=== PATIENT | female | born 1955 | race Caucasian/White ===

== ENCOUNTER → 2017-02-05 | Outpatient (CLI) | payer MEDICARE, OTHER ==
--- NOTE | 2017-02-05 16:27 | XR ---
EXAMINATION TYPE: XR orbit detect foreign body DATE OF EXAM: 02/05/2017 COMPARISON: NONE HISTORY: Pre-MRI foreign body TECHNIQUE: 3 views of the orbits are obtained. FINDINGS: No metallic intraorbital foreign body is seen to prevent MRI study. Punctate densities on o ne projection do not persist on additional views and are likely in the overlying skin. IMPRESSION: As above
--- NOTE | 2017-02-05 17:23 | MR ---
MR brain without contrast HISTORY: R 56.9, other convulsions seizures Multiplanar multisequence imaging through the brain No comparisons Encephalomalacia is present within the distribution of the middle cerebral artery on the left with as sociated gliotic change within the affected and adjacent brain, mild ex vacuo phenomenon present at t he left lateral ventricle due to volume loss. Internal carotid arteries, basilar artery, portions of the middle cerebral arteries show vascular flow voids. There is some cortical atrophy. No hemorrhage or hydrocephalus. No restricted diffusion to suggest subacute ischemia. Cerebellopontine angles, pitu itary, cervical medullary junction are within normal limits. There is some mild volume loss in the co rpus callosum suspected. The orbits show a symmetric appearance. Mild inflammatory change present in the mastoid air cells bilaterally. IMPRESSION: Chronic infarct left middle cerebral artery. Additional findings above.
== END | disposition home or self-care (01) ==
LOC: RADMRIMAIN 15:28
PROVIDERS: ATTEND Nurse Practitioner Acute Care
DX: R56.9 Unspecified convulsions (principal); Z88.0 Allergy status to penicillin; Z88.5 Allergy status to narcotic agent
CPT/HCPCS: 70030; 70551

== ENCOUNTER 2017-07-24 11:04 | Day surgery (SDC) | payer MEDICARE, OTHER ==
[2017-07-24 13:14] VITALS: TEMP 99
[2017-07-24 13:32] LABS: Glucose,Whole Blood 100 mg/dL (75-99)
[2017-07-24] MEDS ORDERED: LACTATED RINGERS 1,000 ML IV ONE (13:33)
[2017-07-24] MEDS ORDERED: LIDOCAINE 1% 20 ML VIAL (10MG/ML) FOR IV START INTRADERMA ONE (13:34)
[2017-07-24] MEDS ORDERED: MIDAZOLAM 2 MG/2 ML VIAL ONE (13:51)
[2017-07-24] MEDS ORDERED: KETAMINE 10 MG/ML 20 ML VIAL ONE (13:51)
[2017-07-24] MEDS ORDERED: PROPOFOL 10 MG/ML 20 ML VIAL IV ONE (13:51)
--- NOTE | 2017-07-24 14:23 | P.PCN ---
Date of Procedure: 07/24/17 Procedure(s) Performed: Brief history: Patient is a pleasant 62-year-old pleasant white female, resident of [facility] as scheduled for an elective upper endoscopy as well as colonoscopy as a part of evaluation of iron deficiency anemia. She is on Coumadin which has been on hold for the last 1 week duration. Procedure performed: Esophagogastroduodenoscopy with biopsy Colonoscopy Preoperative diagnosis: Iron deficiency anemia Anesthesia: MAC Procedure: After informed consent was obtained from the patient was brought into the endoscopy unit and IV sedation was administered by anesthesia under continuous monitoring. Initially upper endoscopy was done. The Olympus GF 160 video endoscope was inserted inserted into the mouth and esophagus intubated without any difficulty and was gradually advanced into the stomach and duodenum and carefully examined. The bulb and second part of the duodenum appeared normal. The scope was then withdrawn into the stomach adequately insufflated with air and upon careful examination the antrum and body, cardia and fundus had diffuse gastritis and biopsies were done from the antrum. The scope was then withdrawn into the esophagus. The GE junction was located at 40 cm to the incisors. It appeared regular with no erythema erosions or ulcerations. Rest of the esophagus appeared normal. Patient tolerated the procedure well. At this time the patient continued to remain sedation. Initial digital rectal examination was normal. Olympus CF 160 video colonoscope was then inserted into the rectum and gradually advanced to the cecum without any difficulty. Careful examination was performed as the scope was gradually being withdrawn. The prep was excellent. The cecum, ascending colon, transverse colon, descending colon, sigmoid colon and rectum appeared normal. Scattered left sided diverticulosis seen. Retroflexion was performed in the rectum and no lesions were noted. Patient tolerated the procedure well. Impression: 1. Upper endoscopy revealed severe diffuse gastritis involving the entire stomach but no evidence of esophagitis or peptic ulcer disease 2. Colonoscopy revealed scattered sigmoidal diverticulosis, no evidence of colorectal neoplasia Recommendations: Findings of this examination were discussed with the patient as well as her family. She was advised to follow with the biopsy results. She was given a prescription for Prilosec 20 mg daily to be taken half hour before breakfast. She can resume Coumadin today.
[2017-07-24 14:41] VITALS: RESP 16
[2017-07-24 14:55] VITALS: BP 147/71; PULSE 97
--- NOTE | 2017-07-31 09:55 | CDI ---
Dr. Min Presley, As per operative notes Indication for EGD and colonoscopy and H&P documented as Iron deficiency anemia; Anaesthesia record GI bleeding was documented. EGD report impression states Gastritis and Colonoscopy impression states Diverticulosis Based on your clinical opinion please clarify whether GI Bleeding is the current condition or patients history and if it is current, please confirm the etiology of GI bleeding. Sincerely, Aubrey Hamm-pulmonologist Radha Myers MBA, [employer]HW[employer], [facility] Political Consultant, [facility] [phone] [facility]
== END 2017-07-24 15:15 ==
LOC: ORWHC2ENDO 11:04
PROVIDERS: ATTEND Internal Medicine Gastroenterology
DX: K29.50 Unspecified chronic gastritis without bleeding (principal); E78.5 Hyperlipidemia, unspecified; K57.30 Diverticulosis of large intestine without perforation or abscess without bleeding; E11.40 Type 2 diabetes mellitus with diabetic neuropathy, unspecified; D50.9 Iron deficiency anemia, unspecified; I10 Essential (primary) hypertension; Z88.0 Allergy status to penicillin; Z88.5 Allergy status to narcotic agent; Z91.041 Radiographic dye allergy status; Z86.73 Personal history of transient ischemic attack (TIA), and cerebral infarction without residual deficits; Z79.82 Long term (current) use of aspirin; Z79.4 Long term (current) use of insulin; Z79.01 Long term (current) use of anticoagulants; Z79.899 Other long term (current) drug therapy
CPT/HCPCS: 88305; 88342; 45378; 43239; J2250; J2704

== ENCOUNTER 2018-08-30 19:18 | Inpatient (IN) | payer MEDICARE, OTHER ==
[2018-08-30] MEDS ORDERED: NALOXONE 0.4 MG/ML 1 ML VIAL IV PRN (23:17)
[2018-08-30] MEDS ORDERED: ACETAMINOPHEN TAB 325 MG TAB PO PRN (23:17)
--- NOTE | 2018-08-30 23:17 | ED ---
URI HPI - General Chief Complaint: Upper Respiratory Infection Stated Complaint: Influenza Time Seen by Provider: 08/30/18 19:28 Source: patient, family, RN/MD, EMS, RN notes reviewed, old records reviewed Mode of arrival: EMS Limitations: altered mental status - History of Present Illness Initial Comments: This was a 63-year-old female with a history of CVA renal insufficiency hyperlipidemia reflux hypertension atherosclerotic heart disease> coma who is a care home resident who is a presented to [facility] today with complaints of weakness for the past 2 days confusion and weakness is struggling with her ADLs. Fever was noted today some generalized tremor. She was taken to the hospital and found to have type A influenza. She also has renal insufficiency. She was transferred here for further evaluation and treatment. No evidence of new CVA or neurological findings were noted. MD Complaint: fever, cough, other - Related Data Home Medications Medication Instructions Recorded Confirmed ALPRAZolam [Xanax] 0.25 mg PO DAILY PRN 07/24/17 08/30/18 Allopurinol [Zyloprim] 200 mg PO DAILY 07/24/17 08/30/18 Aspirin 81 mg PO DAILY 07/24/17 08/30/18 Atorvastatin [Lipitor] 10 mg PO DAILY 07/24/17 08/30/18 Ergocalciferol [Vitamin D2 1 tab PO QMONTH 07/24/17 08/30/18 (DRISDOL)] Lisinopril [Zestril] 10 mg PO DAILY 07/24/17 08/30/18 Pregabalin [Lyrica] 75 mg PO BID@0700,1900 07/24/17 08/30/18 Acetaminophen [Tylenol] 1,000 mg PO Q8HR PRN 08/30/18 08/30/18 Docusate [Colace] 100 mg PO DAILY PRN 08/30/18 08/30/18 Dorzolamide 2% [Trusopt 2%] 1 drop BOTH EYES BID@0500,2000 08/30/18 08/30/18 Epoetin Josh [Epogen] 20,000 unit SQ Q7D 08/30/18 08/30/18 Ferrous Sulfate [Feosol] 325 mg PO DAILY 08/30/18 08/30/18 Fluorometholone 0.1% Ophth Juanita 1 drop RIGHT EYE DAILY 08/30/18 08/30/18 [Fml] Insulin Aspart [NovoLOG] 10 unit SQ DAILY@1700 08/30/18 08/30/18 Insulin Aspart [NovoLOG] 15 unit SQ DAILY@1200 08/30/18 08/30/18 Insulin Glargine [Lantus] 45 unit SQ DAILY@0700 08/30/18 08/30/18 Latanoprost/Pf [Latanoprost 0.005% 1 drop BOTH EYES DAILY@199908/30/18 08/30/18 Eye Drop] Magnesium Hydroxide [Milk of 2,400 mg PO DAILY PRN 08/30/18 08/30/18 Magnesia] Na Phos,M-B/Na Phos,Di-Ba [Fleet 133 ml RECTAL Q72H PRN 08/30/18 08/30/18 Adult] Nitroglycerin Sl Tabs [Nitrostat] 0.4 mg SL DIRECTED 08/30/18 08/30/18 Omeprazole 20 mg PO BID@0600,1600 08/30/18 08/30/18 Ondansetron HCl [Zofran] 4 mg PO Q4H PRN 08/30/18 08/30/18 Pioglitazone [Actos] 30 mg PO DAILY@0700 08/30/18 08/30/18 Sertraline [Zoloft] 25 mg PO DAILY@0700 08/30/18 08/30/18 Sertraline [Zoloft] 50 mg PO DAILY@0700 08/30/18 08/30/18 Timolol 0.5% Ophth Soln [Timoptic 1 drop BOTH EYES BID@0500,1700 08/30/18 0.5% Ophth Soln] Torsemide [Demadex] 40 mg PO DAILY@0700 08/30/18 08/30/18 Warfarin [Coumadin] 3 mg PO HS@199908/30/18 08/30/18 amLODIPine [Norvasc] 5 mg PO DAILY 08/30/18 08/30/18 Allergies Allergy/AdvReac Type Severity Reaction Status Date / Time Iodine and Iodide Containing Allergy Rash/Hives Verified 08/30/18 20:11 Produc Penicillins Allergy Rash/Hives Verified 08/30/18 20:11 codeine AdvReac Itching Verified 08/30/18 20:11 IV DYE Allergy Rash/Hives Uncoded 07/24/17 13:20 Review of Systems ROS Statement: Those systems with pertinent positive or pertinent negative responses have been documented in the HPI. ROS Other: All systems not noted in ROS Statement are negative. Past Medical History Past Medical History: Coronary Artery Disease (CAD), Heart Failure, CVA/TIA, Diabetes Mellitus, Deep Vein Thrombosis (DVT), GERD/Reflux, Hypertension, Pulmonary Embolus (PE), Renal Disease Additional Past Medical History / Comment(s): tremmors, right sided weakness from CVA. Immobile uses hiral lift at [facility]. History of Any Multi-Drug Resistant Organisms: None Reported Past Surgical History: Tonsillectomy Additional Past Surgical History / Comment(s): G tube, pressure pump right eye Past Psychological History: Anxiety, Depression Smoking Status: Never smoker Past Alcohol Use History: None Reported Past Drug Use History: None Reported General Exam - General Exam Comments Initial Comments: This is a well-developed obese female who was awake and alert slow to respond with the stigmata of her previous CVA Limitations: altered mental status General appearance: alert, lethargic Head exam: Present: atraumatic, normocephalic, normal inspection Eye exam: Present: normal appearance, PERRL, EOMI. Absent: scleral icterus, conjunctival injection, periorbital swelling ENT exam: Present: mucous membranes dry Neck exam: Present: normal inspection, full ROM, other (No stridor JVD or bruits ). Absent: tenderness, meningismus, lymphadenopathy Respiratory exam: Present: normal lung sounds bilaterally. Absent: respiratory distress, wheezes, rales, rhonchi, stridor Cardiovascular Exam: Present: regular rate, normal rhythm, normal heart sounds. Absent: systolic murmur, diastolic murmur, rubs, gallop, clicks GI/Abdominal exam: Present: soft, normal bowel sounds. Absent: distended, tenderness, guarding, rebound, rigid Rectal exam: Present: deferred Extremities exam: Present: normal inspection, normal capillary refill, other ( She does demonstrate right maisha-paresis). Absent: tenderness, pedal edema, joint swelling, calf tenderness Back exam: Present: normal inspection Neurological exam: Present: alert, oriented X3, CN II-XII intact, motor sensory deficit Psychiatric exam: Present: normal affect, normal mood Skin exam: Present: warm, dry, intact, normal color. Absent: rash Course Vital Signs 08/30/18 08/30/18 08/30/18 19:24 19:27 19:30 Temperature 99.1 F Pulse Rate 91 92 Respiratory 20 18 Rate Blood Pressure 126/64 124/66 124/66 O2 Sat by Pulse 97 Oximetry 08/30/18 08/30/18 08/30/18 19:40 19:50 20:00 Temperature Pulse Rate 93 90 91 Respiratory 22 18 17 Rate Blood Pressure 126/64 126/64 126/64 O2 Sat by Pulse 97 99 97 Oximetry 08/30/18 08/30/18 08/30/18 20:07 20:10 20:20 Temperature Pulse Rate 90 93 Respiratory 18 15 22 Rate Blood Pressure 106/59 106/59 O2 Sat by Pulse 97 97 Oximetry 08/30/18 08/30/18 08/30/18 20:30 20:40 20:50 Temperature Pulse Rate 91 90 90 Respiratory 18 18 17 Rate Blood Pressure 106/59 105/77 105/77 O2 Sat by Pulse 98 98 98 Oximetry 08/30/18 08/30/18 08/30/18 21:00 21:10 21:20 Temperature Pulse Rate 92 90 91 Respiratory 15 17 16 Rate Blood Pressure 105/77 117/59 117/59 O2 Sat by Pulse 98 98 99 Oximetry 08/30/18 08/30/18 21:30 21:40 Temperature Pulse Rate 91 89 Respiratory 17 16 Rate Blood Pressure 117/59 111/95 O2 Sat by Pulse 97 97 Oximetry Medical Decision Making - Medical Decision Making I did review the materials presented with the patient. She does have influenza type A and renal insufficiency failure to thrive febrile illness she will be admitted I did discuss case with Dr. Guevara Disposition Clinical Impression: Influenza, Febrile illness, acute, Failure to thrive, History of CVA ( cerebrovascular accident) Disposition: ADMITTED IP TO THIS [facility] Condition: Stable Referrals: Mina Lopez MD [Primary Care Provider] - 1-2 days
[2018-08-30] MEDS ORDERED: NITROGLYCERIN SL TABS 0.4 MG TAB SUBLINGUAL PRN (23:19)
[2018-08-30] MEDS ORDERED: ONDANSETRON 4 MG TAB PO PRN (23:19)
[2018-08-30] MEDS ORDERED: ACETAMINOPHEN TAB 500 MG TAB PO PRN (23:19)
[2018-08-30] MEDS ORDERED: ALPRAZolam 0.25 MG TAB PO PRN (23:19)
[2018-08-30] MEDS ORDERED: MAGNESIUM HYDROXIDE 2,400 MG/10 ML CUP PO PRN (23:19)
--- NOTE | 2018-08-30 23:23 | ED ---
Disposition Clinical Impression: Influenza, Febrile illness, acute, Failure to thrive, History of CVA ( cerebrovascular accident), Renal insufficiency syndrome Disposition: ADMITTED IP TO THIS HOSP Condition: Stable Referrals: Mina Lopez MD [Primary Care Provider] - 1-2 days
[2018-08-30] MEDS ORDERED: NA PHOS,M-B/NA PHOS,DI-BA 133 ML ENEMA RECTAL PRN (23:30)
[2018-08-31] MEDS: SODIUM CHLORIDE 0.9% 1,000 ML IV SCH ×2 (00:11→12:29)
[2018-08-31] MEDS: TIMOLOL 0.5% OPHTH DROPS 5 ML BTL BOTH EYES SCH ×2 (05:18→17:13)
[2018-08-31] MEDS: PANTOPRAZOLE 40 MG TABLET PO SCH ×2 (05:18→16:08)
[2018-08-31] MEDS: DORZOLAMIDE HCL 2% DROPS 10 ML BTL BOTH EYES SCH ×2 (05:19→19:25)
[2018-08-31] MEDS ORDERED: TORSEMIDE 20 MG TAB PO SCH (07:00)
[2018-08-31 07:25] LABS: Glucose,Whole Blood 117 mg/dL (75-99)
[2018-08-31 08:36] LABS: INR 2.6 (<1.2); Prothrombin Time 25.1 sec (9.0-12.0)
[2018-08-31] MEDS: INSULIN DETEMIR (LEVEMIR) 100 UNIT/ML SYR SQ SCH (08:57)
[2018-08-31] MEDS: ALLOPURINOL 100 MG TAB PO SCH (08:57)
[2018-08-31] MEDS: SERTRALINE 50 MG TAB PO SCH (08:58)
[2018-08-31] MEDS: PREGABALIN 75 MG CAP PO SCH ×2 (08:58→19:25)
[2018-08-31] MEDS: ASPIRIN 81 MG PO SCH (08:58)
[2018-08-31] MEDS: ATORVASTATIN 10 MG TAB PO SCH (08:58)
[2018-08-31] MEDS: amLODIPine 5 MG TAB PO SCH (08:58)
[2018-08-31] MEDS: FERROUS SULFATE 325 MG TAB PO SCH (08:58)
[2018-08-31] MEDS: SERTRALINE 25 MG TAB PO SCH (08:58)
[2018-08-31] MEDS: PIOGLITAZONE 30 MG TAB PO SCH (08:59)
[2018-08-31] MEDS: FLUOROMETHOLONE 0.1% OPHTH DROPS 5 ML BTL RIGHT EYE SCH (08:59)
[2018-08-31] MEDS ORDERED: DOCUSATE 100 MG CAP PO PRN (09:00)
[2018-08-31] MEDS ORDERED: LISINOPRIL 10 MG TAB PO SCH (09:00)
[2018-08-31 11:35] LABS: Glucose,Whole Blood 173 mg/dL (75-99)
[2018-08-31] MEDS: INSULIN ASPART (NovoLOG) 100 UNIT/ML VIAL SQ SCH ×2 (12:29→17:13)
--- NOTE | 2018-08-31 15:17 | CONS ---
CONSULTATION Patient is a 63-year-old female with a history of chronic kidney disease and NKF stage IV, secondary to nephrosclerosis. Her last creatinine in the office was 2.5 on 06/25 with estimated GFR 19.5 mL/minute. Patient also has significant bilateral lower extremity edema for which she is maintained on diuretics. She was admitted to the hospital and initially presented to [facility] with increasing weakness, fever, not feeling well, runny nose and cough. She was found to be positive for influenza A and was transferred to May. Patient states she is feeling slightly better. She continues to have the cough. She denies any significant nausea, vomiting or abdominal pain. PAST MEDICAL HISTORY: Coronary artery disease, history of CVA, TIA, obesity, type 2 diabetes, previous history of DVT, CKD, stage IV secondary to nephrosclerosis, previous history of PE, right-sided hemiparesis. PAST SURGICAL HISTORY: Tonsillectomy and previous history of G-tube. SOCIAL HISTORY: Negative for smoking, drug abuse or alcohol abuse. MEDICATIONS: At home prior to admission included Lipitor, Zyloprim, Xanax, aspirin, Drisdol, Zestril, Lyrica, Tylenol, Epogen, iron, insulin, omeprazole, Zofran, Actos, Zoloft, Coumadin, Demadex, Norvasc. ALLERGIES: Include IODINE, PENICILLIN, both of which cause rash and hives. PHYSICAL EXAMINATION: Patient is comfortable, awake. She is not in any acute distress. Alert and oriented x3. Blood pressure is 124/74, heart rate 88 per minute. She is afebrile. Examination of the heart, S1, S2. Examination of the lungs, bilateral breath sounds are heard. Abdomen is soft, nontender, obese. Examination of lower extremities shows edema 2+ bilaterally. MEND WORKER exam is grossly intact. LABS: We will obtain labs from today. ASSESSMENT: 1. Chronic kidney disease stage IV with previous creatinine in May of 2.5 mg/dL with GFR at 19.5 mL/minute, secondary to nephrosclerosis. 2. Influenza A. 3. Hypertension with chronic kidney disease, stage IV. 4. Anemia of chronic disease with previous history of iron deficiency as well. 5. Type 2 diabetes, maintained on insulin off of metformin as outpatient. PLAN: Hold off on the Zestril for now. Check labs today as well as in a.m. May continue with IV fluids. However, I will decrease the fluids to 50 mL an hour and I will hold the Demadex as well. PLAN: Discontinue lisinopril, discontinue Demadex. Decrease IV fluids. Repeat labs in a.m. Avoid nephrotoxic agents. Avoid phosphate enemas. Thank you for this consultation. Will continue to follow the patient with you during her hospitalization. MMODL / IJN: [id number] /
[2018-08-31 16:59] LABS: Glucose,Whole Blood 155 mg/dL (75-99)
[2018-08-31] MEDS: LATANOPROST 0.005% OPHTH DROPS 2.5 ML BTL BOTH EYES SCH (19:25)
[2018-08-31] MEDS: WARFARIN 3 MG TAB PO SCH (19:25)
[2018-08-31 20:22] LABS: Glucose,Whole Blood 127 mg/dL (75-99)
--- NOTE | 2018-08-31 20:40 | HP ---
HISTORY AND PHYSICAL DATE OF SERVICE: August 30, 2018. DATE OF SERVICE: August 31, 2018. PRESENTING COMPLAINT: Influenza positive. HISTORY OF PRESENTING COMPLAINT: This is a 63-year-old patient who follows with Dr. Mina Lopez. The patient is a resident of [facility], was sent here from [facility]. She was feeling weak tired and congested. She was positive for influenza A and transferred down here. Chronic stable medical conditions include coronary artery disease, congestive heart failure, diabetes, GERD, hypertension, right-sided weakness, anxiety, depression. The patient is pretty much bed bound and uses a Fany lift. The patient has slight cough. Appetite is slightly gone down. The patient has got chronic kidney disease for which Nephrology was consulted. The patient is not the best of historians. Can answer some simple questions. REVIEW OF SYSTEMS: CONSTITUTIONAL: Tired. HEENT congested. RESPIRATORY: Slight cough, congested. CARDIOVASCULAR: No chest pain. GASTROINTESTINAL: None. GENITOURINARY: Some incontinence. MUSCULOSKELETAL: Pain in the joints. Weakness on the right side. PSYCHIATRY: Anxiety and depression. NEUROLOGICAL: The patient has some tremors at baseline and some right-sided weakness. PAST MEDICAL HISTORY: Coronary artery disease, congestive heart failure, stroke, diabetes, DVT, GERD, hypertension, PE, chronic kidney disease, right-sided weakness from prior stroke, uses a Fany lift. PAST SURGICAL HISTORY: Tonsillectomy, NG tube, pressure pump in the right eye. PSYCH HISTORY: Anxiety and depression. SOCIAL HISTORY: Does not smoke or drink alcohol. Fany lift is used. Resident of [facility]. FAMILY HISTORY: The patient is not able to tell. HOME MEDICATIONS: 1. Norvasc 5 mg a day. 2. Coumadin 3 mg q.h.s. 3. Demadex 40 mg p.o. daily. 4. Timoptic 0.5% 1 drop to both eyes b.i.d. 5. Zoloft 25 mg a day. 6. Lyrica 75 mg b.i.d. 7. Actos 30 mg a day. 8. Zofran 4 mg q.4 p.r.n. 9. Omeprazole 20 mg b.i.d. 10.Nitrostat 0.4 sublingual p.r.n. 11.Adult Fleet 133 mL q72 hours p.r.n. 12.Milk of magnesia 2400 mg p.o. daily p.r.n. 13.Zestril 10 mg p.o. daily. 14.Latanoprost 0.005% 1 drop both eyes daily. 15.Lantus 45 units subcu daily. 16.NovoLog 10 units at 5:00 pm, 15 units with lunch. 17.Fluorometholone 0.1% eyedrops 1 drop right eye daily. 18.Iron 325 p.o. daily. 19.Vitamin D2 1 tablet p.o. every month. 20.Epogen 25 units every 7 days. 21.Trusopt 2% 1 drop to both eyes b.i.d. 22.Colace 100 mg daily p.r.n. 23.Lipitor 10 mg p.o. daily. 24.Aspirin 81 mg p.o. daily. 25.Allopurinol 200 mg p.o. daily. 26.Tylenol 1000 mg p.o. q.8h p.r.n. 27.Xanax 0.25 p.o. daily p.r.n. ALLERGIES: TO IODINE, PENICILLIN, IV DYE. PHYSICAL EXAMINATION: VITAL SIGNS: Vital signs on presentation: Temperature 99.1, pulse 91, respiration 20, blood pressure 126/64, pulse ox 97% on 2 L. GENERAL APPEARANCE: Well built, BMI 45.4, sitting up, tired appearing. EYES: Pupils equal. Conjunctivae normal. HEENT: External appearance of nose and ears normal. Oral cavity normal. NECK: Short and thick. JVD unable to assess. Mass not palpable. RESPIRATORY: Effort increased. LUNGS: Decreased breath sounds. Some expiratory crackles. CHEST: Congested. CARDIOVASCULAR: Heart sounds muffled, minimal edema. ABDOMEN: Distended, soft. Liver and spleen not palpable. LYMPHATICS: No lymph nodes palpable in the neck and axilla. PSYCHIATRY: The patient is able to answer some questions, often times is quiet. NEUROLOGICAL: Pupils equal. No facial asymmetry. Some weakness on the right side. INVESTIGATIONS: Blood work from here shows INR of 2.6. Accu-Cheks are 117, 173. ASSESSMENT: 1. Acute influenza A with pneumonitis. 2. Chronic kidney disease, stage III, suspected from nephrosclerosis. 3. Coronary artery disease. 4. Right-sided weakness from a prior stroke. 5. Diabetes mellitus type 2. 6. Gastroesophageal reflux disease. 7. Essential hypertension. 8. Medical debility uses a Fany lift. 9. Morbid obesity BMI 45.4. 10.Anxiety and depression, not otherwise specified. PLAN: Home medications resumed. Nephrology was consulted. Tamiflu will be continued. Care was attempted to be discussed with the patient. Follow. MMODL / IJN: [id number] /
[2018-08-31] MEDS: OSELTAMIVIR 75 MG CAP PO SCH (21:23)
[2018-09-01] MEDS: TIMOLOL 0.5% OPHTH DROPS 5 ML BTL BOTH EYES SCH ×2 (05:51→17:28)
[2018-09-01] MEDS: PANTOPRAZOLE 40 MG TABLET PO SCH ×2 (05:51→17:27)
[2018-09-01] MEDS: DORZOLAMIDE HCL 2% DROPS 10 ML BTL BOTH EYES SCH ×2 (05:51→21:33)
[2018-09-01 07:13] LABS: Glucose,Whole Blood 97 mg/dL (75-99)
[2018-09-01 07:56] LABS: Prothrombin Time 19.4 sec (9.0-12.0)
[2018-09-01 08:05] LABS: Anisocytosis Slight; HCT 31.6 % (34.0-46.0); HGB 9.5 gm/dL (11.4-16.0); Hypochromasia Marked; MCHC 30.2 g/dL (31.0-37.0); MCV 99.3 fL (80.0-100.0); Macrocytosis Slight; Mean Platelet Volume 8.4; Platelet Count 209 k/uL (150-450); RBC 3.18 m/uL (3.80-5.40); RDW 17.7 % (11.5-15.5); WBC 4.2 k/uL (3.8-10.6)
[2018-09-01] MEDS: FERROUS SULFATE 325 MG TAB PO SCH (08:06)
[2018-09-01] MEDS: ATORVASTATIN 10 MG TAB PO SCH (08:06)
[2018-09-01] MEDS: PREGABALIN 75 MG CAP PO SCH ×2 (08:06→17:28)
[2018-09-01] MEDS: ASPIRIN 81 MG PO SCH (08:07)
[2018-09-01] MEDS: amLODIPine 5 MG TAB PO SCH (08:07)
[2018-09-01] MEDS: SERTRALINE 50 MG TAB PO SCH (08:07)
[2018-09-01] MEDS: ALLOPURINOL 100 MG TAB PO SCH (08:07)
[2018-09-01] MEDS: SERTRALINE 25 MG TAB PO SCH (08:08)
[2018-09-01] MEDS: PIOGLITAZONE 30 MG TAB PO SCH (08:08)
[2018-09-01] MEDS: SODIUM CHLORIDE 0.9% 1,000 ML IV SCH (08:08)
[2018-09-01] MEDS: OSELTAMIVIR 75 MG CAP PO SCH ×2 (08:09→21:32)
[2018-09-01] MEDS: FLUOROMETHOLONE 0.1% OPHTH DROPS 5 ML BTL RIGHT EYE SCH (08:10)
[2018-09-01 08:12] LABS: Calcium 8.6 mg/dL (8.4-10.2); Potassium 4.9 mmol/L (3.5-5.1)
[2018-09-01] MEDS: INSULIN DETEMIR (LEVEMIR) 100 UNIT/ML SYR SQ SCH (08:15)
[2018-09-01 10:06] LABS: Eosinophils # (M) 0.08 k/uL (0-0.7); Lymphocytes # (M) 1.39 k/uL (1.0-4.8); Monocytes # (M) 0.29 k/uL (0-1.0); Neutrophils # (M) 2.44 k/uL (1.3-7.7); Neutrophils % (M) 58 %; Nucleated Red Blood Cells 0 /100 WBC (0-0); Total Cells Counted 100
[2018-09-01 11:44] LABS: Glucose,Whole Blood 175 mg/dL (75-99)
[2018-09-01] MEDS: INSULIN ASPART (NovoLOG) 100 UNIT/ML VIAL SQ SCH ×2 (12:00→17:29)
[2018-09-01 16:42] LABS: Glucose,Whole Blood 170 mg/dL (75-99)
[2018-09-01 19:56] LABS: Glucose,Whole Blood 207 mg/dL (75-99)
[2018-09-01] MEDS: WARFARIN 3 MG TAB PO SCH (21:32)
[2018-09-01] MEDS: LATANOPROST 0.005% OPHTH DROPS 2.5 ML BTL BOTH EYES SCH (21:33)
--- NOTE | 2018-09-01 22:08 | PN ---
PROGRESS NOTE Patient is seen for followup for CKD, stage IV. Her renal function is close to baseline, with creatinine at 2.4 mg/dL now. Patient was admitted to the hospital with influenza A. She initially presented to [facility] and was transferred over. Patient was maintained on IV fluids, which are now decreased to 50 mL/hour. Patient is trying to increase her oral intake. She denies any chest pain. She continues to have significant cough. On examination, blood pressure was 109/51, heart rate 84 per minute. Patient is afebrile. EXAMINATION OF THE HEART: S1 and S2. EXAMINATION OF LUNGS: Bilateral breath sounds are heard. Wheezing is heard bilaterally. ABDOMEN: Soft, non-tender. Examination of lower extremities shows chronic skin changes, edema 1+ bilaterally. Labs show sodium of 143, potassium 4.9, BUN 105, serum creatinine of 2.47. ASSESSMENT: 1. Chronic kidney disease, stage IV, secondary to nephrosclerosis. Renal function at baseline. 2. Chronic lower extremity edema with some degree of volume overload. I will discontinue the IV fluids and patient will be encouraged to increase her oral intake. The KORTNEY inhibitors are currently on hold. Blood pressure is on the lower side. I will also hold the Norvasc for now. 3. Influenza A, maintained on Tamiflu. 4. Anemia of chronic disease with previous history of iron deficiency as outpatient. 5. Type 2 diabetes, maintained on insulin. PLAN: Discontinue IV fluids. Encourage increased oral intake. Hold off on the Norvasc, as blood pressure is low. Repeat labs in a.m. Continue to avoid nephrotoxic agents. We may need to resume her diuretics, depending upon her volume status tomorrow. MMODL / IJN: [id number] /
[2018-09-01] MEDS: guaiFENesin 600 MG TABLET.ER PO SCH (22:58)
--- NOTE | 2018-09-01 23:32 | PN ---
PROGRESS NOTE DATE OF SERVICE: 09/01/2018. PRESENTING COMPLAINT: Cough. INTERVAL HISTORY: Patient has multiple medical problems, presented with influenza A and secondary bronchospasm. Also has underlying chronic kidney disease. The patient's sister is at the bedside. The patient at baseline requires Fany lift. Somewhat congested. Was tolerating a diet. REVIEW OF SYSTEMS: Done for constitutional, cardiovascular, GI, pulmonary; relevant findings as above. CURRENT MEDICATIONS: Reviewed, that include Tamiflu. PHYSICAL EXAMINATION: Temperature 98.8, pulse 58, respirations 16, blood pressure 94/62, pulse 95% on room air. GENERAL APPEARANCE: Propped up in bed, awake. EYES: Pupils equal. Conjunctivae normal. NECK: JVD not raised. Mass not palpable. RESPIRATORY: Effort increased. LUNGS: Slightly decreased breath sounds. Some bronchospasm with crackles. CARDIOVASCULAR: 1st and 2nd heart sounds muffled. Minimal edema. ABDOMEN: Distended, soft. Liver and spleen not palpable. NEUROLOGIC: The patient is weak on the right side. Speech is slow at baseline. INVESTIGATIONS: Potassium 4.2, hemoglobin 9.5, potassium 4.9, BUN 105, creatinine 2.47. ASSESSMENT: 1. Acute influenza a with pneumonitis resulting in secondary bronchospasm. 2. Chronic kidney disease stage 4 from nephrosclerosis. 3. Coronary artery disease. 4. 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 5. Diabetes mellitus type 2. 6. Gastroesophageal reflux disease. 7. Essential hypertension. 8. Medical debility at baseline using Fany lift. 9. Morbid obesity BMI 55.4. 10.Anxiety and depression, not otherwise specified. 11.Coumadin monitoring. PLAN: Continue with Tamiflu and other medications. Will add some Mucinex and albuterol. Per Nephrology, Lasix has been discontinued. Care was discussed with the sister at the bedside. MMODL / IJN: [id number] /
[2018-09-02] MEDS: ALBUTEROL NEBULIZED 2.5 MG/3 ML INHALATION SCH ×5 (00:25→20:37)
[2018-09-02] MEDS: DORZOLAMIDE HCL 2% DROPS 10 ML BTL BOTH EYES SCH ×2 (06:04→19:37)
[2018-09-02] MEDS: PANTOPRAZOLE 40 MG TABLET PO SCH ×2 (06:04→17:33)
[2018-09-02] MEDS: TIMOLOL 0.5% OPHTH DROPS 5 ML BTL BOTH EYES SCH ×2 (06:04→17:33)
[2018-09-02 07:34] LABS: Glucose,Whole Blood 128 mg/dL (75-99)
[2018-09-02 08:03] LABS: Prothrombin Time 19.8 sec (9.0-12.0)
[2018-09-02] MEDS: FERROUS SULFATE 325 MG TAB PO SCH (08:05)
[2018-09-02] MEDS: SERTRALINE 50 MG TAB PO SCH (08:05)
[2018-09-02] MEDS: guaiFENesin 600 MG TABLET.ER PO SCH ×2 (08:06→19:37)
[2018-09-02] MEDS: ALLOPURINOL 100 MG TAB PO SCH (08:06)
[2018-09-02] MEDS: PREGABALIN 75 MG CAP PO SCH ×2 (08:06→19:37)
[2018-09-02] MEDS: ATORVASTATIN 10 MG TAB PO SCH (08:06)
[2018-09-02] MEDS: ASPIRIN 81 MG PO SCH (08:06)
[2018-09-02] MEDS: PIOGLITAZONE 30 MG TAB PO SCH (08:07)
[2018-09-02] MEDS: OSELTAMIVIR 75 MG CAP PO SCH (08:07)
[2018-09-02] MEDS: SERTRALINE 25 MG TAB PO SCH (08:07)
[2018-09-02] MEDS: INSULIN DETEMIR (LEVEMIR) 100 UNIT/ML SYR SQ SCH (08:08)
[2018-09-02] MEDS: FLUOROMETHOLONE 0.1% OPHTH DROPS 5 ML BTL RIGHT EYE SCH (08:08)
[2018-09-02 08:29] LABS: Calcium 8.5 mg/dL (8.4-10.2); Potassium 5.1 mmol/L (3.5-5.1)
[2018-09-02 12:00] LABS: Glucose,Whole Blood 198 mg/dL (75-99)
[2018-09-02] MEDS: INSULIN ASPART (NovoLOG) 100 UNIT/ML VIAL SQ SCH ×2 (12:14→17:34)
--- NOTE | 2018-09-02 12:47 | P.PN ---
Subjective Patient is seen in follow-up for acute kidney injury on chronic kidney disease. Patient has chronic kidney disease stage IV secondary to nephrosclerosis. GFR is at baseline. No vomiting or diarrhea. Oral intake is fair. She is nonoliguric. Diuretics are held. IV fluids were discontinued yesterday. Vital signs are stable. General: The patient appeared well nourished and normally developed. HEENT: Head exam is unremarkable. Neck is without jugular venous distension. LUNGS: Breath sounds decreased. HEART: Rate and Rhythm are regular. First and second heart sounds normal. No murmurs, rubs or gallops. ABDOMEN: Abdominal exam reveals normal bowel sounds. Non-tender and non- distended. No evidence of peritonitis. EXTREMITITES: No clubbing, cyanosis, or edema. Objective - Vital Signs Vital signs: Vital Signs Temp 98.5 F 09/02/18 07:00 Pulse 72 09/02/18 09:01 Resp 14 09/02/18 08:00 BP 93/52 09/02/18 07:00 Pulse Ox 96 09/02/18 08:49 Intake & Output 09/01/18 09/02/18 09/02/18 18:59 06:59 18:59 Intake Total 100 118 Output Total 1400 400 Balance -1400 -300 118 Weight 141 kg Intake: Oral 100 118 Output: Urine 1400 400 Other: Voiding Method Incontinent Incontinent Incontinent # Voids 1 - Labs CBC & Chem 7: 09/01/18 07:17 09/02/18 06:44 Labs: Abnormal Lab Results - Last 24 Hours (Table) 09/01/18 09/01/18 09/02/18 Range/Units 16:39 19:44 06:44 PT 19.8 H (9.0-12.0) sec INR 2.0 H (<1.2) Chloride (98-107) mmol/L BUN (7-17) mg/dL Creatinine (0.52-1.04) mg/dL Glucose (74-99) mg/dL POC Glucose (mg/dL) 170 H 207 H (75-99) mg/dL 09/02/18 09/02/18 09/02/18 Range/Units 06:44 07:22 11:49 PT (9.0-12.0) sec INR (<1.2) Chloride 108 H (98-107) mmol/L BUN 101 H* (7-17) mg/dL Creatinine 2.14 H (0.52-1.04) mg/dL Glucose 115 H (74-99) mg/dL POC Glucose (mg/dL) 128 H 198 H (75-99) mg/dL Assessment and Plan Plan: Assessment: 1. Acute kidney injury mostly prerenal secondary to infection improved with IV hydration. Creatinine 2.14 today. 2. Chronic kidney disease stage IV secondary to nephrosclerosis. GFR at baseline. 3. Influenza A virus maintained on Tamiflu. 4. Insulin-dependent diabetes mellitus. 5. Anemia of chronic kidney disease. Maintained on Aranesp. 6. Hypertension with chronic kidney disease. Blood pressures still on the lower side. Plan: Hold off on diuretics for now. Encourage oral intake. Repeat electrolytes the morning.
[2018-09-02 17:01] LABS: Glucose,Whole Blood 144 mg/dL (75-99)
[2018-09-02] MEDS: LATANOPROST 0.005% OPHTH DROPS 2.5 ML BTL BOTH EYES SCH (19:37)
[2018-09-02] MEDS: WARFARIN 3 MG TAB PO SCH (19:37)
[2018-09-02 20:36] LABS: Glucose,Whole Blood 110 mg/dL (75-99)
--- NOTE | 2018-09-02 23:05 | PN ---
PROGRESS NOTE DATE OF SERVICE: 09/02/2018 PRESENTING COMPLAINT: Cough. INTERVAL HISTORY: Patient admitted with influenza A and pneumonitis secondary to bronchospasm. Still has audible crackles. Tolerating a diet. Also being followed for renal failure. Patient has a slight cough. REVIEW OF SYSTEMS: Done for constitutional, cardiovascular, GI, pulmonary; relevant findings as above. CURRENT MEDICATIONS: Reviewed. They include albuterol, bronchodilator, Tamiflu and Mucinex. PHYSICAL EXAMINATION: Temperature 98.7, pulse 69, respiration 17, blood pressure 107/66, pulse ox 96% on 2 L. GENERAL APPEARANCE: Lying in bed. Tired but awake. EYES: Pupils equal. Conjunctivae normal. NECK: JVD unable to assess. Mass not palpable. RESPIRATORY: Effort increased. LUNGS: Slightly decreased breath sounds. Expiratory some crackles. CARDIOVASCULAR: First and second sounds muffled. Minimal edema. ABDOMEN: Soft, non-tender. Liver and spleen not palpable. NEUROLOGICAL: Patient is weak on the right side. Speech is slow at baseline. INVESTIGATIONS: INR 2. Potassium 5.1. BUN 101, creatinine 2.14. ASSESSMENT: 1. Acute influenza A with pneumonitis resulting in secondary bronchospasm. 2. Chronic kidney disease, stage IV, from nephrosclerosis. 3. Coronary artery disease. 4. 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 5. Diabetes mellitus, type 2. 6. Gastroesophageal reflux disease. 7. Essential hypertension. 8. Medical debility. At baseline uses a Fany lift. 9. Morbid obesity; body mass index 55.4. 10.Anxiety and depression not otherwise specified. 11.Coumadin monitoring. 12.Acute kidney injury, probably prerenal, secondary to infection. PLAN: Care was discussed with the patient's sister at the bedside. Patient is being followed by Nephrology. They have held off patient's diuretics. Creatinine has come down from 2.47 to 2.14. MMODL / IJN: [id number] /
[2018-09-03] MEDS: PANTOPRAZOLE 40 MG TABLET PO SCH ×2 (05:19→17:07)
[2018-09-03] MEDS: TIMOLOL 0.5% OPHTH DROPS 5 ML BTL BOTH EYES SCH ×2 (05:20→17:07)
[2018-09-03] MEDS: DORZOLAMIDE HCL 2% DROPS 10 ML BTL BOTH EYES SCH ×2 (05:20→20:18)
[2018-09-03 07:11] LABS: Glucose,Whole Blood 103 mg/dL (75-99)
[2018-09-03 07:13] LABS: INR 2.5 (<1.2); Prothrombin Time 24.5 sec (9.0-12.0)
[2018-09-03 07:28] LABS: Calcium 8.7 mg/dL (8.4-10.2)
[2018-09-03] MEDS: ALLOPURINOL 100 MG TAB PO SCH (07:36)
[2018-09-03] MEDS: INSULIN DETEMIR (LEVEMIR) 100 UNIT/ML SYR SQ SCH (07:36)
[2018-09-03] MEDS: ATORVASTATIN 10 MG TAB PO SCH (07:36)
[2018-09-03] MEDS: ASPIRIN 81 MG PO SCH (07:36)
[2018-09-03] MEDS: guaiFENesin 600 MG TABLET.ER PO SCH ×2 (07:36→20:18)
[2018-09-03] MEDS: SERTRALINE 50 MG TAB PO SCH (07:36)
[2018-09-03] MEDS: PREGABALIN 75 MG CAP PO SCH ×2 (07:36→20:18)
[2018-09-03] MEDS: SERTRALINE 25 MG TAB PO SCH (07:37)
[2018-09-03] MEDS: PIOGLITAZONE 30 MG TAB PO SCH (07:37)
[2018-09-03] MEDS: FERROUS SULFATE 325 MG TAB PO SCH (07:37)
[2018-09-03] MEDS: FLUOROMETHOLONE 0.1% OPHTH DROPS 5 ML BTL RIGHT EYE SCH (07:38)
[2018-09-03] MEDS: ALBUTEROL NEBULIZED 2.5 MG/3 ML INHALATION SCH ×4 (08:26→20:05)
[2018-09-03 08:30] LABS: Potassium 5.7 mmol/L (3.5-5.1)
[2018-09-03] MEDS ORDERED: FUROSEMIDE 10 MG/ML 4 ML VIAL IV STA (08:46)
[2018-09-03] MEDS ORDERED: OSELTAMIVIR 75 MG CAP PO SCH (09:00)
[2018-09-03] MEDS ORDERED: DARBEPOETIN ALFA 60 MCG/0.3 ML SYRINGE SQ SCH (09:00)
[2018-09-03 11:52] LABS: Glucose,Whole Blood 186 mg/dL (75-99)
[2018-09-03] MEDS: INSULIN ASPART (NovoLOG) 100 UNIT/ML VIAL SQ SCH ×2 (12:42→17:07)
[2018-09-03 16:53] LABS: Glucose,Whole Blood 106 mg/dL (75-99)
[2018-09-03 19:31] LABS: Glucose,Whole Blood 125 mg/dL (75-99)
[2018-09-03] MEDS: WARFARIN 3 MG TAB PO SCH (20:18)
[2018-09-03] MEDS: LATANOPROST 0.005% OPHTH DROPS 2.5 ML BTL BOTH EYES SCH (20:18)
[2018-09-03] MEDS: OSELTAMIVIR 60 MG/10 ML ORAL SYRINGE PO SCH (20:19)
--- NOTE | 2018-09-03 22:57 | PN ---
PROGRESS NOTE The patient is seen for followup for chronic kidney disease, NKF stage IV. The patient was admitted with influenza A. This morning she was comfortable. She had audible wheezing, not in any acute distress. PHYSICAL EXAMINATION: Blood pressure was 128/67, heart rate 80 per minute. Patient is afebrile. Examination of the heart S1, S2. Examination lungs bilateral breath sounds are heard. Abdomen is soft, obese. Examination lower extremities shows edema 2+ bilaterally. [employer] exam is grossly intact. LAB: Show sodium 140, potassium 5.7, chloride 108, BUN 94, serum creatinine 1.8. ASSESSMENT: 1. Chronic kidney disease stage IV secondary to nephrosclerosis. Serum creatinine is lower from her usual baseline. This could be related to some degree of volume overload. 2. Influenza A, maintained on Tamiflu. 3. Lower extremity edema, most of which is chronic. There is underlying volume overload. 4. Mild hyperkalemia associated with chronic kidney disease. The blood sugar is not elevated. Expect improvement with loop diuretics. PLAN: Lasix IV x1. Maintain patient on low-potassium diet. Repeat labs in a.m. Will also resume her home dose of diuretics. The patient is encouraged to increase her oral intake. MMODL / IJN: [id number] /
--- NOTE | 2018-09-04 00:52 | PN ---
PROGRESS NOTE DATE OF SERVICE: 09/03/2018. PRESENTING COMPLAINT: Short of breath. INTERVAL HISTORY: Patient admitted with influenza A and pneumonitis and secondary bronchospasm. Symptoms are better. Breathing is better. Renal failure, being followed by Nephrology. Sister at the bedside. Eating better. Looks more comfortable. REVIEW OF SYSTEMS: Done for constitutional, cardiovascular, GI, pulmonary; relevant findings as above. CURRENT MEDICATIONS: Reviewed, that include bronchodilator, Mucinex, Tamiflu. PHYSICAL EXAMINATION: Temperature 98.9, pulse 73, respirations 16, blood pressure 150/75, pulse ox 96% on room air. GENERAL APPEARANCE: Looks more restful, less tired. EYES: Pupils equal. Conjunctivae normal. NECK: JVD unable to assess. Mass not palpable. RESPIRATORY: Effort increased. LUNGS: Decreased breath sounds. Less crackles. CARDIOVASCULAR: First and second sounds normal. Minimal edema. ABDOMEN: Soft, nontender. Liver and spleen not palpable. NEUROLOGICAL: Weak on the right side. Speech is slow at baseline. Does answer questions. INVESTIGATIONS: INR 2.5. Potassium 5.4, BUN 94, creatinine 1.88. ASSESSMENT: 1. Acute influenza pneumonitis resulting in secondary bronchospasm with clinical response. 2. Chronic kidney stage 4 from nephrosclerosis. 3. Coronary artery disease. 4. 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 5. Diabetes mellitus type 2. 6. Gastroesophageal reflux disease. 7. Essential hypertension. 8. Medical debility at baseline uses a Fany lift. 9. Morbid obesity BMI 55.4. 10.Anxiety and depression, not otherwise specified. 11.Coumadin monitoring. 12.Acute kidney injury probably due to secondary infection. 13.Hyperkalemia from renal failure. PLAN: Care was discussed with sister at the bedside. From an influenza standpoint, the patient is doing much better. Renal function has actually started to come down. Hopefully better by tomorrow. The patient was started on Demadex starting tomorrow. MMODL / IJN: [id number] /
[2018-09-04] MEDS: PANTOPRAZOLE 40 MG TABLET PO SCH ×2 (05:20→17:15)
[2018-09-04] MEDS: TIMOLOL 0.5% OPHTH DROPS 5 ML BTL BOTH EYES SCH ×2 (05:20→17:17)
[2018-09-04] MEDS: DORZOLAMIDE HCL 2% DROPS 10 ML BTL BOTH EYES SCH ×2 (05:20→21:14)
[2018-09-04 06:58] LABS: Glucose,Whole Blood 128 mg/dL (75-99)
[2018-09-04] MEDS: PREGABALIN 75 MG CAP PO SCH ×2 (07:49→21:11)
[2018-09-04] MEDS: ALLOPURINOL 100 MG TAB PO SCH (07:49)
[2018-09-04] MEDS: ATORVASTATIN 10 MG TAB PO SCH (07:49)
[2018-09-04] MEDS: INSULIN DETEMIR (LEVEMIR) 100 UNIT/ML SYR SQ SCH (07:49)
[2018-09-04] MEDS: FERROUS SULFATE 325 MG TAB PO SCH (07:49)
[2018-09-04] MEDS: ASPIRIN 81 MG PO SCH (07:50)
[2018-09-04] MEDS: OSELTAMIVIR 60 MG/10 ML ORAL SYRINGE PO SCH ×2 (07:50→21:13)
[2018-09-04] MEDS: SERTRALINE 50 MG TAB PO SCH (07:50)
[2018-09-04] MEDS: guaiFENesin 600 MG TABLET.ER PO SCH ×2 (07:50→21:12)
[2018-09-04] MEDS: SERTRALINE 25 MG TAB PO SCH (07:51)
[2018-09-04] MEDS: TORSEMIDE 20 MG TAB PO SCH (07:51)
[2018-09-04] MEDS: FLUOROMETHOLONE 0.1% OPHTH DROPS 5 ML BTL RIGHT EYE SCH (07:51)
[2018-09-04] MEDS: PIOGLITAZONE 30 MG TAB PO SCH (07:51)
[2018-09-04] MEDS: ALBUTEROL NEBULIZED 2.5 MG/3 ML INHALATION SCH ×4 (09:27→20:53)
--- NOTE | 2018-09-04 09:35 | P.PN ---
Subjective Patient is seen in follow-up for acute kidney injury on chronic kidney disease. Patient has chronic kidney disease stage IV secondary to nephrosclerosis. GFR is at baseline. No vomiting or diarrhea. Oral intake is fair. Remains off IV fluids and diuretics at this time. Vital signs are stable. General: The patient appeared well nourished and normally developed. HEENT: Head exam is unremarkable. Neck is without jugular venous distension. LUNGS: Breath sounds decreased. HEART: Rate and Rhythm are regular. First and second heart sounds normal. No murmurs, rubs or gallops. ABDOMEN: Abdominal exam reveals normal bowel sounds. Non-tender and non- distended. No evidence of peritonitis. EXTREMITITES: No clubbing, cyanosis, or edema. Objective - Vital Signs Vital signs: Vital Signs Temp 98.6 F 09/04/18 06:46 Pulse 68 09/04/18 09:27 Resp 20 09/04/18 00:25 BP 146/74 09/04/18 06:46 Pulse Ox 99 09/04/18 06:46 Intake & Output 09/03/18 09/04/18 09/04/18 18:59 06:59 18:59 Intake Total 1100 100 Output Total 350 800 Balance 750 -700 Weight 139.5 kg Intake: Oral 1100 100 Output: Urine 350 800 Other: Voiding Method Incontinent Incontinent # Bowel Movements 1 - Labs CBC & Chem 7: 09/01/18 07:17 09/03/18 18:07 Labs: Abnormal Lab Results - Last 24 Hours (Table) 09/03/18 09/03/18 09/03/18 Range/Units 11:51 16:42 18:07 Potassium 5.4 H (3.5-5.1) mmol/L POC Glucose (mg/dL) 186 H 106 H (75-99) mg/dL 09/03/18 09/04/18 Range/Units 19:19 06:47 Potassium (3.5-5.1) mmol/L POC Glucose (mg/dL) 125 H 128 H (75-99) mg/dL Assessment and Plan Plan: Assessment: 1. Acute kidney injury mostly prerenal secondary to infection improved with IV hydration. Creatinine 1.88 as of yesterday. 2. Chronic kidney disease stage IV secondary to nephrosclerosis. GFR at baseline. 3. Influenza A virus s/p Tamiflu. 4. Insulin-dependent diabetes mellitus. 5. Anemia of chronic kidney disease. Maintained on Aranesp. 6. Hypertension with chronic kidney disease. Controlled. 7. Chronic lower extremity edema status post IV Lasix yesterday. Plan: Hold off on diuretics for now. Encourage oral intake. Follow-up morning labs.
[2018-09-04 09:46] LABS: Prothrombin Time 28.9 sec (9.0-12.0)
[2018-09-04 10:14] LABS: Calcium 8.8 mg/dL (8.4-10.2); Potassium 4.8 mmol/L (3.5-5.1)
[2018-09-04 11:32] LABS: Glucose,Whole Blood 207 mg/dL (75-99)
[2018-09-04] MEDS: INSULIN ASPART (NovoLOG) 100 UNIT/ML VIAL SQ SCH ×2 (11:44→17:15)
[2018-09-04 14:16] LABS: Hemoglobin A1C 7.1 % (4.0-6.0)
[2018-09-04 16:55] LABS: Glucose,Whole Blood 156 mg/dL (75-99)
--- NOTE | 2018-09-04 17:53 | PN ---
PROGRESS NOTE DATE OF SERVICE: 09/04/2018. PRESENTING COMPLAINT: Short of breath. INTERVAL HISTORY: Patient presented with influenza and pneumonitis, secondary bronchospasm and renal failure. Breathing is better. Tolerating a diet more. Sister at the bedside. The patient feels more comfortable. REVIEW OF SYSTEMS: Attempted for constitutional, cardiovascular, GI, pulmonary; relevant findings as above. CURRENT MEDICATIONS: Current medications are reviewed that include Tamiflu. PHYSICAL EXAMINATION: On examination, temperature 98.6, pulse 77, respiration 16, blood pressure 105/55, pulse ox 93%. GENERAL APPEARANCE: Lying in bed, awake. EYES: Pupils equal. Conjunctivae normal. NECK: JVD not raised. Mass not palpable. RESPIRATORY: Effort increased. LUNGS: Diminished breath sounds, minimal crackles. CARDIOVASCULAR: First and second sounds normal. Some edema. ABDOMEN: Soft, nontender. Liver and spleen not palpable. PSYCHIATRY: Patient is able to answer simple questions. INVESTIGATIONS: INR is 3. BUN 85, creatinine 1.80. ASSESSMENT: 1. Acute influenza pneumonitis resulting in secondary bronchospasm with clinical response. 2. Chronic kidney disease stage 4 from nephrosclerosis. 3. Coronary artery disease. 4. 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 5. Diabetes mellitus type 2. 6. Gastroesophageal reflux disease. 7. Essential hypertension. 8. Medical debility at baseline uses a Fany lift. 9. Morbid obesity, body mass index 55.4. 10.Anxiety and depression, not otherwise specified. 11.Coumadin monitoring. 12.Acute kidney injury, possibly acute tubular necrosis secondary to infection. 13.Hyperkalemia from renal failure. PLAN: Patient is improving. Kidney function is gradually coming down. The patient looking to go to the [facility] probably on Thursday. MMODL / IJN: [id number] /
[2018-09-04] MEDS ORDERED: WARFARIN 0.5 MG TAB PO ONE (20:00)
[2018-09-04 21:10] LABS: Glucose,Whole Blood 181 mg/dL (75-99)
[2018-09-04] MEDS: LATANOPROST 0.005% OPHTH DROPS 2.5 ML BTL BOTH EYES SCH (21:15)
[2018-09-05] MEDS: PANTOPRAZOLE 40 MG TABLET PO SCH ×2 (05:26→17:18)
[2018-09-05] MEDS: DORZOLAMIDE HCL 2% DROPS 10 ML BTL BOTH EYES SCH ×2 (05:26→20:25)
[2018-09-05] MEDS: TIMOLOL 0.5% OPHTH DROPS 5 ML BTL BOTH EYES SCH ×2 (05:26→17:18)
[2018-09-05 06:56] LABS: Glucose,Whole Blood 160 mg/dL (75-99)
[2018-09-05] MEDS: guaiFENesin 600 MG TABLET.ER PO SCH ×2 (08:11→20:25)
[2018-09-05] MEDS: ATORVASTATIN 10 MG TAB PO SCH (08:11)
[2018-09-05] MEDS: PREGABALIN 75 MG CAP PO SCH ×2 (08:11→20:24)
[2018-09-05] MEDS: ALLOPURINOL 100 MG TAB PO SCH (08:11)
[2018-09-05] MEDS: INSULIN DETEMIR (LEVEMIR) 100 UNIT/ML SYR SQ SCH (08:11)
[2018-09-05] MEDS: FERROUS SULFATE 325 MG TAB PO SCH (08:11)
[2018-09-05] MEDS: SERTRALINE 50 MG TAB PO SCH (08:11)
[2018-09-05] MEDS: ASPIRIN 81 MG PO SCH (08:11)
[2018-09-05] MEDS: OSELTAMIVIR 60 MG/10 ML ORAL SYRINGE PO SCH ×2 (08:12→20:30)
[2018-09-05] MEDS: SERTRALINE 25 MG TAB PO SCH (08:12)
[2018-09-05] MEDS: FLUOROMETHOLONE 0.1% OPHTH DROPS 5 ML BTL RIGHT EYE SCH (08:12)
[2018-09-05] MEDS: PIOGLITAZONE 30 MG TAB PO SCH (08:12)
[2018-09-05] MEDS: TORSEMIDE 20 MG TAB PO SCH (08:13)
[2018-09-05 08:43] LABS: Prothrombin Time 28.5 sec (9.0-12.0)
[2018-09-05 08:52] LABS: Calcium 8.8 mg/dL (8.4-10.2); Magnesium 1.8 mg/dL (1.6-2.3); Potassium 5.1 mmol/L (3.5-5.1)
--- NOTE | 2018-09-05 10:26 | P.PN ---
Subjective Patient is seen in follow-up for acute kidney injury on chronic kidney disease. Patient has chronic kidney disease stage IV secondary to nephrosclerosis. GFR is at baseline. No vomiting or diarrhea. Oral intake is fair. Maintained on torsemide 20 mg daily. Denies chest pain or shortness of breath. Vital signs are stable. General: The patient appeared well nourished and normally developed. HEENT: Head exam is unremarkable. Neck is without jugular venous distension. LUNGS: Breath sounds decreased. HEART: Rate and Rhythm are regular. First and second heart sounds normal. No murmurs, rubs or gallops. ABDOMEN: Abdominal exam reveals normal bowel sounds. Non-tender and non- distended. No evidence of peritonitis. EXTREMITITES: Trace edema. Objective - Vital Signs Vital signs: Vital Signs Temp 98.7 F 09/05/18 06:45 Pulse 66 09/05/18 06:45 Resp 18 09/05/18 00:00 BP 143/64 09/05/18 06:45 Pulse Ox 95 09/05/18 06:45 Intake & Output 09/04/18 09/05/18 09/05/18 17:59 06:59 18:59 Intake Total Output Total Balance Weight Intake: Oral Output: Urine Other: Voiding Method # Voids # Bowel Movements - Labs CBC & Chem 7: 09/01/18 07:17 09/05/18 08:08 Labs: Abnormal Lab Results - Last 24 Hours (Table) 09/01/18 09/04/18 09/04/18 Range/Units 07:17 08:50 08:50 PT 28.9 H (9.0-12.0) sec INR 3.0 H (<1.2) BUN 85 H (7-17) mg/dL Creatinine 1.80 H (0.52-1.04) mg/dL Glucose 175 H (74-99) mg/dL POC Glucose (mg/dL) (75-99) mg/dL Hemoglobin A1c 7.1 H (4.0-6.0) % 09/04/18 09/04/18 09/04/18 Range/Units 11:21 16:41 20:56 PT (9.0-12.0) sec INR (<1.2) BUN (7-17) mg/dL Creatinine (0.52-1.04) mg/dL Glucose (74-99) mg/dL POC Glucose (mg/dL) 207 H 156 H 181 H (75-99) mg/dL Hemoglobin A1c (4.0-6.0) % 09/05/18 09/05/18 09/05/18 Range/Units 06:45 08:08 08:08 PT 28.5 H (9.0-12.0) sec INR 3.0 H (<1.2) BUN 83 H (7-17) mg/dL Creatinine 2.04 H (0.52-1.04) mg/dL Glucose 149 H (74-99) mg/dL POC Glucose (mg/dL) 160 H (75-99) mg/dL Hemoglobin A1c (4.0-6.0) % Assessment and Plan Plan: Assessment: 1. Acute kidney injury mostly prerenal secondary to infection improved with IV hydration. Creatinine 2.04 today. 2. Chronic kidney disease stage IV secondary to nephrosclerosis. GFR at baseline. 3. Influenza A virus s/p Tamiflu. 4. Insulin-dependent diabetes mellitus. 5. Anemia of chronic kidney disease. Maintained on Aranesp. 6. Hypertension with chronic kidney disease. Controlled. 7. Chronic lower extremity edema maintained on torsemide. Plan: Continue torsemide 20 mg daily. Repeat electrolytes in the morning. Encourage oral intake.
[2018-09-05 11:21] LABS: Glucose,Whole Blood 241 mg/dL (75-99)
[2018-09-05] MEDS: ALBUTEROL NEBULIZED 2.5 MG/3 ML INHALATION SCH ×4 (11:54→19:46)
[2018-09-05] MEDS: INSULIN ASPART (NovoLOG) 100 UNIT/ML VIAL SQ SCH ×2 (11:58→17:19)
[2018-09-05 16:29] LABS: Glucose,Whole Blood 194 mg/dL (75-99)
--- NOTE | 2018-09-05 18:08 | PN ---
PROGRESS NOTE DATE OF SERVICE: September 05, 2018. PRESENTING COMPLAINT: Short of breath. INTERVAL HISTORY: Patient presented with influenza pneumonitis secondary bronchospasm and renal failure. Doing much better, read a newspaper. Family at the bedside. Tolerating a diet. REVIEW OF SYSTEMS: Done for constitutional, cardiovascular, GI, pulmonary; relevant findings as above. CURRENT MEDICATIONS: Reviewed. PHYSICAL EXAMINATION: VITAL SIGNS: Temperature 97.7, pulse 64, respiration 20, blood pressure 115/63, pulse ox 99% on 2 L. GENERAL APPEARANCE: Lying in bed, awake. EYES: Pupils are equal. Conjunctivae normal. NECK: JVD unable to assess. Mass not palpable. RESPIRATORY: Effort increased. LUNGS: Diminished breath sounds, minimal crackles. CARDIOVASCULAR: 1st and 2nd sounds normal. Minimal edema. ABDOMEN: Soft, nontender. Liver and spleen not palpable. PSYCHIATRY: Awake, answering simple questions. INVESTIGATIONS: Potassium 5.1, BUN 83, creatinine 2.04. Accu-Cheks are noted. ASSESSMENT: 1. Acute influenza A pneumonitis resulting in secondary bronchospasm with clinical improvement. 2. Chronic kidney disease stage 4 from nephrosclerosis. 3. Coronary artery disease. 4. 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 5. Diabetes mellitus type 2. 6. Gastroesophageal reflux disease. 7. Essential hypertension. 8. Medical debility at baseline uses a Fany lift. 9. Morbid obesity BMI 55.4. 10.Anxiety and depression, not otherwise specified. 11.Coumadin monitoring. 12.Acute kidney injury, possible acute tubular necrosis secondary to infection. 13.Hyperkalemia from renal failure improved. PLAN: Continue current medication and treatment plan. The patient was seen by Dr. Costa from Nephrology. The patient remains on antiemetics. Should be able to be discharged back to the [facility] tomorrow. MMODL / IJN: [id number] /
[2018-09-05] MEDS ORDERED: WARFARIN 1 MG TAB PO ONE (20:00)
[2018-09-05 20:09] LABS: Glucose,Whole Blood 162 mg/dL (75-99)
[2018-09-05] MEDS: LATANOPROST 0.005% OPHTH DROPS 2.5 ML BTL BOTH EYES SCH (20:25)
[2018-09-06] MEDS: PANTOPRAZOLE 40 MG TABLET PO SCH ×2 (06:05→17:35)
[2018-09-06] MEDS: DORZOLAMIDE HCL 2% DROPS 10 ML BTL BOTH EYES SCH ×2 (06:05→20:41)
[2018-09-06] MEDS: TIMOLOL 0.5% OPHTH DROPS 5 ML BTL BOTH EYES SCH ×2 (06:05→17:36)
[2018-09-06 07:08] LABS: Glucose,Whole Blood 175 mg/dL (75-99)
[2018-09-06 08:23] LABS: Calcium 8.7 mg/dL (8.4-10.2); Magnesium 1.8 mg/dL (1.6-2.3); Potassium 5.1 mmol/L (3.5-5.1)
[2018-09-06 08:32] LABS: INR 2.5 (<1.2); Prothrombin Time 24.5 sec (9.0-12.0)
[2018-09-06] MEDS: ATORVASTATIN 10 MG TAB PO SCH (08:33)
[2018-09-06] MEDS: INSULIN DETEMIR (LEVEMIR) 100 UNIT/ML SYR SQ SCH (08:33)
[2018-09-06] MEDS: PREGABALIN 75 MG CAP PO SCH ×2 (08:33→18:12)
[2018-09-06] MEDS: ALLOPURINOL 100 MG TAB PO SCH (08:34)
[2018-09-06] MEDS: SERTRALINE 50 MG TAB PO SCH (08:34)
[2018-09-06] MEDS: ASPIRIN 81 MG PO SCH (08:34)
[2018-09-06] MEDS: SERTRALINE 25 MG TAB PO SCH (08:34)
[2018-09-06] MEDS: PIOGLITAZONE 30 MG TAB PO SCH (08:34)
[2018-09-06] MEDS: FERROUS SULFATE 325 MG TAB PO SCH (08:34)
[2018-09-06] MEDS: TORSEMIDE 20 MG TAB PO SCH (08:34)
[2018-09-06] MEDS: FLUOROMETHOLONE 0.1% OPHTH DROPS 5 ML BTL RIGHT EYE SCH (08:35)
[2018-09-06] MEDS: guaiFENesin 600 MG TABLET.ER PO SCH ×2 (08:39→20:40)
[2018-09-06] MEDS: ALBUTEROL NEBULIZED 2.5 MG/3 ML INHALATION SCH ×4 (08:55→20:33)
[2018-09-06 11:45] LABS: Glucose,Whole Blood 239 mg/dL (75-99)
[2018-09-06] MEDS: INSULIN ASPART (NovoLOG) 100 UNIT/ML VIAL SQ SCH ×2 (12:44→17:35)
[2018-09-06 15:39] VITALS: BMI 46.9
--- NOTE | 2018-09-06 15:54 | PN ---
PROGRESS NOTE Patient is seen for followup for chronic kidney disease. She was admitted with influenza A. Patient is slowly improving. She has been eating. Blood pressure this morning was 132/73, heart rate of 67 per minute. Patient is afebrile. EXAMINATION OF THE HEART: S1 and S2. EXAMINATION OF LUNGS: Bilateral breath sounds are heard. Wheezing is heard bilaterally. Examination of lower extremities shows edema 1+ bilaterally, chronic skin changes. ABDOMEN: Soft, obese. Labs show sodium 138, potassium 5.1, BUN 78, serum creatinine 2.07. ASSESSMENT: 1. Chronic kidney disease, NKF stage IV, secondary to nephrosclerosis. 2. Influenza A. 3. Mild volume overload, maintained on oral Demadex. Weight has decreased. I will continue with the current dose for now. 4. Type 2 diabetes. 5. Obesity. 6. Anemia of chronic disease, maintained on Aranesp. PLAN: Continue with the current dose of Demadex. Patient will follow up as outpatient. We may increase the Demadex to 40 mg, depending upon her volume status and labs in a.m. MMODL / IJN: [id number] /
--- NOTE | 2018-09-06 16:45 | DS ---
DISCHARGE SUMMARY DATE OF ADMISSION: 08/30/2018 DATE OF DISCHARGE: 09/06/2018 FINAL DIAGNOSES: 1. Acute influenza A pneumonitis resulting in secondary bronchospasm, POA. 2. Chronic kidney disease, stage IV, from nephrosclerosis. 3. Coronary artery disease. 4. 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 5. Diabetes mellitus, type 2. 6. Gastroesophageal reflux disease. 7. Essential hypertension. 8. Medical debility at baseline. Uses a Fany lift. 9. Morbid obesity; body mass index 55.4. 10.Anxiety and depression not otherwise specified. 11.Coumadin monitoring. 12.Acute kidney injury, possibly acute tubular necrosis secondary to infection. 13.Hyperkalemia from renal failure, improved. CONSULTATION: Dr. Knutson/Dr. Costa from Nephrology. HOSPITAL COURSE: This pleasant lady with medical debility presented with acute pneumonitis from influenza A with bronchospasm; doing much better at the time of discharge. Patient was in acute renal failure. Creatinine was up to 2.47. It did come down to 1.80. INR is 2.5. The patient still has some respiratory rattling in the chest but much better, tolerating a diet. The patient will need oxygen for some time. Pulse ox is dropping to 87%. Care was discussed with the patient's sister at length today. Questions were answered. Patient is tolerating a diet. Discussion and discharge planning more than 35 minutes. On examination, temperature 98.3, pulse 67, respiration 16, blood pressure 132/73, pulse ox 87% on room air. LUNGS: Occasional crackles, fair entry. Patient is able answer simple questions. Patient has chronic weakness on the right side. Speech is slow at baseline. DISCHARGE MEDICATIONS: 1. Allopurinol 200 mg a day. 2. Aspirin 81 mg a day. 3. Lipitor 10 mg a day. 4. Vitamin D2 one tablet p.o. every month. 5. Tylenol 1000 mg q.8 p.r.n. 6. Colace 100 mg p.o. daily p.r.n. 7. Trusopt 2% one drop to both eyes b.i.d. 8. Epogen 20,000 units subcutaneously every 7 days. 9. Iron 325 p.o. daily. 10.Fluorometholone 0.1% one drop to right eye daily. 11.NovoLog 10 units subcutaneously at 5 p.m., 15 units subcutaneously daily at 12 noon. 12.Insulin Lantus 45 units subcutaneously daily in the morning. 13.Latanoprost 0.005% one drop to both eyes daily at 8 p.m. 14.Milk of Magnesia 2400 mg daily p.r.n. 15.Fleet Adult 133 mL q.72 hours p.r.n. 16.Nitrostat 0.4 sublingually as directed. 17.Omeprazole 20 mg b.i.d. 18.Zofran 4 mg q.4 p.r.n. 19.Actos 30 mg p.o. daily. 20.Zoloft 75 mg daily. 21.Timoptic 0.5% one drop to both eyes b.i.d. 22.Coumadin 5 mg p.o. at bedtime. 23.Xanax 0.25 p.o. daily p.r.n. 24.Ventolin 2.5 t.i.d. 25.Lyrica 75 mg b.i.d. 26.Demadex 20 mg p.o. daily. 27.Mucinex 1200 mg p.o. q.12. DISPOSITION: [facility]. Follow up with Dr. Mina Lopez. Labs CBC, BMP in 3 to 5 days. Oxygen 2 L to be re-evaluated in a few days. Follow up with Dr. Costa in 2 weeks. Discussion and discharge planning more than 35 minutes. MMODL / VITORN: [id number] /
[2018-09-06 17:00] LABS: Glucose,Whole Blood 231 mg/dL (75-99)
[2018-09-06] MEDS ORDERED: WARFARIN 3 MG TAB PO SCH (18:00)
[2018-09-06 19:57] LABS: Glucose,Whole Blood 231 mg/dL (75-99)
[2018-09-06] MEDS: LATANOPROST 0.005% OPHTH DROPS 2.5 ML BTL BOTH EYES SCH (20:41)
[2018-09-07] MEDS: TIMOLOL 0.5% OPHTH DROPS 5 ML BTL BOTH EYES SCH (05:40)
[2018-09-07] MEDS: DORZOLAMIDE HCL 2% DROPS 10 ML BTL BOTH EYES SCH (05:41)
[2018-09-07] MEDS: PANTOPRAZOLE 40 MG TABLET PO SCH (05:47)
[2018-09-07] MEDS: ALBUTEROL NEBULIZED 2.5 MG/3 ML INHALATION SCH (07:14)
[2018-09-07 07:40] LABS: Glucose,Whole Blood 161 mg/dL (75-99)
[2018-09-07 08:20] VITALS: BP 139/71; PULSE 72; RESP 12; TEMP 98.2
[2018-09-07] MEDS: ATORVASTATIN 10 MG TAB PO SCH (08:27)
[2018-09-07] MEDS: ASPIRIN 81 MG PO SCH (08:28)
[2018-09-07] MEDS: ALLOPURINOL 100 MG TAB PO SCH (08:28)
[2018-09-07] MEDS: SERTRALINE 50 MG TAB PO SCH (08:28)
[2018-09-07] MEDS: guaiFENesin 600 MG TABLET.ER PO SCH (08:28)
[2018-09-07] MEDS: FERROUS SULFATE 325 MG TAB PO SCH (08:28)
[2018-09-07] MEDS: PREGABALIN 75 MG CAP PO SCH (08:28)
[2018-09-07] MEDS: INSULIN DETEMIR (LEVEMIR) 100 UNIT/ML SYR SQ SCH (08:29)
[2018-09-07] MEDS: FLUOROMETHOLONE 0.1% OPHTH DROPS 5 ML BTL RIGHT EYE SCH (08:35)
[2018-09-07] MEDS: SERTRALINE 25 MG TAB PO SCH (08:36)
[2018-09-07] MEDS: PIOGLITAZONE 30 MG TAB PO SCH (08:36)
[2018-09-07] MEDS: TORSEMIDE 20 MG TAB PO SCH (08:36)
[2018-09-07 08:37] LABS: INR 3.1 (<1.2); Prothrombin Time 29.9 sec (9.0-12.0)
[2018-09-07] MEDS ORDERED: WARFARIN 2.5 MG TAB PO ONE (18:00)
[2018-09-30] MEDS ORDERED: ERGOCALCIFEROL 50,000 UNIT CAP PO SCH (09:00)
== END 2018-09-07 10:11 | DRG 193 ==
LOC: EC 19:18 → 4MS4W 23:17 → 4SSUR 08-31 00:01
PROVIDERS: ADMIT Hospitalist; ATTEND Hospitalist
DX: J10.00 Influenza due to other identified influenza virus with unspecified type of pneumonia (principal); N17.0 Acute kidney failure with tubular necrosis; Z68.42 Body mass index [BMI] 45.0-49.9, adult; I13.0 Hypertensive heart and chronic kidney disease with heart failure and stage 1 through stage 4 chronic kidney disease, or unspecified chronic kidney disease; I69.351 Hemiplegia and hemiparesis following cerebral infarction affecting right dominant side; N18.4 Chronic kidney disease, stage 4 (severe); J98.01 Acute bronchospasm; D63.1 Anemia in chronic kidney disease; E11.22 Type 2 diabetes mellitus with diabetic chronic kidney disease; E66.01 Morbid (severe) obesity due to excess calories; E78.5 Hyperlipidemia, unspecified; E87.5 Hyperkalemia; R62.7 Adult failure to thrive; Z74.01 Bed confinement status; Z99.89 Dependence on other enabling machines and devices; F32.9 Major depressive disorder, single episode, unspecified; F41.9 Anxiety disorder, unspecified; I25.10 Atherosclerotic heart disease of native coronary artery without angina pectoris; I50.9 Heart failure, unspecified; K21.9 Gastro-esophageal reflux disease without esophagitis; Z79.01 Long term (current) use of anticoagulants; Z79.4 Long term (current) use of insulin; Z79.82 Long term (current) use of aspirin; Z79.899 Other long term (current) drug therapy; Z86.711 Personal history of pulmonary embolism; Z86.718 Personal history of other venous thrombosis and embolism; Z88.0 Allergy status to penicillin; Z88.8 Allergy status to other drugs, medicaments and biological substances; Z91.041 Radiographic dye allergy status; Z66 Do not resuscitate; Z88.5 Allergy status to narcotic agent; R25.1 Tremor, unspecified
CPT/HCPCS: 80048; 83036; 83735; 84132; 85025; 85610; 94640; 94760; 99285

== ENCOUNTER 2020-08-06 16:03 | Inpatient (IN) | payer MEDICARE, OTHER ==
[2020-08-06] MEDS ORDERED: SODIUM CHLORIDE 0.9% 1,000 ML IV ONE (20:13)
[2020-08-06] MEDS ORDERED: DOCUSATE 100 MG CAP PO PRN (20:29)
[2020-08-06] MEDS ORDERED: ACETAMINOPHEN TAB 500 MG TAB PO PRN (20:29)
[2020-08-06] MEDS ORDERED: ONDANSETRON 4 MG TAB PO PRN (20:29)
[2020-08-06] MEDS ORDERED: NA PHOS,M-B/NA PHOS,DI-BA 133 ML ENEMA RECTAL PRN (20:29)
[2020-08-06] MEDS ORDERED: ALPRAZolam 0.25 MG TAB PO PRN (20:29)
[2020-08-06] MEDS ORDERED: MAGNESIUM HYDROXIDE 2,400 MG/10 ML CUP PO PRN (20:29)
[2020-08-06] MEDS ORDERED: NITROGLYCERIN SL TABS 0.4 MG TAB SUBLINGUAL SCH (20:30)
--- NOTE | 2020-08-06 20:52 | XR ---
EXAMINATION TYPE: XR chest 1V portable DATE OF EXAM: 08/06/2020 COMPARISON: 08/30/2018. HISTORY: Crackles/shortness of breath. TECHNIQUE: Single frontal view of the chest is obtained. FINDINGS: There is left basilar atelectasis. No focal infiltrate, pleural effusion, or pneumothorax seen. The cardiac silhouette size is within normal limits. The osseous structures are intact. IMPRESSION: No acute cardiopulmonary abnormality.
[2020-08-06] MEDS ORDERED: INSULIN ASPART (NovoLOG) 100 UNIT/ML VIAL SQ SCH (21:00)
[2020-08-06] MEDS ORDERED: guaiFENesin 600 MG TABLET.ER PO SCH (21:00)
[2020-08-06 21:12] LABS: Anisocytosis Slight; Basophils % (A) 0 %; Eosinophils # (A) 0.1 k/uL (0-0.7); Eosinophils % (A) 1 %; HCT 33.4 % (34.0-46.0); HGB 10.3 gm/dL (11.4-16.0); Hypochromasia Slight; Lymphocytes # (A) 1.6 k/uL (1.0-4.8); Lymphocytes % (A) 18 %; MCH 30.8 pg (25.0-35.0); MCHC 30.9 g/dL (31.0-37.0); MCV 99.8 fL (80.0-100.0); Macrocytosis Slight; Mean Platelet Volume 9.8; Monocytes # (A) 0.5 k/uL (0-1.0); Monocytes % (A) 6 %; Neutrophils # (A) 6.2 k/uL (1.3-7.7); Neutrophils % (A) 73 %; Platelet Count 217 k/uL (150-450); RBC 3.35 m/uL (3.80-5.40); RDW 16.8 % (11.5-15.5); WBC 8.5 k/uL (3.8-10.6)
[2020-08-06] MEDS: SODIUM CHLORIDE 0.9% 1,000 ML IV SCH (21:18)
[2020-08-06 21:23] LABS: INR 0.9 (<1.2); Prothrombin Time 10.1 sec (9.0-12.0)
[2020-08-06] MEDS: PANTOPRAZOLE 40 MG/10 ML VIAL IVP SCH (21:26)
[2020-08-06 21:32] LABS: ALT 30 U/L (4-34); AST 32 U/L (14-36); African American GFR (CKD) 26 (>60 ml/min/1.73 sqM); Albumin 2.9 g/dL (3.5-5.0); Alkaline Phosphatase 130 U/L (38-126); Anion Gap 10 mmol/L; Blood Urea Nitrogen 100 mg/dL (7-17); Calcium 9.3 mg/dL (8.4-10.2); Carbon Dioxide 37 mmol/L (22-30); Chloride 90 mmol/L (98-107); Globulin 2.9 g/dL; Glucose 167 mg/dL (74-99); Non-African American GFR(CKD) 22 (>60 ml/min/1.73 sqM); Potassium 3.7 mmol/L (3.5-5.1); Sodium 137 mmol/L (137-145); Total Bilirubin 0.8 mg/dL (0.2-1.3); Total Protein 5.8 g/dL (6.3-8.2)
[2020-08-06 21:50] LABS: Glucose,Whole Blood 165 mg/dL (75-99)
[2020-08-06] MEDS ORDERED: WARFARIN 5 MG TAB PO ONE (22:00)
[2020-08-06] MEDS ORDERED: ALBUTEROL NEBULIZED 2.5 MG/3 ML INHALATION SCH (22:00)
[2020-08-06 22:05] LABS: Appearance,Urine Clear (Clear); Bacteria,Urine Rare /hpf; Bilirubin,Urine Negative (Negative); Blood,Urine Small (Negative); Budding Yeast,Urine Occasional /hpf; Color,Urine Yellow; Glucose,Urine (UA) Negative (Negative); Hyaline Casts,Urine 3 /lpf (0-2); Ketones,Urine Negative (Negative); Leukocyte Esterase,Urine Small (Negative); Mucus,Urine Rare /hpf; Nitrite,Urine Negative (Negative); Protein,Urine Negative (Negative); RBC,Urine 3 /hpf (0-5); Specific Gravity,Urine 1.013 (1.001-1.035); Squamous Epithelial Cell,Urine <1 /hpf (0-4); Urobilinogen,Urine <2.0 mg/dL (<2.0); WBC,Urine 9 /hpf (0-5)
[2020-08-07] MEDS: ACETAMINOPHEN TAB 325 MG TAB PO SCH ×4 (00:16→22:25)
[2020-08-07] MEDS: ONDANSETRON 4 MG TAB PO SCH ×5 (00:17→23:02)
[2020-08-07] MEDS: ALBUTEROL NEBULIZED 2.5 MG/3 ML INHALATION SCH ×5 (02:31→21:39)
--- NOTE | 2020-08-07 03:37 | P.EN ---
A team was called to evaluate patient with hypotension patient from [facility] [place] [facility] reported blood pressures 60/30 enroute. After being moved from stretcher to bed, she was found to have blood pressure of 200/70 , but gradually stabilized. 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 she does not turn her head, and would only track with her eyes. she does not say much but she would answer her name if she is not agitated, and would also answer with yes and no. after evaluating the patient she turns out to be at her baseline as described by the family. blood sugar was 188 gm/dl blood pressure began to stabilize down to 123/78 , HR 91, RR 20, temp 98.5, spO2 97 on 2L NC and not in any distress responds with her name follows simple commands lungs good air entry bilaterally with crackles over left lung anteriorly and posteriorly over mid lung, EMS reports patient has vomited earlier legs bilaterally with erythema and sloughing of skin , surgical dressing in place abd obese limiting exam cardiac normal s1 s2 regular rate and rhythm cellulitis with possible sepsis hypotension history of stroke with right side flaccid paralysis rule out aspiration from vomting earlier plan start 1 L normal saline bolus initiate empiric antibiotics close monitor of vital signs check stat blood work CBC, CMP, lactic acid check CXR 30 minutes were spent in critical care service evaluating, coordinating care for this patient, reviewing records and documentation
[2020-08-07] MEDS ORDERED: DORZOLAMIDE HCL 2% DROPS 10 ML BTL BOTH EYES SCH (05:00)
[2020-08-07 06:10] LABS: Glucose,Whole Blood 164 mg/dL (75-99)
[2020-08-07] MEDS: FLUTICASONE 50MCG/SPRAY NASAL 16GM EA NOSTRIL SCH (06:51)
[2020-08-07] MEDS: DORZOLAMIDE-TIMOLOL 2.23%/0.68 10ML BTL BOTH EYES SCH ×2 (06:52→20:04)
[2020-08-07] MEDS: SODIUM CHLORIDE 0.9% 1,000 ML IV SCH ×2 (06:54→18:05)
[2020-08-07] MEDS ORDERED: SPIRONOLACTONE 25 MG TAB PO SCH (07:00)
[2020-08-07] MEDS ORDERED: TIMOLOL 0.5% OPHTH SOLN (PF) 0.2 ML DROPERETTE BOTH EYES SCH (07:00)
[2020-08-07] MEDS ORDERED: SERTRALINE 50 MG TAB PO SCH (07:00)
[2020-08-07] MEDS ORDERED: SERTRALINE 25 MG TAB PO SCH (07:00)
[2020-08-07] MEDS ORDERED: ASPIRIN 81 MG PO SCH (09:00)
[2020-08-07] MEDS ORDERED: ATORVASTATIN 10 MG TAB PO SCH (09:00)
[2020-08-07] MEDS ORDERED: TIMOLOL 0.5% OPHTH DROPS 5 ML BTL BOTH EYES SCH (09:00)
[2020-08-07] MEDS ORDERED: FERROUS SULFATE 325 MG TAB PO SCH (09:00)
[2020-08-07] MEDS ORDERED: PANTOPRAZOLE 40 MG TABLET PO SCH (09:00)
--- NOTE | 2020-08-07 10:05 | P.HPIM ---
History of Present Illness This is a pleasant 65 years old female with past medical history of coronary artery disease, heart failure, CVA with right hemiparesis, diabetes mellitus, history of deep venous thrombosis and pulmonary embolism on Eliquis, chronic kidney disease, GERD, hypertension.Patient was transferred from [facility]. I reviewed the records from [facility], I couldn't see a note from emergency room physician Dr. Lamas [facility]. Patient looks awake and alert and has good attention span and follows commands, she has dysarthria and a light in answering question which looks chronic. She states that she lives at home when asked is a skilled nursing she states yesterday. She is disoriented to time, place and person. She did not complain from anything when asked however during exam she pointed to her right ankle as hurting and it was tender, there was no signs of cellulitis in the right ankle but there is blackish scar possible ulcer, there was more redness and swelling in the right leg compared to the left side however she denies tenderness or pain On reviewing the records from [facility] showing glucose of 159, CPKs 47, troponin is mildly elevated at 0.04. Urinalysis shows specific gravity less than 1.005. Blood is 2+. No signs of infection Magnesium is normal at 1.6 and phosphorus normal at 3.2, pro-, calcitonin is elevated at 0.5 lactic acid is normal at 1.9 WBC slightly elevated at 10.9 K with reference range 4.0-10.5. Hemoglobin is 10.2, platelet is normal at 180 7K. BMP showing normal sodium at 133 and potassium 4.2. Creatinine is elevated at 2.0 AST is normal at 42 and ALT normal at 30. Total bilirubin is normal at 0.6. Chest x-ray: Showing cardiomegaly and low lung volumes without acute pulmonary process CT of the abdomen and pelvis without contrast reported: No bowel obstruction. No acute findings added to find on noncontrast study per report EKG showing normal sinus rhythm at 82 with QTC [address]-T changes on EKG Currently her vitals are stable, afebrile. Labs showing no leukocytosis with WBC is 8.5. Hemoglobin is 10.3 which is at baseline. INR is 0.9. Sodium 1 potassium are within the reference range. Creatinine at baseline at 2.2. Gl ucose control. Liver enzymes AST and ALT are not elevated. Urine analysis is suspicious for infection with small leukocyte esterase Patient was transferred to [address] [place] [address] for hypotension, A team was called and patient received IV fluids and antibiotic. She received 1 L of normal saline and placed on 100 mL per hour She was started on ceftriaxone Also patient was noted to be ALLERGIC to penicillin, sulfa, codeine and IV dye Review of Systems CONSTITUTIONAL: No fever, no malaise, no fatigue. HEENT: No recent visual problems or hearing problems. Denied any sore throat. CARDIOVASCULAR: No orthopnea, PND, no palpitations, no syncope. PULMONARY: No shortness of breath, no cough, no hemoptysis. GASTROINTESTINAL: No diarrhea, no nausea, no vomiting, no abdominal pain. Normoactive bowel sounds. NEUROLOGICAL: No headaches, no numbness. HEMATOLOGICAL: Denies any bleeding or petechiae. GENITOURINARY: Denies any burning micturition, frequency, or urgency. MUSCULOSKELETAL/RHEUMATOLOGICAL: Denies any joint pain, swelling, or any muscle pain. ENDOCRINE: Denies any polyuria or polydipsia. Past Medical History Past Medical History: Coronary Artery Disease (CAD), Heart Failure, CVA/TIA, Diabetes Mellitus, Deep Vein Thrombosis (DVT), GERD/Reflux, Hypertension, Pulmonary Embolus (PE), Renal Disease Additional Past Medical History / Comment(s): tremmors, right sided weakness from CVA. Immobile uses hiral lift at [facility]. History of Any Multi-Drug Resistant Organisms: None Reported Past Surgical History: Tonsillectomy Additional Past Surgical History / Comment(s): G tube, pressure pump right eye Past Anesthesia/Blood Transfusion Reactions: No Reported Reaction Past Psychological History: Anxiety, Depression Smoking Status: Never smoker Past Alcohol Use History: None Reported Past Drug Use History: None Reported - Past Family History Father History Unknown: Yes Family Medical History: No Reported History, Unable to Obtain Mother History Unknown: Yes Family Medical History: No Reported History, Unable to Obtain Medications and Allergies Home Medications Medication Instructions Recorded Confirmed Type allopurinoL [Zyloprim] 200 mg PO DAILY@0700 07/24/17 08/06/20 History Fluorometholone 0.1% Ophth Juanita 1 drop RIGHT EYE DAILY@1200 08/30/18 08/06/20 History [Fml] Insulin Glargine [Lantus] 45 unit SQ DAILY@209908/30/18 08/06/20 History Latanoprost/Pf [Latanoprost 0.005% 1 drop BOTH EYES DAILY@199908/30/18 08/06/20 History Eye Drop] Magnesium Hydroxide [Milk of 2,400 mg PO Q48H PRN 08/30/18 08/06/20 History Magnesia] Nitroglycerin Sl Tabs [Nitrostat] 0.4 mg SL Q5M PRN 08/30/18 08/06/20 History Omeprazole 20 mg PO DAILY@0708/30/18 08/06/20 History Ondansetron HCl [Zofran] 4 mg PO Q6H 08/30/18 08/06/20 History Pioglitazone [Actos] 30 mg PO DAILY@0708/30/18 08/06/20 History Torsemide [Demadex] 20 mg PO DAILY@0700 #0 09/06/18 08/06/20 Rx ALPRAZolam [Xanax] 0.25 mg PO BID@0700,1900 08/06/20 08/06/20 History Acetaminophen Tab [Tylenol] 650 mg PO Q8H 08/06/20 08/06/20 History Albuterol Nebulized [Ventolin 2.5 mg INHALATION RT-Q6H 08/06/20 08/06/20 History Nebulized] Apixaban [Eliquis] 2.5 mg PO BID@0700,1700 08/06/20 08/06/20 History Atropine Ophth Soln 1% 5Ml [Isopto 2 drops SUBLINGUAL Q2H PRN 08/06/20 08/06/20 History Atropine 1% 5Ml] Bisacodyl 10 mg PO Q72H PRN 08/06/20 08/06/20 History Dorzolamide/Timolol/Pf [Cosopt Pf 1 drop BOTH EYES BID@00,209908/06/20 08/06/20 History 2%/5% Ophth Droperette] Doxycycline Hyclate 100 mg PO BID@0700,1900 08/06/20 08/06/20 History Fluticasone Nasal [place] [Flonase 1 spr EA NOSTRIL DAILY@0708/06/20 08/06/20 History Nasal [place]] Liquical 30 ml PO BID@0900,1700 08/06/20 08/06/20 History Loratadine 10 mg PO DAILY@0700 08/06/20 08/06/20 History Melatonin 5 mg PO HS@2100 08/06/20 08/06/20 History Menthol [[place]] 7.5 mg MM Q2H PRN 08/06/20 08/06/20 History Ocusoft Eyelid Cleansin Pad 1 applic BOTH EYES Q48H 08/06/20 08/06/20 History Potassium Chloride 10 meq PO DAILY@1200 08/06/20 08/06/20 History Pregabalin [Lyrica] 75 mg PO BID@0700,2000 08/06/20 08/06/20 History Sertraline HCl [Zoloft] 100 mg PO DAILY@0700 08/06/20 08/06/20 History Sodium Chloride [Saline Mist] 1 spray EA NOSTRIL Q2H PRN 08/06/20 08/06/20 History Spironolactone [Aldactone] 25 mg PO DAILY@0700 08/06/20 08/06/20 History bisacodyL [Bisacodyl] 10 mg RECTAL Q72H PRN 08/06/20 08/06/20 History guaiFENesin [Diabetic Tussin Ex] 200 mg PO Q4H PRN 08/06/20 08/06/20 History metOLazone [Zaroxolyn] 5 mg PO MOWEFR@0700 08/06/20 08/06/20 History traMADol HCL 50 mg PO Q6H PRN 08/06/20 08/06/20 History Allergies Allergy/AdvReac Type Severity Reaction Status Date / Time Iodinated Contrast Media Allergy Rash/Hives Verified 08/06/20 21:40 iodine Allergy Unknown Verified 08/06/20 21:40 Iodine and Iodide Containing Allergy Rash/Hives Verified 08/06/20 21:40 Produc Penicillins Allergy Rash/Hives Verified 08/06/20 21:40 tuberculin,PPD,multi-puncture Allergy Unknown Verified 08/06/20 21:40 warfarin Allergy Unknown Verified 08/06/20 21:40 codeine AdvReac Itching Verified 08/06/20 21:40 muscle rub Allergy Unknown Uncoded 08/06/20 21:40 Physical Exam Vitals: Vital Signs Temp Pulse Resp BP Pulse Ox 08/07/20 04:00 97.8 F 71 15 104/51 100 08/07/20 02:00 18 08/06/20 23:00 97.7 F 82 16 110/55 100 08/06/20 22:16 119/70 08/06/20 21:30 87/55 08/06/20 20:30 114/75 08/06/20 20:00 130/84 08/06/20 19:45 194/90 08/06/20 19:42 99 08/06/20 19:30 18 87/50 Intake and Output 08/06/20 08/07/20 08/07/20 22:59 06:59 14:59 Output Total 680 Balance -680 Output: Urine 680 Other: Voiding Method Indwelling Catheter Weight 118 kg 118 kg -GENERAL: The patient is awake and alert and follows commands, not in any acute distress. Obese HEENT: Pupils are round and equally reacting to light. EOMI. No scleral icterus. No conjunctival pallor. Normocephalic, atraumatic. No pharyngeal erythema. No thyromegaly. CARDIOVASCULAR: S1 and S2 present. No murmurs, rubs, or gallops. PULMONARY: Chest is clear to auscultation, no wheezing or crackles. ABDOMEN: Soft, nontender, nondistended, normoactive bowel sounds. No palpable o rganomegaly. MUSCULOSKELETAL: No joint swelling or deformity. -EXTREMITIES: No cyanosis, clubbing, or pedal edema. Right leg is more warm than the left and more pinkish and slightly more swollen. No pain or tenderness of the leg however she has tender eschar, possible ulcer of the right ankle -NEUROLOGICAL: awake and alert and follows commands. She is disoriented to time, place and person. Cranial nerves are grossly intact, Except dysarthria which looks chronic. Right hemiparesis (chronic) SKIN: No rashes. No petechiae Results CBC & Chem 7: 08/06/20 20:19 08/06/20 20:19 Labs: Abnormal Lab Results - Last 24 Hours (Table) 08/06/20 08/06/20 08/06/20 Range/Units 20:19 20:19 21:00 RBC 3.35 L (3.80-5.40) m/uL Hgb 10.3 L (11.4-16.0) gm/dL Hct 33.4 L (34.0-46.0) % MCHC 30.9 L (31.0-37.0) g/dL RDW 16.8 H (11.5-15.5) % Chloride 90 L (98-107) mmol/L Carbon Dioxide 37 H (22-30) mmol/L BUN 100 H (7-17) mg/dL Creatinine 2.25 H (0.52-1.04) mg/dL Glucose 167 H (74-99) mg/dL POC Glucose (mg/dL) (75-99) mg/dL Alkaline Phosphatase 130 H (38-126) U/L Total Protein 5.8 L (6.3-8.2) g/dL Albumin 2.9 L (3.5-5.0) g/dL Urine Blood Small H (Negative) Ur Leukocyte Esterase Small H (Negative) Urine WBC 9 H (0-5) /hpf Urine Bacteria Rare H (None) /hpf Hyaline Casts 3 H (0-2) /lpf Urine Mucus Rare H (None) /hpf Urine Yeast (Budding) Occasional H (None) /hpf 08/06/20 08/07/20 Range/Units 21:49 06:09 RBC (3.80-5.40) m/uL Hgb (11.4-16.0) gm/dL Hct (34.0-46.0) % MCHC (31.0-37.0) g/dL RDW (11.5-15.5) % Chloride (98-107) mmol/L Carbon Dioxide (22-30) mmol/L BUN (7-17) mg/dL Creatinine (0.52-1.04) mg/dL Glucose (74-99) mg/dL POC Glucose (mg/dL) 165 H 164 H (75-99) mg/dL Alkaline Phosphatase (38-126) U/L Total Protein (6.3-8.2) g/dL Albumin (3.5-5.0) g/dL Urine Blood (Negative) Ur Leukocyte Esterase (Negative) Urine WBC (0-5) /hpf Urine Bacteria (None) /hpf Hyaline Casts (0-2) /lpf Urine Mucus (None) /hpf Urine Yeast (Budding) (None) /hpf Assessment and Plan Assessment: Right lower extremity cellulitis, Versus acute urinary tract infection. With elevated pro-calcitonin Hypotension, present on admission. Improved. mildly elevated troponin, rule out cardiac causes Metabolic encephalopathy secondary to above Type 2 diabetes mellitus Chronic kidney disease, stage IV. Secondary to diabetic nephropathy History of coronary artery disease Chronic heart failure history of deep venous thrombosis and pulmonary embolism on Eliquis History of CVA with right hemiparesis and dysarthria History of hypertension History of anxiety and depression, not an active issue Plan: This is a pleasant 65 years old female who presents with right leg cellulitis and hypotension with slightly up troponin. Continue with ceftriaxone. Follow- up urine culture. Check pro-troponin. Follow-up infectious disease recommendation. Continue with normal saline. Consult cardiology. Check ultrasound of the lower extremity Labs and medication were reviewed.. Continue same treatment. Continue with symptomatic treatment. Resume home medication. Monitor lytes and vitals. DVT and GI prophylaxis. Further recommendations depends on the clinical course of the patient DVT prophylaxis: on Eliquis GI prophylaxis: On PPI, Protonix Prognosis is guarded
[2020-08-07 11:08] LABS: INR 0.95 (0.90-1.11); Prothrombin Time 10.4 sec (9.9-11.9)
[2020-08-07 11:40] LABS: Glucose,Whole Blood 174 mg/dL (75-99)
[2020-08-07] MEDS ORDERED: INSULIN ASPART (NovoLOG) 100 UNIT/ML VIAL SQ SCH ×2 (12:00→17:00)
[2020-08-07] MEDS: PANTOPRAZOLE 40 MG/10 ML VIAL IVP SCH ×2 (12:06→20:03)
[2020-08-07] MEDS: PREGABALIN 75 MG CAP PO SCH ×2 (12:07→20:03)
[2020-08-07] MEDS: allopurinoL 100 MG TAB PO SCH (12:07)
[2020-08-07] MEDS: SERTRALINE 100 MG TAB PO SCH (12:07)
[2020-08-07] MEDS: ALPRAZolam 0.25 MG TAB PO SCH ×2 (12:07→20:03)
[2020-08-07] MEDS: LORATADINE 10 MG TAB PO SCH (12:07)
[2020-08-07] MEDS: APIXABAN 2.5 MG TABLET PO SCH ×2 (12:07→20:03)
[2020-08-07] MEDS: FLUOROMETHOLONE 0.1% OPHTH DROPS 5 ML BTL RIGHT EYE SCH (12:08)
[2020-08-07] MEDS: PIOGLITAZONE 30 MG TAB PO SCH (12:08)
[2020-08-07] MEDS: POTASSIUM CHLORIDE ER 10 MEQ TAB.ER.PRT PO SCH (12:09)
--- NOTE | 2020-08-07 13:25 | P.CRDCN ---
History of Present Illness Consult date: 08/07/20 History of present illness: CHIEF COMPLAINT: labile blood pressure HISTORY OF PRESENT ILLNESS: This is a 65-year-old female with a past medical history significant for paroxysmal atrial fibrillation, CVA with right-sided par alysis, diabetes mellitus, hypertension, and PE. 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 We have been asked to see the patient in consultation for labile blood pressure. Patient was transferred from [facility] for possible cellulitis. The patient was apparently hypotensive in route with EMS with a blood pressure of 60s/30s. Patients blood pressure this morning 150/100. Patient is a poor historian. She is only able to answer yes or no questions at the time of my examination. DIAGNOSTICS: EKG reveals sinus mechanism Chest xray negative for acute process Laboratory data: WBC 8.5. Hemoglobin 10.3. Platelet count 217. Sodium 137. Potassium 3.7. BUN 100. Creatinine 2.25. Troponin 0.013. Current home cardiac medications include Zaroxolyn 5 mg Thursday, Demadex 20 mg daily, Aldactone 25 mg daily REVIEW OF SYSTEMS: Unable to obtain thorough review of systems due to communication difficulties secondary to previous CVA PHYSICAL EXAM: VITAL SIGNS: Reviewed. GENERAL: Well-developed in no acute distress. HEENT: Head is normocephalic. Pupils are equal, round. Sclerae anicteric. Mucous membranes of the mouth are moist. Neck supple. No JVD or thyromegaly LUNGS: Respirations even and unlabored. Lungs diminished bilaterally. HEART: Regular rate and rhythm. S1 and S2 heard. ABDOMEN: Soft. Nondistended. Nontender. EXTREMITIES: Right side flaccid due to previous CVA. No clubbing or cyanosis. Peripheral pulses intact. Trace bilateral lower extremity edema NEUROLOGIC: Awake and alert. ASSESSMENT: Right lower extremity cellulitis Hypotension, since resolved History of paroxysmal atrial fibrillation, on anticoagulation with Eliquis Hypertension Chronic kidney disease Diabetes mellitus, type II History of DVT/PE History of CVA with right hemiparesis and dysarthria PLAN: Obtain 2-D echo to assess cardiac structure and function Discontinue Aldactone Begin Norvasc 5 mg daily Monitor blood pressure Further recommendations pending patient's course Nurse practitioner note has been reviewed by physician. Signing provider agrees with the documented findings, assessment, and plan of care. Past Medical History Past Medical History: Coronary Artery Disease (CAD), Heart Failure, CVA/TIA, Diabetes Mellitus, Deep Vein Thrombosis (DVT), GERD/Reflux, Hypertension, Pul monary Embolus (PE), Renal Disease Additional Past Medical History / Comment(s): tremmors, right sided weakness from CVA. Immobile uses hiral lift at [facility]. History of Any Multi-Drug Resistant Organisms: None Reported Past Surgical History: Tonsillectomy Additional Past Surgical History / Comment(s): G tube, pressure pump right eye Past Anesthesia/Blood Transfusion Reactions: No Reported Reaction Past Psychological History: Anxiety, Depression Smoking Status: Never smoker Past Alcohol Use History: None Reported Past Drug Use History: None Reported - Past Family History Father History Unknown: Yes Family Medical History: No Reported History, Unable to Obtain Mother History Unknown: Yes Family Medical History: No Reported History, Unable to Obtain Medications and Allergies Home Medications Medication Instructions Recorded Confirmed Type allopurinoL [Zyloprim] 200 mg PO DAILY@0700 07/24/17 08/06/20 History Fluorometholone 0.1% Ophth Juanita 1 drop RIGHT EYE DAILY@1200 08/30/18 08/06/20 History [Fml] Insulin Glargine [Lantus] 45 unit SQ DAILY@209908/30/18 08/06/20 History Latanoprost/Pf [Latanoprost 0.005% 1 drop BOTH EYES DAILY@199908/30/18 08/06/20 History Eye Drop] Magnesium Hydroxide [Milk of 2,400 mg PO Q48H PRN 08/30/18 08/06/20 History Magnesia] Nitroglycerin Sl Tabs [Nitrostat] 0.4 mg SL Q5M PRN 08/30/18 08/06/20 History Omeprazole 20 mg PO DAILY@0700 08/30/18 08/06/20 History Ondansetron HCl [Zofran] 4 mg PO Q6H 08/30/18 08/06/20 History Pioglitazone [Actos] 30 mg PO DAILY@0700 08/30/18 08/06/20 History Torsemide [Demadex] 20 mg PO DAILY@0700 #0 09/06/18 08/06/20 Rx ALPRAZolam [Xanax] 0.25 mg PO BID@0700,1900 08/06/20 08/06/20 History Acetaminophen Tab [Tylenol] 650 mg PO Q8H 08/06/20 08/06/20 History Albuterol Nebulized [Ventolin 2.5 mg INHALATION RT-Q6H 08/06/20 08/06/20 History Nebulized] Apixaban [Eliquis] 2.5 mg PO BID@0700,1700 08/06/20 08/06/20 History Atropine Ophth Soln 1% 5Ml [Isopto 2 drops SUBLINGUAL Q2H PRN 08/06/20 08/06/20 History Atropine 1% 5Ml] Bisacodyl 10 mg PO Q72H PRN 08/06/20 08/06/20 History Dorzolamide/Timolol/Pf [Cosopt Pf 1 drop BOTH EYES BID@0700,209908/06/2002/16 History 2%/5% Ophth Droperette] Doxycycline Hyclate 100 mg PO BID@0700,1900 08/06/20 08/06/20 History Fluticasone Nasal [place] [Flonase 1 spr EA NOSTRIL DAILY@69908/06/20 08/06/20 History Nasal Orange] Liquical 30 ml PO BID@0900,1700 08/06/20 08/06/20 History Loratadine 10 mg PO DAILY@0708/06/20 08/06/20 History Melatonin 5 mg PO HS@2100 08/06/20 08/06/20 History Menthol [[place]] 7.5 mg MM Q2H PRN 08/06/20 08/06/20 History Ocusoft Eyelid Cleansin Pad 1 applic BOTH EYES Q48H 08/06/20 08/06/20 History Potassium Chloride 10 meq PO DAILY@1200 08/06/20 08/06/20 History Pregabalin [Lyrica] 75 mg PO BID@0700,199908/06/20 08/06/20 History Sertraline HCl [Zoloft] 100 mg PO DAILY@69908/06/20 08/06/20 History Sodium Chloride [Saline Mist] 1 spray EA NOSTRIL Q2H PRN 08/06/20 08/06/20 History Spironolactone [Aldactone] 25 mg PO DAILY@0708/06/20 08/06/20 History bisacodyL [Bisacodyl] 10 mg RECTAL Q72H PRN 08/06/20 08/06/20 History guaiFENesin [Diabetic Tussin Ex] 200 mg PO Q4H PRN 08/06/20 08/06/20 History metOLazone [Zaroxolyn] 5 mg PO MOWEFR@0700 08/06/20 08/06/20 History traMADol HCL 50 mg PO Q6H PRN 08/06/20 08/06/20 History Allergies Allergy/AdvReac Type Severity Reaction Status Date / Time Iodinated Contrast Media Allergy Rash/Hives Verified 08/06/20 21:40 iodine Allergy Unknown Verified 08/06/20 21:40 Iodine and Iodide Containing Allergy Rash/Hives Verified 08/06/20 21:40 Produc Penicillins Allergy Rash/Hives Verified 08/06/20 21:40 tuberculin,PPD,multi-puncture Allergy Unknown Verified 08/06/20 21:40 warfarin Allergy Unknown Verified 08/06/20 21:40 codeine AdvReac Itching Verified 08/06/20 21:40 muscle rub Allergy Unknown Uncoded 08/06/20 21:40 Physical Exam Vitals: Vital Signs Temp Pulse Resp BP Pulse Ox 08/07/20 12:00 80 108/69 100 08/07/20 08:00 107 H 150/100 99 08/07/20 04:00 97.8 F 71 15 104/51 100 08/07/20 02:00 18 08/06/20 23:00 97.7 F 82 16 110/55 100 08/06/20 22:16 119/70 08/06/20 21:30 87/55 08/06/20 20:30 114/75 08/06/20 20:00 130/84 08/06/20 19:45 194/90 08/06/20 19:42 99 08/06/20 19:30 18 87/50 Intake and Output 08/06/20 08/07/20 08/07/20 22:59 06:59 14:59 Intake Total 240 Output Total 680 100 Balance -680 140 Intake: Oral 240 Output: Urine 680 100 Other: Voiding Method Indwelling Catheter Indwelling Catheter Weight 118 kg 118 kg Results 08/06/20 20:19 08/06/20 20:19 Cardiac Enzymes 08/06/20 08/07/20 Range/Units 20:19 07:06 AST 32 (14-36) U/L Troponin I 0.013 (0.000-0.034) ng/mL Coagulation 08/06/20 08/07/20 Range/Units 20:19 07:06 PT 10.1 10.4 (9.0-12.0) sec CBC 08/06/20 Range/Units 20:19 WBC 8.5 (3.8-10.6) k/uL RBC 3.35 L (3.80-5.40) m/uL Hgb 10.3 L (11.4-16.0) gm/dL Hct 33.4 L (34.0-46.0) % Plt Count 217 (150-450) k/uL Comprehensive Metabolic Panel 08/06/20 Range/Units 20:19 Sodium 137 (137-145) mmol/L Potassium 3.7 (3.5-5.1) mmol/L Chloride 90 L (98-107) mmol/L Carbon Dioxide 37 H (22-30) mmol/L BUN 100 H (7-17) mg/dL Creatinine 2.25 H (0.52-1.04) mg/dL Glucose 167 H (74-99) mg/dL Calcium 9.3 (8.4-10.2) mg/dL AST 32 (14-36) U/L ALT 30 (4-34) U/L Alkaline Phosphatase 130 H (38-126) U/L Total Protein 5.8 L (6.3-8.2) g/dL Albumin 2.9 L (3.5-5.0) g/dL Current Medications Generic Name Dose Route Start Last Admin Trade Name Freq PRN Reason Stop Dose Admin Acetaminophen 650 mg 08/06/20 22:30 08/07/20 07:59 Acetaminophen Tab 325 Mg Tab PO Not Given Q8H [facility] Albuterol Sulfate 2.5 mg 08/07/20 02:00 08/07/20 12:07 Albuterol Nebulized 2.5 Mg/3 Ml INHALATION Not Given RT-Q6H [facility] Allopurinol 200 mg 08/07/20 09:00 08/07/20 12:07 Allopurinol 100 Mg Tab PO 200 mg DAILY [facility] Administration Alprazolam 0.25 mg 08/07/20 07:00 08/07/20 12:07 Alprazolam 0.25 Mg Tab PO 0.25 mg BID@0700,1900 [facility] Administration Amlodipine Besylate 5 mg 08/08/20 09:00 Amlodipine 5 Mg Tab PO DAILY [facility] Apixaban 2.5 mg 08/07/20 07:00 08/07/20 12:07 Apixaban 2.5 Mg Tablet PO 2.5 mg BID@0700,1700 [facility] Administration Dorzolamide/Timolol 1 drops 08/07/20 07:00 08/07/20 06:52 Dorzolamide-Timolol 2.23%/0.68 10ml Btl BOTH EYES 1 drops BID@0700,2100 [facility] Administration Doxycycline Monohydrate 100 mg 08/07/20 07:00 Doxycycline 100 Mg Cap PO BID@0700,1900 [facility] Fluorometholone 1 drops 08/07/20 09:00 08/07/20 12:08 Fluorometholone 0.1% Ophth Drops 5 Ml Btl RIGHT EYE 1 drops DAILY [facility] Administration Fluticasone Propionate 1 spray 08/07/20 07:00 08/07/20 06:51 Fluticasone 50mcg/Orange Nasal 16gm EA NOSTRIL 1 spray DAILY@0700 [facility] Administration Sodium Chloride 1,000 mls @ 100 mls/hr 08/06/20 20:15 08/07/20 06:54 Saline 0.9% IV 100 mls/hr .Q10H [facility] Administration Ceftriaxone Sodium 2 gm/ 50 mls @ 100 mls/hr 08/06/20 20:30 08/06/20 21:20 Sodium Chloride IVPB 100 mls/hr Q24H [facility] Administration Insulin Detemir 45 unit 08/07/20 22:30 Insulin Detemir (Levemir) 100 Unit/Ml Syr SQ HS [facility] Latanoprost 1 drops 08/07/20 20:00 Latanoprost 0.005% Ophth Drops 2.5 Ml Btl BOTH EYES DAILY@2000 [facility] Loratadine 10 mg 08/07/20 07:00 08/07/20 12:07 Loratadine 10 Mg Tab PO 10 mg DAILY@0700 [facility] Administration Magnesium Hydroxide 2,400 mg 08/06/20 20:29 Magnesium Hydroxide 2,400 Mg/10 Ml Cup PO DAILY PRN Constipation Melatonin 5 mg 08/07/20 21:00 Melatonin 5 Mg Tablet PO HS@2100 [facility] Metolazone 5 mg 08/08/20 07:00 Metolazone 5 Mg Tab PO MOWEFR@0700 [facility] Ondansetron HCl 4 mg 08/07/20 00:00 08/07/20 12:14 Ondansetron 4 Mg Tab PO 4 mg Q6HR [facility] Administration Pantoprazole Sodium 40 mg 08/06/20 21:00 08/07/20 12:06 Pantoprazole 40 Mg/10 Ml Vial IVP 40 mg BID [facility] Administration Pioglitazone HCl 30 mg 08/07/20 09:00 08/07/20 12:08 Pioglitazone 30 Mg Tab PO Not Given DAILY@0900 [facility] Potassium Chloride 10 meq 08/07/20 12:00 08/07/20 12:09 Potassium Chloride Er 10 Meq Tab.Er.Prt PO 10 meq DAILY@1200 [facility] Administration Pregabalin 75 mg 08/07/20 07:00 08/07/20 12:07 Pregabalin 75 Mg Cap PO 75 mg BID@0700,1900 [facility] Administration Sertraline HCl 100 mg 08/07/20 07:00 08/07/20 12:07 Sertraline 100 Mg Tab PO 100 mg DAILY@0700 [facility] Administration Tramadol HCl 50 mg 08/06/20 22:17 Tramadol 50 Mg Tab PO Q6H PRN Pain Intake and Output 08/06/20 08/07/20 08/07/20 22:59 06:59 14:59 Intake Total 240 Output Total 680 100 Balance -680 140 Intake: Oral 240 Output: Urine 680 100 Other: Voiding Method Indwelling Catheter Indwelling Catheter Weight 118 kg 118 kg 08/06/20 20:19 08/06/20 20:19
[2020-08-07] MEDS: DOXYCYCLINE 100 MG CAP PO SCH ×2 (14:44→20:07)
[2020-08-07] MEDS: traMADol 50 MG TAB PO PRN (16:47)
[2020-08-07 16:54] LABS: Glucose,Whole Blood 214 mg/dL (75-99)
[2020-08-07] MEDS ORDERED: WARFARIN 3 MG TAB PO SCH (20:00)
[2020-08-07] MEDS: MELATONIN 5 MG TABLET PO SCH (20:03)
[2020-08-07] MEDS: LATANOPROST 0.005% OPHTH DROPS 2.5 ML BTL BOTH EYES SCH (20:04)
[2020-08-07 20:15] LABS: Glucose,Whole Blood 257 mg/dL (75-99)
[2020-08-07] MEDS: INSULIN DETEMIR (LEVEMIR) 100 UNIT/ML SYR SQ SCH (21:20)
[2020-08-07] MEDS ORDERED: ALBUTEROL NEBULIZED 2.5 MG/3 ML INHALATION PRN (21:35)
--- NOTE | 2020-08-08 01:30 | CONS ---
CONSULTATION DATE OF SERVICE: 08/07/2020 REASON FOR CONSULTATION: Lower extremity cellulitis. HISTORY OF PRESENT ILLNESS: The patient is a 65 -year-old female with multiple comorbidities including CVA with right sided hemiparesis in this patient who does have history of DVT, PE and did have chronic lower extremity swelling. The patient was sent to [facility] for better evaluation of increasing swelling in the lower extremity. Apparently, the patient did have some fever. The patient not a good historian. The patient was diagnosed with cellulitis at that facility. Subsequently, the patient has been transferred to [facility] for further management. The patient denies having any headache or URI symptoms. Denies any chest pain. No shortness of breath or cough. No abdominal pain. She is complaining of urinary burning that has been going on for the last day or two. No diarrhea though. No suprapubic or flank pain. The patient, on presenting to this facility, has been afebrile. The patient did have a normal white count with no left shift. Kidney function slightly elevated with creatinine 2.25. Urine was positive. Patient was started on Rocephin. Chest x-ray has been reported negative for acute pulmonary process. Infectious Disease was consulted for further management of antibiotic therapy with concern for lower extremity cellulitis. REVIEW OF SYSTEMS: Positive points have been mentioned in HPI. Rest of systems are negative. PAST MEDICAL HISTORY: Coronary artery disease, heart failure, CVA, TIA, diabetes mellitus, DVT, PE, hypertension, renal insufficiency. PAST SURGICAL HISTORY: Tonsillectomy, G-tube placement. SOCIAL HISTORY: No history of smoking, drinking or drug use. FAMILY HISTORY: No pertinent findings noticed. ALLERGIES: ALLERGIES TO IODINE, PENICILLIN, MORPHINE, tolerated Rocephin without any problem. MEDICATIONS: The patient is currently on Tylenol, Ventolin, Zyloprim, Xanax, Norvasc, Eliquis, Rocephin 2 g daily, doxycycline, Levemir, Levaquin, melatonin, Zaroxolyn and Zofran, Protonix, Actos, Lyrica, Zoloft and Tramadol. PHYSICAL EXAMINATION: Blood pressure is 96/59 with a pulse of 93, temperature 98.7. She is 97% on 2 L. General description: The patient is a middle-aged female lying in bed in no distress. No tachypnea or accessory muscles of respiration use. HEENT examination: Pallor. No scleral icterus. Oral mucous membranes dry. NECK: Trachea central. No thyromegaly. LUNGS: Unlabored breathing, decreased breath sounds in the base, with no wheeze. HEART S1, S2. Regular rate and rhythm. ABDOMEN: Soft. No tenderness. No guarding. No rigidity. EXTREMITIES: Diffuse swelling. Minimal erythema. No skin breakdown or drainage. The patient did have a necrotic wound on the right heel area, but no cellulitis. NEUROLOGICAL: Patient is awake, alert, oriented times three. Mood and affect normal. LABS: Hemoglobin is 10.3, white count 8.5. BUN of 100, creatinine is 2.25. Liver enzymes normal. Urine is mildly positive. DIAGNOSTIC IMPRESSION AND PLAN: 1. Patient admitted to the hospital with swelling lower extremity and concern for possible cellulitis. Patient predominantly does have a urinary symptoms and possible component of urinary tract infection, cellulitis not as prominent in this patient with no fever or elevated white count. 2. Necrotic wound to the right heel, but no evidence of any cellulitis. PLAN: 1. Patient to continue Rocephin 2 g which will cover for possible mild cellulitis as well as urinary tract infection. 2. Keep the right heel dry and off the pressure and may benefit from vascular evaluation and possible debridement. 3. We will follow on clinical condition and further adjust medication if needed. Thank you for this consultation. We will follow this patient with you. MMODL / IJN: [id number] /
[2020-08-08] MEDS: SODIUM CHLORIDE 0.9% 1,000 ML IV SCH (03:29)
[2020-08-08 06:06] LABS: Glucose,Whole Blood 136 mg/dL (75-99)
[2020-08-08] MEDS: PREGABALIN 75 MG CAP PO SCH ×2 (06:16→18:18)
[2020-08-08] MEDS: ALPRAZolam 0.25 MG TAB PO SCH ×2 (06:16→18:17)
[2020-08-08] MEDS: ACETAMINOPHEN TAB 325 MG TAB PO SCH ×3 (06:17→21:15)
[2020-08-08] MEDS: ONDANSETRON 4 MG TAB PO SCH ×4 (06:17→23:02)
[2020-08-08] MEDS: APIXABAN 2.5 MG TABLET PO SCH ×2 (06:17→18:18)
[2020-08-08] MEDS: DORZOLAMIDE-TIMOLOL 2.23%/0.68 10ML BTL BOTH EYES SCH ×2 (06:18→21:14)
[2020-08-08] MEDS: FLUTICASONE 50MCG/SPRAY NASAL 16GM EA NOSTRIL SCH (06:19)
[2020-08-08] MEDS: LORATADINE 10 MG TAB PO SCH (06:20)
[2020-08-08] MEDS: SERTRALINE 100 MG TAB PO SCH (06:21)
[2020-08-08] MEDS: DOXYCYCLINE 100 MG CAP PO SCH (06:22)
[2020-08-08] MEDS: metOLazone 5 MG TAB PO SCH (06:22)
[2020-08-08] MEDS: ALBUTEROL NEBULIZED 2.5 MG/3 ML INHALATION SCH ×4 (08:40→20:11)
[2020-08-08] MEDS ORDERED: amLODIPine 5 MG TAB PO SCH (09:00)
[2020-08-08] MEDS: PANTOPRAZOLE 40 MG/10 ML VIAL IVP SCH ×2 (09:42→21:13)
[2020-08-08] MEDS: PIOGLITAZONE 30 MG TAB PO SCH (09:42)
[2020-08-08] MEDS: allopurinoL 100 MG TAB PO SCH (09:42)
[2020-08-08] MEDS: FLUOROMETHOLONE 0.1% OPHTH DROPS 5 ML BTL RIGHT EYE SCH (09:43)
--- NOTE | 2020-08-08 11:01 | ECHOF ---
Referral Reason:LV function MEASUREMENTS -------- HEIGHT: 157.5 cm WEIGHT: 122.5 kg BP: 104/54 RVIDd: 2.5 cm (< 3.3) IVSd: 1.2 cm (0.6 - 1.1) LVIDd: 4.3 cm (3.9 - 5.3) LVPWd: 1.3 cm (0.6 - 1.1) IVSs: 1.5 cm LVIDs: 2.5 cm LVPWs: 1.9 cm Ao Diam: 2.8 cm (2.0 - 3.7) AV Cusp: 1.9 cm (1.5 - 2.6) LA Diam: 3.6 cm (2.7 - 3.8) MV E Vern: 0.76 m/s MV DecT: 213 ms MV A Vern: 0.96 m/s MV E/A Ratio: 0.79 RAP: 5.00 mmHg RVSP: 10.17 mmHg FINDINGS -------- Sinus rhythm. This was a technically difficult study with suboptimal views. The left ventricular size is normal. There is mild concentric left ventricular hypertrophy. Overa ll left ventricular systolic function is normal with, an EF between 55 - 60 %. The right ventricle is normal in size. The left atrial size is normal. The right atrium was not well visualized. Lumason used The aortic valve was not well visualized. The mitral valve was not well visualized. There is trace mitral regurgitation. The tricuspid valve appears structurally normal. Trace tricuspid regurgitation present. Right palmer tricular systolic pressure is normal at < 35 mmHg. The pulmonic valve was not well visualized. The aortic root size is normal. IVC Not well visulized. There is no pericardial effusion. CONCLUSIONS -------- 1. This was a technically difficult study with suboptimal views. 2. There is mild concentric left ventricular hypertrophy. 3. Overall left ventricular systolic function is normal with, an EF between 55 - 60 %. 4. The aortic valve was not well visualized. 5. There is trace mitral regurgitation. 6. Trace tricuspid regurgitation present. 7. There is no pericardial effusion. DEALER SALES MANAGER: Kisha Shepard, [facility]
[2020-08-08 11:10] LABS: Anisocytosis Slight; Basophils # (A) 0.1 k/uL (0-0.2); Basophils % (A) 1 %; Eosinophils # (A) 0.2 k/uL (0-0.7); Eosinophils % (A) 3 %; HCT 29.8 % (34.0-46.0); HGB 9.1 gm/dL (11.4-16.0); Hypochromasia Slight; Lymphocytes % (A) 28 %; MCH 30.5 pg (25.0-35.0); MCHC 30.6 g/dL (31.0-37.0); MCV 99.6 fL (80.0-100.0); Macrocytosis Slight; Mean Platelet Volume 9.3; Monocytes # (A) 0.5 k/uL (0-1.0); Monocytes % (A) 7 %; Neutrophils # (A) 4.1 k/uL (1.3-7.7); Neutrophils % (A) 58 %; Platelet Count 190 k/uL (150-450); RBC 2.99 m/uL (3.80-5.40); RDW 16.8 % (11.5-15.5); WBC 7.1 k/uL (3.8-10.6)
[2020-08-08 11:44] LABS: Glucose,Whole Blood 100 mg/dL (75-99)
[2020-08-08] MEDS: POTASSIUM CHLORIDE ER 10 MEQ TAB.ER.PRT PO SCH (11:56)
--- NOTE | 2020-08-08 12:03 | US ---
EXAMINATION TYPE: US venous doppler duplex LE DATE OF EXAM: 08/08/2020 10:29 AM COMPARISON: NONE CLINICAL HISTORY: 65-year-old female with pain, cellulitis bilateral legs SIDE PERFORMED: Bilateral TECHNIQUE: The lower extremity deep venous system is examined utilizing real time linear array sonog coreen with graded compression, doppler sonography and color-flow sonography. FINDINGS: VESSELS IMAGED: Common Femoral Vein Greater Saphenous Vein * Femoral Vein Popliteal Vein Small Saphenous Vein * (* superficial vessels) GLASS CLEANING MACHINE TENDER NOTES: Right Leg: Extreme technical limitations due to patient's body habitus, morbidly obese, large pann us. No evidence of acute DVT as visualized. Unable to obtain compressions at popliteal vein, patient unable to rotate leg into adequate position Left Leg: Extreme technical limitations due to patient's body habitus, morbidly obese. Unable to v isualize EIV, CFV, or Deep femoral vein due to large pannus. No evidence of acute DVT as visualized. Unable to obtain compressions at lower femoral vein. IMPRESSION: Very limited exam as above. Of the visualized portions of the lower extremities, no DVT is identified .
--- NOTE | 2020-08-08 12:05 | XR ---
EXAMINATION TYPE: XR chest 1V DATE OF EXAM: 08/08/2020 COMPARISON: 08/06/2020 HISTORY: 65 year-old female shortness of breath TECHNIQUE: Single frontal view of the chest is obtained. FINDINGS: Leftward patient rotation alters normal cardiac and mediastinal contours. Heart is borderline in size . Low lung volumes with crowded vascular markings. Unable to exclude developing patchy peripheral lef t basilar and retrocardiac opacities. IMPRESSION: Limited rotated and hypoventilatory exam. Unable to exclude patchy atelectasis or infiltrates develop ing in the periphery of the left base and retrocardiac region.
[2020-08-08 12:11] LABS: Calcium 8.7 mg/dL (8.4-10.2); Potassium 3.7 mmol/L (3.5-5.1)
--- NOTE | 2020-08-08 13:02 | P.PN ---
Subjective This is a pleasant 65 years old female with past medical history of coronary artery disease, heart failure, CVA with right hemiparesis, diabetes mellitus, history of deep venous thrombosis and pulmonary embolism on Eliquis, chronic kidney disease, GERD, hypertension.Patient was transferred from [facility]. I reviewed the records from [facility], I couldn't see a note from emergency room physician Dr. Lamas [facility]. Patient looks awake and alert and has good attention span and follows commands, she has dysarthria and a light in answering question which looks chronic. She states that she lives at home when asked is a shelter she states yesterday. She is disoriented to time, place and person. She did not complain from anything when asked however during exam she pointed to her right ankle as hurting and it was tender, there was no signs of cellulitis in the right ankle but there is blackish scar possible ulcer, there was more redness and swelling in the right leg compared to the left side however she denies tenderness or pain On reviewing the records from [facility] showing glucose of 159, CPKs 47, troponin is mildly elevated at 0.04. Urinalysis shows specific gravity less than 1.005. Blood is 2+. No signs of infection Magnesium is normal at 1.6 and phosphorus normal at 3.2, pro-, calcitonin is elevated at 0.5 lactic acid is normal at 1.9 WBC slightly elevated at 10.9 K with reference range 4.0-10.5. Hemoglobin is 10.2, platelet is normal at 180 7K. BMP showing normal sodium at 133 and potassium 4.2. Creatinine is elevated at 2.0 AST is normal at 42 and ALT normal at 30. Total bilirubin is normal at 0.6. Chest x-ray: Showing cardiomegaly and low lung volumes without acute pulmonary process CT of the abdomen and pelvis without contrast reported: No bowel obstruction. No acute findings added to find on noncontrast study per report EKG showing normal sinus rhythm at 82 with QTC [address]-T changes on EKG Currently her vitals are stable, afebrile. Labs showing no leukocytosis with WBC is 8.5. Hemoglobin is 10.3 which is at baseline. INR is 0.9. Sodium 1 potassium are within the reference range. Creatinine at baseline at 2.2. Glucose control. Liver enzymes AST and ALT are not elevated. Urine analysis is suspicious for infection with small leukocyte esterase Patient was transferred to [address] [place] [address] for hypotension, A team was called and patient received IV fluids and antibiotic. She received 1 L of normal saline and placed on 100 mL per hour She was started on ceftriaxone Also patient was noted to be ALLERGIC to penicillin, sulfa, codeine and IV dye 08/08/2020 Patient lying in bed, looks lethargic similar to yesterday which looks close to her baseline, she has right hemiparesis, which is chronic. After still in place. Her right leg is a little bit better, not warm today. Hemodynamically stable. Labs are stable and creatinine is stable at 2.0, sugar is controlled. Troponin is negative less than 0.012. Chest x-ray unable to exclude patchy atelectasis or infiltrate developing in the periphery of the left base and retrocardiac regions. Doppler of the lower extremity showing no deep venous thrombosis Echocardiogram showed ejection fraction 55-60% Patient remains on ceftriaxone per ID team recommendation for her right leg cell ulitis and UTI. Vera catheter remains in place. Home medications doxycycline was held Vascular surgery was consulted for her right ankle eschar wound Swallow eval: There were no overt s/s of aspiration/penetration exhibited with any trials presented. Recommend initiation of Dysphagia III - chopped texture diet and thin liquids, starws okm, general aspiration precautions, and medications whole with liquids. Review of Systems CONSTITUTIONAL: No fever, no malaise, no fatigue. HEENT: No recent visual problems or hearing problems. Denied any sore throat. CARDIOVASCULAR: No orthopnea, PND, no palpitations, no syncope. PULMONARY: No shortness of breath, no cough, no hemoptysis. GASTROINTESTINAL: No diarrhea, no nausea, no vomiting, no abdominal pain. Normoactive bowel sounds. NEUROLOGICAL: No headaches, no numbness. Active Medications Generic Name Dose Route Start Last Admin Trade Name Freq PRN Reason Stop Dose Admin Acetaminophen 650 mg 08/06/20 22:30 08/08/20 06:17 Acetaminophen Tab 325 Mg Tab PO Not Given Q8H ROSE Albuterol Sulfate 2.5 mg 08/07/20 21:35 Albuterol Nebulized 2.5 Mg/3 Ml INHALATION RT-QID PRN Shortness Of Breath Or Wheezing Albuterol Sulfate 2.5 mg 08/08/20 08:00 08/08/20 11:49 Albuterol Nebulized 2.5 Mg/3 Ml INHALATION Not Given RT-QID [facility] Allopurinol 200 mg 08/07/20 09:00 08/08/20 09:42 Allopurinol 100 Mg Tab PO 200 mg DAILY ROSE Administration Alprazolam 0.25 mg 08/07/20 07:00 08/08/20 06:16 Alprazolam 0.25 Mg Tab PO 0.25 mg BID@0700,1900 [facility] Administration Apixaban 2.5 mg 08/07/20 07:00 08/08/20 06:17 Apixaban 2.5 Mg Tablet PO 2.5 mg BID@0700,1700 [facility] Administration Dorzolamide/Timolol 1 drops 08/07/20 07:00 08/08/20 06:18 Dorzolamide-Timolol 2.23%/0.68 10ml Btl BOTH EYES 1 drops BID@0700,2100 [facility] Administration Fluorometholone 1 drops 08/07/20 09:00 08/08/20 09:43 Fluorometholone 0.1% Ophth Drops 5 Ml Btl RIGHT EYE 1 drops DAILY [facility] Administration Fluticasone Propionate 1 spray 08/07/20 07:00 08/08/20 06:19 Fluticasone 50mcg/[place] Nasal 16gm EA NOSTRIL 1 spray DAILY@07 [facility] Administration Ceftriaxone Sodium 2 gm/ 50 mls @ 100 mls/hr 08/06/20 20:30 08/07/20 20:07 Sodium Chloride IVPB 100 mls/hr Q24H [facility] Administration Insulin Detemir 45 unit 08/07/20 22:30 08/07/20 21:20 Insulin Detemir (Levemir) 100 Unit/Ml Syr SQ 45 unit HS [facility] Administration Latanoprost 1 drops 08/07/20 20:00 08/07/20 20:04 Latanoprost 0.005% Ophth Drops 2.5 Ml Btl BOTH EYES 1 drops DAILY@2000 [facility] Administration Loratadine 10 mg 08/07/20 07:00 08/08/20 06:20 Loratadine 10 Mg Tab PO 10 mg DAILY@0700 [facility] Administration Magnesium Hydroxide 2,400 mg 08/06/20 20:29 Magnesium Hydroxide 2,400 Mg/10 Ml Cup PO DAILY PRN Constipation Melatonin 5 mg 08/07/20 21:00 08/07/20 20:03 Melatonin 5 Mg Tablet PO 5 mg HS@2100 ROSE Administration Metolazone 5 mg 08/08/20 07:00 08/08/20 06:22 Metolazone 5 Mg Tab PO 5 mg MOWEFR@0700 RO[facility] Administration Ondansetron HCl 4 mg 08/07/20 00:00 08/08/20 11:56 Ondansetron 4 Mg Tab PO 4 mg Q6HR ROSE Administration Pantoprazole Sodium 40 mg 08/06/20 21:00 08/08/20 09:42 Pantoprazole 40 Mg/10 Ml Vial IVP 40 mg BID ROSE Administration Pioglitazone HCl 30 mg 08/07/20 09:00 08/08/20 09:42 Pioglitazone 30 Mg Tab PO 30 mg DAILY@0900 ROSE Administration Potassium Chloride 10 meq 08/07/20 12:00 08/08/20 11:56 Potassium Chloride Er 10 Meq Tab.Er.Prt PO 10 meq DAILY@1200 ROSE Administration Pregabalin 75 mg 08/07/20 07:00 08/08/20 06:16 Pregabalin 75 Mg Cap PO 75 mg BID@0700,1900 [facility] Administration Sertraline HCl 100 mg 08/07/20 07:00 08/08/20 06:21 Sertraline 100 Mg Tab PO 100 mg DAILY@0700 ROSE Administration Tramadol HCl 50 mg 08/06/20 22:17 08/07/20 16:47 Tramadol 50 Mg Tab PO 50 mg Q6H PRN Administration Pain Objective - Vital Signs Vital signs: Vital Signs Temp 97.6 F 08/08/20 08:00 Pulse 72 08/08/20 11:47 Resp 18 08/08/20 11:47 BP 103/66 08/08/20 11:47 Pulse Ox 100 08/08/20 11:47 Intake & Output 08/07/20 08/08/20 08/08/20 18:59 06:59 18:59 Intake Total 1200 1000 Output Total 500 300 Balance 700 700 Weight 122.5 kg 122.5 kg Intake: IV 1000 0.9@100mls/hr 1000 Oral 1200 Output: Urine 500 300 Other: Voiding Method Indwelling Catheter Indwelling Catheter Indwelling Catheter # Bowel Movements 1 - Exam -GENERAL: The patient is awake and alert and follows commands, not in any acute distress. Obese HEENT: Pupils are round and equally reacting to light. EOMI. No scleral icterus. No conjunctival pallor. Normocephalic, atraumatic. No pharyngeal erythema. No thyromegaly. CARDIOVASCULAR: S1 and S2 present. No murmurs, rubs, or gallops. PULMONARY: Chest is clear to auscultation, no wheezing or crackles. ABDOMEN: Soft, nontender, nondistended, normoactive bowel sounds. No palpable organomegaly. MUSCULOSKELETAL: No joint swelling or deformity. -EXTREMITIES: No cyanosis, clubbing, or pedal edema. Right leg is more warm than the left and more pinkish and slightly more swollen. No pain or tenderness of the leg however she has tender eschar, possible ulcer of the right ankle -NEUROLOGICAL: awake and alert and follows commands. She is disoriented to time, place and person. Cranial nerves are grossly intact, Except dysarthria which looks chronic. Right hemiparesis (chronic) SKIN: No rashes. No petechiae - Labs CBC & Chem 7: 08/08/20 10:34 08/08/20 10:34 Labs: Abnormal Lab Results - Last 24 Hours (Table) 08/07/20 08/07/20 08/08/20 Range/Units 16:43 20:13 06:05 RBC (3.80-5.40) m/uL Hgb (11.4-16.0) gm/dL Hct (34.0-46.0) % MCHC (31.0-37.0) g/dL RDW (11.5-15.5) % Sodium (137-145) mmol/L Chloride (98-107) mmol/L Carbon Dioxide (22-30) mmol/L BUN (7-17) mg/dL Creatinine (0.52-1.04) mg/dL POC Glucose (mg/dL) 214 H 257 H 136 H (75-99) mg/dL 08/08/20 08/08/20 08/08/20 Range/Units 10:34 10:34 11:38 RBC 2.99 L (3.80-5.40) m/uL Hgb 9.1 L (11.4-16.0) gm/dL Hct 29.8 L (34.0-46.0) % MCHC 30.6 L (31.0-37.0) g/dL RDW 16.8 H (11.5-15.5) % Sodium 135 L (137-145) mmol/L Chloride 96 L (98-107) mmol/L Carbon Dioxide 34 H (22-30) mmol/L BUN 90 H (7-17) mg/dL Creatinine 2.01 H (0.52-1.04) mg/dL POC Glucose (mg/dL) 100 H (75-99) mg/dL Microbiology - Last 24 Hours (Table) 08/07/20 20:17 Urine Culture - Preliminary Urine,Catheterized 08/06/20 20:19 Blood Culture - Preliminary Blood No Growth after 24 hours Assessment and Plan Assessment: Right lower extremity cellulitis, Versus acute urinary tract infection. With elevated pro-calcitonin Right ankle necrotic wound Hypotension, present on admission. Improved. mildly elevated troponin, cardiology team on the case from, no further workup Metabolic encephalopathy secondary to above Type 2 diabetes mellitus Chronic kidney disease, stage IV. Secondary to diabetic nephropathy History of coronary artery disease Chronic heart failure history of deep venous thrombosis and pulmonary embolism on Eliquis History of CVA with right hemiparesis and dysarthria History of hypertension History of anxiety and depression, not an active issue Plan: This is a pleasant 65 years old female who presents with right leg cellulitis and hypotension with slightly up troponin. Continue with ceftriaxone. Follow- up urine culture. Follow-up infectious disease recommendation. Cardiology team on the case. Consult vascular surgery. Labs and medication were reviewed.. Continue same treatment. Continue with symptomatic treatment. Resume home medication. Monitor lytes and vitals. DVT and GI prophylaxis. Further recommendations depends on the clinical course of the patient DVT prophylaxis: on Eliquis GI prophylaxis: On PPI, Protonix Prognosis is guarded
[2020-08-08] MEDS ORDERED: DARBEPOETIN ALFA 40 MCG/0.4 ML SYRINGE SQ SCH (14:30)
--- NOTE | 2020-08-08 15:40 | P.GSCN ---
History of Present Illness History of present illness: 65 old white female, I was consulted for right heel eschar formation for the past 3 months. Patient also has been admitted for possible cellulitis under care of infectious disease. Patient has this eschar for the last 3 month there is no evidence of infection or drainage from the right heel. Patient has history of CVA in the past, patient also has history of coronary artery disease, obesity, hypertension, On examination patient was seen in her room patient is 48 stable afebrile Neck is supple no bruit appreciated chest few rhonchi or good entry both lungs Abdomen soft nontender lower extremity patient has this some Brown induration of the both lower extremity no evidence of any infection or redness noted right heel has a eschar on for the last 3 months there is no evidence of any drainage or infection Plan is at this point patient and IV antibiotic and ask for eschar is concerned is not infected we will leave it alone if his got infected we considered debridement of the right heel at this point patient does not need any more surgical intervention Past Medical History Past Medical History: Coronary Artery Disease (CAD), Heart Failure, CVA/TIA, Diabetes Mellitus, Deep Vein Thrombosis (DVT), GERD/Reflux, Hypertension, Pulmonary Embolus (PE), Renal Disease Additional Past Medical History / Comment(s): tremmors, right sided weakness from CVA. Immobile uses hiral lift at [facility]. History of Any Multi-Drug Resistant Organisms: None Reported Past Surgical History: Tonsillectomy Additional Past Surgical History / Comment(s): G tube, pressure pump right eye Past Anesthesia/Blood Transfusion Reactions: No Reported Reaction Past Psychological History: Anxiety, Depression Smoking Status: Never smoker Past Alcohol Use History: None Reported Past Drug Use History: None Reported - Past Family History Father History Unknown: Yes Family Medical History: No Reported History, Unable to Obtain Mother History Unknown: Yes Family Medical History: No Reported History, Unable to Obtain Medications and Allergies Home Medications Medication Instructions Recorded Confirmed Type allopurinoL [Zyloprim] 200 mg PO DAILY@0700 07/24/17 08/06/20 History Fluorometholone 0.1% Ophth Juanita 1 drop RIGHT EYE DAILY@1200 08/30/18 08/06/20 History [Fml] Insulin Glargine [Lantus] 45 unit SQ DAILY@2100 08/30/18 08/06/20 History Latanoprost/Pf [Latanoprost 0.005% 1 drop BOTH EYES DAILY@199908/30/18 08/06/20 History Eye Drop] Magnesium Hydroxide [Milk of 2,400 mg PO Q48H PRN 08/30/18 08/06/20 History Magnesia] Nitroglycerin Sl Tabs [Nitrostat] 0.4 mg SL Q5M PRN 08/30/18 08/06/20 History Omeprazole 20 mg PO DAILY@0700 08/30/18 08/06/20 History Ondansetron HCl [Zofran] 4 mg PO Q6H 08/30/18 08/06/20 History Pioglitazone [Actos] 30 mg PO DAILY@0700 08/30/18 08/06/20 History Torsemide [Demadex] 20 mg PO DAILY@0700 #0 09/06/18 08/06/20 Rx ALPRAZolam [Xanax] 0.25 mg PO BID@0700,1900 08/06/20 08/06/20 History Acetaminophen Tab [Tylenol] 650 mg PO Q8H 08/06/20 08/06/20 History Albuterol Nebulized [Ventolin 2.5 mg INHALATION RT-Q6H 08/06/20 08/06/20 History Nebulized] Apixaban [Eliquis] 2.5 mg PO BID@0700,1700 08/06/20 08/06/20 History Atropine Ophth Soln 1% 5Ml [Isopto 2 drops SUBLINGUAL Q2H PRN 08/06/20 08/06/20 History Atropine 1% 5Ml] Bisacodyl 10 mg PO Q72H PRN 08/06/20 08/06/20 History Dorzolamide/Timolol/Pf [Cosopt Pf 1 drop BOTH EYES BID@0700,2100 08/06/20 08/06/20 History 2%/5% Ophth Droperette] Doxycycline Hyclate 100 mg PO BID@0700,1900 08/06/20 08/06/20 History Fluticasone Nasal [place] [Flonase 1 spr EA NOSTRIL DAILY@0700 08/06/20 08/06/20 History Nasal [place]] Liquical 30 ml PO BID@0900,1700 08/06/20 08/06/20 History Loratadine 10 mg PO DAILY@0700 08/06/20 08/06/20 History Melatonin 5 mg PO HS@2100 08/06/20 08/06/20 History Menthol [[place]] 7.5 mg MM Q2H PRN 08/06/20 08/06/20 History Ocusoft Eyelid Cleansin Pad 1 applic BOTH EYES Q48H 08/06/20 08/06/20 History Potassium Chloride 10 meq PO DAILY@1200 08/06/20 08/06/20 History Pregabalin [Lyrica] 75 mg PO BID@0700,199908/06/20 08/06/20 History Sertraline HCl [Zoloft] 100 mg PO DAILY@0700 08/06/20 08/06/20 History Sodium Chloride [Saline Mist] 1 spray EA NOSTRIL Q2H PRN 08/06/20 08/06/20 History Spironolactone [Aldactone] 25 mg PO DAILY@0700 08/06/20 08/06/20 History bisacodyL [Bisacodyl] 10 mg RECTAL Q72H PRN 08/06/20 08/06/20 History guaiFENesin [Diabetic Tussin Ex] 200 mg PO Q4H PRN 08/06/20 08/06/20 History metOLazone [Zaroxolyn] 5 mg PO MOWEFR@0700 08/06/20 08/06/20 History traMADol HCL 50 mg PO Q6H PRN 08/06/20 08/06/20 History Allergies Allergy/AdvReac Type Severity Reaction Status Date / Time Iodinated Contrast Media Allergy Rash/Hives Verified 08/06/20 21:40 iodine Allergy Unknown Verified 08/06/20 21:40 Iodine and Iodide Containing Allergy Rash/Hives Verified 08/06/20 21:40 Produc Penicillins Allergy Rash/Hives Verified 08/06/20 21:40 tuberculin,PPD,multi-puncture Allergy Unknown Verified 08/06/20 21:40 warfarin Allergy Unknown Verified 08/06/20 21:40 codeine AdvReac Itching Verified 08/06/20 21:40 muscle rub Allergy Unknown Uncoded 08/06/20 21:40 Surgical - Exam Vital Signs Resp BP 18 87/50 08/06/20 19:30 08/06/20 19:30 Results - Labs 08/08/20 10:34 08/08/20 10:34 Abnormal Lab Results - Last 24 Hours (Table) 08/07/20 08/07/20 08/08/20 Range/Units 16:43 20:13 06:05 RBC (3.80-5.40) m/uL Hgb (11.4-16.0) gm/dL Hct (34.0-46.0) % MCHC (31.0-37.0) g/dL RDW (11.5-15.5) % Sodium (137-145) mmol/L Chloride (98-107) mmol/L Carbon Dioxide (22-30) mmol/L BUN (7-17) mg/dL Creatinine (0.52-1.04) mg/dL POC Glucose (mg/dL) 214 H 257 H 136 H (75-99) mg/dL 08/08/20 08/08/20 08/08/20 Range/Units 10:34 10:34 11:38 RBC 2.99 L (3.80-5.40) m/uL Hgb 9.1 L (11.4-16.0) gm/dL Hct 29.8 L (34.0-46.0) % MCHC 30.6 L (31.0-37.0) g/dL RDW 16.8 H (11.5-15.5) % Sodium 135 L (137-145) mmol/L Chloride 96 L (98-107) mmol/L Carbon Dioxide 34 H (22-30) mmol/L BUN 90 H (7-17) mg/dL Creatinine 2.01 H (0.52-1.04) mg/dL POC Glucose (mg/dL) 100 H (75-99) mg/dL Microbiology - Last 24 Hours (Table) 08/07/20 20:17 Urine Culture - Preliminary Urine,Catheterized 08/06/20 20:19 Blood Culture - Preliminary Blood No Growth after 24 hours Diabetes panel 08/08/20 Range/Units 10:34 Sodium 135 L (137-145) mmol/L Potassium 3.7 (3.5-5.1) mmol/L Chloride 96 L (98-107) mmol/L Carbon Dioxide 34 H (22-30) mmol/L BUN 90 H (7-17) mg/dL Creatinine 2.01 H (0.52-1.04) mg/dL Glucose 99 (74-99) mg/dL Calcium 8.7 (8.4-10.2) mg/dL Calcium panel 08/08/20 Range/Units 10:34 Calcium 8.7 (8.4-10.2) mg/dL Pituitary panel 08/08/20 Range/Units 10:34 Sodium 135 L (137-145) mmol/L Potassium 3.7 (3.5-5.1) mmol/L Chloride 96 L (98-107) mmol/L Carbon Dioxide 34 H (22-30) mmol/L BUN 90 H (7-17) mg/dL Creatinine 2.01 H (0.52-1.04) mg/dL Glucose 99 (74-99) mg/dL Calcium 8.7 (8.4-10.2) mg/dL Adrenal panel 08/08/20 Range/Units 10:34 Sodium 135 L (137-145) mmol/L Potassium 3.7 (3.5-5.1) mmol/L Chloride 96 L (98-107) mmol/L Carbon Dioxide 34 H (22-30) mmol/L BUN 90 H (7-17) mg/dL Creatinine 2.01 H (0.52-1.04) mg/dL Glucose 99 (74-99) mg/dL Calcium 8.7 (8.4-10.2) mg/dL
--- NOTE | 2020-08-08 15:48 | P.PN ---
Subjective Progress Note Date: 08/08/20 CHIEF COMPLAINT: labile blood pressure HISTORY OF PRESENT ILLNESS: 08/07/2020 This is a 65-year-old female with a past medical history significant for paroxysmal atrial fibrillation, CVA with right-sided paralysis, diabetes mellitus, hypertension, and PE. 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 We have been asked to see the patient in consultation for labile blood pressure. Patient was transferred from [facility] for possible cellulitis. The patient was apparently hypotensive in route with EMS with a blood pressure of 60s/30s. Patients blood pressure this morning 150/100. Patient is a poor historian. She is only able to answer yes or no questions at the time of my examination. 08/08/2020 Patient examined this morning at the bedside. She denies chest pain or pressure. Denies shortness of breath. Patient's blood pressure running low 100s. Echocardiogram completed revealing ejection fraction 55-60%, trace mitral regurgitation, and trace tricuspid regurgitation. PHYSICAL EXAM: VITAL SIGNS: Reviewed. GENERAL: Well-developed in no acute distress. HEENT: Head is normocephalic. Pupils are equal, round. Sclerae anicteric. Mucous membranes of the mouth are moist. Neck supple. No JVD or thyromegaly LUNGS: Respirations even and unlabored. Lungs diminished bilaterally. HEART: Regular rate and rhythm. S1 and S2 heard. EXTREMITIES: Right side flaccid due to previous CVA. No clubbing or cyanosis. Peripheral pulses intact. Trace bilateral lower extremity edema ASSESSMENT: Right lower extremity cellulitis Hypotension, since resolved History of paroxysmal atrial fibrillation, on anticoagulation with Eliquis Hypertension Chronic kidney disease Diabetes mellitus, type II History of DVT/PE History of CVA with right hemiparesis and dysarthria PLAN: Discontinue Norvasc Discontinue IV fluids Monitor blood pressure Further recommendations pending patient's course Nurse practitioner note has been reviewed by physician. Signing provider agrees with the documented findings, assessment, and plan of care. Objective - Vital Signs Vital signs: Vital Signs Temp 97.6 F 08/08/20 08:00 Pulse 82 08/08/20 15:40 Resp 18 08/08/20 15:40 BP 109/52 08/08/20 15:40 Pulse Ox 98 08/08/20 15:40 Intake & Output 08/07/20 08/08/2008/08/21 18:59 06:59 18:59 Intake Total 1200 1000 375 Output Total 500 300 Balance 700 700 375 Weight 122.5 kg 122.5 kg Intake: IV 1000 0.9@100mls/hr 1000 Oral 1200 375 Output: Urine 500 300 Other: Voiding Method Indwelling Catheter Indwelling Catheter Indwelling Catheter # Bowel Movements 1 - Labs CBC & Chem 7: 08/08/20 10:34 08/08/20 10:34 Labs: Abnormal Lab Results - Last 24 Hours (Table) 08/07/20 08/07/20 08/08/20 Range/Units 16:43 20:13 06:05 RBC (3.80-5.40) m/uL Hgb (11.4-16.0) gm/dL Hct (34.0-46.0) % MCHC (31.0-37.0) g/dL RDW (11.5-15.5) % Sodium (137-145) mmol/L Chloride (98-107) mmol/L Carbon Dioxide (22-30) mmol/L BUN (7-17) mg/dL Creatinine (0.52-1.04) mg/dL POC Glucose (mg/dL) 214 H 257 H 136 H (75-99) mg/dL 08/08/20 08/08/20 08/08/20 Range/Units 10:34 10:34 11:38 RBC 2.99 L (3.80-5.40) m/uL Hgb 9.1 L (11.4-16.0) gm/dL Hct 29.8 L (34.0-46.0) % MCHC 30.6 L (31.0-37.0) g/dL RDW 16.8 H (11.5-15.5) % Sodium 135 L (137-145) mmol/L Chloride 96 L (98-107) mmol/L Carbon Dioxide 34 H (22-30) mmol/L BUN 90 H (7-17) mg/dL Creatinine 2.01 H (0.52-1.04) mg/dL POC Glucose (mg/dL) 100 H (75-99) mg/dL Microbiology - Last 24 Hours (Table) 08/07/20 20:17 Urine Culture - Preliminary Urine,Catheterized 08/06/20 20:19 Blood Culture - Preliminary Blood No Growth after 24 hours
--- NOTE | 2020-08-08 15:59 | CONS ---
CONSULTATION REASON FOR CONSULTATION: Renal failure. HISTORY OF PRESENT ILLNESS: Patient is a 65-year-old female with history of chronic kidney disease, NKF stage IV, with history of CVA, DVT, previous PE and diastolic heart failure. The patient at one time had decided on hospice care, but then she had changed her mind. Patient was transferred from [facility] due to cellulitis of right ankle. She has not had any significant fever or cough. Renal function appears to be at baseline. Serum creatinine is 2.0 mg/dL. Chest x-ray does not show any significant evidence of CHF. Previous creatinine has been 2.0 in 2019 as well. PAST MEDICAL HISTORY: Morbid obesity, CKD, stage 4, history of CVA, history of CHF, PE, gastroesophageal reflux disease. PAST SURGICAL HISTORY: Tonsillectomy, gastric tube placement previously. SOCIAL HISTORY: Negative for smoking, drug abuse or alcohol abuse. MEDICATIONS: Medications prior to admission are multiple. Please see list. ALLERGIES: ALLERGIES are MULTIPLE as well. Please see list. REVIEW OF SYSTEMS: As per HPI. Other systems negative. PHYSICAL EXAMINATION: Patient is comfortable, awake. She is not in any acute distress. Blood pressure is 102/50, heart rate 68 per minute. She is afebrile. EXAMINATION OF THE HEART: S1 and S2. EXAMINATION OF LUNGS: Bilateral breath sounds are heard. ABDOMEN: Soft, morbidly obese. Examination of lower extremities shows chronic skin changes. Right lower leg is currently wrapped. 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 Patient does not move her legs much. She is alert and oriented x3. LABS/IMAGING: Labs show hemoglobin 9.1, white cell count 7.1, sodium 135, potassium 3.7, creatinine 2.0, BUN 90, calcium 8.7. UA fairly unremarkable. Trace blood is noted. The patient has an indwelling Vera catheter. Chest x-ray does not show any evidence of infiltrates. Possible left basilar infiltrate on the new chest x-ray. ASSESSMENT: 1. Chronic kidney disease, stage 4, secondary to nephrosclerosis. No proteinuria noted on UA. Renal function at baseline. 2. History of diastolic heart failure, currently not in significant heart failure. May continue with the Zaroxolyn for now. Patient is normally on the Demadex as well, which is currently not on her med list, and it is okay to hold it for now. 3. Possible left lung pneumonia, maintained on ceftriaxone. 4. Right lower extremity ulcer, maintained on antibiotics. 5. Anemia of chronic disease. Will maintain patient on Aranesp and check iron profile if not done recently. PLAN: Add Aranesp. Check iron studies. Continue with Zaroxolyn. May continue to hold off on loop diuretics for now. Patient was on Demadex 20 mg daily at home, but we can hold off on it for now. Thank you for this consultation. Will continue to follow the patient with you during her hospitalization. MMODL / IJN: [id number] /
[2020-08-08 16:54] LABS: Glucose,Whole Blood 177 mg/dL (75-99)
[2020-08-08 20:28] LABS: Glucose,Whole Blood 249 mg/dL (75-99)
[2020-08-08] MEDS: traMADol 50 MG TAB PO PRN (21:13)
[2020-08-08] MEDS: MELATONIN 5 MG TABLET PO SCH (21:14)
[2020-08-08] MEDS: LATANOPROST 0.005% OPHTH DROPS 2.5 ML BTL BOTH EYES SCH (21:14)
[2020-08-08] MEDS: INSULIN DETEMIR (LEVEMIR) 100 UNIT/ML SYR SQ SCH (21:15)
--- NOTE | 2020-08-08 22:39 | PN ---
PROGRESS NOTE DATE OF SERVICE: 08/08/2020 REASON FOR FOLLOWUP: Lower extremity cellulitis and UTI. INTERIM HISTORY: The patient is currently afebrile. The patient is breathing comfortably. Denies having any chest pain or cough. No abdominal pain or pain in the lower extremity. PHYSICAL EXAMINATION: Blood pressure 109/58 with a pulse of 82, temperature is 97.6. She is 98% on 2 L nasal cannula. General description is a middle-aged female lying in bed in no distress. RESPIRATORY SYSTEM: Unlabored breathing. Clear to auscultation anteriorly. HEART: S1, S2. Regular rate and rhythm. ABDOMEN: Soft. No tenderness. LEGS: Swelling. Minimal warmth. No drainage. LABS: Hemoglobin is 9.1, white count 7.1. BUN of 90, creatinine 2.01. DIAGNOSTIC IMPRESSION AND PLAN: Patient with bilateral lower extremity cellulitis and urinary tract infection, covered with Rocephin; to continue while waiting for the culture to finalize and monitor clinical course closely. MMODL / IJN: [id number] /
[2020-08-09 02:46] LABS: % Iron Saturation 23.67 (12.00-45.00)
[2020-08-09] MEDS: ACETAMINOPHEN TAB 325 MG TAB PO SCH ×3 (06:17→21:18)
[2020-08-09] MEDS: DORZOLAMIDE-TIMOLOL 2.23%/0.68 10ML BTL BOTH EYES SCH ×2 (06:18→21:23)
[2020-08-09] MEDS: FLUTICASONE 50MCG/SPRAY NASAL 16GM EA NOSTRIL SCH (06:18)
[2020-08-09] MEDS: PREGABALIN 75 MG CAP PO SCH ×2 (06:22→18:51)
[2020-08-09] MEDS: ALPRAZolam 0.25 MG TAB PO SCH ×2 (06:23→18:51)
[2020-08-09] MEDS: APIXABAN 2.5 MG TABLET PO SCH ×2 (06:24→17:18)
[2020-08-09] MEDS: ONDANSETRON 4 MG TAB PO SCH ×4 (06:24→23:42)
[2020-08-09] MEDS: LORATADINE 10 MG TAB PO SCH (06:25)
[2020-08-09] MEDS: SERTRALINE 100 MG TAB PO SCH (06:25)
[2020-08-09 06:27] LABS: Glucose,Whole Blood 119 mg/dL (75-99)
[2020-08-09] MEDS: ALBUTEROL NEBULIZED 2.5 MG/3 ML INHALATION SCH ×4 (06:53→19:39)
[2020-08-09] MEDS: PANTOPRAZOLE 40 MG/10 ML VIAL IVP SCH ×2 (09:01→21:22)
[2020-08-09] MEDS: PIOGLITAZONE 30 MG TAB PO SCH (09:01)
[2020-08-09] MEDS: allopurinoL 100 MG TAB PO SCH (09:01)
[2020-08-09] MEDS: FLUOROMETHOLONE 0.1% OPHTH DROPS 5 ML BTL RIGHT EYE SCH (09:02)
[2020-08-09 12:01] LABS: Glucose,Whole Blood 143 mg/dL (75-99)
[2020-08-09] MEDS: POTASSIUM CHLORIDE ER 10 MEQ TAB.ER.PRT PO SCH (13:07)
[2020-08-09] MEDS: FUROSEMIDE 10 MG/ML 4 ML VIAL IV SCH ×2 (13:07→21:22)
--- NOTE | 2020-08-09 13:27 | P.PN ---
Subjective Progress Note Date: 08/09/20 CHIEF COMPLAINT: labile blood pressure HISTORY OF PRESENT ILLNESS: 08/07/2020 This is a 65-year-old female with a past medical history significant for paroxysmal atrial fibrillation, CVA with right-sided paralysis, diabetes mellitus, hypertension, and PE. 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 We have been asked to see the patient in consultation for labile blood pressure. Patient was transferred from [facility] for possible cellulitis. The patient was apparently hypotensive in route with EMS with a blood pressure of 60s/30s. Patients blood pressure this morning 150/100. Patient is a poor historian. She is only able to answer yes or no questions at the time of my examination. 08/08/2020 Patient examined this morning at the bedside. She denies chest pain or pressure. Denies shortness of breath. Patient's blood pressure running low 100s. Echocardiogram completed revealing ejection fraction 55-60%, trace mitral regurgitation, and trace tricuspid regurgitation. 08/09/2020 Patient examined at the bedside. She denies chest pain or pressure. Denies shortness of breath. Patient had an isolated high blood pressure of 160/89. Previous blood pressure 117/47. PHYSICAL EXAM: VITAL SIGNS: Reviewed. GENERAL: Well-developed in no acute distress. HEENT: Head is normocephalic. Pupils are equal, round. Sclerae anicteric. Mucous membranes of the mouth are moist. Neck supple. No JVD or thyromegaly LUNGS: Respirations even and unlabored. Lungs diminished bilaterally. HEART: Regular rate and rhythm. S1 and S2 heard. EXTREMITIES: Right side flaccid due to previous CVA. No clubbing or cyanosis. Peripheral pulses intact. 2+ bilateral lower extremity edema ASSESSMENT: Right lower extremity cellulitis Hypotension, since resolved History of paroxysmal atrial fibrillation, on anticoagulation with Eliquis Hypertension Chronic kidney disease Diabetes mellitus, type II History of DVT/PE History of CVA with right hemiparesis and dysarthria PLAN: No adjustments to cardiac medications at this time. Monitor blood pressure Further recommendations pending patient's course Nurse practitioner note has been reviewed by physician. Signing provider agrees with the documented findings, assessment, and plan of care. Objective - Vital Signs Vital signs: Vital Signs Temp 98.7 F 08/09/20 10:08 Pulse 68 08/09/20 11:59 Resp 18 08/09/20 10:08 BP 160/89 08/09/20 10:08 Pulse Ox 100 08/09/20 10:08 Intake & Output 08/08/20 08/09/20 08/09/20 18:59 06:59 18:59 Intake Total 1022 50 180 Output Total 750 100 Balance 1022 -700 80 Weight 122.5 kg 126 kg Intake: IV 50 50 [id number] 2 gm In 50 50 Sodium Chloride 0.9% 50 ml @ 100 mls/hr IVPB Q24H [facility] Rx#:[id number] Oral 972 180 Output: Urine 750 100 Other: Voiding Method Indwelling Catheter Indwelling Catheter Indwelling Catheter - Labs CBC & Chem 7: 08/08/20 10:34 08/08/20 10:34 Labs: Abnormal Lab Results - Last 24 Hours (Table) 08/08/20 08/08/20 08/08/20 Range/Units 10:34 16:49 20:26 POC Glucose (mg/dL) 177 H 249 H (75-99) mg/dL Iron 40 L (50-170) ug/dL TIBC 169 L (228-460) ug/dL 08/09/20 08/09/20 Range/Units 06:26 12:00 POC Glucose (mg/dL) 119 H 143 H (75-99) mg/dL Iron (50-170) ug/dL TIBC (228-460) ug/dL Microbiology - Last 24 Hours (Table) 08/06/20 20:19 Blood Culture - Preliminary Blood No Growth after 48 hours 08/07/20 20:17 Urine Culture - Final Urine,Catheterized
[2020-08-09 14:14] LABS: Calcium 8.9 mg/dL (8.4-10.2); Potassium 3.9 mmol/L (3.5-5.1)
--- NOTE | 2020-08-09 14:35 | PN ---
PROGRESS NOTE Patient is seen for followup for chronic kidney disease NKF stage 4. She was admitted to the hospital with concern for right lower extremity ulcer, cellulitis and concern for volume overload. The patient's chest x-ray was clear. Therefore she was not started on IV diuretics yesterday. Her respiratory status appears comfortable. However, she has significant edema. This seems to have increased since yesterday. Renal function is at baseline and patient will be started on IV diuretics. She is maintained on antibiotics for the cellulitis. PHYSICAL EXAMINATION: On examination today, blood pressure was 117/47, heart rate 72 per minute. She is afebrile. EXAMINATION OF THE HEART: S1, S2. EXAMINATION OF THE LUNGS: Bilateral breath sounds are heard. Abdomen is soft, obese, nontender. Examination of lower extremities shows edema 2+ bilaterally with chronic skin changes and edema noted in the right lower extremity. 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 She is moving her arms. She answers simple questions. LABS: Labs are not available from today. Serum creatinine was 2.0 yesterday, potassium of 3.7 yesterday. Hemoglobin 9.1 g/dL. ASSESSMENT: 1. Chronic kidney disease NKF stage 4. Renal function is currently stable and at baseline etiology is nephrosclerosis. No evidence of proteinuria. 2. Lower extremity edema which is chronic. Patient's chest x-ray did not show significant pulmonary vascular congestion. However, given the edema, I will start her on IV diuretics. 3. Right lower extremity cellulitis. 4. Anemia of chronic disease, maintained on Aranesp. 5. Type 2 diabetes. 6. Previous history of pulmonary embolism. 7. History of cerebrovascular accident with right hemiparesis. 8. Paroxysmal atrial fibrillation, maintained on Eliquis, rate is controlled. PLAN: Start IV Lasix. Continue with Zaroxolyn. Check daily weights and repeat labs in a.m. MMODL / IJN: [id number] /
[2020-08-09 16:58] LABS: Glucose,Whole Blood 207 mg/dL (75-99)
--- NOTE | 2020-08-09 18:20 | P.PN ---
Subjective This is a pleasant 65 years old female with past medical history of coronary artery disease, heart failure, CVA with right hemiparesis, diabetes mellitus, history of deep venous thrombosis and pulmonary embolism on Eliquis, chronic kidney disease, GERD, hypertension.Patient was transferred from [facility]. I reviewed the records from [facility], I couldn't see a note from emergency room physician Dr. Lamas [facility]. Patient looks awake and alert and has good attention span and follows commands, she has dysarthria and a light in answering question which looks chronic. She states that she lives at home when asked is a half-way she states yesterday. She is disoriented to time, place and person. She did not complain from anything when asked however during exam she pointed to her right ankle as hurting and it was tender, there was no signs of cellulitis in the right ankle but there is blackish scar possible ulcer, there was more redness and swelling in the right leg compared to the left side however she denies tenderness or pain On reviewing the records from [facility] showing glucose of 159, CPKs 47, troponin is mildly elevated at 0.04. Urinalysis shows specific gravity less than 1.005. Blood is 2+. No signs of infection Magnesium is normal at 1.6 and phosphorus normal at 3.2, pro-, calcitonin is elevated at 0.5 lactic acid is normal at 1.9 WBC slightly elevated at 10.9 K with reference range 4.0-10.5. Hemoglobin is 10.2, platelet is normal at 180 7K. BMP showing normal sodium at 133 and potassium 4.2. Creatinine is elevated at 2.0 AST is normal at 42 and ALT normal at 30. Total bilirubin is normal at 0.6. Chest x-ray: Showing cardiomegaly and low lung volumes without acute pulmonary process CT of the abdomen and pelvis without contrast reported: No bowel obstruction. No acute findings added to find on noncontrast study per report EKG showing normal sinus rhythm at 82 with QTC [address]-T changes on EKG Currently her vitals are stable, afebrile. Labs showing no leukocytosis with WBC is 8.5. Hemoglobin is 10.3 which is at baseline. INR is 0.9. Sodium 1 potassium are within the reference range. Creatinine at baseline at 2.2. Glucose control. Liver enzymes AST and ALT are not elevated. Urine analysis is suspicious for infection with small leukocyte esterase Patient was transferred to [address] [place] [address] for hypotension, A team was called and patient received IV fluids and antibiotic. She received 1 L of normal saline and placed on 100 mL per hour She was started on ceftriaxone Also patient was noted to be ALLERGIC to penicillin, sulfa, codeine and IV dye 08/08/2020 Patient lying in bed, looks lethargic similar to yesterday which looks close to her baseline, she has right hemiparesis, which is chronic. After still in place. Her right leg is a little bit better, not warm today. Hemodynamically stable. Labs are stable and creatinine is stable at 2.0, sugar is controlled. Troponin is negative less than 0.012. Chest x-ray unable to exclude patchy atelectasis or infiltrate developing in the periphery of the left base and retrocardiac regions. Doppler of the lower extremity showing no deep venous thrombosis Echocardiogram showed ejection fraction 55-60% Patient remains on ceftriaxone per ID team recommendation for her right leg cell ulitis and UTI. Vera catheter remains in place. Home medications doxycycline was held Vascular surgery was consulted for her right ankle eschar wound Swallow eval: There were no overt s/s of aspiration/penetration exhibited with any trials presented. Recommend initiation of Dysphagia III - chopped texture diet and thin liquids, starws okm, general aspiration precautions, and medications whole with liquids. 08/09/2020 Patient is clinically looks the same, she is with baseline right hemipa resis and dysarthria, she is obese. No specific complaints. Her right leg selective is significantly improved. She has Vera catheter in a Place.She is very mildly lethargic compared to yesterday. She is saturating 99% on 2 L oxygen Labs showing slight improvement of creatinine 2.2 down to 1.95. However she is swelling and fluid overloaded. IV fluids were stopped and Lasix 40 mg IV every 8 hours was started with close monitoring of her creatinine. Her legs are significantly swollen and they agree with IV Lasix Also we will check for swallow evaluation to rule out any aspiration, given her findings of the chest x-ray of atelectasis in the retrocardiac and left lung base Objective - Vital Signs Vital signs: Vital Signs Temp 98.7 F 08/09/20 10:08 Pulse 68 08/09/20 11:59 Resp 18 08/09/20 10:08 BP 160/89 08/09/20 10:08 Pulse Ox 100 08/09/20 10:08 Intake & Output 08/08/20 08/09/20 08/09/20 18:59 06:59 18:59 Intake Total 1022 50 180 Output Total 750 100 Balance 1022 -700 80 Weight 122.5 kg 126 kg Intake: IV 50 50 cefTRIAXone 2 gm In 50 50 Sodium Chloride 0.9% 50 ml @ 100 mls/hr IVPB Q24H [facility] [place] Rx#:[id number] Oral 972 180 Output: Urine 750 100 Other: Voiding Method Indwelling Catheter Indwelling Catheter Indwelling Catheter - Exam -GENERAL: The patient is awake and alert and follows commands, not in any acute distress. Obese HEENT: Pupils are round and equally reacting to light. EOMI. No scleral icterus. No conjunctival pallor. Normocephalic, atraumatic. No pharyngeal erythema. No thyromegaly. CARDIOVASCULAR: S1 and S2 present. No murmurs, rubs, or gallops. PULMONARY: Chest is clear to auscultation, no wheezing or crackles. ABDOMEN: Soft, nontender, nondistended, normoactive bowel sounds. No palpable organomegaly. MUSCULOSKELETAL: No joint swelling or deformity. -EXTREMITIES: No cyanosis, clubbing, or pedal edema. Right leg is more warm than the left and more pinkish and slightly more swollen. No pain or tenderness of the leg however she has tender eschar, possible ulcer of the right ankle -NEUROLOGICAL: awake and alert and follows commands. She is disoriented to time, place and person. Cranial nerves are grossly intact, Except dysarthria which looks chronic. Right hemiparesis (chronic) SKIN: No rashes. No petechiae - Labs CBC & Chem 7: 08/08/20 10:34 08/09/20 13:38 Labs: Abnormal Lab Results - Last 24 Hours (Table) 08/08/20 08/08/20 08/08/20 Range/Units 10:34 16:49 20:26 POC Glucose (mg/dL) 177 H 249 H (75-99) mg/dL Iron 40 L (50-170) ug/dL TIBC 169 L (228-460) ug/dL 08/09/20 08/09/20 Range/Units 06:26 12:00 POC Glucose (mg/dL) 119 H 143 H (75-99) mg/dL Iron (50-170) ug/dL TIBC (228-460) ug/dL Microbiology - Last 24 Hours (Table) 08/06/20 20:19 Blood Culture - Preliminary Blood No Growth after 48 hours 08/07/20 20:17 Urine Culture - Final Urine,Catheterized Assessment and Plan Assessment: Right lower extremity cellulitis, Versus acute urinary tract infection. With elevated pro-calcitonin Right ankle necrotic wound Chronic kidney disease, stage IV. Secondary to diabetic nephropathy. With fluid overload Hypotension, present on admission. Improved. mildly elevated troponin, cardiology team on the case from, no further workup Metabolic encephalopathy secondary to above. Resolved Type 2 diabetes mellitus History of coronary artery disease Chronic heart failure history of deep venous thrombosis and pulmonary embolism on Eliquis History of CVA with right hemiparesis and dysarthria History of hypertension History of anxiety and depression, not an active issue Plan: This is a pleasant 65 years old female who presents with right leg cellulitis and hypotension with slightly up troponin. Continue with ceftriaxone. Follow- up urine culture. Follow-up infectious disease recommendation. Cardiology team on the case. Continue with IV Lasix. 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 Continue same treatment. Continue with symptomatic treatment. Resume home medication. Monitor lytes and vitals. DVT and GI prophylaxis. Further recommendations depends on the clinical course of the patient DVT prophylaxis: on Eliquis GI prophylaxis: On PPI, Protonix Prognosis is guarded
[2020-08-09 20:00] LABS: Glucose,Whole Blood 244 mg/dL (75-99)
[2020-08-09] MEDS: INSULIN DETEMIR (LEVEMIR) 100 UNIT/ML SYR SQ SCH (21:22)
[2020-08-09] MEDS: MELATONIN 5 MG TABLET PO SCH (21:22)
[2020-08-09] MEDS: LATANOPROST 0.005% OPHTH DROPS 2.5 ML BTL BOTH EYES SCH (21:23)
--- NOTE | 2020-08-09 22:36 | PN ---
PROGRESS NOTE DATE OF SERVICE: 08/09/2020 REASON FOR FOLLOWUP: Bilateral lower extremity cellulitis and UTI. INTERVAL HISTORY: The patient is currently afebrile. The patient is breathing comfortably. No chest pain, shortness of breath or cough or abdominal pain or pain to the lower extremity. No diarrhea. PHYSICAL EXAMINATION: Blood pressure /60 with a pulse of 101, temperature 98.6. She is 99% on 2 L nasal cannula. General description is a middle-aged female lying in bed in no distress. RESPIRATORY SYSTEM: Unlabored breathing with decreased breath sounds at the base. No wheeze. HEART: S1, S2. Regular rate and rhythm. ABDOMEN: Soft. No tenderness. LABS: BUN of 87, creatinine 1.95. Blood culture negative. DIAGNOSTIC IMPRESSION AND PLAN: Patient with bilateral extremity cellulitis and urinary tract infection. The patient is currently on Rocephin 2 grams daily; to continue. Transition to oral antibiotic on discharge. Continue with supportive care. MMODL / IJN: [id number] /
[2020-08-10] MEDS: ACETAMINOPHEN TAB 325 MG TAB PO SCH ×3 (06:04→21:09)
[2020-08-10] MEDS: FUROSEMIDE 10 MG/ML 4 ML VIAL IV SCH ×3 (06:09→21:07)
[2020-08-10] MEDS: FLUTICASONE 50MCG/SPRAY NASAL 16GM EA NOSTRIL SCH (06:10)
[2020-08-10] MEDS: LORATADINE 10 MG TAB PO SCH (06:10)
[2020-08-10] MEDS: metOLazone 5 MG TAB PO SCH (06:10)
[2020-08-10] MEDS: SERTRALINE 100 MG TAB PO SCH (06:10)
[2020-08-10] MEDS: DORZOLAMIDE-TIMOLOL 2.23%/0.68 10ML BTL BOTH EYES SCH ×2 (06:10→21:08)
[2020-08-10] MEDS: APIXABAN 2.5 MG TABLET PO SCH ×2 (06:10→17:48)
[2020-08-10] MEDS: PREGABALIN 75 MG CAP PO SCH ×2 (06:10→17:48)
[2020-08-10] MEDS: ONDANSETRON 4 MG TAB PO SCH ×3 (06:10→17:48)
[2020-08-10] MEDS: ALPRAZolam 0.25 MG TAB PO SCH ×2 (06:10→17:48)
[2020-08-10 06:17] LABS: Glucose,Whole Blood 102 mg/dL (75-99)
[2020-08-10] MEDS: ALBUTEROL NEBULIZED 2.5 MG/3 ML INHALATION SCH ×4 (07:44→19:47)
[2020-08-10] MEDS: PIOGLITAZONE 30 MG TAB PO SCH (08:25)
[2020-08-10] MEDS: PANTOPRAZOLE 40 MG/10 ML VIAL IVP SCH ×2 (08:25→21:07)
[2020-08-10] MEDS: allopurinoL 100 MG TAB PO SCH (08:26)
[2020-08-10] MEDS: traMADol 50 MG TAB PO PRN (08:26)
[2020-08-10] MEDS: FLUOROMETHOLONE 0.1% OPHTH DROPS 5 ML BTL RIGHT EYE SCH (08:29)
--- NOTE | 2020-08-10 08:59 | XR ---
EXAMINATION TYPE: XR chest 1V portable DATE OF EXAM: 08/10/2020 HISTORY: Shortness of breath. COMPARISON: 08/08/2020 TECHNIQUE: Single view of the chest is submitted. FINDINGS: Demonstrated are scattered senescent parenchymal change. Patchy perihilar and basilar infiltrates may reflect pneumonia. The heart is stable. Hilar and mediastinal structures are within normal limits. Degenerative changes are seen of the dorsal spine. IMPRESSION: 1. Patchy perihilar and basilar infiltrates may reflect pneumonia.
[2020-08-10 09:46] LABS: Calcium 9.3 mg/dL (8.4-10.2); Magnesium 1.6 mg/dL (1.6-2.3); Potassium 4.5 mmol/L (3.5-5.1)
[2020-08-10] MEDS: METOPROLOL TARTRATE 12.5 MG TAB PO SCH ×2 (11:06→21:07)
[2020-08-10] MEDS: POTASSIUM CHLORIDE ER 10 MEQ TAB.ER.PRT PO SCH (11:06)
[2020-08-10 12:20] LABS: Glucose,Whole Blood 191 mg/dL (75-99)
--- NOTE | 2020-08-10 13:15 | P.PN ---
Subjective Progress Note Date: 08/10/20 CHIEF COMPLAINT: labile blood pressure HISTORY OF PRESENT ILLNESS: 08/07/2020 This is a 65-year-old female with a past medical history significant for paroxysmal atrial fibrillation, CVA with right-sided paralysis, diabetes mellitus, hypertension, and PE. It is unknown if the patient follows with a mason helper. We have been asked to see the patient in consultation for labile blood pressure. Patient was transferred from [facility] for possible cellulitis. The patient was apparently hypotensive in route with EMS with a blood pressure of 60s/30s. Patients blood pressure this morning 150/100. Patient is a poor historian. She is only able to answer yes or no questions at the time of my examination. 08/08/2020 Patient examined this morning at the bedside. She denies chest pain or pressure. Denies shortness of breath. Patient's blood pressure running low 100s. Echocardiogram completed revealing ejection fraction 55-60%, trace mitral regurgitation, and trace tricuspid regurgitation. 08/09/2020 Patient examined at the bedside. She denies chest pain or pressure. Denies shortness of breath. Patient had an isolated high blood pressure of 160/89. Previous blood pressure 117/47. 08/10/2020 Patient examined at the bedside. She denies chest pain or pressure. Denies shortness of breath. Blood pressure 115/67. Patient is mildly tachycardic this morning. PHYSICAL EXAM: VITAL SIGNS: Reviewed. GENERAL: Well-developed in no acute distress. HEENT: Head is normocephalic. Pupils are equal, round. Sclerae anicteric. Mucous membranes of the mouth are moist. Neck supple. No JVD or thyromegaly LUNGS: Respirations even and unlabored. Lungs diminished bilaterally. HEART: Regular rate and rhythm. S1 and S2 heard. EXTREMITIES: Right side flaccid due to previous CVA. No clubbing or cyanosis. Peripheral pulses intact. 2+ bilateral lower extremity edema ASSESSMENT: Right lower extremity cellulitis Hypotension, since resolved Sinus tachycardia History of paroxysmal atrial fibrillation, on anticoagulation with Eliquis Hypertension Chronic kidney disease Diabetes mellitus, type II History of DVT/PE History of CVA with right hemiparesis and dysarthria PLAN: Continue IV Lasix per nephrology Continue to monitor blood pressure Begin low-dose metoprolol: 12.5 mg twice a day Further recommendations pending patient's course Nurse practitioner note has been reviewed by physician. Signing provider agrees with the documented findings, assessment, and plan of care. Objective - Vital Signs Vital signs: Vital Signs Temp 99.4 F 08/10/20 08:00 Pulse 80 08/10/20 11:04 Resp 22 08/10/20 08:00 BP 115/67 08/10/20 08:00 Pulse Ox 94 L 08/10/20 08:00 Intake & Output 08/09/20 08/10/20 08/10/20 18:59 06:59 18:59 Intake Total 600 240 Output Total 600 1075 425 Balance 0 -1075 -185 Weight 124 kg Intake: Oral 600 240 Output: Urine 600 1075 425 Other: Voiding Method Indwelling Catheter Indwelling Catheter Indwelling Catheter # Bowel Movements 1 1 - Labs CBC & Chem 7: 08/08/20 10:34 08/10/20 07:48 Labs: Abnormal Lab Results - Last 24 Hours (Table) 08/09/20 08/09/20 08/09/20 Range/Units 13:38 16:52 19:59 Sodium 134 L (137-145) mmol/L Chloride 96 L (98-107) mmol/L Carbon Dioxide 31 H (22-30) mmol/L BUN 87 H (7-17) mg/dL Creatinine 1.95 H (0.52-1.04) mg/dL Glucose 168 H (74-99) mg/dL POC Glucose (mg/dL) 207 H 244 H (75-99) mg/dL 08/10/20 08/10/20 08/10/20 Range/Units 06:14 07:48 12:18 Sodium (137-145) mmol/L Chloride 97 L (98-107) mmol/L Carbon Dioxide 32 H (22-30) mmol/L BUN 89 H (7-17) mg/dL Creatinine 1.94 H (0.52-1.04) mg/dL Glucose 100 H (74-99) mg/dL POC Glucose (mg/dL) 102 H 191 H (75-99) mg/dL Microbiology - Last 24 Hours (Table) 08/06/20 20:19 Blood Culture - Preliminary Blood No Growth after 72 hours
[2020-08-10 14:00] VITALS: BMI 50.0
--- NOTE | 2020-08-10 15:01 | PN ---
PROGRESS NOTE DATE OF SERVICE: 08/10/2020 REASON FOR FOLLOWUP: Lower extremity cellulitis and UTI. INTERVAL HISTORY: The patient is currently afebrile. The patient is breathing comfortably slightly more awake and alert. Denies having any chest pain or cough. No abdominal pain or diarrhea. PHYSICAL EXAMINATION: Blood pressure 115/67, pulse of 84, temperature 99.4. She is 94% 2 L nasal cannula. General description is a middle-aged female lying in bed in no distress. RESPIRATORY SYSTEM: Unlabored breathing, clear to auscultation anteriorly. HEART: S1, S2. Regular rate and rhythm. ABDOMEN: Soft, no tenderness. Legs did have some swelling. No significant redness or drainage. LABS: BUN of 89, creatinine 1.94. Chest x-ray with some perihilar infiltrate. DIAGNOSTIC IMPRESSION AND PLAN: The patient admitted to the hospital with mental status changes, weakness, initial concern for lower extremity cellulitis and urinary tract infection. Culture has been negative so far. Chest x-ray now showing evidence of some perihilar infiltrate. The patient is covered with Rocephin, will continue for now and monitor clinical course closely. MMODL / IJN: [id number] /
--- NOTE | 2020-08-10 16:37 | PN ---
PROGRESS NOTE Patient is seen for followup for chronic kidney disease and volume overload. She is currently maintained on IV Lasix. On initial admission patient did not appear to be significantly volume-overloaded; however, she gained weight and was noted to have increased swelling of her lower extremities. The patient is currently maintained on IV Lasix. She has lost some weight since yesterday and her 24-hour urine output is documented at 1.6 L. The patient denies any significant respiratory symptoms. No complaints of cough or chest pains. Her chest x-ray did not show any significant pulmonary vascular congestion. Serum creatinine has been at baseline around 2 mg/dL. PHYSICAL EXAMINATION: On examination today, patient is comfortable, awake, not in any acute distress. Blood pressure 116/48, heart rate 81 per minute. She is afebrile. EXAMINATION OF THE HEART: S1 and S2. EXAMINATION OF LUNGS: Bilateral breath sounds are heard. Decreased breath sounds at bases. ABDOMEN: Soft, non-tender, morbidly obese. Examination of lower extremities edema 2+ bilaterally with chronic skin changes with significant stretching of the skin noted, lower extremities, and some erythema in the right lower extremity. 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 LABS: Sodium 137, potassium 4.5, chloride 97, BUN 89, creatinine 1.94. ASSESSMENT: 1. Chronic kidney disease secondary to nephrosclerosis; renal function at baseline, stage IV. 2. Volume overload, maintained on IV Lasix. Patient's weight has decreased. We will continue to diurese her. 3. Right lower extremity cellulitis, maintained on antibiotics, being followed by Infectious Disease. 4. Paroxysmal atrial fibrillation, maintained on Eliquis. 5. History of cerebrovascular accident with right hemiparesis. PLAN: Continue with IV Lasix. Repeat labs in a.m. Maintain daily weights. Replace potassium. MMODL / IJN: [id number] /
[2020-08-10 17:03] LABS: Glucose,Whole Blood 249 mg/dL (75-99)
[2020-08-10 20:13] LABS: Glucose,Whole Blood 277 mg/dL (75-99)
[2020-08-10] MEDS: LATANOPROST 0.005% OPHTH DROPS 2.5 ML BTL BOTH EYES SCH (21:06)
[2020-08-10] MEDS: INSULIN DETEMIR (LEVEMIR) 100 UNIT/ML SYR SQ SCH (21:06)
[2020-08-10] MEDS: MELATONIN 5 MG TABLET PO SCH (21:07)
[2020-08-11] MEDS: ONDANSETRON 4 MG TAB PO SCH ×4 (01:13→17:35)
--- NOTE | 2020-08-11 03:11 | P.PN ---
Subjective This is a pleasant 65 years old female with past medical history of coronary artery disease, heart failure, CVA with right hemiparesis, diabetes mellitus, history of deep venous thrombosis and pulmonary embolism on Eliquis, chronic kidney disease, GERD, hypertension.Patient was transferred from [facility]. I reviewed the records from [facility], I couldn't see a note from emergency room physician Dr. Lamas [facility]. Patient looks awake and alert and has good attention span and follows commands, she has dysarthria and a light in answering question which looks chronic. She states that she lives at home when asked is a jail she states yesterday. She is disoriented to time, place and person. She did not complain from anything when asked however during exam she pointed to her right ankle as hurting and it was tender, there was no signs of cellulitis in the right ankle but there is blackish scar possible ulcer, there was more redness and swelling in the right leg compared to the left side however she denies tenderness or pain On reviewing the records from [facility] showing glucose of 159, CPKs 47, troponin is mildly elevated at 0.04. Urinalysis shows specific gravity less than 1.005. Blood is 2+. No signs of infection Magnesium is normal at 1.6 and phosphorus normal at 3.2, pro-, calcitonin is elevated at 0.5 lactic acid is normal at 1.9 WBC slightly elevated at 10.9 K with reference range 4.0-10.5. Hemoglobin is 10.2, platelet is normal at 180 7K. BMP showing normal sodium at 133 and potassium 4.2. Creatinine is elevated at 2.0 AST is normal at 42 and ALT normal at 30. Total bilirubin is normal at 0.6. Chest x-ray: Showing cardiomegaly and low lung volumes without acute pulmonary process CT of the abdomen and pelvis without contrast reported: No bowel obstruction. No acute findings added to find on noncontrast study per report EKG showing normal sinus rhythm at 82 with QTC [address]-T changes on EKG Currently her vitals are stable, afebrile. Labs showing no leukocytosis with WBC is 8.5. Hemoglobin is 10.3 which is at baseline. INR is 0.9. Sodium 1 potassium are within the reference range. Creatinine at baseline at 2.2. Glucose control. Liver enzymes AST and ALT are not elevated. Urine analysis is suspicious for infection with small leukocyte esterase Patient was transferred to [address] [place] [address] for hypotension, A team was called and patient received IV fluids and antibiotic. She received 1 L of normal saline and placed on 100 mL per hour She was started on ceftriaxone Also patient was noted to be ALLERGIC to penicillin, sulfa, codeine and IV dye 08/08/2020 Patient lying in bed, looks lethargic similar to yesterday which looks close to her baseline, she has right hemiparesis, which is chronic. After still in place. Her right leg is a little bit better, not warm today. Hemodynamically stable. Labs are stable and creatinine is stable at 2.0, sugar is controlled. Troponin is negative less than 0.012. Chest x-ray unable to exclude patchy atelectasis or infiltrate developing in the periphery of the left base and retrocardiac regions. Doppler of the lower extremity showing no deep venous thrombosis Echocardiogram showed ejection fraction 55-60% Patient remains on ceftriaxone per ID team recommendation for her right leg cell ulitis and UTI. Vera catheter remains in place. Home medications doxycycline was held Vascular surgery was consulted for her right ankle eschar wound Swallow eval: There were no overt s/s of aspiration/penetration exhibited with any trials presented. Recommend initiation of Dysphagia III - chopped texture diet and thin liquids, starws okm, general aspiration precautions, and medications whole with liquids. 08/09/2020 Patient is clinically looks the same, she is with baseline right hemipa resis and dysarthria, she is obese. No specific complaints. Her right leg selective is significantly improved. She has Vera catheter in a Place.She is very mildly lethargic compared to yesterday. She is saturating 99% on 2 L oxygen Labs showing slight improvement of creatinine 2.2 down to 1.95. However she is swelling and fluid overloaded. IV fluids were stopped and Lasix 40 mg IV every 8 hours was started with close monitoring of her creatinine. Her legs are significantly swollen and they agree with IV Lasix Also we will check for swallow evaluation to rule out any aspiration, given her findings of the chest x-ray of atelectasis in the retrocardiac and left lung base 08/10/2020 This is a pleasant 65 years old female with past medical history of right hemiparesis secondary to stroke and dysarthria who presents with infection secondary to cellulitis of the right leg more than the left, UTI and also there was suspicion for pneumonitis which was treated with ceftriaxone per infectious disease see what the case and patient looks improving including the right leg, even she looks better compared to the sister However patient is also with pulmonary congestion and bilateral leg edema. she kept on IV Lasix for fluid overload secondary to chronic kidney disease also patient was receiving of fluid on admission the due to low blood pressure which is now stable, antihypertensive medication and IV fluids are discontinued, metoprolol was started by mosquito sprayer today at 12.5 mg patient is with COPD and creatinine is stable at 1.9 Patient also was a bit more sleepy today Objective - Vital Signs Vital signs: Vital Signs Temp 99.1 F 08/10/20 14:51 Pulse 81 08/10/20 14:51 Resp 18 08/10/20 14:51 BP 116/48 08/10/20 14:51 Pulse Ox 96 08/10/20 14:51 Intake & Output 08/09/20 08/10/20 08/10/20 18:59 06:59 18:59 Intake Total 600 480 Output Total 600 1075 425 Balance 0 -1075 55 Weight 124 kg 124 kg Intake: Oral 600 480 Output: Urine 600 1075 425 Other: Voiding Method Indwelling Catheter Indwelling Catheter Indwelling Catheter # Bowel Movements 1 1 - Exam -GENERAL: The patient is awake and alert and follows commands, not in any acute distress. Obese HEENT: Pupils are round and equally reacting to light. EOMI. No scleral icterus. No conjunctival pallor. Normocephalic, atraumatic. No pharyngeal erythema. No thyromegaly. CARDIOVASCULAR: S1 and S2 present. No murmurs, rubs, or gallops. PULMONARY: Chest is clear to auscultation, no wheezing or crackles. ABDOMEN: Soft, nontender, nondistended, normoactive bowel sounds. No palpable organomegaly. MUSCULOSKELETAL: No joint swelling or deformity. -EXTREMITIES: No cyanosis, clubbing, or pedal edema. Right leg is more warm than the left and more pinkish and slightly more swollen. No pain or tenderness of the leg however she has tender eschar, possible ulcer of the right ankle -NEUROLOGICAL: awake and alert and follows commands. She is disoriented to time, place and person. Cranial nerves are grossly intact, Except dysarthria which looks chronic. Right hemiparesis (chronic) SKIN: No rashes. No petechiae - Labs CBC & Chem 7: 08/08/20 10:34 08/10/20 07:48 Labs: Abnormal Lab Results - Last 24 Hours (Table) 08/09/20 08/09/20 08/10/20 Range/Units 16:52 19:59 06:14 Chloride (98-107) mmol/L Carbon Dioxide (22-30) mmol/L BUN (7-17) mg/dL Creatinine (0.52-1.04) mg/dL Glucose (74-99) mg/dL POC Glucose (mg/dL) 207 H 244 H 102 H (75-99) mg/dL 08/10/20 08/10/20 Range/Units 07:48 12:18 Chloride 97 L (98-107) mmol/L Carbon Dioxide 32 H (22-30) mmol/L BUN 89 H (7-17) mg/dL Creatinine 1.94 H (0.52-1.04) mg/dL Glucose 100 H (74-99) mg/dL POC Glucose (mg/dL) 191 H (75-99) mg/dL Microbiology - Last 24 Hours (Table) 08/06/20 20:19 Blood Culture - Preliminary Blood No Growth after 72 hours Assessment and Plan Assessment: Right lower extremity cellulitis, Versus acute urinary tract infection. Fluid overload secondary to kidney disease Chronic kidney disease, stage IV. Secondary to diabetic nephropathy. Hypotension, present on admission. Improved. mildly elevated troponin, cardiology team on the case from, no further workup Metabolic encephalopathy secondary to above. Resolved Type 2 diabetes mellitus History of coronary artery disease Chronic heart failure history of deep venous thrombosis and pulmonary embolism on Eliquis History of CVA with right hemiparesis and dysarthria History of hypertension History of anxiety and depression, not an active issue Plan: This is a pleasant 65 years old female who presents with right leg cellulitis and hypotension with slightly up troponin. Continue with ceftriaxone. Follow- up infectious disease recommendation. Cardiology team on the case. Continue with IV Lasix. Academic Affairs Coordinator is consult Labs and medication were reviewed.. Continue same treatment. Continue with symptomatic treatment. Resume home medication. Monitor lytes and vitals. DVT and GI prophylaxis. Further recommendations depends on the clinical course of the patient DVT prophylaxis: on Eliquis GI prophylaxis: On PPI, Protonix Prognosis is guarded
[2020-08-11 06:19] LABS: Glucose,Whole Blood 89 mg/dL (75-99)
[2020-08-11] MEDS: APIXABAN 2.5 MG TABLET PO SCH ×2 (06:59→17:35)
[2020-08-11] MEDS: PREGABALIN 75 MG CAP PO SCH ×2 (06:59→22:37)
[2020-08-11] MEDS: FUROSEMIDE 10 MG/ML 4 ML VIAL IV SCH ×2 (06:59→22:36)
[2020-08-11] MEDS: LORATADINE 10 MG TAB PO SCH (06:59)
[2020-08-11] MEDS: ALPRAZolam 0.25 MG TAB PO SCH ×2 (06:59→22:37)
[2020-08-11] MEDS: ACETAMINOPHEN TAB 325 MG TAB PO SCH ×3 (06:59→22:36)
[2020-08-11] MEDS: SERTRALINE 100 MG TAB PO SCH (06:59)
[2020-08-11] MEDS: DORZOLAMIDE-TIMOLOL 2.23%/0.68 10ML BTL BOTH EYES SCH ×2 (07:00→22:38)
[2020-08-11] MEDS: FLUTICASONE 50MCG/SPRAY NASAL 16GM EA NOSTRIL SCH (07:00)
[2020-08-11 07:32] LABS: Anisocytosis Slight; Basophils # (A) 0.1 k/uL (0-0.2); Basophils % (A) 1 %; Eosinophils # (A) 0.2 k/uL (0-0.7); Eosinophils % (A) 4 %; HCT 25.5 % (34.0-46.0); HGB 7.9 gm/dL (11.4-16.0); Hypochromasia Slight; Lymphocytes # (A) 2.1 k/uL (1.0-4.8); Lymphocytes % (A) 38 %; MCH 31.1 pg (25.0-35.0); MCHC 31.2 g/dL (31.0-37.0); MCV 99.7 fL (80.0-100.0); Macrocytosis Slight; Mean Platelet Volume 9.4; Monocytes # (A) 0.4 k/uL (0-1.0); Monocytes % (A) 7 %; Neutrophils # (A) 2.6 k/uL (1.3-7.7); Neutrophils % (A) 46 %; Platelet Count 185 k/uL (150-450); RBC 2.55 m/uL (3.80-5.40); RDW 16.5 % (11.5-15.5); WBC 5.5 k/uL (3.8-10.6)
[2020-08-11] MEDS: ALBUTEROL NEBULIZED 2.5 MG/3 ML INHALATION SCH ×4 (07:32→19:06)
[2020-08-11 07:48] LABS: Calcium 8.7 mg/dL (8.4-10.2); Magnesium 1.6 mg/dL (1.6-2.3); Potassium 3.6 mmol/L (3.5-5.1)
[2020-08-11] MEDS ORDERED: DEXTROSE 50% SYRINGE 50 ML IVP ONE (08:34)
[2020-08-11 08:36] LABS: Glucose,Whole Blood 65 mg/dL (75-99)
[2020-08-11 08:42] LABS: Glucose,Whole Blood 231 mg/dL (75-99)
[2020-08-11] MEDS: allopurinoL 100 MG TAB PO SCH (08:43)
[2020-08-11] MEDS: METOPROLOL TARTRATE 12.5 MG TAB PO SCH ×3 (08:43→23:02)
[2020-08-11] MEDS: PANTOPRAZOLE 40 MG/10 ML VIAL IVP SCH ×2 (08:43→22:36)
[2020-08-11] MEDS: FLUOROMETHOLONE 0.1% OPHTH DROPS 5 ML BTL RIGHT EYE SCH (08:44)
[2020-08-11] MEDS: PIOGLITAZONE 30 MG TAB PO SCH (09:17)
[2020-08-11] MEDS ORDERED: POTASSIUM CHLORIDE ER 20 MEQ TAB.ER PO STA (10:57)
--- NOTE | 2020-08-11 10:57 | P.PN ---
Subjective Patient is seen in follow-up for chronic kidney disease. Renal function fairly stable. Maintained on IV Lasix. Edema gradually improving. Nonoliguric. Has a Vera catheter. Vital signs are stable. General: The patient appeared well nourished and normally developed. HEENT: Head exam is unremarkable. Neck is without jugular venous distension. LUNGS: Breath sounds decreased. HEART: Rate and Rhythm are regular. ABDOMEN: Soft, nontender. Obese. EXTREMITITES: 2+ edema. Erythema noted. No drainage. Objective - Vital Signs Vital signs: Vital Signs Temp 98.4 F 08/11/20 09:42 Pulse 72 08/11/20 09:42 Resp 20 08/11/20 09:42 BP 84/58 08/11/20 09:42 Pulse Ox 100 08/11/20 09:42 Intake & Output 08/10/20 08/11/20 08/11/20 18:59 06:59 18:59 Intake Total 1100 236 Output Total 825 100 Balance 275 -100 236 Weight 124 kg 128 kg Intake: IV 50 cefTRIAXone 2 gm In 50 Sodium Chloride 0.9% 50 ml @ 100 mls/hr IVPB Q24H [facility] Rx#:[id number] Oral 1050 236 Output: Urine 825 100 Other: Voiding Method Indwelling Catheter Indwelling Catheter Indwelling Catheter # Bowel Movements 1 - Labs CBC & Chem 7: 08/11/20 06:38 08/11/20 06:38 Labs: Abnormal Lab Results - Last 24 Hours (Table) 08/10/20 08/10/20 08/10/20 Range/Units 12:18 17:00 20:12 RBC (3.80-5.40) m/uL Hgb (11.4-16.0) gm/dL Hct (34.0-46.0) % RDW (11.5-15.5) % Sodium (137-145) mmol/L Chloride (98-107) mmol/L Carbon Dioxide (22-30) mmol/L BUN (7-17) mg/dL Creatinine (0.52-1.04) mg/dL Glucose (74-99) mg/dL POC Glucose (mg/dL) 191 H 249 H 277 H (75-99) mg/dL 08/11/20 08/11/20 08/11/20 Range/Units 06:38 06:38 08:31 RBC 2.55 L (3.80-5.40) m/uL Hgb 7.9 L (11.4-16.0) gm/dL Hct 25.5 L (34.0-46.0) % RDW 16.5 H (11.5-15.5) % Sodium 136 L (137-145) mmol/L Chloride 95 L (98-107) mmol/L Carbon Dioxide 35 H (22-30) mmol/L BUN 86 H (7-17) mg/dL Creatinine 2.17 H (0.52-1.04) mg/dL Glucose 66 L (74-99) mg/dL POC Glucose (mg/dL) 65 L (75-99) mg/dL 08/11/20 Range/Units 08:38 RBC (3.80-5.40) m/uL Hgb (11.4-16.0) gm/dL Hct (34.0-46.0) % RDW (11.5-15.5) % Sodium (137-145) mmol/L Chloride (98-107) mmol/L Carbon Dioxide (22-30) mmol/L BUN (7-17) mg/dL Creatinine (0.52-1.04) mg/dL Glucose (74-99) mg/dL POC Glucose (mg/dL) 231 H (75-99) mg/dL Microbiology - Last 24 Hours (Table) 08/06/20 20:19 Blood Culture - Preliminary Blood No Growth after 96 hours Assessment and Plan Plan: Assessment: 1. Chronic kidney disease stage IV secondary to nephrosclerosis and cardiorenal syndrome. Creatinine 2.17 today. 2. Acute on chronic diastolic CHF. Next line 3. Volume overload. Improving with diuresis. 4. Lower extremity cellulitis maintained on antibiotics. Infectious disease following. 5. Anemia of chronic kidney disease maintained on Aranesp. 6. Diabetes mellitus. 7. Hypokalemia from diuresis. 8. Hypomagnesemia from diuresis. Plan: Maintain IV Lasix. 1500 mL fluid restriction. Continue to monitor renal function and urine output. Avoid nephrotoxins. Replace potassium and magnesium.
[2020-08-11] MEDS: MAGNESIUM SULFATE-D5W PMX 1 GM in DEXTROSE/WATER 1 100ML.BAG IVPB SCH ×2 (11:23→12:38)
[2020-08-11 11:28] LABS: Glucose,Whole Blood 132 mg/dL (75-99)
[2020-08-11] MEDS: POTASSIUM CHLORIDE ER 10 MEQ TAB.ER.PRT PO SCH (12:04)
--- NOTE | 2020-08-11 13:09 | P.PN ---
Subjective Progress Note Date: 08/11/20 This is a 5-year-old female with past medical history significant for paroxysmal atrial fibrillation, CVA with right-sided paralysis and aphasia, diabetes mellitus, hypertension and PE. She was initially transferred from [facility] for possible cellulitis and we were asked to see the patient in [facility] sultation for labile blood pressure. Hypotension in route with EMS with a blood pressure of 60s over 30s and yesterday morning was 150/100. She is a poor historian and is aphasic. She does occasionally answer yes and no to questions. Examination she is resting comfortably in bed. She is being transferred to a medical floor. Laboratory values this morning showed hemoglobin 7.9, sodium 136, potassium 3.6, BUN 86 and creatinine 2.17 which are trending up. I do find this morning show heart rate 61, blood pressure 104/51 and an O2 saturation of 92% on 2 L using nasal cannula. She is afebrile. Objective - Vital Signs Vital signs: Vital Signs Temp 98 F 08/11/20 08:00 Pulse 61 08/11/20 08:00 Resp 18 08/11/20 08:00 BP 104/51 08/11/20 08:00 Pulse Ox 98 08/11/20 08:00 Intake & Output 08/10/20 08/11/20 08/11/20 18:59 06:59 18:59 Intake Total 1100 236 Output Total 825 100 Balance 275 -100 236 Weight 124 kg 128 kg Intake: IV 50 cefTRIAXone 2 gm In 50 Sodium Chloride 0.9% 50 ml @ 100 mls/hr IVPB Q24H [facility] Rx#:[id number] Oral 1050 236 Output: Urine 825 100 Other: Voiding Method Indwelling Catheter Indwelling Catheter Indwelling Catheter # Bowel Movements 1 - Exam PHYSICAL EXAMINATION: HEENT: Head is atraumatic, normocephalic. Pupils equal, round. Neck is supple. There is no elevated jugular venous pressure. HEART EXAMINATION: Heart sounds regular, S1 and S2 normal. No murmur or gallop heard. CHEST EXAMINATION: Lungs reveal diminished air entry bilaterally. No chest wall tenderness is noted on palpation or with deep breathing. ABDOMEN: Soft, nontender. Bowel sounds are heard. No organomegaly noted. EXTREMITIES: 1+ peripheral pulses with evidence of 1-2+ peripheral edema and no calf tenderness noted. Lower extremity chronic skin changes noted consistent with venous sufficiency. NEUROLOGIC patient is awake, alert and aphasic. Right-sided paralysis - Labs CBC & Chem 7: 08/11/20 06:38 08/11/20 06:38 Labs: Abnormal Lab Results - Last 24 Hours (Table) 08/10/20 08/10/20 08/10/20 Range/Units 07:48 12:18 17:00 RBC (3.80-5.40) m/uL Hgb (11.4-16.0) gm/dL Hct (34.0-46.0) % RDW (11.5-15.5) % Sodium (137-145) mmol/L Chloride 97 L (98-107) mmol/L Carbon Dioxide 32 H (22-30) mmol/L BUN 89 H (7-17) mg/dL Creatinine 1.94 H (0.52-1.04) mg/dL Glucose 100 H (74-99) mg/dL POC Glucose (mg/dL) 191 H 249 H (75-99) mg/dL 08/10/20 08/11/20 08/11/20 Range/Units 20:12 06:38 06:38 RBC 2.55 L (3.80-5.40) m/uL Hgb 7.9 L (11.4-16.0) gm/dL Hct 25.5 L (34.0-46.0) % RDW 16.5 H (11.5-15.5) % Sodium 136 L (137-145) mmol/L Chloride 95 L (98-107) mmol/L Carbon Dioxide 35 H (22-30) mmol/L BUN 86 H (7-17) mg/dL Creatinine 2.17 H (0.52-1.04) mg/dL Glucose 66 L (74-99) mg/dL POC Glucose (mg/dL) 277 H (75-99) mg/dL 08/11/20 08/11/20 Range/Units 08:31 08:38 RBC (3.80-5.40) m/uL Hgb (11.4-16.0) gm/dL Hct (34.0-46.0) % RDW (11.5-15.5) % Sodium (137-145) mmol/L Chloride (98-107) mmol/L Carbon Dioxide (22-30) mmol/L BUN (7-17) mg/dL Creatinine (0.52-1.04) mg/dL Glucose (74-99) mg/dL POC Glucose (mg/dL) 65 L 231 H (75-99) mg/dL Microbiology - Last 24 Hours (Table) 08/06/20 20:19 Blood Culture - Preliminary Blood No Growth after 96 hours Assessment and Plan Assessment: #1 possible right lower extremity cellulitis #2 hypotension, improved #3 history of paroxysmal atrial fibrillation, anticoagulated #4 hypertension #5 chronic kidney disease with evidence of acute kidney injury #6 diabetes mellitus type 2 #7 history of DVT/PE #8 history of CVA with right-sided hemiparesis and aphasia Plan: From cardiology's perspective medications were reviewed. We will decrease lasix dose. Continue low-dose metoprolol. We'll continue to follow the patient with right further recommendations accordingly. The above dictated assessment and findings were discussed with signing physician. The impression and plan of care have been directed as dictated. Paula Zapata, Nurse Practitioner, acting as scribe for signing physician.
[2020-08-11] MEDS ORDERED: guaiFENesin SYRUP 100MG/5ML 200 MG/10 ML CUP PO PRN (16:17)
[2020-08-11] MEDS ORDERED: bisacodyL 5 MG TABLET.DR PO PRN (16:17)
[2020-08-11] MEDS ORDERED: ATROPINE OPHTH SOLN 1% 5ML BTL SUBLINGUAL PRN (16:17)
[2020-08-11] MEDS ORDERED: bisacodyL 10 MG SUPP RECTAL PRN (16:17)
[2020-08-11] MEDS ORDERED: [UNRECOGNIZED DRUG - OTHER] BOTH EYES SCH (16:30)
[2020-08-11 16:41] LABS: Glucose,Whole Blood 170 mg/dL (75-99)
--- NOTE | 2020-08-11 17:44 | PN ---
PROGRESS NOTE DATE OF SERVICE: 08/11/2020. This 65-year-old woman with a past medical history of multiple medical problems, referred from [facility]. The patient has significant bilateral leg cellulitis. Patient on IV antibiotics. Patient confused as well. The patient had fluid overload secondary to kidney disease as well. The patient also had diabetic nephropathy. Multiple consultants are following the patient closely. Dr. Knutson has seen the patient and recommended IV Lasix. The patient also had multiple medical problems. The patient also history of CVA. PAST MEDICAL HISTORY: Reviewed. REVIEW OF SYSTEMS: Could not be taken, the patient is confused. CURRENT MEDICATIONS: Reviewed and include: Tylenol, Ventolin, Zyloprim, Xanax, Eliquis. Doses are reviewed. PHYSICAL EXAM: Patient is conscious, nonverbal. Pulse 69. Blood pressure 88/51, respiration 18, temp 98.1, pulse ox 98% on 2 L. HEENT: Conjunctivae normal. NECK: No JVD. CARDIOVASCULAR: S1, S2. RESPIRATORY SYSTEM: Breath sounds diminished at the bases. A few scattered rhonchi and crackles. ABDOMEN: Soft. Obese. Nontender. LEGS: Bilateral leg cellulitis and erythema and cellulitis present. NERVOUS SYSTEM: Diffusely weak. LABS: WBC 5.2, hemoglobin 7.9, sodium 130, potassium 3.6, creatinine is 2.17. ASSESSMENT: 1. Acute bilateral leg cellulitis with sepsis present on admission. 2. Fluid overload secondary to kidney disease. 3. Chronic kidney stage 4 secondary to diabetic nephropathy. 4. History of hypertension. 5. Change in mental status, acute metabolic encephalopathy multifactorial. 6. Diabetes mellitus type 2. 7. History of coronary artery disease. 8. History of cerebrovascular accident and stroke with right hemiparesis and dysarthria. 9. Chronic renal failure. 10.History of deep vein thrombosis and pulmonary embolism on Eliquis. 11.History of hypertension. 12.History of anxiety, depression. 13.Hyponatremia. 14.Anemia, multifactorial. RECOMMENDATIONS AND DISCUSSION: Recommend to continue current medications, monitoring and symptomatic treatment. Continue with empiric antibiotics. The patient is on Rocephin at this time. The cultures are negative. Multiple consultants following the patient closely. Closely follow renal functions. Repeat labs. Adjust the blood pressure medications. Monitor blood sugars closely. The patient is on IV Lasix. Guarded prognosis. Further recommendations to follow. I will check an 8:00 am cortisol level. MMODL / IJN: [id number] /
[2020-08-11 20:32] LABS: Glucose,Whole Blood 241 mg/dL (75-99)
[2020-08-11] MEDS: INSULIN DETEMIR (LEVEMIR) 100 UNIT/ML SYR SQ SCH (22:37)
[2020-08-11] MEDS: LATANOPROST 0.005% OPHTH DROPS 2.5 ML BTL BOTH EYES SCH (22:39)
[2020-08-11] MEDS: MELATONIN 5 MG TABLET PO SCH (22:59)
--- NOTE | 2020-08-11 23:16 | PN ---
PROGRESS NOTE DATE OF SERVICE: 08/11/2020 REASON FOR FOLLOWUP: Bilateral lower extremity cellulitis and urinary tract infection. INTERVAL HISTORY: Patient is currently afebrile. The patient is breathing comfortably. Denies any chest pain or cough. No abdominal pain. No diarrhea has been reported. PHYSICAL EXAMINATION: Blood pressure 120/69, pulse of 90, temperature 98.1. She is 90% on 2 L nasal cannula. General description is a middle-aged female lying in bed in no distress. Respiratory system: Unlabored breathing, clear to auscultation anteriorly. Heart S1, S2. Regular rate and rhythm. Abdomen soft, no tenderness. LABS: Hemoglobin 10.1, white count of 5.5, BUN of 86, creatinine is 2.17. DIAGNOSTIC IMPRESSION AND PLAN: Patient admitted to the hospital with weakness, lower extremity swelling and concern for possible cellulitis and urinary tract infection. Patient is covered with Rocephin. Culture has been negative so far. Finish therapy with oral Ceftin. Continue supportive care. MMODL / IJN: [id number] /
[2020-08-12] MEDS: ONDANSETRON 4 MG TAB PO SCH ×5 (01:06→23:47)
[2020-08-12] MEDS: ACETAMINOPHEN TAB 325 MG TAB PO SCH ×3 (06:08→20:55)
[2020-08-12 06:55] LABS: Glucose,Whole Blood 137 mg/dL (75-99)
[2020-08-12] MEDS: ALBUTEROL NEBULIZED 2.5 MG/3 ML INHALATION SCH ×4 (07:31→19:46)
[2020-08-12] MEDS: allopurinoL 100 MG TAB PO SCH (08:22)
[2020-08-12] MEDS: PIOGLITAZONE 30 MG TAB PO SCH (08:22)
[2020-08-12] MEDS: PANTOPRAZOLE 40 MG/10 ML VIAL IVP SCH ×2 (08:22→20:54)
[2020-08-12] MEDS: ALPRAZolam 0.25 MG TAB PO SCH ×2 (08:23→20:55)
[2020-08-12] MEDS: APIXABAN 2.5 MG TABLET PO SCH ×2 (08:23→17:30)
[2020-08-12] MEDS: LORATADINE 10 MG TAB PO SCH (08:23)
[2020-08-12] MEDS: METOPROLOL TARTRATE 12.5 MG TAB PO SCH ×2 (08:23→20:55)
[2020-08-12] MEDS: DORZOLAMIDE-TIMOLOL 2.23%/0.68 10ML BTL BOTH EYES SCH ×2 (08:24→20:55)
[2020-08-12] MEDS: FLUOROMETHOLONE 0.1% OPHTH DROPS 5 ML BTL RIGHT EYE SCH (08:26)
[2020-08-12] MEDS: SERTRALINE 100 MG TAB PO SCH (08:26)
[2020-08-12] MEDS: PREGABALIN 75 MG CAP PO SCH ×2 (08:29→20:55)
--- NOTE | 2020-08-12 09:27 | P.PN ---
Subjective Patient is seen in follow-up for chronic kidney disease. Renal function fairly stable as of yesterday. Maintained on IV Lasix. Edema gradually improving. Nonoliguric. Has a Vera catheter. Blood pressure on the lower side this morning. Vital sign blood pressure on the lower side.s: General: The patient appeared well nourished and normally developed. HEENT: Head exam is unremarkable. Neck is without jugular venous distension. LUNGS: Breath sounds decreased. HEART: Rate and Rhythm are regular. ABDOMEN: Soft, nontender. Obese. EXTREMITITES: 1+ edema. Erythema noted. No drainage. Objective - Vital Signs Vital signs: Vital Signs Temp 98.4 F 08/12/20 07:47 Pulse 75 08/12/20 07:47 Resp 19 08/12/20 07:47 BP 86/57 08/12/20 07:47 Pulse Ox 100 08/12/20 07:47 Intake & Output 08/11/20 08/12/20 08/12/20 18:59 06:59 18:59 Intake Total 586 Output Total 800 825 Balance -214 -825 Weight 129.5 kg Intake: IV 50 cefTRIAXone 2 gm In 50 Sodium Chloride 0.9% 50 ml @ 100 mls/hr IVPB Q24H [facility] Rx#:[id number] Intake, IV Titration 200 Amount Magnesium Sulfate-D5w Pmx 200 1 gm In Dextrose/Water 1 100ml.bag @ 100 mls/hr IVPB Q1H [facility] Rx#: [id number] Oral 336 Output: Urine 800 825 Other: Voiding Method Indwelling Catheter Indwelling Catheter - Labs CBC & Chem 7: 08/11/20 06:38 08/11/20 06:38 Labs: Abnormal Lab Results - Last 24 Hours (Table) 08/11/20 08/11/20 08/11/20 Range/Units 11:26 16:38 20:30 POC Glucose (mg/dL) 132 H 170 H 241 H (75-99) mg/dL 08/12/20 Range/Units 06:54 POC Glucose (mg/dL) 137 H (75-99) mg/dL Microbiology - Last 24 Hours (Table) 08/06/20 20:19 Blood Culture - Preliminary Blood No Growth after 120 hours Assessment and Plan Plan: Assessment: 1. Chronic kidney disease stage IV secondary to nephrosclerosis and cardiorenal syndrome. Creatinine 2.17 as of yesterday. 2. Acute on chronic diastolic CHF. 3. Volume overload. Improving with diuresis. 4. Lower extremity cellulitis maintained on antibiotics. Infectious disease following. 5. Anemia of chronic kidney disease maintained on Aranesp. Iron sat 23%. 6. Diabetes mellitus. 7. Hypokalemia from diuresis. Status post placement. 8. Hypomagnesemia from diuresis. Status post placement. Plan: Maintain IV Lasix - it was decreased to twice a day. 1500 mL fluid restriction. Continue to monitor renal function and urine output. Avoid nephrotoxins. Add midodrine. Follow-up morning labs.
--- NOTE | 2020-08-12 10:00 | P.PN ---
Subjective Progress Note Date: 08/12/20 History of present illness: This is a 65-year-old female with past medical history significant for paroxys mal atrial fibrillation, CVA with right-sided paralysis and aphasia, diabetes mellitus, hypertension and PE. She was initially transferred from [facility] for possible cellulitis and we were asked to see the patient in consultation for labile blood pressure. Hypotension in route with EMS with a blood pressure of 60s over 30s and yesterday morning was 150/100. She is a poor historian and is aphasic. She does occasionally answer yes and no to questions. Examination she is resting comfortably in bed. She was transferred to the [facility] floor yesterday. Morning laboratory results not available. Patient is been afebrile, heart rate in the 60s and 70s, blood pressure has been running low, this morning 86/57. Dr. Costa has further decrease Lasix to 40 mg IV every 12 hours and morning dose was held. Her evening dose of Lopressor 12.5 mg was held last night. This was given this morning with heart rate of 91. Physical examination: Gen: This is a 65-year-old female. Patient is resting in bed and appears comfortable. HEENT: Head is atraumatic, normocephalic. Pupils equal, round. Sclerae is anicteric. NECK: Supple. No JVD. LUNGS: Diminished bilaterally. No wheezes or rhonchi. No intercostal retractions. HEART: Regular rate and rhythm. No murmur. ABDOMEN: Soft. Bowel sounds are present. No masses. No tenderness. EXTREMITIES: 1+ peripheral pulses with evidence of 1+ left lower extremity peripheral edema, no edema on the right lower extremity and no calf tenderness noted. Lower extremity chronic skin changes noted consistent with venous sufficiency. NEUROLOGICAL: Patient is awake, alert and aphasic. Right-sided paralysis Assessment: #1 possible right lower extremity cellulitis #2 hypotension, improved #3 history of paroxysmal atrial fibrillation, anticoagulated #4 hypertension #5 chronic kidney disease with acute kidney injury #6 diabetes mellitus type 2 #7 history of DVT/PE #8 history of CVA with right-sided hemiparesis and aphasia Plan: IV Lasix was decreased to 40 mg every 12 hours Continue eliquis 2.5 mg twice daily, Lopressor 12.5 mg twice daily Further recommendations to follow based upon clinical course Thank you kindly for this consultation. Nurse practitioner note has been reviewed, I agree with documented findings and plan of care. Patient was seen and examined. Objective - Vital Signs Vital signs: Vital Signs Temp 98.4 F 08/12/20 07:47 Pulse 75 08/12/20 07:47 Resp 19 08/12/20 07:47 BP 86/57 08/12/20 07:47 Pulse Ox 100 08/12/20 07:47 Intake & Output 08/11/20 08/12/20 08/12/20 18:59 06:59 18:59 Intake Total 586 Output Total 800 825 Balance -214 -825 Weight 129.5 kg Intake: IV 50 [id number] 2 gm In 50 Sodium Chloride 0.9% 50 ml @ 100 mls/hr IVPB Q24H ROSE Rx#:[id number] Intake, IV Titration 200 Amount Magnesium Sulfate-D5w Pmx 200 1 gm In Dextrose/Water 1 100ml.bag @ 100 mls/hr IVPB Q1H ROSE Rx#: [id number] Oral 336 Output: Urine 800 825 Other: Voiding Method Indwelling Catheter Indwelling Catheter - Labs CBC & Chem 7: 08/12/20 05:34 08/12/20 05:34 Labs: Abnormal Lab Results - Last 24 Hours (Table) 08/11/20 08/11/20 08/11/20 Range/Units 11:26 16:38 20:30 POC Glucose (mg/dL) 132 H 170 H 241 H (75-99) mg/dL 08/12/20 Range/Units 06:54 POC Glucose (mg/dL) 137 H (75-99) mg/dL Microbiology - Last 24 Hours (Table) 08/06/20 20:19 Blood Culture - Preliminary Blood No Growth after 120 hours
[2020-08-12 10:01] LABS: Basophils # (A) 0.04 X 10*3/uL (0.00-0.10); Basophils % (A) 0.6 %; Eosinophils # (A) 0.28 X 10*3/uL (0.04-0.35); Eosinophils % (A) 4.1 %; HCT 27.5 % (37.2-46.3); HGB 8.2 g/dL (12.0-15.0); Lymphocytes # (A) 2.09 X 10*3/uL (0.90-5.00); Lymphocytes % (A) 30.9 %; MCH 30.7 pg (27.0-32.0); MCHC 29.8 g/dL (32.0-37.0); Mean Platelet Volume 12.4 fL (9.5-12.2); Monocytes # (A) 0.65 X 10*3/uL (0.20-1.00); Monocytes % (A) 9.6 %; Neutrophils # (A) 3.54 X 10*3/uL (1.80-7.70); Neutrophils % (A) 52.4 %; Platelet Count 224 X 10*3/uL (140-440); RBC 2.67 X 10*6/uL (4.10-5.20); RDW 16.5 % (11.5-14.5); WBC 6.76 X 10*3/uL (4.50-10.00)
[2020-08-12 10:11] LABS: African American GFR (CKD) 25.2 (60.0-200.0); BUN/Creat Ratio 37.83 Ratio (12.00-20.00); Calcium 8.7 mg/dL (8.7-10.3); Non-African American GFR(CKD) 21.7 (60.0-200.0); Potassium 3.7 mmol/L (3.5-5.5)
[2020-08-12 11:29] LABS: Glucose,Whole Blood 158 mg/dL (75-99)
[2020-08-12] MEDS: FUROSEMIDE 10 MG/ML 4 ML VIAL IV SCH ×2 (12:09→20:54)
[2020-08-12] MEDS: MIDODRINE 5 MG TAB PO SCH ×2 (12:09→17:30)
[2020-08-12] MEDS: POTASSIUM CHLORIDE ER 10 MEQ TAB.ER.PRT PO SCH (12:09)
[2020-08-12] MEDS: FLUTICASONE 50MCG/SPRAY NASAL 16GM EA NOSTRIL SCH (12:10)
[2020-08-12 16:28] LABS: Glucose,Whole Blood 176 mg/dL (75-99)
--- NOTE | 2020-08-12 18:08 | PN ---
PROGRESS NOTE DATE OF SERVICE: 08/12/2020. This 65-year-old woman was admitted with multiple medical problems and bilateral leg cellulitis and sepsis, also had fluid overload. The patient has kidney disease, possible diabetic nephropathy. Multiple consultants are following the patient closely. The patient's sensorium is slightly improved at this time but still the creatinine is elevated to 2.3. Blood sugar is also elevated. White count is 6.67. Hemoglobin has gone down to 8.2. The cultures are negative so far. Multiple consultants are following the patient closely. PAST MEDICAL HISTORY: Reviewed. REVIEW OF SYSTEMS: Could not be taken. The patient is still confused. CURRENT MEDICATIONS: Reviewed and include: Tylenol, Ventolin, Zyloprim, Xanax, Eliquis, Dulcolax, Rocephin, Cosopt. Doses reviewed. PHYSICAL EXAM: Patient is conscious, confused. Pulse 68. Blood pressure 93/59, respiration 18, temperature 97.9. Pulse ox 100 percent on 2 L. HEENT: Conjunctivae normal. NECK: No JVD. CARDIOVASCULAR: S1, S2 muffled. RESPIRATORY: Breath sounds diminished in the bases. Bilateral scattered rhonchi and crackles. ABDOMEN: Soft, nontender. LEGS: Bilateral leg swelling. NERVOUS SYSTEM: Diffusely weak. LABS: WBC 6.6, hemoglobin is 8.2. The 8:00 am cortisol was 7.6. ASSESSMENT: 1. Acute bilateral leg cellulitis with sepsis present on admission. 2. Fluid overload secondary to kidney disease. 3. Relative hypotension. 4. History of hypertension. 5. Chronic kidney stage 4 secondary to diabetic nephropathy. 6. Change in mental status, acute metabolic encephalopathy multifactorial. 7. Diabetes mellitus type 2. 8. History of coronary artery disease. 9. History of cerebrovascular incident with stroke, right hemiparesis and dysarthria. 10.Chronic renal failure. 11.Gait dysfunction. 12.History of deep vein thrombosis and pulmonary embolism on Eliquis. 13.History of hypertension. 14.History of anxiety, depression. 15.Hyponatremia. 16.Anemia, multifactorial. 17.Obesity with body mass index 52.2. 18.NO CODE, NO CPR, NO VENT. RECOMMENDATIONS AND DISCUSSION: This 65-year-old woman who presented with multiple complex medical issues, we will monitor the patient closely, continue the current medications, management and symptomatic treatment. Continue with Eliquis. Continue with the IV antibiotics. Otherwise closely monitor. PT/OT evaluation, possible ECF rehab and prognosis guarded. Repeat labs ordered for tomorrow including magnesium. Guarded prognosis. Further recommendations to follow. MMODL / IJN: [id number] /
[2020-08-12 20:48] LABS: Glucose,Whole Blood 253 mg/dL (75-99)
[2020-08-12] MEDS: LATANOPROST 0.005% OPHTH DROPS 2.5 ML BTL BOTH EYES SCH (20:56)
[2020-08-12] MEDS: INSULIN DETEMIR (LEVEMIR) 100 UNIT/ML SYR SQ SCH (21:12)
--- NOTE | 2020-08-12 22:28 | PN ---
PROGRESS NOTE DATE OF SERVICE: 08/12/2020 REASON FOR FOLLOWUP: Lower extremity cellulitis and UTI. INTERVAL HISTORY: Patient is currently afebrile. The patient is breathing comfortably. Denies having any chest pain or cough. No abdominal pain or pain to the lower extremity. PHYSICAL EXAMINATION: Blood pressure 93/59 with a pulse of 77. Temperature 97.9. She is 100% on 2 L nasal cannula. General description is a middle-aged female lying in bed in no distress. Respiratory system: Unlabored breathing. Clear to auscultation anteriorly. Heart S1, S2. Regular rate and rhythm. ABDOMEN: Soft. No tenderness. LEGS: Some swelling. Mild redness. No drainage. Right heel with necrotic wound. No cellulitis. LABS: Hemoglobin is 8.8, white count 6.76. BUN of 27, creatinine is 2.3. DIAGNOSTIC IMPRESSION AND PLAN: Patient with bilateral lower extremity swelling, concern for cellulitis and possible urinary tract infection. Culture has been negative. The patient on Rocephin, transition to short course of oral Ceftin on discharge. Continue supportive care. MMODL / IJN: [id number] /
[2020-08-12] MEDS: MELATONIN 5 MG TABLET PO SCH (23:46)
[2020-08-13] MEDS: ACETAMINOPHEN TAB 325 MG TAB PO SCH ×3 (05:39→23:00)
[2020-08-13] MEDS: ONDANSETRON 4 MG TAB PO SCH ×3 (05:40→17:37)
[2020-08-13 07:34] LABS: Glucose,Whole Blood 122 mg/dL (75-99)
[2020-08-13] MEDS: METOPROLOL TARTRATE 12.5 MG TAB PO SCH ×2 (08:01→20:32)
[2020-08-13] MEDS: PREGABALIN 75 MG CAP PO SCH ×2 (08:01→20:33)
[2020-08-13] MEDS: MIDODRINE 5 MG TAB PO SCH ×3 (08:01→17:35)
[2020-08-13] MEDS: metOLazone 5 MG TAB PO SCH (08:01)
[2020-08-13] MEDS: allopurinoL 100 MG TAB PO SCH (08:01)
[2020-08-13] MEDS: SERTRALINE 100 MG TAB PO SCH (08:01)
[2020-08-13] MEDS: LORATADINE 10 MG TAB PO SCH (08:02)
[2020-08-13] MEDS: APIXABAN 2.5 MG TABLET PO SCH ×2 (08:02→17:35)
[2020-08-13] MEDS: PIOGLITAZONE 30 MG TAB PO SCH (08:02)
[2020-08-13] MEDS: FUROSEMIDE 10 MG/ML 4 ML VIAL IV SCH ×2 (08:02→20:33)
[2020-08-13] MEDS: PANTOPRAZOLE 40 MG/10 ML VIAL IVP SCH ×2 (08:02→20:34)
[2020-08-13] MEDS: ALPRAZolam 0.25 MG TAB PO SCH ×2 (08:02→20:33)
[2020-08-13] MEDS: LATANOPROST 0.005% OPHTH DROPS 2.5 ML BTL BOTH EYES SCH (08:03)
[2020-08-13] MEDS: FLUTICASONE 50MCG/SPRAY NASAL 16GM EA NOSTRIL SCH (08:03)
[2020-08-13] MEDS: FLUOROMETHOLONE 0.1% OPHTH DROPS 5 ML BTL RIGHT EYE SCH (08:03)
[2020-08-13] MEDS: DORZOLAMIDE-TIMOLOL 2.23%/0.68 10ML BTL BOTH EYES SCH ×2 (08:04→20:34)
[2020-08-13] MEDS ORDERED: DARBEPOETIN ALFA 60 MCG/0.3 ML SYRINGE SQ SCH (09:00)
[2020-08-13] MEDS: ALBUTEROL NEBULIZED 2.5 MG/3 ML INHALATION SCH ×4 (09:03→19:12)
[2020-08-13 09:28] LABS: Basophils # (A) 0.07 X 10*3/uL (0.00-0.10); Eosinophils % (A) 4.2 %; HCT 34.1 % (37.2-46.3); HGB 10.2 g/dL (12.0-15.0); Lymphocytes % (A) 32.1 %; MCH 31.1 pg (27.0-32.0); MCHC 29.9 g/dL (32.0-37.0); Mean Platelet Volume 12.3 fL (9.5-12.2); Monocytes # (A) 0.63 X 10*3/uL (0.20-1.00); Monocytes % (A) 8.8 %; Neutrophils # (A) 3.63 X 10*3/uL (1.80-7.70); Neutrophils % (A) 50.7 %; Platelet Count 239 X 10*3/uL (140-440); RBC 3.28 X 10*6/uL (4.10-5.20); RDW 16.7 % (11.5-14.5); WBC 7.16 X 10*3/uL (4.50-10.00)
[2020-08-13 09:52] LABS: African American GFR (CKD) 28.1 (60.0-200.0); Anion Gap 7.6 mmol/L (4.00-12.00); BUN/Creat Ratio 37.14 Ratio (12.00-20.00); Calcium 9.1 mg/dL (8.7-10.3); Carbon Dioxide 36.4 mmol/L (21.6-31.8); Non-African American GFR(CKD) 24.3 (60.0-200.0)
[2020-08-13 11:41] LABS: Glucose,Whole Blood 175 mg/dL (75-99)
--- NOTE | 2020-08-13 11:42 | P.PN ---
Subjective Patient is seen in follow-up for chronic kidney disease. Renal function a little better today. Maintained on IV Lasix. Edema gradually improving. Nonoliguric. Has a Vera catheter. Blood pressure well controlled this morning. Vital sign blood pressure on the lower side.s: General: The patient appeared well nourished and normally developed. HEENT: Head exam is unremarkable. Neck is without jugular venous distension. LUNGS: Breath sounds decreased. HEART: Rate and Rhythm are regular. ABDOMEN: Soft, nontender. Obese. EXTREMITITES: 1+ edema. Erythema noted. No drainage. Objective - Vital Signs Vital signs: Vital Signs Temp 97.9 F 08/13/20 08:00 Pulse 72 08/13/20 08:00 Resp 20 08/13/20 08:00 BP 132/60 08/13/20 08:00 Pulse Ox 100 08/13/20 08:00 Intake & Output 08/12/20 08/13/20 08/13/20 18:59 06:59 18:59 Intake Total 1040 Output Total 600 1175 Balance 440 -1175 Weight 126 kg Intake: Oral 1040 Output: Urine 600 1175 Other: Voiding Method Indwelling Catheter Indwelling Catheter # Bowel Movements 1 - Labs CBC & Chem 7: 08/13/20 05:46 08/13/20 05:46 Labs: Abnormal Lab Results - Last 24 Hours (Table) 08/12/20 08/12/20 08/13/20 Range/Units 16:26 20:46 05:46 RBC 3.28 L (4.10-5.20) X 10*6/uL Hgb 10.2 L (12.0-15.0) g/dL Hct 34.1 L (37.2-46.3) % MCV 104.0 H (80.0-97.0) fL MCHC 29.9 L (32.0-37.0) g/dL RDW 16.7 H (11.5-14.5) % MPV 12.3 H (9.5-12.2) fL Absolute Nucleated RBC 0.09 H (0.00-0.00) X 10*3/uL Immature Gran # 0.23 H (0.00-0.04) X 10*3/uL NRBC/100 WBC Diff 1.3 H (0.0-0.0) /100 WBCS Chloride (96-109) mmol/L Carbon Dioxide (21.6-31.8) mmol/L BUN (9.0-27.0) mg/dL Creatinine (0.6-1.5) mg/dL Est GFR (CKD-EPI)AfAm (60.0-200.0) Est GFR (CKD-EPI)NonAf (60.0-200.0) BUN/Creatinine Ratio (12.00-20.00) Ratio Glucose (70-110) mg/dL POC Glucose (mg/dL) 176 H 253 H (75-99) mg/dL 08/13/20 08/13/20 Range/Units 05:46 07:15 RBC (4.10-5.20) X 10*6/uL Hgb (12.0-15.0) g/dL Hct (37.2-46.3) % MCV (80.0-97.0) fL MCHC (32.0-37.0) g/dL RDW (11.5-14.5) % MPV (9.5-12.2) fL Absolute Nucleated RBC (0.00-0.00) X 10*3/uL Immature Gran # (0.00-0.04) X 10*3/uL NRBC/100 WBC Diff (0.0-0.0) /100 WBCS Chloride 95 L (96-109) mmol/L Carbon Dioxide 36.4 H (21.6-31.8) mmol/L BUN 78.0 H (9.0-27.0) mg/dL Creatinine 2.1 H (0.6-1.5) mg/dL Est GFR (CKD-EPI)AfAm 28.1 L (60.0-200.0) Est GFR (CKD-EPI)NonAf 24.3 L (60.0-200.0) BUN/Creatinine Ratio 37.14 H (12.00-20.00) Ratio Glucose 115 H (70-110) mg/dL POC Glucose (mg/dL) 122 H (75-99) mg/dL Microbiology - Last 24 Hours (Table) 08/06/20 20:19 Blood Culture - Final Blood No Growth after 144 hours Assessment and Plan Plan: Assessment: 1. Chronic kidney disease stage IV secondary to nephrosclerosis and cardiorenal syndrome. Renal function stable. Creatinine 2.1 today. 2. Acute on chronic diastolic CHF. 3. Volume overload. Improving with diuresis. 4. Lower extremity cellulitis maintained on antibiotics. Infectious disease following. 5. Anemia of chronic kidney disease maintained on Aranesp. Iron sat 23%. 6. Diabetes mellitus. 7. Hypokalemia from diuresis. Status post placement. Better. 8. Hypomagnesemia from diuresis. Status post placement. Better. Plan: Maintain IV Lasix - can likely transition to oral diuretic starting tomorrow. 1500 mL fluid restriction. Continue to monitor renal function and urine output. Avoid nephrotoxins. Maintain midodrine. Cortisol normal.
[2020-08-13] MEDS: POTASSIUM CHLORIDE ER 10 MEQ TAB.ER.PRT PO SCH (12:13)
--- NOTE | 2020-08-13 14:02 | P.PN ---
Subjective Patient is seen and examined resting comfortably sleeping in bed in no acute distress. Ongoing lower extremity edema, improving daily. Blood pressure 132/60 heart rate 72 afebrile maintaining oxygen saturation on nasal cannula. Laboratory data reviewed, WBC 7, hemoglobin 10.2, platelets 239, sodium 139, potassium 4.0, creatinine 2.1 and magnesium 2.0. Currently maintained on Lasix IV 40 mg twice a day. 24-hour urine output 1775cc. GENERAL: Well-appearing, well-nourished and in no acute distress. Morbidly obese. NECK: Supple without JVD or thyromegaly. LUNGS: Breath sounds clear to auscultation bilaterally. Respiration equal and unlabored. No wheezes, rales or rhonchi. HEART: Regular rate and rhythm without murmurs, rubs or gallops. S1 and S2 heard. EXTREMITIES: Normal range of motion, 1+ bilateral lower extremity edema. No clubbing or cyanosis. Peripheral pulses intact. ASSESSMENT Cellulitis Paroxysmal atrial fibrillation on eliquis Acute on chronic kidney disease Hypertension with episodes of hypotension on admission that has improved Diabetes mellitus History of CVA with right-sided hemiparesis and aphasia PLAN Continue IV diuretics for another 24 hours. Transition to oral Demadex tomorrow. Nurse Practitioner note has been reviewed, I agree with a documented findings and plan of care. Patient was seen and examined. Objective - Vital Signs Vital signs: Vital Signs Temp 97.9 F 08/13/20 08:00 Pulse 72 08/13/20 08:00 Resp 20 08/13/20 08:00 BP 132/60 08/13/20 08:00 Pulse Ox 100 08/13/20 08:00 Intake & Output 08/12/20 08/13/20 08/13/20 18:59 06:59 18:59 Intake Total 1040 Output Total 600 1175 Balance 440 -1175 Weight 126 kg Intake: Oral 1040 Output: Urine 600 1175 Other: Voiding Method Indwelling Catheter Indwelling Catheter # Bowel Movements 1 - Labs CBC & Chem 7: 08/13/20 05:46 08/13/20 05:46 Labs: Abnormal Lab Results - Last 24 Hours (Table) 08/12/20 08/12/20 08/13/20 Range/Units 16:26 20:46 05:46 RBC 3.28 L (4.10-5.20) X 10*6/uL Hgb 10.2 L (12.0-15.0) g/dL Hct 34.1 L (37.2-46.3) % MCV 104.0 H (80.0-97.0) fL MCHC 29.9 L (32.0-37.0) g/dL RDW 16.7 H (11.5-14.5) % MPV 12.3 H (9.5-12.2) fL Absolute Nucleated RBC 0.09 H (0.00-0.00) X 10*3/uL Immature Gran # 0.23 H (0.00-0.04) X 10*3/uL NRBC/100 WBC Diff 1.3 H (0.0-0.0) /100 WBCS Chloride (96-109) mmol/L Carbon Dioxide (21.6-31.8) mmol/L BUN (9.0-27.0) mg/dL Creatinine (0.6-1.5) mg/dL Est GFR (CKD-EPI)AfAm (60.0-200.0) Est GFR (CKD-EPI)NonAf (60.0-200.0) BUN/Creatinine Ratio (12.00-20.00) Ratio Glucose (70-110) mg/dL POC Glucose (mg/dL) 176 H 253 H (75-99) mg/dL 08/13/20 08/13/20 08/13/20 Range/Units 05:46 07:15 11:32 RBC (4.10-5.20) X 10*6/uL Hgb (12.0-15.0) g/dL Hct (37.2-46.3) % MCV (80.0-97.0) fL MCHC (32.0-37.0) g/dL RDW (11.5-14.5) % MPV (9.5-12.2) fL Absolute Nucleated RBC (0.00-0.00) X 10*3/uL Immature Gran # (0.00-0.04) X 10*3/uL NRBC/100 WBC Diff (0.0-0.0) /100 WBCS Chloride 95 L (96-109) mmol/L Carbon Dioxide 36.4 H (21.6-31.8) mmol/L BUN 78.0 H (9.0-27.0) mg/dL Creatinine 2.1 H (0.6-1.5) mg/dL Est GFR (CKD-EPI)AfAm 28.1 L (60.0-200.0) Est GFR (CKD-EPI)NonAf 24.3 L (60.0-200.0) BUN/Creatinine Ratio 37.14 H (12.00-20.00) Ratio Glucose 115 H (70-110) mg/dL POC Glucose (mg/dL) 122 H 175 H (75-99) mg/dL Microbiology - Last 24 Hours (Table) 08/06/20 20:19 Blood Culture - Final Blood No Growth after 144 hours
--- NOTE | 2020-08-13 14:09 | PN ---
PROGRESS NOTE DATE OF SERVICE: 08/13/2020 REASON FOR FOLLOWUP: Lower extremity cellulitis and UTI. INTERVAL HISTORY: The patient is currently afebrile. Patient is breathing comfortably. The patient denies any chest pain or cough. No abdominal pain or pain to the lower extremity. PHYSICAL EXAMINATION: Blood pressure 132/60 with a pulse of 72, temperature 97.9. She is 100% on 2 L nasal cannula. General description is a middle-aged female lying in bed in no distress. RESPIRATORY SYSTEM: Unlabored breathing, clear to auscultation anteriorly. HEART: S1, S2. Regular rate and rhythm. ABDOMEN: Soft, no tenderness. Legs did have some swelling. No significant redness or drainage. LABS: Hemoglobin is 10.2, white count 7.16, BUN of 78, creatinine is 2.1. DIAGNOSTIC IMPRESSION AND PLAN: Patient admitted to the hospital with concern for lower extremity cellulitis. Did have diffuse swelling of the legs and mild cellulitis plus minus urinary tract infection. Overall improvement on Rocephin. Finish therapy with short course of oral Ceftin. MMODL / IJN: [id number] /
--- NOTE | 2020-08-13 15:55 | PN ---
PROGRESS NOTE DATE OF SERVICE: 08/13/2020 This 65-year-old woman who was admitted with acute bilateral leg cellulitis also had sepsis. The patient also had fluid overload. The patient is being closely monitored. Sensorium is slightly improved. No chest pain. No palpitations. No fever. PHYSICAL EXAMINATION: Alert and oriented x2. Pulse 72, blood pressure 130/60, respiration 20, temperature 97.9, pulse ox 100% on 2 L. HEENT: Conjunctivae normal. NECK: No jugular venous distention. CARDIOVASCULAR SYSTEM: S1, S2 muffled. RESPIRATORY SYSTEM: Breath sounds diminished at the bases. A few scattered rhonchi. ABDOMEN: Soft, obese. LEGS: Bilateral leg cellulitis. NERVOUS SYSTEM: No focal deficit. LABS: WBC 7.2, hemoglobin 10.2 and creatinine is 2.1 Accu-Cheks noted. ASSESSMENT: 1. Acute bilateral leg cellulitis with sepsis, present on admission. 2. Fluid overload secondary to kidney disease. 3. Relative hypotension. 4. History of hypertension. 5. Chronic kidney disease, stage 4, secondary to diabetic nephropathy. 6. Change in mental status, acute metabolic encephalopathy, multifactorial. 7. Diabetes mellitus, type 2. 8. History of coronary artery disease. 9. History of cerebrovascular accident with a stroke and right hemiparalysis and dysarthria. 10.Chronic renal failure. 11.Gait dysfunction. 12.History of deep vein thrombosis and pulmonary embolism, on Eliquis. 13.History of hypertension. 14.History of anxiety, depression. 15.Hyponatremia. 16.Anemia, multifactorial. 17.Obesity with body mass index of 52.2. 18.NO CODE, NO CPR, NO VENT. RECOMMENDATIONS AND DISCUSSION: I recommend to continue current medications, continue with the monitoring, symptomatic treatment, antibiotics. Increase ambulation. PT/OT evaluation. Symptomatic treatment. Prognosis guarded. Eventually ECF rehab. Guarded prognosis. Further recommendations to follow. MMODL / IJN: [id number] /
[2020-08-13] MEDS: MELATONIN 5 MG TABLET PO SCH (20:33)
[2020-08-13 20:47] LABS: Glucose,Whole Blood 296 mg/dL (75-99)
[2020-08-13] MEDS: INSULIN DETEMIR (LEVEMIR) 100 UNIT/ML SYR SQ SCH (20:47)
[2020-08-14] MEDS: ONDANSETRON 4 MG TAB PO SCH ×3 (00:44→10:55)
[2020-08-14] MEDS: ACETAMINOPHEN TAB 325 MG TAB PO SCH ×2 (05:44→14:50)
[2020-08-14 07:02] VITALS: RESP 16
[2020-08-14] MEDS: ALBUTEROL NEBULIZED 2.5 MG/3 ML INHALATION SCH ×2 (07:29→11:47)
[2020-08-14 07:33] LABS: Glucose,Whole Blood 126 mg/dL (75-99)
[2020-08-14] MEDS ORDERED: TORSEMIDE 20 MG TAB PO SCH (09:00)
[2020-08-14] MEDS: METOPROLOL TARTRATE 12.5 MG TAB PO SCH (09:15)
[2020-08-14] MEDS: APIXABAN 2.5 MG TABLET PO SCH (09:16)
[2020-08-14] MEDS: PANTOPRAZOLE 40 MG/10 ML VIAL IVP SCH (09:16)
[2020-08-14] MEDS: PREGABALIN 75 MG CAP PO SCH (09:16)
[2020-08-14] MEDS: allopurinoL 100 MG TAB PO SCH (09:16)
[2020-08-14] MEDS: MIDODRINE 5 MG TAB PO SCH ×2 (09:16→11:38)
[2020-08-14] MEDS: ALPRAZolam 0.25 MG TAB PO SCH (09:16)
[2020-08-14] MEDS: FLUTICASONE 50MCG/SPRAY NASAL 16GM EA NOSTRIL SCH (09:17)
[2020-08-14] MEDS: SERTRALINE 100 MG TAB PO SCH (09:17)
[2020-08-14] MEDS: LORATADINE 10 MG TAB PO SCH (09:17)
[2020-08-14] MEDS: DORZOLAMIDE-TIMOLOL 2.23%/0.68 10ML BTL BOTH EYES SCH (09:17)
[2020-08-14] MEDS: PIOGLITAZONE 30 MG TAB PO SCH (09:18)
[2020-08-14] MEDS: FLUOROMETHOLONE 0.1% OPHTH DROPS 5 ML BTL RIGHT EYE SCH (09:20)
[2020-08-14] MEDS: POTASSIUM CHLORIDE ER 10 MEQ TAB.ER.PRT PO SCH (11:38)
[2020-08-14 11:52] LABS: MCH 30.5 pg (27.0-32.0); MCV 105.1 fL (80.0-97.0); Mean Platelet Volume 11.9 fL (9.5-12.2); Platelet Count 224 X 10*3/uL (140-440); RBC 2.95 X 10*6/uL (4.10-5.20); RDW 16.9 % (11.5-14.5)
[2020-08-14 12:13] LABS: African American GFR (CKD) 28.1 (60.0-200.0); Anion Gap 7.2 mmol/L (4.00-12.00); BUN/Creat Ratio 37.62 Ratio (12.00-20.00); Calcium 9.1 mg/dL (8.7-10.3); Carbon Dioxide 38.8 mmol/L (21.6-31.8); Non-African American GFR(CKD) 24.3 (60.0-200.0); Potassium 4.6 mmol/L (3.5-5.5)
[2020-08-14 12:14] LABS: Glucose,Whole Blood 168 mg/dL (75-99)
--- NOTE | 2020-08-14 13:14 | P.DS ---
Providers Date of admission: 08/06/20 19:34 Expected date of discharge: 08/14/20 Attending physician: Joshua Guo Consults: 08/06/20 20:17 Consult Physician Routine Consulting Provider: Natanael Chester Consult Reason/Comments: bilateral leg cellulitis Do you want consulting provider notified?: Yes Placement Type Exists?: Yes 08/06/20 20:34 Consult Physician Routine Consulting Provider: Jd Schwarz Consult Reason/Comments: hypotension, labile bp Do you want consulting provider notified?: Yes 08/08/20 10:18 Consult Physician Urgent Consulting Provider: Flori Knutson Consult Reason/Comments: renal failure/ known to patient Do you want consulting provider notified?: Yes 08/08/20 12:58 Consult Physician Urgent Consulting Provider: Rocco Ovalle Consult Reason/Comments: Necrotic right ankle wound Do you want consulting provider notified?: Yes Primary care physician: Joshua Guo [facility] Course: Final diagnosis Acute bilateral leg cellulitis with sepsis, present on admission Fluid overload secondary to kidney disease Relative hypotension History of hypertension Chronic kidney disease, stage IV, secondary to diabetic nephropathy Change in mental status, acute metabolic encephalopathy, multifactorial Diabetes mellitus type 2 History of coronary artery disease History 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 Patient is to continue with oral antibiotics in the form of Ceftin 500 mg twice daily for the next 7 days to complete the course. Patient is also instructed to follow-up in the outpatient setting with nephrology and infectious disease at the wound center. Total time taken is greater than 35 minutes. Hospital course This is a 65-year-old female who was recently transferred from [facility] and admitted with acute bilateral leg cellulitis and also sepsis present on admission and is being closely monitored. Infectious disease following and patient was maintained on IV antibiotics and will transition to oral Ceftin 500 mg twice daily for the next 7 days and then may discontinue. Nephrology also following the patient for chronic kidney disease and fluid overload and was maintained on IV Lasix. Patient has transition to oral Demadex and will continue twice daily. Patient continues to have swelling although has improved. Repeat labs in 2-3 days to monitor kidney functions. Patient will need outpatient nephrology follow-up. Patient continues to be weak and will be going to [facility] today. Recommend to continue monitoring blood sugars before meals at bedtime and treat accordingly with sliding scale. Patient is maintained on a dysphagia 3 chopped, consistent carbohydrate diet. On exam vital signs are stable. Cardio S1, S2 are muffled. Respiratory system shows diminished breath sounds at the bases with no wheezing or rhonchi noted. Abdomen is soft and obese, and nontender. Nervous system shows diffuse weakness. Please refer to medication reconciliation sheet for a list of medications. Patient Condition at Discharge: Stable Plan - Discharge Summary Discharge Rx Participant: No New Discharge Prescriptions: New Darbepoetin Josh [Aranesp] 40 mcg SQ Q7D syringe Cefuroxime Axetil [Ceftin] 500 mg PO BID 7 Days #14 tab Torsemide [Demadex] 20 mg PO BID@0900,1600 tab Metoprolol Tartrate [Lopressor] 12.5 mg PO BID tab Midodrine [ProAmatine] 5 mg PO AC-TID tab Albuterol Nebulized [Ventolin Nebulized] 2.5 mg INHALATION RT-QID ml Albuterol Nebulized [Ventolin Nebulized] 2.5 mg INHALATION RT-QID PRN ml PRN Reason: Shortness Of Breath Or Wheezing Continue allopurinoL [Zyloprim] 200 mg PO DAILY@0700 Nitroglycerin Sl Tabs [Nitrostat] 0.4 mg SL Q5M PRN PRN Reason: Chest Pain Magnesium Hydroxide [Milk of Magnesia] 2,400 mg PO Q48H PRN PRN Reason: Constipation Omeprazole 20 mg PO DAILY@0700 Pioglitazone [Actos] 30 mg PO DAILY@0700 Latanoprost/Pf [Latanoprost 0.005% Eye Drop] 1 drop BOTH EYES DAILY@2000 Insulin Glargine [Lantus] 45 unit SQ DAILY@2100 Fluorometholone 0.1% Ophth Juanita [Fml] 1 drop RIGHT EYE DAILY@1200 Ondansetron HCl [Zofran] 4 mg PO Q6H bisacodyL [Bisacodyl] 10 mg RECTAL Q72H PRN PRN Reason: Constipation Sodium Chloride [Saline Mist] 1 spray EA NOSTRIL Q2H PRN PRN Reason: nasal dryness Sertraline HCl [Zoloft] 100 mg PO DAILY@0700 Potassium Chloride 10 meq PO DAILY@1200 metOLazone [Zaroxolyn] 5 mg PO MOWEFR@0700 Menthol [Pickens] 7.5 mg MM Q2H PRN PRN Reason: Cough Melatonin 5 mg PO HS@2099 Loratadine 10 mg PO DAILY@0700 guaiFENesin [Diabetic Tussin Ex] 200 mg PO Q4H PRN PRN Reason: Cough Fluticasone Nasal Agar [Flonase Nasal Agar] 1 spr EA NOSTRIL DAILY@0700 Dorzolamide/Timolol/Pf [Cosopt Pf 2%/5% Ophth Droperette] 1 drop BOTH EYES BID@0700,2099 Bisacodyl 10 mg PO Q72H PRN PRN Reason: Constipation Atropine Ophth Soln 1% 5Ml [Isopto Atropine 1% 5Ml] 2 drops SUBLINGUAL Q2H PRN PRN Reason: excess secretions Apixaban [Eliquis] 2.5 mg PO BID@0700,1700 Acetaminophen Tab [Tylenol] 650 mg PO Q8H Ocusoft Eyelid Cleansin Pad 1 applic BOTH EYES Q48H Liquical 30 ml PO BID@0900,1700 Pregabalin [Lyrica] 75 mg PO BID@0700,1999 #10 cap traMADol HCL 50 mg PO Q6H PRN #10 tab PRN Reason: Pain ALPRAZolam [Xanax] 0.25 mg PO BID@0700,1900 #6 tab Discontinued Torsemide [Demadex] 20 mg PO DAILY@0700 #0 Spironolactone [Aldactone] 25 mg PO DAILY@0700 Doxycycline Hyclate 100 mg PO BID@0700,1900 Albuterol Nebulized [Ventolin Nebulized] 2.5 mg INHALATION RT-Q6H Discharge Medication List allopurinoL [Zyloprim] 200 mg PO DAILY@0700 07/24/17 [History] Fluorometholone 0.1% Ophth Juanita [Fml] 1 drop RIGHT EYE DAILY@1200 08/30/18 [History] Insulin Glargine [Lantus] 45 unit SQ DAILY@209908/30/18 [History] Latanoprost/Pf [Latanoprost 0.005% Eye Drop] 1 drop BOTH EYES DAILY@199908/30/18 [History] Magnesium Hydroxide [Milk of Magnesia] 2,400 mg PO Q48H PRN 08/30/18 [History] Nitroglycerin Sl Tabs [Nitrostat] 0.4 mg SL Q5M PRN 08/30/18 [History] Omeprazole 20 mg PO DAILY@0708/30/18 [History] Ondansetron HCl [Zofran] 4 mg PO Q6H 08/30/18 [History] Pioglitazone [Actos] 30 mg PO DAILY@0708/30/18 [History] Acetaminophen Tab [Tylenol] 650 mg PO Q8H 08/06/20 [History] Apixaban [Eliquis] 2.5 mg PO BID@0700,1700 08/06/20 [History] Atropine Ophth Soln 1% 5Ml [Isopto Atropine 1% 5Ml] 2 drops SUBLINGUAL Q2H PRN 08/06/20 [History] Bisacodyl 10 mg PO Q72H PRN 08/06/20 [History] Dorzolamide/Timolol/Pf [Cosopt Pf 2%/5% Ophth Droperette] 1 drop BOTH EYES BID@0700,209908/06/20 [History] Fluticasone Nasal Agar [Flonase Nasal Agar] 1 spr EA NOSTRIL DAILY@0700 08/06/20 [History] Liquical 30 ml PO BID@0900,1700 08/06/20 [History] Loratadine 10 mg PO DAILY@0708/06/20 [History] Melatonin 5 mg PO HS@209908/06/20 [History] Menthol [Pickens] 7.5 mg MM Q2H PRN 08/06/20 [History] Ocusoft Eyelid Cleansin Pad 1 applic BOTH EYES Q48H 08/06/20 [History] Potassium Chloride 10 meq PO DAILY@1200 08/06/20 [History] Sertraline HCl [Zoloft] 100 mg PO DAILY@0700 08/06/20 [History] Sodium Chloride [Saline Mist] 1 spray EA NOSTRIL Q2H PRN 08/06/20 [History] bisacodyL [Bisacodyl] 10 mg RECTAL Q72H PRN 08/06/20 [History] guaiFENesin [Diabetic Tussin Ex] 200 mg PO Q4H PRN 08/06/20 [History] metOLazone [Zaroxolyn] 5 mg PO MOWEFR@0700 08/06/20 [History] ALPRAZolam [Xanax] 0.25 mg PO BID@0700,1900 #6 tab 08/14/20 [Rx] Albuterol Nebulized [Ventolin Nebulized] 2.5 mg INHALATION RT-QID ml 08/14/20 [Rx] Albuterol Nebulized [Ventolin Nebulized] 2.5 mg INHALATION RT-QID PRN ml 08/14/20 [Rx] Cefuroxime Axetil [Ceftin] 500 mg PO BID 7 Days #14 tab 08/14/20 [Rx] Darbepoetin Josh [Aranesp] 40 mcg SQ Q7D syringe 08/14/20 [Rx] Metoprolol Tartrate [Lopressor] 12.5 mg PO BID tab 08/14/20 [Rx] Midodrine [ProAmatine] 5 mg PO AC-TID tab 08/14/20 [Rx] Pregabalin [Lyrica] 75 mg PO BID@0700,2000 #10 cap 08/14/20 [Rx] Torsemide [Demadex] 20 mg PO BID@0900,1600 tab 08/14/20 [Rx] traMADol HCL 50 mg PO Q6H PRN #10 tab 08/14/20 [Rx] Follow up Appointment(s)/Referral(s): [facility], [NON-STAFF] - 1-2 Days Ambulatory/Diagnostic Orders: Basic Metabolic Panel [LAB.AMB] Time Frame: 3 Days, Location: None Selected Activity/Diet/Wound Care/Special Instructions: Patient is going to [facility] Activity as tolerated Repeat BMP in 2-3 days to monitor kidney functions Continue with antibiotics for 7 days and then may discontinue Continue with dysphasia 3 chopped diet and consistent carb Continue to monitor blood sugars before meals and at bedtime and treat accordingly with sliding scale Continue with Glucerna 3 times daily with meals, patient likes norbertilla Patient to follow-up outpatient at the wound care center Follow-up outpatient with nephrology Discharge Disposition: TRANSFER TO SNF/F
[2020-08-14 13:28] LABS: Anisocytosis (M) 2+; Basophils # (A) 0.05 X 10*3/uL (0.00-0.10); Basophils % (A) 0.6 %; Eosinophils % (A) 3.9 %; Lymphocytes # (A) 2.43 X 10*3/uL (0.90-5.00); Lymphocytes % (A) 31.6 %; Monocytes # (A) 0.75 X 10*3/uL (0.20-1.00); Monocytes % (A) 9.7 %; Neutrophils # (A) 3.96 X 10*3/uL (1.80-7.70); Neutrophils % (A) 51.5 %; Stomatocytes 2+
--- NOTE | 2020-08-14 14:01 | P.PN ---
Subjective Patient is seen in follow-up for chronic kidney disease. Renal function stable. Maintained on oral torsemide. Edema gradually improving. Nonoliguric. Has a Vera catheter. Blood pressure well controlled this morning. Oral intake fair. No chest pain or shortness of breath. Vital signs stable. General: The patient appeared well nourished and normally developed. HEENT: Head exam is unremarkable. Neck is without jugular venous distension. LUNGS: Breath sounds decreased. HEART: Rate and Rhythm are regular. ABDOMEN: Soft, nontender. Obese. EXTREMITITES: 1+ edema. Erythema noted. No drainage. Objective - Vital Signs Vital signs: Vital Signs Temp 97.5 F L 08/14/20 06:20 Pulse 66 08/14/20 11:56 Resp 16 08/14/20 06:20 BP 119/72 08/14/20 11:27 Pulse Ox 94 L 08/14/20 13:10 Intake & Output 08/13/20 08/14/20 08/14/20 18:59 06:59 18:59 Output Total 1275 Balance -1275 Weight 127.5 kg Output: Urine 1275 Other: Voiding Method Indwelling Catheter Indwelling Catheter Indwelling Catheter # Voids 600 # Bowel Movements 1 - Labs CBC & Chem 7: 08/14/20 05:54 08/14/20 05:54 Labs: Abnormal Lab Results - Last 24 Hours (Table) 08/13/20 08/14/20 08/14/20 Range/Units 20:44 05:54 05:54 RBC 2.95 L (4.10-5.20) X 10*6/uL Hgb 9.0 L (12.0-15.0) g/dL Hct 31.0 L (37.2-46.3) % MCV 105.1 H (80.0-97.0) fL MCHC 29.0 L (32.0-37.0) g/dL RDW 16.9 H (11.5-14.5) % Absolute Nucleated RBC 0.08 H (0.00-0.00) X 10*3/uL Immature Gran # 0.21 H (0.00-0.04) X 10*3/uL NRBC/100 WBC Diff 1.0 H (0.0-0.0) /100 WBCS Chloride 94 L (96-109) mmol/L Carbon Dioxide 38.8 H (21.6-31.8) mmol/L BUN 79.0 H (9.0-27.0) mg/dL Creatinine 2.1 H (0.6-1.5) mg/dL Est GFR (CKD-EPI)AfAm 28.1 L (60.0-200.0) Est GFR (CKD-EPI)NonAf 24.3 L (60.0-200.0) BUN/Creatinine Ratio 37.62 H (12.00-20.00) Ratio Glucose 142 H (70-110) mg/dL POC Glucose (mg/dL) 296 H (75-99) mg/dL 08/14/20 08/14/20 Range/Units 07:32 12:10 RBC (4.10-5.20) X 10*6/uL Hgb (12.0-15.0) g/dL Hct (37.2-46.3) % MCV (80.0-97.0) fL MCHC (32.0-37.0) g/dL RDW (11.5-14.5) % Absolute Nucleated RBC (0.00-0.00) X 10*3/uL Immature Gran # (0.00-0.04) X 10*3/uL NRBC/100 WBC Diff (0.0-0.0) /100 WBCS Chloride (96-109) mmol/L Carbon Dioxide (21.6-31.8) mmol/L BUN (9.0-27.0) mg/dL Creatinine (0.6-1.5) mg/dL Est GFR (CKD-EPI)AfAm (60.0-200.0) Est GFR (CKD-EPI)NonAf (60.0-200.0) BUN/Creatinine Ratio (12.00-20.00) Ratio Glucose (70-110) mg/dL POC Glucose (mg/dL) 126 H 168 H (75-99) mg/dL Assessment and Plan Plan: Assessment: 1. Chronic kidney disease stage IV secondary to nephrosclerosis and cardiorenal syndrome. Renal function stable. Creatinine 2.1 today. 2. Acute on chronic diastolic CHF. 3. Volume overload. Improving with diuresis. 4. Lower extremity cellulitis maintained on antibiotics. Infectious disease following. 5. Anemia of chronic kidney disease maintained on Aranesp. Iron sat 23%. 6. Diabetes mellitus. 7. Hypokalemia from diuresis. Status post placement. Better. 8. Hypomagnesemia from diuresis. Status post placement. Better. Plan: Maintain oral diuretics. 1500 mL fluid restriction. Continue to monitor renal function and urine output. Avoid nephrotoxins. Maintain midodrine. Cortisol normal. Anticipate discharge soon. Follow up outpatient in 7-10 days.
[2020-08-14 15:23] VITALS: BP 138/66; PULSE 75; TEMP 97.7
--- NOTE | 2020-08-14 16:07 | PN ---
PROGRESS NOTE DATE OF SERVICE: 08/14/2020 REASON FOR FOLLOWUP: Cellulitis and UTI. INTERVAL HISTORY: The patient is currently afebrile. patient is breathing comfortably. Denies having any chest pain or any cough. No abdominal pain or pain to the lower extremity. PHYSICAL EXAMINATION: Blood pressure 138/66, pulse of 75, temperature is 97.7. She is 91% on room air. General description is a middle-aged female lying in bed in no distress. RESPIRATORY SYSTEM: Unlabored breathing, clear to auscultation anteriorly. HEART: S1, S2. Regular rate and rhythm. ABDOMEN: Soft, no tenderness. LABS: Hemoglobin is 9, white count 7.70. Creatinine is 2.1. DIAGNOSTIC IMPRESSION AND PLAN: Patient admitted to the hospital with concern for lower extremity cellulitis and urinary tract infection, overall improvement. Finish therapy with oral Ceftin and close outpatient followup. MMODL / IJN: [id number] /
[2020-08-20] MEDS ORDERED: ERGOCALCIFEROL 1,250 MCG (50,000 IU) CAPSULE PO SCH (09:00)
== END 2020-08-14 16:30 | DRG 871 ==
LOC: 4SSUR 19:34 → 3SCARD 22:57 → 4SSUR 08-11 09:26
PROVIDERS: ADMIT Hospitalist; ATTEND Hospitalist
DX: A41.9 Sepsis, unspecified organism (principal); G93.41 Metabolic encephalopathy; I50.33 Acute on chronic diastolic (congestive) heart failure; E87.1 Hypo-osmolality and hyponatremia; I13.0 Hypertensive heart and chronic kidney disease with heart failure and stage 1 through stage 4 chronic kidney disease, or unspecified chronic kidney disease; I69.351 Hemiplegia and hemiparesis following cerebral infarction affecting right dominant side; J98.11 Atelectasis; L03.115 Cellulitis of right lower limb; L03.116 Cellulitis of left lower limb; L97.919 Non-pressure chronic ulcer of unspecified part of right lower leg with unspecified severity; N17.9 Acute kidney failure, unspecified; N18.4 Chronic kidney disease, stage 4 (severe); N39.0 Urinary tract infection, site not specified; R47.01 Aphasia; Z68.43 Body mass index [BMI] 50.0-59.9, adult; D63.1 Anemia in chronic kidney disease; E11.22 Type 2 diabetes mellitus with diabetic chronic kidney disease; E66.01 Morbid (severe) obesity due to excess calories; E83.42 Hypomagnesemia; E87.6 Hypokalemia; F32.9 Major depressive disorder, single episode, unspecified; F41.9 Anxiety disorder, unspecified; Z66 Do not resuscitate; I25.10 Atherosclerotic heart disease of native coronary artery without angina pectoris; I48.0 Paroxysmal atrial fibrillation; I69.322 Dysarthria following cerebral infarction; I69.391 Dysphagia following cerebral infarction; R13.10 Dysphagia, unspecified; S91.301A Unspecified open wound, right foot, initial encounter; J44.9 Chronic obstructive pulmonary disease, unspecified; Z79.01 Long term (current) use of anticoagulants; Z79.4 Long term (current) use of insulin; Z79.899 Other long term (current) drug therapy; Z86.711 Personal history of pulmonary embolism; Z86.718 Personal history of other venous thrombosis and embolism; Z88.0 Allergy status to penicillin; Z88.2 Allergy status to sulfonamides; Z88.8 Allergy status to other drugs, medicaments and biological substances; Z91.041 Radiographic dye allergy status; Z90.89 Acquired absence of other organs
CPT/HCPCS: 71045; 80048; 80053; 81001; 82533; 83540; 83550; 83605; 83735; 84484; 85025; 85610; 87040; 87086; 87635; 93005; 93306; 93970; 94640; 94760

== ENCOUNTER 2020-11-28 17:58 | Inpatient (IN) | payer MEDICARE, OTHER ==
--- NOTE | 2020-11-28 18:27 | ED ---
General Adult HPI - General Chief complaint: Seizure Stated complaint: Seizure Time Seen by Provider: 11/28/20 18:00 Source: patient, EMS, RN notes reviewed Mode of arrival: EMS Limitations: altered mental status, physical limitation - History of Present Illness Initial comments: Patient is a pleasant 7 he 5-year-old female [facility] and renal L year. Patient was at a nursing facility near [place]. Patient did have shaking activity followed by decreased responsiveness. Patient then returned to her baseline while at [place] emergency department. They did have concern for possible new-onset seizure. Patient also had worsening renal insufficiency, BUN 141 and creatinine 3.5. Patient is extremely poor historian and offers no significant history. Patient can answer yes and no and seems fairly reliable. - Related Data Home Medications Medication Instructions Recorded Confirmed allopurinoL [Zyloprim] 200 mg PO DAILY@0700 07/24/17 08/06/20 Fluorometholone 0.1% Ophth Juanita 1 drop RIGHT EYE DAILY@1200 08/30/18 08/06/20 [Fml] Insulin Glargine [Lantus] 45 unit SQ DAILY@209908/30/18 08/06/20 Latanoprost/Pf [Latanoprost 0.005% 1 drop BOTH EYES DAILY@199908/30/18 08/06/20 Eye Drop] Magnesium Hydroxide [Milk of 2,400 mg PO Q48H PRN 08/30/18 08/06/20 Magnesia] Nitroglycerin Sl Tabs [Nitrostat] 0.4 mg SL Q5M PRN 08/30/18 08/06/20 Omeprazole 20 mg PO DAILY@0700 08/30/18 08/06/20 Ondansetron HCl [Zofran] 4 mg PO Q6H 08/30/18 08/06/20 Pioglitazone [Actos] 30 mg PO DAILY@0700 08/30/18 08/06/20 Acetaminophen Tab [Tylenol] 650 mg PO Q8H 08/06/20 08/06/20 Apixaban [Eliquis] 2.5 mg PO BID@0700,1700 08/06/20 08/06/20 Atropine Ophth Soln 1% 5Ml [Isopto 2 drops SUBLINGUAL Q2H PRN 08/06/20 08/06/20 Atropine 1% 5Ml] Bisacodyl 10 mg PO Q72H PRN 08/06/20 08/06/20 Dorzolamide/Timolol/Pf [Cosopt Pf 1 drop BOTH EYES BID@0700,2100 08/06/20 08/06/20 2%/0.5% Ophth Droperette] Fluticasone Nasal [place] [Flonase 1 spr EA NOSTRIL DAILY@0700 08/06/20 08/06/20 Nasal [place]] Liquical 30 ml PO BID@0900,1700 08/06/20 08/06/20 Loratadine 10 mg PO DAILY@0700 08/06/20 08/06/20 Melatonin 5 mg PO HS@2100 08/06/20 08/06/20 Menthol [Binger] 7.5 mg MM Q2H PRN 08/06/20 08/06/20 Ocusoft Eyelid Cleansin Pad 1 applic BOTH EYES Q48H 08/06/20 08/06/20 Potassium Chloride 10 meq PO DAILY@1200 08/06/20 08/06/20 Sertraline HCl [Zoloft] 100 mg PO DAILY@0700 08/06/20 08/06/20 Sodium Chloride [Saline Mist] 1 spray EA NOSTRIL Q2H PRN 08/06/20 08/06/20 bisacodyL [Bisacodyl] 10 mg RECTAL Q72H PRN 08/06/20 08/06/20 guaiFENesin [Diabetic Tussin Ex] 200 mg PO Q4H PRN 08/06/20 08/06/20 metOLazone [Zaroxolyn] 5 mg PO MOWEFR@0708/06/20 08/06/20 Previous Rx's Medication Instructions Recorded ALPRAZolam [Xanax] 0.25 mg PO BID@0700,1900 #6 tab 08/14/20 Albuterol Nebulized [Ventolin 2.5 mg INHALATION RT-QID ml 08/14/20 Nebulized] Albuterol Nebulized [Ventolin 2.5 mg INHALATION RT-QID PRN ml 08/14/20 Nebulized] Cefuroxime Axetil [Ceftin] 500 mg PO BID 7 Days #14 tab 08/14/20 Darbepoetin Josh [Aranesp] 40 mcg SQ Q7D syringe 08/14/20 Metoprolol Tartrate [Lopressor] 12.5 mg PO BID tab 08/14/20 Midodrine [ProAmatine] 5 mg PO AC-TID tab 08/14/20 Pregabalin [Lyrica] 75 mg PO BID@0700,2000 #10 cap 08/14/20 Torsemide [Demadex] 20 mg PO BID@0900,1600 tab 08/14/20 traMADol HCL 50 mg PO Q6H PRN #10 tab 08/14/20 Allergies Allergy/AdvReac Type Severity Reaction Status Date / Time Iodinated Contrast Media Allergy Rash/Hives Verified 08/06/20 21:40 Penicillins Allergy Rash/Hives Verified 08/06/20 21:40 tuberculin,PPD,multi-puncture Allergy Unknown Verified 08/06/20 21:40 warfarin Allergy Unknown Verified 08/06/20 21:40 codeine AdvReac Itching Verified 08/06/20 21:40 muscle rub Allergy Unknown Uncoded 08/06/20 21:40 Review of Systems ROS Statement: Those systems with pertinent positive or pertinent negative responses have been documented in the HPI. Limitations: ROS unobtainable due to patients medical condition Past Medical History Past Medical History: Coronary Artery Disease (CAD), Heart Failure, CVA/TIA, Diabetes Mellitus, Deep Vein Thrombosis (DVT), GERD/Reflux, Hypertension, Pulmonary Embolus (PE), Renal Disease Additional Past Medical History / Comment(s): tremmors, right sided weakness from CVA. Immobile uses hiral lift at [facility]. History of Any Multi-Drug Resistant Organisms: None Reported Past Surgical History: Tonsillectomy Additional Past Surgical History / Comment(s): G tube, pressure pump right eye Past Anesthesia/Blood Transfusion Reactions: No Reported Reaction Past Psychological History: Anxiety, Depression Smoking Status: Never smoker Past Alcohol Use History: None Reported Past Drug Use History: None Reported - Past Family History Father History Unknown: Yes Family Medical History: No Reported History, Unable to Obtain Mother History Unknown: Yes Family Medical History: No Reported History, Unable to Obtain General Exam Limitations: altered mental status, physical limitation General appearance: alert Head exam: Present: normocephalic Eye exam: Present: normal appearance, PERRL ENT exam: Present: normal oropharynx Neck exam: Present: normal inspection. Absent: tenderness Respiratory exam: Present: normal lung sounds bilaterally Cardiovascular Exam: Present: regular rate, normal rhythm GI/Abdominal exam: Present: soft. Absent: tenderness Extremities exam: Present: normal inspection Neurological exam: Present: alert, altered Expanded Neurological exam: Present: protecting the airway Patient oriented to: Present: person. Absent: place, time Motor strength exam: RUE: 0, LUE: 5, RLE: 0, LLE: 4 Eye Response: (4) open spontaneously Motor Response: (6) obeys commands Verbal Response: (4) confused conversation Psychiatric exam: Present: normal affect, normal mood Skin exam: Present: normal color Course Vital Signs 11/28/20 18:14 Temperature 98.8 F Pulse Rate 88 Respiratory 18 Rate Blood Pressure 139/80 O2 Sat by Pulse 99 Oximetry Medical Decision Making - Medical Decision Making Case was discussed in detail with Dr. Guevara, covering for Dr. Lopez, who will admit. Patient updated. Disposition Clinical Impression: New onset seizure, Acute renal failure (ARF) Disposition: ADMITTED IP TO THIS HOSP Condition: Serious Instructions (If sedation given, give patient instructions): Seizure/Epilepsy Discharge Instructions & Follow-Up Is patient prescribed a controlled substance at d/c from ED?: No Referrals: Mina Lopez MD [Primary Care Provider] - 1-2 days Decision Time: 18:47
[2020-11-28] MEDS ORDERED: NALOXONE 0.4 MG/ML 1 ML VIAL IV PRN (18:47)
[2020-11-28] MEDS ORDERED: LORazepam 2 MG/ML INJ IV PRN (18:47)
[2020-11-28] MEDS ORDERED: guaiFENesin SYRUP 100MG/5ML 200 MG/10 ML CUP PO PRN (21:15)
[2020-11-28] MEDS ORDERED: ATROPINE OPHTH SOLN 1% 5ML BTL SUBLINGUAL PRN (21:15)
[2020-11-28] MEDS ORDERED: SODIUM CHLORIDE 0.65% NASAL SPRAY 44 ML BTL NASAL PRN (21:15)
[2020-11-28] MEDS ORDERED: NITROGLYCERIN SL TABS 0.4 MG TAB SUBLINGUAL PRN (21:15)
[2020-11-28] MEDS ORDERED: traMADol 50 MG TAB PO PRN (21:15)
[2020-11-28] MEDS ORDERED: ALBUTEROL NEBULIZED 2.5 MG/3 ML INHALATION PRN (21:15)
[2020-11-28] MEDS ORDERED: bisacodyL 5 MG TABLET.DR PO PRN (21:15)
[2020-11-28] MEDS ORDERED: metOLazone 5 MG TAB PO SCH (21:15)
[2020-11-28] MEDS ORDERED: INSULIN DETEMIR (LEVEMIR) 100 UNIT/ML SYR SQ SCH (21:30)
--- NOTE | 2020-11-28 22:21 | P.HPIM ---
History of Present Illness H&P Date: 11/28/20 Chief Complaint: Possible seizure History of presenting complaint: This is a 65-year-old patient who follows with Dr. Mina Lopez. Patient is a resident at [facility]. 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 Patient was being given a shower and then noticed that patient became unresponsive status stating. Started twitching. After sometime the patient did improve. Patient at baseline has noted to be having some tremors. Patient was found to have an elevated BUN/creatinine of 141 and 3.6. Patient is transferred here for further workup. Denies any fever and chills. Appetite otherwise fair. Denies any history of head injury or any prior history of seizure. Review of systems: GEN.: Tired EYES: None HEENT: None NECK: None RESPIRATORY: None CARDIOVASCULAR: None GASTROINTESTINAL: None GENITOURINARY: None MUSCULOSKELETAL: Some joint pains LYMPHATICS: None HEMATOLOGICAL: None PSYCHIATRY: None NEUROLOGICAL: As above Past medical history to include: Chronic kidney disease stage IV from nephrosclerosis, coronary artery disease, right-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 Currently a resident at [facility]. Nonambulatory. Family history: Reviewed, noncontributory to presentation Physical examination: VITAL SIGNS: 98.8, 88, 18, 139/80, 99% on 2 L GENERAL: BMI 49.4, laying in bed, eating a sandwich, tremors on the left side. EYES: Pupils equal. Conjunctiva normal. HEENT: External appearance of nose and ears normal, oral cavity grossly normal. NECK: Short and thick, JVD unable to assess; masses not palpable. HEART: Distant heart sounds no edema. LUNGS: Respiratory rate increased, distant breath sounds. ABDOMEN: Soft, nontender, liver spleen not palpable, no masses palpable. PSYCH: [Alert and oriented x3; mood and affect slightly anxious l. NEUROLOGICAL: Cranial nerves grossly intact; no facial asymmetry, power and sensation grossly intact. Coarse tremor on the left side, left arm LYMPHATICS: No lymph nodes palpable in the axilla and neck INVESTIGATIONS, reviewed in the clinical context: [From [facility]] Sodium 143 potassium 3.8 BUN 4 and 41 and creatinine 3.6 albumin 3.9 calcium 9.2 vitamin B12 143 TSH 2.46 magnesia 1.3 phosphorus 5.3 WBC 8.8 hemoglobin 9.8 platelets 220 Assessment and plan: -New onset of seizures with no prior history of the same. No history of head injury. The patient had a prior stroke which can be a focus with the same. This is patient's first episode. Also electrolyte abnormalities because of worsening renal failure could precipitate the same. Order EEG. Neurology consultation. Seizure precautions. -Acute kidney injury worsening, possibly prerenal Hold off diuretics for now. Gentle hydration. Consult nephrology -Chronic kidney disease stage IV from nephrosclerosis Follow electrolytes -Coronary artery disease with prior history of stent Continue with Coreg -Right hemiparesis from prior stroke -Diabetes mellitus type 2, chronically on insulin Resume Lantus at 40 units at night and 20 units of NovoLog with meals. Victoza is not available in the hospital -GERD Continue PPI -Hyperuricemia Continue allopurinol -Essential hypertension Continue Lopressor -Chronic medical debility at her baseline. Does use a higher lift -Morbid obesity BMI 49.4 Weight loss measures and follow-up with PCP -Anxiety depression otherwise specified Continue with Zoloft -Normocytic anemia of chronic kidney disease Follow H&H -Obesity hypoventilation syndrome likely with restrictive lung disease from the same Continue with Ventolin nebulizer Care was discussed with the patient. Home medications resumed. Consultation to nephrology and neurology. Seizure precautions. Fall precautions. Past Medical History Past Medical History: Coronary Artery Disease (CAD), Heart Failure, CVA/TIA, Diabetes Mellitus, Deep Vein Thrombosis (DVT), GERD/Reflux, Hypertension, Pulmonary Embolus (PE), Renal Disease Additional Past Medical History / Comment(s): tremmors, right sided weakness from CVA. Immobile uses fany lift at [facility]. History of Any Multi-Drug Resistant Organisms: None Reported Past Surgical History: Tonsillectomy Additional Past Surgical History / Comment(s): G tube, pressure pump right eye Past Anesthesia/Blood Transfusion Reactions: No Reported Reaction Past Psychological History: Anxiety, Depression Smoking Status: Never smoker Past Alcohol Use History: None Reported Past Drug Use History: None Reported - Past Family History Father History Unknown: Yes Family Medical History: No Reported History, Unable to Obtain Mother History Unknown: Yes Family Medical History: No Reported History, Unable to Obtain Medications and Allergies Home Medications Medication Instructions Recorded Confirmed Type allopurinoL [Zyloprim] 200 mg PO DAILY 07/24/17 11/28/20 History Fluorometholone 0.1% Ophth Juanita 1 drop RIGHT EYE DAILY 08/30/18 11/28/20 History [Fml] Insulin Glargine [Lantus] 36 unit SQ BID 08/30/18 11/28/20 History Latanoprost/Pf [Latanoprost 0.005% 1 drop BOTH EYES DAILY 08/30/18 11/28/20 History Eye Drop] Magnesium Hydroxide [Milk of 2,400 mg PO Q48H PRN 08/30/18 11/28/20 History Magnesia] Nitroglycerin Sl Tabs [Nitrostat] 0.4 mg SL Q5M PRN 08/30/18 11/28/20 History Omeprazole 20 mg PO DAILY 08/30/18 11/28/20 History Ondansetron HCl [Zofran] 4 mg PO Q6H PRN 08/30/18 11/28/20 History Acetaminophen Tab [Tylenol] 650 mg PO Q6H 08/06/20 11/28/20 History Apixaban [Eliquis] 2.5 mg PO BID 08/06/20 11/28/20 History Atropine Ophth Soln 1% 5Ml [Isopto 2 drops SUBLINGUAL Q2H PRN 08/06/20 11/28/20 History Atropine 1% 5Ml] Bisacodyl 10 mg PO Q72H PRN 08/06/20 11/28/20 History Dorzolamide/Timolol/Pf [Cosopt Pf 1 drop BOTH EYES BID 08/06/20 11/28/20 History 2%/0.5% Ophth Droperette] Fluticasone Nasal [place] [Flonase 1 spr EA NOSTRIL DAILY 08/06/20 11/28/20 History Nasal [place]] Loratadine 10 mg PO DAILY 08/06/20 11/28/20 History Melatonin 5 mg PO HS 08/06/20 11/28/20 History Potassium Chloride 10 meq PO DAILY 08/06/20 11/28/20 History Sertraline HCl [Zoloft] 100 mg PO DAILY 08/06/20 11/28/20 History Sodium Chloride [Saline Mist] 1 spray EA NOSTRIL Q2H PRN 08/06/20 11/28/20 History bisacodyL [Bisacodyl] 10 mg RECTAL Q72H PRN 08/06/20 11/28/20 History guaiFENesin [Diabetic Tussin Ex] 200 mg PO Q4H PRN 08/06/20 11/28/20 History metOLazone [Zaroxolyn] 5 mg PO MOWEFR 08/06/20 11/28/20 History Albuterol Nebulized [Ventolin 2.5 mg INHALATION RT-QID ml 08/14/20 11/28/20 Rx Nebulized] Metoprolol Tartrate [Lopressor] 12.5 mg PO BID tab 08/14/20 11/28/20 Rx traMADol HCL 50 mg PO Q6H PRN #10 tab 08/14/20 11/28/20 Rx ALPRAZolam [Xanax] 0.25 mg PO DAILY 11/28/20 11/28/20 History Albuterol Nebulized [Ventolin 2.5 mg INHALATION RT-QID PRN 11/28/20 11/28/20 History Nebulized] Collagenase [Santyl] 1 applic TOPICAL DAILY 11/28/20 11/28/20 History Epoetin Josh [Procrit] 20,000 units SQ Q14D 11/28/20 11/28/20 History [place] 5mg Menthol Cough Lozenge 1 lozenge MM Q2H PRN 11/28/20 11/28/20 History Insulin Aspart [NovoLOG Flexpen] 20 units SQ AC-TID 11/28/20 11/28/20 History Insulin Aspart [NovoLOG Flexpen] See Protocol SQ AC-TID 11/28/20 11/28/20 History Liquicel 30 ml PO BID 11/28/20 11/28/20 History Liraglutide [Victoza 3-Jose] 1.8 mg SQ DAILY 11/28/20 11/28/20 History Midodrine [ProAmatine] 5 mg PO TID 11/28/20 11/28/20 History Pregabalin [Lyrica] 75 mg PO BID 11/28/20 11/28/20 History Torsemide [Demadex] 20 mg PO BID 11/28/20 11/28/20 History carvediloL [Coreg] 3.125 mg PO BID 11/28/20 11/28/20 History Allergies Allergy/AdvReac Type Severity Reaction Status Date / Time ceresin [From Eucerin] Allergy Unknown Verified 11/28/20 19:50 emollient combination no.33 Allergy Unknown Verified 11/28/20 19:50 [From Eucerin] Iodinated Contrast Media Allergy Rash/Hives Verified 08/06/20 21:40 isopropyl myristate Allergy Unknown Verified 11/28/20 19:50 [From Eucerin] lanolin alcohols Allergy Unknown Verified 11/28/20 19:50 [From Eucerin] mineral oil [From Eucerin] Allergy Unknown Verified 11/28/20 19:50 Penicillins Allergy Rash/Hives Verified 08/06/20 21:40 petrolatum,white Allergy Unknown Verified 11/28/20 19:50 [From Eucerin] soap [From Eucerin] Allergy Unknown Verified 11/28/20 19:50 tuberculin,PPD,multi-puncture Allergy Unknown Verified 08/06/20 21:40 warfarin Allergy Unknown Verified 08/06/20 21:40 water [From Eucerin] Allergy Unknown Verified 11/28/20 19:50 codeine AdvReac Itching Verified 08/06/20 21:40 muscle rub Allergy Unknown Uncoded 08/06/20 21:40 Physical Exam Vitals: Vital Signs Temp Pulse Resp BP Pulse Ox 11/28/20 18:14 98.8 F 88 18 139/80 99 Intake and Output 11/28/20 11/28/20 11/28/20 06:59 14:59 22:59 Other: Weight 130.635 kg
[2020-11-28 23:17] LABS: Glucose,Whole Blood 255 mg/dL (75-99)
[2020-11-28] MEDS: SODIUM CHLORIDE 0.9% 1,000 ML IV SCH (23:24)
[2020-11-28] MEDS: APIXABAN 2.5 MG TABLET PO SCH (23:24)
[2020-11-28] MEDS: carvediloL 3.125 MG TAB PO SCH (23:25)
[2020-11-28] MEDS: MIDODRINE 5 MG TAB PO SCH (23:25)
[2020-11-28] MEDS: PREGABALIN 75 MG CAP PO SCH (23:25)
[2020-11-28] MEDS: ACETAMINOPHEN TAB 325 MG TAB PO SCH (23:26)
[2020-11-29] MEDS: ACETAMINOPHEN TAB 325 MG TAB PO SCH ×4 (03:35→21:12)
[2020-11-29] MEDS: TIMOLOL 0.5% OPHTH DROPS 5 ML BTL BOTH EYES SCH ×3 (03:36→21:11)
[2020-11-29] MEDS: DORZOLAMIDE HCL 2% DROPS 10 ML BTL BOTH EYES SCH ×3 (03:37→21:11)
[2020-11-29 06:35] LABS: Anisocytosis Slight; Basophils # (A) 0.1 k/uL (0-0.2); Basophils % (A) 1 %; Eosinophils # (A) 0.3 k/uL (0-0.7); Eosinophils % (A) 3 %; HCT 29.1 % (34.0-46.0); HGB 9.2 gm/dL (11.4-16.0); Hypochromasia Moderate; Lymphocytes # (A) 1.3 k/uL (1.0-4.8); Lymphocytes % (A) 13 %; MCHC 31.7 g/dL (31.0-37.0); MCV 94.5 fL (80.0-100.0); Mean Platelet Volume 9.3; Monocytes # (A) 0.5 k/uL (0-1.0); Monocytes % (A) 5 %; Neutrophils # (A) 7.6 k/uL (1.3-7.7); Neutrophils % (A) 78 %; Platelet Count 210 k/uL (150-450); RBC 3.08 m/uL (3.80-5.40); RDW 17.6 % (11.5-15.5); WBC 9.7 k/uL (3.8-10.6)
[2020-11-29 07:12] LABS: Albumin 3.2 g/dL (3.5-5.0); Calcium 8.8 mg/dL (8.4-10.2); Magnesium 1.4 mg/dL (1.6-2.3); Potassium 3.9 mmol/L (3.5-5.1); Total Bilirubin 0.5 mg/dL (0.2-1.3); Total Protein 5.6 g/dL (6.3-8.2)
[2020-11-29] MEDS: ALBUTEROL NEBULIZED 2.5 MG/3 ML INHALATION SCH ×4 (07:58→20:11)
[2020-11-29] MEDS: SODIUM CHLORIDE 0.9% 1,000 ML IV SCH ×3 (08:16→21:13)
[2020-11-29] MEDS: SERTRALINE 100 MG TAB PO SCH (08:17)
[2020-11-29] MEDS: PANTOPRAZOLE 40 MG TABLET PO SCH (08:17)
[2020-11-29] MEDS: allopurinoL 100 MG TAB PO SCH (08:17)
[2020-11-29] MEDS: APIXABAN 2.5 MG TABLET PO SCH ×2 (08:19→21:12)
[2020-11-29] MEDS: MIDODRINE 5 MG TAB PO SCH ×3 (08:19→21:12)
[2020-11-29] MEDS: carvediloL 3.125 MG TAB PO SCH ×2 (08:19→21:12)
[2020-11-29 08:35] LABS: Glucose,Whole Blood 293 mg/dL (75-99)
[2020-11-29] MEDS ORDERED: COLLAGENASE 250 UNIT/GM OINTMENT 30 GM TUBE TOPICAL SCH (09:00)
[2020-11-29] MEDS ORDERED: LIQUICEL PO SCH (09:00)
[2020-11-29] MEDS: INSULIN ASPART (NovoLOG) 100 UNIT/ML VIAL SQ SCH ×4 (10:25→21:12)
[2020-11-29] MEDS: PREGABALIN 75 MG CAP PO SCH (10:25)
[2020-11-29 12:19] LABS: Glucose,Whole Blood 339 mg/dL (75-99)
[2020-11-29] MEDS: LATANOPROST 0.005% OPHTH DROPS 2.5 ML BTL BOTH EYES SCH (12:32)
[2020-11-29] MEDS: FLUOROMETHOLONE 0.1% OPHTH DROPS 5 ML BTL RIGHT EYE SCH (12:34)
--- NOTE | 2020-11-29 12:46 | EEG ---
ELECTROENCEPHALOGRAM REPORT DATE OF SERVICE: 11/29/2020 PREAMBLE: This is a 65-year-old female with history of a stroke, new onset seizure. This study is performed to evaluate for any epileptiform activity. EEG FINDING: This is a 21 channel routine EEG recording in a patient utilizing 10/20 international system with referential and bipolar montages. The recording starts and continues with presence of diffuse slow waves in mixed theta and delta range seen in bihemispheric region. Well-formed alpha activity not seen in the entire study. The background does not seem to be reactive to eye opening or closing. Frequent myogenic artifact was seen involving the left central parietal region. Photic driving response was not seen. Hyperventilation was not done. Different stages of sleep were not seen. No focal or generalized epileptiform activity was seen. IMPRESSION: This is an abnormal EEG due to background slowing of at least moderate degree. This is suggestive of generalized cerebral dysfunction as can be seen with toxic metabolic encephalopathy or due to diffuse structural brain abnormality. The EEG was technically limited due to presence of constant electrode artifact involving the C3 and P3 electrodes. Suggest a prolonged or sleep-deprived EEG if suspicion for seizures is high. MMODL / IJN: [id number] /
--- NOTE | 2020-11-29 14:29 | P.CNNES ---
History of Present Illness Consult date: 11/29/20 Requesting physician: Ricardo Luong Reason for Consult: Possible new onset seizure, episode of decreased responsiveness History of Present Illness: Patient is a 65-year-old female came to the hospital by ambulance yesterday at 6 PM., As a transfer from [facility] for an episode of altered mental status. Patient has history of a stroke with some expressive aphasia and right hemiplegia. Patient lives at the long-term nursing [facility], is bed bound. As per report from [facility], patient was getting a shower with the aide yesterday morning. She did not have her normal 2 L nasal cannula on. Gomez griffin had an episode of tremoring and unresponsiveness where she just had a blank stare. Patient was then 80% on room air. 2 L nasal cannula applied and improve her situation to 98%. When she arrived to the ER patient was back to baseline. When she arrived at [facility], her blood pressure was 166/97, pulse rate 84, respiration 18, saturation 98%. GCS was 15. Patient's blood test shows INR 1.04. PTT 26.6. Computed tomography scan of the head revealed extensive encephalomalacia within the left cerebral hemisphere suggesting old MCA territory infarct. No acute intracranial abnormality seen. If concern for possible acute ischemia, follow-up MRI. Opacification of the left mastoid air cells and partial opacification left middle ear cavity. Correlate for possible left sided otomastoiditis. EKG shows sinus rhythm. Patient was noted to have worsening renal functions. Patient's CBC shows WBC 8.8, hemoglobin 9.8, platelets 220. Folic acid 6.13 magnesium 1.3, TSH 2.46 free T4 0.9 normal. Sodium 143, potassium 3.8, BUN 141, creatinine 3.5. Hepatic panel normal. B12 743 which is normal. Vital signs on arrival blood pressure 139/80, pulse rate 88, temperature 98.8. Patient had a 2-D echo on 08/08/2020 which revealed technically difficult study, mild concentric LVH, EF is 55-60%. Aortic valve was not well visualized. Trace MR. Patient had an MRI of the brain on 02/05/2017 which revealed chronic infarct left MCA with associated aortic change within the affected and adjacent brain, mild ex vacuo dilation of the left lateral ventricle due to volume loss. Patient's current blood test shows normal WBC hemoglobin 9.2, platelets 210. Electrolytes are normal, BUN is 133, creatinine 3.08. Patient does have chronic renal failure as far as August 2018, but seems to have gotten worse. Patient's hemoglobin A1c 7.1 on 09/01/2018. Fitzpatrick virus PCR negative. Patient takes insulin, sertraline 100 mg, Zaroxolyn, melatonin 5 mg, Apixaban 2.5 mg twice a day, tramadol 50 mg every 6 hours when necessary, midodrine 5 mg 3 times a day, Demadex 20 mg twice a day Xanax 0.25 mg daily, Lyrica 75 mg twice a day carvedilol. Patient at present offers no complaints. She is laying comfortably in the bed. Patient has very slow mentation as per examination below. Review of Systems ROS unobtainable: due to mental status Past Medical History Past Medical History: Coronary Artery Disease (CAD), Heart Failure, CVA/TIA, Diabetes Mellitus, Deep Vein Thrombosis (DVT), GERD/Reflux, Hypertension, Pulmonary Embolus (PE), Renal Disease Additional Past Medical History / Comment(s): tremmors, right sided weakness from CVA. Immobile uses hiral lift at [facility]. History of Any Multi-Drug Resistant Organisms: None Reported Past Surgical History: Tonsillectomy Additional Past Surgical History / Comment(s): G tube, pressure pump right eye Past Anesthesia/Blood Transfusion Reactions: No Reported Reaction Past Psychological History: Anxiety, Depression Smoking Status: Never smoker Past Alcohol Use History: None Reported Past Drug Use History: None Reported - Past Family History Father History Unknown: Yes Family Medical History: No Reported History, Unable to Obtain Mother History Unknown: Yes Family Medical History: No Reported History, Unable to Obtain Medications and Allergies Home Medications Medication Instructions Recorded Confirmed Type allopurinoL [Zyloprim] 200 mg PO DAILY 07/24/17 11/28/20 History Fluorometholone 0.1% Ophth Juanita 1 drop RIGHT EYE DAILY 08/30/18 11/28/20 History [Fml] Insulin Glargine [Lantus] 36 unit SQ BID 08/30/18 11/28/20 History Latanoprost/Pf [Latanoprost 0.005% 1 drop BOTH EYES DAILY 08/30/18 11/28/20 History Eye Drop] Magnesium Hydroxide [Milk of 2,400 mg PO Q48H PRN 08/30/18 11/28/20 History Magnesia] Nitroglycerin Sl Tabs [Nitrostat] 0.4 mg SL Q5M PRN 08/30/18 11/28/20 History Omeprazole 20 mg PO DAILY 08/30/18 11/28/20 History Ondansetron HCl [Zofran] 4 mg PO Q6H PRN 08/30/18 11/28/20 History Acetaminophen Tab [Tylenol] 650 mg PO Q6H 08/06/20 11/28/20 History Apixaban [Eliquis] 2.5 mg PO BID 08/06/20 11/28/20 History Atropine Ophth Soln 1% 5Ml [Isopto 2 drops SUBLINGUAL Q2H PRN 08/06/20 11/28/20 History Atropine 1% 5Ml] Bisacodyl 10 mg PO Q72H PRN 08/06/20 11/28/20 History Dorzolamide/Timolol/Pf [Cosopt Pf 1 drop BOTH EYES BID 08/06/20 11/28/20 History 2%/0.5% Ophth Droperette] Fluticasone Nasal [place] [Flonase 1 spr EA NOSTRIL DAILY 08/06/20 11/28/20 History Nasal [place]] Loratadine 10 mg PO DAILY 08/06/20 11/28/20 History Melatonin 5 mg PO HS 08/06/20 11/28/20 History Potassium Chloride 10 meq PO DAILY 08/06/20 11/28/20 History Sertraline HCl [Zoloft] 100 mg PO DAILY 08/06/20 11/28/20 History Sodium Chloride [Saline Mist] 1 spray EA NOSTRIL Q2H PRN 08/06/20 11/28/20 History bisacodyL [Bisacodyl] 10 mg RECTAL Q72H PRN 08/06/20 11/28/20 History guaiFENesin [Diabetic Tussin Ex] 200 mg PO Q4H PRN 08/06/20 11/28/20 History metOLazone [Zaroxolyn] 5 mg PO MOWEFR 08/06/20 11/28/20 History Albuterol Nebulized [Ventolin 2.5 mg INHALATION RT-QID ml 08/14/20 11/28/20 Rx Nebulized] Metoprolol Tartrate [Lopressor] 12.5 mg PO BID tab 08/14/20 11/28/20 Rx traMADol HCL 50 mg PO Q6H PRN #10 tab 08/14/20 11/28/20 Rx ALPRAZolam [Xanax] 0.25 mg PO DAILY 11/28/20 11/28/20 History Albuterol Nebulized [Ventolin 2.5 mg INHALATION RT-QID PRN 11/28/20 11/28/20 History Nebulized] Collagenase [Santyl] 1 applic TOPICAL DAILY 11/28/20 11/28/20 History Epoetin Josh [Procrit] 20,000 units SQ Q14D 11/28/20 11/28/20 History [place] 5mg Menthol Cough Lozenge 1 lozenge MM Q2H PRN 11/28/20 11/28/20 History Insulin Aspart [NovoLOG Flexpen] 20 units SQ AC-TID 11/28/20 11/28/20 History Insulin Aspart [NovoLOG Flexpen] See Protocol SQ AC-TID 11/28/20 11/28/20 History Liquicel 30 ml PO BID 11/28/20 11/28/20 History Liraglutide [Victoza 3-Jose] 1.8 mg SQ DAILY 11/28/20 11/28/20 History Midodrine [ProAmatine] 5 mg PO TID 11/28/20 11/28/20 History Pregabalin [Lyrica] 75 mg PO BID 11/28/20 11/28/20 History Torsemide [Demadex] 20 mg PO BID 11/28/20 11/28/20 History carvediloL [Coreg] 3.125 mg PO BID 11/28/20 11/28/20 History Allergies Allergy/AdvReac Type Severity Reaction Status Date / Time ceresin [From Eucerin] Allergy Unknown Verified 11/28/20 19:50 emollient combination no.33 Allergy Unknown Verified 11/28/20 19:50 [From Eucerin] Iodinated Contrast Media Allergy Rash/Hives Verified 08/06/20 21:40 isopropyl myristate Allergy Unknown Verified 11/28/20 19:50 [From Eucerin] lanolin alcohols Allergy Unknown Verified 11/28/20 19:50 [From Eucerin] mineral oil [From Eucerin] Allergy Unknown Verified 11/28/20 19:50 Penicillins Allergy Rash/Hives Verified 08/06/20 21:40 petrolatum,white Allergy Unknown Verified 11/28/20 19:50 [From Eucerin] soap [From Eucerin] Allergy Unknown Verified 11/28/20 19:50 tuberculin,PPD,multi-puncture Allergy Unknown Verified 08/06/20 21:40 warfarin Allergy Unknown Verified 08/06/20 21:40 water [From Eucerin] Allergy Unknown Verified 11/28/20 19:50 codeine AdvReac Itching Verified 08/06/20 21:40 muscle rub Allergy Unknown Uncoded 08/06/20 21:40 Physical Examination - Vital Signs Vital Signs: Vital Signs Temp Pulse Resp BP Pulse Ox 11/29/20 10:28 98.8 F 80 16 132/59 98 11/29/20 08:10 94 11/29/20 08:01 92 11/29/20 07:16 93 16 109/61 95 11/29/20 06:28 92 16 103/54 96 11/28/20 23:22 92 16 150/79 97 11/28/20 18:14 98.8 F 88 18 139/80 99 Intake and Output 11/28/20 11/29/20 11/29/20 22:59 06:59 14:59 Output Total 800 Balance -800 Output: Urine 800 Other: Weight 130.635 kg Patient is an elderly female, laying comfortably in the bed. Patient has very slow mentation. She has prolonged latency time to answer any questions. She speaks limited words. She does follow commands although takes her time. Patient is alert awake. Patient states she lives in [facility]. She could not tell the month. She knows her name and her age 65. She is able to name objects like a pen, glasses. She would not repeat. Limited evaluation of Speech and language functions are normal. Patient did not speak much. Attention, concentration and fund of knowledge is very limited. On cranial examination, pupils are round and reacting to light, visual crisostomo reveals right-sided visual field neglect/deficit, extraocular muscles are intact with no nystagmus. Face has right-sided asymmetry, tongue protrudes to the midline. Palatal elevation and sensation could not be checked, hearing is moderately decreased and shoulder shrug decreased on the right, facial sensation normal. On muscle strength testing, patient is completely plegic in the right arm and right leg. On the left side, her deltoid is 5, accepts 5, triceps 5-, elevator constructor is 5. Patient is able to wiggle her left foot, and wiggle her left leg proximally. Deep tendon reflexes are slightly brisk on the right, plantars are flat. Patient is very sensitive. Sensory to touch is equal to touch. Cerebellar function showed no ataxia for [id number] testing on the left although it is slightly tremulous. Cannot perform on the right. Tone is increased on the right. Gait patient on ambulatory. On general examination, there is no carotid bruit or murmur, S1-S2 audible. Abdomen is soft nontender. Chest is clear. Patient has peripheral edema. Patient has some skin changes in the lower legs, right worse than left. Results - Laboratory Findings CBC and BMP: 11/29/20 06:09 11/29/20 06:09 Abnormal Lab Findings: Abnormal Labs 11/28/20 11/29/20 11/29/20 23:14 06:09 06:09 RBC 3.08 L Hgb 9.2 L Hct 29.1 L RDW 17.6 H Carbon Dioxide 37 H BUN 133 H* Creatinine 3.08 H Glucose 279 H POC Glucose (mg/dL) 255 H Magnesium 1.4 L Total Protein 5.6 L Albumin 3.2 L 11/29/20 08:34 RBC Hgb Hct RDW Carbon Dioxide BUN Creatinine Glucose POC Glucose (mg/dL) 293 H Magnesium Total Protein Albumin Assessment and Plan Assessment: * Episode of unresponsiveness with a blank stare, while taking shower. Possible focal seizure. Patient also is on tramadol, which can lower seizure threshold. * History of large MCA territory stroke, with some speech impediment and severe right hemiplegia. * Toxic metabolic encephalopathy, likely due to reasons below. * Acute on chronic renal failure * Hypertension * Diabetes * CAD * CHF * Morbid obesity * Folate deficiency * DO NOT RESUSCITATE. Plan: * Patient had an EEG performed today, which revealed background slowing of moderate degree. No epileptiform activity was seen. Patient does have history of left MCA territory stroke, which could be a focus of focal seizure. We will start Keppra 250 mg daily based upon her renal functions, and encephalopathy. * Stop tramadol. * We will check carotid Doppler. * B12 743, folate borderline 6.13 (performed at [facility]). We will start folate replacement. * Other medical management as per IM and other specialties. * I spoke to patient's sister and niece. They mentioned that patient had stroke on 01/26/2014. Patient had some seizure type spells after the stroke for which she was placed on Keppra. Patient subsequently has not had any seizure type spell for years. She underwent some testing and workup, which came back negative. Keppra was then discontinued. She has been off Keppra for the last 3 years.
--- NOTE | 2020-11-29 14:35 | XR ---
EXAMINATION TYPE: XR chest 1V DATE OF EXAM: 11/29/2020 COMPARISON: 08/10/2020 HISTORY: CHF TECHNIQUE: Single frontal view of the chest is obtained. FINDINGS: Low lung volumes. Overlying leads. Heart size is grossly enlarged. The right lung is clear. There is likely a left pleural effusion with possible adjacent airspace opacity suggestive of atelec tasis or pneumonia. No pneumothorax. IMPRESSION: 1. Low lung volumes. Heart size is enlarged. Left basilar airspace opacity suggestive of small pleura l effusion with adjacent atelectasis or developing pneumonia.
--- NOTE | 2020-11-29 15:31 | CONS ---
CONSULTATION REASON FOR CONSULT: Renal failure. HISTORY OF PRESENT ILLNESS: Patient is a 65-year-old female with chronic kidney disease NKF stage IV. Serum creatinine baseline around 2 mg/dL. The patient was admitted to the hospital as she was found unresponsive at the rehab facility. She denied any chest pain, shortness of breath. No significant nausea or vomiting. No history of fall. No history of seizures. Previous creatinine of 2.1 on 08/14/2020. The patient has voided. Blood pressure has not been significantly low. She is not maintained on any nonsteroidal anti-inflammatory agents prior to admission. PAST MEDICAL HISTORY: Significant for coronary artery disease, CKD stage 4, history of CVA/TIA, type 2 diabetes, history of DVT, gastroesophageal reflux disease, history of PE, history of CVA, right-sided weakness, tremors, generalized debility, using Fany lift at the [facility]. PAST SURGICAL HISTORY: Tonsillectomy. SOCIAL HISTORY: Negative for smoking, drug abuse or alcohol abuse. MEDICATIONS: Medications prior to admission included zyloprim, insulin, Zofran, Tylenol, omeprazole, loratadine, melatonin, potassium, Zoloft, Zaroxolyn, Lopressor, tramadol, Xanax, Santyl, Procrit, insulin, midodrine, Lyrica, Demadex, Coreg. ALLERGIES: Allergies are multiple, please see list. PHYSICAL EXAMINATION: Patient is comfortable, awake, she is not in any acute distress. Blood pressure was 125/76, heart rate 83 per minute, she is afebrile. Examination of the heart S1, S2. Examination of lungs, decreased breath sounds at the bases. The patient is morbidly obese. Examination of lower extremities shows chronic edema, chronic skin changes. 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 LABS: Show sodium 142, potassium 3.9, chloride 98, hemoglobin 9.2 g/dL. BUN 133, serum creatinine 3.08, albumin 3.2, magnesium 1.4. ASSESSMENT: 1. Acute kidney injury, possible acute tubular necrosis, rule out obstructive uropathy. Check ultrasound of the kidneys. Check bladder scan. Rule out urine retention, although this may be difficult given the body habitus. The patient is currently maintained on IV fluids which I will continue. 2. Chronic diastolic heart failure, maintained on diuretics. 3. Hypomagnesemia, being replaced. 4. Chronic kidney disease, stage 4. Baseline creatinine around 2. Etiology nephrosclerosis. 5. Syncope, on admission. Blood pressure is currently not low. Patient is being monitored for possibility of seizures. No head injury noted. Neurology is on consult. 6. Coronary artery disease. 7. Type 2 diabetes. 8. History of CVA with right hemiparesis. 9. Morbid obesity. PLAN: May continue with IV fluids for now. Check bladder scan. Check ultrasound of the kidneys. Check urinalysis. Check chest x-ray and repeat labs in a.m. Avoid any nephrotoxic agents. Thank you for this consultation. Will continue to follow the patient with you during her hospitalization. MMODL / IJN: [id number] /
[2020-11-29 15:47] LABS: Appearance,Urine Clear (Clear); Bilirubin,Urine Negative (Negative); Blood,Urine Negative (Negative); Color,Urine Light Yellow; Glucose,Urine (UA) 3+ (Negative); Ketones,Urine Negative (Negative); Leukocyte Esterase,Urine Negative (Negative); Nitrite,Urine Negative (Negative); Protein,Urine Trace (Negative); Specific Gravity,Urine 1.012 (1.001-1.035); Urobilinogen,Urine <2.0 mg/dL (<2.0)
--- NOTE | 2020-11-29 16:46 | P.PN ---
Progress Note - Text Progress Note Date: 11/29/20 Chief Complaint: Possible seizure History of presenting complaint: This is a 65-year-old patient who follows with Dr. Mina Lopez. Patient is a resident at [facility]. 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 Patient was being given a shower and then noticed that patient became unresponsive status stating. Started twitching. After sometime the patient did improve. Patient at baseline has noted to be having some tremors. Patient was found to have an elevated BUN/creatinine of 141 and 3.6. Patient is transferred here for further workup. Denies any fever and chills. Appetite otherwise fair. Denies any history of head injury or any prior history of seizure. Admitted with acute kidney injury possibly ATN. Started IV fluids. Also new onset seizures. Started on Keppra. EEG did not show any seizure activity showed some metabolic slowing down. Today: Laying in bed. Tired. Takes time to answer questions. Started on Keppra by neurology. Review of systems: Was done for constitutional, cardiovascular, GI, pulmonary. relevant finding as above Active Medications Acetaminophen (Acetaminophen Tab 325 Mg Tab) 650 mg PO Q6H [facility] Last Admin: 11/29/20 08:16 Dose: 650 mg Documented by: Albuterol Sulfate (Albuterol Nebulized 2.5 Mg/3 Ml) 2.5 mg INHALATION RT-QID PRN PRN Reason: Wheezing Albuterol Sulfate (Albuterol Nebulized 2.5 Mg/3 Ml) 2.5 mg INHALATION RT-QID [facility] Last Admin: 11/29/20 12:02 Dose: Not Given Documented by: Allopurinol (Allopurinol 100 Mg Tab) 200 mg PO DAILY [facility] Last Admin: 11/29/20 08:17 Dose: 200 mg Documented by: Apixaban (Apixaban 2.5 Mg Tablet) 2.5 mg PO BID [facility] Last Admin: 11/29/20 08:19 Dose: 2.5 mg Documented by: Atropine Sulfate (Atropine Ophth Soln 1% 5ml Btl) 2 drops SUBLINGUAL Q2H PRN PRN Reason: excess secretions Bisacodyl (Bisacodyl 5 Mg Tablet.) 10 mg PO Q72H PRN PRN Reason: Constipation Carvedilol (Carvedilol 3.125 Mg Tab) 3.125 mg PO BID [facility] Last Admin: 11/29/20 08:19 Dose: 3.125 mg Documented by: Dorzolamide HCl (Dorzolamide Hcl 2% Drops 10 Ml Btl) 1 drops BOTH EYES BID [facility] Last Admin: 11/29/20 11:09 Dose: 1 drops Documented by: Fluorometholone (Fluorometholone 0.1% Ophth Drops 5 Ml Btl) 1 drops RIGHT EYE DAILY [facility] Last Admin: 11/29/20 12:34 Dose: 1 drops Documented by: Folic Acid (Folic Acid 1 Mg Tab) 1 mg PO DAILY [facility] Guaifenesin (Guaifenesin Syrup 100mg/5ml 200 Mg/10 Ml Cup) 200 mg PO Q4H PRN PRN Reason: Cough Sodium Chloride (Saline 0.9%) 1,000 mls @ 120 mls/hr IV .Q8H20M [facility] Last Admin: 11/29/20 12:31 Dose: 120 mls/hr Documented by: Insulin Aspart (Insulin Aspart (Novolog) 100 Unit/Ml Vial) 10 unit SQ AC-TID [facility] Last Admin: 11/29/20 12:34 Dose: 10 unit Documented by: Insulin Detemir (Insulin Detemir (Levemir) 100 Unit/Ml Syr) 40 unit SQ [facility] Last Admin: 11/28/20 23:28 Dose: 40 unit Documented by: Latanoprost (Latanoprost 0.005% Ophth Drops 2.5 Ml Btl) 1 drops BOTH EYES DAILY [facility] Last Admin: 11/29/20 12:32 Dose: 1 drops Documented by: Lorazepam (Lorazepam 2 Mg/Ml Inj) 0.5 mg IV Q6HR PRN PRN Reason: Anxiety Melatonin (Melatonin 5 Mg Tablet) 5 mg PO [facility] Metolazone (Metolazone 5 Mg Tab) 5 mg PO MOWEFR [facility] Last Admin: 11/28/20 23:25 Dose: 5 mg Documented by: Midodrine (Midodrine 5 Mg Tab) 5 mg PO TID [facility] Last Admin: 11/29/20 08:19 Dose: 5 mg Documented by: Naloxone HCl (Naloxone 0.4 Mg/Ml 1 Ml Vial) 0.2 mg IV Q2M PRN PRN Reason: Opioid Reversal Nitroglycerin (Nitroglycerin Sl Tabs 0.4 Mg Tab) 0.4 mg SUBLINGUAL Q5M PRN PRN Reason: Chest Pain Pantoprazole Sodium (Pantoprazole 40 Mg Tablet) 40 mg PO AC-BRKFST [facility] Last Admin: 11/29/20 08:17 Dose: 40 mg Documented by: Pregabalin (Pregabalin 75 Mg Cap) 75 mg PO BID [facility] Last Admin: 11/29/20 10:25 Dose: 75 mg Documented by: Sertraline HCl (Sertraline 100 Mg Tab) 100 mg PO DAILY [facility] Last Admin: 11/29/20 08:17 Dose: 100 mg Documented by: Sodium Chloride (Sodium Chloride 0.65% Nasal [place] 44 Ml Btl) 1 spray NASAL Q2H PRN PRN Reason: nasal dryness Timolol Maleate (Timolol 0.5% Ophth Drops 5 Ml Btl) 1 drops BOTH EYES BID [facility] Last Admin: 11/29/20 11:09 Dose: 1 drops Documented by: Tramadol HCl (Tramadol 50 Mg Tab) 50 mg PO Q6H PRN PRN Reason: Pain Past medical history to include: Chronic kidney disease stage IV from nephrosclerosis, coronary artery disease, right-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 Currently a resident at [facility]. Nonambulatory. Family history: Reviewed, noncontributory to presentation Physical examination: VITAL SIGNS: 98.8, 80, 16, 1 32 x 59, 98% on 3 L GENERAL: Laying in bed, tired EYES: Pupils equal. Conjunctiva normal. HEENT: External appearance of nose and ears normal, oral cavity grossly normal. NECK: Short and thick, JVD unable to assess; masses not palpable. HEART: Distant heart sounds no edema. LUNGS: Respiratory rate increased, distant breath sounds. ABDOMEN: Soft, nontender, liver spleen not palpable, no masses palpable. PSYCH: Patient slow to answer questions. NEUROLOGICAL: Cranial nerves grossly intact; no facial asymmetry, power and sensation grossly intact. Decreased tremors INVESTIGATIONS, reviewed in the clinical context: EEG: No epileptiform activity. Evidence of encephalopathy. November 29: WBC 9.7 hemoglobin 9.2 platelets 210 potassium 3.9 bun 133 creatinine 3.08 [From [facility]] Sodium 143 potassium 3.8 BUN 4 and 41 and creatinine 3.6 albumin 3.9 calcium 9.2 vitamin B12 143 TSH 2.46 [place] 1.3 phosphorus 5.3 WBC 8.8 hemoglobin 9.8 platelets 220 Assessment and plan: -New onset of seizures - prior stroke which can be a focus with the same. Also electrolyte abnormalities because of worsening renal failure could precipitate the same. Started on Keppra -Acute metabolic encephalopathy from renal failure-slow to respond Follow clinically -Acute kidney injury , possibly prerenal, ATN-slow to respond Hold off diuretics for now. IV hydration. -Chronic kidney disease stage IV from nephrosclerosis Follow electrolytes -Coronary artery disease with prior history of stent Continue with Coreg -Right hemiparesis from prior stroke -Diabetes mellitus type 2, chronically on insulin-uncontrolled with hyperglycemia Increase Lantus at 50 units at night and 12 units of NovoLog with meals. Victoza is not available in the hospital -GERD Continue PPI -Hyperuricemia Continue allopurinol -Essential hypertension Continue Lopressor -Chronic medical debility at her baseline. Does use a higher lift -Morbid obesity BMI 49.4 Weight loss measures and follow-up with PCP -Anxiety depression otherwise specified Continue with Zoloft -Normocytic anemia of chronic kidney disease Follow H&H -Obesity hypoventilation syndrome likely with restrictive lung disease from the same Continue with Ventolin nebulizer Discussed with Dr. Hazel from neurology. started on small dose of Keppra. . DC Ultram . Also because of renal failure will cut back the dose of Lyrica.See how the renal function improves. Seizure precautions to continue. DC Zaroxolyn
--- NOTE | 2020-11-29 17:08 | US ---
EXAMINATION TYPE: US carotid duplex BILAT DATE OF EXAM: 11/29/2020 COMPARISON: NONE CLINICAL HISTORY: Altered mental status, history of CVA. Altered mental status EXAM MEASUREMENTS: RIGHT: Peak Systolic Velocity (PSV) cm/sec ----- Right CCA: 67.6 ----- Right ICA: 116 ----- Right ECA: 60 ICA/CCA ratio: 1.7 RIGHT: End Diastole cm/sec ----- Right CCA: 12.3 ----- Right ICA: 24.0 ----- Right ECA: 0.0 LEFT: Peak Systolic Velocity (PSV) cm/sec ----- Left CCA: 90.3 ----- Left ICA: 83.8 ----- Left ECA: 94.8 ICA/CCA ratio: 0.9 LEFT: End Diastole cm/sec ----- Left CCA: 0.0 ----- Left ICA: 18.2 ----- Left ECA: 0.0 VERTEBRALS (direction of flow): Right Vertebral: Unable to visualize Left Vertebral: Unable to visualize Extremely limited, difficult exam due to severely morbidly obese pt with heavy breathing Limited evaluation of carotid arteries show no significant stenosis at this time IMPRESSION: 1. No significant flow-limiting stenosis is identified within the carotid vessels. 2. Nonvisualization of vertebral arteries. This may be due to technical factors. Criteria for Assigning % of Stenosis / Diameter reduction (Estimation based on the indirect measurements of the internal carotid artery velocities (ICA PSV). 1. Normal (no stenosis)=ICA PSV < 125 cm/s: ratio < 2.0: ICA EDV<40 cm/s. 2. Less than 50% stenosis=ICA PSV < 125 cm/s: ratio < 2.0: ICA EDV<40 cm/s. 3. 50 to 69% stenosis=ICA PSV of 125 to 230 cm/s: ration 2.0 ? 4.0: ICA EDV 40-100 cm/s. 4. Greater than 70% stenosis to near occlusion= ICA PSV > 230 cm/s: ratio > 4.0: ICA EDV > 100 cm/s. 5. Near occlusion= ICA PSV velocities may be low or undetectable: variable ratio and ICA EDV. 6. Total occlusion=unable to detect flow.
[2020-11-29 17:30] LABS: Glucose,Whole Blood 314 mg/dL (75-99)
[2020-11-29] MEDS: levETIRAcetam 250 MG TAB PO SCH (18:20)
[2020-11-29] MEDS: FOLIC ACID 1 MG TAB PO SCH (18:20)
[2020-11-29 20:30] LABS: Glucose,Whole Blood 343 mg/dL (75-99)
[2020-11-29] MEDS ORDERED: INSULIN DETEMIR (LEVEMIR) 100 UNIT/ML SYR SQ SCH (21:00)
[2020-11-29] MEDS: MAGNESIUM OXIDE 400 MG TAB PO SCH (21:11)
[2020-11-29] MEDS: MELATONIN 5 MG TABLET PO SCH (21:11)
[2020-11-30] MEDS: ACETAMINOPHEN TAB 325 MG TAB PO SCH ×4 (03:17→21:43)
[2020-11-30] MEDS: SODIUM CHLORIDE 0.9% 1,000 ML IV SCH ×3 (05:43→21:19)
[2020-11-30 06:29] LABS: Glucose,Whole Blood 247 mg/dL (75-99)
[2020-11-30] MEDS: PANTOPRAZOLE 40 MG TABLET PO SCH (06:38)
[2020-11-30] MEDS: INSULIN ASPART (NovoLOG) 100 UNIT/ML VIAL SQ SCH ×7 (07:15→21:32)
[2020-11-30] MEDS: ALBUTEROL NEBULIZED 2.5 MG/3 ML INHALATION SCH ×4 (07:49→21:24)
[2020-11-30 09:44] LABS: Calcium 8.9 mg/dL (8.4-10.2); Potassium 3.7 mmol/L (3.5-5.1)
--- NOTE | 2020-11-30 10:13 | P.CONS ---
History of Present Illness - Reason for Consult Consult date: 11/30/20 wound care - History of Present Illness This is a 65-year-old patient being seen on [facility] [address] for nonhealing ulcerations to the right heel, right lower extremity anterior aspect and the left and right buttocks. Patient is a resident at a [facility] care facility in [place]. She has past medical history of a stroke with paralysis to the right side. Patient has a unstageable pressure ulcer to the right calcaneus with an eschar In place measuring approximately 3 x 4 x 0.1 cm. Right lower extremity anterior aspect has a cluster of 3 ulcerations the distal ulceration measures approximately 4 x 1.2 x 0.1 cm with fat layer exposure granulation seen within the wound bed with moderate Slough. Serous drainage noted. Mid ulceration measures approximately 1 x 1 x 0.1 with significant amount of slough within the wound bed. Fat layer exposed. Minimal granulation with serous drainage. The superior ulceration measures approximately 2 x 2 x 0.1 cm Limited to skin breakdown with granulation seen throughout. Right and left gluteal ulcerations are stage II ulcers with fat layer exposure with redness and excoriation noted. Patient's past medical history includes coronary artery disease, heart failure, CVA with right-sided paralysis, diabetes mellitus, deep vein thrombosis, GERD, hypertension, stage III chronic kidney disease. Patient is a lifelong nonsmoker. Review of systems: Unable to answer due to aphasia Review Of Systems: Constitutional: No fever, no chills, no night sweats. No weight change. No weakness, fatigue or lethargy. No daytime sleepiness. Integumentary:reports wounds, no lesions. No rash or pruritus. No unusual bruising. No change in hair or nails. Assessment: 1. Unstageable pressure ulcer right calcaneus 2. Nonhealing ulceration with fatty layer exposure right lower extremity anterior aspect nonpressure related 3. Stage II pressure ulcer right/left gluteus 4. Diabetes with skin ulcer 5. Diabetes with foot ulcer Plan: 1. Apply honey alginate, saline moistened gauze, dry gauze were rolled gauze secured with paper tape to the right lower extremity anterior aspect. Change Thursday. 2. Sacral ulcers apply triad. Turn patient every 2 hours. Assess the surface algorithm for the appropriate surface. 3. Right calcaneus ulceration. Protected with foam at this time. Apply heel protectors. Thank you for the consultation any questions please contact the wound care center DNP note has been reviewed and discussed with Dr. Gerard and the impression and plan of care has been directed as dictated. Past Medical History Past Medical History: Coronary Artery Disease (CAD), Heart Failure, CVA/TIA, Diabetes Mellitus, Deep Vein Thrombosis (DVT), GERD/Reflux, Hypertension, Pulmonary Embolus (PE), Renal Disease Additional Past Medical History / Comment(s): tremmors, right sided weakness from CVA. Immobile uses hiral lift at [facility]. History of Any Multi-Drug Resistant Organisms: None Reported Past Surgical History: Tonsillectomy Additional Past Surgical History / Comment(s): G tube, pressure pump right eye Past Anesthesia/Blood Transfusion Reactions: No Reported Reaction Past Psychological History: Anxiety, Depression Smoking Status: Never smoker Past Alcohol Use History: None Reported Past Drug Use History: None Reported - Past Family History Father History Unknown: Yes Family Medical History: No Reported History, Unable to Obtain Mother History Unknown: Yes Family Medical History: No Reported History, Unable to Obtain Medications and Allergies Home Medications Medication Instructions Recorded Confirmed Type allopurinoL [Zyloprim] 200 mg PO DAILY 07/24/17 11/28/20 History Fluorometholone 0.1% Ophth Juanita 1 drop RIGHT EYE DAILY 08/30/18 11/28/20 History [Fml] Insulin Glargine [Lantus] 36 unit SQ BID 08/30/18 11/28/20 History Latanoprost/Pf [Latanoprost 0.005% 1 drop BOTH EYES DAILY 08/30/18 11/28/20 History Eye Drop] Magnesium Hydroxide [Milk of 2,400 mg PO Q48H PRN 08/30/18 11/28/20 History Magnesia] Nitroglycerin Sl Tabs [Nitrostat] 0.4 mg SL Q5M PRN 08/30/18 11/28/20 History Omeprazole 20 mg PO DAILY 08/30/18 11/28/20 History Ondansetron HCl [Zofran] 4 mg PO Q6H PRN 08/30/18 11/28/20 History Acetaminophen Tab [Tylenol] 650 mg PO Q6H 08/06/20 11/28/20 History Apixaban [Eliquis] 2.5 mg PO BID 08/06/20 11/28/20 History Atropine Ophth Soln 1% 5Ml [Isopto 2 drops SUBLINGUAL Q2H PRN 08/06/20 11/28/20 History Atropine 1% 5Ml] Bisacodyl 10 mg PO Q72H PRN 08/06/20 11/28/20 History Dorzolamide/Timolol/Pf [Cosopt Pf 1 drop BOTH EYES BID 08/06/20 11/28/20 History 2%/0.5% Ophth [place]] Fluticasone Nasal [place] [Flonase 1 spr EA NOSTRIL DAILY 08/06/20 11/28/20 History Nasal [place]] Loratadine 10 mg PO DAILY 08/06/20 11/28/20 History Melatonin 5 mg PO HS 08/06/20 11/28/20 History Potassium Chloride 10 meq PO DAILY 08/06/20 11/28/20 History Sertraline HCl [Zoloft] 100 mg PO DAILY 08/06/20 11/28/20 History Sodium Chloride [Saline Mist] 1 spray EA NOSTRIL Q2H PRN 08/06/20 11/28/20 History bisacodyL [Bisacodyl] 10 mg RECTAL Q72H PRN 08/06/20 11/28/20 History guaiFENesin [Diabetic Tussin Ex] 200 mg PO Q4H PRN 08/06/20 11/28/20 History metOLazone [Zaroxolyn] 5 mg PO MOWEFR 08/06/20 11/28/20 History Albuterol Nebulized [Ventolin 2.5 mg INHALATION RT-QID ml 08/14/20 11/28/20 Rx Nebulized] Metoprolol Tartrate [Lopressor] 12.5 mg PO BID tab 08/14/20 11/28/20 Rx traMADol HCL 50 mg PO Q6H PRN #10 tab 08/14/20 11/28/20 Rx ALPRAZolam [Xanax] 0.25 mg PO DAILY 11/28/20 11/28/20 History Albuterol Nebulized [Ventolin 2.5 mg INHALATION RT-QID PRN 11/28/20 11/28/20 History Nebulized] Collagenase [Santyl] 1 applic TOPICAL DAILY 11/28/20 11/28/20 History Epoetin Josh [Procrit] 20,000 units SQ Q14D 11/28/20 11/28/20 History [place] 5mg Menthol Cough Lozenge 1 lozenge MM Q2H PRN 11/28/20 11/28/20 History Insulin Aspart [NovoLOG Flexpen] 20 units SQ AC-TID 11/28/20 11/28/20 History Insulin Aspart [NovoLOG Flexpen] See Protocol SQ AC-TID 11/28/20 11/28/20 History Liquicel 30 ml PO BID 11/28/20 11/28/20 History Liraglutide [Victoza 3-Jose] 1.8 mg SQ DAILY 11/28/20 11/28/20 History Midodrine [ProAmatine] 5 mg PO TID 11/28/20 11/28/20 History Pregabalin [Lyrica] 75 mg PO BID 11/28/20 11/28/20 History Torsemide [Demadex] 20 mg PO BID 11/28/20 11/28/20 History carvediloL [Coreg] 3.125 mg PO BID 11/28/20 11/28/20 History Allergies Allergy/AdvReac Type Severity Reaction Status Date / Time ceresin [From Eucerin] Allergy Unknown Verified 11/28/20 19:50 emollient combination no.33 Allergy Unknown Verified 11/28/20 19:50 [From Eucerin] Iodinated Contrast Media Allergy Rash/Hives Verified 08/06/20 21:40 isopropyl myristate Allergy Unknown Verified 11/28/20 19:50 [From Eucerin] lanolin alcohols Allergy Unknown Verified 11/28/20 19:50 [From Eucerin] mineral oil [From Eucerin] Allergy Unknown Verified 11/28/20 19:50 Penicillins Allergy Rash/Hives Verified 08/06/20 21:40 petrolatum,white Allergy Unknown Verified 11/28/20 19:50 [From Eucerin] soap [From Eucerin] Allergy Unknown Verified 11/28/20 19:50 tuberculin,PPD,multi-puncture Allergy Unknown Verified 08/06/20 21:40 warfarin Allergy Unknown Verified 08/06/20 21:40 water [From Eucerin] Allergy Unknown Verified 11/28/20 19:50 codeine AdvReac Itching Verified 08/06/20 21:40 muscle rub Allergy Unknown Uncoded 08/06/20 21:40 Physical Exam Vitals: Vital Signs Temp Pulse Pulse Resp BP BP Pulse Ox 11/30/20 08:15 98.3 F 77 18 142/71 97 11/30/20 08:03 89 11/30/20 07:49 88 11/30/20 03:05 72 18 105/50 98 11/29/20 22:50 98.3 F 76 19 100/57 97 11/29/20 21:05 98 F 83 18 120/50 100 11/29/20 20:23 92 11/29/20 20:11 92 11/29/20 17:07 100 11/29/20 16:53 100 11/29/20 16:06 83 20 11/29/20 16:00 98.7 F 82 20 136/74 95 11/29/20 12:10 83 20 11/29/20 12:00 99.0 F 83 20 125/76 95 11/29/20 10:28 98.8 F 80 16 132/59 98 Intake and Output 11/29/20 11/30/20 11/30/20 22:59 06:59 14:59 Intake Total 1100 720 Output Total 400 750 Balance 700 -750 720 Intake: IV 840 Sodium Chloride 0.9% 1, 840 000 ml @ 120 mls/hr IV . Q8H20M [facility] Rx#:[id number] Oral 260 720 Output: Urine 400 750 Other: Voiding Method Diaper Diaper Diaper External Catheter External Catheter External Catheter # Bowel Movements 1 Weight 130 kg Results CBC & Chem 7: 11/29/20 06:09 11/30/20 09:10 Labs: Abnormal Lab Results - Last 24 Hours (Table) 11/29/20 11/29/20 11/29/20 Range/Units 12:15 15:10 17:29 Carbon Dioxide (22-30) mmol/L BUN (7-17) mg/dL Creatinine (0.52-1.04) mg/dL Glucose (74-99) mg/dL POC Glucose (mg/dL) 339 H 314 H (75-99) mg/dL Urine Protein Trace H (Negative) Urine Glucose (UA) 3+ H (Negative) 11/29/20 11/30/20 11/30/20 Range/Units 20:23 06:26 09:10 Carbon Dioxide 35 H (22-30) mmol/L BUN 118 H* (7-17) mg/dL Creatinine 2.86 H (0.52-1.04) mg/dL Glucose 265 H (74-99) mg/dL POC Glucose (mg/dL) 343 H 247 H (75-99) mg/dL Urine Protein (Negative) Urine Glucose (UA) (Negative) Assessment and Plan (1) Unstageable pressure ulcer of right heel Current Visit: Yes Status: Acute Code(s): L89.610 - PRESSURE ULCER OF RIGHT HEEL, UNSTAGEABLE SNOMED Code(s): 865228215 (2) Nonhealing ulcer of right lower extremity with fat layer exposed Current Visit: Yes Status: Acute Code(s): L97.912 - NON-PRS CHR ULC UNSP PRT OF R LOW LEG W FAT LAYER EXPOSED SNOMED Code(s): 06279134 (3) Diabetic foot ulcer Current Visit: Yes Status: Acute Code(s): E11.621 - TYPE 2 DIABETES MELLITUS WITH FOOT ULCER; L97.509 - NON-PRESSURE CHRONIC ULCER OTH PRT UNSP FOOT W UNSP SEVERITY SNOMED Code(s): 892490539 (4) Pressure ulcer of right buttock, stage 2 Current Visit: Yes Status: Acute Code(s): L89.312 - PRESSURE ULCER OF RIGHT BUTTOCK, STAGE 2 SNOMED Code(s): 00765243185528453 (5) Pressure ulcer of left buttock, stage 2 Current Visit: Yes Status: Acute Code(s): L89.322 - PRESSURE ULCER OF LEFT BUTTOCK, STAGE 2 SNOMED Code(s): 71326033967261699 (6) Diabetic skin ulcer Current Visit: Yes Status: Acute Code(s): E11.622 - TYPE 2 DIABETES MELLITUS WITH OTHER SKIN ULCER; L98.499 - NON-PRESSURE CHRONIC ULCER OF SKIN OF SITES W UNSP SEVERITY SNOMED Code(s): 014686236
[2020-11-30] MEDS: PREGABALIN 50 MG CAP PO SCH ×2 (11:18→21:33)
[2020-11-30] MEDS: FOLIC ACID 1 MG TAB PO SCH (11:18)
[2020-11-30] MEDS: allopurinoL 100 MG TAB PO SCH (11:19)
[2020-11-30] MEDS: carvediloL 3.125 MG TAB PO SCH ×2 (11:19→21:32)
[2020-11-30] MEDS: MAGNESIUM OXIDE 400 MG TAB PO SCH ×2 (11:19→21:32)
[2020-11-30] MEDS: MIDODRINE 5 MG TAB PO SCH ×3 (11:19→21:33)
[2020-11-30] MEDS: APIXABAN 2.5 MG TABLET PO SCH ×2 (11:19→21:33)
[2020-11-30] MEDS: SERTRALINE 100 MG TAB PO SCH (11:19)
[2020-11-30] MEDS: levETIRAcetam 250 MG TAB PO SCH (11:20)
[2020-11-30] MEDS: FLUOROMETHOLONE 0.1% OPHTH DROPS 5 ML BTL RIGHT EYE SCH (11:26)
[2020-11-30] MEDS: DORZOLAMIDE HCL 2% DROPS 10 ML BTL BOTH EYES SCH ×2 (11:27→21:43)
[2020-11-30] MEDS: LATANOPROST 0.005% OPHTH DROPS 2.5 ML BTL BOTH EYES SCH (11:28)
[2020-11-30] MEDS: TIMOLOL 0.5% OPHTH DROPS 5 ML BTL BOTH EYES SCH ×2 (11:29→21:33)
[2020-11-30 11:39] LABS: Glucose,Whole Blood 243 mg/dL (75-99)
--- NOTE | 2020-11-30 12:28 | P.CNPUL ---
History of Present Illness Consult date: 11/30/20 Chief complaint: Rule out obstructive sleep apnea, hypoventilation syndrome History of present illness: This is a 65-year-old white female patient who is a resident at the [facility], patient has history of CVA with chronic right-sided paralysis, diabetes mellitus type 2, hypertension, morbid obesity, chronic kidney disease stage IV. Patient had been at the [facility] for the past several months, she is quite debilitated, and requires extensive assistance with all of her activities of daily living, she requires a Fany lift for transfers in and out of bed. She was being given a shower at the [facility], where she became unresponsive and started twitching. After sometime the patient did improve. Patient does have some tremors at her baseline. At the time patient did not have her usual supplemental oxygen at 2 L/m. There is no history of fever or chills, her appetite has been fair. Denies any prior history of head injury or seizure. She was transferred to [facility] for evaluation. Her lab work at [facility] showed evidence of acute on chronic kidney failure. Her admission labs upon transfer to the [facility] showed white blood cell count of 9.7, hemoglobin 9.2, BUN of 133, creatinine is 3.08, CO2 is 37, the rest of electrolytes were within normal limits, her serum glucose was elevated at 279, magnesium was 1.4, LFTs were within normal limits, urinalysis showed trace protein, 3+ glucose but no evidence of infection, COVID-19 PCR was negative. Chest x-ray showed low lung volumes, enlarged heart, and left basilar airspace opacity suggestive of small pleural effusion with adjacent atelectasis. Neurology consultation was obtained regarding possibility of seizures, and EEG was abnormal related to background slowing of moderate degree, suggestive of generalized cerebral dysfunction secondary to toxic metabolic encephalopathy or due to diffuse structural brain abnormality. Carotid Dopplers were obtained showing no significant flow-limiting stenosis within the carotid vessels. Patient is awake and alert, her verbal responses are slow, but are appropriate to content. She gave some limited history, she knew where she resided and she knew how long she had been there, she denies [facility] a CPAP or [facility], no prior history of obstructive sleep apnea. She does wear oxygen on a regular basis at 2 L. Appears to be in no acute distress, denies any chest pain, denies any cough. We're consulted in regards to possibility of obstructive sleep apnea, hypoventilation syndrome. Review of Systems All systems: negative Constitutional: Denies chills, Denies fever Eyes: denies blurred vision, denies pain Ears, nose, mouth and throat: Denies headache, Denies sore throat Cardiovascular: Denies chest pain, Denies shortness of breath Respiratory: Reports dyspnea, Reports home oxygen, Denies cough Gastrointestinal: Denies abdominal pain, Denies diarrhea, Denies nausea, Denies vomiting Genitourinary: Denies dysuria, Denies hematuria Musculoskeletal: Denies myalgias Integumentary: Denies pruritus, Denies rash Neurological: Reports change in mentation, Reports motor disturbance, Reports seizures, Reports sensory deficit, Denies numbness, Denies weakness Psychiatric: Denies anxiety, Denies depression Endocrine: Denies fatigue, Denies weight change Past Medical History Past Medical History: Coronary Artery Disease (CAD), Heart Failure, CVA/TIA, Diabetes Mellitus, Deep Vein Thrombosis (DVT), GERD/Reflux, Hypertension, Pulmonary Embolus (PE), Renal Disease Additional Past Medical History / Comment(s): tremmors, right sided weakness from CVA. Immobile uses fany lift at [facility]. History of Any Multi-Drug Resistant Organisms: None Reported Past Surgical History: Tonsillectomy Additional Past Surgical History / Comment(s): G tube, pressure pump right eye Past Anesthesia/Blood Transfusion Reactions: No Reported Reaction Past Psychological History: Anxiety, Depression Smoking Status: Never smoker Past Alcohol Use History: None Reported Past Drug Use History: None Reported - Past Family History Father History Unknown: Yes Family Medical History: No Reported History, Unable to Obtain Mother History Unknown: Yes Family Medical History: No Reported History, Unable to Obtain Medications and Allergies Home Medications Medication Instructions Recorded Confirmed Type allopurinoL [Zyloprim] 200 mg PO DAILY 07/24/17 11/28/20 History Fluorometholone 0.1% Ophth Juanita 1 drop RIGHT EYE DAILY 08/30/18 11/28/20 History [Fml] Insulin Glargine [Lantus] 36 unit SQ BID 08/30/18 11/28/20 History Latanoprost/Pf [Latanoprost 0.005% 1 drop BOTH EYES DAILY 08/30/18 11/28/20 History Eye Drop] Magnesium Hydroxide [Milk of 2,400 mg PO Q48H PRN 08/30/18 11/28/20 History Magnesia] Nitroglycerin Sl Tabs [Nitrostat] 0.4 mg SL Q5M PRN 08/30/18 11/28/20 History Omeprazole 20 mg PO DAILY 08/30/18 11/28/20 History Ondansetron HCl [Zofran] 4 mg PO Q6H PRN 08/30/18 11/28/20 History Acetaminophen Tab [Tylenol] 650 mg PO Q6H 08/06/20 11/28/20 History Apixaban [Eliquis] 2.5 mg PO BID 08/06/20 11/28/20 History Atropine Ophth Soln 1% 5Ml [Isopto 2 drops SUBLINGUAL Q2H PRN 08/06/20 11/28/20 History Atropine 1% 5Ml] Bisacodyl 10 mg PO Q72H PRN 08/06/20 11/28/20 History Dorzolamide/Timolol/Pf [Cosopt Pf 1 drop BOTH EYES BID 08/06/20 11/28/20 History 2%/0.5% Ophth Droperette] Fluticasone Nasal [place] [Flonase 1 spr EA NOSTRIL DAILY 08/06/20 11/28/20 History Nasal [place]] Loratadine 10 mg PO DAILY 08/06/20 11/28/20 History Melatonin 5 mg PO HS 08/06/20 11/28/20 History Potassium Chloride 10 meq PO DAILY 08/06/20 11/28/20 History Sertraline HCl [Zoloft] 100 mg PO DAILY 08/06/20 11/28/20 History Sodium Chloride [Saline Mist] 1 spray EA NOSTRIL Q2H PRN 08/06/20 11/28/20 History bisacodyL [Bisacodyl] 10 mg RECTAL Q72H PRN 08/06/20 11/28/20 History guaiFENesin [Diabetic Tussin Ex] 200 mg PO Q4H PRN 08/06/20 11/28/20 History metOLazone [Zaroxolyn] 5 mg PO MOWEFR 08/06/20 11/28/20 History Albuterol Nebulized [Ventolin 2.5 mg INHALATION RT-QID ml 02/16/21 06/02/21 Rx Nebulized] Metoprolol Tartrate [Lopressor] 12.5 mg PO BID tab 08/14/20 11/28/20 Rx traMADol HCL 50 mg PO Q6H PRN #10 tab 08/14/20 11/28/20 Rx ALPRAZolam [Xanax] 0.25 mg PO DAILY 11/28/20 11/28/20 History Albuterol Nebulized [Ventolin 2.5 mg INHALATION RT-QID PRN 11/28/20 11/28/20 History Nebulized] Collagenase [Santyl] 1 applic TOPICAL DAILY 11/28/20 11/28/20 History Epoetin Josh [Procrit] 20,000 units SQ Q14D 11/28/20 11/28/20 History [place] 5mg Menthol Cough Lozenge 1 lozenge MM Q2H PRN 11/28/20 11/28/20 History Insulin Aspart [NovoLOG Flexpen] 20 units SQ AC-TID 11/28/20 11/28/20 History Insulin Aspart [NovoLOG Flexpen] See Protocol SQ AC-TID 11/28/20 11/28/20 History Liquicel 30 ml PO BID 11/28/20 11/28/20 History Liraglutide [Victoza 3-Jose] 1.8 mg SQ DAILY 11/28/20 11/28/20 History Midodrine [ProAmatine] 5 mg PO TID 11/28/20 11/28/20 History Pregabalin [Lyrica] 75 mg PO BID 11/28/20 11/28/20 History Torsemide [Demadex] 20 mg PO BID 11/28/20 11/28/20 History carvediloL [Coreg] 3.125 mg PO BID 11/28/20 11/28/20 History Allergies Allergy/AdvReac Type Severity Reaction Status Date / Time ceresin [From Eucerin] Allergy Unknown Verified 11/28/20 19:50 emollient combination no.33 Allergy Unknown Verified 11/28/20 19:50 [From Eucerin] Iodinated Contrast Media Allergy Rash/Hives Verified 08/06/20 21:40 isopropyl myristate Allergy Unknown Verified 11/28/20 19:50 [From Eucerin] lanolin alcohols Allergy Unknown Verified 11/28/20 19:50 [From Eucerin] mineral oil [From Eucerin] Allergy Unknown Verified 11/28/20 19:50 Penicillins Allergy Rash/Hives Verified 08/06/20 21:40 petrolatum,white Allergy Unknown Verified 11/28/20 19:50 [From Eucerin] soap [From Eucerin] Allergy Unknown Verified 11/28/20 19:50 tuberculin,PPD,multi-puncture Allergy Unknown Verified 08/06/20 21:40 warfarin Allergy Unknown Verified 08/06/20 21:40 water [From Eucerin] Allergy Unknown Verified 11/28/20 19:50 codeine AdvReac Itching Verified 08/06/20 21:40 muscle rub Allergy Unknown Uncoded 08/06/20 21:40 Physical Exam Vitals: Vital Signs Temp Pulse Pulse Resp BP Pulse Ox 11/30/20 08:15 98.3 F 77 18 142/71 97 11/30/20 08:03 89 11/30/20 07:49 88 11/30/20 03:05 72 18 105/50 98 11/29/20 22:50 98.3 F 76 19 100/57 97 11/29/20 21:05 98 F 83 18 120/50 100 11/29/20 20:23 92 11/29/20 20:11 92 11/29/20 17:07 100 11/29/20 16:53 100 11/29/20 16:06 83 20 11/29/20 16:00 98.7 F 82 20 136/74 95 11/29/20 12:10 83 20 11/29/20 12:00 99.0 F 83 20 125/76 95 Intake and Output 11/29/20 11/30/20 11/30/20 22:59 06:59 14:59 Intake Total 1100 720 Output Total 400 750 Balance 700 -750 720 Intake: IV 840 Sodium Chloride 0.9% 1, 840 000 ml @ 120 mls/hr IV . Q8H20M [facility] Rx#:[id number] Oral 260 720 Output: Urine 400 750 Other: Voiding Method Diaper Diaper Diaper External Catheter External Catheter External Catheter # Bowel Movements 1 Weight 130 kg GENERAL EXAM: Alert, very pleasant, 65-year-old white female, on 2 L of oxygen, with a pulse ox of 97% comfortable in no apparent distress. Patient is morbidly obese, she has right-sided hemiparesis related to previous history of stroke, and chronic contracture of her right arm and hand. Speech is slow, but appropriate, and patient is oriented 3 HEAD: Normocephalic/atraumatic. EYES: Normal reaction of pupils, equal size. Conjunctiva pink, sclera white. NOSE: Clear with pink turbinates. THROAT: No erythema or exudates. NECK: No masses, no JVD, no thyroid enlargement, no adenopathy. CHEST: No chest wall deformity. Symmetrical expansion. LUNGS: Equal air entry with no crackles, wheeze, rhonchi or dullness. CVS: Regular rate and rhythm, normal S1 and S2, no gallops, no murmurs, no rubs ABDOMEN: Soft, nontender. No hepatosplenomegaly, normal bowel sounds, no guarding or rigidity. EXTREMITIES: No clubbing, no edema, no cyanosis, 2+ pulses and upper and lower extremities. MUSCULOSKELETAL: Patient has chronic right-sided hemiparesis, with chronic contractures of right hand, right arm related to previous history of stroke. Patient is bedbound on a regular basis, requires a Fany lift for transfers SPINE: No scoliosis or deformity SKIN: No rashes CENTRAL NERVOUS SYSTEM: Alert and oriented -3. Chronic right-sided hemiparesis Results - Laboratory Findings CBC and BMP: 11/29/20 06:09 11/30/20 09:10 Abnormal lab findings: Abnormal Labs 11/28/20 11/29/20 11/29/20 23:14 06:09 06:09 RBC 3.08 L Hgb 9.2 L Hct 29.1 L RDW 17.6 H Carbon Dioxide 37 H BUN 133 H* Creatinine 3.08 H Glucose 279 H POC Glucose (mg/dL) 255 H Magnesium 1.4 L Total Protein 5.6 L Albumin 3.2 L Urine Protein Urine Glucose (UA) 11/29/20 11/29/20 11/29/20 08:34 12:15 15:10 RBC Hgb Hct RDW Carbon Dioxide BUN Creatinine Glucose POC Glucose (mg/dL) 293 H 339 H Magnesium Total Protein Albumin Urine Protein Trace H Urine Glucose (UA) 3+ H 11/29/20 11/29/20 11/30/20 17:29 20:23 06:26 RBC Hgb Hct RDW Carbon Dioxide BUN Creatinine Glucose POC Glucose (mg/dL) 314 H 343 H 247 H Magnesium Total Protein Albumin Urine Protein Urine Glucose (UA) 11/30/20 11/30/20 09:10 11:38 RBC Hgb Hct RDW Carbon Dioxide 35 H BUN 118 H* Creatinine 2.86 H Glucose 265 H POC Glucose (mg/dL) 243 H Magnesium Total Protein Albumin Urine Protein Urine Glucose (UA) - Diagnostic Findings Chest x-ray: report reviewed, image reviewed Additional studies: EEG reviewed, carotid Doppler study reviewed Assessment and Plan Plan: Assessment: #1. Rule out new onset seizure with the episode of decreased responsiveness, neurology's help #2. Altered mental status, rule out possibility of obesity hypoventilation syndrome, obstructive sleep apnea #3. Chronic hypoxic respiratory failure possibly related to morbid obesity, and obstructive sleep apnea and history of congestive heart failure with diastolic dysfunction, wears 2 L of oxygen on a regular basis #4. Morbid obesity with BMI of 49.2 kg/m #5. Gait dysfunction, general medical debility, patient requires a lift for transfers #6. History of CVA with right-sided paralysis #7. Diabetes mellitus type 2 #8. Hypertension #9. Coronary artery disease #10. History of congestive heart failure with diastolic dysfunction #11. Previous history of pulmonary embolism and DVT, patient is on Eliquis for chronic anti-coagulation #12. Anxiety, depression #13. Non smoker Plan: Chest x-ray reviewed We will obtain a blood gas on 2 L of oxygen Patient does have features consistent with obstructive sleep apnea She [facility] with pressures of 12/6 and FiO2 of 28% We will review the blood gas and make further adjustments if necessary We'll continue to follow I performed a history & physical examination of the patient and discussed their management with my nurse practitioner, Audrey Tran. I reviewed the nurse practitioner's note and agree with the documented findings and plan of care. Lung sounds are positive for diminished breath sounds. The findings and the impression was discussed with the patient. I attest to the documentation by the nurse practitioner. Time with Patient: Greater than 30
--- NOTE | 2020-11-30 13:21 | PN ---
PROGRESS NOTE Patient is seen for followup for acute kidney injury on top of chronic kidney disease. The patient has stage IV CKD with baseline creatinine around 2 mg/dL. She was admitted to the hospital after an episode of being unresponsive at the shelter. The patient's blood pressure has not been low and her mentation is currently at baseline. Possibility of new onset seizures being considered. Her serum creatinine was at 3.0 mg/dL on admission with a BUN of 133. Patient is maintained on IV fluids and her creatinine is down to 2.8 with BUN down to 118. The patient has been maintained on diuretics as outpatient for chronic lower extremity edema. The patient has been evaluated by Vascular Surgery as out patient for access placement for in-center dialysis but has not had surgery for placement of access yet. She has seen Dr. Ovalle and has had vein mapping done. This morning patient denies any nausea, vomiting. No significant chest pains or shortness of breath. PHYSICAL EXAMINATION: On examination today, blood pressure was 142/71, heart rate 77 per minute, she is afebrile. Examination of the heart S1, S2. Examination of the lungs, bilateral breath sounds are heard. The patient is morbidly obese. Abdomen is soft, nontender. Examination of lower extremities shows chronic skin changes, chronic edema noted bilaterally. 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 Patient does not move her lower extremities much. Right side more weak. LABS: From today show sodium 142, potassium 3.7, chloride 99, CO2 is 35, BUN 118, serum creatinine of 2.86. ASSESSMENT: 1. Kidney injury prerenal currently improved with IV hydration. I will continue with the IV fluids for now. We will likely discontinue the IV fluids tomorrow if the patient has had good oral intake. 2. Chronic kidney disease, stage 4. Baseline creatinine about 2.0 secondary to nephrosclerosis with plans for in-center dialysis down the road. Patient has had vein mapping done, but an access has not been placed yet. 3. History of chronic lower extremity edema and volume overload, maintained on diuretics as outpatient, currently on hold. 4. Metabolic alkalosis secondary to diuretics, currently improved. 5. Morbid obesity. 6. Possible new seizure. Neurology is on consult. 7. Chronic hypoxic respiratory failure and obstructive sleep apnea. 8. History of diastolic congestive heart failure. 9. History of CVA. PLAN: Continue with IV fluids for now. Repeat labs in a.m. We can likely discontinue the IV fluids tomorrow if the patient has had fair oral intake. She will likely need to start renal replacement therapy soon, hopefully not this admission. MMROGERIOL / IJN: [id number] / MTDD
--- NOTE | 2020-11-30 14:49 | P.PN ---
Subjective Progress Note Date: 11/30/20 Patient was seen for a follow-up. Patient is very somnolent today. She is snoring. Objective - Vital Signs Vital signs: Vital Signs Temp 98.3 F 11/30/20 11:10 Pulse 72 11/30/20 11:10 Resp 18 11/30/20 11:10 BP 133/59 11/30/20 11:10 Pulse Ox 98 11/30/20 11:10 Intake & Output 11/29/20 11/30/20 11/30/20 18:59 06:59 18:59 Intake Total 1090 260 720 Output Total 1200 750 Balance -110 -490 720 Weight 130.635 kg 130 kg 130 kg Intake: IV 850 Invasive Line 2 10 Sodium Chloride 0.9% 1, 840 000 ml @ 120 mls/hr IV . Q8H20M [facility] Rx#:[id number] Oral 240 260 720 Output: Urine 1200 750 Other: Voiding Method Diaper Diaper Diaper External Catheter External Catheter External Catheter # Bowel Movements 1 - Exam Patient is snoring. She is somnolent. She did wake up slightly on calling her name and gently shaking her shoulder,, but then went back to sleep. Exam limited. - Labs CBC & Chem 7: 11/29/20 06:09 11/30/20 09:10 Labs: Abnormal Lab Results - Last 24 Hours (Table) 11/29/20 11/29/20 11/29/20 Range/Units 15:10 17:29 20:23 Carbon Dioxide (22-30) mmol/L BUN (7-17) mg/dL Creatinine (0.52-1.04) mg/dL Glucose (74-99) mg/dL POC Glucose (mg/dL) 314 H 343 H (75-99) mg/dL Urine Protein Trace H (Negative) Urine Glucose (UA) 3+ H (Negative) 11/30/20 11/30/20 11/30/20 Range/Units 06:26 09:10 11:38 Carbon Dioxide 35 H (22-30) mmol/L BUN 118 H* (7-17) mg/dL Creatinine 2.86 H (0.52-1.04) mg/dL Glucose 265 H (74-99) mg/dL POC Glucose (mg/dL) 247 H 243 H (75-99) mg/dL Urine Protein (Negative) Urine Glucose (UA) (Negative) Assessment and Plan Assessment: * Episode of unresponsiveness with a blank stare, while taking shower. Possible focal seizure. Patient also is on tramadol, which can lower seizure threshold. * History of large MCA territory stroke, with some speech impediment and severe right hemiplegia. * Toxic metabolic encephalopathy, likely due to reasons below. * Acute on chronic renal failure * Hypertension * Diabetes * CAD * CHF * Morbid obesity * Folate deficiency * DO NOT RESUSCITATE. Plan: * EEG from 11/29/2020 revealed background slowing of moderate degree. No epileptiform activity was seen. Patient does have history of left MCA territory stroke, which could be a focus of focal seizure. We will start Keppra 250 mg daily based upon her renal functions, and encephalopathy. * Stop tramadol. * Carotid Doppler revealed no significant flow limiting stenosis identified within carotid vessels. Nonvisualization of the vertebral arteries. * B12 743, folate borderline 6.13 (performed at [facility]). We will start folate replacement. * Other medical management as per IM and other specialties. * I spoke to patient's sister and niece. They mentioned that patient had stroke on 01/26/2014. Patient had some seizure type spells after the stroke for which she was placed on Keppra. Patient subsequently has not had any seizure type spell for years. She underwent some testing and workup, which came back negative. Keppra was then discontinued. She has been off Keppra for the last 3 years. * Neurologically clear. Dr. Choco Damon Will resume neurology service from a.m.. Please call neurology if any concerns.
--- NOTE | 2020-11-30 16:34 | P.PN ---
Progress Note - Text Progress Note Date: 11/30/20 Chief Complaint: Possible seizure History of presenting complaint: This is a 65-year-old patient who follows with Dr. Mina Lopez. Patient is a resident at [facility]. 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 Patient was being given a shower and then noticed that patient became unresponsive status stating. Started twitching. After sometime the patient did improve. Patient at baseline has noted to be having some tremors. Patient was found to have an elevated BUN/creatinine of 141 and 3.6. Patient is transferred here for further workup. Denies any fever and chills. Appetite otherwise fair. Denies any history of head injury or any prior history of seizure. Admitted with acute kidney injury possibly ATN. Started IV fluids. Metabolic encephalopathy from renal failure. Also new onset seizures. Patient was previously on Keppra few years ago following a stroke. Then discontinued. Started on Keppra. EEG did not show any seizure activity showed some metabolic slowing down. Today: Bit more awake. Slow to answer questions. Getting IV fluids. Review of systems: Attempted for constitutional, cardiovascular, GI, pulmonary. relevant finding as above Active Medications Acetaminophen (Acetaminophen Tab 325 Mg Tab) 650 mg PO Q6H [facility] Last Admin: 11/30/20 11:18 Dose: 650 mg Documented by: Albuterol Sulfate (Albuterol Nebulized 2.5 Mg/3 Ml) 2.5 mg INHALATION RT-QID PRN PRN Reason: Wheezing Albuterol Sulfate (Albuterol Nebulized 2.5 Mg/3 Ml) 2.5 mg INHALATION RT-QID [facility] Last Admin: 11/30/20 15:44 Dose: 2.5 mg Documented by: Allopurinol (Allopurinol 100 Mg Tab) 200 mg PO DAILY [facility] Last Admin: 11/30/20 11:19 Dose: 200 mg Documented by: Apixaban (Apixaban 2.5 Mg Tablet) 2.5 mg PO BID [facility] Last Admin: 11/30/20 11:19 Dose: 2.5 mg Documented by: Atropine Sulfate (Atropine Ophth Soln 1% 5ml Btl) 2 drops SUBLINGUAL Q2H PRN PRN Reason: excess secretions Bisacodyl (Bisacodyl 5 Mg Tablet.Dr) 10 mg PO Q72H PRN PRN Reason: Constipation Carvedilol (Carvedilol 3.125 Mg Tab) 3.125 mg PO BID [facility] Last Admin: 11/30/20 11:19 Dose: 3.125 mg Documented by: Dorzolamide HCl (Dorzolamide Hcl 2% Drops 10 Ml Btl) 1 drops BOTH EYES BID [facility] Last Admin: 11/30/20 11:27 Dose: 1 drops Documented by: Fluorometholone (Fluorometholone 0.1% Ophth Drops 5 Ml Btl) 1 drops RIGHT EYE DAILY [facility] Last Admin: 11/30/20 11:26 Dose: 1 drops Documented by: Folic Acid (Folic Acid 1 Mg Tab) 1 mg PO DAILY [facility] Last Admin: 11/30/20 11:18 Dose: 1 mg Documented by: Guaifenesin (Guaifenesin Syrup 100mg/5ml 200 Mg/10 Ml Cup) 200 mg PO Q4H PRN PRN Reason: Cough Sodium Chloride (Saline 0.9%) 1,000 mls @ 120 mls/hr IV .Q8H20M [facility] Last Admin: 11/30/20 11:34 Dose: 120 mls/hr Documented by: Insulin Aspart (Insulin Aspart (Novolog) 100 Unit/Ml Vial) 12 unit SQ AC-TID [facility] Last Admin: 11/30/20 12:15 Dose: 12 unit Documented by: Insulin Aspart (Insulin Aspart (Novolog) 100 Unit/Ml Vial) 0 unit SQ ACHS [facility]; Protocol Last Admin: 11/30/20 12:16 Dose: 5 unit Documented by: Insulin Detemir (Insulin Detemir (Levemir) 100 Unit/Ml Syr) 50 unit SQ HS [facility] Last Admin: 11/29/20 21:13 Dose: 50 unit Documented by: Latanoprost (Latanoprost 0.005% Ophth Drops 2.5 Ml Btl) 1 drops BOTH EYES DAILY [facility] Last Admin: 11/30/20 11:28 Dose: 1 drops Documented by: Levetiracetam (Levetiracetam 250 Mg Tab) 250 mg PO DAILY [facility] Last Admin: 11/30/20 11:20 Dose: 250 mg Documented by: Magnesium Oxide (Magnesium Oxide 400 Mg Tab) 200 mg PO BID [facility] Last Admin: 11/30/20 11:19 Dose: 200 mg Documented by: Melatonin (Melatonin 5 Mg Tablet) 5 mg PO HS [facility] Last Admin: 11/29/20 21:11 Dose: 5 mg Documented by: Midodrine (Midodrine 5 Mg Tab) 5 mg PO TID [facility] Last Admin: 11/30/20 11:19 Dose: 5 mg Documented by: Naloxone HCl (Naloxone 0.4 Mg/Ml 1 Ml Vial) 0.2 mg IV Q2M PRN PRN Reason: Opioid Reversal Nitroglycerin (Nitroglycerin Sl Tabs 0.4 Mg Tab) 0.4 mg SUBLINGUAL Q5M PRN PRN Reason: Chest Pain Pantoprazole Sodium (Pantoprazole 40 Mg Tablet) 40 mg PO AC-BRKFST [facility] Last Admin: 11/30/20 06:38 Dose: 40 mg Documented by: Pregabalin (Pregabalin 50 Mg Cap) 50 mg PO BID [facility] Last Admin: 11/30/20 11:18 Dose: 50 mg Documented by: Sertraline HCl (Sertraline 100 Mg Tab) 100 mg PO DAILY [facility] Last Admin: 11/30/20 11:19 Dose: 100 mg Documented by: Sodium Chloride (Sodium Chloride 0.65% Nasal [place] 44 Ml Btl) 1 spray NASAL Q2H PRN PRN Reason: nasal dryness Timolol Maleate (Timolol 0.5% Ophth Drops 5 Ml Btl) 1 drops BOTH EYES BID [facility] Last Admin: 11/30/20 11:29 Dose: 1 drops Documented by: Past medical history to include: Chronic kidney disease stage IV from nephrosclerosis, coronary artery disease, right-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 Currently a resident at [facility]. Nonambulatory. Family history: Reviewed, noncontributory to presentation Physical examination: VITAL SIGNS: 98.3, 72, 18, 133/59, 98% 3 L GENERAL: Laying in bed, tired EYES: Pupils equal. Conjunctiva normal. HEENT: External appearance of nose and ears normal, oral cavity grossly normal. NECK: Short and thick, JVD unable to assess; masses not palpable. HEART: Distant heart sounds no edema. LUNGS: Respiratory rate increased, distant breath sounds. ABDOMEN: Soft, nontender, liver spleen not palpable, no masses palpable. PSYCH: Patient slow to answer questions. NEUROLOGICAL: Cranial nerves grossly intact; no facial asymmetry, power and sensation grossly intact. Decreased tremors INVESTIGATIONS, reviewed in the clinical context: November 30: Potassium 3.7 bicarb 35 bun 118 creatinine 2.86 Accu-Cheks 243 EEG: No epileptiform activity. Evidence of encephalopathy. November 29: WBC 9.7 hemoglobin 9.2 platelets 210 potassium 3.9 bun 133 creatinine 3.08 [From [facility]] Sodium 143 potassium 3.8 BUN 4 and 41 and creatinine 3.6 albumin 3.9 calcium 9.2 vitamin B12 143 TSH 2.46 magnesia 1.3 phosphorus 5.3 WBC 8.8 hemoglobin 9.8 platelets 220 Assessment and plan: -New onset of seizures - prior stroke which can be a focus with the same. Patient was on Keppra in the past. Then discontinued because no further seizures Started on Keppra after discussion with neurology -Acute metabolic encephalopathy from renal failure-slow to respond Follow clinically -Acute kidney injury , possibly prerenal, ATN-slow to respond Hold off diuretics for now. IV hydration. -Chronic kidney disease stage IV from nephrosclerosis Follow electrolytes -Coronary artery disease with prior history of stent Continue with Coreg -Right hemiparesis from prior stroke -Diabetes mellitus type 2, chronically on insulin-uncontrolled with hyperglycemia Increase Lantus at 60 units at night and 14 units of NovoLog with meals. Victoza is not available in the hospital -GERD Continue PPI -Hyperuricemia Continue allopurinol -Essential hypertension Continue Lopressor -Chronic medical debility at her baseline. Does use a higher lift -Morbid obesity BMI 49.4 Weight loss measures and follow-up with PCP -Anxiety depression otherwise specified Continue with Zoloft -Normocytic anemia of chronic kidney disease Follow H&H -Obesity hypoventilation syndrome likely with restrictive lung disease from the same Continue with Ventolin nebulizer Increased dose of insulin. IV fluids. Follow renal function.
[2020-11-30 16:40] LABS: Glucose,Whole Blood 236 mg/dL (75-99)
[2020-11-30 20:27] LABS: Glucose,Whole Blood 293 mg/dL (75-99)
[2020-11-30] MEDS ORDERED: INSULIN DETEMIR (LEVEMIR) 100 UNIT/ML SYR SQ SCH (21:00)
[2020-11-30] MEDS: MELATONIN 5 MG TABLET PO SCH (21:33)
[2020-12-01] MEDS: ACETAMINOPHEN TAB 325 MG TAB PO SCH ×4 (04:00→20:39)
[2020-12-01 05:50] LABS: Glucose,Whole Blood 210 mg/dL (75-99)
[2020-12-01] MEDS: SODIUM CHLORIDE 0.9% 1,000 ML IV SCH ×3 (06:32→20:39)
[2020-12-01] MEDS: ALBUTEROL NEBULIZED 2.5 MG/3 ML INHALATION SCH ×4 (07:20→20:28)
[2020-12-01] MEDS: carvediloL 3.125 MG TAB PO SCH ×2 (08:19→20:38)
[2020-12-01] MEDS: levETIRAcetam 250 MG TAB PO SCH (08:19)
[2020-12-01] MEDS: MAGNESIUM OXIDE 400 MG TAB PO SCH ×2 (08:19→20:38)
[2020-12-01] MEDS: SERTRALINE 100 MG TAB PO SCH (08:20)
[2020-12-01] MEDS: PREGABALIN 50 MG CAP PO SCH ×2 (08:20→20:38)
[2020-12-01] MEDS: MIDODRINE 5 MG TAB PO SCH ×3 (08:20→20:38)
[2020-12-01] MEDS: allopurinoL 100 MG TAB PO SCH (08:20)
[2020-12-01] MEDS: DORZOLAMIDE HCL 2% DROPS 10 ML BTL BOTH EYES SCH ×2 (08:20→20:37)
[2020-12-01] MEDS: PANTOPRAZOLE 40 MG TABLET PO SCH (08:20)
[2020-12-01] MEDS: TIMOLOL 0.5% OPHTH DROPS 5 ML BTL BOTH EYES SCH ×2 (08:20→20:37)
[2020-12-01] MEDS: APIXABAN 2.5 MG TABLET PO SCH ×2 (08:20→20:38)
[2020-12-01] MEDS: FOLIC ACID 1 MG TAB PO SCH (08:20)
[2020-12-01] MEDS: FLUOROMETHOLONE 0.1% OPHTH DROPS 5 ML BTL RIGHT EYE SCH (08:21)
[2020-12-01] MEDS: LATANOPROST 0.005% OPHTH DROPS 2.5 ML BTL BOTH EYES SCH ×2 (08:21→20:37)
[2020-12-01] MEDS: INSULIN ASPART (NovoLOG) 100 UNIT/ML VIAL SQ SCH ×7 (08:22→20:38)
--- NOTE | 2020-12-01 08:50 | P.PN ---
Subjective Progress Note Date: 12/01/20 Principal diagnosis: This is a 65-year-old female who is a extended care facility resident, came in because of change in mental status and near syncope. She is seen because of acu te kidney injury likely from reduce intake fluid depletion and IV fluids were started creatinine has improved, as well as chronic kidney disease. Her baseline creatinine is 2.1 as of 08/13/2020, came in with creatinine of 3.08 and with IV fluids creatinine improved at 2.86 She is morbidly obese. Currently is somewhat disoriented to time but not to place. She is denying any fever chills cough shortness of breath. Appetite is fair. No nausea vomiting diarrhea In the past she is known with coronary artery disease, diabetes type 2, hypertension and chronic debility Objective - Vital Signs Vital signs: Vital Signs Temp 99 F 12/01/20 08:00 Pulse 70 12/01/20 08:00 Resp 18 12/01/20 08:00 BP 141/67 12/01/20 08:00 Pulse Ox 100 12/01/20 08:00 Intake & Output 11/30/20 12/01/20 12/01/20 18:59 06:59 18:59 Intake Total 2120 Output Total 950 Balance 2120 -950 Weight 130 kg 133 kg Intake: Intake, IV Titration 500 Amount Sodium Chloride 0.9% 1, 500 000 ml @ 120 mls/hr IV . Q8H20M [facility] Rx#:[id number] Oral 1620 Output: Urine 950 Other: Voiding Method Diaper Diaper External Catheter External Catheter On examination awake alert oriented to only place HEENT exam difficult to see her JVP neck is supple no facial asymmetry Lungs are clear to auscultation but because of the morbid obesity and a in ability to sit up difficult exam no adventitious sounds heard. Diminished air entry Heart sounds are unremarkable again distant Abdomen is obese and protuberant nontender Extremity exam was minimal edema Neurologically awake alert but disoriented moves all her extremities - Labs CBC & Chem 7: 11/29/20 06:09 11/30/20 09:10 Labs: Abnormal Lab Results - Last 24 Hours (Table) 11/30/20 11/30/20 11/30/20 Range/Units 09:10 11:38 16:38 Carbon Dioxide 35 H (22-30) mmol/L BUN 118 H* (7-17) mg/dL Creatinine 2.86 H (0.52-1.04) mg/dL Glucose 265 H (74-99) mg/dL POC Glucose (mg/dL) 243 H 236 H (75-99) mg/dL 11/30/20 12/01/20 Range/Units 20:15 05:48 Carbon Dioxide (22-30) mmol/L BUN (7-17) mg/dL Creatinine (0.52-1.04) mg/dL Glucose (74-99) mg/dL POC Glucose (mg/dL) 293 H 210 H (75-99) mg/dL Assessment and Plan Assessment: Impression 1. Acute kidney injury from prerenal from syncope and possibly low blood p ressure, improving with IV fluids. Creatinine improved from 3.08-2.86 2. Chronic kidney disease stage IV, secondary to nephrosclerosis baseline creatinine is about 2.1, urinalysis shows trace proteinuria not quantified unlikely diabetic nephropathy but cannot be ruled out 3. Admitted with near syncope. Rule out seizures 4. Morbid obesity, nonhealing ulceration right heel 5. Extended care facility resident, with history of CVA in the past 6. Anemia hemoglobin is 9.2. Recommendation 1. Continue IV fluids for another 24 hours and then may be discontinued. Currently on normal saline at 120 MLS admitted. 2. Iron saturation 3. Monitor lites intake and output
[2020-12-01 12:17] LABS: Glucose,Whole Blood 308 mg/dL (75-99)
--- NOTE | 2020-12-01 12:36 | P.PN ---
Subjective Progress Note Date: 12/01/20 Principal diagnosis: Obesity/hypoventilation syndrome This is a 65-year-old white female patient who is a resident at the [facility], patient has history of CVA with chronic right-sided paralysis, diabetes mellitus type 2, hypertension, morbid obesity, chronic kidney disease stage IV. Patient had been at the [facility] for the past several months, she is quite debilitated, and requires extensive assistance with all of her activities of daily living, she requires a Fany lift for transfers in and out of bed. She was being given a shower at the [facility], where she became unresponsive and started twitching. After sometime the patient did improve. Patient does have some tremors at her baseline. At the time patient did not have her usual supplemental oxygen at 2 L/m. There is no history of fever or chills, her appetite has been fair. Denies any prior history of head injury or seizure. She was transferred to [facility] for evaluation. Her lab work at [facility] showed evidence of acute on chronic kidney failure. [facility] showed white blood cell count of 9.7, hemoglobin 9.2, BUN of 133, creatinine is 3.08, CO2 is 37, the rest of electrolytes were within normal limits, her serum glucose was elevated at 279, magnesium was 1.4, LFTs were within normal limits, urinalysis showed trace protein, 3+ glucose but no evidence of infection, COVID-19 PCR was negative. Chest x-ray showed low lung volumes, enlarged heart, and left basilar airspace opacity suggestive of small pleural effusion with adjacent atelectasis. Neurology consultation was obtained regarding possibility of seizures, and EEG was abnormal related to background slowing of moderate degree, suggestive of generalized cerebral dysfunction secondary to toxic metabolic encephalopathy or due to diffuse structural brain abnormality. Carotid Dopplers were obtained showing no significant flow-limiting stenosis within the carotid vessels. Patient is awake and alert, her verbal responses are slow, but are appropriate to content. She gave some limited history, she knew where she resided and she knew how long she had been there, she denies wearing a CPAP or BiPAP device at the senior care, no prior history of obstructive sleep apnea. She does wear oxygen on a regular basis at 2 L. Appears to be in no acute distress, denies any chest pain, denies any cough. We're consulted in regards to possibility of obstructive sleep apnea, hypoventilation syndrome. The patient is seen today 12/01/2020 in follow-up on the selective care unit. She is currently awake and alert. She is resting fairly comfortably in bed. She is maintaining O2 saturations in the 90s on 2 L/m per nasal cannula. She's been afebrile. Hemodynamically stable. Blood glucose 308. ABGs were unable to be obtained. She is continued on bronchodilators. Anticoagulated with Eliquis. Objective - Vital Signs Vital signs: Vital Signs Temp 98.2 F 12/01/20 11:02 Pulse 67 12/01/20 11:06 Resp 18 12/01/20 11:02 BP 126/59 12/01/20 11:02 Pulse Ox 98 12/01/20 11:02 Intake & Output 11/30/20 12/01/20 12/01/20 18:59 06:59 18:59 Intake Total 2120 Output Total 950 Balance 2120 -950 Weight 130 kg 133 kg Intake: Intake, IV Titration 500 Amount Sodium Chloride 0.9% 1, 500 000 ml @ 120 mls/hr IV . Q8H20M [facility] Rx#:[id number] Oral 1620 Output: Urine 950 Other: Voiding Method Diaper Diaper Diaper External Catheter External Catheter External Catheter - Exam GENERAL EXAM: Alert, pleasant, 65-year-old morbidly obese female patient, on 2 L of oxygen, with a pulse ox of 98% comfortable in no apparent distress. She has right-sided hemiparesis related to previous history of stroke, and chronic contracture of her right arm and hand. Speech is slow, but appropriate, and patient is oriented 3 HEAD: Normocephalic/atraumatic. EYES: Normal reaction of pupils, equal size. Conjunctiva pink, sclera white. NOSE: Clear with pink turbinates. THROAT: No erythema or exudates. NECK: No masses, no JVD, no thyroid enlargement, no adenopathy. CHEST: No chest wall deformity. Symmetrical expansion. LUNGS: Equal air entry with no crackles, wheeze, rhonchi or dullness. CVS: Regular rate and rhythm, normal S1 and S2, no gallops, no murmurs, no rubs ABDOMEN: Soft, nontender. No hepatosplenomegaly, normal bowel sounds, no guarding or rigidity. EXTREMITIES: No clubbing, no edema, no cyanosis, 2+ pulses and upper and lower extremities. MUSCULOSKELETAL: Patient has chronic right-sided hemiparesis, with chronic contractures of right hand, right arm related to previous history of stroke. Patient is bedbound on a regular basis, requires a Fany lift for transfers SPINE: No scoliosis or deformity SKIN: No rashes CENTRAL NERVOUS SYSTEM: Alert and oriented -3. Chronic right-sided hemiparesis - Labs CBC & Chem 7: 11/29/20 06:09 11/30/20 09:10 Labs: Abnormal Lab Results - Last 24 Hours (Table) 11/30/20 11/30/20 12/01/20 Range/Units 16:38 20:15 05:48 POC Glucose (mg/dL) 236 H 293 H 210 H (75-99) mg/dL 12/01/20 Range/Units 12:12 POC Glucose (mg/dL) 308 H (75-99) mg/dL Assessment and Plan Assessment: 1 Rule out new onset seizure with the episode of decreased responsiveness, possible focal seizure 2 Altered mental status, rule out possibility of obesity/hypoventilation syndrome, pickwickian syndrome, obstructive sleep apnea 3 Chronic hypoxic respiratory failure possibly related to morbid obesity, and obstructive sleep apnea and history of congestive heart failure with diastolic dysfunction, wears 2 L of oxygen on a regular basis 4 Morbid obesity with BMI of 50.3 kg/m 5 Gait dysfunction, general medical debility, patient requires a lift for transfers 6 History of CVA with right-sided paralysis 7 Diabetes mellitus type 2 8 Hypertension 9 Coronary artery disease 10 History of congestive heart failure with diastolic dysfunction 11 Previous history of pulmonary embolism and DVT, patient is on Eliquis for chronic anti-coagulation 12 Anxiety, depression 13 Non smoker Plan: The patient was seen and evaluated by Dr. Workman She is stable from the pulmonary standpoint On her usual 2 L ABGs were unable to be obtained She would benefit from BiPAP therapy at the ECF Settings of 06/03 with an FiO2 of 28% We will continue to follow I, the cosigning physician, performed a history & physical examination of the patient. Lungs sounds are clear. Maintaining good O2 saturations in the 90s on 2 L/m per nasal cannula. I discussed the assessment and plan of care with my nurse practitioner, Nicole Castro. I attest to the above note as dictated by her.
[2020-12-01 14:20] LABS: Calcium 8.7 mg/dL (8.4-10.2); Potassium 3.9 mmol/L (3.5-5.1)
--- NOTE | 2020-12-01 15:07 | P.PN ---
Progress Note - Text Progress Note Date: 12/01/20 Chief Complaint: Possible seizure History of presenting complaint: This is a 65-year-old patient who follows with Dr. Mina Lopez. Patient is a resident at [facility]. 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 Patient was being given a shower and then noticed that patient became unresponsive status stating. Started twitching. After sometime the patient did improve. Patient at baseline has noted to be having some tremors. Patient was found to have an elevated BUN/creatinine of 141 and 3.6. Patient is transferred here for further workup. Denies any fever and chills. Appetite otherwise fair. Denies any history of head injury or any prior history of seizure. Admitted with acute kidney injury possibly ATN. Started IV fluids. Metabolic encephalopathy from renal failure. Also new onset seizures. Patient was previously on Keppra few years ago following a stroke. Then discontinued. Started on Keppra. EEG did not show any seizure activity showed some metabolic slowing down. Today: Sensorium improving. Oral intake improving. No further seizures Review of systems: Attempted for constitutional, cardiovascular, GI, pulmonary. relevant finding as above Active Medications Acetaminophen (Acetaminophen Tab 325 Mg Tab) 650 mg PO Q6H [facility] Last Admin: 12/01/20 09:44 Dose: Not Given Documented by: Albuterol Sulfate (Albuterol Nebulized 2.5 Mg/3 Ml) 2.5 mg INHALATION RT-QID PRN PRN Reason: Wheezing Albuterol Sulfate (Albuterol Nebulized 2.5 Mg/3 Ml) 2.5 mg INHALATION RT-QID [facility] Last Admin: 12/01/20 10:54 Dose: 2.5 mg Documented by: Allopurinol (Allopurinol 100 Mg Tab) 200 mg PO DAILY [facility] Last Admin: 12/01/20 08:20 Dose: 200 mg Documented by: Apixaban (Apixaban 2.5 Mg Tablet) 2.5 mg PO BID [facility] Last Admin: 12/01/20 08:20 Dose: 2.5 mg Documented by: Atropine Sulfate (Atropine Ophth Soln 1% 5ml Btl) 2 drops SUBLINGUAL Q2H PRN PRN Reason: excess secretions Bisacodyl (Bisacodyl 5 Mg Tablet.Dr) 10 mg PO Q72H PRN PRN Reason: Constipation Carvedilol (Carvedilol 3.125 Mg Tab) 3.125 mg PO BID [facility] Last Admin: 12/01/20 08:19 Dose: 3.125 mg Documented by: Dorzolamide HCl (Dorzolamide Hcl 2% Drops 10 Ml Btl) 1 drops BOTH EYES BID [facility] Last Admin: 12/01/20 08:20 Dose: 1 drops Documented by: Fluorometholone (Fluorometholone 0.1% Ophth Drops 5 Ml Btl) 1 drops RIGHT EYE DAILY [facility] Last Admin: 12/01/20 08:21 Dose: 1 drops Documented by: Folic Acid (Folic Acid 1 Mg Tab) 1 mg PO DAILY [facility] Last Admin: 12/01/20 08:20 Dose: 1 mg Documented by: Guaifenesin (Guaifenesin Syrup 100mg/5ml 200 Mg/10 Ml Cup) 200 mg PO Q4H PRN PRN Reason: Cough Sodium Chloride (Saline 0.9%) 1,000 mls @ 120 mls/hr IV .Q8H20M [facility] Last Admin: 12/01/20 12:18 Dose: Not Given Documented by: Insulin Aspart (Insulin Aspart (Novolog) 100 Unit/Ml Vial) 0 unit SQ [facility]; Protocol Last Admin: 12/01/20 12:17 Dose: 8 unit Documented by: Insulin Aspart (Insulin Aspart (Novolog) 100 Unit/Ml Vial) 14 unit SQ AC-TID [facility] Last Admin: 12/01/20 12:17 Dose: 14 unit Documented by: Insulin Detemir (Insulin Detemir (Levemir) 100 Unit/Ml Syr) 60 unit SQ HS [facility] Last Admin: 11/30/20 21:32 Dose: 60 unit Documented by: Latanoprost (Latanoprost 0.005% Ophth Drops 2.5 Ml Btl) 1 drops BOTH EYES DAILY [facility] Last Admin: 12/01/20 08:21 Dose: 1 drops Documented by: Levetiracetam (Levetiracetam 250 Mg Tab) 250 mg PO DAILY [facility] Last Admin: 12/01/20 08:19 Dose: 250 mg Documented by: Magnesium Oxide (Magnesium Oxide 400 Mg Tab) 200 mg PO BID [facility] Last Admin: 12/01/20 08:19 Dose: 200 mg Documented by: Melatonin (Melatonin 5 Mg Tablet) 5 mg PO HS [facility] Last Admin: 11/30/20 21:33 Dose: Not Given Documented by: Midodrine (Midodrine 5 Mg Tab) 5 mg PO TID [facility] Last Admin: 12/01/20 08:20 Dose: 5 mg Documented by: Naloxone HCl (Naloxone 0.4 Mg/Ml 1 Ml Vial) 0.2 mg IV Q2M PRN PRN Reason: Opioid Reversal Nitroglycerin (Nitroglycerin Sl Tabs 0.4 Mg Tab) 0.4 mg SUBLINGUAL Q5M PRN PRN Reason: Chest Pain Pantoprazole Sodium (Pantoprazole 40 Mg Tablet) 40 mg PO AC-BRKFST [facility] Last Admin: 12/01/20 08:20 Dose: 40 mg Documented by: Pregabalin (Pregabalin 50 Mg Cap) 50 mg PO BID [facility] Last Admin: 12/01/20 08:20 Dose: 50 mg Documented by: Sertraline HCl (Sertraline 100 Mg Tab) 100 mg PO DAILY [facility] Last Admin: 12/01/20 08:20 Dose: 100 mg Documented by: Sodium Chloride (Sodium Chloride 0.65% Nasal [place] 44 Ml Btl) 1 spray NASAL Q2H PRN PRN Reason: nasal dryness Timolol Maleate (Timolol 0.5% Ophth Drops 5 Ml Btl) 1 drops BOTH EYES BID [facility] Last Admin: 12/01/20 08:20 Dose: 1 drops Documented by: Past medical history to include: Chronic kidney disease stage IV from nephrosclerosis, coronary artery disease, right-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 Currently a resident at [facility]. Nonambulatory. Family history: Reviewed, noncontributory to presentation Physical examination: VITAL SIGNS: 98.2, 69, 18, 1 26 x 59, 98% on 2 L GENERAL: Laying in bed, less tired EYES: Pupils equal. Conjunctiva normal. HEENT: External appearance of nose and ears normal, oral cavity grossly normal. NECK: Short and thick, JVD unable to assess; masses not palpable. HEART: Distant heart sounds no edema. LUNGS: Respiratory rate increased, distant breath sounds. ABDOMEN: Soft, nontender, liver spleen not palpable, no masses palpable. PSYCH: Answering questions slightly better NEUROLOGICAL: Cranial nerves grossly intact; no facial asymmetry, power and sensation grossly intact. No tremors INVESTIGATIONS, reviewed in the clinical context: December 01: Potassium 3.9 bun 104 creatinine 2.06 November 30: Potassium 3.7 bicarb 35 bun 118 creatinine 2.86 Accu-Cheks 243 EEG: No epileptiform activity. Evidence of encephalopathy. November 29: WBC 9.7 hemoglobin 9.2 platelets 210 potassium 3.9 bun 133 creatinine 3.08 [From [facility]] Sodium 143 potassium 3.8 BUN 4 and 41 and creatinine 3.6 albumin 3.9 calcium 9.2 vitamin B12 143 TSH 2.46 magnesia 1.3 phosphorus 5.3 WBC 8.8 hemoglobin 9.8 platelets 220 Assessment and plan: -New onset of seizures - prior stroke which can be a focus with the same. Patient was on Keppra in the past. Then discontinued because no further seizures Started on Keppra after discussion with neurology -Acute metabolic encephalopathy from renal failure-slow to respond Follow clinically -Acute kidney injury , possibly prerenal, ATN-slow to respond Hold off diuretics for now. IV hydration. -Chronic kidney disease stage IV from nephrosclerosis Follow electrolytes -Coronary artery disease with prior history of stent Continue with Coreg -Right hemiparesis from prior stroke -Diabetes mellitus type 2, chronically on insulin-uncontrolled with hyperglycemia Increase Lantus at 70 units at night and 16 units of NovoLog with meals. Victoza is not available in the hospital -GERD Continue PPI -Hyperuricemia Continue allopurinol -Essential hypertension Continue Lopressor -Chronic medical debility at her baseline. Does use a higher lift -Morbid obesity BMI 49.4 Weight loss measures and follow-up with PCP -Anxiety depression otherwise specified Continue with Zoloft -Normocytic anemia of chronic kidney disease Follow H&H -Obesity hypoventilation syndrome likely with restrictive lung disease from the same Continue with Ventolin nebulizer Increased dose of Levemir and NovoLog. Continue IV fluids. Repeat labs
[2020-12-01 16:47] LABS: Glucose,Whole Blood 261 mg/dL (75-99)
[2020-12-01 20:03] LABS: % Iron Saturation 13.22 (12.00-45.00)
[2020-12-01] MEDS: MELATONIN 5 MG TABLET PO SCH (20:38)
[2020-12-01 20:40] LABS: Glucose,Whole Blood 287 mg/dL (75-99)
[2020-12-01] MEDS ORDERED: INSULIN DETEMIR (LEVEMIR) 100 UNIT/ML SYR SQ SCH (21:00)
[2020-12-02] MEDS: ACETAMINOPHEN TAB 325 MG TAB PO SCH ×3 (06:26→15:43)
[2020-12-02 07:19] LABS: Glucose,Whole Blood 234 mg/dL (75-99)
[2020-12-02] MEDS: ALBUTEROL NEBULIZED 2.5 MG/3 ML INHALATION SCH ×4 (07:22→20:05)
[2020-12-02] MEDS: allopurinoL 100 MG TAB PO SCH (07:31)
[2020-12-02] MEDS: levETIRAcetam 250 MG TAB PO SCH (07:31)
[2020-12-02] MEDS: carvediloL 3.125 MG TAB PO SCH ×2 (07:31→22:41)
[2020-12-02] MEDS: PANTOPRAZOLE 40 MG TABLET PO SCH (07:31)
[2020-12-02] MEDS: MAGNESIUM OXIDE 400 MG TAB PO SCH ×2 (07:31→22:41)
[2020-12-02] MEDS: APIXABAN 2.5 MG TABLET PO SCH ×2 (07:31→22:41)
[2020-12-02] MEDS: PREGABALIN 50 MG CAP PO SCH ×2 (07:31→22:41)
[2020-12-02] MEDS: FOLIC ACID 1 MG TAB PO SCH (07:31)
[2020-12-02] MEDS: SERTRALINE 100 MG TAB PO SCH (07:31)
[2020-12-02] MEDS: MIDODRINE 5 MG TAB PO SCH ×3 (07:31→16:30)
[2020-12-02] MEDS: TIMOLOL 0.5% OPHTH DROPS 5 ML BTL BOTH EYES SCH ×2 (07:32→22:43)
[2020-12-02] MEDS: LATANOPROST 0.005% OPHTH DROPS 2.5 ML BTL BOTH EYES SCH (07:32)
[2020-12-02] MEDS: INSULIN ASPART (NovoLOG) 100 UNIT/ML VIAL SQ SCH ×8 (07:33→22:42)
[2020-12-02] MEDS: FLUOROMETHOLONE 0.1% OPHTH DROPS 5 ML BTL RIGHT EYE SCH (07:33)
[2020-12-02] MEDS: DORZOLAMIDE HCL 2% DROPS 10 ML BTL BOTH EYES SCH ×2 (07:33→22:42)
[2020-12-02 09:07] LABS: Calcium 8.8 mg/dL (8.4-10.2)
[2020-12-02] MEDS: SODIUM CHLORIDE 0.9% 1,000 ML IV SCH ×2 (09:25→12:13)
--- NOTE | 2020-12-02 10:03 | P.PN ---
Subjective Progress Note Date: 12/02/20 Principal diagnosis: This is a 65-year-old female who is a extended care facility resident, and is morbidly obese, came in because of change in mental status and near syncope. She is seen because of acute kidney injury likely from reduce intake fluid depletion and IV fluids were started creatinine has improved, as well as chronic kidney disease. Her baseline creatinine is 2.1 as of 08/13/2020, came in with creatinine of 3.08 and with IV fluids creatinine improved to 2.86 > 21> 2.4 up again today. No history of nausea vomiting according to nursing staff she is eating very well and she is wearing diapers and therefore met. Currently is somewhat disoriented to time but not to place. She is denying any fever chills cough shortness of breath. No nausea vomiting diarrhea In the past she is known with coronary artery disease, diabetes type 2, hypertension and chronic debility Objective - Vital Signs Vital signs: Vital Signs Temp 97.9 F 12/02/20 07:38 Pulse 67 12/02/20 08:00 Resp 16 12/02/20 07:38 BP 128/57 12/02/20 07:38 Pulse Ox 99 12/02/20 07:38 Intake & Output 12/01/20 12/02/20 12/02/20 18:59 06:59 18:59 Intake Total 180 360 Output Total 850 900 Balance -670 -900 360 Weight 134 kg Intake: Oral 180 360 Output: Urine 850 900 Other: Voiding Method Diaper Diaper Diaper External Catheter External Catheter External Catheter # Voids 1 # Bowel Movements 1 She is a morbidly obese individual, awake alert but disoriented A chin exam no JVP neck is supple no facial asymmetry Lungs are clear to auscultation good air entry bilaterally Heart sounds unremarkable for any murmur rub gallop Abdomen soft nontender obese difficult to examine Extreme exam was moderate edema Neurologically awake alert but disoriented. She her left on has fair amount of strength was able to lift it up but the right on is weak - Labs CBC & Chem 7: 11/29/20 06:09 12/02/20 07:50 Labs: Abnormal Lab Results - Last 24 Hours (Table) 11/30/20 12/01/20 12/01/20 Range/Units 09:10 12:12 13:01 Carbon Dioxide (22-30) mmol/L BUN 104 H* (7-17) mg/dL Creatinine 2.16 H (0.52-1.04) mg/dL Glucose 274 H (74-99) mg/dL POC Glucose (mg/dL) 308 H (75-99) mg/dL Iron 39 L (50-170) ug/dL 12/01/20 12/01/20 12/02/20 Range/Units 16:43 20:31 07:16 Carbon Dioxide (22-30) mmol/L BUN (7-17) mg/dL Creatinine (0.52-1.04) mg/dL Glucose (74-99) mg/dL POC Glucose (mg/dL) 261 H 287 H 234 H (75-99) mg/dL Iron (50-170) ug/dL 12/02/20 Range/Units 07:50 Carbon Dioxide 32 H (22-30) mmol/L BUN 95 H (7-17) mg/dL Creatinine 2.40 H (0.52-1.04) mg/dL Glucose 217 H (74-99) mg/dL POC Glucose (mg/dL) (75-99) mg/dL Iron (50-170) ug/dL Assessment and Plan Assessment: Impression 1. Acute kidney injury from prerenal from syncope and possibly low blood pressure, improving with IV fluids. Creatinine improved from 3.08-2.86 and further to 2.16 but this morning has gone up to 2.4. No clear-cut etiology vital signs are stable she is eating well. There has been no nephrotoxic medications. Rule out neurogenic bladder 2. Chronic kidney disease stage IV, secondary to nephrosclerosis baseline creatinine is about 2.1, urinalysis shows trace proteinuria not quantified unlikely diabetic nephropathy but cannot be ruled out 3. Admitted with near syncope. Rule out seizures 4. Morbid obesity, nonhealing ulceration right heel 5. Extended care facility resident, with history of CVA in the past 6. Anemia hemoglobin is 9.2. 7. Iron deficiency 30% dated 11/30/2020 Recommendation 1. Continue IV fluids for another 24 hours and then may be discontinued. Currently on normal saline at 120 MLS admitted. 2. IV Ferrlecit 125 mg 3 doses 3. Monitor lites intake and output. 4. Check bladder scan for postvoid residual
[2020-12-02] MEDS: SODIUM FERRIC GLUCONAT-SUCROSE 125 MG in SODIUM CHLORIDE 0.9% 100 ML IVPB SCH (11:36)
[2020-12-02 12:25] LABS: Glucose,Whole Blood 219 mg/dL (75-99)
--- NOTE | 2020-12-02 13:35 | P.PN ---
Subjective Progress Note Date: 12/02/20 Principal diagnosis: Obesity/hypoventilation syndrome. This is a 65-year-old white female patient who is a resident at the [facility], patient has history of CVA with chronic right-sided paralysis, diabetes mellitus type 2, hypertension, morbid obesity, chronic kidney disease stage IV. Patient had been at the [facility] for the past several months, she is quite debilitated, and requires extensive assistance with all of her activities of daily living, she requires a Fany lift for transfers in and out of bed. She was being given a shower at the [facility], where she became unresponsive and started twitching. After sometime the patient did improve. Patient does have some tremors at her baseline. At the time patient did not have her usual supplemental oxygen at 2 L/m. There is no history of fever or chills, her appetite has been fair. Denies any prior history of head injury or seizure. She was transferred to [facility] for evaluation. Her lab work at [facility] showed evidence of acute on chronic kidney failure. Her admission labs upon transfer to the [facility] showed white blood cell count of 9.7, hemoglobin 9.2, BUN of 133, creatinine is 3.08, CO2 is 37, the rest of electrolytes were within normal limits, her serum glucose was elevated at 279, magnesium was 1.4, LFTs were within normal limits, urinalysis showed trace protein, 3+ glucose but no evidence of infection, COVID-19 PCR was negative. Chest x-ray showed low lung volumes, enlarged heart, and left basilar airspace opacity suggestive of small pleural effusion with adjacent atelectasis. Neurology consultation was obtained regarding possibility of seizures, and EEG was abnormal related to background slowing of moderate degree, suggestive of generalized cerebral dysfunction secondary to toxic metabolic encephalopathy or due to diffuse structural brain abnormality. Carotid Dopplers were obtained showing no significant flow-limiting stenosis within the carotid vessels. Patient is awake and alert, her verbal responses are slow, but are appropriate to content. She gave some limited history, she knew where she resided and she knew how long she had been there, she denies wearing a CPAP or BiPAP device at the care home, no prior history of obstructive sleep apnea. She does wear oxygen on a regular basis at 2 L. Appears to be in no acute distress, denies any chest pain, denies any cough. We're consulted in regards to possibility of obstructive sleep apnea, hypoventilation syndrome. The patient is seen today 12/01/2020 in follow-up on the selective care unit. She is currently awake and alert. She is resting fairly comfortably in bed. She is maintaining O2 saturations in the 90s on 2 L/m per nasal cannula. She's been afebrile. Hemodynamically stable. Blood glucose 308. ABGs were unable to be obtained. She is continued on bronchodilators. Anticoagulated with Eliquis. Reevaluated today on 12/02/2020, patient is doing great, relatively asymptomatic, pulmonary-pastor, the patient has no cough no wheezing no shortness of breath, and it would be difficult to qualify the patient for BiPAP, however I would recommend BiPAP at the care home since clinically the patient clearly has obesity/hypoventilation syndrome, and I would believe that she would benefit from BiPAP 06/03 at night or as needed Objective - Vital Signs Vital signs: Vital Signs Temp 97.7 F 12/02/20 11:39 Pulse 63 12/02/20 11:40 Resp 16 12/02/20 11:39 BP 114/62 12/02/20 11:39 Pulse Ox 98 12/02/20 11:39 Intake & Output 12/01/20 12/02/20 12/02/20 18:59 06:59 18:59 Intake Total 180 360 Output Total 850 900 Balance -670 -900 360 Weight 134 kg Intake: Oral 180 360 Output: Urine 850 900 Other: Voiding Method Diaper Diaper Diaper External Catheter External Catheter External Catheter # Voids 1 # Bowel Movements 1 - Exam GENERAL EXAM: Revealed 65-year-old female in no distress. Patient is morbidly obese, she has right-sided hemiparesis related to previous history of stroke, and chronic contracture of her right arm and hand. HEAD: Normocephalic/atraumatic. EENT: Short obese neck, PERRLA, EOMI, nonicteric, or masses, no JVD, no stridor, no lymphadenopathy. CHEST: No chest wall deformity. Symmetrical expansion. LUNGS: Diminished breath sounds at the bases no rhonchi and no wheezes. CVS: Distant S1 and S2, no S3 gallop. ABDOMEN: Obese, Soft, nontender. No hepatosplenomegaly, normal bowel sounds, no guarding or rigidity. EXTREMITIES: No clubbing, no edema, no cyanosis, 2+ pulses and upper and lower extremities. MUSCULOSKELETAL: Patient has chronic right-sided hemiparesis, with chronic contractures of right hand, right arm related to previous history of stroke. Patient is bedbound on a regular basis, requires a Fany lift for transfers SKIN: No rashes CENTRAL NERVOUS SYSTEM: Alert and oriented 3. Right sided hemiparesis, no focal deficit otherwise. - Labs CBC & Chem 7: 11/29/20 06:09 12/02/20 07:50 Labs: Abnormal Lab Results - Last 24 Hours (Table) 11/30/20 12/01/20 12/01/20 Range/Units 09:10 13:01 16:43 Carbon Dioxide (22-30) mmol/L BUN 104 H* (7-17) mg/dL Creatinine 2.16 H (0.52-1.04) mg/dL Glucose 274 H (74-99) mg/dL POC Glucose (mg/dL) 261 H (75-99) mg/dL Iron 39 L (50-170) ug/dL 12/01/20 12/02/20 12/02/20 Range/Units 20:31 07:16 07:50 Carbon Dioxide 32 H (22-30) mmol/L BUN 95 H (7-17) mg/dL Creatinine 2.40 H (0.52-1.04) mg/dL Glucose 217 H (74-99) mg/dL POC Glucose (mg/dL) 287 H 234 H (75-99) mg/dL Iron (50-170) ug/dL 12/02/20 Range/Units 12:09 Carbon Dioxide (22-30) mmol/L BUN (7-17) mg/dL Creatinine (0.52-1.04) mg/dL Glucose (74-99) mg/dL POC Glucose (mg/dL) 219 H (75-99) mg/dL Iron (50-170) ug/dL Assessment and Plan Assessment: Impression: Obesity/hypoventilation syndrome. Altered mental status secondary to acute metabolic encephalopathy. This is being addressed by neurology on the case. Seizure I believe was already ruled out. Type 2 diabetes. Morbid obesity with BMI of 50.7 Coronary artery disease History of diastolic congestive heart failure History of pulmonary embolism and DVT, maintained on Eliquis History of depression. Lifetime nonsmoker. History of CVA and right-sided hemiparesis/paralysis Bedbound patient requires a lift for transfers Recommendation: Continue present supportive care measures. Would recommend BiPAP since we could not have a sleep study at this point, and ABG could not be done. Patient will benefit from BiPAP 12//28% FiO2 at the care home. Will clear the patient to be discharged home tomorrow as long as she is cleared by other consultants. Time with Patient: Less than 30
[2020-12-02 16:41] LABS: Glucose,Whole Blood 211 mg/dL (75-99)
--- NOTE | 2020-12-02 16:41 | P.PN ---
Progress Note - Text Progress Note Date: 12/02/20 Chief Complaint: Possible seizure History of presenting complaint: This is a 65-year-old patient who follows with Dr. Mina Lopez. Patient is a resident at [facility]. 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 Patient was being given a shower and then noticed that patient became unresponsive status stating. Started twitching. After sometime the patient did improve. Patient at baseline has noted to be having some tremors. Patient was found to have an elevated BUN/creatinine of 141 and 3.6. Patient is transferred here for further workup. Denies any fever and chills. Appetite otherwise fair. Denies any history of head injury or any prior history of seizure. Admitted with acute kidney injury possibly ATN. Started IV fluids. Metabolic encephalopathy from renal failure. Also new onset seizures. Patient was previously on Keppra few years ago following a stroke. Then discontinued. Started on Keppra. EEG did not show any seizure activity showed some metabolic slowing down. Sensorium has been slowly improving as his renal function is improving Today: Laying in bed. Some improvement in sensorium. Oral intake fair. Getting IV fluids. Review of systems: Attempted for constitutional, cardiovascular, GI, pulmonary. relevant finding as above Active Medications Acetaminophen (Acetaminophen Tab 325 Mg Tab) 650 mg PO Q6HR [facility] Last Admin: 12/02/20 15:43 Dose: Not Given Documented by: Albuterol Sulfate (Albuterol Nebulized 2.5 Mg/3 Ml) 2.5 mg INHALATION RT-QID PRN PRN Reason: Wheezing Albuterol Sulfate (Albuterol Nebulized 2.5 Mg/3 Ml) 2.5 mg INHALATION RT-QID [facility] Last Admin: 12/02/20 15:32 Dose: 2.5 mg Documented by: Allopurinol (Allopurinol 100 Mg Tab) 200 mg PO DAILY [facility] Last Admin: 12/02/20 07:31 Dose: 200 mg Documented by: Apixaban (Apixaban 2.5 Mg Tablet) 2.5 mg PO BID [facility] Last Admin: 12/02/20 07:31 Dose: 2.5 mg Documented by: Atropine Sulfate (Atropine Ophth Soln 1% 5ml Btl) 2 drops SUBLINGUAL Q2H PRN PRN Reason: excess secretions Bisacodyl (Bisacodyl 5 Mg Tablet.Dr) 10 mg PO Q72H PRN PRN Reason: Constipation Carvedilol (Carvedilol 3.125 Mg Tab) 3.125 mg PO BID [facility] Last Admin: 12/02/20 07:31 Dose: 3.125 mg Documented by: Dorzolamide HCl (Dorzolamide Hcl 2% Drops 10 Ml Btl) 1 drops BOTH EYES BID [facility] Last Admin: 12/02/20 07:33 Dose: 1 drops Documented by: Fluorometholone (Fluorometholone 0.1% Ophth Drops 5 Ml Btl) 1 drops RIGHT EYE DAILY [facility] Last Admin: 12/02/20 07:33 Dose: 1 drops Documented by: Folic Acid (Folic Acid 1 Mg Tab) 1 mg PO DAILY [facility] Last Admin: 12/02/20 07:31 Dose: 1 mg Documented by: Guaifenesin (Guaifenesin Syrup 100mg/5ml 200 Mg/10 Ml Cup) 200 mg PO Q4H PRN PRN Reason: Cough Sodium Chloride (Saline 0.9%) 1,000 mls @ 120 mls/hr IV .Q8H20M [facility] Last Admin: 12/02/20 12:13 Dose: Not Given Documented by: Ferric Sodium Gluconate 125 mg (/ Sodium Chloride) 110 mls @ 100 mls/hr IVPB DAILY [facility] Stop: 12/04/20 10:31 Last Admin: 12/02/20 11:36 Dose: 100 mls/hr Documented by: Insulin Aspart (Insulin Aspart (Novolog) 100 Unit/Ml Vial) 0 unit SQ ACHS [facility]; Protocol Last Admin: 12/02/20 12:13 Dose: 4 unit Documented by: Insulin Aspart (Insulin Aspart (Novolog) 100 Unit/Ml Vial) 18 unit SQ AC-TID [facility] Last Admin: 12/02/20 16:31 Dose: 18 unit Documented by: Insulin Detemir (Insulin Detemir (Levemir) 100 Unit/Ml Syr) 70 unit SQ HS [facility] Last Admin: 12/01/20 20:38 Dose: 70 unit Documented by: Latanoprost (Latanoprost 0.005% Ophth Drops 2.5 Ml Btl) 1 drops BOTH EYES DAILY [facility] Last Admin: 12/02/20 07:32 Dose: 1 drops Documented by: Levetiracetam (Levetiracetam 250 Mg Tab) 250 mg PO DAILY [facility] Last Admin: 12/02/20 07:31 Dose: 250 mg Documented by: Magnesium Oxide (Magnesium Oxide 400 Mg Tab) 200 mg PO BID [facility] Last Admin: 12/02/20 07:31 Dose: 200 mg Documented by: Melatonin (Melatonin 5 Mg Tablet) 5 mg PO HS [facility] Last Admin: 12/01/20 20:38 Dose: 5 mg Documented by: Midodrine (Midodrine 5 Mg Tab) 2.5 mg PO AC-TID [facility] Last Admin: 12/02/20 16:30 Dose: Not Given Documented by: Naloxone HCl (Naloxone 0.4 Mg/Ml 1 Ml Vial) 0.2 mg IV Q2M PRN PRN Reason: Opioid Reversal Nitroglycerin (Nitroglycerin Sl Tabs 0.4 Mg Tab) 0.4 mg SUBLINGUAL Q5M PRN PRN Reason: Chest Pain Pantoprazole Sodium (Pantoprazole 40 Mg Tablet) 40 mg PO AC-BRKFST [facility] Last Admin: 12/02/20 07:31 Dose: 40 mg Documented by: Pregabalin (Pregabalin 50 Mg Cap) 50 mg PO BID [facility] Last Admin: 12/02/20 07:31 Dose: 50 mg Documented by: Sertraline HCl (Sertraline 100 Mg Tab) 100 mg PO DAILY [facility] Last Admin: 12/02/20 07:31 Dose: 100 mg Documented by: Sodium Chloride (Sodium Chloride 0.65% Nasal [place] 44 Ml Btl) 1 spray NASAL Q2H PRN PRN Reason: nasal dryness Timolol Maleate (Timolol 0.5% Ophth Drops 5 Ml Btl) 1 drops BOTH EYES BID [facility] Last Admin: 12/02/20 07:32 Dose: 1 drops Documented by: Past medical history to include: Chronic kidney disease stage IV from nephrosclerosis, coronary artery disease, right-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 Currently a resident at [facility]. Nonambulatory. Family history: Reviewed, noncontributory to presentation Physical examination: VITAL SIGNS: 97.7, 63, 16, 140/62, 98% on 2 L GENERAL: Laying in bed, looking a bit better EYES: Pupils equal. Conjunctiva normal. HEENT: External appearance of nose and ears normal, oral cavity grossly normal. NECK: Short and thick, JVD unable to assess; masses not palpable. HEART: Distant heart sounds no edema. LUNGS: Respiratory rate increased, distant breath sounds. ABDOMEN: Soft, nontender, liver spleen not palpable, no masses palpable. PSYCH: Answering questions better NEUROLOGICAL: Cranial nerves grossly intact; no facial asymmetry, power and sensation grossly intact. No tremors INVESTIGATIONS, reviewed in the clinical context: December 02: Potassium 4 bun 95 creatinine 2.4 December 01: Potassium 3.9 bun 104 creatinine 2.06 November 30: Potassium 3.7 bicarb 35 bun 118 creatinine 2.86 Accu-Cheks 243 EEG: No epileptiform activity. Evidence of encephalopathy. November 29: WBC 9.7 hemoglobin 9.2 platelets 210 potassium 3.9 bun 133 creatinine 3.08 [From [facility]] Sodium 143 potassium 3.8 BUN 4 and 41 and creatinine 3.6 albumin 3.9 calcium 9.2 vitamin B12 143 TSH 2.46 magnesia 1.3 phosphorus 5.3 WBC 8.8 hemoglobin 9.8 platelets 220 Assessment and plan: -New onset of seizures - prior stroke which can be a focus with the same. Patient was on Keppra in the past. Then discontinued because no further seizures Started on Keppra after discussion with neurology -Acute metabolic encephalopathy from renal failure-slow to respond Follow clinically -Acute kidney injury , possibly prerenal, ATN-slow to respond Hold off diuretics for now. IV hydration. -Chronic kidney disease stage IV from nephrosclerosis Follow electrolytes -Coronary artery disease with prior history of stent Continue with Coreg -Right hemiparesis from prior stroke -Diabetes mellitus type 2, chronically on insulin-uncontrolled with hyperglycemia Increase Lantus at 70 units at night and 16 units of NovoLog with meals. Victoza is not available in the hospital -GERD Continue PPI -Hyperuricemia Continue allopurinol -Essential hypertension Continue Lopressor -Chronic medical debility at her baseline. Does use a higher lift -Morbid obesity BMI 49.4 Weight loss measures and follow-up with PCP -Anxiety depression otherwise specified Continue with Zoloft -Normocytic anemia of chronic kidney disease Follow H&H -Obesity hypoventilation syndrome likely with restrictive lung disease from the same Continue with Ventolin nebulizer Increase Levemir to 76 units and scheduled NovoLog to 18 units with meals. IV fluids to continue. Repeat labs.
[2020-12-02 19:59] LABS: Glucose,Whole Blood 208 mg/dL (75-99)
[2020-12-02] MEDS ORDERED: INSULIN DETEMIR (LEVEMIR) 100 UNIT/ML SYR SQ SCH (21:00)
[2020-12-02] MEDS: MELATONIN 5 MG TABLET PO SCH (22:43)
[2020-12-03 06:49] LABS: Glucose,Whole Blood 173 mg/dL (75-99)
[2020-12-03] MEDS: ACETAMINOPHEN TAB 325 MG TAB PO SCH ×4 (06:54→17:58)
[2020-12-03] MEDS: MIDODRINE 5 MG TAB PO SCH ×3 (06:58→17:59)
[2020-12-03] MEDS: INSULIN ASPART (NovoLOG) 100 UNIT/ML VIAL SQ SCH ×7 (06:59→20:48)
[2020-12-03] MEDS: ALBUTEROL NEBULIZED 2.5 MG/3 ML INHALATION SCH ×4 (08:06→19:05)
[2020-12-03] MEDS: SERTRALINE 100 MG TAB PO SCH (08:37)
[2020-12-03] MEDS: allopurinoL 100 MG TAB PO SCH (08:38)
[2020-12-03] MEDS: PREGABALIN 50 MG CAP PO SCH ×2 (08:38→20:48)
[2020-12-03] MEDS: FOLIC ACID 1 MG TAB PO SCH (08:39)
[2020-12-03] MEDS: APIXABAN 2.5 MG TABLET PO SCH ×2 (08:39→20:48)
[2020-12-03] MEDS: MAGNESIUM OXIDE 400 MG TAB PO SCH ×2 (08:39→20:48)
[2020-12-03] MEDS: carvediloL 3.125 MG TAB PO SCH ×2 (08:39→20:48)
[2020-12-03] MEDS: DORZOLAMIDE HCL 2% DROPS 10 ML BTL BOTH EYES SCH ×2 (08:39→20:50)
[2020-12-03] MEDS: levETIRAcetam 250 MG TAB PO SCH (08:39)
[2020-12-03] MEDS: FLUOROMETHOLONE 0.1% OPHTH DROPS 5 ML BTL RIGHT EYE SCH (08:40)
[2020-12-03] MEDS: TIMOLOL 0.5% OPHTH DROPS 5 ML BTL BOTH EYES SCH ×2 (08:40→20:50)
[2020-12-03] MEDS: PANTOPRAZOLE 40 MG TABLET PO SCH (08:47)
[2020-12-03] MEDS: SODIUM FERRIC GLUCONAT-SUCROSE 125 MG in SODIUM CHLORIDE 0.9% 100 ML IVPB SCH (08:47)
[2020-12-03 11:48] LABS: Glucose,Whole Blood 203 mg/dL (75-99)
[2020-12-03] MEDS: SODIUM CHLORIDE 0.9% 1,000 ML IV SCH ×3 (11:50→20:50)
[2020-12-03 12:46] LABS: Calcium 8.7 mg/dL (8.4-10.2); Potassium 4.4 mmol/L (3.5-5.1)
--- NOTE | 2020-12-03 13:43 | P.PN ---
Subjective Progress Note Date: 12/03/20 Principal diagnosis: Renal failure. The patient is seen today 12/01/2020 in follow-up on the selective care unit. She is currently awake and alert. She is resting fairly comfortably in bed. She is maintaining O2 saturations in the 90s on 2 L/m per nasal cannula. She's been afebrile. Hemodynamically stable. Blood glucose 308. ABGs were unable to be obtained. She is continued on bronchodilators. Anticoagulated with Eliquis. Reevaluated today on 12/02/2020, patient is doing great, relatively asymptomatic, pulmonary-pastor, the patient has no cough no wheezing no shortness of breath, and it would be difficult to qualify the patient for BiPAP, however I would recommend BiPAP at the long term since clinically the patient clearly has obesity/hypoventilation syndrome, and I would believe that she would benefit from BiPAP 12/6 at night or as needed Progress note dated 12/03/2020. This is a 65-year-old female with a history of pickwickian syndrome. She is a resident at the [facility]. She has a prior history of CVA, right-sided paralysis, morbid obesity, diabetes mellitus, type II, essential hypertension, and stage IV chronic kidney disease. Currently, the patient is a DO NOT RESUSCITATE. She's currently on 2 L nasal cannula. We recommend BiPAP at nighttime with settings of IPAP 12, EPAP 6. Currently, the patient is resting comfortably without any complaints at this time. She is quite debilitated, and bed ridden. Laboratory data from today includes a sodium 140, potassium 4.4, chlorides 104, CO2 32, anion gap 4, BUN 87, and creatinine 2.12. Objective - Vital Signs Vital signs: Vital Signs Temp 98.3 F 12/03/20 08:00 Pulse 71 12/03/20 11:21 Resp 18 12/03/20 08:40 BP 150/63 12/03/20 08:00 Pulse Ox 93 L 12/03/20 08:00 Intake & Output 12/02/20 12/03/20 12/03/20 18:59 06:59 18:59 Intake Total 840 480 Output Total 475 1100 Balance 365 -1100 480 Weight 135.5 kg Intake: Oral 840 480 Output: Urine 475 1100 Other: Voiding Method Diaper Diaper Diaper External Catheter External Catheter External Catheter - Exam No acute distress, lethargic and sleepy. Does arouse. Nasal O2 in place. HEENT examination is grossly unremarkable. Neck supple. Full range of motion. No adenopathy thyromegaly or neck vein distention. Cardiovascular examination reveals regular rhythm rate. S1-S2 normal. No S3 or S4. No discernible murmur noted. Heart sounds are distant. Lungs reveal diminished bilateral breath sounds throughout. A few scattered rhonchi are noted. No wheezes or crackles. Breath sounds equal bilaterally. Abdomen soft bowel sounds are heard. No masses or tenderness. Extremities are intact. No cyanosis clubbing or edema. Skin is without rash or lesion. Neurologic examination reveals a right-sided hemiparesis. - Labs CBC & Chem 7: 11/29/20 06:09 12/03/20 11:20 Labs: Abnormal Lab Results - Last 24 Hours (Table) 12/02/20 12/02/20 12/03/20 Range/Units 16:36 19:57 06:47 Carbon Dioxide (22-30) mmol/L BUN (7-17) mg/dL Creatinine (0.52-1.04) mg/dL Glucose (74-99) mg/dL POC Glucose (mg/dL) 211 H 208 H 173 H (75-99) mg/dL 12/03/20 12/03/20 Range/Units 11:20 11:46 Carbon Dioxide 32 H (22-30) mmol/L BUN 87 H (7-17) mg/dL Creatinine 2.12 H (0.52-1.04) mg/dL Glucose 180 H (74-99) mg/dL POC Glucose (mg/dL) 203 H (75-99) mg/dL Assessment and Plan Assessment: Obesity/hypoventilation syndrome (Pickwickian syndrome). Mental status changes secondary to acute metabolic encephalopathy. Diabetes mellitus, type II. Morbid obesity with a BMI of 51. History of CAD. History of diastolic CHF. History of pulmonary embolism and DVT, maintained on Eliquis. History of depression. Lifelong nontobacco use. History of CVA with right-sided hemiparesis. General medical debility. Plan: Plan dated 12/03/2020. Continue supportive care on this patient. The patient should be on BiPAP at nighttime, at 12/6, and 28% at the long term. ABGs cannot be obtained. Additional recommendations and suggestions are forthcoming. Prognosis is poor. We will continue to follow. Discharge planning back to the long term is underway. Time with Patient: Less than 30
--- NOTE | 2020-12-03 14:41 | PN ---
PROGRESS NOTE Patient is seen for followup for acute kidney injury on top of chronic kidney disease. Patient is currently sleeping. She is arousable, not in any acute distress. She is maintained on IV fluids and her renal function has been improving. PHYSICAL EXAMINATION: On examination today, blood pressure was 150/63, heart rate 79 per minute. She is afebrile. Examination of the heart S1, S2. Examination of the lungs, decreased breath sounds at bases. Abdomen is soft. Morbidly obese. Examination of lower extremities shows chronic skin changes. BOTTOM FINISHER exam grossly intact. LAB: Show sodium 140, potassium 4.4, BUN 87, creatinine 2.12. ASSESSMENT: 1. Acute kidney injury, prerenal, currently improving with IV hydration. 2. Chronic kidney disease NKF stage IV with previous creatinine about 2.1, mostly nephrosclerosis, possible diabetic nephropathy as UA showed trace protein. 3. History of cerebrovascular accident. 4. Morbid obesity. 5. Right heel ulcer. PLAN: Encourage increased oral intake. I will decrease IV fluids. Repeat labs in a.m. Avoid nephrotoxic agents. There is no evidence of urine retention. Her postvoid residual has not been high. MMODL / IJN: [id number] /
[2020-12-03] MEDS ORDERED: LACTULOSE 20 GM/30 ML CUP PO ONE (15:21)
[2020-12-03 16:57] LABS: Glucose,Whole Blood 246 mg/dL (75-99)
--- NOTE | 2020-12-03 18:29 | P.PN ---
Progress Note - Text Progress Note Date: 12/03/20 Chief Complaint: Possible seizure History of presenting complaint: This is a 65-year-old patient who follows with Dr. Mina Lopez. Patient is a resident at [facility]. 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 Patient was being given a shower and then noticed that patient became unresponsive status stating. Started twitching. After sometime the patient did improve. Patient at baseline has noted to be having some tremors. Patient was found to have an elevated BUN/creatinine of 141 and 3.6. Patient is transferred here for further workup. Denies any fever and chills. Appetite otherwise fair. Denies any history of head injury or any prior history of seizure. Admitted with acute kidney injury possibly ATN. Started IV fluids. Metabolic encephalopathy from renal failure. Also new onset seizures. Patient was previously on Keppra few years ago following a stroke. Then discontinued. Started on Keppra. EEG did not show any seizure activity showed some metabolic slowing down. Sensorium has been slowly improving as his renal function is improving Today: Slow improvement in sensorium. Answering questions. Better. Eating better. Making urine. CODE STATUS discussed with the patient.: DO NOT RESUSCI ONEIL. IV fluids Review of systems: Was done for constitutional, cardiovascular, GI, pulmonary. relevant finding as above Active Medications Acetaminophen (Acetaminophen Tab 325 Mg Tab) 650 mg PO Q6HR [facility] Last Admin: 12/03/20 17:58 Dose: 650 mg Documented by: Albuterol Sulfate (Albuterol Nebulized 2.5 Mg/3 Ml) 2.5 mg INHALATION RT-QID PRN PRN Reason: Wheezing Albuterol Sulfate (Albuterol Nebulized 2.5 Mg/3 Ml) 2.5 mg INHALATION RT-QID [facility] Last Admin: 12/03/20 15:13 Dose: 2.5 mg Documented by: Allopurinol (Allopurinol 100 Mg Tab) 200 mg PO DAILY [facility] Last Admin: 12/03/20 08:38 Dose: 200 mg Documented by: Apixaban (Apixaban 2.5 Mg Tablet) 2.5 mg PO BID [facility] Last Admin: 12/03/20 08:39 Dose: 2.5 mg Documented by: Atropine Sulfate (Atropine Ophth Soln 1% 5ml Btl) 2 drops SUBLINGUAL Q2H PRN PRN Reason: excess secretions Bisacodyl (Bisacodyl 5 Mg Tablet.Dr) 10 mg PO Q72H PRN PRN Reason: Constipation Carvedilol (Carvedilol 3.125 Mg Tab) 3.125 mg PO BID [facility] Last Admin: 12/03/20 08:39 Dose: 3.125 mg Documented by: Dorzolamide HCl (Dorzolamide Hcl 2% Drops 10 Ml Btl) 1 drops BOTH EYES BID [facility] Last Admin: 12/03/20 08:39 Dose: 1 drops Documented by: Fluorometholone (Fluorometholone 0.1% Ophth Drops 5 Ml Btl) 1 drops RIGHT EYE DAILY [facility] Last Admin: 12/03/20 08:40 Dose: 1 drops Documented by: Folic Acid (Folic Acid 1 Mg Tab) 1 mg PO DAILY [facility] Last Admin: 12/03/20 08:39 Dose: 1 mg Documented by: Guaifenesin (Guaifenesin Syrup 100mg/5ml 200 Mg/10 Ml Cup) 200 mg PO Q4H PRN PRN Reason: Cough Sodium Chloride (Saline 0.9%) 1,000 mls @ 50 mls/hr IV .Q20H [facility] Last Admin: 12/03/20 18:01 Dose: 50 mls/hr Documented by: Ferric Sodium Gluconate 125 mg (/ Sodium Chloride) 110 mls @ 100 mls/hr IVPB DAILY [facility] Stop: 12/04/20 10:31 Last Admin: 12/03/20 08:47 Dose: 100 mls/hr Documented by: Insulin Aspart (Insulin Aspart (Novolog) 100 Unit/Ml Vial) 0 unit SQ ACHS [facility]; Protocol Last Admin: 12/03/20 18:00 Dose: 5 unit Documented by: Insulin Aspart (Insulin Aspart (Novolog) 100 Unit/Ml Vial) 20 unit SQ AC-TID [facility] Last Admin: 12/03/20 18:00 Dose: 20 unit Documented by: Insulin Detemir (Insulin Detemir (Levemir) 100 Unit/Ml Syr) 76 unit SQ HS [facility] Last Admin: 12/02/20 22:41 Dose: 76 unit Documented by: Latanoprost (Latanoprost 0.005% Ophth Drops 2.5 Ml Btl) 1 drops BOTH EYES DAILY [facility] Last Admin: 12/02/20 07:32 Dose: 1 drops Documented by: Levetiracetam (Levetiracetam 250 Mg Tab) 250 mg PO DAILY [facility] Last Admin: 12/03/20 08:39 Dose: 250 mg Documented by: Magnesium Oxide (Magnesium Oxide 400 Mg Tab) 200 mg PO BID [facility] Last Admin: 12/03/20 08:39 Dose: 200 mg Documented by: Melatonin (Melatonin 5 Mg Tablet) 5 mg PO HS [facility] Last Admin: 12/02/20 22:43 Dose: 5 mg Documented by: Midodrine (Midodrine 5 Mg Tab) 2.5 mg PO AC-TID [facility] Last Admin: 12/03/20 17:59 Dose: 2.5 mg Documented by: Naloxone HCl (Naloxone 0.4 Mg/Ml 1 Ml Vial) 0.2 mg IV Q2M PRN PRN Reason: Opioid Reversal Nitroglycerin (Nitroglycerin Sl Tabs 0.4 Mg Tab) 0.4 mg SUBLINGUAL Q5M PRN PRN Reason: Chest Pain Pantoprazole Sodium (Pantoprazole 40 Mg Tablet) 40 mg PO AC-BRKFST [facility] Last Admin: 12/03/20 08:47 Dose: 40 mg Documented by: Pregabalin (Pregabalin 50 Mg Cap) 50 mg PO BID [facility] Last Admin: 12/03/20 08:38 Dose: 50 mg Documented by: Sertraline HCl (Sertraline 100 Mg Tab) 100 mg PO DAILY [facility] Last Admin: 12/03/20 08:37 Dose: 100 mg Documented by: Sodium Chloride (Sodium Chloride 0.65% Nasal [place] 44 Ml Btl) 1 spray NASAL Q2H PRN PRN Reason: nasal dryness Timolol Maleate (Timolol 0.5% Ophth Drops 5 Ml Btl) 1 drops BOTH EYES BID [facility] Last Admin: 12/03/20 08:40 Dose: 1 drops Documented by: Past medical history to include: Chronic kidney disease stage IV from nephrosclerosis, coronary artery disease, right-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 Currently a resident at [facility]. Nonambulatory. Family history: Reviewed, noncontributory to presentation Physical examination: VITAL SIGNS: 99.3, 68, 16, 1 25 x 56, 95% on 2 L GENERAL: Laying in bed, more awake EYES: Pupils equal. Conjunctiva normal. HEENT: External appearance of nose and ears normal, oral cavity grossly normal. NECK: Short and thick, JVD unable to assess; masses not palpable. HEART: Distant heart sounds no edema. LUNGS: Respiratory rate increased, distant breath sounds. ABDOMEN: Soft, nontender, liver spleen not palpable, no masses palpable. PSYCH: Answering questions , improving NEUROLOGICAL: Cranial nerves grossly intact; no facial asymmetry, power and sensation grossly intact. No tremors INVESTIGATIONS, reviewed in the clinical context: December 03: Potassium 4.4 creatinine 2.12. Accu-Cheks 203 and 246 December 02: Potassium 4 bun 95 creatinine 2.4 December 01: Potassium 3.9 bun 104 creatinine 2.06 November 30: Potassium 3.7 bicarb 35 bun 118 creatinine 2.86 Accu-Cheks 243 EEG: No epileptiform activity. Evidence of encephalopathy. November 29: WBC 9.7 hemoglobin 9.2 platelets 210 potassium 3.9 bun 133 creatinine 3.08 [From [facility]] Sodium 143 potassium 3.8 BUN 4 and 41 and creatinine 3.6 albumin 3.9 calcium 9.2 vitamin B12 143 TSH 2.46 magnesia 1.3 phosphorus 5.3 WBC 8.8 hemoglobin 9.8 platelets 220 Assessment and plan: -New onset of seizures - prior stroke which can be a focus with the same. Patient was on Keppra in the past. Then discontinued because no further seizures Started on Keppra after discussion with neurology -Acute metabolic encephalopathy from renal failure- improving slowly Follow clinically -Acute kidney injury , possibly prerenal, ATN-slow to respond Hold off diuretics for now. IV hydration. -Chronic kidney disease stage IV from nephrosclerosis Follow electrolytes -Coronary artery disease with prior history of stent Continue with Coreg -Right hemiparesis from prior stroke -Diabetes mellitus type 2, chronically on insulin-uncontrolled with hyperglycemia Increase Lantus at 82 units at night and 22 units of NovoLog with meals. Victoza is not available in the hospital -GERD Continue PPI -Hyperuricemia Continue allopurinol -Essential hypertension Continue Lopressor -Chronic medical debility at her baseline. Does use a higher lift -Morbid obesity BMI 49.4 Weight loss measures and follow-up with PCP -Anxiety depression otherwise specified Continue with Zoloft -Normocytic anemia of chronic kidney disease Follow H&H -Obesity hypoventilation syndrome likely with restrictive lung disease from the same Continue with Ventolin nebulizer Increase Levemir to 82 units and scheduled NovoLog to 22 units with meals. Decrease IV fluids to 50 mL an hour. Discharge in 24-48 hours Advanced care planning: This was discussed initially with the patient at the bedside. Then patient's sister came along. Patient's sister Shelbie is also patient's D POA. Agreeable to proceed with DO NOT RESUSCITATE status. They have talked about this before. Papers are available for advanced directives. Questions answered. They understand oral prognosis is guarded. Kidney status was discussed. 20 minutes was spent for this.
[2020-12-03 20:26] LABS: Glucose,Whole Blood 258 mg/dL (75-99)
[2020-12-03] MEDS: MELATONIN 5 MG TABLET PO SCH (20:48)
[2020-12-03] MEDS ORDERED: INSULIN DETEMIR (LEVEMIR) 100 UNIT/ML SYR SQ SCH (21:00)
[2020-12-04] MEDS: ACETAMINOPHEN TAB 325 MG TAB PO SCH ×3 (00:04→12:38)
[2020-12-04 06:13] LABS: Glucose,Whole Blood 129 mg/dL (75-99)
[2020-12-04] MEDS: MIDODRINE 5 MG TAB PO SCH ×3 (06:29→17:59)
[2020-12-04] MEDS: PANTOPRAZOLE 40 MG TABLET PO SCH (06:30)
[2020-12-04] MEDS: ALBUTEROL NEBULIZED 2.5 MG/3 ML INHALATION SCH ×4 (07:29→19:44)
[2020-12-04] MEDS: INSULIN ASPART (NovoLOG) 100 UNIT/ML VIAL SQ SCH ×6 (07:45→17:59)
[2020-12-04] MEDS: MAGNESIUM OXIDE 400 MG TAB PO SCH (09:42)
[2020-12-04] MEDS: levETIRAcetam 250 MG TAB PO SCH (09:42)
[2020-12-04] MEDS: DORZOLAMIDE HCL 2% DROPS 10 ML BTL BOTH EYES SCH (09:43)
[2020-12-04] MEDS: FLUOROMETHOLONE 0.1% OPHTH DROPS 5 ML BTL RIGHT EYE SCH (09:43)
[2020-12-04] MEDS: APIXABAN 2.5 MG TABLET PO SCH (09:43)
[2020-12-04] MEDS: FOLIC ACID 1 MG TAB PO SCH (09:43)
[2020-12-04] MEDS: TIMOLOL 0.5% OPHTH DROPS 5 ML BTL BOTH EYES SCH (09:43)
[2020-12-04] MEDS: PREGABALIN 50 MG CAP PO SCH (09:43)
[2020-12-04] MEDS: allopurinoL 100 MG TAB PO SCH (09:43)
[2020-12-04] MEDS: SERTRALINE 100 MG TAB PO SCH (09:43)
[2020-12-04] MEDS: carvediloL 3.125 MG TAB PO SCH (09:43)
[2020-12-04] MEDS: LATANOPROST 0.005% OPHTH DROPS 2.5 ML BTL BOTH EYES SCH (09:45)
[2020-12-04] MEDS: SODIUM FERRIC GLUCONAT-SUCROSE 125 MG in SODIUM CHLORIDE 0.9% 100 ML IVPB SCH (09:46)
[2020-12-04 09:48] LABS: Glucose,Whole Blood 226 mg/dL (75-99)
[2020-12-04 10:05] VITALS: BP 136/66; RESP 18; TEMP 99.4
[2020-12-04 10:25] VITALS: BMI 51.2
--- NOTE | 2020-12-04 10:53 | P.PN ---
Subjective Progress Note Date: 12/04/20 Principal diagnosis: Obesity/hypoventilation syndrome, altered mental status This is a 65-year-old white female patient who is a resident at the [facility], patient has history of CVA with chronic right-sided paralysis, diabetes mellitus type 2, hypertension, morbid obesity, chronic kidney disease stage IV. Patient had been at the [facility] for the past several months, she is quite debilitated, and requires extensive assistance with all of her activities of daily living, she requires a Fany lift for transfers in and out of bed. She was being given a shower at the [facility], where she became unresponsive and started twitching. After sometime the patient did improve. Patient does have some tremors at her baseline. At the time patient did not have her usual supple mental oxygen at 2 L/m. There is no history of fever or chills, her appetite has been fair. Denies any prior history of head injury or seizure. She was transferred to [facility] for evaluation. Her lab work at [facility] showed evidence of acute on chronic kidney failure. Her admission labs upon transfer to the [facility] showed white blood cell count of 9.7, hemoglobin 9.2, BUN of 133, creatinine is 3.08, CO2 is 37, the rest of electrolytes were within normal limits, her serum glucose was elevated at 279, magnesium was 1.4, LFTs were within normal limits, urinalysis showed trace protein, 3+ glucose but no evidence of infection, COVID-19 PCR was negative. Chest x-ray showed low lung volumes, enlarged heart, and left basilar airspace opacity suggestive of small pleural effusion with adjacent atelectasis. Neurology consultation was obtained regarding possibility of seizures, and EEG was abnormal related to background slowing of moderate degree, suggestive of generalized cerebral dysfunction secondary to toxic metabolic encephalopathy or due to diffuse structural brain abnormality. Carotid Dopplers were obtained showing no significant flow-limiting stenosis within the carotid vessels. Patient is awake and alert, her verbal responses are slow, but are appropriate to content. She gave some limited history, she knew where she resided and she knew how long she had been there, she denies wearing a CPAP or BiPAP device at the alf, no prior history of obstructive sleep apnea. She does wear oxygen on a regular basis at 2 L. Appears to be in no acute distress, denies any chest pain, denies any cough. We're consulted in regards to possibility of obstructive sleep apnea, hypoventilation syndrome. The patient is seen today 12/01/2020 in follow-up on the selective care unit. She is currently awake and alert. She is resting fairly comfortably in bed. She is maintaining O2 saturations in the 90s on 2 L/m per nasal cannula. She's been afebrile. Hemodynamically stable. Blood glucose 308. ABGs were unable to be obtained. She is continued on bronchodilators. Anticoagulated with Eliquis. Progress note dated 12/03/2020. This is a 65-year-old female with a history of pickwickian syndrome. She is a resident at the [facility]. She has a prior history of CVA, right-sided paralysis, morbid obesity, diabetes mellitus, type II, essential hypertension, and stage IV chronic kidney disease. Currently, the patient is a DO NOT RESUSCITATE. She's currently on 2 L nasal cannula. We recommend BiPAP at nighttime with settings of IPAP 12, EPAP 6. Currently, the patient is resting comfortably without any complaints at this time. She is quite debilitated, and bed ridden. Laboratory data from today includes a sodium 140, potassium 4.4, chlorides 104, CO2 32, anion gap 4, BUN 87, and creatinine 2.12. On 12/04/2020 patient seen in follow-up on selective care unit, she is awake and alert, she is 2 L of oxygen pulse ox 97%, afebrile, she is alert and oriented 3, answering appropriately although her verbal responses are slow related to previous history of CVA. Did not wear BiPAP support last night. Lung sounds are clear, diminished with mild crackles at the bases, no cough, no chest discomfort. No fever or chills. Objective - Vital Signs Vital signs: Vital Signs Temp 99.4 F 12/04/20 09:40 Pulse 70 12/04/20 09:40 Resp 18 12/04/20 09:40 BP 136/66 12/04/20 09:40 Pulse Ox 97 12/04/20 09:40 Intake & Output 12/03/20 12/04/20 12/04/20 18:59 06:59 18:59 Intake Total 1540 Output Total 700 400 Balance 840 -400 Weight 135.5 kg 135.5 kg Intake: Intake, IV Titration 100 Amount Sodium Ferric Gluconat- 100 Sucrose 125 mg In Sodium Chloride 0.9% 100 ml @ 100 mls/hr IVPB DAILY [facility] Rx#:[id number] Oral 1440 Output: Urine 700 400 Other: Voiding Method Diaper Diaper Diaper External Catheter External Catheter External Catheter - Exam GENERAL EXAM: Alert, very pleasant, 65-year-old white female, on 2 L of oxygen, with a pulse ox of 97% comfortable in no apparent distress. Patient is morbidly obese, she has right-sided hemiparesis related to previous history of stroke, and chronic contracture of her right arm and hand. Speech is slow, but appropriate, and patient is oriented 3 HEAD: Normocephalic/atraumatic. EYES: Normal reaction of pupils, equal size. Conjunctiva pink, sclera white. NOSE: Clear with pink turbinates. THROAT: No erythema or exudates. NECK: No masses, no JVD, no thyroid enlargement, no adenopathy. CHEST: No chest wall deformity. Symmetrical expansion. LUNGS: Equal air entry with no crackles, wheeze, rhonchi or dullness. CVS: Regular rate and rhythm, normal S1 and S2, no gallops, no murmurs, no rubs ABDOMEN: Soft, nontender. No hepatosplenomegaly, normal bowel sounds, no guarding or rigidity. EXTREMITIES: No clubbing, no edema, no cyanosis, 2+ pulses and upper and lower extremities. MUSCULOSKELETAL: Patient has chronic right-sided hemiparesis, with chronic contractures of right hand, right arm related to previous history of stroke. Patient is bedbound on a regular basis, requires a Fany lift for transfers SPINE: No scoliosis or deformity SKIN: No rashes CENTRAL NERVOUS SYSTEM: Alert and oriented -3. Chronic right-sided hemiparesis - Labs CBC & Chem 7: 11/29/20 06:09 12/03/20 11:20 Labs: Abnormal Lab Results - Last 24 Hours (Table) 12/03/20 12/03/20 12/03/20 Range/Units 11:20 11:46 16:43 Carbon Dioxide 32 H (22-30) mmol/L BUN 87 H (7-17) mg/dL Creatinine 2.12 H (0.52-1.04) mg/dL Glucose 180 H (74-99) mg/dL POC Glucose (mg/dL) 203 H 246 H (75-99) mg/dL 12/03/20 12/04/20 12/04/20 Range/Units 20:25 06:11 09:46 Carbon Dioxide (22-30) mmol/L BUN (7-17) mg/dL Creatinine (0.52-1.04) mg/dL Glucose (74-99) mg/dL POC Glucose (mg/dL) 258 H 129 H 226 H (75-99) mg/dL Assessment and Plan Plan: Assessment: #1. Rule out new onset seizure with the episode of decreased responsiveness, nephrology is following #2. Altered mental status, rule out possibility of obesity hypoventilation syndrome, obstructive sleep apnea #3. Chronic hypoxic respiratory failure possibly related to morbid obesity, and obstructive sleep apnea and history of congestive heart failure with diastolic dysfunction, wears 2 L of oxygen on a regular basis #4. Morbid obesity with BMI of 49.2 kg/m #5. Gait dysfunction, general medical debility, patient requires a lift for transfers #6. History of CVA with right-sided paralysis #7. Diabetes mellitus type 2 #8. Hypertension #9. Coronary artery disease #10. History of congestive heart failure with diastolic dysfunction #11. Previous history of pulmonary embolism and DVT, patient is on Eliquis for chronic anti-coagulation #12. Anxiety, depression #13. Non smoker Plan: We will unable to complete a blood gas Nevertheless patient's physical features, lab analysis, and symptoms suggest presence of underlying obstructive sleep apnea, and obesity hypoventilation syndrome We recommend BiPAP support at 12 and 6 and FiO2 of 28% at the ECF and the patient resides at bedtime and as needed during the day She can also be placed on maintenance Diamox 250 mg once daily for Provera 10 mg 3 times daily by mouth to stimulate patient's respiratory drive and prevent hypercapnia We suggest a Diamox 250 mg once daily Otherwise stable for discharge back to the F once cleared by medicine I performed a history & physical examination of the patient and discussed their management with my nurse practitioner, Audrey Tran. I reviewed the nurse practitioner's note and agree with the documented findings and plan of care. Lung sounds are positive for diminished breath sounds. The findings and the impression was discussed with the patient. I attest to the documentation by the nurse practitioner. Time with Patient: Less than 30
[2020-12-04 10:58] VITALS: PULSE 72
--- NOTE | 2020-12-04 11:30 | P.PN ---
Subjective Patient is seen in follow-up for acute kidney injury. Renal function improving. Currently receiving a breathing treatment. Good urine output. Vital signs are stable. General: The patient appeared well nourished and normally developed. HEENT: Head exam is unremarkable. Neck is without jugular venous distension. LUNGS: Breath sounds decreased. HEART: Rate and Rhythm are regular. ABDOMEN: Soft, obese. EXTREMITITES: No edema. Objective - Vital Signs Vital signs: Vital Signs Temp 99.4 F 12/04/20 09:40 Pulse 72 12/04/20 11:06 Resp 18 12/04/20 09:40 BP 136/66 12/04/20 09:40 Pulse Ox 97 12/04/20 09:40 Intake & Output 12/03/20 12/04/20 12/04/20 18:59 06:59 18:59 Intake Total 1540 Output Total 700 400 Balance 840 -400 Weight 135.5 kg 135.5 kg Intake: Intake, IV Titration 100 Amount Sodium Ferric Gluconat- 100 Sucrose 125 mg In Sodium Chloride 0.9% 100 ml @ 100 mls/hr IVPB DAILY [facility] Rx#:[id number] Oral 1440 Output: Urine 700 400 Other: Voiding Method Diaper Diaper Diaper External Catheter External Catheter External Catheter - Labs CBC & Chem 7: 11/29/20 06:09 12/03/20 11:20 Labs: Abnormal Lab Results - Last 24 Hours (Table) 12/03/20 12/03/20 12/03/20 Range/Units 11:20 11:46 16:43 Carbon Dioxide 32 H (22-30) mmol/L BUN 87 H (7-17) mg/dL Creatinine 2.12 H (0.52-1.04) mg/dL Glucose 180 H (74-99) mg/dL POC Glucose (mg/dL) 203 H 246 H (75-99) mg/dL 12/03/20 12/04/20 12/04/20 Range/Units 20:25 06:11 09:46 Carbon Dioxide (22-30) mmol/L BUN (7-17) mg/dL Creatinine (0.52-1.04) mg/dL Glucose (74-99) mg/dL POC Glucose (mg/dL) 258 H 129 H 226 H (75-99) mg/dL Assessment and Plan Plan: Assessment: 1. Acute kidney injury mostly prerenal from diuresis, improving with IV hydration. Creatinine 2.12 today. UA fairly benign. 2. Altered mental status. Possibly from obesity hypoventilation syndrome. 3. Diabetes mellitus. 4. Chronic kidney disease stage IV with baseline creatinine near 2 from July 2020. Etiology is nephrosclerosis and diabetic kidney disease. Plan: Encourage oral intake. Quantify proteinuria outpatient. Avoid nephrotoxins. Follow-up outpatient in 1 week.
[2020-12-04 12:09] LABS: Glucose,Whole Blood 201 mg/dL (75-99)
--- NOTE | 2020-12-04 12:59 | P.DS ---
Providers Date of admission: 11/28/20 18:47 Expected date of discharge: 12/04/20 Attending physician: Gustavo Guevara Consults: 11/28/20 18:47 Consult Physician Urgent Consulting Provider: Kaykay Lowe Consult Reason/Comments: Possible new onset seizure, episode of decreased responsiveness Do you want consulting provider notified?: Yes 11/28/20 18:48 Consult Physician Urgent Consulting Provider: Flori Knutson Consult Reason/Comments: arf Do you want consulting provider notified?: Yes 11/29/20 17:06 Consult Physician Routine Consulting Provider: Meliton Workman Consult Reason/Comments: Obesity hypoventilation syndrome Do you want consulting provider notified?: Yes Primary care physician: Mina Lopez [facility] Course: Chief Complaint: Possible seizure History of presenting complaint: This is a 65-year-old patient who follows with Dr. Mina Lopez. Patient is a resident at [facility]. Chronic stable medical conditions include coronary artery dis ease, right-sided weakness from prior stroke, diabetes mellitus, GERD, hypertension, chronic medical debility at her baseline uses a high left, morbid obesity, anxiety depression, patient has known chronic kidney disease stage IV. Patient was being given a shower and then noticed that patient became unresponsive status stating. Started twitching. After sometime the patient did improve. Patient at baseline has noted to be having some tremors. Patient was found to have an elevated BUN/creatinine of 141 and 3.6. Patient is transferred here for further workup. Denies any fever and chills. Appetite otherwise fair. Denies any history of head injury or any prior history of seizure. Admitted with acute kidney injury possibly ATN. Started IV fluids. Metabolic encephalopathy from renal failure. Also new onset seizures. Patient was previously on Keppra few years ago following a stroke. Then discontinued. Started on Keppra. EEG did not show any seizure activity showed some metabolic slowing down. Sensorium has been slowly improving as his renal function is improving. Today: Sensorium better. Answering simple questions. Oral intake fair. Creatinine is quite back to her baseline. Discussed with the patient's sister. Understands overall prognosis guarded. Consultation: Nephrology Past medical history to include: Chronic kidney disease stage IV from nephrosclerosis, coronary artery disease, right-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 Currently a resident at [facility]. Nonambulatory. Family history: Reviewed, noncontributory to presentation Physical examination: VITAL SIGNS: 99.4, 70, 18, 1 6 x 66, 97% on 2 L GENERAL: Laying in bed, awake EYES: Pupils equal. Conjunctiva normal. HEENT: External appearance of nose and ears normal, oral cavity grossly normal. NECK: Short and thick, JVD unable to assess; masses not palpable. HEART: Distant heart sounds no edema. LUNGS: Respiratory rate increased, distant breath sounds. ABDOMEN: Soft, nontender, liver spleen not palpable, no masses palpable. PSYCH: Answering simple questions NEUROLOGICAL: Occasional tremors INVESTIGATIONS, reviewed in the clinical context: December 03: Potassium 4.4 creatinine 2.12. Accu-Cheks 203 and 246 December 02: Potassium 4 bun 95 creatinine 2.4 December 01: Potassium 3.9 bun 104 creatinine 2.06 November 30: Potassium 3.7 bicarb 35 bun 118 creatinine 2.86 Accu-Cheks 243 EEG: No epileptiform activity. Evidence of encephalopathy. November 29: WBC 9.7 hemoglobin 9.2 platelets 210 potassium 3.9 bun 133 creatinine 3.08 [From [facility]] Sodium 143 potassium 3.8 BUN 4 and 41 and creatinine 3.6 albumin 3.9 calcium 9.2 vitamin B12 143 TSH 2.46 magnesia 1.3 phosphorus 5.3 WBC 8.8 hemoglobin 9.8 platelets 220 Assessment and plan: -New onset of seizures - prior stroke which can be a focus with the same. Aminata ent was on Keppra in the past. Then discontinued because no further seizures Started on Keppra after discussion with neurology -Acute metabolic encephalopathy from renal failure-improvement Follow clinically -Acute kidney injury , possibly prerenal, improvement Data Discontinued. Creatinine improved from 3.08-2.12 -Chronic kidney disease stage IV from nephrosclerosis. Baseline creatinine a round 2 Follow electrolytes -Coronary artery disease with prior history of stent Coreg -Right hemiparesis from prior stroke -Diabetes mellitus type 2, chronically on insulin-uncontrolled with hype rglycemia Increase Lantus at 86 units at night and 24 units of NovoLog with meals. Victoza is not available in the hospital -GERD Continue PPI -Hyperuricemia Continue allopurinol -Essential hypertension Continue Lopressor -Chronic medical debility at her baseline. Does use a higher lift -Morbid obesity BMI 49.4 Weight loss measures and follow-up with PCP -Anxiety depression otherwise specified Continue with Zoloft -Normocytic anemia of chronic kidney disease Follow H&H -Obesity hypoventilation syndrome likely with restrictive lung disease from the same Continue with Ventolin nebulizer -DO NOT RESUSCITATE -Sister Shelbie is DPOA Disposition: [facility] facility Plan - Discharge Summary Discharge Rx Participant: No New Discharge Prescriptions: New acetaZOLAMIDE [Diamox] 250 mg PO DAILY 30 Days #30 tablet levETIRAcetam [Keppra] 250 mg PO DAILY tab Folic Acid 1 mg PO DAILY tab Pregabalin [Lyrica] 50 mg PO BID cap Continue allopurinoL [Zyloprim] 200 mg PO DAILY Nitroglycerin Sl Tabs [Nitrostat] 0.4 mg SL Q5M PRN PRN Reason: Chest Pain Omeprazole 20 mg PO DAILY Latanoprost/Pf [Latanoprost 0.005% Eye Drop] 1 drop BOTH EYES DAILY Fluorometholone 0.1% Ophth Juanita [Fml] 1 drop RIGHT EYE DAILY Ondansetron HCl [Zofran] 4 mg PO Q6H PRN PRN Reason: Nausea bisacodyL [Bisacodyl] 10 mg RECTAL Q72H PRN PRN Reason: Constipation Sodium Chloride [Saline Mist] 1 spray EA NOSTRIL Q2H PRN PRN Reason: nasal dryness Sertraline HCl [Zoloft] 100 mg PO DAILY Melatonin 5 mg PO HS Dorzolamide/Timolol/Pf [Cosopt Pf 2%/0.5% Ophth Droperette] 1 drop BOTH EYES BID Bisacodyl 10 mg PO Q72H PRN PRN Reason: Constipation Atropine Ophth Soln 1% 5Ml [Isopto Atropine 1% 5Ml] 2 drops SUBLINGUAL Q2H PRN PRN Reason: excess secretions Apixaban [Eliquis] 2.5 mg PO BID Acetaminophen Tab [Tylenol] 650 mg PO Q6H Albuterol Nebulized [Ventolin Nebulized] 2.5 mg INHALATION RT-QID ml Epoetin Josh [Procrit] 20,000 units SQ Q14D Collagenase [Santyl] 1 applic TOPICAL DAILY Liquicel 30 ml PO BID Gentry 5mg Menthol Cough Lozenge 1 lozenge MM Q2H PRN PRN Reason: Cough carvediloL [Coreg] 3.125 mg PO BID Albuterol Nebulized [Ventolin Nebulized] 2.5 mg INHALATION RT-QID PRN PRN Reason: Wheezing Liraglutide [Victoza 3-Jose] 1.8 mg SQ DAILY Insulin Aspart [NovoLOG Flexpen] See Protocol SQ AC-TID Changed Insulin Glargine [Lantus] 86 unit SQ HS #0 Insulin Aspart [NovoLOG Flexpen] 24 units SQ AC-TID #0 Discontinued Magnesium Hydroxide [Milk of Magnesia] 2,400 mg PO Q48H PRN PRN Reason: Constipation Potassium Chloride 10 meq PO DAILY metOLazone [Zaroxolyn] 5 mg PO MOWEFR Loratadine 10 mg PO DAILY guaiFENesin [Diabetic Tussin Ex] 200 mg PO Q4H PRN PRN Reason: Cough Fluticasone Nasal [place] [Flonase Nasal [place]] 1 spr EA NOSTRIL DAILY Metoprolol Tartrate [Lopressor] 12.5 mg PO BID tab traMADol HCL 50 mg PO Q6H PRN #10 tab PRN Reason: Pain Pregabalin [Lyrica] 75 mg PO BID ALPRAZolam [Xanax] 0.25 mg PO DAILY Torsemide [Demadex] 20 mg PO BID Midodrine [ProAmatine] 5 mg PO TID Discharge Medication List allopurinoL [Zyloprim] 200 mg PO DAILY 07/24/17 [History] Fluorometholone 0.1% Ophth Juanita [Fml] 1 drop RIGHT EYE DAILY 08/30/18 [History] Latanoprost/Pf [Latanoprost 0.005% Eye Drop] 1 drop BOTH EYES DAILY 08/30/18 [History] Nitroglycerin Sl Tabs [Nitrostat] 0.4 mg SL Q5M PRN 08/30/18 [History] Omeprazole 20 mg PO DAILY 08/30/18 [History] Ondansetron HCl [Zofran] 4 mg PO Q6H PRN 08/30/18 [History] Acetaminophen Tab [Tylenol] 650 mg PO Q6H 08/06/20 [History] Apixaban [Eliquis] 2.5 mg PO BID 08/06/20 [History] Atropine Ophth Soln 1% 5Ml [Isopto Atropine 1% 5Ml] 2 drops SUBLINGUAL Q2H PRN 08/06/20 [History] Bisacodyl 10 mg PO Q72H PRN 08/06/20 [History] Dorzolamide/Timolol/Pf [Cosopt Pf 2%/0.5% Ophth Droperette] 1 drop BOTH EYES BID 08/06/20 [History] Melatonin 5 mg PO HS 08/06/20 [History] Sertraline HCl [Zoloft] 100 mg PO DAILY 08/06/20 [History] Sodium Chloride [Saline Mist] 1 spray EA NOSTRIL Q2H PRN 08/06/20 [History] bisacodyL [Bisacodyl] 10 mg RECTAL Q72H PRN 08/06/20 [History] Albuterol Nebulized [Ventolin Nebulized] 2.5 mg INHALATION RT-QID ml 08/14/20 [Rx] Albuterol Nebulized [Ventolin Nebulized] 2.5 mg INHALATION RT-QID PRN 11/28/20 [History] Collagenase [Santyl] 1 applic TOPICAL DAILY 11/28/20 [History] Epoetin Josh [Procrit] 20,000 units SQ Q14D 11/28/20 [History] Gentry 5mg Menthol Cough Lozenge 1 lozenge MM Q2H PRN 11/28/20 [History] Insulin Aspart [NovoLOG Flexpen] See Protocol SQ AC-TID 11/28/20 [History] Liquicel 30 ml PO BID 11/28/20 [History] Liraglutide [Victoza 3-Jose] 1.8 mg SQ DAILY 11/28/20 [History] carvediloL [Coreg] 3.125 mg PO BID 11/28/20 [History] Folic Acid 1 mg PO DAILY tab 12/04/20 [Rx] Insulin Aspart [NovoLOG Flexpen] 24 units SQ AC-TID #0 12/04/20 [Rx] Insulin Glargine [Lantus] 86 unit SQ HS #0 12/04/20 [Rx] Pregabalin [Lyrica] 50 mg PO BID cap 12/04/20 [Rx] acetaZOLAMIDE [Diamox] 250 mg PO DAILY 30 Days #30 tablet 12/04/20 [Rx] levETIRAcetam [Keppra] 250 mg PO DAILY tab 12/04/20 [Rx] Follow up Appointment(s)/Referral(s): Mina Lopez MD [Primary Care Provider] - 1-2 days Patient Instructions/Handouts: Seizure/Epilepsy Discharge Instructions & Follow-Up Activity/Diet/Wound Care/Special Instructions: Bi-Pap at bedtime and as needed during the day 12/, Fio2 28%
[2020-12-04 13:13] LABS: Calcium 8.9 mg/dL (8.4-10.2)
[2020-12-04 17:08] LABS: Glucose,Whole Blood 267 mg/dL (75-99)
== END 2020-12-04 18:50 | DRG 100 ==
LOC: EC 17:58 → 3SCARD 18:47
PROVIDERS: ADMIT Hospitalist; ATTEND Hospitalist
DX: R56.9 Unspecified convulsions (principal); G92 Toxic encephalopathy; J96.11 Chronic respiratory failure with hypoxia; N17.9 Acute kidney failure, unspecified; I13.0 Hypertensive heart and chronic kidney disease with heart failure and stage 1 through stage 4 chronic kidney disease, or unspecified chronic kidney disease; E87.3 Alkalosis; Z68.43 Body mass index [BMI] 50.0-59.9, adult; E66.2 Morbid (severe) obesity with alveolar hypoventilation; L97.912 Non-pressure chronic ulcer of unspecified part of right lower leg with fat layer exposed; I69.351 Hemiplegia and hemiparesis following cerebral infarction affecting right dominant side; I50.32 Chronic diastolic (congestive) heart failure; N18.4 Chronic kidney disease, stage 4 (severe); L89.312 Pressure ulcer of right buttock, stage 2; L89.322 Pressure ulcer of left buttock, stage 2; D63.1 Anemia in chronic kidney disease; L89.610 Pressure ulcer of right heel, unstageable; E11.22 Type 2 diabetes mellitus with diabetic chronic kidney disease; E11.621 Type 2 diabetes mellitus with foot ulcer; E11.65 Type 2 diabetes mellitus with hyperglycemia; Z79.4 Long term (current) use of insulin; Z66 Do not resuscitate; Z20.822 Contact with and (suspected) exposure to COVID-19; G93.89 Other specified disorders of brain; E83.42 Hypomagnesemia; K21.9 Gastro-esophageal reflux disease without esophagitis; E53.8 Deficiency of other specified B group vitamins; E61.1 Iron deficiency; G47.33 Obstructive sleep apnea (adult) (pediatric); T50.2X5A Adverse effect of carbonic-anhydrase inhibitors, benzothiadiazides and other diuretics, initial encounter; I69.320 Aphasia following cerebral infarction; I25.10 Atherosclerotic heart disease of native coronary artery without angina pectoris; E79.0 Hyperuricemia without signs of inflammatory arthritis and tophaceous disease; F32.9 Major depressive disorder, single episode, unspecified; F41.9 Anxiety disorder, unspecified; Z79.01 Long term (current) use of anticoagulants; Z79.899 Other long term (current) drug therapy; Z86.718 Personal history of other venous thrombosis and embolism; Z86.711 Personal history of pulmonary embolism; Z90.89 Acquired absence of other organs; Z95.5 Presence of coronary angioplasty implant and graft; Z74.01 Bed confinement status; Z98.890 Other specified postprocedural states; Z88.5 Allergy status to narcotic agent; Z88.0 Allergy status to penicillin; Z88.7 Allergy status to serum and vaccine; Z88.8 Allergy status to other drugs, medicaments and biological substances; Z91.041 Radiographic dye allergy status
CPT/HCPCS: 71045; 80048; 80053; 81003; 82553; 83540; 83550; 83735; 85025; 87635; 93880; 94640; 94760; 95816; 99285

== ENCOUNTER → 2021-04-09 | Outpatient (CLI) | payer MEDICARE, OTHER ==
--- NOTE | 2021-04-09 12:24 | MR ---
MRI right foot with and without contrast HISTORY: Osteomyelitis Multiplanar multisequence imaging obtained through the right foot. Postcontrast images obtained follo wing 12 cc Gadavist IV. There is no additional studies available for correlation. T1-weighted images show some intermediate signal within the posterior calcaneus, increased signal in inversion recovery at the same level. There is overlying tissue breakdown at this level, loss of tiss ues accompanied with abnormal increased signal on inversion recovery, low signal on T1-weighted image s. Following contrast administration this area enhances both within the soft tissues and at the darnell n of the posterior calcaneus. The plantar aponeurosis, Achilles tendon are intact. Some mild increased signal present within the Ac hilles tendon towards the level of its insertion. Extensive subcutaneous edema changes are present ov er the dorsum of the foot but also the plantar aspect. Flexor and extensor tendons, Proteus longus an d brevis tendons are intact. There are some osteophytic changes at the intertarsal joints, probable r eactive marrow signal changes within the tarsal bones. Sinus Tarsi thought to be within normal limits . impression: Findings are consistent with cellulitis as well as osteomyelitis at the posterior aspect of the calcaneus of the right foot.
== END | disposition home or self-care (01) ==
LOC: RADMRIMAIN 08:56
PROVIDERS: ATTEND General Practice
DX: M86.8X7 Other osteomyelitis, ankle and foot (principal)
CPT/HCPCS: 73720; A9585

== ENCOUNTER 2021-04-15 17:25 | Inpatient (IN) | payer MEDICARE, OTHER ==
[2021-04-15 19:20] LABS: Anisocytosis Slight; Basophils # (A) 0.1 k/uL (0-0.2); Basophils % (A) 0 %; Eosinophils # (A) 0.3 k/uL (0-0.7); Eosinophils % (A) 2 %; HCT 33.5 % (34.0-46.0); HGB 9.7 gm/dL (11.4-16.0); Hypochromasia Moderate; Lymphocytes # (A) 1.3 k/uL (1.0-4.8); Lymphocytes % (A) 8 %; MCH 28.3 pg (25.0-35.0); MCV 97.9 fL (80.0-100.0); Macrocytosis Slight; Monocytes # (A) 0.8 k/uL (0-1.0); Monocytes % (A) 5 %; Neutrophils # (A) 14.2 k/uL (1.3-7.7); Neutrophils % (A) 84 %; Platelet Count 194 k/uL (150-450); RBC 3.42 m/uL (3.80-5.40); RDW 17.8 % (11.5-15.5); WBC 16.9 k/uL (3.8-10.6)
[2021-04-15 19:24] LABS: Albumin 2.5 g/dL (3.5-5.0); Calcium 8.4 mg/dL (8.4-10.2); Potassium 5.2 mmol/L (3.5-5.1); Total Bilirubin 0.8 mg/dL (0.2-1.3); Total Protein 5.2 g/dL (6.3-8.2)
[2021-04-15 19:35] LABS: Appearance,Urine Cloudy (Clear); Bacteria,Urine Occasional /hpf; Bilirubin,Urine Negative (Negative); Blood,Urine Trace (Negative); Color,Urine Yellow; Glucose,Urine (UA) Negative (Negative); Hyaline Casts,Urine 1 /lpf (0-2); Ketones,Urine Negative (Negative); Leukocyte Esterase,Urine Large (Negative); Mucus,Urine Rare /hpf; Nitrite,Urine Negative (Negative); PH, Urine 7.5 (5.0-8.0); Protein,Urine 2+ (Negative); RBC,Urine 2 /hpf (0-5); Specific Gravity,Urine 1.015 (1.001-1.035); Urobilinogen,Urine <2.0 mg/dL (<2.0); WBC,Urine 76 /hpf (0-5)
[2021-04-15] MEDS ORDERED: cefTRIAXone IN SWFI 1,000 MG/10 ML SYRINGE IVP STA (20:04)
[2021-04-15] MEDS ORDERED: NALOXONE 0.4 MG/ML 1 ML VIAL IV PRN (20:44)
--- NOTE | 2021-04-15 20:44 | ED ---
General Adult HPI - General Chief complaint: Wound/Laceration Stated complaint: Wounds on legs and feet Source: patient, EMS Mode of arrival: EMS Limitations: physical limitation - History of Present Illness Initial comments: Patient is a 65 year old female with past history of stroke and right-sided weakness who presents to [facility] from her extended care facility. P atient was having increased lethargy and fever. At their facility patient underwent laboratory studies and a chest x-ray. She was found have a white count of 17.6. Hemoglobin 9.4. Creatinine was 3.3. CMP greater than 270 and procalcitonin 1.9. She had an MRI done at our facility on the which was positive for osteomyelitis of the right heel. Patient did not appear to be on any antibiotics. At [facility] she was started on vancomycin. They requested transfer for infectious disease consult. Patient appears fatigued however able to answer most questions. Denies being any pain. She has a history of chronic kidney disease however kidney function was found to be worse today. She sees Dr. Knutson. The HPI is limited as the patient cannot provide much history - Related Data Home Medications Medication Instructions Recorded Confirmed allopurinoL [Zyloprim] 200 mg PO DAILY@0700 07/24/17 04/15/21 Fluorometholone 0.1% Ophth Juanita 1 drop RIGHT EYE DAILY@1200 08/30/18 04/15/21 [Fml] Latanoprost/Pf [Latanoprost 0.005% 1 drop BOTH EYES DAILY@199908/30/18 04/15/21 Eye Drop] Nitroglycerin Sl Tabs [Nitrostat] 0.4 mg SL Q5M PRN 08/30/18 04/15/21 Omeprazole 20 mg PO DAILY@0700 08/30/18 04/15/21 Ondansetron HCl [Zofran] 4 mg PO Q6H PRN 08/30/18 04/15/21 Acetaminophen Tab [Tylenol] 650 mg PO QID@01,07,13,19 08/06/20 04/15/21 Apixaban [Eliquis] 2.5 mg PO BID@0700,1700 08/06/20 04/15/21 Atropine Ophth Soln 1% 5Ml [Isopto 2 drops SUBLINGUAL Q2H PRN 08/06/20 04/15/21 Atropine 1% 5Ml] Bisacodyl 10 mg PO Q72H PRN 08/06/20 04/15/21 Dorzolamide/Timolol/Pf [Cosopt Pf 1 drop BOTH EYES BID@0700,209908/06/20 2%/0.5% Ophth Droperette] Melatonin 5 mg PO HS@209908/06/20 04/15/21 Sertraline HCl [Zoloft] 100 mg PO DAILY@0700 08/06/20 04/15/21 Sodium Chloride [Saline Mist] 1 spray EA NOSTRIL Q2H PRN 08/06/20 04/15/21 bisacodyL 10 mg RECTAL Q72H PRN 08/06/20 04/15/21 Albuterol Nebulized [Ventolin 2.5 mg INHALATION RT-QID PRN 11/28/20 04/15/21 Nebulized] Epoetin Josh [Procrit] 20,000 units SQ Q7D 11/28/20 04/15/21 Liquicel 30 ml PO BID@0700,1700 11/28/20 04/15/21 Liraglutide [Victoza 3-Jose] 1.8 mg SQ DAILY@1700 11/28/20 04/15/21 carvediloL [Coreg] 3.125 mg PO BID@0700,1700 11/28/20 04/15/21 Albuterol Nebulized [Ventolin 2.5 mg INHALATION 04/15/21 04/15/21 Nebulized] RT-QID@,,,19 Atorvastatin [Lipitor] 20 mg PO HS@209904/15/21 04/15/21 Ergocalciferol [Vitamin D2 (1250 1,250 mcg PO Q14D@1700 04/15/21 04/15/21 Mcg = 06541 Iu)] Folic Acid 1 mg PO DAILY@0700 04/15/21 04/15/21 Insulin Aspart [NovoLOG] 10 unit SQ TID-W/MEALS@,,04/15/21 04/15/21 Insulin Aspart [NovoLOG] See Protocol SQ AC-TID@,12,04/15/21 04/15/21 Insulin Glargine [Lantus Vial] 50 unit SQ BID@0700,2100 04/15/21 04/15/21 Lidocaine [Aspercreme Patch] 1 patch TOPICAL DAILY@1600 04/15/21 04/15/21 Loratadine [Claritin] 10 mg PO DAILY@0700 04/15/21 04/15/21 Magnesium Hydroxide [Milk of 7,200 mg PO Q24H PRN 04/15/21 04/15/21 Magnesia Concentrate] Magnesium Oxide [Mag-Ox] 250 mg PO DAILY@1700 04/15/21 04/15/21 Pregabalin [Lyrica] 50 mg PO BID@0700,2100 04/15/21 04/15/21 Torsemide [Demadex] 20 mg PO DAILY@0900 04/15/21 04/15/21 levETIRAcetam [Keppra] 250 mg PO DAILY@1700 04/15/21 04/15/21 traMADol HCL [Ultram] 50 mg PO Q6H PRN 04/15/21 04/15/21 Allergies Allergy/AdvReac Type Severity Reaction Status Date / Time ceresin [From Eucerin] Allergy Unknown Verified 04/15/21 20:19 emollient combination no.33 Allergy Unknown Verified 04/15/21 20:19 [From Eucerin] Iodinated Contrast Media Allergy Rash/Hives Verified 04/15/21 20:19 isopropyl myristate Allergy Unknown Verified 04/15/21 20:19 [From Eucerin] lanolin alcohols Allergy Unknown Verified 04/15/21 20:19 [From Eucerin] mineral oil [From Eucerin] Allergy Unknown Verified 04/15/21 20:19 Penicillins Allergy Rash/Hives Verified 04/15/21 20:19 petrolatum,white Allergy Unknown Verified 04/15/21 20:19 [From Eucerin] soap [From Eucerin] Allergy Unknown Verified 04/15/21 20:19 tuberculin,PPD,multi-puncture Allergy Unknown Verified 04/15/21 20:19 warfarin Allergy Unknown Verified 04/15/21 20:19 water [From Eucerin] Allergy Unknown Verified 04/15/21 20:19 codeine AdvReac Itching Verified 04/15/21 20:19 muscle rub Allergy Unknown Uncoded 04/15/21 20:19 Review of Systems ROS Statement: Those systems with pertinent positive or pertinent negative responses have been documented in the HPI. ROS Other: All systems not noted in ROS Statement are negative. Past Medical History Past Medical History: Coronary Artery Disease (CAD), Heart Failure, CVA/TIA, Diabetes Mellitus, Deep Vein Thrombosis (DVT), GERD/Reflux, Hypertension, Pulmonary Embolus (PE), Renal Disease Additional Past Medical History / Comment(s): tremmors, right sided weakness from CVA. Immobile uses hiral lift at [facility]. History of Any Multi-Drug Resistant Organisms: None Reported Past Surgical History: Tonsillectomy Additional Past Surgical History / Comment(s): G tube, pressure pump right eye Past Anesthesia/Blood Transfusion Reactions: No Reported Reaction Past Psychological History: Anxiety, Depression Smoking Status: Never smoker Past Alcohol Use History: None Reported Past Drug Use History: None Reported - Past Family History Father History Unknown: Yes Family Medical History: No Reported History, Unable to Obtain Mother History Unknown: Yes Family Medical History: No Reported History, Unable to Obtain General Exam Limitations: physical limitation Course Vital Signs 04/15/21 04/15/21 17:45 21:44 Temperature 98.8 F 99.5 F Pulse Rate 90 91 Respiratory 19 18 Rate Blood Pressure 113/44 139/72 O2 Sat by Pulse 96 96 Oximetry Medical Decision Making - Medical Decision Making Upon arrival patient is placed in a trauma 1. I did review the patient's transfer packet. I did repeat laboratory studies. Vera is placed and the urine sample sent. Laboratory studies reviewed white count is 16.9. Creatinine 3.3. Patient does have elevated ALTs and alk phos. She does have large marcial kocyte esterase, occasional bacteria and few white blood cell clumps. She was given Vanco at the outside hospital. I did add on a dose of Rocephin. I did review the patient's MRI which demonstrated osteomyelitis. Patient will be admitted to [facility]. I will place Dr. Chester on consult for the osteomyelitis. She remained in stable condition awaiting a bed on the floor - Lab Data Result diagrams: 04/15/21 18:58 04/15/21 18:58 Lab Results 04/15/21 04/15/21 04/15/21 Range/Units 18:58 18:58 18:58 WBC 16.9 H (3.8-10.6) k/uL RBC 3.42 L (3.80-5.40) m/uL Hgb 9.7 L (11.4-16.0) gm/dL Hct 33.5 L (34.0-46.0) % MCV 97.9 (80.0-100.0) fL MCH 28.3 (25.0-35.0) pg MCHC 29.0 L (31.0-37.0) g/dL RDW 17.8 H (11.5-15.5) % Plt Count 194 (150-450) k/uL MPV 10.0 Neutrophils % 84 % Lymphocytes % 8 % Monocytes % 5 % Eosinophils % 2 % Basophils % 0 % Neutrophils # 14.2 H (1.3-7.7) k/uL Lymphocytes # 1.3 (1.0-4.8) k/uL Monocytes # 0.8 (0-1.0) k/uL Eosinophils # 0.3 (0-0.7) k/uL Basophils # 0.1 (0-0.2) k/uL Hypochromasia Moderate Anisocytosis Slight Macrocytosis Slight Sodium 137 (137-145) mmol/L Potassium 5.2 H (3.5-5.1) mmol/L Chloride 99 (98-107) mmol/L Carbon Dioxide 29 (22-30) mmol/L Anion Gap 9 mmol/L BUN 95 H (7-17) mg/dL Creatinine 3.31 H (0.52-1.04) mg/dL Est GFR (CKD-EPI)AfAm 16 (>60 ml/min/1.73 sqM) Est GFR (CKD-EPI)NonAf 14 (>60 ml/min/1.73 sqM) Glucose 117 H (74-99) mg/dL Plasma Lactic Acid Ho (0.7-2.0) mmol/L Calcium 8.4 (8.4-10.2) mg/dL Total Bilirubin 0.8 (0.2-1.3) mg/dL AST 54 H (14-36) U/L ALT 123 H (4-34) U/L Alkaline Phosphatase 260 H (38-126) U/L Total Protein 5.2 L (6.3-8.2) g/dL Albumin 2.5 L (3.5-5.0) g/dL Urine Color Yellow Urine Appearance Cloudy H (Clear) Urine pH 7.5 (5.0-8.0) Ur Specific Hayden 1.015 (1.001-1.035) Urine Protein 2+ H (Negative) Urine Glucose (UA) Negative (Negative) Urine Ketones Negative (Negative) Urine Blood Trace H (Negative) Urine Nitrite Negative (Negative) Urine Bilirubin Negative (Negative) Urine Urobilinogen <2.0 (<2.0) mg/dL Ur Leukocyte Esterase Large H (Negative) Urine RBC 2 (0-5) /hpf Urine WBC 76 H (0-5) /hpf Urine WBC Clumps Few H (None) /hpf Urine Bacteria Occasional H (None) /hpf Hyaline Casts 1 (0-2) /lpf Urine Mucus Rare H (None) /hpf 04/15/21 Range/Units 18:58 WBC (3.8-10.6) k/uL RBC (3.80-5.40) m/uL Hgb (11.4-16.0) gm/dL Hct (34.0-46.0) % MCV (80.0-100.0) fL MCH (25.0-35.0) pg MCHC (31.0-37.0) g/dL RDW (11.5-15.5) % Plt Count (150-450) k/uL MPV Neutrophils % % Lymphocytes % % Monocytes % % Eosinophils % % Basophils % % Neutrophils # (1.3-7.7) k/uL Lymphocytes # (1.0-4.8) k/uL Monocytes # (0-1.0) k/uL Eosinophils # (0-0.7) k/uL Basophils # (0-0.2) k/uL Hypochromasia Anisocytosis Macrocytosis Sodium (137-145) mmol/L Potassium (3.5-5.1) mmol/L Chloride (98-107) mmol/L Carbon Dioxide (22-30) mmol/L Anion Gap mmol/L BUN (7-17) mg/dL Creatinine (0.52-1.04) mg/dL Est GFR (CKD-EPI)AfAm (>60 ml/min/1.73 sqM) Est GFR (CKD-EPI)NonAf (>60 ml/min/1.73 sqM) Glucose (74-99) mg/dL Plasma Lactic Acid Ho 0.9 (0.7-2.0) mmol/L Calcium (8.4-10.2) mg/dL Total Bilirubin (0.2-1.3) mg/dL AST (14-36) U/L ALT (4-34) U/L Alkaline Phosphatase (38-126) U/L Total Protein (6.3-8.2) g/dL Albumin (3.5-5.0) g/dL Urine Color Urine Appearance (Clear) Urine pH (5.0-8.0) Ur Specific Hayden (1.001-1.035) Urine Protein (Negative) Urine Glucose (UA) (Negative) Urine Ketones (Negative) Urine Blood (Negative) Urine Nitrite (Negative) Urine Bilirubin (Negative) Urine Urobilinogen (<2.0) mg/dL Ur Leukocyte Esterase (Negative) Urine RBC (0-5) /hpf Urine WBC (0-5) /hpf Urine WBC Clumps (None) /hpf Urine Bacteria (None) /hpf Hyaline Casts (0-2) /lpf Urine Mucus (None) /hpf Disposition Clinical Impression: Sepsis, Osteomyelitis, Leukocytosis, UTI (urinary tract infection) Disposition: ADMITTED IP TO THIS [facility] Condition: Stable Is patient prescribed a controlled substance at d/c from ED?: No Decision to Admit Reason: Admit from EC Decision Date: 04/15/21 Decision Time: 20:44
[2021-04-15] MEDS ORDERED: IBUPROFEN 400 MG TAB PO PRN (20:49)
[2021-04-15] MEDS ORDERED: ATROPINE OPHTH SOLN 1% 5ML BTL SUBLINGUAL PRN (22:10)
[2021-04-15] MEDS ORDERED: MAGNESIUM HYDROXIDE 2,400 MG/10 ML CUP PO PRN (22:10)
[2021-04-15] MEDS ORDERED: bisacodyL 10 MG SUPP RECTAL PRN (22:10)
[2021-04-15] MEDS ORDERED: traMADol 50 MG TAB PO PRN (22:10)
[2021-04-15] MEDS ORDERED: bisacodyL 5 MG TABLET.DR PO PRN (22:10)
[2021-04-15] MEDS ORDERED: ALBUTEROL NEBULIZED 2.5 MG/3 ML INHALATION PRN (22:10)
[2021-04-15] MEDS ORDERED: VANCOMYCIN 1,500 MG in SODIUM CHLORIDE 0.9% 250 ML IVPB ONE (22:30)
[2021-04-16] MEDS ORDERED: ALBUTEROL NEBULIZED 2.5 MG/3 ML INHALATION SCH (01:00)
[2021-04-16 04:17] LABS: Anisocytosis Slight; Basophils % (A) 0 %; Eosinophils # (A) 0.1 k/uL (0-0.7); Eosinophils % (A) 1 %; HCT 32.7 % (34.0-46.0); HGB 9.5 gm/dL (11.4-16.0); Hypochromasia Marked; Lymphocytes % (A) 8 %; MCH 28.4 pg (25.0-35.0); MCHC 28.9 g/dL (31.0-37.0); MCV 98.3 fL (80.0-100.0); Macrocytosis Slight; Mean Platelet Volume 10.1; Monocytes # (A) 0.8 k/uL (0-1.0); Monocytes % (A) 6 %; Neutrophils # (A) 11.2 k/uL (1.3-7.7); Neutrophils % (A) 84 %; Platelet Count 171 k/uL (150-450); RBC 3.33 m/uL (3.80-5.40); RDW 17.2 % (11.5-15.5); WBC 13.3 k/uL (3.8-10.6)
[2021-04-16 04:41] LABS: Calcium 8.3 mg/dL (8.4-10.2); Potassium 5.2 mmol/L (3.5-5.1)
[2021-04-16] MEDS: SERTRALINE 100 MG TAB PO SCH (06:43)
[2021-04-16] MEDS: FOLIC ACID 1 MG TAB PO SCH (06:43)
[2021-04-16] MEDS: carvediloL 3.125 MG TAB PO SCH ×2 (06:43→17:45)
[2021-04-16] MEDS: LORATADINE 10 MG TAB PO SCH (06:43)
[2021-04-16] MEDS: PANTOPRAZOLE 40 MG TABLET PO SCH (06:44)
[2021-04-16] MEDS: allopurinoL 100 MG TAB PO SCH (06:44)
[2021-04-16] MEDS: APIXABAN 2.5 MG TABLET PO SCH ×2 (06:44→21:31)
[2021-04-16] MEDS ORDERED: LIQUICEL PO SCH (07:00)
[2021-04-16] MEDS: ALBUTEROL NEBULIZED 2.5 MG/3 ML INHALATION SCH ×4 (07:53→20:15)
[2021-04-16] MEDS: DORZOLAMIDE-TIMOLOL 2.23%/0.68 10ML BTL BOTH EYES SCH ×2 (08:41→21:32)
[2021-04-16] MEDS: ACETAMINOPHEN TAB 325 MG TAB PO PRN (08:47)
[2021-04-16] MEDS: PREGABALIN 50 MG CAP PO SCH ×2 (08:48→21:32)
[2021-04-16] MEDS ORDERED: VANCOMYCIN 1,500 MG in SODIUM CHLORIDE 0.9% 250 ML IVPB ONE (12:00)
[2021-04-16] MEDS: FLUOROMETHOLONE 0.1% OPHTH DROPS 5 ML BTL RIGHT EYE SCH (12:13)
[2021-04-16 15:36] VITALS: BMI 43.0
--- NOTE | 2021-04-16 16:18 | P.HPIM ---
History of Present Illness H&P Date: 04/16/21 Chief Complaint: Leg wounds 65 year old female with past history of stroke and right-sided weakness, CAD/CHF, diabetes mellitus, hypertension, PE/DVT, who presents to [facility] from her extended care facility. Patient was having increased lethargy and fever. At their facility patient underwent laboratory studies and a chest x-ray. She was found have a white count of 17.6. Hemoglobin 9.4. Creatinine was 3.3. CMP greater than 270 and procalcitonin 1.9. She had an MRI done at our facility on the which was positive for osteomyelitis of the right heel. Patient did not appear to be on any antibiotics. At [facility] she was started on vancomycin. They requested transfer for infectious disease consult. Patient appears fatigued however able to answer most questions. Denies being any pain. She has a history of chronic kidney disease however kidney function was found to be worse today. Workup in ED with blood work reveals a WBC of 16.9, hemoglobin of 9.7, hematocrit 33.5 and platelet count of 194, sodium 137, potassium 5.2, BUN/creatinine markedly elevated at 95/3.31; UA is positive; MRI done and reviewed in ED reveals osteomyelitis Review of Systems REVIEW OF SYSTEMS: CONSTITUTIONAL: No fever, no malaise, no fatigue. HEENT: No recent visual problems or hearing problems. Denied any sore throat. CARDIOVASCULAR: No chest pain, orthopnea, PND, no palpitations, no syncope. PULMONARY: No shortness of breath, no cough, no hemoptysis. GASTROINTESTINAL: No diarrhea, no nausea, no vomiting, no abdominal pain. NEUROLOGICAL: No headaches, no weakness, no numbness. HEMATOLOGICAL: Denies any bleeding or petechiae. GENITOURINARY: Denies any burning micturition, frequency, or urgency. MUSCULOSKELETAL/RHEUMATOLOGICAL: Denies any joint pain, swelling, or any muscle pain. ENDOCRINE: Denies any polyuria or polydipsia. The rest of the 14-point review of systems is negative. Past Medical History Past Medical History: Coronary Artery Disease (CAD), Heart Failure, CVA/TIA, Diabetes Mellitus, Deep Vein Thrombosis (DVT), GERD/Reflux, Hypertension, Pulmonary Embolus (PE), Renal Disease Additional Past Medical History / Comment(s): tremmors, right sided weakness from CVA. Immobile uses hiral lift at [facility]. History of Any Multi-Drug Resistant Organisms: None Reported Past Surgical History: Tonsillectomy Additional Past Surgical History / Comment(s): G tube, pressure pump right eye Past Anesthesia/Blood Transfusion Reactions: No Reported Reaction Past Psychological History: Anxiety, Depression Smoking Status: Never smoker Past Alcohol Use History: None Reported Past Drug Use History: None Reported - Past Family History Father History Unknown: Yes Family Medical History: No Reported History, Unable to Obtain Mother History Unknown: Yes Family Medical History: No Reported History, Unable to Obtain Medications and Allergies Home Medications Medication Instructions Recorded Confirmed Type allopurinoL [Zyloprim] 200 mg PO DAILY@0700 07/24/17 04/15/21 History Fluorometholone 0.1% Ophth Juanita 1 drop RIGHT EYE DAILY@1200 08/30/18 04/15/21 History [Fml] Latanoprost/Pf [Latanoprost 0.005% 1 drop BOTH EYES DAILY@199908/30/18 04/15/21 History Eye Drop] Nitroglycerin Sl Tabs [Nitrostat] 0.4 mg SL Q5M PRN 08/30/18 04/15/21 History Omeprazole 20 mg PO DAILY@0700 08/30/18 04/15/21 History Ondansetron HCl [Zofran] 4 mg PO Q6H PRN 08/30/18 04/15/21 History Acetaminophen Tab [Tylenol] 650 mg PO QID@01,07,13,19 08/06/20 04/15/21 History Apixaban [Eliquis] 2.5 mg PO BID@0700,1700 08/06/20 04/15/21 History Atropine Ophth Soln 1% 5Ml [Isopto 2 drops SUBLINGUAL Q2H PRN 08/06/20 04/15/21 History Atropine 1% 5Ml] Bisacodyl 10 mg PO Q72H PRN 08/06/20 04/15/21 History Dorzolamide/Timolol/Pf [Cosopt Pf 1 drop BOTH EYES BID@0700,2100 08/06/20 04/15/21 History 2%/0.5% Ophth Droperette] Melatonin 5 mg PO HS@209908/06/20 04/15/21 History Sertraline HCl [Zoloft] 100 mg PO DAILY@0700 08/06/20 04/15/21 History Sodium Chloride [Saline Mist] 1 spray EA NOSTRIL Q2H PRN 08/06/20 04/15/21 History bisacodyL 10 mg RECTAL Q72H PRN 08/06/20 04/15/21 History Albuterol Nebulized [Ventolin 2.5 mg INHALATION RT-QID PRN 11/28/20 04/15/21 History Nebulized] Epoetin Josh [Procrit] 20,000 units SQ Q7D 11/28/20 04/15/21 History Liquicel 30 ml PO BID@0700,1700 11/28/20 04/15/21 History Liraglutide [Victoza 3-Jose] 1.8 mg SQ DAILY@1700 11/28/20 04/15/21 History carvediloL [Coreg] 3.125 mg PO BID@0700,1700 11/28/20 04/15/21 History Albuterol Nebulized [Ventolin 2.5 mg INHALATION 04/15/21 04/15/21 History Nebulized] RT-QID@,,, Atorvastatin [Lipitor] 20 mg PO HS@2100 04/15/21 04/15/21 History Ergocalciferol [Vitamin D2 (1250 1,250 mcg PO Q14D@1700 04/15/21 04/15/21 History Mcg = 24851 Iu)] Folic Acid 1 mg PO DAILY@0700 04/15/21 04/15/21 History Insulin Aspart [NovoLOG] 10 unit SQ TID-W/MEALS@,,04/15/21 04/15/21 History Insulin Aspart [NovoLOG] See Protocol SQ AC-TID@,,04/15/21 04/15/21 History Insulin Glargine [Lantus Vial] 50 unit SQ BID@0700,2100 04/15/21 04/15/21 History Lidocaine [Aspercreme Patch] 1 patch TOPICAL DAILY@1600 04/15/21 04/15/21 History Loratadine [Claritin] 10 mg PO DAILY@0700 1804/15/21 History Magnesium Hydroxide [Milk of 7,200 mg PO Q24H PRN 04/15/21 04/15/21 History Magnesia Concentrate] Magnesium Oxide [Mag-Ox] 250 mg PO DAILY@1700 04/15/21 04/15/21 History Pregabalin [Lyrica] 50 mg PO BID@0700,2100 04/15/21 04/15/21 History Torsemide [Demadex] 20 mg PO DAILY@0900 04/15/21 04/15/21 History levETIRAcetam [Keppra] 250 mg PO DAILY@1700 04/15/21 04/15/21 History traMADol HCL [Ultram] 50 mg PO Q6H PRN 04/15/21 04/15/21 History Allergies Allergy/AdvReac Type Severity Reaction Status Date / Time ceresin [From Eucerin] Allergy Unknown Verified 04/15/21 20:19 emollient combination no.33 Allergy Unknown Verified 04/15/21 20:19 [From Eucerin] Iodinated Contrast Media Allergy Rash/Hives Verified 04/15/21 20:19 isopropyl myristate Allergy Unknown Verified 04/15/21 20:19 [From Eucerin] lanolin alcohols Allergy Unknown Verified 04/15/21 20:19 [From Eucerin] mineral oil [From Eucerin] Allergy Unknown Verified 04/15/21 20:19 Penicillins Allergy Rash/Hives Verified 04/15/21 20:19 petrolatum,white Allergy Unknown Verified 04/15/21 20:19 [From Eucerin] soap [From Eucerin] Allergy Unknown Verified 04/15/21 20:19 tuberculin,PPD,multi-puncture Allergy Unknown Verified 04/15/21 20:19 warfarin Allergy Unknown Verified 04/15/21 20:19 water [From Eucerin] Allergy Unknown Verified 04/15/21 20:19 codeine AdvReac Itching Verified 04/15/21 20:19 muscle rub Allergy Unknown Uncoded 04/15/21 20:19 Physical Exam Vitals: Vital Signs Temp Pulse Pulse Resp BP BP Pulse Ox 04/16/21 11:17 77 04/16/21 11:08 80 04/16/21 08:02 89 04/16/21 08:00 99.9 F H 91 18 121/62 94 L 04/16/21 07:53 90 93 L 04/16/21 06:57 99.7 F H 95 18 145/68 96 04/16/21 04:54 90 18 95/67 97 04/16/21 03:00 92 18 103/56 95 04/16/21 02:32 91 18 101/52 96 04/15/21 21:44 99.5 F 91 18 139/72 96 04/15/21 17:45 98.8 F 90 19 113/44 96 Intake and Output 04/15/21 04/16/21 04/16/21 22:59 06:59 14:59 Other: Weight 99.79 kg PHYSICAL EXAMINATION: GENERAL: The patient is alert and oriented x3, not in any acute distress. Well developed, well nourished. HEENT: Pupils are round and equally reacting to light. EOMI. No scleral icterus. No conjunctival pallor. Normocephalic, atraumatic. No pharyngeal erythema. No thyromegaly. CARDIOVASCULAR: S1 and S2 present. No murmurs, rubs, or gallops. PULMONARY: Chest is clear to auscultation, no wheezing or crackles. ABDOMEN: Soft, nontender, nondistended, normoactive bowel sounds. No palpable organomegaly. MUSCULOSKELETAL: No joint swelling or deformity. EXTREMITIES: No cyanosis, clubbing, or pedal edema. NEUROLOGICAL: Gross neurological examination did not reveal any focal deficits. SKIN: No rashes. Results CBC & Chem 7: 04/16/21 03:42 04/16/21 03:42 Labs: Abnormal Lab Results - Last 24 Hours (Table) 04/15/21 04/15/21 04/15/21 Range/Units 18:58 18:58 18:58 WBC 16.9 H (3.8-10.6) k/uL RBC 3.42 L (3.80-5.40) m/uL Hgb 9.7 L (11.4-16.0) gm/dL Hct 33.5 L (34.0-46.0) % MCHC 29.0 L (31.0-37.0) g/dL RDW 17.8 H (11.5-15.5) % Neutrophils # 14.2 H (1.3-7.7) k/uL Potassium 5.2 H (3.5-5.1) mmol/L BUN 95 H (7-17) mg/dL Creatinine 3.31 H (0.52-1.04) mg/dL Glucose 117 H (74-99) mg/dL Calcium (8.4-10.2) mg/dL AST 54 H (14-36) U/L ALT 123 H (4-34) U/L Alkaline Phosphatase 260 H (38-126) U/L Total Protein 5.2 L (6.3-8.2) g/dL Albumin 2.5 L (3.5-5.0) g/dL Urine Appearance Cloudy H (Clear) Urine Protein 2+ H (Negative) Urine Blood Trace H (Negative) Ur Leukocyte Esterase Large H (Negative) Urine WBC 76 H (0-5) /hpf Urine WBC Clumps Few H (None) /hpf Urine Bacteria Occasional H (None) /hpf Urine Mucus Rare H (None) /hpf 04/16/21 04/16/21 Range/Units 03:42 03:42 WBC 13.3 H (3.8-10.6) k/uL RBC 3.33 L (3.80-5.40) m/uL Hgb 9.5 L (11.4-16.0) gm/dL Hct 32.7 L (34.0-46.0) % MCHC 28.9 L (31.0-37.0) g/dL RDW 17.2 H (11.5-15.5) % Neutrophils # 11.2 H (1.3-7.7) k/uL Potassium 5.2 H (3.5-5.1) mmol/L BUN 99 H (7-17) mg/dL Creatinine 3.43 H (0.52-1.04) mg/dL Glucose 113 H (74-99) mg/dL Calcium 8.3 L (8.4-10.2) mg/dL AST (14-36) U/L ALT (4-34) U/L Alkaline Phosphatase (38-126) U/L Total Protein (6.3-8.2) g/dL Albumin (3.5-5.0) g/dL Urine Appearance (Clear) Urine Protein (Negative) Urine Blood (Negative) Ur Leukocyte Esterase (Negative) Urine WBC (0-5) /hpf Urine WBC Clumps (None) /hpf Urine Bacteria (None) /hpf Urine Mucus (None) /hpf Microbiology - Last 24 Hours (Table) 04/15/21 18:58 Urine Culture - Preliminary Urine,Voided Assessment and Plan Assessment: 1. Osteomyelitis right heel - MRI of the foot reveals osteomyelitis; patient has been placed on IV vancomycin; blood cultures and wound cultures are obtained and pending - Infectious disease is consulted for further recommendations on IV antibiotics and duration of treatment 2. Leukocytosis/sepsis; related to UTI/osteomyelitis - Patient has been placed on Rocephin 1 g IV daily and vancomycin - Blood cultures and urine cultures are obtained and pending; we will monitor CBC, CRP and for calcitonin 3. Profound UTI; patient received Rocephin 1 g IV daily; we will plan to continue current antibiotics at this time with further changes pending culture results 4. Acute on chronic kidney disease; slow IV fluid hydration with normal saline at a rate of 75 mL an hour; we will monitor strict BOLA's, daily weights, renal function and electrolytes; avoid nephrotoxin agents and hypotension 5. Hypertension; Coreg 3.125 mg twice a day 6. Diabetes mellitus controlled with insulin; continue with Lantus 50 units subcu twice a day; we will monitor Accu-Cheks before meals and at bedtime with insulin sliding scale 7. 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 CAD/CHF; stable on aspirin 81 mg daily, beta blockers Coreg 3.125 mg twice a day and statin therapy; hold off on diuretic therapy due to acute renal injury 9. Hyperlipidemia; Lipitor 20 mg by mouth daily at bedtime DVT prophylaxis; SCDs/systemic anticoagulation CODE STATUS; DO NOT RESUSCITATE
[2021-04-16 17:38] LABS: Glucose,Whole Blood 183 mg/dL (75-99)
[2021-04-16] MEDS: INSULIN ASPART (NovoLOG) 100 UNIT/ML VIAL SQ SCH (17:45)
[2021-04-16] MEDS: MAGNESIUM OXIDE 400 MG TAB PO SCH (17:45)
[2021-04-16 20:11] LABS: Glucose,Whole Blood 199 mg/dL (75-99)
[2021-04-16] MEDS: MELATONIN 5 MG TABLET PO SCH (21:31)
[2021-04-16] MEDS: levETIRAcetam 250 MG TAB PO SCH (21:31)
[2021-04-16] MEDS: LATANOPROST 0.005% OPHTH DROPS 2.5 ML BTL BOTH EYES SCH (21:32)
[2021-04-16] MEDS: INSULIN DETEMIR (LEVEMIR) 100 UNIT/ML SYR SQ SCH (21:32)
[2021-04-16] MEDS: ATORVASTATIN 20 MG TAB PO SCH (21:32)
[2021-04-16] MEDS: LIDOCAINE 5% PATCH TOPICAL SCH (21:39)
[2021-04-16] MEDS ORDERED: VANCOMYCIN IV PER PHARMACY 1 EACH MISC MISCELLANE PRN (22:09)
--- NOTE | 2021-04-16 22:32 | XR ---
EXAMINATION TYPE: XR chest 1V portable DATE OF EXAM: 04/16/2021 COMPARISON: 04/15/2021 HISTORY: Cough TECHNIQUE: FINDINGS: There is some infiltrate at the lateral left lung base. There is poor inspiration. Heart si ze is fairly normal. Thoracic aorta is atheromatous. There are chest leads. IMPRESSION: Poor inspiration similar to old exam. There is a new mild infiltrate lateral left lung ba se compared to yesterday. No obvious heart failure..
--- NOTE | 2021-04-16 22:33 | P.CONS ---
History of Present Illness - Reason for Consult Consult date: 04/16/21 osteomyelitis right foot Requesting physician: Nathalia Alba - Chief Complaint weakness x few days - History of Present Illness History of present illness : patient is a 65-year-old female in this patient who is a longterm resident patient did have history of CVA with right-sided weakness transferred from [facility] where the patient was sent for evaluation of increasing lethargy and fever patient was evaluated the facility with patient was noticed to have elevated procalcitonin elevated creatinine patient was started on vancomycin and subsequent has been transferred to this facility for further evaluation patient apparently recently did have a MRI of the right foot completed on 04/09/2021 which was read as cellulitis with osteomyelitis at the posterior aspect of the calcaneus of the right foot patient on presentation to this facility did have low-grade fever of 99.7 F, patient did have white count of 13.3 creatinine 3.43 velazquez PCR was negative patient did have positive UA and urine showing gram-negative bacilli patient has been start ed on Rocephin 1 g daily and vancomycin pharmacy to dose infectious disease was consulted for further management of antibiotic therapy most information has been obtained from review the chart and the patient herself evaluated good historian Review of system: Positive point has been mentioned in HPI complete review could not be obtained because of underlying mental status. Past medical history : Reviewed, documented below Past surgical history : Reviewed, documented below Social history: Reviewed, documented below Medications: Reviewed, as documented below EXAMINATION: Vital sigans= Reviewed and documented below GENERAL DESCRIPTION: Middle-aged female lying in bed, no distress. No tachypnea or accessory muscle of respiration use. HEENT: Shows Pallor , no scleral icterus. Oral mucous membrane is dry. NECK: Trachea central, no thyromegaly. LUNGS: Unlabored breathing. Decreased breath sound at the base. No wheeze or crackle. HEART: S1, S2, regular rate and rhythm. ABDOMEN: Soft, no tenderness , guarding or rigidity EXTREMITIES: No edema of feet. SKIN: No rash, no masses palpable. 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 with abnormal MRI that was done on 04/09/2021 the wound itself does not look infected with no swelling no redness or any foul-smelling drainage patient need further work-up including debridement of the wound deep cultures and inflammatory markers and antibiotic on the basis of those cultures 3-related urgency and high risk of nephrotoxicity from vancomycin Plan: 1-Rocephin 1 g daily to continue 2-discontinue vancomycin 3-obtain vascular surgeon evaluation for debridement of the wound and deep cultures that will require any further antibiotic therapy 4- we will also check a sed rate and a CRP We will follow on clinical condition and cultures to further adjust medication if needed Thank you for this consultation we will follow the patient along with you Past Medical History Past Medical History: Coronary Artery Disease (CAD), Heart Failure, CVA/TIA, Diabetes Mellitus, Deep Vein Thrombosis (DVT), GERD/Reflux, Hypertension, Pulmonary Embolus (PE), Renal Disease Additional Past Medical History / Comment(s): tremmors, right sided weakness from CVA. Immobile uses hiral lift at [facility]. History of Any Multi-Drug Resistant Organisms: None Reported Past Surgical History: Tonsillectomy Additional Past Surgical History / Comment(s): G tube, pressure pump right eye Past Anesthesia/Blood Transfusion Reactions: No Reported Reaction Past Psychological History: Anxiety, Depression Smoking Status: Never smoker Past Alcohol Use History: None Reported Past Drug Use History: None Reported - Past Family History Father History Unknown: Yes Family Medical History: No Reported History, Unable to Obtain Mother History Unknown: Yes Family Medical History: No Reported History, Unable to Obtain Medications and Allergies Home Medications Medication Instructions Recorded Confirmed Type allopurinoL [Zyloprim] 200 mg PO DAILY@0707/24/17 04/15/21 History Fluorometholone 0.1% Ophth Juanita 1 drop RIGHT EYE DAILY@119908/30/18 04/15/21 History [Fml] Latanoprost/Pf [Latanoprost 0.005% 1 drop BOTH EYES DAILY@199908/30/18 04/15/21 History Eye Drop] Nitroglycerin Sl Tabs [Nitrostat] 0.4 mg SL Q5M PRN 08/30/18 04/15/21 History Omeprazole 20 mg PO DAILY@0708/30/18 04/15/21 History Ondansetron HCl [Zofran] 4 mg PO Q6H PRN 08/30/18 04/15/21 History Acetaminophen Tab [Tylenol] 650 mg PO QID@,,,08/06/20 04/15/21 History Apixaban [Eliquis] 2.5 mg PO BID@0700,1700 08/06/20 04/15/21 History Atropine Ophth Soln 1% 5Ml [Isopto 2 drops SUBLINGUAL Q2H PRN 08/06/20 04/15/21 History Atropine 1% 5Ml] Bisacodyl 10 mg PO Q72H PRN 08/06/20 04/15/21 History Dorzolamide/Timolol/Pf [Cosopt Pf 1 drop BOTH EYES BID@0700,209908/06/20 04/15/21 History 2%/0.5% Ophth Droperette] Melatonin 5 mg PO HS@209908/06/20 04/15/21 History Sertraline HCl [Zoloft] 100 mg PO DAILY@0700 08/06/20 04/15/21 History Sodium Chloride [Saline Mist] 1 spray EA NOSTRIL Q2H PRN 08/06/20 04/15/21 History bisacodyL 10 mg RECTAL Q72H PRN 08/06/20 04/15/21 History Albuterol Nebulized [Ventolin 2.5 mg INHALATION RT-QID PRN 11/28/20 04/15/21 History Nebulized] Epoetin Josh [Procrit] 20,000 units SQ Q7D 11/28/20 04/15/21 History Liquicel 30 ml PO BID@0700,1700 11/28/20 04/15/21 History Liraglutide [Victoza 3-Jose] 1.8 mg SQ DAILY@0 11/28/20 04/15/21 History carvediloL [Coreg] 3.125 mg PO BID@0700,1700 11/28/20 04/15/21 History Albuterol Nebulized [Ventolin 2.5 mg INHALATION 04/15/21 04/15/21 History Nebulized] RT-QID@,,, Atorvastatin [Lipitor] 20 mg PO HS@209904/15/21 04/15/21 History Ergocalciferol [Vitamin D2 (1250 1,250 mcg PO Q14D@1700 04/15/21 04/15/21 History Mcg = 83623 Iu)] Folic Acid 1 mg PO DAILY@0700 04/15/21 04/15/21 History Insulin Aspart [NovoLOG] 10 unit SQ TID-W/MEALS@07,12,18 04/15/21 04/15/21 History Insulin Aspart [NovoLOG] See Protocol SQ AC-TID@,,04/15/21 04/15/21 History Insulin Glargine [Lantus Vial] 50 unit SQ BID@0700,2100 04/15/21 04/15/21 History Lidocaine [Aspercreme Patch] 1 patch TOPICAL DAILY@1600 04/15/21 04/15/21 History Loratadine [Claritin] 10 mg PO DAILY@0700 04/15/21 04/15/21 History Magnesium Hydroxide [Milk of 7,200 mg PO Q24H PRN 04/15/21 04/15/21 History Magnesia Concentrate] Magnesium Oxide [Mag-Ox] 250 mg PO DAILY@1700 04/15/21 04/15/21 History Pregabalin [Lyrica] 50 mg PO BID@0700,2100 04/15/21 04/15/21 History Torsemide [Demadex] 20 mg PO DAILY@0900 04/15/21 04/15/21 History levETIRAcetam [Keppra] 250 mg PO DAILY@1700 04/15/21 04/15/21 History traMADol HCL [Ultram] 50 mg PO Q6H PRN 04/15/21 04/15/21 History Allergies Allergy/AdvReac Type Severity Reaction Status Date / Time ceresin [From Eucerin] Allergy Unknown Verified 04/15/21 20:19 emollient combination no.33 Allergy Unknown Verified 04/15/21 20:19 [From Eucerin] Iodinated Contrast Media Allergy Rash/Hives Verified 04/15/21 20:19 isopropyl myristate Allergy Unknown Verified 04/15/21 20:19 [From Eucerin] lanolin alcohols Allergy Unknown Verified 04/15/21 20:19 [From Eucerin] mineral oil [From Eucerin] Allergy Unknown Verified 04/15/21 20:19 Penicillins Allergy Rash/Hives Verified 04/15/21 20:19 petrolatum,white Allergy Unknown Verified 04/15/21 20:19 [From Eucerin] soap [From Eucerin] Allergy Unknown Verified 04/15/21 20:19 tuberculin,PPD,multi-puncture Allergy Unknown Verified 04/15/21 20:19 warfarin Allergy Unknown Verified 04/15/21 20:19 water [From Eucerin] Allergy Unknown Verified 04/15/21 20:19 codeine AdvReac Itching Verified 04/15/21 20:19 muscle rub Allergy Unknown Uncoded 04/15/21 20:19 Physical Exam Vitals: Vital Signs Temp Pulse Pulse Resp BP BP Pulse Ox 04/16/21 20:18 75 04/16/21 20:06 76 99 04/16/21 20:00 98.3 F 74 14 113/60 94 L 04/16/21 16:24 78 04/16/21 16:13 72 04/16/21 15:30 98.6 F 81 18 145/76 98 04/16/21 11:17 77 04/16/21 11:08 80 04/16/21 08:02 89 04/16/21 08:00 99.9 F H 91 18 121/62 94 L 04/16/21 07:53 90 93 L 04/16/21 06:57 99.7 F H 95 18 145/68 96 04/16/21 04:54 90 18 95/67 97 04/16/21 03:00 92 18 103/56 95 04/16/21 02:32 91 18 101/52 96 04/15/21 21:44 99.5 F 91 18 139/72 96 Intake and Output 04/16/21 04/16/21 04/16/21 06:59 14:59 22:59 Intake Total 250 Balance 250 Intake: Intake, IV Titration 250 Amount Vancomycin 1,500 mg In 250 Sodium Chloride 0.9% 250 ml @ 125 mls/hr IVPB ONCE ONE Rx#:[id number] Other: Voiding Method Indwelling Catheter Weight 99.79 kg Results CBC & Chem 7: 04/16/21 03:42 04/16/21 03:42 Labs: Abnormal Lab Results - Last 24 Hours (Table) 04/16/21 04/16/21 04/16/21 Range/Units 03:42 03:42 17:31 WBC 13.3 H (3.8-10.6) k/uL RBC 3.33 L (3.80-5.40) m/uL Hgb 9.5 L (11.4-16.0) gm/dL Hct 32.7 L (34.0-46.0) % MCHC 28.9 L (31.0-37.0) g/dL RDW 17.2 H (11.5-15.5) % Neutrophils # 11.2 H (1.3-7.7) k/uL Potassium 5.2 H (3.5-5.1) mmol/L BUN 99 H (7-17) mg/dL Creatinine 3.43 H (0.52-1.04) mg/dL Glucose 113 H (74-99) mg/dL POC Glucose (mg/dL) 183 H (75-99) mg/dL Calcium 8.3 L (8.4-10.2) mg/dL 04/16/21 Range/Units 20:10 WBC (3.8-10.6) k/uL RBC (3.80-5.40) m/uL Hgb (11.4-16.0) gm/dL Hct (34.0-46.0) % MCHC (31.0-37.0) g/dL RDW (11.5-15.5) % Neutrophils # (1.3-7.7) k/uL Potassium (3.5-5.1) mmol/L BUN (7-17) mg/dL Creatinine (0.52-1.04) mg/dL Glucose (74-99) mg/dL POC Glucose (mg/dL) 199 H (75-99) mg/dL Calcium (8.4-10.2) mg/dL Microbiology - Last 24 Hours (Table) 04/15/21 18:58 Urine Culture - Preliminary Urine,Voided Gram Neg Bacilli
[2021-04-17 07:03] LABS: Glucose,Whole Blood 131 mg/dL (75-99)
[2021-04-17] MEDS: ALBUTEROL NEBULIZED 2.5 MG/3 ML INHALATION SCH ×4 (07:24→19:37)
[2021-04-17] MEDS: INSULIN DETEMIR (LEVEMIR) 100 UNIT/ML SYR SQ SCH ×2 (08:42→21:02)
[2021-04-17] MEDS: INSULIN ASPART (NovoLOG) 100 UNIT/ML VIAL SQ SCH ×3 (08:42→18:19)
[2021-04-17] MEDS: LORATADINE 10 MG TAB PO SCH (08:51)
[2021-04-17] MEDS: FOLIC ACID 1 MG TAB PO SCH (08:51)
[2021-04-17] MEDS: PANTOPRAZOLE 40 MG TABLET PO SCH (08:51)
[2021-04-17] MEDS: APIXABAN 2.5 MG TABLET PO SCH ×2 (08:51→17:51)
[2021-04-17] MEDS: SERTRALINE 100 MG TAB PO SCH (08:51)
[2021-04-17] MEDS: carvediloL 3.125 MG TAB PO SCH ×2 (08:51→17:51)
[2021-04-17] MEDS: allopurinoL 100 MG TAB PO SCH (08:52)
[2021-04-17] MEDS: DORZOLAMIDE-TIMOLOL 2.23%/0.68 10ML BTL BOTH EYES SCH ×2 (08:52→21:05)
[2021-04-17] MEDS: PREGABALIN 50 MG CAP PO SCH (08:52)
[2021-04-17 09:01] LABS: Anisocytosis Slight; Basophils % (A) 0 %; Eosinophils # (A) 0.2 k/uL (0-0.7); Eosinophils % (A) 2 %; HCT 32.5 % (34.0-46.0); HGB 9.3 gm/dL (11.4-16.0); Hypochromasia Marked; Lymphocytes # (A) 1.2 k/uL (1.0-4.8); Lymphocytes % (A) 10 %; MCH 28.6 pg (25.0-35.0); MCHC 28.6 g/dL (31.0-37.0); MCV 99.8 fL (80.0-100.0); Macrocytosis Slight; Mean Platelet Volume 9.8; Monocytes # (A) 0.7 k/uL (0-1.0); Monocytes % (A) 6 %; Neutrophils # (A) 9.5 k/uL (1.3-7.7); Neutrophils % (A) 79 %; Platelet Count 197 k/uL (150-450); RBC 3.25 m/uL (3.80-5.40)
[2021-04-17 11:38] LABS: Calcium 7.9 mg/dL (8.4-10.2); Potassium 5.1 mmol/L (3.5-5.1)
[2021-04-17 11:40] LABS: Vancomycin,Random 19.3 ug/mL
[2021-04-17 11:51] LABS: Glucose,Whole Blood 192 mg/dL (75-99)
[2021-04-17] MEDS: FLUOROMETHOLONE 0.1% OPHTH DROPS 5 ML BTL RIGHT EYE SCH (12:10)
[2021-04-17 12:52] LABS: C Reactive Protein 41.7 mg/dL (<1.0)
[2021-04-17 13:07] LABS: Erythrocyte Sedimentation Rate 99 mm/hr (0-20)
[2021-04-17 15:03] LABS: Glucose,Whole Blood 194 mg/dL (75-99)
--- NOTE | 2021-04-17 15:30 | XR ---
EXAMINATION TYPE: XR chest 1V portable DATE OF EXAM: 04/17/2021 HISTORY: Shortness of breath. COMPARISON: 04/16/2021 TECHNIQUE: Single view of the chest is submitted. Examination is limited by the degree of inspiration . FINDINGS: Demonstrated are scattered senescent parenchymal change. There is no evidence for focal infiltrate. The heart is stable. Hilar and mediastinal structures are within normal limits. Degenerative changes are seen of the dorsal spine. IMPRESSION: 1. Chronic changes without evidence for acute pulmonary disease.
[2021-04-17 16:10] LABS: ABG Base Excess 3.5 mmol/L; ABG HCO3 31 mmol/L (21-25); ABG Oxygen Saturation 94.9 % (94-97); ABG PCO2 67 mmHg (35-45); ABG PH 7.27 (7.35-7.45); ABG PO2 95 mmHg (83-108); ABG TCO2 33 mmol/L (19-24); Allen Test Performed? Yes
--- NOTE | 2021-04-17 16:48 | CT ---
EXAMINATION TYPE: CT brain wo con DATE OF EXAM: 04/17/2021 COMPARISON: None HISTORY: mental status change TECHNIQUE: CT scan of the brain performed without contrast CT DLP: 1069.8 mGycm Automated exposure control for dose reduction was used. FINDINGS: Large left MCA territory infarction and patchy low-attenuation the deep white matter and periventricu lar region consistent with chronic microvascular ischemic changes. Brain volume loss with resultant p rominence of the CSF spaces and ventricular system. No basilar cisternal effacement. Romo-white matte r differentiation is preserved. No midline shift or mass effect. No acute orbital, osseous or soft tissue abnormality. Postsurgical changes are seen in the right orbi t. Atherosclerotic calcifications are seen in the intracranial internal carotid arteries. Marked left mastoid air cell effusion seen, the mastoid osseous structures are ill-defined. No mastoi d air cell effusion seen on the right. The paranasal sinuses are aerated. IMPRESSION: 1. NO ACUTE INTRACRANIAL HEMORRHAGE, MIDLINE SHIFT OR MASS EFFECT. 2. LEFT MCA TERRITORY REMOTE INFARCTION. 3. CHRONIC MICROVASCULAR ISCHEMIC CHANGES AND BRAIN VOLUME ATROPHY. 4. LEFT MASTOID AIR CELL EFFUSION ILL-DEFINED MASTOID OSSEOUS STRUCTURES CLINICAL CORRELATION RECOMME NDED THERE IS SOME MOTION WHICH COULD MAKE IT DIFFICULT TO EXCLUDE BONY EROSION AND/OR OSTEOMYELIT IS.
[2021-04-17 17:08] LABS: Glucose,Whole Blood 155 mg/dL (75-99)
[2021-04-17] MEDS ORDERED: IPRATROPIUM-ALBUTEROL 3 ML NEB INHALATION PRN (17:10)
[2021-04-17] MEDS ORDERED: methylPREDNISolone SOD SUCCI 125 MG/2 ML VIAL IV STA (17:13)
[2021-04-17] MEDS: levETIRAcetam 250 MG TAB PO SCH (17:51)
[2021-04-17] MEDS: MAGNESIUM OXIDE 400 MG TAB PO SCH (17:51)
[2021-04-17] MEDS: LIDOCAINE 5% PATCH TOPICAL SCH (17:51)
[2021-04-17] MEDS ORDERED: FUROSEMIDE 10 MG/ML 4 ML VIAL IV STA (17:57)
--- NOTE | 2021-04-17 18:05 | P.CNPUL ---
History of Present Illness Consult date: 04/17/21 Reason for consult: dyspnea Chief complaint: Altered mentation History of present illness: 65-year-old female patient, debilitated due to a previous CVA as the patient has right-sided weakness, transferred from [facility] because of infection/sepsis. The patient is morbidly obese and she has a BMI of 43.0. She has chronic hypoxic and hypercapnic respiratory failure. The patient was found to be increasingly lethargic and she was having episodes of fever. Pro- calcitonin level was elevated. She was started on vancomycin. She has a large unstageable necrotic right heel wound which is obviously infected. Sed rate was elevated. MRI of the right foot was completed on 04/09/2021 and this was positive for osteomyelitis. For that reason, the patient was transferred to us. I was asked to evaluate the patient has the patient was quite lethargic and somnolent. She was a CO2 narcosis. The blood gases was done and it showed a pH of 7.27 with a pCO2 of 67 and pO2 of 95 and this was done and FiO2 of 3 L of oxygen by nasal cannula. Her BUN is at 107 with a creatinine of 3.7. White cell count is at 12 with a hemoglobin of 9.3. Platelet count is at 197. Sedimentation rate is 99. Her proBNP level was 1710. COVID-19 testing was negative. C. diff was negative. UA was abnormal and it was positive for white cells and there is potential gram-negative bacillus in the urine. The chest x- ray showed cardiomegaly and mild pulmonary vascular congestion. Review of Systems ROS unobtainable: due to mental status Past Medical History Past Medical History: Coronary Artery Disease (CAD), Heart Failure, CVA/TIA, Diabetes Mellitus, Deep Vein Thrombosis (DVT), GERD/Reflux, Hypertension, Pulmonary Embolus (PE), Renal Disease, Sleep Apnea/CPAP/BIPAP Additional Past Medical History / Comment(s): tremmors, right sided weakness from CVA. Immobile uses fany lift at [facility]. History of Any Multi-Drug Resistant Organisms: None Reported Past Surgical History: Tonsillectomy Additional Past Surgical History / Comment(s): G tube, pressure pump right eye Past Anesthesia/Blood Transfusion Reactions: No Reported Reaction Past Psychological History: Anxiety, Depression Smoking Status: Never smoker Past Alcohol Use History: None Reported Past Drug Use History: None Reported - Past Family History Father History Unknown: Yes Family Medical History: No Reported History, Unable to Obtain Mother History Unknown: Yes Family Medical History: No Reported History, Unable to Obtain Medications and Allergies Home Medications Medication Instructions Recorded Confirmed Type allopurinoL [Zyloprim] 200 mg PO DAILY@0700 07/24/17 04/15/21 History Fluorometholone 0.1% Ophth Juanita 1 drop RIGHT EYE DAILY@1200 08/30/18 04/15/21 His tory [Fml] Latanoprost/Pf [Latanoprost 0.005% 1 drop BOTH EYES DAILY@199908/30/18 04/15/21 History Eye Drop] Nitroglycerin Sl Tabs [Nitrostat] 0.4 mg SL Q5M PRN 08/30/18 04/15/21 History Omeprazole 20 mg PO DAILY@0700 08/30/18 04/15/21 History Ondansetron HCl [Zofran] 4 mg PO Q6H PRN 08/30/18 04/15/21 History Acetaminophen Tab [Tylenol] 650 mg PO QID@01,07,,08/06/20 04/15/21 History Apixaban [Eliquis] 2.5 mg PO BID@0700,1700 08/06/20 04/15/21 History Atropine Ophth Soln 1% 5Ml [Isopto 2 drops SUBLINGUAL Q2H PRN 08/06/20 04/15/21 History Atropine 1% 5Ml] Bisacodyl 10 mg PO Q72H PRN 08/06/20 04/15/21 History Dorzolamide/Timolol/Pf [Cosopt Pf 1 drop BOTH EYES BID@0700,209908/06/20 04/15/21 History 2%/0.5% Ophth Droperette] Melatonin 5 mg PO HS@209908/06/20 04/15/21 History Sertraline HCl [Zoloft] 100 mg PO DAILY@0700 08/06/20 04/15/21 History Sodium Chloride [Saline Mist] 1 spray EA NOSTRIL Q2H PRN 08/06/20 04/15/21 History bisacodyL 10 mg RECTAL Q72H PRN 08/06/20 04/15/21 History Albuterol Nebulized [Ventolin 2.5 mg INHALATION RT-QID PRN 11/28/20 04/15/21 History Nebulized] Epoetin Josh [Procrit] 20,000 units SQ Q7D 11/28/20 04/15/21 History Liquicel 30 ml PO BID@0700,1700 11/28/20 04/15/21 History Liraglutide [Victoza 3-Jose] 1.8 mg SQ DAILY@1700 11/28/20 04/15/21 History carvediloL [Coreg] 3.125 mg PO BID@0700,1700 11/28/20 04/15/21 History Albuterol Nebulized [Ventolin 2.5 mg INHALATION 04/15/21 04/15/21 History Nebulized] RT-QID@,,, Atorvastatin [Lipitor] 20 mg PO HS@209904/15/21 04/15/21 History Ergocalciferol [Vitamin D2 (1250 1,250 mcg PO Q14D@169904/15/21 04/15/21 History Mcg = 61572 Iu)] Folic Acid 1 mg PO DAILY@0700 04/15/21 04/15/21 History Insulin Aspart [NovoLOG] 10 unit SQ TID-W/MEALS@,,04/15/21 04/15/21 History Insulin Aspart [NovoLOG] See Protocol SQ AC-TID@,,04/15/21 04/15/21 History Insulin Glargine [Lantus Vial] 50 unit SQ BID@0700,2100 04/15/21 04/15/21 History Lidocaine [Aspercreme Patch] 1 patch TOPICAL DAILY@1600 04/15/21 04/15/21 History Loratadine [Claritin] 10 mg PO DAILY@0700 04/15/21 04/15/21 History Magnesium Hydroxide [Milk of 7,200 mg PO Q24H PRN 04/15/21 04/15/21 History Magnesia Concentrate] Magnesium Oxide [Mag-Ox] 250 mg PO DAILY@1700 04/15/21 04/15/21 History Pregabalin [Lyrica] 50 mg PO BID@0700,2100 04/15/21 04/15/21 History Torsemide [Demadex] 20 mg PO DAILY@0900 04/15/21 04/15/21 History levETIRAcetam [Keppra] 250 mg PO DAILY@1700 04/15/21 04/15/21 History traMADol HCL [Ultram] 50 mg PO Q6H PRN 04/15/21 04/15/21 History Allergies Allergy/AdvReac Type Severity Reaction Status Date / Time ceresin [From Eucerin] Allergy Unknown Verified 04/15/21 20:19 emollient combination no.33 Allergy Unknown Verified 04/15/21 20:19 [From Eucerin] Iodinated Contrast Media Allergy Rash/Hives Verified 04/15/21 20:19 isopropyl myristate Allergy Unknown Verified 04/15/21 20:19 [From Eucerin] lanolin alcohols Allergy Unknown Verified 04/15/21 20:19 [From Eucerin] mineral oil [From Eucerin] Allergy Unknown Verified 04/15/21 20:19 Penicillins Allergy Rash/Hives Verified 04/15/21 20:19 petrolatum,white Allergy Unknown Verified 04/15/21 20:19 [From Eucerin] soap [From Eucerin] Allergy Unknown Verified 04/15/21 20:19 tuberculin,PPD,multi-puncture Allergy Unknown Verified 04/15/21 20:19 warfarin Allergy Unknown Verified 04/15/21 20:19 water [From Eucerin] Allergy Unknown Verified 04/15/21 20:19 codeine AdvReac Itching Verified 04/15/21 20:19 muscle rub Allergy Unknown Uncoded 04/15/21 20:19 Physical Exam Vitals: Vital Signs Temp Pulse Pulse Resp BP Pulse Ox 04/17/21 15:58 66 04/17/21 15:47 66 04/17/21 15:10 98.2 F 84 30 H 145/79 95 04/17/21 13:54 96.7 F L 71 18 121/56 98 04/17/21 11:47 78 04/17/21 11:37 95 04/17/21 08:00 96.9 F L 81 20 133/80 97 04/17/21 07:35 74 04/17/21 07:25 72 04/17/21 02:00 98.2 F 82 15 108/53 97 04/16/21 20:18 75 04/16/21 20:06 76 99 04/16/21 20:00 98.3 F 74 14 113/60 94 L Intake and Output 04/17/21 04/17/21 04/17/21 06:59 14:59 22:59 Intake Total 250 Output Total 1000 Balance -750 Intake: Oral 250 Output: Urine 1000 Other: Voiding Method Indwelling Catheter GENERAL EXAM: Alert, very pleasant, 65-year-old white female, the patient is currently untreated about 2 by nasal cannula. She is quite obtunded and she is obvious CO2 narcosis secondary to hypercapnic respiratory failure. She is arousable. Very much lethargic. Patient is morbidly obese, she has right-sided hemiparesis related to previous history of stroke, and chronic contracture of her right arm and hand. Speech is slow HEAD: Normocephalic/atraumatic. EYES: Normal reaction of pupils, equal size. Conjunctiva pink, sclera white. NOSE: Clear with pink turbinates. THROAT: No erythema or exudates. NECK: No masses, no JVD, no thyroid enlargement, no adenopathy. The patient has significant crowding of the posterior oropharynx and she has a Mallampati class IV CHEST: No chest wall deformity. Symmetrical expansion. LUNGS: Equal air entry with no crackles, wheeze, rhonchi or dullness. CVS: Regular rate and rhythm, normal S1 and S2, no gallops, no murmurs, no rubs ABDOMEN: Soft, nontender. No hepatosplenomegaly, normal bowel sounds, no guarding or rigidity. EXTREMITIES: No clubbing, no edema, no cyanosis, 2+ pulses and upper and lower extremities. MUSCULOSKELETAL: Patient has chronic right-sided hemiparesis, with chronic contractures of right hand, right arm related to previous history of stroke. Patient is bedbound on a regular basis, requires a Fany lift for transfers, and the patient has a stage IV/unstageable necrotic right heel wound with some foul- smelling discharge. SPINE: No scoliosis or deformity SKIN: No rashes CENTRAL NERVOUS SYSTEM: Patient is quite obtunded at this point in time, arousable, has chronic right-sided maisha-paresis. She withdraws to painful stimulation. Results - Laboratory Findings CBC and BMP: 04/17/21 08:38 04/17/21 08:38 ABG ABG pH 7.27 (7.35-7.45) L 04/17/21 16:05 ABG pCO2 67 mmHg (35-45) H 04/17/21 16:05 ABG pO2 95 mmHg (83-108) 04/17/21 16:05 ABG O2 Saturation 94.9 % (94-97) 04/17/21 16:05 Abnormal lab findings: Abnormal Labs 04/15/21 04/15/21 04/15/21 18:58 18:58 18:58 WBC 16.9 H RBC 3.42 L Hgb 9.7 L Hct 33.5 L MCHC 29.0 L RDW 17.8 H Neutrophils # 14.2 H ESR ABG pH ABG pCO2 ABG HCO3 ABG Total CO2 Potassium 5.2 H BUN 95 H Creatinine 3.31 H Glucose 117 H POC Glucose (mg/dL) Calcium AST 54 H ALT 123 H Alkaline Phosphatase 260 H C-Reactive Protein Total Protein 5.2 L Albumin 2.5 L Urine Appearance Cloudy H Urine Protein 2+ H Urine Blood Trace H Ur Leukocyte Esterase Large H Urine WBC 76 H Urine WBC Clumps Few H Urine Bacteria Occasional H Urine Mucus Rare H 04/16/21 04/16/21 04/16/21 03:42 03:42 17:31 WBC 13.3 H RBC 3.33 L Hgb 9.5 L Hct 32.7 L MCHC 28.9 L RDW 17.2 H Neutrophils # 11.2 H ESR ABG pH ABG pCO2 ABG HCO3 ABG Total CO2 Potassium 5.2 H BUN 99 H Creatinine 3.43 H Glucose 113 H POC Glucose (mg/dL) 183 H Calcium 8.3 L AST ALT Alkaline Phosphatase C-Reactive Protein Total Protein Albumin Urine Appearance Urine Protein Urine Blood Ur Leukocyte Esterase Urine WBC Urine WBC Clumps Urine Bacteria Urine Mucus 04/16/21 04/17/21 04/17/21 20:10 07:01 08:38 WBC RBC Hgb Hct MCHC RDW Neutrophils # ESR ABG pH ABG pCO2 ABG HCO3 ABG Total CO2 Potassium BUN 107 H* Creatinine 3.71 H Glucose 131 H POC Glucose (mg/dL) 199 H 131 H Calcium 7.9 L AST ALT Alkaline Phosphatase C-Reactive Protein 41.7 H Total Protein Albumin Urine Appearance Urine Protein Urine Blood Ur Leukocyte Esterase Urine WBC Urine WBC Clumps Urine Bacteria Urine Mucus 04/17/21 04/17/21 04/17/21 08:38 11:46 14:58 WBC 12.0 H RBC 3.25 L Hgb 9.3 L Hct 32.5 L MCHC 28.6 L RDW 17.0 H Neutrophils # 9.5 H ESR 99 H ABG pH ABG pCO2 ABG HCO3 ABG Total CO2 Potassium BUN Creatinine Glucose POC Glucose (mg/dL) 192 H 194 H Calcium AST ALT Alkaline Phosphatase C-Reactive Protein Total Protein Albumin Urine Appearance Urine Protein Urine Blood Ur Leukocyte Esterase Urine WBC Urine WBC Clumps Urine Bacteria Urine Mucus 04/17/21 04/17/21 16:05 17:06 WBC RBC Hgb Hct MCHC RDW Neutrophils # ESR ABG pH 7.27 L ABG pCO2 67 H ABG HCO3 31 H ABG Total CO2 33 H Potassium BUN Creatinine Glucose POC Glucose (mg/dL) 155 H Calcium AST ALT Alkaline Phosphatase C-Reactive Protein Total Protein Albumin Urine Appearance Urine Protein Urine Blood Ur Leukocyte Esterase Urine WBC Urine WBC Clumps Urine Bacteria Urine Mucus - Diagnostic Findings Chest x-ray: image reviewed Assessment and Plan Plan: 1 altered mental status with CO2 narcosis and hypercapnic respiratory failure. The patient has an acute on top of chronic hypercapnic respiratory failure. Decompensating factor could be underlying infection/sepsis. The blood gas shows clearly a component of acute on top of chronic respiratory acidosis. The patient would benefit from noninvasive positive pressure ventilation. 2 chronically infected/non-stage of a necrotic right heel with evidence of ost eomyelitis based on the most recent MRI of the right foot that was done on 04/09/2021. 3 suspect gram-negative urine checked infection/sepsis 4 morbid obesity with chronic hypoxic and hypercapnic respiratory failure. The patient has significant features of obesity hypoventilation syndrome/obstructive sleep apnea. She has typical pickwickian features. 5 coronary artery disease 6 hypertensive heart disease with diastolic heart failure 7 diabetes mellitus type 2 maintained on insulin on outpatient basis 8 history of CVA with right-sided paralysis 9 gait dysfunction and general medical debility and the patient requires a Fany lift for transfer 10 chronic stage IV kidney disease 11 hypertension 12 previous history of pulmonary embolism/DVT and the patient has limited onset atrial fibrillation on a chronic basis with Eliquis 13 chronic anxiety set depression 14 care home resident 15 morbid obesity with BMI of 49 Plan Surgical consult regarding the unstageable right heel wound in infection/necrosis with osteomyelitis Wound cultures Blood cultures Urine cultures Antibiotic per infectious disease. The patient was given vancomycin outpatient basis. Rocephin was added for gram-negative UTI Give the patient does of Lasix 40 mg IV push We'll support the patient with a BiPAP regarding and hypercapnic respiratory failure. We'll put the patient on BiPAP at a pressure of 12/6 cm of water as a start with FiO2 to be adjusted to maintain a saturation above 90% Resume the blood sugar and avoid hypoglycemia and resume insulin in addition to the rest of the home medications Continue anticoagulation with Eliquis Prognosis poor baseline above-mentioned comorbidities. 1 services is been consulted. After surgery has been consulted. ID has been consulted. Plan:
--- NOTE | 2021-04-17 18:12 | PN ---
PROGRESS NOTE DATE OF SERVICE: 04/17/2021 REASON FOR FOLLOWUP: 1. Right heel pressure ulcer, concern for underlying osteomyelitis. 2. Possible UTI. INTERVAL HISTORY: The patient is currently afebrile. The patient remains sleepy and lethargic, unable to provide any history. No vomiting or diarrhea or any other changes reported by the nursing staff. PHYSICAL EXAMINATION: Blood pressure 145/79, pulse of 66, temperature of 98.2. She is 95% on 2 L nasal cannula. General description is a middle-aged female lying in bed in no distress. RESPIRATORY SYSTEM: Unlabored breathing. Decreased breath sounds at the bases. No wheeze. HEART: S1, S2. Regular rate and rhythm. ABDOMEN: Soft. No tenderness. Right heel wound with slough tissue, some surrounding redness. No drainage was noticed. LABS: Hemoglobin is 9.3, white count down to 12,000. Urine showing a Gram-negative. DIAGNOSTIC IMPRESSION AND PLAN: 1. Patient admitted to hospital with a fever, concerning for a right heel osteomyelitis on the basis of recent done in the outpatient setting. We are waiting for vascular surgery evaluation for debridement of the wound and deep culture as well as bone biopsy. Antibiotic will be based on those cultures. 2. Urinary tract infection, covered with Rocephin. White count trending down. Continue with supportive care. MMODL / IJN: [id number] /
[2021-04-17 21:01] LABS: Glucose,Whole Blood 117 mg/dL (75-99)
[2021-04-17] MEDS: LATANOPROST 0.005% OPHTH DROPS 2.5 ML BTL BOTH EYES SCH (21:05)
[2021-04-17] MEDS: ATORVASTATIN 20 MG TAB PO SCH (21:05)
[2021-04-17] MEDS: MELATONIN 5 MG TABLET PO SCH (21:05)
--- NOTE | 2021-04-17 22:01 | P.PN ---
Subjective Progress Note Date: 04/17/21 65 year old female with past history of stroke and right-sided weakness, CAD/CHF, diabetes mellitus, hypertension, PE/DVT, who presents to [facility] from her extended care facility. Patient was having increased lethargy and fever. At their facility patient underwent laboratory studies and a chest x-ray. She was found have a white count of 17.6. Hemoglobin 9.4. Creatinine was 3.3. CMP greater than 270 and procalcitonin 1.9. She had an MRI done at our facility on the which was positive for osteomyelitis of the right heel. Patient did not appear to be on any antibiotics. At [facility] she was started on vancomycin. They requested transfer for infectious disease consult. Patient appears fatigued however able to answer most questions. Denies being any pain. She has a history of chronic kidney disease however kidney function was found to be worse today. Workup in ED with blood work reveals a WBC of 16.9, hemoglobin of 9.7, hematocrit 33.5 and platelet count of 194, sodium 137, potassium 5.2, BUN/creatinine markedly elevated at 95/3.31; UA is positive; MRI done and reviewed in ED reveals osteomyelitis 04/17/2021 Patient is seen and evaluated with nursing staff. Patient is currently extremely lethargic and responding only to sternal rub. Darlene signs are reviewed and remain stable. O2 saturation is between 89-90%/. Stat CT of head ordered without contrast, labs ordered including ammonia level. Stat ABG ; serial troponins; ABG are reviewed and reveal CO2 of 67. Floor nurse called and patient placed on BIPAP. Chest X ray reviewed which is unremarkable. Medication reviewed and all sedating medications are placed on hold. Pulmonary consult placed. Objective - Vital Signs Vital signs: Vital Signs Temp 96.9 F L 04/17/21 08:00 Pulse 78 04/17/21 11:47 Resp 20 04/17/21 08:00 BP 133/80 04/17/21 08:00 Pulse Ox 97 04/17/21 08:00 Intake & Output 04/16/21 04/17/21 04/17/21 18:59 06:59 18:59 Intake Total 250 250 Output Total 1000 Balance 250 -750 Weight 99.79 kg Intake: Intake, IV Titration 250 Amount Vancomycin 1,500 mg In 250 Sodium Chloride 0.9% 250 ml @ 125 mls/hr IVPB ONCE ONE Rx#:[id number] Oral 250 Output: Urine 1000 Other: Voiding Method Indwelling Catheter Indwelling Catheter Indwelling Catheter - Exam PHYSICAL EXAMINATION: GENERAL: The patient is alert and oriented x3, not in any acute distress. Well developed, well nourished. HEENT: Pupils are round and equally reacting to light. EOMI. No scleral icterus. No conjunctival pallor. Normocephalic, atraumatic. No pharyngeal erythema. No thyromegaly. CARDIOVASCULAR: S1 and S2 present. No murmurs, rubs, or gallops. PULMONARY: Chest is clear to auscultation, no wheezing or crackles. ABDOMEN: Soft, nontender, nondistended, normoactive bowel sounds. No palpable organomegaly. MUSCULOSKELETAL: No joint swelling or deformity. EXTREMITIES: No cyanosis, clubbing, or pedal edema. NEUROLOGICAL: Gross neurological examination did not reveal any focal deficits. SKIN: No rashes. - Labs CBC & Chem 7: 04/17/21 08:38 04/17/21 08:38 Labs: Abnormal Lab Results - Last 24 Hours (Table) 04/16/21 04/16/21 04/17/21 Range/Units 17:31 20:10 07:01 WBC (3.8-10.6) k/uL RBC (3.80-5.40) m/uL Hgb (11.4-16.0) gm/dL Hct (34.0-46.0) % MCHC (31.0-37.0) g/dL RDW (11.5-15.5) % Neutrophils # (1.3-7.7) k/uL ESR (0-20) mm/hr BUN (7-17) mg/dL Creatinine (0.52-1.04) mg/dL Glucose (74-99) mg/dL POC Glucose (mg/dL) 183 H 199 H 131 H (75-99) mg/dL Calcium (8.4-10.2) mg/dL C-Reactive Protein (<1.0) mg/dL 04/17/21 04/17/21 04/17/21 Range/Units 08:38 08:38 11:46 WBC 12.0 H (3.8-10.6) k/uL RBC 3.25 L (3.80-5.40) m/uL Hgb 9.3 L (11.4-16.0) gm/dL Hct 32.5 L (34.0-46.0) % MCHC 28.6 L (31.0-37.0) g/dL RDW 17.0 H (11.5-15.5) % Neutrophils # 9.5 H (1.3-7.7) k/uL ESR 99 H (0-20) mm/hr BUN 107 H* (7-17) mg/dL Creatinine 3.71 H (0.52-1.04) mg/dL Glucose 131 H (74-99) mg/dL POC Glucose (mg/dL) 192 H (75-99) mg/dL Calcium 7.9 L (8.4-10.2) mg/dL C-Reactive Protein 41.7 H (<1.0) mg/dL Microbiology - Last 24 Hours (Table) 04/15/21 18:58 Urine Culture - Preliminary Urine,Voided Gram Neg Bacilli Assessment and Plan Assessment: 1. Osteomyelitis right heel - MRI of the foot reveals osteomyelitis; patient has been placed on IV vancomycin; blood cultures and wound cultures are obtained and pending - Infectious disease is consulted for further recommendations on IV antibiotics and duration of treatment 2. Leukocytosis/sepsis; related to UTI/osteomyelitis - Patient has been placed on Rocephin 1 g IV daily and vancomycin - Blood cultures and urine cultures are obtained and pending; we will monitor CBC, CRP and for calcitonin 3. Profound UTI; patient received Rocephin 1 g IV daily; we will plan to continue current antibiotics at this time with further changes pending culture results 4. Acute on chronic kidney disease; slow IV fluid hydration with normal saline at a rate of 75 mL an hour; we will monitor strict BOLA's, daily weights, renal function and electrolytes; avoid nephrotoxin agents and hypotension 5. Hypertension; Coreg 3.125 mg twice a day 6. Diabetes mellitus controlled with insulin; continue with Lantus 50 units subcu twice a day; we will monitor Accu-Cheks before meals and at bedtime with insulin sliding scale 7. 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 CAD/CHF; stable on aspirin 81 mg daily, beta blockers Coreg 3.125 mg twice a day and statin therapy; hold off on diuretic therapy due to acute renal injury 9. Hyperlipidemia; Lipitor 20 mg by mouth daily at bedtime DVT prophylaxis; SCDs/systemic anticoagulation CODE STATUS; DO NOT RESUSCITATE
[2021-04-17] MEDS: methylPREDNISolone SOD SUCCI 125 MG/2 ML VIAL IV SCH (23:29)
[2021-04-18] MEDS: ALBUTEROL NEBULIZED 2.5 MG/3 ML INHALATION SCH ×4 (06:23→19:41)
[2021-04-18 06:32] LABS: Anisocytosis Slight; Basophils % (A) 0 %; Eosinophils % (A) 0 %; HCT 35.9 % (34.0-46.0); Hypochromasia Marked; Lymphocytes # (A) 0.7 k/uL (1.0-4.8); Lymphocytes % (A) 8 %; MCH 28.1 pg (25.0-35.0); MCHC 27.7 g/dL (31.0-37.0); MCV 101.5 fL (80.0-100.0); Macrocytosis Moderate; Mean Platelet Volume 10.2; Monocytes # (A) 0.3 k/uL (0-1.0); Monocytes % (A) 3 %; Neutrophils # (A) 8.1 k/uL (1.3-7.7); Neutrophils % (A) 89 %; Platelet Count 226 k/uL (150-450); RBC 3.54 m/uL (3.80-5.40); WBC 9.1 k/uL (3.8-10.6)
[2021-04-18 06:41] LABS: African American GFR (CKD) 15 (>60 ml/min/1.73 sqM); Anion Gap 12 mmol/L; Calcium 8.2 mg/dL (8.4-10.2); Carbon Dioxide 26 mmol/L (22-30); Chloride 100 mmol/L (98-107); Glucose 218 mg/dL (74-99); Non-African American GFR(CKD) 13 (>60 ml/min/1.73 sqM); Potassium 5.4 mmol/L (3.5-5.1); Sodium 138 mmol/L (137-145)
[2021-04-18 06:46] LABS: Blood Urea Nitrogen 117 mg/dL (7-17)
[2021-04-18 07:15] LABS: Glucose,Whole Blood 216 mg/dL (75-99)
[2021-04-18] MEDS: INSULIN DETEMIR (LEVEMIR) 100 UNIT/ML SYR SQ SCH ×2 (08:45→22:54)
[2021-04-18] MEDS: INSULIN ASPART (NovoLOG) 100 UNIT/ML VIAL SQ SCH ×3 (08:45→18:17)
[2021-04-18] MEDS: methylPREDNISolone SOD SUCCI 125 MG/2 ML VIAL IV SCH ×3 (08:46→23:36)
[2021-04-18] MEDS: allopurinoL 100 MG TAB PO SCH (08:59)
[2021-04-18] MEDS: PANTOPRAZOLE 40 MG TABLET PO SCH (08:59)
[2021-04-18] MEDS: DORZOLAMIDE-TIMOLOL 2.23%/0.68 10ML BTL BOTH EYES SCH ×2 (09:00→22:52)
[2021-04-18] MEDS: LORATADINE 10 MG TAB PO SCH (09:00)
[2021-04-18] MEDS: APIXABAN 2.5 MG TABLET PO SCH ×2 (09:00→16:29)
[2021-04-18] MEDS: carvediloL 3.125 MG TAB PO SCH ×2 (09:00→16:28)
[2021-04-18] MEDS: FOLIC ACID 1 MG TAB PO SCH (09:00)
[2021-04-18 09:04] LABS: C Reactive Protein 36.4 mg/dL (<1.0)
[2021-04-18 11:39] LABS: Glucose,Whole Blood 337 mg/dL (75-99)
[2021-04-18] MEDS: FLUOROMETHOLONE 0.1% OPHTH DROPS 5 ML BTL RIGHT EYE SCH (13:02)
--- NOTE | 2021-04-18 13:46 | CONS ---
CONSULTATION REASON FOR CONSULT: Renal failure. HISTORY OF PRESENT ILLNESS: The patient is a 65-year-old female with history of CKD, NKF stage 4-5 with baseline creatinine around 2.1-2.4 mg/dL secondary to nephrosclerosis and diabetic kidney disease. The patient was admitted to the hospital with history of fever. She has had osteomyelitis on her right foot and has been going to the wound clinic and has been on antibiotics as well according to her sister. She had developed high fever and, therefore, she brought into the hospital. No complaints of cough or fever. No significant diarrhea, nausea, vomiting. Patient has been tolerating oral intake. Serum creatinine was 3.3, increased to 3.7, today down to 3.4 mg/dL. Patient has a chronic indwelling Vera catheter. I do see that she is maintained on Motrin. Blood pressure has not been low. Her mentation was decreased when she first came in and this has improved significantly with BiPAP on. It appears that patient had been on vancomycin prior to admission. Her level is noted to be 19.3 on 04/17/2021. PAST MEDICAL HISTORY: Significant for CKD, NKF stage 4-5, baseline creatinine around 2-2.1 mg/dL secondary to diabetic kidney disease, nephrosclerosis, coronary artery disease, history of CVA, TIA, type 2 diabetes, DVT, gastroesophageal reflux disease, hypertension, history of PE, previous history of CVA with right-sided weakness. PAST SURGICAL HISTORY: Tonsillectomy, I and D of the feet ulcers. SOCIAL HISTORY: Negative for smoking, drug abuse or alcohol abuse. MEDICATIONS: Include Zyloprim, omeprazole, Zofran, Tylenol, Bisacodyl, Procrit, Coreg, Lipitor, insulin, Demadex, Keppra, Ultram. ALLERGIES: Multiple, please see list. REVIEW OF SYSTEMS: As per HPI. Other systems negative. EXAMINATION: Patient is comfortable, awake, alert, oriented x3, not in any acute distress. The patient's sister is present at bedside. Blood pressure 153/82, heart rate 82 per minute, she is afebrile. Examination of the heart S1, S2. Examination of the lungs, decreased breath sounds at bases. Abdomen is soft, morbidly obese. Examination of lower extremities shows no significant edema. Both feet are currently wrapped. LAB: Show sodium 138, potassium 5.4, chloride is 100, BUN 117, serum creatinine 3.4, hemoglobin 10.0 g/dL. UA shows WBC 76, leukocyte esterase large. Vancomycin level 19.3. Coronavirus negative. ASSESSMENT: 1. Acute kidney injury, multifactorial, including possible vancomycin toxicity as well as related to NSAIDs Motrin will be discontinued. Vancomycin is currently off. Continue with the Vera catheter. Avoid IV fluids at this point unless renal function is worse, today the creatinine has improved from yesterday. 2. Mild hyperkalemia associated with acute kidney injury. No active GI bleed noted. 3. Disproportionately elevated BUN secondary to steroids. 4. Right foot osteomyelitis status post I and D, maintained on antibiotics. Prior to admission patient was attending the wound clinic. ID is on consult. 5. Obstructive sleep apnea and hypoventilation syndrome, being followed by Pulmonary, maintained on BiPAP. 6. Altered mentation currently improved with BiPAP and it was secondary to CO2 narcosis. 7. Morbid obesity. 8. History of cerebrovascular accident with right-sided weakness. 9. History of pulmonary embolism. PLAN: Follow up on the urine cultures. Discontinue Motrin. Continue antibiotics. Continue Vera catheter. Hold off on fluids for now as renal function is improving. Avoid nephrotoxic agents. Avoid vancomycin. Thank you for this consultation. Will continue to follow the patient with you during her hospitalization. MMROGERIOL / VITORN: [id number] /
--- NOTE | 2021-04-18 14:10 | P.PN ---
Subjective Progress Note Date: 04/18/21 65-year-old female patient, debilitated due to a previous CVA as the patient has right-sided weakness, transferred from [facility] because of infection/sepsis. The patient is morbidly obese and she has a BMI of 43.0. She has chronic hypoxic and hypercapnic respiratory failure. The patient was found to be increasingly lethargic and she was having episodes of fever. Pro- calcitonin level was elevated. She was started on vancomycin. She has a large unstageable necrotic right heel wound which is obviously infected. Sed rate was elevated. MRI of the right foot was completed on 04/09/2021 and this was positive for osteomyelitis. For that reason, the patient was transferred to us. I was asked to evaluate the patient has the patient was quite lethargic and somnolent. She was a CO2 narcosis. The blood gases was done and it showed a pH of 7.27 with a pCO2 of 67 and pO2 of 95 and this was done and FiO2 of 3 L of oxygen by nasal cannula. Her BUN is at 107 with a creatinine of 3.7. White cell count is at 12 with a hemoglobin of 9.3. Platelet count is at 197. Sedimentation rate is 99. Her proBNP level was 1710. COVID-19 testing was negative. C. diff was negative. UA was abnormal and it was positive for white cells and there is potential gram-negative bacillus in the urine. The chest x- ray showed cardiomegaly and mild pulmonary vascular congestion. The patient is seen today 04/18/2021 in follow-up on the regular medical floor. She is currently resting in bed. Currently on BiPAP 14/6 and 40% FiO2. Urine culture positive for gram-negative bacilli. White count 9.1. Hemoglobin 10.0. Platelets 226. Sodium 138. Potassium 5.4. Creatinine 3.46. Glucose 218. she remains on IV site Medrol, bronchodilators, antibiotics in the form of ceftriaxone. Anticoagulated with Eliquis. Objective - Vital Signs Vital signs: Vital Signs Temp 98.3 F 04/18/21 11:30 Pulse 84 04/18/21 11:53 Resp 18 04/18/21 11:30 BP 190/70 04/18/21 11:30 Pulse Ox 90 L 04/18/21 11:30 Intake & Output 04/17/21 04/18/21 04/18/21 18:59 06:59 18:59 Intake Total 300 600 Output Total 300 1000 Balance -300 -700 600 Intake: Oral 300 600 Output: Urine 300 1000 Other: Voiding Method Indwelling Catheter Indwelling Catheter Indwelling Catheter - Exam GENERAL EXAM: 65-year-old female patient, the patient is currentlyon BiPAP 14/6 at 40% FiO2. She is quite obtunded and she is obvious CO2 narcosis secondary to hypercapnic respiratory failure. She is arousable. Very much lethargic. Patient is morbidly obese, she has right-sided hemiparesis related to previous history of stroke, and chronic contracture of her right arm and hand. HEAD: Normocephalic/atraumatic. EYES: Normal reaction of pupils, equal size. Conjunctiva pink, sclera white. NOSE: Clear with pink turbinates. THROAT: No erythema or exudates. NECK: No masses, no JVD, no thyroid enlargement, no adenopathy. The patient has significant crowding of the posterior oropharynx and she has a Mallampati class IV CHEST: No chest wall deformity. Symmetrical expansion. LUNGS: Equal air entry with no crackles, wheeze, rhonchi or dullness. CVS: Regular rate and rhythm, normal S1 and S2, no gallops, no murmurs, no rubs ABDOMEN: Soft, nontender. No hepatosplenomegaly, normal bowel sounds, no guarding or rigidity. EXTREMITIES: No clubbing, no edema, no cyanosis, 2+ pulses and upper and lower extremities. MUSCULOSKELETAL: Patient has chronic right-sided hemiparesis, with chronic contractures of right hand, right arm related to previous history of stroke. Patient is bedbound on a regular basis, requires a Fany lift for transfers, and the patient has a stage IV/unstageable necrotic right heel wound with some foul- smelling discharge. SPINE: No scoliosis or deformity SKIN: No rashes CENTRAL NERVOUS SYSTEM: Patient is quite obtunded at this point in time, arousa ble, has chronic right-sided maisha-paresis. She withdraws to painful stimulation. - Labs CBC & Chem 7: 04/18/21 05:53 04/18/21 05:53 Labs: Abnormal Lab Results - Last 24 Hours (Table) 04/17/21 04/17/21 04/17/21 Range/Units 14:58 16:05 17:06 RBC (3.80-5.40) m/uL Hgb (11.4-16.0) gm/dL MCV (80.0-100.0) fL MCHC (31.0-37.0) g/dL RDW (11.5-15.5) % Neutrophils # (1.3-7.7) k/uL Lymphocytes # (1.0-4.8) k/uL ABG pH 7.27 L (7.35-7.45) ABG pCO2 67 H (35-45) mmHg ABG HCO3 31 H (21-25) mmol/L ABG Total CO2 33 H (19-24) mmol/L Potassium (3.5-5.1) mmol/L BUN (7-17) mg/dL Creatinine (0.52-1.04) mg/dL Glucose (74-99) mg/dL POC Glucose (mg/dL) 194 H 155 H (75-99) mg/dL Calcium (8.4-10.2) mg/dL C-Reactive Protein (<1.0) mg/dL 04/17/21 04/18/21 04/18/21 Range/Units 21:00 05:53 05:53 RBC 3.54 L (3.80-5.40) m/uL Hgb 10.0 L (11.4-16.0) gm/dL MCV 101.5 H (80.0-100.0) fL MCHC 27.7 L (31.0-37.0) g/dL RDW 17.0 H (11.5-15.5) % Neutrophils # 8.1 H (1.3-7.7) k/uL Lymphocytes # 0.7 L (1.0-4.8) k/uL ABG pH (7.35-7.45) ABG pCO2 (35-45) mmHg ABG HCO3 (21-25) mmol/L ABG Total CO2 (19-24) mmol/L Potassium 5.4 H (3.5-5.1) mmol/L BUN 117 H* (7-17) mg/dL Creatinine 3.46 H (0.52-1.04) mg/dL Glucose 218 H (74-99) mg/dL POC Glucose (mg/dL) 117 H (75-99) mg/dL Calcium 8.2 L (8.4-10.2) mg/dL C-Reactive Protein 36.4 H (<1.0) mg/dL 04/18/21 04/18/21 Range/Units 07:13 11:37 RBC (3.80-5.40) m/uL Hgb (11.4-16.0) gm/dL MCV (80.0-100.0) fL MCHC (31.0-37.0) g/dL RDW (11.5-15.5) % Neutrophils # (1.3-7.7) k/uL Lymphocytes # (1.0-4.8) k/uL ABG pH (7.35-7.45) ABG pCO2 (35-45) mmHg ABG HCO3 (21-25) mmol/L ABG Total CO2 (19-24) mmol/L Potassium (3.5-5.1) mmol/L BUN (7-17) mg/dL Creatinine (0.52-1.04) mg/dL Glucose (74-99) mg/dL POC Glucose (mg/dL) 216 H 337 H (75-99) mg/dL Calcium (8.4-10.2) mg/dL C-Reactive Protein (<1.0) mg/dL Assessment and Plan Assessment: 1 altered mental status with CO2 narcosis and hypercapnic respiratory failure. The patient has an acute on top of chronic hypercapnic respiratory failure. D ecompensating factor could be underlying infection/sepsis. The blood gas shows clearly a component of acute on top of chronic respiratory acidosis. She is currently on BiPAP 14/6 and 40% FiO2 2 chronically infected/non-stage of a necrotic right heel with evidence of osteomyelitis based on the most recent MRI of the right foot that was done on 04/09/2021. 3 gram-negative urine tract nfection/sepsis 4 morbid obesity with chronic hypoxic and hypercapnic respiratory failure. The patient has significant features of obesity hypoventilation syndrome/obstructive sleep apnea. She has typical pickwickian features. 5 coronary artery disease 6 hypertensive heart disease with diastolic heart failure 7 diabetes mellitus type 2 maintained on insulin on outpatient basis 8 history of CVA with right-sided paralysis 9 gait dysfunction and general medical debility and the patient requires a Fany lift for transfer 10 chronic stage IV kidney disease 11 hypertension 12 previous history of pulmonary embolism/DVT and the patient has limited onset atrial fibrillation on a chronic basis with Eliquis 13 chronic anxiety set depression 14 [facility] resident 15 morbid obesity with BMI of 49 Plan The patient was seen and evaluated by Dr. Leal Continue BiPAP support during the day as needed and throughout the evenings Continue IV Solu Medrol, bronchodilators, antibiotics in the form of ceftriaxone Plan was discussed with her sister Shaista who is at the bedside We will continue to follow I, the cosigning physician, performed a history & physical examination of the patient. Lungs sounds are clear. Maintaining good O2 saturations in the 90s on BiPAP 14/6 and 40% FiO2. I discussed the assessment and plan of care with my nurse practitioner, Nicole Castro. I attest to the above note as dictated by her.
[2021-04-18] MEDS ORDERED: LIDOCAINE 2% (PF) 20 MG/ML 5 ML VIAL ONE (15:09)
--- NOTE | 2021-04-18 15:52 | CDI ---
Documentation Clarification Form Date: 04/18/2021 03:36:00 PM From: Monica Shane RN, CCDS Admit Date: 04/15/2021 08:44:00 PM Patient Name: Grace Retana Visit Number: [id number] Discharge Date: ATTENTION: The Clinical Documentation Specialists (CDI) and [facility] Coding Staff appreciate your assistance in clarifying documentation. Please respond to the clarification below the line at the bottom and electronically sign. The CDI & [facility] Coding staff will review the response and follow-up if needed. Please note: Queries are made part of the Legal Health Record. If you have any questions, please contact the author of this message via ITS. Dr. Macie Hammond Your patient has the documented diagnosis of unspecified CHF in the H/P and subsequent progress notes. Additional information regarding the type and acuity of CHF is requested. 04/17 Pulmonary progress note: Hypertensive heart disease with diastolic heart failure History/Risk Factors: CD,CVA, CHF, Diabetes Mellitus, renal disease, Hypertension Clinical Indicators: 65-year-old female present as transfer from [facility]. She was found to be lethargic with fever. Past medical history has congestive heart failure 04/15 VS/Pulse OX: 113/44 90 19 95 % 2/L NC 04/17 BNP: 41.7 08/08 21 Echocardiogram Results: Overall left ventricular systolic function is normal with, an EF between 55-60% 04/17 Chest X Ray: Chronic changes without evidence for acute pulmonary disease. Treatment: Lasix 40 MMG IV Once (04/17) Coreg 3.125 MG PO BID In your professional opinion, can you please clarify the [acuity and type] of CHF if known? [ ] Acute Diastolic Heart Failure (preserved EF) [ ] Chronic Diastolic Heart Failure (preserved EF) [ ] Acute on Chronic Diastolic Heart Failure (preserved EF) [ ] Heart failure ruled out [ ] Other, please specify [ ] Unable to determine (Template Last Revised: July 2020) Chronic Diastolic Heart Failure (preserved EF) [facility]
[2021-04-18] MEDS: LIDOCAINE 5% PATCH TOPICAL SCH (16:27)
[2021-04-18] MEDS: MAGNESIUM OXIDE 400 MG TAB PO SCH (16:28)
[2021-04-18] MEDS: levETIRAcetam 250 MG TAB PO SCH (16:28)
[2021-04-18 17:26] LABS: Glucose,Whole Blood 349 mg/dL (75-99)
--- NOTE | 2021-04-18 17:37 | CONS ---
DATE OF CONSULTATION: 04/18/2021 This is a 65-year-old female. She is known to me from the past. The patient has been admitted with history of fever and chronic wound, right heel. I was consulted for deep debridement and culture of the wound. Patient has history of obesity. MEDICAL HISTORY: Patient has history of , diabetes mellitus, hyperparathyroidism, hypertension, hyperlipidemia, COPD, history of depression. PAST SURGICAL HISTORY: Patient has history of chronic renal failure. She had a HeRO graft placed in the upper arm, which has not been used for dialysis. PHYSICAL EXAMINATION: Patient was seen in her room. Neck is supple. Chest has crackles bilaterally. Abdomen is protuberant. Right heel has a wound 3 x 2 cm with necrotic skin and devitalized tissue. PLAN: Debridement and deep culture for culture and sensitivity. Discussed with the daughter and the patient. They agreed. MMROGERIOL / IJN: [id number] / MTDBlanche
--- NOTE | 2021-04-18 18:02 | OP ---
OPERATIVE REPORT PREOPERATIVE DIAGNOSIS: Chronic wound, right heel, measuring 3 x 2 cm. POSTOPERATIVE DIAGNOSIS: Chronic wound, right heel, measuring 3 x 2 x 0.5 cm. PROCEDURE DESCRIPTION: The right foot was prepped and drapes were applied in the usual sterile manner. Lidocaine 1% was infiltrated. After that, using a sharp knife, we did excision and debridement of the wound of the right heel. There was some necrotic skin which was also excised down to subcutaneous tissue. All the devitalized tissue was removed by excision with a knife. No active bleeding was noted. There was some bleeding which was controlled. Wound was copiously irrigated with saline. Santyl cream was applied. Post wound debridement measurement is 3 x 2 x 0.5 cm. Dressing was applied. PLAN: We have sent the tissue for deep culture. Santyl cream daily. Will follow with you. We will wait for the culture report. There is a possibility that we may be doing a bone biopsy from the right heel calcaneus bone. MMODL / IJN: [id number] /
[2021-04-18 21:06] LABS: Glucose,Whole Blood 399 mg/dL (75-99)
[2021-04-18 21:06] LABS: Glucose,Whole Blood 411 mg/dL (75-99)
[2021-04-18] MEDS: LATANOPROST 0.005% OPHTH DROPS 2.5 ML BTL BOTH EYES SCH (22:53)
[2021-04-18] MEDS: MELATONIN 5 MG TABLET PO SCH (22:54)
[2021-04-18] MEDS: ATORVASTATIN 20 MG TAB PO SCH (22:54)
--- NOTE | 2021-04-18 23:10 | PN ---
PROGRESS NOTE DATE OF SERVICE: 04/18/2021 REASON FOR FOLLOWUP: 1. urinary tract infection. 2. Right heel pressure ulcer suspicious for underlying osteomyelitis. INTERVAL HISTORY: The patient is afebrile. The patient seemed to be slightly more awake and alert today. On a BiPAP, though did answer some simple questions. No vomiting, diarrhea or any other changes reported by the nursing staff. PHYSICAL EXAMINATION: Blood pressure 159/77 with a pulse of 95, temperature . She is 93% on BiPAP. General description is a middle-aged female lying in bed in no distress. RESPIRATORY SYSTEM: Unlabored breathing. Decreased breath sounds at the bases. No wheeze. HEART: S1, S2. Regular rate and rhythm. ABDOMEN: Soft. No tenderness. Right heel wound is currently dressed. drainage on the dressing. LABS: White count normalized to 9.1. BUN of 117, creatinine 3.46. DIAGNOSTIC IMPRESSION AND PLAN: 1. Patient admitted to hospital with a fever, multifactorial, in this patient who did have a component of Gram-negative urinary tract infection with urine showing Providencia. Patient to continue with Rocephin. 2. Patient with right heel pressure ulcer with underlying osteomyelitis seen on MRI. Vascular Surgery has seen the patient and did perform debridement of the wound and deep cultures; discharge antibiotic on the basis of these cultures. Continue supportive care. MMODL / IJN: [id number] /
[2021-04-19 07:33] LABS: Glucose,Whole Blood 415 mg/dL (75-99)
[2021-04-19] MEDS: ALBUTEROL NEBULIZED 2.5 MG/3 ML INHALATION SCH ×4 (07:58→19:43)
[2021-04-19] MEDS: allopurinoL 100 MG TAB PO SCH (08:28)
[2021-04-19] MEDS: LORATADINE 10 MG TAB PO SCH (08:28)
[2021-04-19] MEDS: PANTOPRAZOLE 40 MG TABLET PO SCH (08:28)
[2021-04-19] MEDS: APIXABAN 2.5 MG TABLET PO SCH ×2 (08:28→16:57)
[2021-04-19] MEDS: carvediloL 3.125 MG TAB PO SCH ×2 (08:28→16:57)
[2021-04-19] MEDS: FOLIC ACID 1 MG TAB PO SCH (08:28)
[2021-04-19] MEDS: DORZOLAMIDE-TIMOLOL 2.23%/0.68 10ML BTL BOTH EYES SCH ×2 (08:29→20:38)
[2021-04-19] MEDS: methylPREDNISolone SOD SUCCI 125 MG/2 ML VIAL IV SCH (08:33)
[2021-04-19] MEDS: INSULIN ASPART (NovoLOG) 100 UNIT/ML VIAL SQ SCH ×5 (08:34→20:33)
[2021-04-19] MEDS: INSULIN DETEMIR (LEVEMIR) 100 UNIT/ML SYR SQ SCH ×2 (08:34→20:33)
[2021-04-19] MEDS: COLLAGENASE 250 UNIT/GM OINTMENT 30 GM TUBE TOPICAL SCH (08:37)
--- NOTE | 2021-04-19 10:36 | CDI ---
Documentation Clarification Form Date: 04/19/2021 10:13:44 AM From: Monica Shane RN, CDS Admit Date: 04/15/2021 08:44:00 PM Patient Name: Grace Retana Visit Number: [id number] Discharge Date: ATTENTION: The Clinical Documentation Specialists (CDI) and [facility] Coding Staff appreciate your assistance in clarifying documentation. Please respond to the clarification below the line at the bottom and electronically sign. The CDI & [facility] Coding staff will review the response and follow-up if needed. Please note: Queries are made part of the Legal Health Record. If you have any questions, please contact the author of this message via ITS. Dr. Natanael Chester Osteomyelitis is documented in the consult 04/16/21 and subsequent progress notes. Additional clarification regarding the cause and acuity of the osteomyelitis is requested. History/Risk Factors: Right heel pressure ulcer, coronary artery disease, Heart Failure, CVA, Diabetes Mellitus Chronic renal failure Clinical Indicators: 65-year-old female with chronic nonhealing pressure ulcer right heal area with MRI done on 04/09/2021 which was read as cellulitis with osteomyelitis at the posterior aspect of the calcaneus of the right foot. On presentation did have WBC 13.3, Creatinine 3.43, started on Rocephin 1 gm daily and vanconycin pharmacy to dose. Treatment: 04/18 Excisional debridement of right heel post debridement measurement is 3 x 2 x 0.5 Rocephin 1 GM IVPB Q 24 HRS Vancomycin PTD (DC) Santyl cream with dressing daily Please clarify the acuity and etiology of the osteomyelitis, if known: Acuity: [ ] Acute osteomyelitis [ ] Chronic osteomyelitis [ ] Subacute osteomyelitis [ ] Unable to Determine Cause: [ ] Viral (specify organism if know): [ ] Bacterial (specify organism if know): [ ] Diabetic [ ] Other (please specify): (Template Last Revised: August 2020) 2.Right heel osteomyelitis, acute, with MRSA, Pseudomonas and ESBL Proteus . Dictated By: Natanael Chester MD Signed By: ANA/ 40 TD/TT:04/21/21 [id number] MERYL
[2021-04-19] MEDS ORDERED: FUROSEMIDE 10 MG/ML 4 ML VIAL IV STA (11:00)
--- NOTE | 2021-04-19 11:00 | P.PN ---
Subjective Progress Note Date: 04/19/21 65-year-old female patient, debilitated due to a previous CVA as the patient has right-sided weakness, transferred from [facility] because of infection/sepsis. The patient is morbidly obese and she has a BMI of 43.0. She has chronic hypoxic and hypercapnic respiratory failure. The patient was found to be increasingly lethargic and she was having episodes of fever. Pro- calcitonin level was elevated. She was started on vancomycin. She has a large unstageable necrotic right heel wound which is obviously infected. Sed rate was elevated. MRI of the right foot was completed on 04/09/2021 and this was positive for osteomyelitis. For that reason, the patient was transferred to us. I was asked to evaluate the patient has the patient was quite lethargic and somnolent. She was a CO2 narcosis. The blood gases was done and it showed a pH of 7.27 with a pCO2 of 67 and pO2 of 95 and this was done and FiO2 of 3 L of oxygen by nasal cannula. Her BUN is at 107 with a creatinine of 3.7. White cell count is at 12 with a hemoglobin of 9.3. Platelet count is at 197. Sedimentation rate is 99. Her proBNP level was 1710. COVID-19 testing was negative. C. diff was negative. UA was abnormal and it was positive for white cells and there is potential gram-negative bacillus in the urine. The chest x- ray showed cardiomegaly and mild pulmonary vascular congestion. The patient is seen today 04/18/2021 in follow-up on the regular medical floor. She is currently resting in bed. Currently on BiPAP 14/6 and 40% FiO2. Urine culture positive for gram-negative bacilli. White count 9.1. Hemoglobin 10.0. Platelets 226. Sodium 138. Potassium 5.4. Creatinine 3.46. Glucose 218. she remains on IV site Medrol, bronchodilators, antibiotics in the form of ceftriaxone. Anticoagulated with Eliquis. On today's evaluation of 04/19/2021, the patient is being seen for a follow-up. The patient is a case of UTI/sepsis with hypercapnic respiratory failure. The patient was supported with BiPAP throughout the day yesterday and the pressure of 14/6 with an FiO2 of 35%. She did very well. She is wide awake and alert and she is responsive. She is communicating. Family is at the bedside. The patient was diagnosed having a gram-negative UTI with probably dementia and she is currently on the appropriate antibiotics. Her breathing is currently calm and comfortable. Her breathing is nonlabored. I took her off the BiPAP and put on 40/by nasal cannula. She was placed on IV Solu-Medrol which caused significant amount of hypoglycemia. This can be discontinued. She remains on R ocephin. She remains on bronchodilators. She has been on long-term and to coagulation with Eliquis. Her renal function is stable as the patient has chronic stage IV kidney disease. She also has a knee 1 infections in the right heel along with osteomyelitis. Infectious diseases on the case. Vasc surgeries on the case. Objective - Vital Signs Vital signs: Vital Signs Temp 97.7 F 04/19/21 07:15 Pulse 88 04/19/21 08:09 Resp 14 04/19/21 07:15 BP 159/80 04/19/21 07:15 Pulse Ox 99 04/19/21 07:15 Intake & Output 04/18/21 04/19/21 04/19/21 18:59 06:59 18:59 Intake Total 700 960 Output Total 1200 1000 1000 Balance - Intake: Oral 700 960 Output: Urine 1200 1000 1000 Uretheral (Vera) 1000 Other: Voiding Method Indwelling Catheter Indwelling Catheter # Bowel Movements 1 - Exam GENERAL EXAM: 65-year-old female patient, the patient is currentlyon BiPAP 14/6 at 40% FiO2. She is quite obtunded and she is obvious CO2 narcosis secondary to hypercapnic respiratory failure. She is arousable. Very much lethargic. Patient is morbidly obese, she has right-sided hemiparesis related to previous history of stroke, and chronic contracture of her right arm and hand. HEAD: Normocephalic/atraumatic. EYES: Normal reaction of pupils, equal size. Conjunctiva pink, sclera white. NOSE: Clear with pink turbinates. THROAT: No erythema or exudates. NECK: No masses, no JVD, no thyroid enlargement, no adenopathy. The patient has significant crowding of the posterior oropharynx and she has a Mallampati class IV CHEST: No chest wall deformity. Symmetrical expansion. LUNGS: Equal air entry with no crackles, wheeze, rhonchi or dullness. CVS: Regular rate and rhythm, normal S1 and S2, no gallops, no murmurs, no rubs ABDOMEN: Soft, nontender. No hepatosplenomegaly, normal bowel sounds, no guarding or rigidity. EXTREMITIES: No clubbing, no edema, no cyanosis, 2+ pulses and upper and lower extremities. MUSCULOSKELETAL: Patient has chronic right-sided hemiparesis, with chronic contractures of right hand, right arm related to previous history of stroke. Patient is bedbound on a regular basis, requires a Fany lift for transfers, and the patient has a stage IV/unstageable necrotic right heel wound with some foul- smelling discharge. SPINE: No scoliosis or deformity SKIN: No rashes CENTRAL NERVOUS SYSTEM: Patient is quite obtunded at this point in time, arousable, has chronic right-sided maisha-paresis. She withdraws to painful stimulation. - Labs CBC & Chem 7: 04/18/21 05:53 04/18/21 05:53 Labs: Abnormal Lab Results - Last 24 Hours (Table) 04/18/21 04/18/21 04/18/21 Range/Units 05:53 11:37 17:24 POC Glucose (mg/dL) 337 H 349 H (75-99) mg/dL Procalcitonin 1.56 H (0.02-0.09) ng/mL 04/18/21 04/18/21 04/19/21 Range/Units 21:02 21:03 07:30 POC Glucose (mg/dL) 411 H 399 H 415 H (75-99) mg/dL Procalcitonin (0.02-0.09) ng/mL Microbiology - Last 24 Hours (Table) 04/18/21 15:20 Gram Stain - Preliminary Heel - Right Tissue Culture - Preliminary 04/18/21 15:20 Gram Stain - Preliminary Foot - Right Wound Culture - Preliminary 04/18/21 15:20 Anaerobic Culture - Preliminary Heel - Right 04/18/21 15:20 Anaerobic Culture - Preliminary Heel - Right 04/15/21 18:58 Urine Culture - Final Urine,Voided Providencia alcalifaciens Assessment and Plan Plan: 1 altered mental status with CO2 narcosis and hypercapnic respiratory failure. The patient has an acute on top of chronic hypercapnic respiratory failure. Decompensating factor could be underlying infection/sepsis. The blood gas shows clearly a component of acute on top of chronic respiratory acidosis. The patient would benefit from noninvasive positive pressure ventilation.past 48 hours, the patient was treated with BiPAP at a pressure of 14/6 and she has done extremely well with improvement in mental status. She is currently alert and awake and communicating. I took her off the BiPAP and put out 4 L of oxygen by nasal cannula. 2 chronically infected/non-stage of a necrotic right heel with evidence of osteo myelitis based on the most recent MRI of the right foot that was done on 04/09/2021. 3 UTI with gram-negative bacteria, providencia 4 morbid obesity with chronic hypoxic and hypercapnic respiratory failure. The patient has significant features of obesity hypoventilation syndrome/obstructive sleep apnea. She has typical pickwickian features. 5 coronary artery disease 6 hypertensive heart disease with diastolic heart failure 7 diabetes mellitus type 2 maintained on insulin on outpatient basis 8 history of CVA with right-sided paralysis 9 gait dysfunction and general medical debility and the patient requires a Fany lift for transfer 10 chronic stage IV kidney disease 11 hypertension 12 previous history of pulmonary embolism/DVT and the patient has limited onset atrial fibrillation on a chronic basis with Eliquis 13 chronic anxiety set depression 14 [facility] resident 15 morbid obesity with BMI of 49 Plan Antibiotic per infectious disease. Give the patient does of Lasix 40 mg IV push taken off the BiPAP and put the patient on 4 L of oxygen by nasal cannulaantibiotic as a few hours time to reevaluate her acid base status This continued IV Solu-Medrol Continue anticoagulation with Eliquis Prognosis poor baseline above-mentioned comorbidities. getting of a [facility] machine at the [facility] where she [facility].. Plan:
--- NOTE | 2021-04-19 11:04 | CDI ---
Documentation Clarification Form Date: 04/19/2021 10:37:10 AM From: Monica Shane RN, CCDS Admit Date: 04/15/2021 08:44:00 PM Patient Name: Grace Retana Visit Number: [id number] Discharge Date: ATTENTION: The Clinical Documentation Specialists (CDI) and [facility] Coding Staff appreciate your assistance in clarifying documentation. Please respond to the clarification below the line at the bottom and electronically sign. The CDI & [facility] Coding staff will review the response and follow-up if needed. Please note: Queries are made part of the Legal Health Record. If you have any questions, please contact the author of this message via ITS. Dr. Natanael Chester A right heal pressure ulcer is documented in consul and subsequent progress notes Additional clarification regarding the stage of the pressure ulcer is requested. History/Risk Factors: coronary artery disease, Heart Failure, CVA, Diabetes Mellitus Chronic renal failure, Right heel pressure ulcer Clinical Indicators: 65-year-old female with chronic nonhealing pressure ulcer right heal area with MRI done on 04/09/2021 which was read as cellulitis with osteomyelitis at the posterior aspect of the calcaneus of the right foot Location: Right heal measuring 3 x2 x 0.5 per vascular preoperative diagnosis. Wound description: 04/17 progress note: Right heel with slough tissue, some surround redness. No drainage was noted 04/18 Procedure description documented some necrotic skin which was excised down to subcutaneous tissue. Treatment: 04/18 Excisional debridement of right heel post debridement measurement is 3 x 2 x 0.5 Rocephin 1 GM IVPB Q 24 HRS Vancomycin PTD (DC) Santyl cream with dressing daily Consults: Please clarify the stage of pressure ulcer, right heel, and etiology if known: [ ] Stage 1 Pressure Ulcer, right heel (etiology) [ ] Stage 2 Pressure Ulcer, right heel (etiology) [ ] Stage 3 Pressure Ulcer, right heel (etiology) [ ] Stage 4 Pressure Ulcer, right heel (etiology) [ ] Unstageable Pressure ulcer, right heel (etiology) [ ] Other condition, please specify [ ] Unable to determine Clinical Definitions: Stage 1 Pressure Ulcer: intact skin, non-blanching redness of local area Stage 2 Pressure Ulcer: Partial thickness, loss of dermis, pink wound bed Stage 3 Pressure Ulcer: Full thickness tissue loss Stage 4 Pressure Ulcer: Full thickness tissue loss with exposed bone, tendon, or muscle. Unstageable pressure ulcer: Full thickness tissue loss in which the base of the ulcer is covered by slough (yellow, estrada, zarate, green or brown) and/or eschar (estrada, brown or black) in the wound bed. (Template Last Revised: August 2020) 2.Patient with right heel infected pressure ulcer, stage IV, with underlying diabetes.Culture positive for Pseudomonas, MRSA, Proteus, ESBL. Dictated By: Natanael Chester MD Signed By: ANA/ 1300 TD/TT:04/22/21 1522 MERYL
[2021-04-19 11:05] LABS: African American GFR (CKD) 19 (>60 ml/min/1.73 sqM); Anion Gap 10 mmol/L; Calcium 7.9 mg/dL (8.4-10.2); Carbon Dioxide 26 mmol/L (22-30); Chloride 100 mmol/L (98-107); Glucose 485 mg/dL (74-99); Non-African American GFR(CKD) 16 (>60 ml/min/1.73 sqM); Potassium 4.9 mmol/L (3.5-5.1); Sodium 136 mmol/L (137-145)
[2021-04-19 11:12] LABS: Blood Urea Nitrogen 140 mg/dL (7-17)
[2021-04-19] MEDS: FLUOROMETHOLONE 0.1% OPHTH DROPS 5 ML BTL RIGHT EYE SCH (11:54)
[2021-04-19 12:00] LABS: ABG Base Excess 5.2 mmol/L; ABG HCO3 30 mmol/L (21-25); ABG Oxygen Saturation 92.1 % (94-97); ABG PCO2 52 mmHg (35-45); ABG PH 7.38 (7.35-7.45); ABG PO2 72 mmHg (83-108); ABG TCO2 32 mmol/L (19-24); Allen Test Performed? Yes
[2021-04-19 12:10] LABS: Glucose,Whole Blood 450 mg/dL (75-99)
--- NOTE | 2021-04-19 13:35 | PN ---
PROGRESS NOTE The patient is being seen for followup for chronic kidney disease, NKF stage 4-5, baseline creatinine around 2.1-2.4 mg/dL. Patient was admitted to the hospital with fever. She is found to have underlying urinary tract infection. She had mental status changes related to CO2 narcosis. This has improved with BiPAP. The patient is also on Motrin which is now discontinued. Renal function has improved with creatinine down to 2.9. BUN, however, is disproportionately elevated and is currently up to 140. Patient was maintained on IV steroids which are now discontinued. She has a chronic indwelling Vera catheter with good urine output. PHYSICAL EXAMINATION: On examination today, blood pressure is 149/76, heart rate 90 per minute. She is afebrile. Examination of the heart S1, S2. Examination of the lungs, bilateral breath sounds are heard. Abdomen is soft, nontender, obese. Examination of lower extremities shows bilateral legs to be wrapped. Edema is noted in the thighs. [employer] exam grossly intact. LAB: Show sodium 136, potassium 4.9, chloride 100, BUN 140, creatinine 2.9, hemoglobin 10.0 g/dL. ASSESSMENT: 1. Chronic kidney disease, NKF stage 4 with baseline creatinine 2.1-2.4 mg/dL. Etiology nephrosclerosis and diabetic kidney disease. 2. Acute kidney injury multifactorial including possible vancomycin toxicity and NSAIDs. Vancomycin is currently discontinued. The patient is has an indwelling Vera catheter with good urine output. Serum creatinine has improved. BUN is disproportionately elevated secondary to steroids. 3. Disproportionately elevated BUN secondary to steroids, now discontinued. 4. Right foot osteomyelitis, status post I and D, status post antibiotics as outpatient. 5. Altered mentation secondary to CO2 narcosis, now improved. 6. History of cerebrovascular accident. 7. History of pulmonary embolism. 8. Obstructive sleep apnea. 9. Urinary tract infection with urine culture growing Providencia alcalifaciens with chronic indwelling Vera catheter. PLAN: Repeat labs in a.m. Encourage increased oral intake and continue antibiotics for UTI. Okay to start gentle diuresis. MMODL / IJN: [id number] /
[2021-04-19] MEDS: ACETAMINOPHEN TAB 325 MG TAB PO PRN (14:36)
--- NOTE | 2021-04-19 16:40 | P.PN ---
Subjective Progress Note Date: 04/18/21 Principal diagnosis: Altered mental status/CO2 narcosis Acute on chronic hypercapnic respiratory failure Right heel ulcers/osteomyelitis UTI with gram-negative bacteria Acute on chronic kidney disease stage IV 65 year old female with past history of stroke and right-sided weakness, CAD/CHF, diabetes mellitus, hypertension, PE/DVT, who presents to [facility] from her extended care facility. Patient was having increased lethargy and fever. At their facility patient underwent laboratory studies and a chest x-ray. She was found have a white count of 17.6. Hemoglobin 9.4. Creatinine was 3.3. CMP greater than 270 and procalcitonin 1.9. She had an MRI done at our facility on the which was positive for osteomyelitis of the right heel. Patient did not appear to be on any antibiotics. At [facility] she was started on vancomycin. They requested transfer for infectious disease consult. Patient appears fatigued however able to answer most questions. Denies being any pain. She has a history of chronic kidney disease however kidney function was found to be worse today. Workup in ED with blood work reveals a WBC of 16.9, hemoglobin of 9.7, hematocrit 33.5 and platelet count of 194, sodium 137, potassium 5.2, BUN/creat inine markedly elevated at 95/3.31; UA is positive; MRI done and reviewed in ED reveals osteomyelitis 04/17/2021 Patient is seen and evaluated with nursing staff. Patient is currently extremely lethargic and responding only to sternal rub. Darlene signs are reviewed and remain stable. O2 saturation is between 89-90%/. Stat CT of head ordered without contrast, labs ordered including ammonia level. Stat ABG ; serial troponins; ABG are reviewed and reveal CO2 of 67. Floor nurse called and patient placed on BIPAP. Chest X ray reviewed which is unremarkable. Medication reviewed and all sedating medications are placed on hold. Pulmonary consult placed. 04/18/2021 Patient is seen and evaluated in room with daughter at bedside. She is currently resting in bed. Patient remains on BiPAP and does open eyes on verbal stimulation; Currently on BiPAP 14/6 and 40% FiO2. Vital signs are reviewed with temperature 97.7, pulse 88, respiration 14 and blood pressure 159/80 Lab review shows Urine culture positive for gram-negative bacilli. White count 9.1. Hemoglobin 10.0. Platelets 226. Sodium 138. Potassium 5.4. Creatinine 3.46. Glucose 218. she remains on IV site Medrol, bronchodilators, antibiotics in the form of ceftriaxone. Anticoagulated with Eliquis. ID on board recommending to continue with Rocephin for gram-negative UTI/procid entia; nephrology following for acute kidney injury Objective - Vital Signs Vital signs: Vital Signs Temp 98.3 F 04/18/21 11:30 Pulse 84 04/18/21 11:53 Resp 18 04/18/21 11:30 BP 190/70 04/18/21 11:30 Pulse Ox 90 L 04/18/21 11:30 Intake & Output 04/17/21 04/18/21 04/18/21 18:59 06:59 18:59 Intake Total 300 240 Output Total 300 1000 Balance -300 -700 240 Intake: Oral 300 240 Output: Urine 300 1000 Other: Voiding Method Indwelling Catheter Indwelling Catheter - Exam PHYSICAL EXAMINATION: GENERAL: The patient is alert and oriented x3, not in any acute distress. Well developed, well nourished. HEENT: Pupils are round and equally reacting to light. EOMI. No scleral icterus. No conjunctival pallor. Normocephalic, atraumatic. No pharyngeal erythema. No thyromegaly. CARDIOVASCULAR: S1 and S2 present. No murmurs, rubs, or gallops. PULMONARY: Chest is clear to auscultation, no wheezing or crackles. ABDOMEN: Soft, nontender, nondistended, normoactive bowel sounds. No palpable organomegaly. MUSCULOSKELETAL: No joint swelling or deformity. EXTREMITIES: No cyanosis, clubbing, or pedal edema. NEUROLOGICAL: Gross neurological examination did not reveal any focal deficits. SKIN: No rashes. - Labs CBC & Chem 7: 04/18/21 05:53 04/19/21 10:24 Labs: Abnormal Lab Results - Last 24 Hours (Table) 04/17/21 04/17/21 04/17/21 Range/Units 08:38 08:38 14:58 RBC (3.80-5.40) m/uL Hgb (11.4-16.0) gm/dL MCV (80.0-100.0) fL MCHC (31.0-37.0) g/dL RDW (11.5-15.5) % Neutrophils # (1.3-7.7) k/uL Lymphocytes # (1.0-4.8) k/uL ESR 99 H (0-20) mm/hr ABG pH (7.35-7.45) ABG pCO2 (35-45) mmHg ABG HCO3 (21-25) mmol/L ABG Total CO2 (19-24) mmol/L Potassium (3.5-5.1) mmol/L BUN (7-17) mg/dL Creatinine (0.52-1.04) mg/dL Glucose (74-99) mg/dL POC Glucose (mg/dL) 194 H (75-99) mg/dL Calcium (8.4-10.2) mg/dL C-Reactive Protein 41.7 H (<1.0) mg/dL 04/17/21 04/17/21 04/17/21 Range/Units 16:05 17:06 21:00 RBC (3.80-5.40) m/uL Hgb (11.4-16.0) gm/dL MCV (80.0-100.0) fL MCHC (31.0-37.0) g/dL RDW (11.5-15.5) % Neutrophils # (1.3-7.7) k/uL Lymphocytes # (1.0-4.8) k/uL ESR (0-20) mm/hr ABG pH 7.27 L (7.35-7.45) ABG pCO2 67 H (35-45) mmHg ABG HCO3 31 H (21-25) mmol/L ABG Total CO2 33 H (19-24) mmol/L Potassium (3.5-5.1) mmol/L BUN (7-17) mg/dL Creatinine (0.52-1.04) mg/dL Glucose (74-99) mg/dL POC Glucose (mg/dL) 155 H 117 H (75-99) mg/dL Calcium (8.4-10.2) mg/dL C-Reactive Protein (<1.0) mg/dL 04/18/21 04/18/21 04/18/21 Range/Units 05:53 05:53 07:13 RBC 3.54 L (3.80-5.40) m/uL Hgb 10.0 L (11.4-16.0) gm/dL MCV 101.5 H (80.0-100.0) fL MCHC 27.7 L (31.0-37.0) g/dL RDW 17.0 H (11.5-15.5) % Neutrophils # 8.1 H (1.3-7.7) k/uL Lymphocytes # 0.7 L (1.0-4.8) k/uL ESR (0-20) mm/hr ABG pH (7.35-7.45) ABG pCO2 (35-45) mmHg ABG HCO3 (21-25) mmol/L ABG Total CO2 (19-24) mmol/L Potassium 5.4 H (3.5-5.1) mmol/L BUN 117 H* (7-17) mg/dL Creatinine 3.46 H (0.52-1.04) mg/dL Glucose 218 H (74-99) mg/dL POC Glucose (mg/dL) 216 H (75-99) mg/dL Calcium 8.2 L (8.4-10.2) mg/dL C-Reactive Protein 36.4 H (<1.0) mg/dL 04/18/21 Range/Units 11:37 RBC (3.80-5.40) m/uL Hgb (11.4-16.0) gm/dL MCV (80.0-100.0) fL MCHC (31.0-37.0) g/dL RDW (11.5-15.5) % Neutrophils # (1.3-7.7) k/uL Lymphocytes # (1.0-4.8) k/uL ESR (0-20) mm/hr ABG pH (7.35-7.45) ABG pCO2 (35-45) mmHg ABG HCO3 (21-25) mmol/L ABG Total CO2 (19-24) mmol/L Potassium (3.5-5.1) mmol/L BUN (7-17) mg/dL Creatinine (0.52-1.04) mg/dL Glucose (74-99) mg/dL POC Glucose (mg/dL) 337 H (75-99) mg/dL Calcium (8.4-10.2) mg/dL C-Reactive Protein (<1.0) mg/dL Assessment and Plan Assessment: 1. Osteomyelitis right heel - MRI of the foot reveals osteomyelitis; patient has been placed on IV vancomycin; blood cultures and wound cultures are obtained and pending - Infectious disease is consulted for further recommendations on IV antibiotics and duration of treatment 2. Leukocytosis/sepsis; related to UTI/osteomyelitis - Patient has been placed on Rocephin 1 g IV daily and vancomycin - Blood cultures and urine cultures are obtained and pending; we will monitor CBC, CRP and for calcitonin 3. Profound UTI; patient received Rocephin 1 g IV daily; we will plan to continue current antibiotics at this time with further changes pending culture results 4. Acute on chronic kidney disease; slow IV fluid hydration with normal saline at a rate of 75 mL an hour; we will monitor strict BOLA's, daily weights, renal function and electrolytes; avoid nephrotoxin agents and hypotension 5. Hypertension; Coreg 3.125 mg twice a day 6. Diabetes mellitus controlled with insulin; continue with Lantus 50 units subcu twice a day; we will monitor Accu-Cheks before meals and at bedtime with insulin sliding scale 7. 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 CAD/CHF; stable on aspirin 81 mg daily, beta blockers Coreg 3.125 mg twice a day and statin therapy; hold off on diuretic therapy due to acute renal injury 9. Hyperlipidemia; Lipitor 20 mg by mouth daily at bedtime DVT prophylaxis; SCDs/systemic anticoagulation CODE STATUS; DO NOT RESUSCITATE
[2021-04-19] MEDS: MAGNESIUM OXIDE 400 MG TAB PO SCH (16:57)
[2021-04-19] MEDS: levETIRAcetam 250 MG TAB PO SCH (16:57)
[2021-04-19 17:37] LABS: Glucose,Whole Blood 456 mg/dL (75-99)
[2021-04-19] MEDS: LIDOCAINE 5% PATCH TOPICAL SCH (17:41)
[2021-04-19 20:14] LABS: Glucose,Whole Blood 456 mg/dL (75-99)
[2021-04-19 20:14] LABS: Glucose,Whole Blood 496 mg/dL (75-99)
[2021-04-19] MEDS: ATORVASTATIN 20 MG TAB PO SCH (20:32)
[2021-04-19] MEDS: MELATONIN 5 MG TABLET PO SCH (20:32)
[2021-04-19] MEDS: LATANOPROST 0.005% OPHTH DROPS 2.5 ML BTL BOTH EYES SCH (20:41)
--- NOTE | 2021-04-19 22:59 | PN ---
PROGRESS NOTE DATE OF SERVICE: 04/19/2021 REASON FOR FOLLOWUP: 1. Urinary tract infection. 2. Right heel infected pressure ulcer. INTERVAL HISTORY: The patient is afebrile. The patient is more awake and alert today. She is breathing comfortably. No chest pain, shortness of breath or cough. No abdominal pain or any worsening pain to the right heel area. PHYSICAL EXAMINATION: Blood pressure 167/78 with a pulse of 80, temperature of 97.9. She is 97% on 4 L nasal cannula. General description is a middle-aged female lying in bed in no distress. RESPIRATORY SYSTEM: Unlabored breathing. Clear to auscultation anteriorly. HEART: S1, S2. Regular rate and rhythm. ABDOMEN: Soft. No tenderness. EXTREMITIES: No edema of the feet. LABS: Creatinine is 2.92. Tissue and wound cultures are currently pending. DIAGNOSTIC IMPRESSION AND PLAN: 1. Patient with Providencia urinary tract infection, covered with Rocephin; to continue. 2. Patient with a right heel infected pressure ulcer, status post debridement and tissue biopsy. Those cultures are pending. That will determine her discharge antibiotics. Sister at the bedside. Questions were answered. MMODL / IJN: [id number] /
[2021-04-20 06:49] LABS: Glucose,Whole Blood 354 mg/dL (75-99)
[2021-04-20] MEDS: ALBUTEROL NEBULIZED 2.5 MG/3 ML INHALATION SCH ×4 (07:21→19:25)
[2021-04-20] MEDS: DORZOLAMIDE-TIMOLOL 2.23%/0.68 10ML BTL BOTH EYES SCH ×2 (08:00→20:53)
[2021-04-20] MEDS: carvediloL 3.125 MG TAB PO SCH ×2 (08:23→17:48)
[2021-04-20] MEDS: APIXABAN 2.5 MG TABLET PO SCH ×2 (08:23→17:48)
[2021-04-20] MEDS: FOLIC ACID 1 MG TAB PO SCH (08:23)
[2021-04-20] MEDS: FUROSEMIDE 10 MG/ML 4 ML VIAL IV SCH (08:24)
[2021-04-20] MEDS: PANTOPRAZOLE 40 MG TABLET PO SCH (08:24)
[2021-04-20] MEDS: allopurinoL 100 MG TAB PO SCH (08:24)
[2021-04-20] MEDS: LORATADINE 10 MG TAB PO SCH (08:24)
[2021-04-20] MEDS: INSULIN ASPART (NovoLOG) 100 UNIT/ML VIAL SQ SCH ×7 (08:25→20:51)
[2021-04-20] MEDS: INSULIN DETEMIR (LEVEMIR) 100 UNIT/ML SYR SQ SCH ×2 (08:26→20:51)
--- NOTE | 2021-04-20 09:50 | P.PN ---
Progress Note - Text 65-year-old white female, patient had a chronic wound on the plantar aspect we did the debridement culture came back Present of MRSA present gram-negative bacilli patient is under care of infectious disease. We been treating with the Sentell cream which should be continued change dressing daily
[2021-04-20 11:37] LABS: Glucose,Whole Blood 343 mg/dL (75-99)
[2021-04-20] MEDS: COLLAGENASE 250 UNIT/GM OINTMENT 30 GM TUBE TOPICAL SCH (12:55)
--- NOTE | 2021-04-20 12:56 | P.PN ---
Subjective Progress Note Date: 04/20/21 65-year-old female patient, debilitated due to a previous CVA as the patient has right-sided weakness, transferred from [facility] because of infection/sepsis. The patient is morbidly obese and she has a BMI of 43.0. She has chronic hypoxic and hypercapnic respiratory failure. The patient was found to be increasingly lethargic and she was having episodes of fever. Pro- calcitonin level was elevated. She was started on vancomycin. She has a large unstageable necrotic right heel wound which is obviously infected. Sed rate was elevated. MRI of the right foot was completed on 04/09/2021 and this was positive for osteomyelitis. For that reason, the patient was transferred to us. I was asked to evaluate the patient has the patient was quite lethargic and somnolent. She was a CO2 narcosis. The blood gases was done and it showed a pH of 7.27 with a pCO2 of 67 and pO2 of 95 and this was done and FiO2 of 3 L of oxygen by nasal cannula. Her BUN is at 107 with a creatinine of 3.7. White cell count is at 12 with a hemoglobin of 9.3. Platelet count is at 197. Sedimentation rate is 99. Her proBNP level was 1710. COVID-19 testing was negative. C. diff was negative. UA was abnormal and it was positive for white cells and there is potential gram-negative bacillus in the urine. The chest x- ray showed cardiomegaly and mild pulmonary vascular congestion. The patient is seen today 04/18/2021 in follow-up on the regular medical floor. She is currently resting in bed. Currently on BiPAP 14/6 and 40% FiO2. Urine culture positive for gram-negative bacilli. White count 9.1. Hemoglobin 10.0. Platelets 226. Sodium 138. Potassium 5.4. Creatinine 3.46. Glucose 218. she remains on IV site Medrol, bronchodilators, antibiotics in the form of ceftriaxone. Anticoagulated with Eliquis. On today's evaluation of 04/19/2021, the patient is being seen for a follow-up. The patient is a case of UTI/sepsis with hypercapnic respiratory failure. The patient was supported with BiPAP throughout the day yesterday and the pressure of 14/6 with an FiO2 of 35%. She did very well. She is wide awake and alert and she is responsive. She is communicating. Family is at the bedside. The patient was diagnosed having a gram-negative UTI with probably dementia and she is currently on the appropriate antibiotics. Her breathing is currently calm and comfortable. Her breathing is nonlabored. I took her off the BiPAP and put on 40/by nasal cannula. She was placed on IV Solu-Medrol which caused significant amount of hypoglycemia. This can be discontinued. She remains on R ocephin. She remains on bronchodilators. She has been on long-term and to coagulation with Eliquis. Her renal function is stable as the patient has chronic stage IV kidney disease. She also has a knee 1 infections in the right heel along with osteomyelitis. Infectious diseases on the case. Vasc surgeries on the case. 04/20/2021 the patient is awake and alert the patient is not having any re spiratory distress.On oxygen by nasal cannula with an FiO2 of 32%. PH is 7.38 with a pCO2 of 52 and pO2 of 72 which was significant improvement and acid base status. The patient is also being done the Lasix. Creatinine is down 2.9. the BUN is at 140. Sodium is at 136. Urine culture has been completed and the patient has providencia urine culture. The same time, the patient had wound cultures growing gram-negative bacillus and MRSA. Patient is on antibiotic coverage and the patient is currently on IV Rocephin. Infectious disease currently on the case. No signs of any respiratory distress for now. Objective - Vital Signs Vital signs: Vital Signs Temp 97.9 F 04/20/21 11:52 Pulse 66 04/20/21 11:52 Resp 18 04/20/21 11:52 BP 143/70 04/20/21 11:52 Pulse Ox 100 04/20/21 04:26 Intake & Output 04/19/21 04/20/21 04/20/21 18:59 06:59 18:59 Intake Total 750 300 330 Output Total 1000 1000 Balance -250 -700 330 Weight 99.79 kg Intake: Oral 750 300 330 Output: Urine 1000 1000 Uretheral (Vera) 1000 Other: Voiding Method Indwelling Catheter Indwelling Catheter Indwelling Catheter - Exam GENERAL EXAM: 65-year-old female patient, the patient is currentlyon BiPAP 14/6 at 40% FiO2. She is quite obtunded and she is obvious CO2 narcosis secondary to hypercapnic respiratory failure. She is arousable. Very much lethargic. Patient is morbidly obese, she has right-sided hemiparesis related to previous history of stroke, and chronic contracture of her right arm and hand. HEAD: Normocephalic/atraumatic. EYES: Normal reaction of pupils, equal size. Conjunctiva pink, sclera white. NOSE: Clear with pink turbinates. THROAT: No erythema or exudates. NECK: No masses, no JVD, no thyroid enlargement, no adenopathy. The patient has significant crowding of the posterior oropharynx and she has a Mallampati class IV CHEST: No chest wall deformity. Symmetrical expansion. LUNGS: Equal air entry with no crackles, wheeze, rhonchi or dullness. CVS: Regular rate and rhythm, normal S1 and S2, no gallops, no murmurs, no rubs ABDOMEN: Soft, nontender. No hepatosplenomegaly, normal bowel sounds, no guarding or rigidity. EXTREMITIES: No clubbing, no edema, no cyanosis, 2+ pulses and upper and lower extremities. MUSCULOSKELETAL: Patient has chronic right-sided hemiparesis, with chronic contractures of right hand, right arm related to previous history of stroke. Patient is bedbound on a regular basis, requires a Fany lift for transfers, and the patient has a stage IV/unstageable necrotic right heel wound with some foul- smelling discharge. SPINE: No scoliosis or deformity SKIN: No rashes CENTRAL NERVOUS SYSTEM: Patient is quite obtunded at this point in time, arousable, has chronic right-sided maisha-paresis. She withdraws to painful stimulation. - Labs CBC & Chem 7: 04/18/21 05:53 04/19/21 10:24 Labs: Abnormal Lab Results - Last 24 Hours (Table) 04/19/21 04/19/21 04/19/21 Range/Units 17:36 20:10 20:12 POC Glucose (mg/dL) 456 H 496 H 456 H (75-99) mg/dL 04/20/21 04/20/21 Range/Units 06:47 11:36 POC Glucose (mg/dL) 354 H 343 H (75-99) mg/dL Microbiology - Last 24 Hours (Table) 04/18/21 15:20 Gram Stain - Preliminary Foot - Right Wound Culture - Preliminary Gram Neg Bacilli Presumptive Staph aureus 04/18/21 15:20 Gram Stain - Preliminary Heel - Right Tissue Culture - Preliminary Presumptive MRSA Gram Neg Bacilli Diphtheroid species Assessment and Plan Plan: 1 altered mental status with CO2 narcosis and hypercapnic respiratory failure. The patient has an acute on top of chronic hypercapnic respiratory failure. Decompensating factor could be underlying infection/sepsis. The patient is improvement in the follow-up blood gases showed improvement and acid base status. Currently she is on 4 liters by nasal cannula. Clinically the patient is improving. Awake and alert and there are no signs of CO2 narcosis. 2 chronically infected/non-stage of a necrotic right heel with evidence of osteomyelitis based on the most recent MRI of the right foot that was done on 04/09/2021. 3 UTI with gram-negative bacteria, providencia 4 morbid obesity with chronic hypoxic and hypercapnic respiratory failure. The patient has significant features of obesity hypoventilation syndrome/obstructive sleep apnea. She has typical pickwickian features. 5 coronary artery disease 6 hypertensive heart disease with diastolic heart failure 7 diabetes mellitus type 2 maintained on insulin on outpatient basis 8 history of CVA with right-sided paralysis 9 gait dysfunction and general medical debility and the patient requires a Fany lift for transfer 10 chronic stage IV kidney disease 11 hypertension 12 previous history of pulmonary embolism/DVT and the patient has limited onset atrial fibrillation on a chronic basis with Eliquis 13 chronic anxiety set depression 14 long-term resident 15 morbid obesity with BMI of 49 Plan Antibiotic per infectious disease. Continue Lasix BiPAP overnight No need for Solu-Medrol Continue anticoagulation with Eliquis Prognosis poor baseline above-mentioned comorbidities. getting of a BiPAP machine at the long-term where she resides.. We'll sign off the case and we'll see the patient as-needed basis.
[2021-04-20] MEDS: FLUOROMETHOLONE 0.1% OPHTH DROPS 5 ML BTL RIGHT EYE SCH (12:59)
--- NOTE | 2021-04-20 15:50 | P.PN ---
Subjective Progress Note Date: 04/19/21 Principal diagnosis: Altered mental status/CO2 narcosis Acute on chronic hypercapnic respiratory failure Right heel ulcers/osteomyelitis UTI with gram-negative bacteria Acute on chronic kidney disease stage IV 65 year old female with past history of stroke and right-sided weakness, CAD/CHF, diabetes mellitus, hypertension, PE/DVT, who presents to [facility] from her extended care facility. Patient was having increased lethargy and fever. At their facility patient underwent laboratory studies and a chest x-ray. She was found have a white count of 17.6. Hemoglobin 9.4. Creatinine was 3.3. CMP greater than 270 and procalcitonin 1.9. She had an MRI done at our facility on the which was positive for osteomyelitis of the right heel. Patient did not appear to be on any antibiotics. At [facility] she was started on vancomycin. They requested transfer for infectious disease consult. Patient appears fatigued however able to answer most questions. Denies being any pain. She has a history of chronic kidney disease however kidney function was found to be worse today. Workup in ED with blood work reveals a WBC of 16.9, hemoglobin of 9.7, hematocrit 33.5 and platelet count of 194, sodium 137, potassium 5.2, BUN/creat inine markedly elevated at 95/3.31; UA is positive; MRI done and reviewed in ED reveals osteomyelitis 04/17/2021 Patient is seen and evaluated with nursing staff. Patient is currently extremely lethargic and responding only to sternal rub. Darlene signs are reviewed and remain stable. O2 saturation is between 89-90%/. Stat CT of head ordered without contrast, labs ordered including ammonia level. Stat ABG ; serial troponins; ABG are reviewed and reveal CO2 of 67. Floor nurse called and patient placed on BIPAP. Chest X ray reviewed which is unremarkable. Medication reviewed and all sedating medications are placed on hold. Pulmonary consult placed. 04/18/2021 Patient is seen and evaluated in room with daughter at bedside. She is currently resting in bed. Patient remains on BiPAP and does open eyes on verbal stimulation; Currently on BiPAP 14/6 and 40% FiO2. Vital signs are reviewed with temperature 97.7, pulse 88, respiration 14 and blood pressure 159/80 Lab review shows Urine culture positive for gram-negative bacilli. White count 9.1. Hemoglobin 10.0. Platelets 226. Sodium 138. Potassium 5.4. Creatinine 3.46. Glucose 218. she remains on IV site Medrol, bronchodilators, antibiotics in the form of ceftriaxone. Anticoagulated with Eliquis. ID on board recommending to continue with Rocephin for gram-negative UTI/procid entia; nephrology following for acute kidney injury 04/19/2021 Patient is seen and evaluated at bedside; sitting up in bed and is awake and alert; daughter is present at bedside Vital signs are stable temperature pulse 66, respiration 18 and blood pressure 146 units Patient is being treated for UTI/sepsis with hypercapnic respiratory failure; gram-negative UTI with probably dementia and she is currently on the appropriate antibiotics. Patient has been taking off the BiPAP with pulmonary service and put on 40 liters per nasal cannula. She was placed on IV Solu-Medrol which caused significant amount of hypoglycemia and has been discontinued by pulmonary service. She remains on Rocephin. She remains on bronchodilators. She has been on long-term and to coagulation with Eliquis. Her renal function is stable as the patient has chronic stage IV kidney disease. She also has a knee 1 infections in the right heel along with osteomyelitis. Infectious diseases on the case. [facility] surgeries on the case for wound debridement and deep tissue cultures Objective - Vital Signs Vital signs: Vital Signs Temp 98.3 F 04/19/21 11:00 Pulse 90 04/19/21 11:27 Resp 15 04/19/21 11:00 BP 149/76 04/19/21 11:00 Pulse Ox 94 L 04/19/21 12:45 Intake & Output 04/18/21 04/19/21 04/19/21 18:59 06:59 18:59 Intake Total 700 960 Output Total 1200 1000 1000 Balance - Intake: Oral 700 960 Output: Urine 1200 1000 1000 Uretheral (Vera) 1000 Other: Voiding Method Indwelling Catheter Indwelling Catheter # Bowel Movements 1 - Exam PHYSICAL EXAMINATION: GENERAL: The patient is alert and oriented x3, not in any acute distress. Well developed, well nourished. HEENT: Pupils are round and equally reacting to light. EOMI. No scleral icterus. No conjunctival pallor. Normocephalic, atraumatic. No pharyngeal erythema. No thyromegaly. CARDIOVASCULAR: S1 and S2 present. No murmurs, rubs, or gallops. PULMONARY: Chest is clear to auscultation, no wheezing or crackles. ABDOMEN: Soft, nontender, nondistended, normoactive bowel sounds. No palpable organomegaly. MUSCULOSKELETAL: No joint swelling or deformity. EXTREMITIES: No cyanosis, clubbing, or pedal edema. NEUROLOGICAL: Gross neurological examination did not reveal any focal deficits. SKIN: No rashes. - Labs CBC & Chem 7: 04/18/21 05:53 04/19/21 10:24 Labs: Abnormal Lab Results - Last 24 Hours (Table) 04/18/21 04/18/21 04/18/21 Range/Units 05:53 17:24 21:02 ABG pCO2 (35-45) mmHg ABG pO2 (83-108) mmHg ABG HCO3 (21-25) mmol/L ABG Total CO2 (19-24) mmol/L ABG O2 Saturation (94-97) % Sodium (137-145) mmol/L BUN (7-17) mg/dL Creatinine (0.52-1.04) mg/dL Glucose (74-99) mg/dL POC Glucose (mg/dL) 349 H 411 H (75-99) mg/dL Calcium (8.4-10.2) mg/dL Procalcitonin 1.56 H (0.02-0.09) ng/mL 04/18/21 04/19/21 04/19/21 Range/Units 21:03 07:30 10:24 ABG pCO2 (35-45) mmHg ABG pO2 (83-108) mmHg ABG HCO3 (21-25) mmol/L ABG Total CO2 (19-24) mmol/L ABG O2 Saturation (94-97) % Sodium 136 L (137-145) mmol/L BUN 140 H* (7-17) mg/dL Creatinine 2.92 H (0.52-1.04) mg/dL Glucose 485 H (74-99) mg/dL POC Glucose (mg/dL) 399 H 415 H (75-99) mg/dL Calcium 7.9 L (8.4-10.2) mg/dL Procalcitonin (0.02-0.09) ng/mL 04/19/21 04/19/21 Range/Units 11:54 12:07 ABG pCO2 52 H (35-45) mmHg ABG pO2 72 L (83-108) mmHg ABG HCO3 30 H (21-25) mmol/L ABG Total CO2 32 H (19-24) mmol/L ABG O2 Saturation 92.1 L (94-97) % Sodium (137-145) mmol/L BUN (7-17) mg/dL Creatinine (0.52-1.04) mg/dL Glucose (74-99) mg/dL POC Glucose (mg/dL) 450 H (75-99) mg/dL Calcium (8.4-10.2) mg/dL Procalcitonin (0.02-0.09) ng/mL Microbiology - Last 24 Hours (Table) 04/18/21 15:20 Gram Stain - Preliminary Heel - Right Tissue Culture - Preliminary 04/18/21 15:20 Gram Stain - Preliminary Foot - Right Wound Culture - Preliminary 04/18/21 15:20 Anaerobic Culture - Preliminary Heel - Right 04/18/21 15:20 Anaerobic Culture - Preliminary Heel - Right 04/15/21 18:58 Urine Culture - Final Urine,Voided Providencia alcalifaciens Assessment and Plan Assessment: 1. Osteomyelitis right heel - MRI of the foot reveals osteomyelitis; patient has been placed on IV vancomycin; blood cultures and wound cultures are obtained and pending - Infectious disease is consulted for further recommendations on IV antibiotics and duration of treatment 2. Leukocytosis/sepsis; related to UTI/osteomyelitis - Patient has been placed on Rocephin 1 g IV daily and vancomycin - Blood cultures and urine cultures are obtained and pending; we will monitor CBC, CRP and for calcitonin 3. Profound UTI; patient received Rocephin 1 g IV daily; we will plan to continue current antibiotics at this time with further changes pending culture results 4. Acute on chronic kidney disease; slow IV fluid hydration with normal saline at a rate of 75 mL an hour; we will monitor strict BOLA's, daily weights, renal function and electrolytes; avoid nephrotoxin agents and hypotension 5. Hypertension; Coreg 3.125 mg twice a day 6. Diabetes mellitus controlled with insulin; continue with Lantus 50 units subcu twice a day; we will monitor Accu-Cheks before meals and at bedtime with insulin sliding scale 7. 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 CAD/CHF; stable on aspirin 81 mg daily, beta blockers Coreg 3.125 mg twice a day and statin therapy; hold off on diuretic therapy due to acute renal injury 9. Hyperlipidemia; Lipitor 20 mg by mouth daily at bedtime DVT prophylaxis; SCDs/systemic anticoagulation CODE STATUS; DO NOT RESUSCITATE
--- NOTE | 2021-04-20 16:50 | P.PN ---
Subjective Progress Note Date: 04/20/21 Follow-up for acute kidney injury. Objective - Vital Signs Vital signs: Vital Signs Temp 97.9 F 04/20/21 11:52 Pulse 80 04/20/21 15:46 Resp 18 04/20/21 11:52 BP 143/70 04/20/21 11:52 Pulse Ox 100 04/20/21 04:26 Intake & Output 04/19/21 04/20/21 04/20/21 18:59 06:59 18:59 Intake Total 750 300 330 Output Total 1000 1000 Balance -250 -700 330 Weight 99.79 kg Intake: Oral 750 300 330 Output: Urine 1000 1000 Uretheral (Vera) 1000 Other: Voiding Method Indwelling Catheter Indwelling Catheter Indwelling Catheter - Exam No acute distress S1-S2 heard Lungs clear trace edema - Labs CBC & Chem 7: 04/18/21 05:53 04/19/21 10:24 Labs: Abnormal Lab Results - Last 24 Hours (Table) 04/19/21 04/19/21 04/19/21 Range/Units 17:36 20:10 20:12 POC Glucose (mg/dL) 456 H 496 H 456 H (75-99) mg/dL Hemoglobin A1c (4.0-6.0) % 04/20/21 04/20/21 04/20/21 Range/Units 06:17 06:47 11:36 POC Glucose (mg/dL) 354 H 343 H (75-99) mg/dL Hemoglobin A1c 7.0 H (4.0-6.0) % Microbiology - Last 24 Hours (Table) 04/18/21 15:20 Gram Stain - Preliminary Foot - Right Wound Culture - Preliminary Gram Neg Bacilli Presumptive Staph aureus 04/18/21 15:20 Gram Stain - Preliminary Heel - Right Tissue Culture - Preliminary Presumptive MRSA Gram Neg Bacilli Diphtheroid species Assessment and Plan Assessment: #1 acute kidney injury secondary to toxic ATN [vancomycin/NSAID] #2 CK D stage IV secondary to diabetic kidney disease Baseline creatinine 2.1- 2.4 MG per DL. #3 right foot osteomyelitis #4 complicated UTI Plan: #1 renal function improving. #2 continue with Lasix #3 avoid nephrotoxic agents and hypotensive episodes
[2021-04-20 17:12] LABS: Glucose,Whole Blood 282 mg/dL (75-99)
[2021-04-20] MEDS: levETIRAcetam 250 MG TAB PO SCH (17:48)
[2021-04-20] MEDS: MAGNESIUM OXIDE 400 MG TAB PO SCH (17:48)
[2021-04-20] MEDS: LIDOCAINE 5% PATCH TOPICAL SCH (17:49)
[2021-04-20 20:38] LABS: Glucose,Whole Blood 265 mg/dL (75-99)
[2021-04-20] MEDS: LATANOPROST 0.005% OPHTH DROPS 2.5 ML BTL BOTH EYES SCH (20:50)
[2021-04-20] MEDS: MELATONIN 5 MG TABLET PO SCH (20:52)
[2021-04-20] MEDS: ATORVASTATIN 20 MG TAB PO SCH (20:52)
--- NOTE | 2021-04-20 22:19 | PN ---
PROGRESS NOTE DATE OF SERVICE: 04/20/2021 REASON FOR FOLLOWUP: 1. Gram-negative urinary tract infection. 2. Right heel osteomyelitis with MRSA. INTERVAL HISTORY: The patient is afebrile. The patient is breathing comfortably. Denies any chest pain, shortness of breath or cough. No vomiting. No abdominal pain or diarrhea. PHYSICAL EXAMINATION: Blood pressure 133/71 with a pulse of 57, temperature 98.4. She is 94$ on 4 L nasal cannula. General description is a middle-aged female lying in bed in no distress. RESPIRATORY SYSTEM: Unlabored breathing. Decreased breath sounds at the bases. No wheeze. HEART: S1, S2. Regular rate and rhythm. ABDOMEN: Soft. No tenderness. Right heel is currently dressed. No drainage on the dressing. LABS: Culture from the right heel now showing presumptive MRSA. DIAGNOSTIC IMPRESSION AND PLAN: Patient with Gram-negative urinary tract infection in this patient who did have right heel osteomyelitis, status post debridement and culture now showing presumptive MRSA. Patient did have borderline kidney function, high risk of nephrotoxicity from vancomycin. She will be started on daptomycin for the osteomyelitis put on hold. She will need a PICC line and outpatient antibiotics. Continue supportive care. MMODL / IJN: [id number] /
[2021-04-21 07:20] LABS: Glucose,Whole Blood 154 mg/dL (75-99)
[2021-04-21] MEDS: ALBUTEROL NEBULIZED 2.5 MG/3 ML INHALATION SCH ×4 (07:23→20:29)
[2021-04-21] MEDS: INSULIN DETEMIR (LEVEMIR) 100 UNIT/ML SYR SQ SCH ×2 (08:47→22:03)
[2021-04-21] MEDS: allopurinoL 100 MG TAB PO SCH (08:47)
[2021-04-21] MEDS: LORATADINE 10 MG TAB PO SCH (08:47)
[2021-04-21] MEDS: carvediloL 3.125 MG TAB PO SCH ×2 (08:47→16:29)
[2021-04-21] MEDS: APIXABAN 2.5 MG TABLET PO SCH ×2 (08:47→16:29)
[2021-04-21] MEDS: INSULIN ASPART (NovoLOG) 100 UNIT/ML VIAL SQ SCH ×7 (08:47→22:03)
[2021-04-21] MEDS: PANTOPRAZOLE 40 MG TABLET PO SCH (08:47)
[2021-04-21] MEDS: FUROSEMIDE 10 MG/ML 4 ML VIAL IV SCH (08:48)
[2021-04-21] MEDS: FOLIC ACID 1 MG TAB PO SCH (08:48)
[2021-04-21] MEDS: DORZOLAMIDE-TIMOLOL 2.23%/0.68 10ML BTL BOTH EYES SCH ×2 (08:49→22:01)
--- NOTE | 2021-04-21 09:55 | P.PN ---
Subjective Progress Note Date: 04/21/21 Follow-up for acute kidney injury. Objective - Vital Signs Vital signs: Vital Signs Temp 98.1 F 04/21/21 04:17 Pulse 72 04/21/21 08:49 Resp 18 04/21/21 04:17 BP 137/67 04/21/21 08:49 Pulse Ox 99 04/21/21 04:17 Intake & Output 04/20/21 04/21/21 04/21/21 18:59 06:59 18:59 Intake Total 856 370 Output Total 1000 Balance 856 -630 Intake: Intake, IV Titration 50 100 Amount DAPTOmycin 600 mg In 50 Sodium Chloride 0.9% 50 ml @ 100 mls/hr IVPB Q48H [facility] Rx#:[id number] cefTRIAXone 1 gm In 50 50 Sodium Chloride 0.9% 50 ml @ 100 mls/hr IVPB Q24HR [facility] Rx#:[id number] Oral 806 270 Output: Urine 1000 Other: Voiding Method Indwelling Catheter Indwelling Catheter - Exam No acute distress S1-S2 heard Lungs clear trace edema - Labs CBC & Chem 7: 04/18/21 05:53 04/19/21 10:24 Labs: Abnormal Lab Results - Last 24 Hours (Table) 04/20/21 04/20/21 04/20/21 Range/Units 06:17 11:36 17:11 POC Glucose (mg/dL) 343 H 282 H (75-99) mg/dL Hemoglobin A1c 7.0 H (4.0-6.0) % 04/20/21 04/21/21 Range/Units 20:32 07:19 POC Glucose (mg/dL) 265 H 154 H (75-99) mg/dL Hemoglobin A1c (4.0-6.0) % Microbiology - Last 24 Hours (Table) 04/18/21 15:20 Gram Stain - Final Heel - Right Tissue Culture - Final Methicillin resist S. aureus Pseudomonas aeruginosa Proteus mirabilis Diphtheroid species 04/18/21 15:20 Gram Stain - Final Foot - Right Wound Culture - Final Pseudomonas aeruginosa Methicillin resist S. aureus 04/18/21 15:20 Anaerobic Culture - Preliminary Heel - Right Assessment and Plan Assessment: #1 acute kidney injury secondary to toxic ATN [vancomycin/NSAID] #2 CKD stage IV secondary to diabetic kidney disease Baseline creatinine 2.1-2.4 MG per DL. #3 foot osteomyelitis #4 complicated UTI Plan: #1 renal function improving. Follow-up on today's labs. #2 continue with Lasix #3 avoid nephrotoxic agents and hypotensive episodes
[2021-04-21 12:32] LABS: Glucose,Whole Blood 147 mg/dL (75-99)
[2021-04-21] MEDS: FLUOROMETHOLONE 0.1% OPHTH DROPS 5 ML BTL RIGHT EYE SCH (13:12)
[2021-04-21] MEDS ORDERED: PIPERACILLIN-TAZOBACTAM 3.375 GM in SODIUM CHLORIDE 0.9% 100 ML IVPB SCH (14:00)
[2021-04-21] MEDS: COLLAGENASE 250 UNIT/GM OINTMENT 30 GM TUBE TOPICAL SCH (15:26)
[2021-04-21] MEDS: LIDOCAINE 5% PATCH TOPICAL SCH (16:29)
[2021-04-21] MEDS: MAGNESIUM OXIDE 400 MG TAB PO SCH (16:29)
[2021-04-21] MEDS: levETIRAcetam 250 MG TAB PO SCH (16:29)
[2021-04-21 17:46] LABS: Glucose,Whole Blood 139 mg/dL (75-99)
[2021-04-21 20:16] LABS: Glucose,Whole Blood 160 mg/dL (75-99)
--- NOTE | 2021-04-21 20:42 | P.PN ---
Subjective Progress Note Date: 04/20/21 Principal diagnosis: Altered mental status/CO2 narcosis Acute on chronic hypercapnic respiratory failure Right heel ulcers/osteomyelitis UTI with gram-negative bacteria Acute on chronic kidney disease stage IV 65 year old female with past history of stroke and right-sided weakness, CAD/CHF, diabetes mellitus, hypertension, PE/DVT, who presents to [facility] from her extended care facility. Patient was having increased lethargy and fever. At their facility patient underwent laboratory studies and a chest x-ray. She was found have a white count of 17.6. Hemoglobin 9.4. Creatinine was 3.3. CMP greater than 270 and procalcitonin 1.9. She had an MRI done at our facility on the which was positive for osteomyelitis of the right heel. Patient did not appear to be on any antibiotics. At [facility] she was started on vancomycin. They requested transfer for infectious disease consult. Patient appears fatigued however able to answer most questions. Denies being any pain. She has a history of chronic kidney disease however kidney function was found to be worse today. Workup in ED with blood work reveals a WBC of 16.9, hemoglobin of 9.7, hematocrit 33.5 and platelet count of 194, sodium 137, potassium 5.2, BUN/creat inine markedly elevated at 95/3.31; UA is positive; MRI done and reviewed in ED reveals osteomyelitis 04/17/2021 Patient is seen and evaluated with nursing staff. Patient is currently extremely lethargic and responding only to sternal rub. Darlene signs are reviewed and remain stable. O2 saturation is between 89-90%/. Stat CT of head ordered without contrast, labs ordered including ammonia level. Stat ABG ; serial troponins; ABG are reviewed and reveal CO2 of 67. Floor nurse called and patient placed on BIPAP. Chest X ray reviewed which is unremarkable. Medication reviewed and all sedating medications are placed on hold. Pulmonary consult placed. 04/18/2021 Patient is seen and evaluated in room with daughter at bedside. She is currently resting in bed. Patient remains on BiPAP and does open eyes on verbal stimulation; Currently on BiPAP 14/6 and 40% FiO2. Vital signs are reviewed with temperature 97.7, pulse 88, respiration 14 and blood pressure 159/80 Lab review shows Urine culture positive for gram-negative bacilli. White count 9.1. Hemoglobin 10.0. Platelets 226. Sodium 138. Potassium 5.4. Creatinine 3.46. Glucose 218. she remains on IV site Medrol, bronchodilators, antibiotics in the form of ceftriaxone. Anticoagulated with Eliquis. ID on board recommending to continue with Rocephin for gram-negative UTI/procid entia; nephrology following for acute kidney injury 04/19/2021 Patient is seen and evaluated at bedside; sitting up in bed and is awake and alert; daughter is present at bedside Vital signs are stable temperature pulse 66, respiration 18 and blood pressure 146 units Patient is being treated for UTI/sepsis with hypercapnic respiratory failure; gram-negative UTI with probably dementia and she is currently on the appropriate antibiotics. Patient has been taking off the BiPAP with pulmonary service and put on 40 liters per nasal cannula. She was placed on IV Solu-Medrol which caused significant amount of hypoglycemia and has been discontinued by pulmonary service. She remains on Rocephin. She remains on bronchodilators. She has been on long-term and to coagulation with Eliquis. Her renal function is stable as the patient has chronic stage IV kidney disease. She also has a knee 1 infections in the right heel along with osteomyelitis. Infectious diseases on the case. [facility] surgeries on the case for wound debridement and deep tissue cultures 04/20/2021 the patient is seen and evaluated with daughter at bedside; awake and alert the patient is not having any respiratory distress.On oxygen by nasal cannula with an FiO2 of 32%. PH is 7.38 with a pCO2 of 52 and pO2 of 72 which was significant improvement and acid base status. The patient is also being done the Lasix. Creatinine is down 2.9. the BUN is at 140. Sodium is at 136. Urine culture has been completed and the patient has providencia urine culture. The same time, the patient had wound cultures growing gram-negative bacillus and MRSA. Patient is on antibiotic coverage and the patient is currently on IV Rocephin. Infectious disease currently on the case. No signs of any respiratory distress for now. Pulmonary service on board and recommending to continue with Lasix, continue with anticoagulation, Solu-Medrol has been discontinued; ID on board and rec ommending to continue with current antibiotic therapy to final deep tissue cultures are available Objective - Vital Signs Vital signs: Vital Signs Temp 97.9 F 04/20/21 11:52 Pulse 80 04/20/21 15:46 Resp 18 04/20/21 11:52 BP 143/70 04/20/21 11:52 Pulse Ox 100 04/20/21 04:26 Intake & Output 04/19/21 04/20/21 04/20/21 18:59 06:59 18:59 Intake Total 750 300 330 Output Total 1000 1000 Balance -250 -700 330 Weight 99.79 kg Intake: Oral 750 300 330 Output: Urine 1000 1000 Uretheral (Vera) 1000 Other: Voiding Method Indwelling Catheter Indwelling Catheter Indwelling Catheter - Exam PHYSICAL EXAMINATION: GENERAL: The patient is alert and oriented x3, not in any acute distress. Well developed, well nourished. HEENT: Pupils are round and equally reacting to light. EOMI. No scleral icterus. No conjunctival pallor. Normocephalic, atraumatic. No pharyngeal erythema. No thyromegaly. CARDIOVASCULAR: S1 and S2 present. No murmurs, rubs, or gallops. PULMONARY: Chest is clear to auscultation, no wheezing or crackles. ABDOMEN: Soft, nontender, nondistended, normoactive bowel sounds. No palpable organomegaly. MUSCULOSKELETAL: No joint swelling or deformity. EXTREMITIES: No cyanosis, clubbing, or pedal edema. NEUROLOGICAL: Gross neurological examination did not reveal any focal deficits. SKIN: No rashes. - Labs CBC & Chem 7: 04/18/21 05:53 04/19/21 10:24 Labs: Abnormal Lab Results - Last 24 Hours (Table) 04/19/21 04/19/21 04/19/21 Range/Units 17:36 20:10 20:12 POC Glucose (mg/dL) 456 H 496 H 456 H (75-99) mg/dL Hemoglobin A1c (4.0-6.0) % 04/20/21 04/20/21 04/20/21 Range/Units 06:17 06:47 11:36 POC Glucose (mg/dL) 354 H 343 H (75-99) mg/dL Hemoglobin A1c 7.0 H (4.0-6.0) % Microbiology - Last 24 Hours (Table) 04/18/21 15:20 Gram Stain - Preliminary Foot - Right Wound Culture - Preliminary Gram Neg Bacilli Presumptive Staph aureus 04/18/21 15:20 Gram Stain - Preliminary Heel - Right Tissue Culture - Preliminary Presumptive MRSA Gram Neg Bacilli Diphtheroid species Assessment and Plan Assessment: 1. Osteomyelitis right heel - MRI of the foot reveals osteomyelitis; patient has been placed on IV vancomycin; blood cultures and wound cultures are obtained and pending - Infectious disease is consulted for further recommendations on IV antibiotics and duration of treatment 2. Leukocytosis/sepsis; related to UTI/osteomyelitis - Patient has been placed on Rocephin 1 g IV daily and vancomycin - Blood cultures and urine cultures are obtained and pending; we will monitor CBC, CRP and for calcitonin 3. Profound UTI; patient received Rocephin 1 g IV daily; we will plan to continue current antibiotics at this time with further changes pending culture results 4. Acute on chronic kidney disease; slow IV fluid hydration with normal saline at a rate of 75 mL an hour; we will monitor strict BOLA's, daily weights, renal function and electrolytes; avoid nephrotoxin agents and hypotension 5. Hypertension; Coreg 3.125 mg twice a day 6. Diabetes mellitus controlled with insulin; continue with Lantus 50 units subcu twice a day; we will monitor Accu-Cheks before meals and at bedtime with insulin sliding scale 7. 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 CAD/CHF; stable on aspirin 81 mg daily, beta blockers Coreg 3.125 mg twice a day and statin therapy; hold off on diuretic therapy due to acute renal injury 9. Hyperlipidemia; Lipitor 20 mg by mouth daily at bedtime DVT prophylaxis; SCDs/systemic anticoagulation CODE STATUS; DO NOT RESUSCITATE
--- NOTE | 2021-04-21 20:45 | P.PN ---
Subjective Progress Note Date: 04/21/21 Principal diagnosis: Altered mental status/CO2 narcosis Acute on chronic hypercapnic respiratory failure Right heel ulcers/osteomyelitis UTI with gram-negative bacteria Acute on chronic kidney disease stage IV 65 year old female with past history of stroke and right-sided weakness, CAD/CHF, diabetes mellitus, hypertension, PE/DVT, who presents to [facility] from her extended care facility. Patient was having increased lethargy and fever. At their facility patient underwent laboratory studies and a chest x-ray. She was found have a white count of 17.6. Hemoglobin 9.4. Creatinine was 3.3. CMP greater than 270 and procalcitonin 1.9. She had an MRI done at our facility on the which was positive for osteomyelitis of the right heel. Patient did not appear to be on any antibiotics. At [facility] she was started on vancomycin. They requested transfer for infectious disease consult. Patient appears fatigued however able to answer most questions. Denies being any pain. She has a history of chronic kidney disease however kidney function was found to be worse today. Workup in ED with blood work reveals a WBC of 16.9, hemoglobin of 9.7, hematocrit 33.5 and platelet count of 194, sodium 137, potassium 5.2, BUN/creat inine markedly elevated at 95/3.31; UA is positive; MRI done and reviewed in ED reveals osteomyelitis 04/17/2021 Patient is seen and evaluated with nursing staff. Patient is currently extremely lethargic and responding only to sternal rub. Darlene signs are reviewed and remain stable. O2 saturation is between 89-90%/. Stat CT of head ordered without contrast, labs ordered including ammonia level. Stat ABG ; serial troponins; ABG are reviewed and reveal CO2 of 67. Floor nurse called and patient placed on BIPAP. Chest X ray reviewed which is unremarkable. Medication reviewed and all sedating medications are placed on hold. Pulmonary consult placed. 04/18/2021 Patient is seen and evaluated in room with daughter at bedside. She is currently resting in bed. Patient remains on BiPAP and does open eyes on verbal stimulation; Currently on BiPAP 14/6 and 40% FiO2. Vital signs are reviewed with temperature 97.7, pulse 88, respiration 14 and blood pressure 159/80 Lab review shows Urine culture positive for gram-negative bacilli. White count 9.1. Hemoglobin 10.0. Platelets 226. Sodium 138. Potassium 5.4. Creatinine 3.46. Glucose 218. she remains on IV site Medrol, bronchodilators, antibiotics in the form of ceftriaxone. Anticoagulated with Eliquis. ID on board recommending to continue with Rocephin for gram-negative UTI/procid entia; nephrology following for acute kidney injury 04/19/2021 Patient is seen and evaluated at bedside; sitting up in bed and is awake and alert; daughter is present at bedside Vital signs are stable temperature pulse 66, respiration 18 and blood pressure 146 units Patient is being treated for UTI/sepsis with hypercapnic respiratory failure; gram-negative UTI with probably dementia and she is currently on the appropriate antibiotics. Patient has been taking off the BiPAP with pulmonary service and put on 40 liters per nasal cannula. She was placed on IV Solu-Medrol which caused significant amount of hypoglycemia and has been discontinued by pulmonary service. She remains on Rocephin. She remains on bronchodilators. She has been on long-term and to coagulation with Eliquis. Her renal function is stable as the patient has chronic stage IV kidney disease. She also has a knee 1 infections in the right heel along with osteomyelitis. Infectious diseases on the case. [facility] surgeries on the case for wound debridement and deep tissue cultures 04/20/2021 the patient is seen and evaluated with daughter at bedside; awake and alert the patient is not having any respiratory distress.On oxygen by nasal cannula with an FiO2 of 32%. PH is 7.38 with a pCO2 of 52 and pO2 of 72 which was significant improvement and acid base status. The patient is also being done the Lasix. Creatinine is down 2.9. the BUN is at 140. Sodium is at 136. Urine culture has been completed and the patient has providencia urine culture. The same time, the patient had wound cultures growing gram-negative bacillus and MRSA. Patient is on antibiotic coverage and the patient is currently on IV Rocephin. Infectious disease currently on the case. No signs of any respiratory distress for now. Pulmonary service on board and recommending to continue with Lasix, continue with anticoagulation, Solu-Medrol has been discontinued; ID on board and rec ommending to continue with current antibiotic therapy to final deep tissue cultures are available 04/21/2021 Patient is seen and evaluated in room at bedside; sitting up in bed; discussed with nursing staff; no specific complaints Vital signs temp 98.1, pulse 72, respiration 18 and blood pressure 137 a 67 Nephrology on board for acute renal injury and is recommending to continue with current management Urine culture is positive for gram-negative organisms; patient is status post debridement of heel wound which now reveals presumptive MRSA; patient does have borderline kidney function and concern is high risk for neck for toxicity from vancomycin; ID recommending to start patient on IV daptomycin Objective - Vital Signs Vital signs: Vital Signs Temp 98.4 F 04/21/21 13:18 Pulse 68 04/21/21 16:59 Resp 20 04/21/21 13:18 BP 183/71 04/21/21 13:18 Pulse Ox 98 04/21/21 13:18 Intake & Output 04/20/21 04/21/21 04/21/21 18:59 06:59 18:59 Intake Total 856 370 600 Output Total 1000 1000 Balance 856 -011 -400 Intake: Intake, IV Titration 50 100 Amount DAPTOmycin 600 mg In 50 Sodium Chloride 0.9% 50 ml @ 100 mls/hr IVPB Q48H ROSE Rx#:[id number] cefTRIAXone 1 gm In 50 50 Sodium Chloride 0.9% 50 ml @ 100 mls/hr IVPB Q24HR ROSE Rx#:[id number] Oral 806 270 600 Output: Urine 1000 1000 Uretheral (Vera) 1000 Other: Voiding Method Indwelling Catheter Indwelling Catheter Indwelling Catheter - Exam PHYSICAL EXAMINATION: GENERAL: The patient is alert and oriented x3, not in any acute distress. Well developed, well nourished. HEENT: Pupils are round and equally reacting to light. EOMI. No scleral icterus. No conjunctival pallor. Normocephalic, atraumatic. No pharyngeal erythema. No thyromegaly. CARDIOVASCULAR: S1 and S2 present. No murmurs, rubs, or gallops. PULMONARY: Chest is clear to auscultation, no wheezing or crackles. ABDOMEN: Soft, nontender, nondistended, normoactive bowel sounds. No palpable organomegaly. MUSCULOSKELETAL: No joint swelling or deformity. EXTREMITIES: No cyanosis, clubbing, or pedal edema. NEUROLOGICAL: Gross neurological examination did not reveal any focal deficits. SKIN: No rashes. - Labs CBC & Chem 7: 04/18/21 05:53 04/19/21 10:24 Labs: Abnormal Lab Results - Last 24 Hours (Table) 04/20/21 04/20/21 04/21/21 Range/Units 17:11 20:32 07:19 POC Glucose (mg/dL) 282 H 265 H 154 H (75-99) mg/dL 04/21/21 Range/Units 12:30 POC Glucose (mg/dL) 147 H (75-99) mg/dL Microbiology - Last 24 Hours (Table) 04/18/21 15:20 Gram Stain - Final Heel - Right Tissue Culture - Final Methicillin resist S. aureus Pseudomonas aeruginosa Proteus mirabilis Diphtheroid species 04/18/21 15:20 Gram Stain - Final Foot - Right Wound Culture - Final Pseudomonas aeruginosa Methicillin resist S. aureus 04/18/21 15:20 Anaerobic Culture - Preliminary Heel - Right Assessment and Plan Assessment: 1. Osteomyelitis right heel - MRI of the foot reveals osteomyelitis; patient has been placed on IV vancomycin; blood cultures and wound cultures are obtained and pending - Infectious disease is consulted for further recommendations on IV antibiotics and duration of treatment 2. Leukocytosis/sepsis; related to UTI/osteomyelitis - Patient has been placed on Rocephin 1 g IV daily and vancomycin - Blood cultures and urine cultures are obtained and pending; we will monitor CBC, CRP and for calcitonin 3. Profound UTI; patient received Rocephin 1 g IV daily; we will plan to continue current antibiotics at this time with further changes pending culture results 4. Acute on chronic kidney disease; slow IV fluid hydration with normal saline at a rate of 75 mL an hour; we will monitor strict BOLA's, daily weights, renal function and electrolytes; avoid nephrotoxin agents and hypotension 5. Hypertension; Coreg 3.125 mg twice a day 6. Diabetes mellitus controlled with insulin; continue with Lantus 50 units subcu twice a day; we will monitor Accu-Cheks before meals and at bedtime with insulin sliding scale 7. 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 CAD/CHF; stable on aspirin 81 mg daily, beta blockers Coreg 3.125 mg twice a day and statin therapy; hold off on diuretic therapy due to acute renal injury 9. Hyperlipidemia; Lipitor 20 mg by mouth daily at bedtime DVT prophylaxis; SCDs/systemic anticoagulation CODE STATUS; DO NOT RESUSCITATE
[2021-04-21] MEDS: MELATONIN 5 MG TABLET PO SCH (22:01)
[2021-04-21] MEDS: LATANOPROST 0.005% OPHTH DROPS 2.5 ML BTL BOTH EYES SCH (22:01)
--- NOTE | 2021-04-21 22:38 | PN ---
PROGRESS NOTE DATE OF SERVICE: 04/21/2021 REASON FOR FOLLOWUP: 1. UTI. 2. Right heel osteomyelitis, acute, with MRSA, Pseudomonas and ESBL Proteus . INTERVAL HISTORY: The patient is afebrile. The patient is breathing comfortably. The patient denies having any chest pain, shortness of breath or cough. No abdominal pain or any worsening pain to the right heel. PHYSICAL EXAMINATION: Blood pressure 163/72 with a pulse of 69, temperature 98.2. She is 100% on 4 L nasal cannula. General description is a middle-aged female lying in bed in no distress. RESPIRATORY SYSTEM: Unlabored breathing. Clear to auscultation anteriorly. HEART: S1, S2. Regular rate and rhythm. ABDOMEN: Soft. No tenderness. Right knee is currently dressed. No obvious drainage on the dressing. LABS: Creatinine is 2.92. DIAGNOSTIC IMPRESSION AND PLAN: Patient with a right heel infected pressure ulcer, stage IV, with evidence of underlying osteomyelitis. Culture finalized with Pseudomonas, MRSA, ESBL Proteus. Patient is covered with daptomycin. We will add Meropenem to cover for the Gram- negative to cover for both ESBL and Proteus as well as . Local care with Olaf. Keep the area off pressure. Sister had many questions. Those were answered. She will get a PICC line for outpatient IV antibiotic therapy. MMODL / IJN: [id number] /
[2021-04-21] MEDS: MEROPENEM 1 GM in SODIUM CHLORIDE 0.9% 100 ML IVPB SCH (23:22)
[2021-04-22] MEDS: ALBUTEROL NEBULIZED 2.5 MG/3 ML INHALATION SCH ×4 (07:18→19:16)
[2021-04-22 07:29] LABS: Glucose,Whole Blood 67 mg/dL (75-99)
[2021-04-22 07:52] LABS: Glucose,Whole Blood 80 mg/dL (75-99)
[2021-04-22] MEDS: MEROPENEM 1 GM in SODIUM CHLORIDE 0.9% 100 ML IVPB SCH ×2 (08:14→22:11)
[2021-04-22] MEDS: LORATADINE 10 MG TAB PO SCH (08:15)
[2021-04-22] MEDS: FOLIC ACID 1 MG TAB PO SCH (08:15)
[2021-04-22] MEDS: carvediloL 3.125 MG TAB PO SCH ×2 (08:15→17:53)
[2021-04-22] MEDS: FUROSEMIDE 10 MG/ML 4 ML VIAL IV SCH (08:15)
[2021-04-22] MEDS: allopurinoL 100 MG TAB PO SCH (08:15)
[2021-04-22] MEDS: PANTOPRAZOLE 40 MG TABLET PO SCH (08:16)
[2021-04-22] MEDS: DORZOLAMIDE-TIMOLOL 2.23%/0.68 10ML BTL BOTH EYES SCH ×2 (08:16→21:31)
[2021-04-22] MEDS: INSULIN DETEMIR (LEVEMIR) 100 UNIT/ML SYR SQ SCH ×2 (08:25→21:27)
[2021-04-22 08:34] LABS: African American GFR (CKD) 22 (>60 ml/min/1.73 sqM); Anion Gap 5 mmol/L; Calcium 8.6 mg/dL (8.4-10.2); Carbon Dioxide 31 mmol/L (22-30); Chloride 104 mmol/L (98-107); Glucose 60 mg/dL (74-99); Non-African American GFR(CKD) 19 (>60 ml/min/1.73 sqM); Potassium 5.8 mmol/L (3.5-5.1); Sodium 140 mmol/L (137-145)
[2021-04-22 08:38] LABS: Anisocytosis Slight; Basophils # (A) 0.1 k/uL (0-0.2); Basophils % (A) 0 %; Eosinophils # (A) 0.5 k/uL (0-0.7); Eosinophils % (A) 4 %; HGB 10.9 gm/dL (11.4-16.0); Hypochromasia Slight; Lymphocytes # (A) 2.1 k/uL (1.0-4.8); Lymphocytes % (A) 16 %; MCH 28.2 pg (25.0-35.0); MCHC 31.1 g/dL (31.0-37.0); Mean Platelet Volume 10.5; Monocytes # (A) 0.7 k/uL (0-1.0); Monocytes % (A) 5 %; Neutrophils # (A) 9.5 k/uL (1.3-7.7); Neutrophils % (A) 73 %; Platelet Count 324 k/uL (150-450); RBC 3.86 m/uL (3.80-5.40); RDW 17.8 % (11.5-15.5); WBC 13.1 k/uL (3.8-10.6)
[2021-04-22 08:44] LABS: Blood Urea Nitrogen 146 mg/dL (7-17)
[2021-04-22 08:47] LABS: MCV 90.7 fL (80.0-100.0)
[2021-04-22] MEDS ORDERED: INSULIN REGULAR 100 UNIT/ML VIAL (IV) IV ONE (08:53)
[2021-04-22] MEDS ORDERED: DEXTROSE 50% SYRINGE 50 ML IVP STA (08:53)
[2021-04-22] MEDS ORDERED: hydrALAZINE HCL 20 MG/ML 1 ML VIAL IVP PRN (09:00)
--- NOTE | 2021-04-22 09:01 | P.PN ---
Subjective Patient is seen in follow-up for acute kidney injury on chronic kidney disease. Creatinine trending down. Nonoliguric. On IV Lasix. Oral intake fair. On 4 L nasal cannula. Vital signs are stable. HEENT: Head exam is unremarkable. On nasal cannula. LUNGS: Breath sounds decreased. HEART: Rate and Rhythm are regular. ABDOMEN: Soft, obese. EXTREMITITES: Lower extremities wrapped. No drainage. Objective - Vital Signs Vital signs: Vital Signs Temp 97.8 F 04/22/21 05:00 Pulse 70 04/22/21 07:29 Resp 18 04/22/21 05:00 BP 167/75 04/22/21 05:00 Pulse Ox 96 04/22/21 05:00 Intake & Output 04/21/21 04/22/21 04/22/21 18:59 06:59 18:59 Intake Total 840 Output Total 1000 1200 Balance -160 -1200 Intake: Oral 840 Output: Urine 1000 1200 Uretheral (Vera) 1000 Other: Voiding Method Indwelling Catheter Indwelling Catheter # Bowel Movements 0 - Labs CBC & Chem 7: 04/22/21 07:23 04/22/21 07:23 Labs: Abnormal Lab Results - Last 24 Hours (Table) 04/21/21 04/21/21 04/21/21 Range/Units 12:30 17:44 20:14 WBC (3.8-10.6) k/uL Hgb (11.4-16.0) gm/dL RDW (11.5-15.5) % Neutrophils # (1.3-7.7) k/uL Potassium (3.5-5.1) mmol/L Carbon Dioxide (22-30) mmol/L BUN (7-17) mg/dL Creatinine (0.52-1.04) mg/dL Glucose (74-99) mg/dL POC Glucose (mg/dL) 147 H 139 H 160 H (75-99) mg/dL 04/22/21 04/22/21 04/22/21 Range/Units 07:23 07:23 07:28 WBC 13.1 H (3.8-10.6) k/uL Hgb 10.9 L (11.4-16.0) gm/dL RDW 17.8 H (11.5-15.5) % Neutrophils # 9.5 H (1.3-7.7) k/uL Potassium 5.8 H (3.5-5.1) mmol/L Carbon Dioxide 31 H (22-30) mmol/L BUN 146 H* (7-17) mg/dL Creatinine 2.59 H (0.52-1.04) mg/dL Glucose 60 L (74-99) mg/dL POC Glucose (mg/dL) 67 L (75-99) mg/dL Microbiology - Last 24 Hours (Table) 04/18/21 15:20 Anaerobic Culture - Final Heel - Right 04/18/21 15:20 Gram Stain - Final Heel - Right Tissue Culture - Final Methicillin resist S. aureus Pseudomonas aeruginosa Proteus mirabilis Diphtheroid species 04/18/21 15:20 Gram Stain - Final Foot - Right Wound Culture - Final Pseudomonas aeruginosa Methicillin resist S. aureus Assessment and Plan Plan: Assessment: 1. Acute kidney injury secondary to ATN secondary to vancomycin, nonsteroidals as well as infection. Renal function improving. Creatinine 2.56 today. Elevated BUN secondary to chronic kidney disease as well as steroids she was on earlier this admission. No evidence of GI bleed. 2. Chronic kidney disease stage IV secondary to diabetic kidney disease with baseline creatinine in the range of 2.1-2.4. 3. Right foot osteomyelitis and UTI. On antibiotics. 4. Hyperkalemia secondary to chronic kidney disease and underlying RTA. 5. Diabetes mellitus. 6. Hypertension with chronic kidney disease. Plan: Stop IV Lasix - she received a dose this AM. Low potassium diet. 10 units IV insulin with an amp of D50 now. Repeat potassium level this afternoon. Continue to monitor renal function and urine output. Add hydralazine 10 mg every 4-6 hours as needed for systolic blood pressure greater than 140.
[2021-04-22] MEDS: INSULIN ASPART (NovoLOG) 100 UNIT/ML VIAL SQ SCH ×7 (09:27→21:27)
[2021-04-22] MEDS: APIXABAN 2.5 MG TABLET PO SCH ×2 (09:27→17:53)
[2021-04-22] MEDS ORDERED: LIDOCAINE 1% INJ 10MG/ML (20 ML MDV) ONE (10:41)
[2021-04-22] MEDS ORDERED: LIDOCAINE 1% INJ 10MG/ML (20 ML MDV) SQ ONE (11:18)
[2021-04-22 11:53] LABS: Glucose,Whole Blood 163 mg/dL (75-99)
[2021-04-22] MEDS: ACETAMINOPHEN TAB 325 MG TAB PO PRN ×2 (12:54→17:54)
[2021-04-22] MEDS: FLUOROMETHOLONE 0.1% OPHTH DROPS 5 ML BTL RIGHT EYE SCH (13:00)
[2021-04-22] MEDS: LIDOCAINE 5% PATCH TOPICAL SCH (14:57)
[2021-04-22] MEDS: COLLAGENASE 250 UNIT/GM OINTMENT 30 GM TUBE TOPICAL SCH (14:57)
--- NOTE | 2021-04-22 15:27 | IR ---
EXAMINATION TYPE: IR cvc insert >=5 years DATE OF EXAM: 04/22/2021 COMPARISON: NONE CLINICAL HISTORY: Infection Needs long-term intravenous access for antibiotics. PROCEDURE: Hand hygiene obtained with soap and water and alcohol-based hand rub. After informed consent, the skin overlying the right basilic vein was localized with ultrasound and n oted to be compressible and patent. An ultrasound image was obtained and submitted on the patient's chart. The overlying skin was prepped and draped and Lidocaine was used for local anesthesia. A ski n lori was made with a scalpel. Access was gained to the vein under ultrasound guidance with a 21 ga uge needle and a 0.018 inch wire was advanced. Access site was dilated with Peel-Away sheath and cat heter tailored to the appropriate length and advanced such that the distal tip is at the cavoatrial j unction. Spot image was obtained verifying placement. Catheter was fixed to the skin and a sterile dressing was placed following hemostasis. Catheter was aspirated and flushed with saline. Patient w as discharged in stable condition without complication.Maximal barrier technique is utilized. Ultras ound image is documented on the chart. Ultrasound used with sterile technique. Fluoro time and fluoroscopic images submitted to document procedure: 11 intraoperative C-arm images, 0.3 minutes fluoroscopy time IMPRESSION: STATUS POST ULTRASOUND AND FLUOROSCOPIC GUIDED PICC LINE PLACEMENT, READY FOR USE. THIS PROCEDURE WAS PERFORMED BY THE UNDERSIGNED.
--- NOTE | 2021-04-22 15:30 | PN ---
PROGRESS NOTE DATE OF SERVICE: 04/22/2021 REASON FOR FOLLOWUP: 1. UTI. 2. Right heel infected pressure ulcer. INTERVAL HISTORY: The patient is afebrile. The patient is breathing more comfortably. She is more awake and alert. No chest pain, shortness of breath or cough. No abdominal pain or any worsening pain to the right heel. PHYSICAL EXAMINATION: Blood pressure 130/65, pulse of 67, temperature 98.4. She is 100% on 4 L nasal cannula. General description is a middle-aged female lying in bed in no distress. RESPIRATORY SYSTEM: Unlabored breathing. Clear to auscultation anteriorly. HEART: S1, S2. Regular rate and rhythm. ABDOMEN: Soft. No tenderness. Right heel is currently dressed. No obvious drainage on the dressing. LABS: White count is slightly up at 13.1. Creatinine is 2.59. DIAGNOSTIC IMPRESSION AND PLAN: 1. Patient with Providencia urinary tract infection, adequately treated. 2. Patient with right heel infected pressure ulcer, stage IV, with underlying diabetes. Culture positive for Pseudomonas, MRSA, Proteus, ESBL. Plan is for a 6- week course of daptomycin and meropenem. Local care per Surgery and close outpatient followup. MMODL / IJN: [id number] /
[2021-04-22 17:45] LABS: Glucose,Whole Blood 159 mg/dL (75-99)
[2021-04-22] MEDS: levETIRAcetam 250 MG TAB PO SCH (17:53)
[2021-04-22] MEDS: MAGNESIUM OXIDE 400 MG TAB PO SCH (17:53)
[2021-04-22 20:18] LABS: Glucose,Whole Blood 212 mg/dL (75-99)
[2021-04-22] MEDS: MELATONIN 5 MG TABLET PO SCH (21:27)
[2021-04-22] MEDS: LATANOPROST 0.005% OPHTH DROPS 2.5 ML BTL BOTH EYES SCH (21:32)
[2021-04-23 05:12] LABS: Glucose,Whole Blood 114 mg/dL (75-99)
[2021-04-23 07:22] LABS: Glucose,Whole Blood 115 mg/dL (75-99)
[2021-04-23] MEDS: ALBUTEROL NEBULIZED 2.5 MG/3 ML INHALATION SCH ×3 (07:23→15:04)
[2021-04-23 08:17] LABS: Anisocytosis Slight; Basophils % (A) 0 %; Eosinophils # (A) 0.4 k/uL (0-0.7); Eosinophils % (A) 4 %; HCT 37.5 % (34.0-46.0); HGB 11.3 gm/dL (11.4-16.0); Hypochromasia Moderate; Lymphocytes # (A) 1.2 k/uL (1.0-4.8); Lymphocytes % (A) 12 %; MCH 28.1 pg (25.0-35.0); MCV 93.6 fL (80.0-100.0); Mean Platelet Volume 9.4; Monocytes # (A) 0.5 k/uL (0-1.0); Monocytes % (A) 5 %; Neutrophils # (A) 7.9 k/uL (1.3-7.7); Neutrophils % (A) 78 %; Platelet Count 290 k/uL (150-450); RBC 4.01 m/uL (3.80-5.40); RDW 17.6 % (11.5-15.5); WBC 10.2 k/uL (3.8-10.6)
[2021-04-23] MEDS: INSULIN ASPART (NovoLOG) 100 UNIT/ML VIAL SQ SCH ×4 (08:31→13:15)
[2021-04-23] MEDS: carvediloL 3.125 MG TAB PO SCH ×2 (08:36→16:59)
[2021-04-23] MEDS: allopurinoL 100 MG TAB PO SCH (08:37)
[2021-04-23] MEDS: LORATADINE 10 MG TAB PO SCH (08:38)
[2021-04-23] MEDS: FOLIC ACID 1 MG TAB PO SCH (08:38)
[2021-04-23] MEDS: APIXABAN 2.5 MG TABLET PO SCH ×2 (08:38→16:59)
[2021-04-23] MEDS: PANTOPRAZOLE 40 MG TABLET PO SCH (08:39)
[2021-04-23] MEDS: INSULIN DETEMIR (LEVEMIR) 100 UNIT/ML SYR SQ SCH (08:45)
[2021-04-23] MEDS: MEROPENEM 1 GM in SODIUM CHLORIDE 0.9% 100 ML IVPB SCH (08:59)
--- NOTE | 2021-04-23 09:04 | P.PN ---
Subjective Patient is seen in follow-up for acute kidney injury on chronic kidney disease. Creatinine trending down. Nonoliguric. Oral intake fair. On 4 L nasal cannula. No changes overnight. Vital signs are stable. HEENT: Head exam is unremarkable. On nasal cannula. LUNGS: Breath sounds decreased. HEART: Rate and Rhythm are regular. ABDOMEN: Soft, obese. EXTREMITITES: Lower extremities wrapped. No drainage. Objective - Vital Signs Vital signs: Vital Signs Temp 97.7 F 04/23/21 04:45 Pulse 80 04/23/21 07:35 Resp 18 04/23/21 04:45 BP 148/78 04/23/21 04:45 Pulse Ox 100 04/23/21 04:45 Intake & Output 04/22/21 04/23/21 04/23/21 18:59 06:59 18:59 Intake Total 960 450 Output Total 2000 Balance -1040 450 Intake: Intake, IV Titration 150 Amount DAPTOmycin 600 mg In 50 Sodium Chloride 0.9% 50 ml @ 100 mls/hr IVPB Q48H ROSE Rx#:[id number] Meropenem 1 gm In Sodium 100 Chloride 0.9% 100 ml @ 33 .3 mls/hr IVPB Q12HR [facility]SE Rx#:[id number] Oral 960 300 Output: Urine 1999 Uretheral (Vera) 1999 Other: Voiding Method Indwelling Catheter Indwelling Catheter # Bowel Movements 1 - Labs CBC & Chem 7: 04/23/21 07:06 04/22/21 15:11 Labs: Abnormal Lab Results - Last 24 Hours (Table) 04/22/21 04/22/21 04/22/21 Range/Units 11:46 17:35 20:16 Hgb (11.4-16.0) gm/dL MCHC (31.0-37.0) g/dL RDW (11.5-15.5) % Neutrophils # (1.3-7.7) k/uL POC Glucose (mg/dL) 163 H 159 H 212 H (75-99) mg/dL 04/23/21 04/23/21 04/23/21 Range/Units 05:11 07:06 07:20 Hgb 11.3 L (11.4-16.0) gm/dL MCHC 30.0 L (31.0-37.0) g/dL RDW 17.6 H (11.5-15.5) % Neutrophils # 7.9 H (1.3-7.7) k/uL POC Glucose (mg/dL) 114 H 115 H (75-99) mg/dL Microbiology - Last 24 Hours (Table) 04/18/21 15:20 Anaerobic Culture - Final Heel - Right Anaerobic Gm Negative Bacilli Assessment and Plan Plan: Assessment: 1. Acute kidney injury secondary to ATN secondary to vancomycin, nonsteroidals as well as infection. Nonoliguric. Renal function improving. Creatinine 2.59 yesterday. Elevated BUN secondary to chronic kidney disease as well as steroids she was on earlier this admission. No evidence of GI bleed. ?component of diure sis. 2. Chronic kidney disease stage IV secondary to diabetic kidney disease with baseline creatinine in the range of 2.1-2.4. 3. Right foot osteomyelitis and UTI. On antibiotics. 4. Hyperkalemia secondary to chronic kidney disease and underlying RTA. 5. Diabetes mellitus. 6. Hypertension with chronic kidney disease. Stable. Plan: IV Lasix stopped yesterday due to high BUN. Low potassium diet. Continue to monitor renal function and urine output. Morning labs pending.
[2021-04-23] MEDS: DORZOLAMIDE-TIMOLOL 2.23%/0.68 10ML BTL BOTH EYES SCH (11:37)
[2021-04-23] MEDS: COLLAGENASE 250 UNIT/GM OINTMENT 30 GM TUBE TOPICAL SCH (11:59)
--- NOTE | 2021-04-23 12:32 | P.PN ---
Subjective Progress Note Date: 04/22/21 Principal diagnosis: Altered mental status/CO2 narcosis Acute on chronic hypercapnic respiratory failure Right heel ulcers/osteomyelitis UTI with gram-negative bacteria Acute on chronic kidney disease stage IV 65 year old female with past history of stroke and right-sided weakness, CAD/CHF, diabetes mellitus, hypertension, PE/DVT, who [facility] from her extended care facility. Patient was having increased lethargy and fever. At their facility patient underwent laboratory studies and a chest x-ray. She was found have a white count of 17.6. Hemoglobin 9.4. Creatinine was 3.3. CMP greater than 270 and procalcitonin 1.9. She had an MRI done at our facility on the which was positive for osteomyelitis of the right heel. Patient did not appear to be on any antibiotics. At [facility] she was started on vancomycin. They requested transfer for infectious disease consult. Patient appears fatigued however able to answer most questions. Denies being any pain. She has a history of chronic kidney disease however kidney function was found to be worse today. Workup in ED with blood work reveals a WBC of 16.9, hemoglobin of 9.7, hematocrit 33.5 and platelet count of 194, sodium 137, potassium 5.2, BUN/crea tinine markedly elevated at 95/3.31; UA is positive; MRI done and reviewed in ED reveals osteomyelitis 04/17/2021 Patient is seen and evaluated with nursing staff. Patient is currently extremely lethargic and responding only to sternal rub. Darlene signs are reviewed and remain stable. O2 saturation is between 89-90%/. Stat CT of head ordered without contrast, labs ordered including ammonia level. Stat ABG ; serial troponins; ABG are reviewed and reveal CO2 of 67. Floor nurse called and patient placed on BIPAP. Chest X ray reviewed which is unremarkable. Medication reviewed and all sedating medications are placed on hold. Pulmonary consult placed. 04/18/2021 Patient is seen and evaluated in room with daughter at bedside. She is currentl y resting in bed. Patient remains on BiPAP and does open eyes on verbal stimulation; Currently on BiPAP 14/6 and 40% FiO2. Vital signs are reviewed with temperature 97.7, pulse 88, respiration 14 and blood pressure 159/80 Lab review shows Urine culture positive for gram-negative bacilli. White count 9.1. Hemoglobin 10.0. Platelets 226. Sodium 138. Potassium 5.4. Creatinine 3.46. Glucose 218. she remains on IV site Medrol, bronchodilators, antibiotics in the form of ceftriaxone. Anticoagulated with Eliquis. ID on board recommending to continue with Rocephin for gram-negative UTI/proci dentia; nephrology following for acute kidney injury 04/19/2021 Patient is seen and evaluated at bedside; sitting up in bed and is awake and alert; daughter is present at bedside Vital signs are stable temperature pulse 66, respiration 18 and blood pressure 146 units Patient is being treated for UTI/sepsis with hypercapnic respiratory failure; gram-negative UTI with probably dementia and she is currently on the appropriate antibiotics. Patient has been taking off the BiPAP with pulmonary service and put on 40 liters per nasal cannula. She was placed on IV Solu-Medrol which caused significant amount of hypoglycemia and has been discontinued by pulmonary service. She remains on Rocephin. She remains on bronchodilators. She has been on long-term and to coagulation with Eliquis. Her renal function is stable as the patient has chronic stage IV kidney disease. She also has a knee 1 infections in the right heel along with osteomyelitis. Infectious diseases on the case. [facility] surgeries on the case for wound debridement and deep tissue cultures 04/20/2021 the patient is seen and evaluated with daughter at bedside; awake and alert the patient is not having any respiratory distress.On oxygen by nasal cannula with an FiO2 of 32%. PH is 7.38 with a pCO2 of 52 and pO2 of 72 which was significant improvement and acid base status. The patient is also being done the Lasix. Creatinine is down 2.9. the BUN is at 140. Sodium is at 136. Urine culture has been completed and the patient has providencia urine culture. The same time, the patient had wound cultures growing gram-negative bacillus and MRSA. Patient is on antibiotic coverage and the patient is currently on IV Rocephin. Infectious disease currently on the case. No signs of any respiratory distress for now. Pulmonary service on board and recommending to continue with Lasix, continue with anticoagulation, Solu-Medrol has been discontinued; ID on board and re commending to continue with current antibiotic therapy to final deep tissue cultures are available 04/21/2021 Patient is seen and evaluated in room at bedside; sitting up in bed; discussed with nursing staff; no specific complaints Vital signs temp 98.1, pulse 72, respiration 18 and blood pressure 137 a 67 Nephrology on board for acute renal injury and is recommending to continue with current management Urine culture is positive for gram-negative organisms; patient is status post debridement of heel wound which now reveals presumptive MRSA; patient does have borderline kidney function and concern is high risk for neck for toxicity from vancomycin; ID recommending to start patient on IV daptomycin 04/22/21 Patient is currently sitting on the side of the bed. No complaints of chest pain. Right heel pain is controlled with medications. Patient has been afebrile. No cough or sputum production. Denied any dysuria or hematuria. No headache or dizziness or lightheadedness. Patient is getting IV antibiotics in the form of meropenem. Otherwise laboratory data showed WBC 13.1 hemoglobin 10.9 and platelets 324 Sodium 140 potassium 5.8 chloride 104 bicarb 31 BUN 146 and creatinine 2.59 Patient will need PICC line for IV antibiotics and continue to monitor renal function. Nephrology and ID is on board. Current medications reviewed. Objective - Vital Signs Vital signs: Vital Signs Temp 98.7 F 04/22/21 20:58 Pulse 73 04/22/21 20:58 Resp 16 04/22/21 20:58 BP 104/64 04/22/21 20:58 Pulse Ox 92 L 04/22/21 20:58 Intake & Output 04/22/21 04/22/21 04/23/21 06:59 18:59 06:59 Intake Total 960 Output Total 1200 2000 Balance -1200 -1040 Intake: Oral 960 Output: Urine 1200 2000 Uretheral (Vera) 2000 Other: Voiding Method Indwelling Catheter Indwelling Catheter # Bowel Movements 1 - Exam PHYSICAL EXAMINATION: GENERAL: The patient is alert and oriented x3, not in any acute distress. Well developed, well nourished. HEENT: Pupils are round and equally reacting to light. EOMI. No scleral icterus. No conjunctival pallor. Normocephalic, atraumatic. No pharyngeal erythema. No thyromegaly. CARDIOVASCULAR: S1 and S2 present. No murmurs, rubs, or gallops. PULMONARY: Chest is clear to auscultation, no wheezing or crackles. ABDOMEN: Soft, nontender, nondistended, normoactive bowel sounds. No palpable organomegaly. MUSCULOSKELETAL: No joint swelling or deformity. EXTREMITIES: No cyanosis, clubbing, or pedal edema. NEUROLOGICAL: Gross neurological examination did not reveal any focal deficits. SKIN: No rashes. - Labs CBC & Chem 7: 04/23/21 07:06 04/22/21 15:11 Labs: Abnormal Lab Results - Last 24 Hours (Table) 04/22/21 04/22/21 04/22/21 Range/Units 07:23 07:23 07:28 WBC 13.1 H (3.8-10.6) k/uL Hgb 10.9 L (11.4-16.0) gm/dL RDW 17.8 H (11.5-15.5) % Neutrophils # 9.5 H (1.3-7.7) k/uL Potassium 5.8 H (3.5-5.1) mmol/L Carbon Dioxide 31 H (22-30) mmol/L BUN 146 H* (7-17) mg/dL Creatinine 2.59 H (0.52-1.04) mg/dL Glucose 60 L (74-99) mg/dL POC Glucose (mg/dL) 67 L (75-99) mg/dL 04/22/21 04/22/21 04/22/21 Range/Units 11:46 17:35 20:16 WBC (3.8-10.6) k/uL Hgb (11.4-16.0) gm/dL RDW (11.5-15.5) % Neutrophils # (1.3-7.7) k/uL Potassium (3.5-5.1) mmol/L Carbon Dioxide (22-30) mmol/L BUN (7-17) mg/dL Creatinine (0.52-1.04) mg/dL Glucose (74-99) mg/dL POC Glucose (mg/dL) 163 H 159 H 212 H (75-99) mg/dL Microbiology - Last 24 Hours (Table) 04/18/21 15:20 Anaerobic Culture - Final Heel - Right Anaerobic Gm Negative Bacilli 04/18/21 15:20 Anaerobic Culture - Final Heel - Right Assessment and Plan Assessment: 1. Osteomyelitis right heel - MRI of the foot reveals osteomyelitis; patient has been placed on IV vanco mycin; changed to daptomycin and meropenem. Wound cultures grew MRSA and Pseudomonas. - Infectious disease is consulted for further recommendations on IV antibiotics and duration of treatment. Patient will need IV antibiotics. PICC line. 2. Leukocytosis/sepsis; related to UTI/osteomyelitis - Patient has been placed on Rocephin 1 g IV daily and vancomycin. Currently changed to daptomycin and meropenem. -Urine cultures grew providentia 3. Profound UTI; patient received Rocephin 1 g IV daily; currently on broad- spectrum antibiotics. 4. Acute on chronic kidney disease; secondary to ATN secondary to vancomycin, infection and nonsteroidal anti-inflammatory agents. Hyperkalemia secondary to above Patient was on normal saline at a rate of 75 mL an hour; IV Lasix on hold. Continue with low potassium diet. we will monitor strict BOLA's, daily weights, renal function and electrolytes; avoid nephrotoxin agents and hypotension 5. Hypertension; Coreg 3.125 mg twice a day. Hydralazine when necessary for SBP greater than 160 6. Diabetes mellitus2 controlled with insulin; continue with Lantus 50 units subcu twice a day; we will monitor Accu-Cheks before meals and at bedtime with insulin sliding scale 7. 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 History of CAD/CHF; stable on aspirin 81 mg daily, beta blockers Coreg 3.125 mg twice a day and statin therapy; hold off on diuretic therapy due to acute renal injury 9. Hyperlipidemia; Lipitor 20 mg by mouth daily at bedtime DVT prophylaxis; SCDs/systemic anticoagulation CODE STATUS; DO NOT RESUSCITATE Time with Patient: Greater than 30
[2021-04-23 12:49] LABS: Glucose,Whole Blood 113 mg/dL (75-99)
[2021-04-23] MEDS: ACETAMINOPHEN TAB 325 MG TAB PO PRN (12:59)
[2021-04-23] MEDS: FLUOROMETHOLONE 0.1% OPHTH DROPS 5 ML BTL RIGHT EYE SCH (13:12)
[2021-04-23 13:46] LABS: Anion Gap 14.2 mmol/L (4.00-12.00); BUN/Creat Ratio 50.69 Ratio (12.00-20.00); Calcium 8.9 mg/dL (8.7-10.3); Carbon Dioxide 25.9 mmol/L (21.6-31.8); Non-African American GFR(CKD) 23.3 (60.0-200.0); Potassium 4.7 mmol/L (3.5-5.5)
--- NOTE | 2021-04-23 15:01 | P.DS ---
Providers Date of admission: 04/15/21 20:44 Expected date of discharge: 04/23/21 Attending physician: Joshua Guo Consults: 04/15/21 20:54 Consult Physician Urgent Consulting Provider: Natanael Chester Consult Reason/Comments: osteomyelitis right foot Do you want consulting provider notified?: Yes 04/16/21 22:34 Consult Physician Routine Consulting Provider: Rocco Ovalle Consult Reason/Comments: right heel wound , debridemnt and deep cultures Do you want consulting provider notified?: Yes 04/17/21 13:48 Consult Physician Routine Consulting Provider: Flori Knutson Consult Reason/Comments: worsening Renal failure Do you want consulting provider notified?: Yes 04/17/21 17:14 Consult Physician Routine Consulting Provider: Daylin Leal Consult Reason/Comments: Hypercapneic resp failure Do you want consulting provider notified?: Yes Primary care physician: Pankaj Zendejas Hospital Course: Final diagnosis Osteomyelitis of the right heel with culture showing Pseudomonas and MRSA Leukocytosis, sepsis related to UTI and osteomyelitis, present on admission Profound UTI Acute on chronic kidney disease secondary to acute tubular necrosis secondary to vancomycin and NSAIDs along with infection Hyperkalemia secondary to above Hypertension Diabetes mellitus type 2 History of DVT/PE History of coronary disease, CHF Hyperlipidemia DVT prophylaxis No code Discharge disposition Patient is being discharged in a stable condition with guarded prognosis to [facility] where she is a resident. Patient will follow-up with Dr. Velazquez in the outpatient setting upon discharge. Patient is to follow-up closely with nephrology in the outpatient setting in 1 week. Recommend repeat labs in 2-3 days to monitor kidney functions and magnesium closely. Patient will continue on IV daptomycin every 48 hours for 6 weeks along with IV meropenem twice daily for 6 weeks per infectious disease recommendations. Total time taken is greater than 35 minutes. Hospital course Altered mental status/CO2 narcosis Acute on chronic hypercapnic respiratory failure Right heel ulcers/osteomyelitis UTI with gram-negative bacteria Acute on chronic kidney disease stage IV 65 year old female with past history of stroke and right-sided weakness, CAD/CHF, diabetes mellitus, hypertension, PE/DVT, who presents to [facility] from her extended care facility. Patient was having increased lethargy and fever. At their facility patient underwent laboratory studies and a chest x-ray. She was found have a white count of 17.6. Hemoglobin 9.4. Creatinine was 3.3. CMP greater than 270 and procalcitonin 1.9. She had an MRI done at our facility on the which was positive for osteomyelitis of the right heel. Patient did not appear to be on any antibiotics. At [facility] she was started on vancomycin. They requested transfer for infectious disease consult. Patient appears fatigued however able to answer most questions. Denies being any pain. She has a history of chronic kidney disease however kidney function was found to be worse today. Workup in ED with blood work reveals a WBC of 16.9, hemoglobin of 9.7, hematocrit 33.5 and platelet count of 194, sodium 137, potassium 5.2, BUN/creatinine markedly elevated at 95/3.31; UA is positive; MRI done and reviewed in ED reveals osteomyelitis 04/23/2021 Patient has been held on IV Lasix and diuretics and recommending to continue holding per nephrology recommendations with kidney functions improving. Patient will need outpatient follow-up closely with nephrology in one week and recommended repeat labs in 2-3 days to monitor kidney functions. Patient has received a PICC line and will be going to [facility] where she is a resident with continued IV antibiotic therapy and close outpatient follow-up with infectious disease. Patient will also continue with local wound care as mentioned below. Patient to continue following a low potassium low phosphorus renal diet and dysphagia 3 chopped and recommend aspiration precautions and supervision with meals with head of the bed elevated 30-45 at all times. Currently no reports of chest pain, shortness of breath, or palpitations. Patient is afebrile. No reports of nausea or vomiting and patient is tolerating diet. Patient will be going to [facility] today. Guarded prognosis. GENERAL: The patient is alert and oriented x3, not in any acute distress. Well developed, well nourished. HEENT: Pupils are round and equally reacting to light. EOMI. No scleral icterus. No conjunctival pallor. Normocephalic, atraumatic. No pharyngeal erythema. No thyromegaly. CARDIOVASCULAR: S1 and S2 present. No murmurs, rubs, or gallops. PULMONARY: Chest is clear to auscultation, no wheezing or crackles. ABDOMEN: Soft, nontender, nondistended, normoactive bowel sounds. No palpable organomegaly. MUSCULOSKELETAL: No joint swelling or deformity. EXTREMITIES: No cyanosis, clubbing, or pedal edema. NEUROLOGICAL: Gross neurological examination did not reveal any focal deficits. SKIN: No rashes. Please refer to medication reconciliation sheet for a list of medications. Patient Condition at Discharge: Stable Plan - Discharge Summary Discharge Rx Participant: No New Discharge Prescriptions: New Ipratropium-Albuterol Nebulize [Duoneb 0.5 mg-3 mg/3 ml Soln] 3 ml INHALATION RT-QID PRN ml PRN Reason: Shortness Of Breath Or Wheezing Collagenase [Santyl] 1 applic TOPICAL DAILY@1000 gm Acetaminophen Tab [Tylenol] 650 mg PO Q6HR PRN tab PRN Reason: Mild Pain Or Fever > 100.5 Continue allopurinoL [Zyloprim] 200 mg PO DAILY@0700 Nitroglycerin Sl Tabs [Nitrostat] 0.4 mg SL Q5M PRN PRN Reason: Chest Pain Omeprazole 20 mg PO DAILY@0700 Latanoprost/Pf [Latanoprost 0.005% Eye Drop] 1 drop BOTH EYES DAILY@2000 Fluorometholone 0.1% Ophth Juanita [Fml] 1 drop RIGHT EYE DAILY@1200 Ondansetron HCl [Zofran] 4 mg PO Q6H PRN PRN Reason: Nausea bisacodyL 10 mg RECTAL Q72H PRN PRN Reason: Constipation Sodium Chloride [Saline Mist] 1 spray EA NOSTRIL Q2H PRN PRN Reason: nasal dryness Melatonin 5 mg PO HS@2100 Dorzolamide/Timolol/Pf [Cosopt Pf 2%/0.5% Ophth Droperette] 1 drop BOTH EYES BID@0700,2100 Bisacodyl 10 mg PO Q72H PRN PRN Reason: Constipation Atropine Ophth Soln 1% 5Ml [Isopto Atropine 1% 5Ml] 2 drops SUBLINGUAL Q2H PRN PRN Reason: excess secretions Apixaban [Eliquis] 2.5 mg PO BID@0700,1700 Epoetin Josh [Procrit] 20,000 units SQ Q7D Liquicel 30 ml PO BID@0700,1700 carvediloL [Coreg] 3.125 mg PO BID@0700,1700 Albuterol Nebulized [Ventolin Nebulized] 2.5 mg INHALATION RT-QID PRN PRN Reason: Wheezing Magnesium Hydroxide [Milk of Magnesia Concentrate] 7,200 mg PO Q24H PRN PRN Reason: Constipation Loratadine [Claritin] 10 mg PO DAILY@0700 levETIRAcetam [Keppra] 250 mg PO DAILY@1700 Folic Acid 1 mg PO DAILY@0700 Ergocalciferol [Vitamin D2 (1250 Mcg = 14730 Iu)] 1,250 mcg PO Q14D@1700 Lidocaine [Aspercreme Patch] 1 patch TOPICAL DAILY@1600 Liraglutide [Victoza 3-Jose] 1.8 mg SQ DAILY@1700 Albuterol Nebulized [Ventolin Nebulized] 2.5 mg INHALATION RT-QID@,,, Insulin Aspart [NovoLOG] 10 unit SQ TID-W/MEALS@, Insulin Aspart [NovoLOG] See Protocol SQ AC-TID@, Magnesium Oxide [Mag-Ox] 250 mg PO DAILY@1700 Changed Insulin Glargine [Lantus Vial] 55 unit SQ BID@0700,2100 #0 traMADol HCL [Ultram] 50 mg PO BID #4 tab Discontinued Sertraline HCl [Zoloft] 100 mg PO DAILY@0700 Acetaminophen Tab [Tylenol] 650 mg PO QID@,,, Pregabalin [Lyrica] 50 mg PO BID@0700,2100 Torsemide [Demadex] 20 mg PO DAILY@0900 Atorvastatin [Lipitor] 20 mg PO HS@2100 Discharge Medication List allopurinoL [Zyloprim] 200 mg PO DAILY@0700 07/24/17 [History] Fluorometholone 0.1% Ophth Juanita [Fml] 1 drop RIGHT EYE DAILY@1200 08/30/18 [History] Latanoprost/Pf [Latanoprost 0.005% Eye Drop] 1 drop BOTH EYES DAILY@199908/30/18 [History] Nitroglycerin Sl Tabs [Nitrostat] 0.4 mg SL Q5M PRN 08/30/18 [History] Omeprazole 20 mg PO DAILY@0700 08/30/18 [History] Ondansetron HCl [Zofran] 4 mg PO Q6H PRN 08/30/18 [History] Apixaban [Eliquis] 2.5 mg PO BID@0700,1700 08/06/20 [History] Atropine Ophth Soln 1% 5Ml [Isopto Atropine 1% 5Ml] 2 drops SUBLINGUAL Q2H PRN 08/06/20 [History] Bisacodyl 10 mg PO Q72H PRN 08/06/20 [History] Dorzolamide/Timolol/Pf [Cosopt Pf 2%/0.5% Ophth Droperette] 1 drop BOTH EYES BID@0700,209908/06/20 [History] Melatonin 5 mg PO HS@209908/06/20 [History] Sodium Chloride [Saline Mist] 1 spray EA NOSTRIL Q2H PRN 08/06/20 [History] bisacodyL 10 mg RECTAL Q72H PRN 08/06/20 [History] Albuterol Nebulized [Ventolin Nebulized] 2.5 mg INHALATION RT-QID PRN 11/28/20 [History] Epoetin Josh [Procrit] 20,000 units SQ Q7D 11/28/20 [History] Liquicel 30 ml PO BID@0700,1700 11/28/20 [History] Liraglutide [Victoza 3-Jose] 1.8 mg SQ DAILY@169911/28/20 [History] carvediloL [Coreg] 3.125 mg PO BID@0700,1700 11/28/20 [History] Albuterol Nebulized [Ventolin Nebulized] 2.5 mg INHALATION RT-QID@01,07,13,19 04/15/21 [History] Ergocalciferol [Vitamin D2 (1250 Mcg = 70395 Iu)] 1,250 mcg PO Q14D@17004/15/21 [History] Folic Acid 1 mg PO DAILY@0700 04/15/21 [History] Insulin Aspart [NovoLOG] 10 unit SQ TID-W/MEALS@,,04/15/21 [History] Insulin Aspart [NovoLOG] See Protocol SQ AC-TID@,,04/15/21 [History] Lidocaine [Aspercreme Patch] 1 patch TOPICAL DAILY@1600 04/15/21 [History] Loratadine [Claritin] 10 mg PO DAILY@0700 04/15/21 [History] Magnesium Hydroxide [Milk of Magnesia Concentrate] 7,200 mg PO Q24H PRN 04/15/21 [History] Magnesium Oxide [Mag-Ox] 250 mg PO DAILY@1700 04/15/21 [History] levETIRAcetam [Keppra] 250 mg PO DAILY@1700 04/15/21 [History] Acetaminophen Tab [Tylenol] 650 mg PO Q6HR PRN tab 04/23/21 [Rx] Collagenase [Santyl] 1 applic TOPICAL DAILY@1000 gm 04/23/21 [Rx] Insulin Glargine [Lantus Vial] 55 unit SQ BID@0700,2100 #0 04/23/21 [Rx] Ipratropium-Albuterol Nebulize [Duoneb 0.5 mg-3 mg/3 ml Soln] 3 ml INHALATION RT-QID PRN ml 04/23/21 [Rx] traMADol HCL [Ultram] 50 mg PO BID #4 tab 04/23/21 [Rx] Follow up Appointment(s)/Referral(s): Pankaj Zendejas MD [Primary Care Provider] - 1-2 days [facility] [NON-STAFF] - 1 Week [facility], [NON-STAFF] - As Needed Ambulatory/Diagnostic Orders: Complete Blood Count w/diff [LAB.AMB] Time Frame: 3 Days, Location: None Selected Activity/Diet/Wound Care/Special Instructions: Patient is returning to [facility] on the mistry Activity as tolerated Continue taking medications as prescribed Continue with IV antibiotic therapy per infectious disease recommendations Follow-up with nephrology outpatient closely in one week Recommend repeat labs of CBC, BMP, magnesium in 2-3 days Continue with sliding scale along with long-acting NovoLog sliding scale 0-150 equals 0 units 151-200 equals 2 units 201-250 equals 4 units 251-300 equals 6 units 301-350 equals 8 units 351-400 equals 10 units Please notify provider if blood sugar is 400 or above Continue Accu-Cheks before meals and at bedtime Continue with local wound care to the right foot ulcer wound by cleansing the area daily with normal saline and applying Santyl ointment to the right heel then wet-to-dry dressing and Kerlix and Idris wrap and elevate lower extremities while at rest Continue dysphasia 3 chopped diet following renal low potassium low phosphorus and fluid restrictions of 1500 mL daily Continue oral supplements of Charanjit at lunch and dinner unflavored Discharge Disposition: TRANSFER TO SNF/ECF
[2021-04-23] MEDS: LIDOCAINE 5% PATCH TOPICAL SCH (16:40)
[2021-04-23] MEDS: levETIRAcetam 250 MG TAB PO SCH (16:58)
[2021-04-23] MEDS: MAGNESIUM OXIDE 400 MG TAB PO SCH (16:59)
[2021-04-23 17:26] LABS: Glucose,Whole Blood 153 mg/dL (75-99)
[2021-04-23 17:27] VITALS: BP 155/67; PULSE 68; RESP 18; TEMP 98.2
--- NOTE | 2021-04-23 19:35 | PN ---
PROGRESS NOTE DATE OF SERVICE: 04/23/2021 REASON FOR FOLLOWUP: 1. UTI. 2. Right heel osteomyelitis. INTERVAL HISTORY: The patient is afebrile. The patient doing well this morning. The patient is breathing comfortably. She is hemodynamically stable. No chest pain, shortness of breath, or cough. No abdominal pain or pain to the right heel area. PHYSICAL EXAMINATION: Blood pressure is 115/66, pulse of 78, temperature 98.9. She is ( )% on 4 L nasal cannula. General description is a middle-aged female lying in bed in no distress. Respiratory system: Unlabored breathing, clear to auscultation anteriorly. Heart S1, S2. Regular rate and rhythm. Abdomen soft, no tenderness. Right heel is currently dressed up. LABS: Hemoglobin 11.1, white count 10.2, BUN of 110, creatinine is 2.2. DIAGNOSTIC IMPRESSION AND PLAN: 1. Patient with urinary tract infection, adequately treated. 2. Patient with right heel infected pressure ulcer stage IV with underlying acute osteomyelitis. Patient did have an underlying diabetes mellitus as a risk factor and culture positive for MRSA, Pseudomonas and ESBL E coli. Plan is for daptomycin and meropenem for six weeks, local wound care per Surgery and close outpatient followup. MMODL / IJN: [id number] /
== END 2021-04-23 18:00 | DRG 853 ==
LOC: EC 17:25 → 4SSUR 20:44 → 1SOBS 04-16 12:58 → 5NMEDONC 04-17 14:43
PROVIDERS: ADMIT Hospitalist; ATTEND Hospitalist
PROC: 0JBQ0ZZ Excision of Right Foot Subcutaneous Tissue and Fascia, Open Approach (ICD-10-PCS; principal; 2021-04-15)
PROC: 5A09357 Assistance with Respiratory Ventilation, Less than 24 Consecutive Hours, Continuous Positive Airway Pressure (ICD-10-PCS; 2021-04-18)
PROC: 02HV33Z Insertion of Infusion Device into Superior Vena Cava, Percutaneous Approach (ICD-10-PCS; 2021-04-22)
DX: A41.02 Sepsis due to Methicillin resistant Staphylococcus aureus (principal); L89.614 Pressure ulcer of right heel, stage 4; J96.21 Acute and chronic respiratory failure with hypoxia; J96.22 Acute and chronic respiratory failure with hypercapnia; N17.0 Acute kidney failure with tubular necrosis; M86.171 Other acute osteomyelitis, right ankle and foot; E11.52 Type 2 diabetes mellitus with diabetic peripheral angiopathy with gangrene; E66.2 Morbid (severe) obesity with alveolar hypoventilation; E87.2 Acidosis; I13.0 Hypertensive heart and chronic kidney disease with heart failure and stage 1 through stage 4 chronic kidney disease, or unspecified chronic kidney disease; I50.32 Chronic diastolic (congestive) heart failure; I69.351 Hemiplegia and hemiparesis following cerebral infarction affecting right dominant side; N18.4 Chronic kidney disease, stage 4 (severe); N39.0 Urinary tract infection, site not specified; Z68.42 Body mass index [BMI] 45.0-49.9, adult; E11.69 Type 2 diabetes mellitus with other specified complication; B96.5 Pseudomonas (aeruginosa) (mallei) (pseudomallei) as the cause of diseases classified elsewhere; B96.4 Proteus (mirabilis) (morganii) as the cause of diseases classified elsewhere; E11.22 Type 2 diabetes mellitus with diabetic chronic kidney disease; E11.649 Type 2 diabetes mellitus with hypoglycemia without coma; F03.90 Unspecified dementia, unspecified severity, without behavioral disturbance, psychotic disturbance, mood disturbance, and anxiety; F32.9 Major depressive disorder, single episode, unspecified; J44.9 Chronic obstructive pulmonary disease, unspecified; Z66 Do not resuscitate; Z79.4 Long term (current) use of insulin; T38.0X5A Adverse effect of glucocorticoids and synthetic analogues, initial encounter; E78.5 Hyperlipidemia, unspecified; E87.5 Hyperkalemia; F41.9 Anxiety disorder, unspecified; K21.9 Gastro-esophageal reflux disease without esophagitis; I25.10 Atherosclerotic heart disease of native coronary artery without angina pectoris; T39.395A Adverse effect of other nonsteroidal anti-inflammatory drugs [NSAID], initial encounter; I48.91 Unspecified atrial fibrillation; R13.10 Dysphagia, unspecified; M10.9 Gout, unspecified; Z79.01 Long term (current) use of anticoagulants; Z20.822 Contact with and (suspected) exposure to COVID-19; T36.8X5A Adverse effect of other systemic antibiotics, initial encounter; Z79.82 Long term (current) use of aspirin; Z79.899 Other long term (current) drug therapy; Z86.711 Personal history of pulmonary embolism; Z86.718 Personal history of other venous thrombosis and embolism; Z90.89 Acquired absence of other organs; Z98.890 Other specified postprocedural states
CPT/HCPCS: 36415; 36573; 36600; 70450; 71045; 80048; 80053; 80202; 81001; 82140; 82805; 83036; 83605; 83735; 83880; 84132; 84145; 84484; 85025; 85652; 86140; 87070; 87075; 87077; 87086; 87186; 87205; 87324; 87635; 93005; 94640; 94660; 94760; 96365; 96375; 99285

== ENCOUNTER 2023-06-18 10:26 | Inpatient (IN) | payer MEDICARE, OTHER ==
--- NOTE | 2023-06-18 11:54 | ED ---
General Adult HPI - General Chief complaint: Recheck/Abnormal Lab/Rx Stated complaint: Abnormal Labs Time Seen by Provider: 06/18/23 10:51 Source: EMS, RN notes reviewed Limitations: altered mental status - History of Present Illness Initial comments: 67-year-old female with past medical history presents the emergency department with a chief complaint of CVA, diabetes, hypertension, pulmonary embolism and end-stage renal disease presents to the emergency department with a chief complaint of abnormal laboratory studies. Patient presents from [facility]. Per EMS patient had abnormal laboratory studies. She does report having a slight nonproductive cough with nausea and vomiting. Patient is alert and oriented 2 which is her baseline. Patient has right sided deficits at Baseline from previous CVA. - Related Data Home Medications Medication Instructions Recorded Confirmed allopurinoL [Zyloprim] 200 mg PO DAILY@0700 07/24/17 04/15/21 Fluorometholone 0.1% Ophth Juanita 1 drop RIGHT EYE DAILY@1200 08/30/18 04/15/21 [Fml] Latanoprost/Pf [Latanoprost 0.005% 1 drop BOTH EYES DAILY@199908/30/18 04/15/21 Eye Drop] Nitroglycerin Sl Tabs [Nitrostat] 0.4 mg SL Q5M PRN 08/30/18 04/15/21 Omeprazole 20 mg PO DAILY@0700 08/30/18 04/15/21 ondansetron HCL [Zofran] 4 mg PO Q6H PRN 08/30/18 04/15/21 Apixaban [Eliquis] 2.5 mg PO BID@0700,1700 08/06/20 04/15/21 Atropine Ophth Soln 1% 5Ml [Isopto 2 drops SUBLINGUAL Q2H PRN 08/06/20 04/15/21 Atropine 1% 5Ml] Dorzolamide/Timolol/Pf [Cosopt Pf 1 drop BOTH EYES BID@0700,209908/06/20 04/15/21 2%/0.5% Ophth Droperette] Melatonin 5 mg PO HS@209908/06/20 04/15/21 Sodium Chloride [Saline Mist] 1 spray EA NOSTRIL Q2H PRN 08/06/20 04/15/21 bisacodyL 10 mg RECTAL Q72H PRN 08/06/20 04/15/21 bisacodyL [Bisacodyl] 10 mg PO Q72H PRN 08/06/20 04/15/21 Albuterol Nebulized [Ventolin 2.5 mg INHALATION RT-QID PRN 11/28/20 04/15/21 Nebulized] Epoetin Josh [Procrit] 20,000 units SQ Q7D 11/28/20 04/15/21 Liquicel 30 ml PO BID@0700,1700 11/28/20 04/15/21 Liraglutide [Victoza 3-Jose] 1.8 mg SQ DAILY@1700 11/28/20 04/15/21 carvediloL [Coreg] 3.125 mg PO BID@0700,1700 11/28/20 04/15/21 Albuterol Nebulized [Ventolin 2.5 mg INHALATION 04/15/21 04/15/21 Nebulized] RT-QID@,,, Ergocalciferol [Vitamin D2 (1250 1,250 mcg PO Q14D@17004/15/21 04/15/21 Mcg = 33255 Iu)] Folic Acid 1 mg PO DAILY@0700 04/15/21 04/15/21 Insulin Aspart [NovoLOG] 10 unit SQ TID-W/MEALS@,,04/15/21 04/15/21 Insulin Aspart [NovoLOG] See Protocol SQ AC-TID@,,04/15/21 04/15/21 Lidocaine [Aspercreme Patch] 1 patch TOPICAL DAILY@1600 04/15/21 04/15/21 Loratadine [Claritin] 10 mg PO DAILY@0700 04/15/21 04/15/21 Magnesium Hydroxide [Milk of 7,200 mg PO Q24H PRN 04/15/21 04/15/21 Magnesia Concentrate] Magnesium Oxide [Mag-Ox] 250 mg PO DAILY@1700 04/15/21 04/15/21 levETIRAcetam [Keppra] 250 mg PO DAILY@1700 04/15/21 04/15/21 Previous Rx's Medication Instructions Recorded Acetaminophen Tab [Tylenol] 650 mg PO Q6HR PRN tab 04/23/21 Collagenase [Santyl Ointment] 1 applic TOPICAL DAILY@1000 gm 04/23/21 DAPTOmycin [Cubicin] 600 mg IVPB Q48H 42 Days #21 each 04/23/21 Insulin Glargine [Lantus Vial] 55 unit SQ BID@0700,2100 #0 04/23/21 Ipratropium-Albuterol Nebulize 3 ml INHALATION RT-QID PRN ml 04/23/21 [Duoneb 0.5 mg-3 mg/3 ml Soln] Meropenem [Merrem] 1 gm IVPB Q12HR 40 Days #84 each 04/23/21 traMADol HCL [Ultram] 50 mg PO BID #4 tab 04/23/21 Allergies Allergy/AdvReac Type Severity Reaction Status Date / Time ceresin [From Eucerin] Allergy Unknown Verified 06/18/23 15:02 emollient combination no.33 Allergy Unknown Verified 06/18/23 15:02 [From Eucerin] Iodinated Contrast Media Allergy Rash/Hives Verified 06/18/23 15:02 isopropyl myristate Allergy Unknown Verified 06/18/23 15:02 [From Eucerin] lanolin alcohols Allergy Unknown Verified 06/18/23 15:02 [From Eucerin] mineral oil [From Eucerin] Allergy Unknown Verified 06/18/23 15:02 Penicillins Allergy Rash/Hives Verified 06/18/23 15:02 petrolatum,white Allergy Unknown Verified 06/18/23 15:02 [From Eucerin] soap [From Eucerin] Allergy Unknown Verified 06/18/23 15:02 tuberculin,PPD,multi-puncture Allergy Unknown Verified 06/18/23 15:02 warfarin Allergy Unknown Verified 06/18/23 15:02 water [From Eucerin] Allergy Unknown Verified 06/18/23 15:02 codeine AdvReac Itching Verified 06/18/23 15:02 muscle rub Allergy Unknown Uncoded 06/18/23 15:02 Review of Systems ROS Statement: Those systems with pertinent positive or pertinent negative responses have been documented in the HPI. ROS Other: All systems not noted in ROS Statement are negative. Past Medical History Past Medical History: Coronary Artery Disease (CAD), Heart Failure, CVA/TIA, Diabetes Mellitus, Deep Vein Thrombosis (DVT), GERD/Reflux, Hypertension, Pulmonary Embolus (PE), Renal Disease Additional Past Medical History / Comment(s): tremmors, right sided weakness from CVA. Immobile uses hiral lift at [facility]. History of Any Multi-Drug Resistant Organisms: None Reported Date of last positivie culture/infection: 04/18/21 MDRO Source:: MRSA HEEL Past Surgical History: Tonsillectomy Additional Past Surgical History / Comment(s): G tube, pressure pump right eye Past Anesthesia/Blood Transfusion Reactions: No Reported Reaction Past Psychological History: Anxiety, Depression Smoking Status: Never smoker Past Alcohol Use History: None Reported Past Drug Use History: None Reported - Past Family History Father History Unknown: Yes Family Medical History: No Reported History, Unable to Obtain Mother History Unknown: Yes Family Medical History: No Reported History, Unable to Obtain General Exam - General Exam Comments Initial Comments: General: Alert, in no acute distress Head: atraumatic normocephalic. Eyes PERRL, EOMI intact, mucous membranes moist Respiratory: Lungs clear to auscultation bilaterally Cardiovascular: Regular rate and rhythm Chest: With this catheter to right upper chest without surrounding erythema or tenderness Abdominal: Soft without guarding or rebound Extremities: Normal inspection with full range of motion and normal capillary refill right sided deficits Neuroogic: alert and oriented 3, CN II-XII intact, able to ambulate with steady gait Skin: warm dry and intact with normal color Limitations: altered mental status Course Vital Signs 06/18/23 06/18/23 06/18/23 10:43 14:11 16:28 Temperature 98.2 F 99.2 F Pulse Rate 77 72 75 Respiratory 16 18 18 Rate Blood Pressure 177/76 158/74 162/67 O2 Sat by Pulse 99 100 99 Oximetry - Reevaluation(s) Reevaluation #1: 06/18/23 12:02 Reevaluated. Patient family verifies history. They report patient had dialysis port placed on 12/2022. She has had intermittent nausea and vomiting. She usually receives dialysis Thursday. She was not dialyzed yesterday due to her nausea. Patient reports that she was called for the high white blood cell count and elevated liver enzymes. Reevaluation #2: 06/18/23 15:57 Case discussed with Shelbie, who verbalizes she is agreeable to the plan for admission Medical Decision Making - Medical Decision Making Was pt. sent in by a medical professional or institution (, PA, [employer], urgent care, hospital, or fdc...) When possible be specific @ -[facility] Did you speak to anyone other than the patient for history (EMS, parent, family, police, friend...)? What history was obtained from this source @ -[No] Did you review nursing and triage notes (agree or disagree)? Why? @ -[I reviewed and agree with nursing and triage notes] Were old charts reviewed (outside hosp., previous admission, EMS record, old EKG, old radiological studies, urgent care reports/EKG's, fdc records)? Report findings @ -[No old charts were reviewed] Differential Diagnosis (chest pain, altered mental status, abdominal pain women, abdominal pain men, vaginal bleeding, weakness, fever, dyspnea, syncope, headache, dizziness, GI bleed, back pain, seizure, CVA, palpatations, mental health, musculoskeletal)? @ -[not applicable] EKG interpreted by me (3pts min.). @ -[As above] X-rays interpreted by me (1pt min.). @ -Yes CT interpreted by me (1pt min.). @ No U/S interpreted by me (1pt. min.). @ -US reveals multiple gallstones in the gall bladder with common bile duct with dilation of 8mm What testing was considered but not performed or refused? (CT, X-rays, U/S, labs)? Why? @ -[None] What meds were considered but not given or refused? Why? @ -[None] Did you discuss the management of the patient with other professionals (professionals i.e. ERIN Monahan, [employer]ER, lab, RT, psych nurse, social work job titles, corporate lawyer, teacher, nuclear officer, rn case management)? Give summary @ -[facility] who agrees with the plan of care and accepts the patient for admission Was smoking cessation discussed for >3mins.? @ -[No] Was critical care preformed (if so, how long)? @ -[No] Were there social determinants of health that impacted care today? How? (Homelessness, low income, unemployed, alcoholism, drug addiction, transportat ion, low edu. Level, literacy, decrease access to med. care, custodial, rehab)? @ -[No] Was there de-escalation of care discussed even if they declined (Discuss DNR or withdrawal of care, Hospice)? DNR status @ -Patient is DNR status What co-morbidities impacted this encounter? (DM, HTN, Smoking, COPD, CAD, Cancer, CVA, ARF, Chemo, Hep., AIDS, mental health diagnosis, sleep apnea, morbid obesity)? @ -HTN, CVA ESRD Was patient admitted / discharged? Hospital course, mention meds given and route, prescriptions, significant lab abnormalities, going to OR and other pertinent info. @ -Admission. This is a pleasant 67-year-old female with past medical history significant for end-stage renal disease, CVA presents the emergency department with a chief complaint of elevated liver enzymes. Patient had a thorough history and physical exam performed on the ED. Physical exam is essentially unremarkable. Patient is alert and oriented 2 which is baseline. Patient had laboratory studies which revealed WBC 9.3 potassium 3.3 BUN 20, creatinine 2.26 AST 71, ALT 130 alk phos 440 total bilirubin is 1.1 Due to the elevation of liver enzymes imaging was ordered. I interpreted the following: Ultrasound of the gallbladder and liver reveals multiple gallstones with possible obstructing stone to the common bile duct. Common bile duct has 8 mm dilation. Chest x-ray reveals borderline cardiomegaly with trace left pleural effusion. Was discussed with the patient's family member Shelbie, who is agreeable with the plan for admission with surgical consult. Patient will be started on prophylactic antibiotics. Case is discussed with [facility] who agrees and the patient for admission with consult to Dr. lin. Due to the medical complexity, patient symptoms and labratory studies and imahging results is my decision to admit the patient for at least 2 overnight stays for further observation and needed consults. Case discussed with Dr. Mosley ED attending who agrees with POC. Undiagnosed new problem with uncertain prognosis? @ -[No] Drug Therapy requiring intensive monitoring for toxicity (Heparin, Nitro, Insulin, Cardizem)? @ -[No] Were any procedures done? @ -[No] Diagnosis/symptom? @ -Transaminitis -Cholelithiasis -Common Bile Duct Dilation - Nausea and Vomiting - Hx of CVA Acute, or Chronic, or Acute on Chronic? @ -Acute Uncomplicated (without systemic symptoms) or Complicated (systemic symptoms)? @ -Uncomplicated Side effects of treatment? @ -[No] Exacerbation, Progression, or Severe Exacerbation? @ -[No] Poses a threat to life or bodily function? How? (Chest pain, [place], [place], pneumonia, PE, COPD, DKA, ARF, appy, cholecystitis, CVA, Diverticulitis, Homicidal, Suicidal, threat to staff... and all critical care pts) @ Yes, cholelithiasis - Lab Data Result diagrams: 06/18/23 11:41 06/18/23 11:41 Lab Results 06/18/23 06/18/23 06/18/23 Range/Units 11:41 11:41 11:41 WBC 9.3 (3.8-10.6) k/uL RBC 2.79 L (3.80-5.40) m/uL Hgb 8.7 L (11.4-16.0) gm/dL Hct 27.9 L (34.0-46.0) % MCV 99.8 (80.0-100.0) fL MCH 31.1 (25.0-35.0) pg MCHC 31.1 (31.0-37.0) g/dL RDW 13.5 (11.5-15.5) % Plt Count 252 (150-450) k/uL MPV 8.7 Neutrophils % 77 % Lymphocytes % 15 % Monocytes % 4 % Eosinophils % 3 % Basophils % 0 % Neutrophils # 7.2 (1.3-7.7) k/uL Lymphocytes # 1.4 (1.0-4.8) k/uL Monocytes # 0.4 (0-1.0) k/uL Eosinophils # 0.3 (0-0.7) k/uL Basophils # 0.0 (0-0.2) k/uL Hypochromasia Moderate Sodium 138 (137-145) mmol/L Potassium 3.3 L (3.5-5.1) mmol/L Chloride 95 L (98-107) mmol/L Carbon Dioxide 32 H (22-30) mmol/L Anion Gap 11 mmol/L BUN 23 H (7-17) mg/dL Creatinine 2.26 H (0.52-1.04) mg/dL Est GFR (CKD-EPI)AfAm 25 (>60 ml/min/1.73 sqM) Est GFR (CKD-EPI)NonAf 22 (>60 ml/min/1.73 sqM) Glucose 124 H (74-99) mg/dL Plasma Lactic Acid Ho (0.7-2.0) mmol/L Calcium 8.3 L (8.4-10.2) mg/dL Total Bilirubin 1.1 (0.2-1.3) mg/dL AST 71 H (14-36) U/L ALT 130 H (4-34) U/L Alkaline Phosphatase 447 H (38-126) U/L NT-Pro-B Natriuret Pep pg/mL Total Protein 5.5 L (6.3-8.2) g/dL Albumin 2.9 L (3.5-5.0) g/dL Urine Color Light Yellow Urine Appearance Cloudy H (Clear) Urine pH 7.5 (5.0-8.0) Ur Specific [place] 1.006 (1.001-1.035) Urine Protein 3+ H (Negative) Urine Glucose (UA) 1+ H (Negative) Urine Ketones Negative (Negative) Urine Blood Trace H (Negative) Urine Nitrite Negative (Negative) Urine Bilirubin Negative (Negative) Urine Urobilinogen <2.0 (<2.0) mg/dL Ur Leukocyte Esterase Large H (Negative) Urine RBC 4 (0-5) /hpf Urine WBC 113 H (0-5) /hpf Urine WBC Clumps Many H (None) /hpf Ur Squamous Epith Cells <1 (0-4) /hpf Urine Bacteria Many H (None) /hpf Urine Mucus Rare H (None) /hpf Urine Yeast (Budding) Few H (None) /hpf Influenza Type A (PCR) (Not Detectd) Influenza Type B (PCR) (Not Detectd) RSV (PCR) (Not Detectd) SARS-CoV-2 (PCR) (Not Detectd) 06/18/23 06/18/23 06/18/23 Range/Units 11:41 11:41 15:18 WBC (3.8-10.6) k/uL RBC (3.80-5.40) m/uL Hgb (11.4-16.0) gm/dL Hct (34.0-46.0) % MCV (80.0-100.0) fL MCH (25.0-35.0) pg MCHC (31.0-37.0) g/dL RDW (11.5-15.5) % Plt Count (150-450) k/uL MPV Neutrophils % % Lymphocytes % % Monocytes % % Eosinophils % % Basophils % % Neutrophils # (1.3-7.7) k/uL Lymphocytes # (1.0-4.8) k/uL Monocytes # (0-1.0) k/uL Eosinophils # (0-0.7) k/uL Basophils # (0-0.2) k/uL Hypochromasia Sodium (137-145) mmol/L Potassium (3.5-5.1) mmol/L Chloride (98-107) mmol/L Carbon Dioxide (22-30) mmol/L Anion Gap mmol/L BUN (7-17) mg/dL Creatinine (0.52-1.04) mg/dL Est GFR (CKD-EPI)AfAm (>60 ml/min/1.73 sqM) Est GFR (CKD-EPI)NonAf (>60 ml/min/1.73 sqM) Glucose (74-99) mg/dL Plasma Lactic Acid Ho 0.7 (0.7-2.0) mmol/L Calcium (8.4-10.2) mg/dL Total Bilirubin (0.2-1.3) mg/dL AST (14-36) U/L ALT (4-34) U/L Alkaline Phosphatase (38-126) U/L NT-Pro-B Natriuret Pep 9780 pg/mL Total Protein (6.3-8.2) g/dL Albumin (3.5-5.0) g/dL Urine Color Urine Appearance (Clear) Urine pH (5.0-8.0) Ur Specific [place] (1.001-1.035) Urine Protein (Negative) Urine Glucose (UA) (Negative) Urine Ketones (Negative) Urine Blood (Negative) Urine Nitrite (Negative) Urine Bilirubin (Negative) Urine Urobilinogen (<2.0) mg/dL Ur Leukocyte Esterase (Negative) Urine RBC (0-5) /hpf Urine WBC (0-5) /hpf Urine WBC Clumps (None) /hpf Ur Squamous Epith Cells (0-4) /hpf Urine Bacteria (None) /hpf Urine Mucus (None) /hpf Urine Yeast (Budding) (None) /hpf Influenza Type A (PCR) Not Detected (Not Detectd) Influenza Type B (PCR) Not Detected (Not Detectd) RSV (PCR) Not Detected (Not Detectd) SARS-CoV-2 (PCR) Not Detected (Not Detectd) Disposition Clinical Impression: History of CVA (cerebrovascular accident), Nausea & vomiting, Transaminitis, Cholelithiasis, Common bile duct dilatation Disposition: ADMITTED IP TO THIS HOSP Condition: Fair Is patient prescribed a controlled substance at d/c from ED?: No Referrals: Pankaj Zendejas MD [Primary Care Provider] - 1-2 days Time of Disposition: 16:17
[2023-06-18 11:55] LABS: Basophils % (A) 0 %; Eosinophils # (A) 0.3 k/uL (0-0.7); Eosinophils % (A) 3 %; HCT 27.9 % (34.0-46.0); HGB 8.7 gm/dL (11.4-16.0); Hypochromasia Moderate; Lymphocytes # (A) 1.4 k/uL (1.0-4.8); Lymphocytes % (A) 15 %; MCH 31.1 pg (25.0-35.0); MCHC 31.1 g/dL (31.0-37.0); MCV 99.8 fL (80.0-100.0); Mean Platelet Volume 8.7; Monocytes # (A) 0.4 k/uL (0-1.0); Monocytes % (A) 4 %; Neutrophils # (A) 7.2 k/uL (1.3-7.7); Neutrophils % (A) 77 %; Platelet Count 252 k/uL (150-450); RBC 2.79 m/uL (3.80-5.40); RDW 13.5 % (11.5-15.5); WBC 9.3 k/uL (3.8-10.6)
[2023-06-18 12:08] LABS: ALT 130 U/L (4-34); AST 71 U/L (14-36); African American GFR (CKD) 25 (>60 ml/min/1.73 sqM); Albumin 2.9 g/dL (3.5-5.0); Alkaline Phosphatase 447 U/L (38-126); Anion Gap 11 mmol/L; Blood Urea Nitrogen 23 mg/dL (7-17); Calcium 8.3 mg/dL (8.4-10.2); Carbon Dioxide 32 mmol/L (22-30); Chloride 95 mmol/L (98-107); Glucose 124 mg/dL (74-99); Non-African American GFR(CKD) 22 (>60 ml/min/1.73 sqM); Potassium 3.3 mmol/L (3.5-5.1); Sodium 138 mmol/L (137-145); Total Bilirubin 1.1 mg/dL (0.2-1.3); Total Protein 5.5 g/dL (6.3-8.2)
[2023-06-18 12:45] LABS: Appearance,Urine Cloudy (Clear); Bacteria,Urine Many /hpf; Bilirubin,Urine Negative (Negative); Blood,Urine Trace (Negative); Budding Yeast,Urine Few /hpf; Color,Urine Light Yellow; Glucose,Urine (UA) 1+ (Negative); Ketones,Urine Negative (Negative); Leukocyte Esterase,Urine Large (Negative); Mucus,Urine Rare /hpf; Nitrite,Urine Negative (Negative); PH, Urine 7.5 (5.0-8.0); Protein,Urine 3+ (Negative); RBC,Urine 4 /hpf (0-5); Specific Gravity,Urine 1.006 (1.001-1.035); Squamous Epithelial Cell,Urine <1 /hpf (0-4); Urobilinogen,Urine <2.0 mg/dL (<2.0); WBC,Urine 113 /hpf (0-5)
--- NOTE | 2023-06-18 13:53 | XR ---
EXAMINATION TYPE: XR chest 2V DATE OF EXAM: 06/18/2023 COMPARISON: 04/17/2021 HISTORY: 67-year-old female with cough, weakness, shortness of breath TECHNIQUE: AP and lateral views FINDINGS: Right-sided double-lumen hemodialysis catheter tips at the expected cavoatrial junction. Large calibe r left-sided CVC catheter in the right atrium. Heart is borderline enlarged. Low lung volumes and crowded vascular markings and interstitial promine nce. Possible trace left pleural effusion. IMPRESSION: 1. Borderline cardiomegaly and limitations due to large body habitus and hypoventilatory changes. Cor relate for possible mild pulmonary vascular congestion. 2. Trace left pleural effusion with adjacent atelectasis and/or consolidation.
--- NOTE | 2023-06-18 15:16 | US ---
EXAMINATION TYPE: US gallbladder DATE OF EXAM: 06/18/2023 COMPARISON: NONE CLINICAL INDICATION: Female, 67 years old with history of Transaminitis; TECHNIQUE: Multiple sonographic images of the right upper quadrant are obtained. FINDINGS: EXAM MEASUREMENTS: Liver Length: 17.4 cm Gallbladder Wall: 0.3 cm CBD: 0.8 cm Right Kidney: 13.1x5.6x6.8 cm ORDER ADMINISTRATOR NOTES: Exam very limited by bowel, large body habitus, patient inability to change positi oning and hold deep inspiration Pancreas: Tail obscured by overlying bowel gas Liver: Limited detailed assessment. Borderline enlarged at 17.4 cm. Possible double duct signs. Gallbladder: packed with stones, ISHAN sign, wall is at upper limits of normal. [employer] Operator notes: No pain scanning this area Evidence for sonographic Remy's sign: No CBD: Dilated. Right Kidney: 13.1x5.6x6.8cm IMPRESSION: 1. The gallbladder is packed with calculi and is mostly obscured by the extensive shadowing. 2. Bile duct dilated at 8 mm. Questionable double ducts within the liver that could reflect intrahepa tic biliary ductal dilatation. Correlate for possible biliary obstruction with alkaline phosphatase a nd bilirubin levels.
[2023-06-18] MEDS ORDERED: metroNIDAZOLE-NS PMX 500 MG in SALINE 1 100ML.BAG IVPB STA (16:04)
[2023-06-18] MEDS ORDERED: CEFEPIME 2 GM in SODIUM CHLORIDE 0.9% 100 ML IVPB STA (16:04)
[2023-06-18] MEDS ORDERED: NALOXONE 0.4 MG/ML 1 ML VIAL IV PRN (16:31)
[2023-06-18] MEDS ORDERED: ONDANSETRON 4 MG/2 ML VIAL IVP PRN (16:31)
[2023-06-18 18:42] LABS: Glucose,Whole Blood 146 mg/dL (70-110)
[2023-06-19 07:20] LABS: Glucose,Whole Blood 197 mg/dL (70-110)
[2023-06-19 07:25] LABS: Basophils # (A) 0.1 k/uL (0-0.2); Basophils % (A) 1 %; Eosinophils # (A) 0.3 k/uL (0-0.7); Eosinophils % (A) 3 %; HCT 26.8 % (34.0-46.0); HGB 8.3 gm/dL (11.4-16.0); Hypochromasia Marked; Lymphocytes # (A) 1.6 k/uL (1.0-4.8); Lymphocytes % (A) 20 %; MCH 31.7 pg (25.0-35.0); MCHC 31.1 g/dL (31.0-37.0); MCV 101.8 fL (80.0-100.0); Macrocytosis Slight; Mean Platelet Volume 9.4; Monocytes # (A) 0.5 k/uL (0-1.0); Monocytes % (A) 6 %; Neutrophils # (A) 5.7 k/uL (1.3-7.7); Neutrophils % (A) 69 %; Platelet Count 241 k/uL (150-450); RBC 2.63 m/uL (3.80-5.40); RDW 13.1 % (11.5-15.5); WBC 8.2 k/uL (3.8-10.6)
[2023-06-19 07:38] LABS: ALT 85 U/L (4-34); AST 34 U/L (14-36); African American GFR (CKD) 16 (>60 ml/min/1.73 sqM); Albumin 2.7 g/dL (3.5-5.0); Albumin/Globulin Ratio 1.1; Alkaline Phosphatase 378 U/L (38-126); Anion Gap 13 mmol/L; Blood Urea Nitrogen 35 mg/dL (7-17); Calcium 8.3 mg/dL (8.4-10.2); Carbon Dioxide 28 mmol/L (22-30); Chloride 96 mmol/L (98-107); Globulin 2.4 g/dL; Glucose 183 mg/dL (74-99); Non-African American GFR(CKD) 14 (>60 ml/min/1.73 sqM); Potassium 3.5 mmol/L (3.5-5.1); Sodium 137 mmol/L (137-145); Total Bilirubin 0.9 mg/dL (0.2-1.3); Total Protein 5.1 g/dL (6.3-8.2)
[2023-06-19] MEDS ORDERED: bisacodyL 5 MG TABLET.DR PO PRN (09:02)
[2023-06-19] MEDS ORDERED: LOPERAMIDE 2 MG CAP PO PRN (09:02)
[2023-06-19] MEDS ORDERED: DEXTROSE 50% SYRINGE 50 ML IVP PRN ×2 (09:02)
[2023-06-19] MEDS: PANTOPRAZOLE 40 MG/10 ML VIAL IVP SCH ×2 (09:28→21:04)
[2023-06-19] MEDS: SERTRALINE 50 MG TAB PO SCH (09:28)
[2023-06-19] MEDS: ISOSORBIDE MONONITRATE ER 30 MG TAB.ER.24H PO SCH (09:28)
[2023-06-19] MEDS: ATORVASTATIN 10 MG TAB PO SCH (09:28)
[2023-06-19] MEDS: INSULIN DETEMIR (LEVEMIR) 100 UNIT/ML SYR SQ SCH (09:57)
--- NOTE | 2023-06-19 11:16 | P.GSCN ---
History of Present Illness Consult date: 06/19/23 History of present illness: CHIEF COMPLAINT: Abnormal labs HISTORY OF PRESENT ILLNESS: This is a 67-year-old female who was brought into the hospital due to abnormal labs with elevated liver enzymes. Patient has history of stroke and is a poor historian. Patient had abdominal ultrasound completed due to elevated liver enzymes results did show gallbladder is packed with calculi and is mostly obscured by the extensive shadowing. Bile duct dilated at 8 mm. Questionable double ducts within the liver that could reflect intrahepatic biliary ductal dilatation. Correlate for possible biliary obstruction. Patient has tolerated the liquids. No nausea or vomiting. She denies any abdominal pain. But is tender in the right upper quadrant on exam. Patient has history of PE and DVT last dose of Eliquis was 06/17/23. PAST MEDICAL HISTORY: See below and chronic kidney disease PAST SURGICAL HISTORY: See below MEDICATIONS: See below ALLERGIES: See below SOCIAL HISTORY: No illicit drug use. REVIEW OF SYSTEMS: CONSTITUTIONAL: Denies fever or chills. HEENT: Denies blurred vision, vision changes, or eye pain. Denies hemoptysis CARDIOVASCULAR: Denies chest pain or pressure. RESPIRATORY: No shortness of breath. GASTROINTESTINAL: See HPI for pertinent findings HEMATOLOGIC: Denies bleeding disorders. GENITOURINARY: Denies any blood in urine or increased urinary frequency. SKIN: Denies pruitis. Denies rash. PHYSICAL EXAM: VITAL SIGNS: Reviewed GENERAL: Well-developed in no acute distress. HEENT: No sclera icterus. Extraocular movements grossly intact. Moist buccal mucosa. Head is atraumatic, normocephalic. No nasal drainage. ABDOMEN: Soft. Obese. Nondistended. Mild right upper quadrant tenderness with palpation NEUROLOGIC: Alert and oriented. Cranial nerves II through XII grossly intact. LABORATORY DATA: WBC is 8.2 Hgb 8.3 platelets 241 Sodium 137 potassium 3.5 creatinine 3.35 Total bilirubin 0.9 AST 71 down to 34 ALT 1:30 down to 85 alk phos 447 down to 378 IMAGING: Gallbladder ultrasound results as stated above ASSESSMENT: 1. Cholecystitis. Cholelithiasis with right upper quadrant abdominal pain 2. Possible choledocholithiasis mildly elevated LFTs. Ultrasound did note bile duct dilation PLAN: -MRCP ordered for evaluation of possible choledocholithiasis -Recommend GI evaluation. Unfortunately GI services not available at this time. -Continue antibiotics -Continue clear liquid diet for now -Continue IV fluids -Continue supportive care -Hold Мария Physician Quality Manager note has been reviewed by physician. Signing provider agrees with the documented findings, assessment, and plan of care. I have personally seen and examined the patient, reviewed the GENERAL FARM MANAGER /PAs history, exam and MDM and agree with the assessment and plan as written. Based on total visit time, I have performed more than 50% of the visit. As above: Patient apparently was brought to the hospital because of outpatient lab studies showing elevated white blood cell count and elevated liver tests per the family. She apparently was noted to be yellow while she was at dialysis a few days ago. Liver enzymes were elevated here. Common bile duct mildly dilated. Unfortunately we have no GI coverage for possible ERCP. Patient does have mild right upper quadrant tenderness. There is some fullness there. Will proceed with MRCP. Patient may require transfer if choledocholithiasis still suspected. Continue antibiotics. 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 Staff uses hiral lift at [facility]. History of Any Multi-Drug Resistant Organisms: None Reported Year Discovered:: 04/18/21 MDRO Source:: MRSA HEEL Past Surgical History: Tonsillectomy Additional Past Surgical History / Comment(s): G-tube, pressure pump right eye; patient has new right chest dialysis port Past Anesthesia/Blood Transfusion Reactions: No Reported Reaction Past Psychological History: Anxiety, Depression Smoking Status: Never smoker Past Alcohol Use History: None Reported Past Drug Use History: None Reported - Past Family History Father History Unknown: Yes Family Medical History: No Reported History, Unable to Obtain Mother History Unknown: Yes Family Medical History: No Reported History, Unable to Obtain Medications and Allergies Home Medications Medication Instructions Recorded Confirmed Type Latanoprost/Pf [Latanoprost 0.005% 1 drop BOTH EYES DAILY@2100 08/30/18 06/18/23 History Eye Drop] Omeprazole 20 mg PO DIRECTED 08/30/18 06/18/23 History ondansetron HCL [Zofran] 4 mg PO Q4H PRN 08/30/18 06/18/23 History Apixaban [Eliquis] 2.5 mg PO BID@0700,1700 08/06/20 06/18/23 History Melatonin 5 mg PO HS@2100 08/06/20 06/18/23 History bisacodyL [Bisacodyl] 10 mg PO HS PRN 08/06/20 06/18/23 History Liquicel 30 ml PO BID@1200,1700 11/28/20 06/18/23 History carvediloL [Coreg] 3.125 mg PO MOWEFR@1700 11/28/20 06/18/23 History Ergocalciferol [Vitamin D2 (1250 1,250 mcg PO Q14D@1700 04/15/21 06/18/23 History Mcg = 56074 Iu)] levETIRAcetam [Keppra] 250 mg PO DAILY@1700 04/15/21 06/18/23 History Acetaminophen Tab [Tylenol] 650 mg PO Q4H PRN 06/18/23 06/18/23 History Atorvastatin [Lipitor] 10 mg PO DIRECTED 06/18/23 06/18/23 History Dialyvite 800mg 1 tab PO DAILY@1700 06/18/23 06/18/23 History Folic Acid 0.4 mg PO DAILY@0700 06/18/23 06/18/23 History Furosemide [Lasix] 40 mg PO BID@0700,1700 06/18/23 06/18/23 History Insulin Glargine [Lantus Vial] 45 unit SQ DAILY@0700 06/18/23 06/18/23 History Isosorbide Mononitrate ER [Imdur] 30 mg PO DAILY@0700 06/18/23 06/18/23 History Loperamide [Imodium] 2 - 4 mg PO QID PRN 06/18/23 06/18/23 History Sertraline [Zoloft] 50 mg PO DAILY@0700 06/18/23 06/18/23 History Sevelamer [Renvela] 1,600 mg PO AC-TID@07,12,17 06/18/23 06/18/23 History carvediloL [Coreg] 3.125 mg PO SUTUTHSA@0700,1700 06/18/23 06/18/23 History hydrALAZINE HCL [Apresoline] 25 mg PO MOWEFR@1200,2100 06/18/23 06/18/23 History hydrALAZINE HCL [Apresoline] 25 mg PO SUTUTHSA@0700,209906/18/23 06/18/23 History Allergies Allergy/AdvReac Type Severity Reaction Status Date / Time ceresin [From Eucerin] Allergy Unknown Verified 06/18/23 16:46 emollient combination no.33 Allergy Unknown Verified 06/18/23 16:46 [From Eucerin] Iodinated Contrast Media Allergy Rash/Hives Verified 06/18/23 16:46 isopropyl myristate Allergy Unknown Verified 06/18/23 16:46 [From Eucerin] lanolin alcohols Allergy Unknown Verified 06/18/23 16:46 [From Eucerin] mineral oil [From Eucerin] Allergy Unknown Verified 06/18/23 16:46 Penicillins Allergy Rash/Hives Verified 06/18/23 16:46 petrolatum,white Allergy Unknown Verified 06/18/23 16:46 [From Eucerin] soap [From Eucerin] Allergy Unknown Verified 06/18/23 16:46 tuberculin,PPD,multi-puncture Allergy Unknown Verified 06/18/23 16:46 warfarin Allergy Unknown Verified 06/18/23 16:46 water [From Eucerin] Allergy Unknown Verified 06/18/23 16:46 codeine AdvReac Itching Verified 06/18/23 16:46 muscle rub Allergy Unknown Uncoded 06/18/23 16:46 Surgical - Exam Vital Signs Temp Pulse Resp BP Pulse Ox 98.2 F 77 16 177/76 99 06/18/23 10:43 06/18/23 10:43 06/18/23 10:43 06/18/23 10:43 06/18/23 10:43 Results - Labs 06/19/23 06:49 06/19/23 06:49 Abnormal Lab Results - Last 24 Hours (Table) 06/18/23 06/18/23 06/18/23 Range/Units 11:41 11:41 11:41 RBC 2.79 L (3.80-5.40) m/uL Hgb 8.7 L (11.4-16.0) gm/dL Hct 27.9 L (34.0-46.0) % MCV (80.0-100.0) fL Potassium 3.3 L (3.5-5.1) mmol/L Chloride 95 L (98-107) mmol/L Carbon Dioxide 32 H (22-30) mmol/L BUN 23 H (7-17) mg/dL Creatinine 2.26 H (0.52-1.04) mg/dL Glucose 124 H (74-99) mg/dL POC Glucose (mg/dL) (70-110) mg/dL Calcium 8.3 L (8.4-10.2) mg/dL AST 71 H (14-36) U/L ALT 130 H (4-34) U/L Alkaline Phosphatase 447 H (38-126) U/L Total Protein 5.5 L (6.3-8.2) g/dL Albumin 2.9 L (3.5-5.0) g/dL Urine Appearance Cloudy H (Clear) Urine Protein 3+ H (Negative) Urine Glucose (UA) 1+ H (Negative) Urine Blood Trace H (Negative) Ur Leukocyte Esterase Large H (Negative) Urine WBC 113 H (0-5) /hpf Urine WBC Clumps Many H (None) /hpf Urine Bacteria Many H (None) /hpf Urine Mucus Rare H (None) /hpf Urine Yeast (Budding) Few H (None) /hpf 06/18/23 06/19/23 06/19/23 Range/Units 18:42 06:49 06:49 RBC 2.63 L (3.80-5.40) m/uL Hgb 8.3 L (11.4-16.0) gm/dL Hct 26.8 L (34.0-46.0) % MCV 101.8 H (80.0-100.0) fL Potassium (3.5-5.1) mmol/L Chloride 96 L (98-107) mmol/L Carbon Dioxide (22-30) mmol/L BUN 35 H (7-17) mg/dL Creatinine 3.35 H (0.52-1.04) mg/dL Glucose 183 H (74-99) mg/dL POC Glucose (mg/dL) 146 H (70-110) mg/dL Calcium 8.3 L (8.4-10.2) mg/dL AST (14-36) U/L ALT 85 H (4-34) U/L Alkaline Phosphatase 378 H (38-126) U/L Total Protein 5.1 L (6.3-8.2) g/dL Albumin 2.7 L (3.5-5.0) g/dL Urine Appearance (Clear) Urine Protein (Negative) Urine Glucose (UA) (Negative) Urine Blood (Negative) Ur Leukocyte Esterase (Negative) Urine WBC (0-5) /hpf Urine WBC Clumps (None) /hpf Urine Bacteria (None) /hpf Urine Mucus (None) /hpf Urine Yeast (Budding) (None) /hpf 06/19/23 Range/Units 07:19 RBC (3.80-5.40) m/uL Hgb (11.4-16.0) gm/dL Hct (34.0-46.0) % MCV (80.0-100.0) fL Potassium (3.5-5.1) mmol/L Chloride (98-107) mmol/L Carbon Dioxide (22-30) mmol/L BUN (7-17) mg/dL Creatinine (0.52-1.04) mg/dL Glucose (74-99) mg/dL POC Glucose (mg/dL) 197 H (70-110) mg/dL Calcium (8.4-10.2) mg/dL AST (14-36) U/L ALT (4-34) U/L Alkaline Phosphatase (38-126) U/L Total Protein (6.3-8.2) g/dL Albumin (3.5-5.0) g/dL Urine Appearance (Clear) Urine Protein (Negative) Urine Glucose (UA) (Negative) Urine Blood (Negative) Ur Leukocyte Esterase (Negative) Urine WBC (0-5) /hpf Urine WBC Clumps (None) /hpf Urine Bacteria (None) /hpf Urine Mucus (None) /hpf Urine Yeast (Budding) (None) /hpf Diabetes panel 06/18/23 06/19/23 Range/Units 11:41 06:49 Sodium 138 137 (137-145) mmol/L Potassium 3.3 L 3.5 (3.5-5.1) mmol/L Chloride 95 L 96 L (98-107) mmol/L Carbon Dioxide 32 H 28 (22-30) mmol/L BUN 23 H 35 H (7-17) mg/dL Creatinine 2.26 H 3.35 H (0.52-1.04) mg/dL Glucose 124 H 183 H (74-99) mg/dL Calcium 8.3 L 8.3 L (8.4-10.2) mg/dL AST 71 H 34 (14-36) U/L ALT 130 H 85 H (4-34) U/L Alkaline Phosphatase 447 H 378 H (38-126) U/L Total Protein 5.5 L 5.1 L (6.3-8.2) g/dL Albumin 2.9 L 2.7 L (3.5-5.0) g/dL Calcium panel 06/18/23 06/19/23 Range/Units 11:41 06:49 Calcium 8.3 L 8.3 L (8.4-10.2) mg/dL Albumin 2.9 L 2.7 L (3.5-5.0) g/dL Pituitary panel 06/18/23 06/19/23 Range/Units 11:41 06:49 Sodium 138 137 (137-145) mmol/L Potassium 3.3 L 3.5 (3.5-5.1) mmol/L Chloride 95 L 96 L (98-107) mmol/L Carbon Dioxide 32 H 28 (22-30) mmol/L BUN 23 H 35 H (7-17) mg/dL Creatinine 2.26 H 3.35 H (0.52-1.04) mg/dL Glucose 124 H 183 H (74-99) mg/dL Calcium 8.3 L 8.3 L (8.4-10.2) mg/dL Adrenal panel 06/18/23 06/19/23 Range/Units 11:41 06:49 Sodium 138 137 (137-145) mmol/L Potassium 3.3 L 3.5 (3.5-5.1) mmol/L Chloride 95 L 96 L (98-107) mmol/L Carbon Dioxide 32 H 28 (22-30) mmol/L BUN 23 H 35 H (7-17) mg/dL Creatinine 2.26 H 3.35 H (0.52-1.04) mg/dL Glucose 124 H 183 H (74-99) mg/dL Calcium 8.3 L 8.3 L (8.4-10.2) mg/dL Total Bilirubin 1.1 0.9 (0.2-1.3) mg/dL AST 71 H 34 (14-36) U/L ALT 130 H 85 H (4-34) U/L Alkaline Phosphatase 447 H 378 H (38-126) U/L Total Protein 5.5 L 5.1 L (6.3-8.2) g/dL Albumin 2.9 L 2.7 L (3.5-5.0) g/dL
[2023-06-19] MEDS ORDERED: CEFEPIME 2 GM in SODIUM CHLORIDE 0.9% 100 ML IVPB SCH ×2 (12:00→18:00)
[2023-06-19] MEDS ORDERED: LIQUICEL PO SCH (12:00)
[2023-06-19] MEDS: metroNIDAZOLE-NS PMX 500 MG in SALINE 1 100ML.BAG IVPB SCH ×3 (12:04→23:14)
[2023-06-19] MEDS: SEVELAMER 800 MG TAB PO SCH ×2 (12:15→17:39)
[2023-06-19] MEDS: hydrALAZINE HCL 25 MG TAB PO SCH ×2 (12:15→21:03)
[2023-06-19 12:45] LABS: Glucose,Whole Blood 201 mg/dL (70-110)
--- NOTE | 2023-06-19 13:07 | P.NPCON ---
History of Present Illness - Reason for Consult end stage renal disease - History of Present Illness Patient is a 67-year-old female with end-stage renal disease on hemodialysis on a Thursday schedule. Patient is admitted to the hospital from extended care facility due to abnormal liver enzymes. Patient was also noted to be jaundiced. Labs show bilirubin of 0.9. AST 34 and ALT at 85. Alkaline phosphatase was elevated at 447 Ultrasound of the gallbladder shows that it is packed with calculi and bile duct dilated at 8 mm. Patient has been evaluated by general surgery. no complaints of abdominal pain or nausea/vomiting. no history of fever or chills Review of Systems As per HPI Past Medical History Past Medical History: Coronary Artery Disease (CAD), Heart Failure, CVA/TIA, Diabetes Mellitus, Deep Vein Thrombosis (DVT), GERD/Reflux, Hypertension, Pulmonary Embolus (PE), Renal Disease Additional Past Medical History / Comment(s): tremors, hemiplegia -- right-sided weakness from CVA. 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 History of Any Multi-Drug Resistant Organisms: None Reported Date of last positivie culture/infection: 04/18/21 MDRO Source:: MRSA HEEL Past Surgical History: Tonsillectomy Additional Past Surgical History / Comment(s): G-tube, pressure pump right eye; patient has new right chest dialysis port Past Anesthesia/Blood Transfusion Reactions: No Reported Reaction Past Psychological History: Anxiety, Depression Smoking Status: Never smoker Past Alcohol Use History: None Reported Past Drug Use History: None Reported - Past Family History Father History Unknown: Yes Family Medical History: No Reported History, Unable to Obtain Mother History Unknown: Yes Family Medical History: No Reported History, Unable to Obtain Medications and Allergies Home Medications Medication Instructions Recorded Confirmed Type Latanoprost/Pf [Latanoprost 0.005% 1 drop BOTH EYES DAILY@209908/30/18 06/18/23 History Eye Drop] Omeprazole 20 mg PO DIRECTED 08/30/18 06/18/23 History ondansetron HCL [Zofran] 4 mg PO Q4H PRN 08/30/18 06/18/23 History Apixaban [Eliquis] 2.5 mg PO BID@0700,1700 08/06/20 06/18/23 History Melatonin 5 mg PO HS@2100 08/06/20 06/18/23 History bisacodyL [Bisacodyl] 10 mg PO HS PRN 08/06/20 06/18/23 History Liquicel 30 ml PO BID@1200,1700 11/28/20 06/18/23 History carvediloL [Coreg] 3.125 mg PO MOWEFR@1700 11/28/20 06/18/23 History Ergocalciferol [Vitamin D2 (1250 1,250 mcg PO Q14D@1700 04/15/21 06/18/23 History Mcg = 41144 Iu)] levETIRAcetam [Keppra] 250 mg PO DAILY@1700 04/15/21 06/18/23 History Acetaminophen Tab [Tylenol] 650 mg PO Q4H PRN 06/18/23 06/18/23 History Atorvastatin [Lipitor] 10 mg PO DIRECTED 06/18/23 06/18/23 History Dialyvite 800mg 1 tab PO DAILY@1700 06/18/23 06/18/23 History Folic Acid 0.4 mg PO DAILY@0700 06/18/23 06/18/23 History Furosemide [Lasix] 40 mg PO BID@0700,1700 06/18/23 06/18/23 History Insulin Glargine [Lantus Vial] 45 unit SQ DAILY@0700 06/18/23 06/18/23 History Isosorbide Mononitrate ER [Imdur] 30 mg PO DAILY@0700 06/18/23 06/18/23 History Loperamide [Imodium] 2 - 4 mg PO QID PRN 06/18/23 06/18/23 History Sertraline [Zoloft] 50 mg PO DAILY@0700 06/18/23 06/18/23 History Sevelamer [Renvela] 1,600 mg PO AC-TID@07,12,06/18/23 06/18/23 History carvediloL [Coreg] 3.125 mg PO SUTUTHSA@0700,1700 06/18/23 06/18/23 History hydrALAZINE HCL [Apresoline] 25 mg PO MOWEFR@1200,2100 06/18/23 06/18/23 History hydrALAZINE HCL [Apresoline] 25 mg PO SUTUTHSA@0700,2100 06/18/23 06/18/23 History Allergies Allergy/AdvReac Type Severity Reaction Status Date / Time ceresin [From Eucerin] Allergy Unknown Verified 06/18/23 16:46 emollient combination no.33 Allergy Unknown Verified 06/18/23 16:46 [From Eucerin] Iodinated Contrast Media Allergy Rash/Hives Verified 06/18/23 16:46 isopropyl myristate Allergy Unknown Verified 06/18/23 16:46 [From Eucerin] lanolin alcohols Allergy Unknown Verified 06/18/23 16:46 [From Eucerin] mineral oil [From Eucerin] Allergy Unknown Verified 06/18/23 16:46 Penicillins Allergy Rash/Hives Verified 06/18/23 16:46 petrolatum,white Allergy Unknown Verified 06/18/23 16:46 [From Eucerin] soap [From Eucerin] Allergy Unknown Verified 06/18/23 16:46 tuberculin,PPD,multi-puncture Allergy Unknown Verified 06/18/23 16:46 warfarin Allergy Unknown Verified 06/18/23 16:46 water [From Eucerin] Allergy Unknown Verified 06/18/23 16:46 codeine AdvReac Itching Verified 06/18/23 16:46 muscle rub Allergy Unknown Uncoded 06/18/23 16:46 Physical Exam Vitals: Vital Signs Temp Pulse Pulse Resp BP BP Pulse Ox 06/19/23 08:18 16 06/19/23 07:22 98.0 F 71 16 196/71 98 06/19/23 02:00 97.8 F 70 16 135/69 97 06/19/23 00:52 98.9 F 73 17 179/80 98 06/18/23 23:00 77 18 160/68 98 06/18/23 20:40 80 17 147/67 99 06/18/23 18:31 99.3 F 77 16 165/71 100 06/18/23 16:28 99.2 F 75 18 162/67 99 06/18/23 14:11 72 18 158/74 100 Intake and Output 06/18/23 06/19/23 06/19/23 22:59 06:59 14:59 Intake Total 240 Output Total 500 Balance -260 Intake: Oral 240 Output: Urine 500 Other: Voiding Method Incontinent External Catheter Weight 102.058 kg Patient is awake, comfortable, no acute distress Examination of the heart S1 and S2 Examination of the lungs bilateral breath sounds are heard Abdomen is soft nontender, obese Examination of the lower extremities shows no significant edema. Results - Lab Results Most recent lab results Calcium 8.3 mg/dL (8.4-10.2) L 06/19/23 06:49 12 06:49 06/19/23 06:49 Assessment and Plan Assessment: 1. End-stage renal disease on hemodialysis on a Thursday witnessed a Thursday schedule. 2. Elevated alkaline phosphatase with dilated bile duct and gallbladder packed with calculi. Surgery has been consult it. 3. CK D mineral disorder Plan: Hemodialysis today Resume Renvela with meals. Next Thank you for the consultation. We will continue to follow the patient with you during her hospitalization.
[2023-06-19] MEDS: INSULIN ASPART (NovoLOG) 100 UNIT/ML VIAL SQ SCH ×3 (13:22→21:04)
[2023-06-19 17:10] LABS: Glucose,Whole Blood 113 mg/dL (70-110)
[2023-06-19] MEDS: FUROSEMIDE 40 MG TAB PO SCH (17:39)
[2023-06-19] MEDS: carvediloL 3.125 MG TAB PO SCH (17:39)
[2023-06-19] MEDS: FOLIC ACID-VIT B COMPLEX-VIT C 1 CAP PO SCH (17:39)
[2023-06-19] MEDS: levETIRAcetam 250 MG TAB PO SCH (17:39)
--- NOTE | 2023-06-19 18:47 | P.HPIM ---
History of Present Illness H&P Date: 06/19/23 Chief Complaint: Abnormal lab 67-year-old female with past medical history of hypertension, diabetes mellitus, DVT/PE, coronary artery disease, CVA/TIA, end-stage renal disease, presents the emergency department with a chief complaint of abnormal laboratory studies. Patient presents from [facility]. Per EMS patient had abnormal laboratory studies. She does report having a slight nonproductive cough with nausea and vomiting. Patient is alert and oriented 2 which is her baseline. Patient has right sided deficits at Baseline from previous CVA. Patient had abdominal ultrasound completed due to elevated liver enzymes results did show gallbladder is packed with calculi and is mostly obscured by the extensive shadowing. Bile duct dilated at 8 mm. Questionable double ducts within the liver that could reflect intrahepatic biliary ductal dilatation. Correlate for possible biliary obstruction. Sodium 137 potassium 3.5 creatinine 3.35 Total bilirubin 0.9 AST 71 down to 34 ALT 1:30 down to 85 alk phos 447 down to 378 Review of Systems REVIEW OF SYSTEMS: CONSTITUTIONAL: No fever, no malaise, no fatigue. HEENT: No recent visual problems or hearing problems. Denied any sore throat. CARDIOVASCULAR: No chest pain, orthopnea, PND, no palpitations, no syncope. PULMONARY: No shortness of breath, no cough, no hemoptysis. GASTROINTESTINAL: No diarrhea, no nausea, no vomiting, no abdominal pain. NEUROLOGICAL: No headaches, no weakness, no numbness. HEMATOLOGICAL: Denies any bleeding or petechiae. GENITOURINARY: Denies any burning micturition, frequency, or urgency. MUSCULOSKELETAL/RHEUMATOLOGICAL: Denies any joint pain, swelling, or any muscle pain. ENDOCRINE: Denies any polyuria or polydipsia. The rest of the 14-point review of systems is negative. 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 Staff uses [facility] at [facility]. History of Any Multi-Drug Resistant Organisms: None Reported Date of last positivie culture/infection: 04/18/21 MDRO Source:: MRSA HEEL Past Surgical History: Tonsillectomy Additional Past Surgical History / Comment(s): G-tube, pressure pump right eye; patient has new right chest dialysis port Past Anesthesia/Blood Transfusion Reactions: No Reported Reaction Past Psychological History: Anxiety, Depression Smoking Status: Never smoker Past Alcohol Use History: None Reported Past Drug Use History: None Reported - Past Family History Father History Unknown: Yes Family Medical History: No Reported History, Unable to Obtain Mother History Unknown: Yes Family Medical History: No Reported History, Unable to Obtain Medications and Allergies Home Medications Medication Instructions Recorded Confirmed Type Latanoprost/Pf [Latanoprost 0.005% 1 drop BOTH EYES DAILY@2100 08/30/18 06/18/23 History Eye Drop] Omeprazole 20 mg PO DIRECTED 08/30/18 06/18/23 History ondansetron HCL [Zofran] 4 mg PO Q4H PRN 08/30/18 06/18/23 History Apixaban [Eliquis] 2.5 mg PO BID@0700,1700 08/06/20 06/18/23 History Melatonin 5 mg PO HS@2100 08/06/20 06/18/23 History bisacodyL [Bisacodyl] 10 mg PO HS PRN 08/06/20 06/18/23 History Liquicel 30 ml PO BID@1200,1700 11/28/20 06/18/23 History carvediloL [Coreg] 3.125 mg PO MOWEFR@1700 11/28/20 06/18/23 History Ergocalciferol [Vitamin D2 (1250 1,250 mcg PO Q14D@1700 04/15/21 06/18/23 History Mcg = [id number] Iu)] levETIRAcetam [Keppra] 250 mg PO DAILY@1700 04/15/21 06/18/23 History Acetaminophen Tab [Tylenol] 650 mg PO Q4H PRN 06/18/23 06/18/23 History Atorvastatin [Lipitor] 10 mg PO DIRECTED 06/18/23 06/18/23 History Dialyvite 800mg 1 tab PO DAILY@1700 06/18/23 06/18/23 History Folic Acid 0.4 mg PO DAILY@0700 06/18/23 06/18/23 History Furosemide [Lasix] 40 mg PO BID@0700,1700 06/18/23 06/18/23 History Insulin Glargine [Lantus Vial] 45 unit SQ DAILY@0700 06/18/23 06/18/23 History Isosorbide Mononitrate ER [Imdur] 30 mg PO DAILY@0700 06/18/23 06/18/23 History Loperamide [Imodium] 2 - 4 mg PO QID PRN 06/18/23 06/18/23 History Sertraline [Zoloft] 50 mg PO DAILY@0700 06/18/23 06/18/23 History Sevelamer [Renvela] 1,600 mg PO AC-TID@07,12,17 06/18/23 06/18/23 History carvediloL [Coreg] 3.125 mg PO SUTUTHSA@0700,1700 06/18/23 06/18/23 History hydrALAZINE HCL [Apresoline] 25 mg PO MOWEFR@1200,2100 06/18/23 06/18/23 History hydrALAZINE HCL [Apresoline] 25 mg PO SUTUTHSA@0700,2100 06/18/23 06/18/23 History Allergies Allergy/AdvReac Type Severity Reaction Status Date / Time ceresin [From Eucerin] Allergy Unknown Verified 06/18/23 16:46 emollient combination no.33 Allergy Unknown Verified 06/18/23 16:46 [From Eucerin] Iodinated Contrast Media Allergy Rash/Hives Verified 06/18/23 16:46 isopropyl myristate Allergy Unknown Verified 06/18/23 16:46 [From Eucerin] lanolin alcohols Allergy Unknown Verified 06/18/23 16:46 [From Eucerin] mineral oil [From Eucerin] Allergy Unknown Verified 06/18/23 16:46 Penicillins Allergy Rash/Hives Verified 06/18/23 16:46 petrolatum,white Allergy Unknown Verified 06/18/23 16:46 [From Eucerin] soap [From Eucerin] Allergy Unknown Verified 06/18/23 16:46 tuberculin,PPD,multi-puncture Allergy Unknown Verified 06/18/23 16:46 warfarin Allergy Unknown Verified 06/18/23 16:46 water [From Eucerin] Allergy Unknown Verified 06/18/23 16:46 codeine AdvReac Itching Verified 12/21/23 16:46 muscle rub Allergy Unknown Uncoded 06/18/23 16:46 Physical Exam Vitals: Vital Signs Temp Pulse Pulse Resp BP BP Pulse Ox 06/19/23 08:18 16 06/19/23 07:22 98.0 F 71 16 196/71 98 06/19/23 02:00 97.8 F 70 16 135/69 97 06/19/23 00:52 98.9 F 73 17 179/80 98 06/18/23 23:00 77 18 160/68 98 06/18/23 20:40 80 17 147/67 99 06/18/23 18:31 99.3 F 77 16 165/71 100 06/18/23 16:28 99.2 F 75 18 162/67 99 06/18/23 14:11 72 18 158/74 100 Intake and Output 06/18/23 06/19/23 06/19/23 22:59 06:59 14:59 Intake Total 240 Output Total 500 Balance -260 Intake: Oral 240 Output: Urine 500 Other: Voiding Method Incontinent External Catheter Weight 102.058 kg General: Alert, in no acute distress Head: atraumatic normocephalic. Eyes PERRL, EOMI intact, mucous membranes moist Respiratory: Lungs clear to auscultation bilaterally Cardiovascular: Regular rate and rhythm Chest: With this catheter to right upper chest without surrounding erythema or tenderness Abdominal: Soft without guarding or rebound Extremities: Normal inspection with full range of motion and normal capillary refill right sided deficits Neuroogic: alert and oriented 3, CN II-XII intact, able to ambulate with steady gait Skin: warm dry and intact with normal color Results CBC & Chem 7: 06/19/23 06:49 06/19/23 06:49 Labs: Abnormal Lab Results - Last 24 Hours (Table) 06/18/23 06/19/23 06/19/23 Range/Units 18:42 06:49 06:49 RBC 2.63 L (3.80-5.40) m/uL Hgb 8.3 L (11.4-16.0) gm/dL Hct 26.8 L (34.0-46.0) % MCV 101.8 H (80.0-100.0) fL Chloride 96 L (98-107) mmol/L BUN 35 H (7-17) mg/dL Creatinine 3.35 H (0.52-1.04) mg/dL Glucose 183 H (74-99) mg/dL POC Glucose (mg/dL) 146 H (70-110) mg/dL Calcium 8.3 L (8.4-10.2) mg/dL ALT 85 H (4-34) U/L Alkaline Phosphatase 378 H (38-126) U/L Total Protein 5.1 L (6.3-8.2) g/dL Albumin 2.7 L (3.5-5.0) g/dL 06/19/23 06/19/23 Range/Units 07:19 12:44 RBC (3.80-5.40) m/uL Hgb (11.4-16.0) gm/dL Hct (34.0-46.0) % MCV (80.0-100.0) fL Chloride (98-107) mmol/L BUN (7-17) mg/dL Creatinine (0.52-1.04) mg/dL Glucose (74-99) mg/dL POC Glucose (mg/dL) 197 H 201 H (70-110) mg/dL Calcium (8.4-10.2) mg/dL ALT (4-34) U/L Alkaline Phosphatase (38-126) U/L Total Protein (6.3-8.2) g/dL Albumin (3.5-5.0) g/dL Thrombosis Risk Factor Assmnt - Choose All That Apply Any of the Below Risk Factors Present?: Yes Each Factor Represents 1 point: Obesity (BMI >25) Each Risk Factor Represents 2 Points: Age 61-74 years Each Risk Factor Represents 3 Points: History of DVT/PE Thrombosis Risk Factor Assessment Total Risk Factor Score: 6 Thrombosis Risk Factor Assessment Level: High Risk Assessment and Plan Assessment: 1. Cholelithiasis with right upper quadrant pain/cholecystitis - Patient has been placed on IV fluids, IV antibiotics and pain control - Gen. surgery on board and recommending supportive care 2. Possible choledocholithiasis - Blood work reveals elevated liver enzymes; right upper quadrant ultrasound completed reveals mild dilation -- Patient has been placed on IV antibiotics -- General surgery on board and recommending clear liquid diet and IV fluids -- MRCP is ordered for evaluation of possible choledocholithiasis 3. End-stage renal disease/hemodialysis; nephrology consult; patient undergoing hemodialysis 4. Hypertension; Coreg 3.125 mg twice a day; hydralazine 25 mg daily 5. Diabetes mellitus controlled with insulin; Lantus 45 units subcu daily 6. DVT/PE; patient is currently on systemic anticoagulation which is placed on hold till final decision on any surgical needs 7. Hyperlipidemia; Lipitor 10 mg daily at bedtime 8. Seizure disorder; Keppra 250 mg daily DVT prophylaxis; SCDs CODE STATUS; full code
[2023-06-19] MEDS: CEFEPIME 1 GM in SODIUM CHLORIDE 0.9% 50 ML IVPB SCH (18:58)
[2023-06-19 20:05] LABS: Glucose,Whole Blood 214 mg/dL (70-110)
[2023-06-19] MEDS: MELATONIN 5 MG TABLET PO SCH (21:03)
[2023-06-19] MEDS: HEPARIN SODIUM,PORCINE 5,000 UNIT/ML 1 ML VIAL SQ SCH (21:03)
[2023-06-19] MEDS: LATANOPROST 0.005% OPHTH DROPS 2.5 ML BTL BOTH EYES SCH (21:04)
[2023-06-19 23:05] LABS: Glucose,Whole Blood 155 mg/dL (70-110)
[2023-06-20] MEDS: CEFEPIME 1 GM in SODIUM CHLORIDE 0.9% 50 ML IVPB SCH ×2 (05:45→17:28)
[2023-06-20 07:55] LABS: Glucose,Whole Blood 57 mg/dL (70-110)
[2023-06-20] MEDS: SEVELAMER 800 MG TAB PO SCH ×3 (08:03→17:29)
[2023-06-20] MEDS: INSULIN ASPART (NovoLOG) 100 UNIT/ML VIAL SQ SCH ×4 (08:03→20:49)
[2023-06-20] MEDS: FOLIC ACID 1 MG TAB PO SCH (08:03)
[2023-06-20] MEDS: ISOSORBIDE MONONITRATE ER 30 MG TAB.ER.24H PO SCH (08:04)
[2023-06-20] MEDS: HEPARIN SODIUM,PORCINE 5,000 UNIT/ML 1 ML VIAL SQ SCH ×2 (08:04→20:49)
[2023-06-20] MEDS: carvediloL 3.125 MG TAB PO SCH ×2 (08:05→17:29)
[2023-06-20] MEDS: SERTRALINE 50 MG TAB PO SCH (08:05)
[2023-06-20] MEDS: hydrALAZINE HCL 25 MG TAB PO SCH ×2 (08:05→20:49)
[2023-06-20] MEDS: FUROSEMIDE 40 MG TAB PO SCH ×2 (08:05→17:29)
[2023-06-20] MEDS: PANTOPRAZOLE 40 MG/10 ML VIAL IVP SCH ×2 (08:06→20:49)
[2023-06-20 08:22] LABS: Glucose,Whole Blood 117 mg/dL (70-110)
[2023-06-20 09:14] LABS: Basophils # (A) 0.06 X 10*3/uL (0.00-0.10); Basophils % (A) 0.7 %; Eosinophils # (A) 0.33 X 10*3/uL (0.04-0.35); Eosinophils % (A) 3.7 %; HCT 26.1 % (37.2-46.3); HGB 7.8 g/dL (12.0-15.0); Lymphocytes # (A) 2.09 X 10*3/uL (0.90-5.00); Lymphocytes % (A) 23.4 %; MCHC 29.9 g/dL (32.0-37.0); MCV 100.4 FL (80.0-97.0); Mean Platelet Volume 11.7 FL (9.5-12.2); Monocytes # (A) 0.69 X 10*3/uL (0.20-1.00); Monocytes % (A) 7.7 %; NRBC Per 100 WBC 0 X 10*3/uL (0.00-0.01); Neutrophils # (A) 5.65 X 10*3/uL (1.80-7.70); Neutrophils % (A) 63.3 %; Platelet Count 155 X 10*3/uL (140-440); RDW 13.2 % (11.5-14.5); WBC 8.93 X 10*3/uL (4.50-10.00)
[2023-06-20 09:23] LABS: ALT 51 U/L (8-44); AST 14 U/L (13-35); Albumin 2.7 g/dL (3.8-4.9); Albumin/Globulin Ratio 1.35 Ratio (1.60-3.17); Alkaline Phosphatase 306 U/L (41-126); BUN/Creat Ratio 6.79 Ratio (12.00-20.00); Blood Urea Nitrogen 16.3 mg/dL (9.0-27.0); Calcium 8.3 mg/dL (8.7-10.3); Carbon Dioxide 28.7 mmol/L (21.6-31.8); Chloride 98 mmol/L (96-109); Glucose 58 mg/dL (70-110); Potassium 3.3 mmol/L (3.5-5.5); Sodium 136 mmol/L (135-145); Total Bilirubin 0.5 mg/dL (0.3-1.2); Total Protein 4.7 g/dL (6.2-8.2)
[2023-06-20] MEDS: INSULIN DETEMIR (LEVEMIR) 100 UNIT/ML SYR SQ SCH (10:16)
[2023-06-20] MEDS: metroNIDAZOLE-NS PMX 500 MG in SALINE 1 100ML.BAG IVPB SCH ×3 (10:16→23:19)
[2023-06-20] MEDS: ATORVASTATIN 10 MG TAB PO SCH (10:17)
--- NOTE | 2023-06-20 11:37 | P.PN ---
Subjective patient is seen for follow-up for end-stage renal disease. She is maintained on Thursday schedule. No significant complaints today. Patient is resting comfortably. Objective - Vital Signs Vital signs: Vital Signs Temp 98.2 F 06/20/23 07:57 Pulse 61 06/20/23 07:57 Resp 15 06/20/23 07:57 BP 117/50 06/20/23 07:57 Pulse Ox 99 06/20/23 09:59 FiO2 Intake & Output 06/19/23 06/20/23 06/20/23 18:59 06:59 18:59 Intake Total 400 0 Output Total 1600 50 Balance -1200 -50 Weight 96.5 kg Intake: Oral 0 Hemodialysis 400 Output: Urine 200 50 Hemodialysis 1400 Other: Voiding Method Incontinent Incontinent Incontinent External Catheter External Catheter External Catheter - Exam Patient is sleeping, comfortable, no acute distress Examination of the heart S1 and S2 Examination of the lungs bilateral breath sounds are heard Abdomen is soft nontender, obese Examination of the lower extremities shows no significant edema. - Labs CBC & Chem 7: 06/20/23 06:15 06/20/23 06:15 Labs: Abnormal Lab Results - Last 24 Hours (Table) 06/19/23 06/19/23 06/19/23 Range/Units 12:44 17:09 19:55 RBC (4.10-5.20) X 10*6/uL Hgb (12.0-15.0) g/dL Hct (37.2-46.3) % MCV (80.0-97.0) FL MCHC (32.0-37.0) g/dL Immature Gran # (0.00-0.04) X 10*3/uL Potassium (3.5-5.5) mmol/L Creatinine (0.6-1.5) mg/dL Est GFR (CKD-EPI) (>=60) BUN/Creatinine Ratio (12.00-20.00) Ratio Glucose (70-110) mg/dL POC Glucose (mg/dL) 201 H 113 H 214 H (70-110) mg/dL Hemoglobin A1c (<=6.0) % Calcium (8.7-10.3) mg/dL ALT (8-44) U/L Alkaline Phosphatase (41-126) U/L Total Protein (6.2-8.2) g/dL Albumin (3.8-4.9) g/dL Albumin/Globulin Ratio (1.60-3.17) Ratio Procalcitonin (0.02-0.09) ng/mL 06/19/23 06/20/23 06/20/23 Range/Units 23:04 06:15 06:15 RBC (4.10-5.20) X 10*6/uL Hgb (12.0-15.0) g/dL Hct (37.2-46.3) % MCV (80.0-97.0) FL MCHC (32.0-37.0) g/dL Immature Gran # (0.00-0.04) X 10*3/uL Potassium (3.5-5.5) mmol/L Creatinine (0.6-1.5) mg/dL Est GFR (CKD-EPI) (>=60) BUN/Creatinine Ratio (12.00-20.00) Ratio Glucose (70-110) mg/dL POC Glucose (mg/dL) 155 H (70-110) mg/dL Hemoglobin A1c 6.7 H (<=6.0) % Calcium (8.7-10.3) mg/dL ALT (8-44) U/L Alkaline Phosphatase (41-126) U/L Total Protein (6.2-8.2) g/dL Albumin (3.8-4.9) g/dL Albumin/Globulin Ratio (1.60-3.17) Ratio Procalcitonin 4.88 H (0.02-0.09) ng/mL 06/20/23 06/20/23 06/20/23 Range/Units 06:15 06:15 07:54 RBC 2.60 L (4.10-5.20) X 10*6/uL Hgb 7.8 L (12.0-15.0) g/dL Hct 26.1 L (37.2-46.3) % MCV 100.4 H (80.0-97.0) FL MCHC 29.9 L (32.0-37.0) g/dL Immature Gran # 0.11 H (0.00-0.04) X 10*3/uL Potassium 3.3 L (3.5-5.5) mmol/L Creatinine 2.4 H (0.6-1.5) mg/dL Est GFR (CKD-EPI) 22 L (>=60) BUN/Creatinine Ratio 6.79 L (12.00-20.00) Ratio Glucose 58 L (70-110) mg/dL POC Glucose (mg/dL) 57 L (70-110) mg/dL Hemoglobin A1c (<=6.0) % Calcium 8.3 L (8.7-10.3) mg/dL ALT 51 H (8-44) U/L Alkaline Phosphatase 306 H (41-126) U/L Total Protein 4.7 L (6.2-8.2) g/dL Albumin 2.7 L (3.8-4.9) g/dL Albumin/Globulin Ratio 1.35 L (1.60-3.17) Ratio Procalcitonin (0.02-0.09) ng/mL 06/20/23 Range/Units 08:21 RBC (4.10-5.20) X 10*6/uL Hgb (12.0-15.0) g/dL Hct (37.2-46.3) % MCV (80.0-97.0) FL MCHC (32.0-37.0) g/dL Immature Gran # (0.00-0.04) X 10*3/uL Potassium (3.5-5.5) mmol/L Creatinine (0.6-1.5) mg/dL Est GFR (CKD-EPI) (>=60) BUN/Creatinine Ratio (12.00-20.00) Ratio Glucose (70-110) mg/dL POC Glucose (mg/dL) 117 H (70-110) mg/dL Hemoglobin A1c (<=6.0) % Calcium (8.7-10.3) mg/dL ALT (8-44) U/L Alkaline Phosphatase (41-126) U/L Total Protein (6.2-8.2) g/dL Albumin (3.8-4.9) g/dL Albumin/Globulin Ratio (1.60-3.17) Ratio Procalcitonin (0.02-0.09) ng/mL Microbiology - Last 24 Hours (Table) 06/18/23 11:41 Urine Culture - Preliminary Urine,Voided Gram Neg Bacilli Assessment and Plan Assessment: 1. End-stage renal disease on hemodialysis on a Thursday schedule. 2. Elevated alkaline phosphatase with dilated bile duct and gallbladder packed with calculi. Surgery has been consulted. 3. CK D mineral disorder Plan: Hemodialysis in am Resume Renvela with meals when eating.
[2023-06-20] MEDS ORDERED: POTASSIUM CHLORIDE ER 20 MEQ TAB.ER PO STA (11:38)
--- NOTE | 2023-06-20 11:55 | P.PN ---
Subjective Progress Note Date: 06/20/23 Objective - Vital Signs Vital signs: Vital Signs Temp 98.2 F 06/20/23 07:57 Pulse 61 06/20/23 07:57 Resp 15 06/20/23 07:57 BP 117/50 06/20/23 07:57 Pulse Ox 99 06/20/23 09:59 FiO2 Intake & Output 06/19/23 06/20/23 06/20/23 18:59 06:59 18:59 Intake Total 400 0 Output Total 1600 50 Balance -1200 -50 Weight 96.5 kg Intake: Oral 0 Hemodialysis 400 Output: Urine 200 50 Hemodialysis 1400 Other: Voiding Method Incontinent Incontinent Incontinent External Catheter External Catheter External Catheter - EENT Eyes: Present: anicteric sclerae ENT: Present: normal oropharynx ([facility] COMPLAINT: Abnormal labs) - Labs CBC & Chem 7: 06/20/23 06:15 06/20/23 06:15 Labs: Abnormal Lab Results - Last 24 Hours (Table) 06/19/23 06/19/23 06/19/23 Range/Units 12:44 17:09 19:55 RBC (4.10-5.20) X 10*6/uL Hgb (12.0-15.0) g/dL Hct (37.2-46.3) % MCV (80.0-97.0) FL MCHC (32.0-37.0) g/dL Immature Gran # (0.00-0.04) X 10*3/uL Potassium (3.5-5.5) mmol/L Creatinine (0.6-1.5) mg/dL Est GFR (CKD-EPI) (>=60) BUN/Creatinine Ratio (12.00-20.00) Ratio Glucose (70-110) mg/dL POC Glucose (mg/dL) 201 H 113 H 214 H (70-110) mg/dL Hemoglobin A1c (<=6.0) % Calcium (8.7-10.3) mg/dL ALT (8-44) U/L Alkaline Phosphatase (41-126) U/L Total Protein (6.2-8.2) g/dL Albumin (3.8-4.9) g/dL Albumin/Globulin Ratio (1.60-3.17) Ratio Procalcitonin (0.02-0.09) ng/mL 06/19/23 06/20/23 06/20/23 Range/Units 23:04 06:15 06:15 RBC (4.10-5.20) X 10*6/uL Hgb (12.0-15.0) g/dL Hct (37.2-46.3) % MCV (80.0-97.0) FL MCHC (32.0-37.0) g/dL Immature Gran # (0.00-0.04) X 10*3/uL Potassium (3.5-5.5) mmol/L Creatinine (0.6-1.5) mg/dL Est GFR (CKD-EPI) (>=60) BUN/Creatinine Ratio (12.00-20.00) Ratio Glucose (70-110) mg/dL POC Glucose (mg/dL) 155 H (70-110) mg/dL Hemoglobin A1c 6.7 H (<=6.0) % Calcium (8.7-10.3) mg/dL ALT (8-44) U/L Alkaline Phosphatase (41-126) U/L Total Protein (6.2-8.2) g/dL Albumin (3.8-4.9) g/dL Albumin/Globulin Ratio (1.60-3.17) Ratio Procalcitonin 4.88 H (0.02-0.09) ng/mL 06/20/23 06/20/23 06/20/23 Range/Units 06:15 06:15 07:54 RBC 2.60 L (4.10-5.20) X 10*6/uL Hgb 7.8 L (12.0-15.0) g/dL Hct 26.1 L (37.2-46.3) % MCV 100.4 H (80.0-97.0) FL MCHC 29.9 L (32.0-37.0) g/dL Immature Gran # 0.11 H (0.00-0.04) X 10*3/uL Potassium 3.3 L (3.5-5.5) mmol/L Creatinine 2.4 H (0.6-1.5) mg/dL Est GFR (CKD-EPI) 22 L (>=60) BUN/Creatinine Ratio 6.79 L (12.00-20.00) Ratio Glucose 58 L (70-110) mg/dL POC Glucose (mg/dL) 57 L (70-110) mg/dL Hemoglobin A1c (<=6.0) % Calcium 8.3 L (8.7-10.3) mg/dL ALT 51 H (8-44) U/L Alkaline Phosphatase 306 H (41-126) U/L Total Protein 4.7 L (6.2-8.2) g/dL Albumin 2.7 L (3.8-4.9) g/dL Albumin/Globulin Ratio 1.35 L (1.60-3.17) Ratio Procalcitonin (0.02-0.09) ng/mL 06/20/23 Range/Units 08:21 RBC (4.10-5.20) X 10*6/uL Hgb (12.0-15.0) g/dL Hct (37.2-46.3) % MCV (80.0-97.0) FL MCHC (32.0-37.0) g/dL Immature Gran # (0.00-0.04) X 10*3/uL Potassium (3.5-5.5) mmol/L Creatinine (0.6-1.5) mg/dL Est GFR (CKD-EPI) (>=60) BUN/Creatinine Ratio (12.00-20.00) Ratio Glucose (70-110) mg/dL POC Glucose (mg/dL) 117 H (70-110) mg/dL Hemoglobin A1c (<=6.0) % Calcium (8.7-10.3) mg/dL ALT (8-44) U/L Alkaline Phosphatase (41-126) U/L Total Protein (6.2-8.2) g/dL Albumin (3.8-4.9) g/dL Albumin/Globulin Ratio (1.60-3.17) Ratio Procalcitonin (0.02-0.09) ng/mL Microbiology - Last 24 Hours (Table) 06/18/23 11:41 Urine Culture - Preliminary Urine,Voided Gram Neg Bacilli Assessment and Plan Assessment: 1 cholecystitis, cholelithiasis possible choledocholithiasis. MRCP pending Plan: MRCP pending.
[2023-06-20 13:01] LABS: Glucose,Whole Blood 84 mg/dL (70-110)
--- NOTE | 2023-06-20 16:09 | P.PN ---
Subjective Progress Note Date: 06/20/23 67-year-old female with past medical history of hypertension, diabetes mellitus, DVT/PE, coronary artery disease, CVA/TIA, end-stage renal disease, presents the emergency department with a chief complaint of abnormal laboratory studies. Patient presents from [facility]. Per EMS patient had abnormal laboratory studies. She does report having a slight nonproductive cough with nausea and vomiting. Patient is alert and oriented 2 which is her baseline. Patient has right sided deficits at Baseline from previous CVA. Patient had abdominal ultrasound completed due to elevated liver enzymes results did show gallbladder is packed with calculi and is mostly obscured by the extensive shadowing. Bile duct dilated at 8 mm. Questionable double ducts within the liver that could reflect intrahepatic biliary ductal dilatation. Correlate for possible biliary obstruction. Sodium 137 potassium 3.5 creatinine 3.35 Total bilirubin 0.9 AST 71 down to 34 ALT 1:30 down to 85 alk phos 447 down to 378 Objective - Vital Signs Vital signs: Vital Signs Temp 98.2 F 06/20/23 07:57 Pulse 61 06/20/23 07:57 Resp 15 06/20/23 07:57 BP 117/50 06/20/23 07:57 Pulse Ox 99 06/20/23 09:59 FiO2 Intake & Output 06/19/23 06/20/23 06/20/23 18:59 06:59 18:59 Intake Total 400 0 Output Total 1600 50 Balance -1200 -50 Weight 96.5 kg Intake: Oral 0 Hemodialysis 400 Output: Urine 200 50 Hemodialysis 1400 Other: Voiding Method Incontinent Incontinent Incontinent External Catheter External Catheter External Catheter - Exam General: Alert, in no acute distress Head: atraumatic normocephalic. Eyes PERRL, EOMI intact, mucous membranes moist Respiratory: Lungs clear to auscultation bilaterally Cardiovascular: Regular rate and rhythm Chest: With this catheter to right upper chest without surrounding erythema or tenderness Abdominal: Soft without guarding or rebound Extremities: Normal inspection with full range of motion and normal capillary refill right sided deficits Neuroogic: alert and oriented 3, CN II-XII intact, able to ambulate with steady gait Skin: warm dry and intact with normal color - Labs CBC & Chem 7: 06/20/23 06:15 06/20/23 06:15 Labs: Abnormal Lab Results - Last 24 Hours (Table) 06/19/23 06/19/23 06/19/23 Range/Units 12:44 17:09 19:55 RBC (4.10-5.20) X 10*6/uL Hgb (12.0-15.0) g/dL Hct (37.2-46.3) % MCV (80.0-97.0) FL MCHC (32.0-37.0) g/dL Immature Gran # (0.00-0.04) X 10*3/uL Potassium (3.5-5.5) mmol/L Creatinine (0.6-1.5) mg/dL Est GFR (CKD-EPI) (>=60) BUN/Creatinine Ratio (12.00-20.00) Ratio Glucose (70-110) mg/dL POC Glucose (mg/dL) 201 H 113 H 214 H (70-110) mg/dL Hemoglobin A1c (<=6.0) % Calcium (8.7-10.3) mg/dL ALT (8-44) U/L Alkaline Phosphatase (41-126) U/L Total Protein (6.2-8.2) g/dL Albumin (3.8-4.9) g/dL Albumin/Globulin Ratio (1.60-3.17) Ratio Procalcitonin (0.02-0.09) ng/mL 06/19/23 06/20/23 06/20/23 Range/Units 23:04 06:15 06:15 RBC (4.10-5.20) X 10*6/uL Hgb (12.0-15.0) g/dL Hct (37.2-46.3) % MCV (80.0-97.0) FL MCHC (32.0-37.0) g/dL Immature Gran # (0.00-0.04) X 10*3/uL Potassium (3.5-5.5) mmol/L Creatinine (0.6-1.5) mg/dL Est GFR (CKD-EPI) (>=60) BUN/Creatinine Ratio (12.00-20.00) Ratio Glucose (70-110) mg/dL POC Glucose (mg/dL) 155 H (70-110) mg/dL Hemoglobin A1c 6.7 H (<=6.0) % Calcium (8.7-10.3) mg/dL ALT (8-44) U/L Alkaline Phosphatase (41-126) U/L Total Protein (6.2-8.2) g/dL Albumin (3.8-4.9) g/dL Albumin/Globulin Ratio (1.60-3.17) Ratio Procalcitonin 4.88 H (0.02-0.09) ng/mL 06/20/23 06/20/23 06/20/23 Range/Units 06:15 06:15 07:54 RBC 2.60 L (4.10-5.20) X 10*6/uL Hgb 7.8 L (12.0-15.0) g/dL Hct 26.1 L (37.2-46.3) % MCV 100.4 H (80.0-97.0) FL MCHC 29.9 L (32.0-37.0) g/dL Immature Gran # 0.11 H (0.00-0.04) X 10*3/uL Potassium 3.3 L (3.5-5.5) mmol/L Creatinine 2.4 H (0.6-1.5) mg/dL Est GFR (CKD-EPI) 22 L (>=60) BUN/Creatinine Ratio 6.79 L (12.00-20.00) Ratio Glucose 58 L (70-110) mg/dL POC Glucose (mg/dL) 57 L (70-110) mg/dL Hemoglobin A1c (<=6.0) % Calcium 8.3 L (8.7-10.3) mg/dL ALT 51 H (8-44) U/L Alkaline Phosphatase 306 H (41-126) U/L Total Protein 4.7 L (6.2-8.2) g/dL Albumin 2.7 L (3.8-4.9) g/dL Albumin/Globulin Ratio 1.35 L (1.60-3.17) Ratio Procalcitonin (0.02-0.09) ng/mL 06/20/23 Range/Units 08:21 RBC (4.10-5.20) X 10*6/uL Hgb (12.0-15.0) g/dL Hct (37.2-46.3) % MCV (80.0-97.0) FL MCHC (32.0-37.0) g/dL Immature Gran # (0.00-0.04) X 10*3/uL Potassium (3.5-5.5) mmol/L Creatinine (0.6-1.5) mg/dL Est GFR (CKD-EPI) (>=60) BUN/Creatinine Ratio (12.00-20.00) Ratio Glucose (70-110) mg/dL POC Glucose (mg/dL) 117 H (70-110) mg/dL Hemoglobin A1c (<=6.0) % Calcium (8.7-10.3) mg/dL ALT (8-44) U/L Alkaline Phosphatase (41-126) U/L Total Protein (6.2-8.2) g/dL Albumin (3.8-4.9) g/dL Albumin/Globulin Ratio (1.60-3.17) Ratio Procalcitonin (0.02-0.09) ng/mL Microbiology - Last 24 Hours (Table) 06/18/23 11:41 Urine Culture - Preliminary Urine,Voided Gram Neg Bacilli Assessment and Plan Assessment: 1. Cholelithiasis with right upper quadrant pain/cholecystitis - Patient has been placed on IV fluids, IV antibiotics and pain control - Gen. surgery on board and recommending supportive care 2. Possible choledocholithiasis - Blood work reveals elevated liver enzymes; right upper quadrant ultrasound completed reveals mild dilation -- Patient has been placed on IV antibiotics -- General surgery on board and recommending clear liquid diet and IV fluids -- MRCP is ordered for evaluation of possible choledocholithiasis 3. End-stage renal disease/hemodialysis; nephrology consult; patient undergoing hemodialysis 4. Hypertension; Coreg 3.125 mg twice a day; hydralazine 25 mg daily 5. Diabetes mellitus controlled with insulin; Lantus 45 units subcu daily 6. DVT/PE; patient is currently on systemic anticoagulation which is placed on hold till final decision on any surgical needs 7. Hyperlipidemia; Lipitor 10 mg daily at bedtime 8. Seizure disorder; Keppra 250 mg daily DVT prophylaxis; SCDs CODE STATUS; full code
[2023-06-20 17:10] LABS: Glucose,Whole Blood 90 mg/dL (70-110)
[2023-06-20] MEDS: FOLIC ACID-VIT B COMPLEX-VIT C 1 CAP PO SCH (17:29)
[2023-06-20] MEDS: levETIRAcetam 250 MG TAB PO SCH (17:29)
--- NOTE | 2023-06-20 17:34 | MR ---
EXAMINATION TYPE: MRI abdomen without contrast MR MRCP DATE OF EXAM: 06/20/2023 COMPARISON: Ultrasound 06/18/2023 HISTORY: 67-year-old female were right upper quadrant pain, dilated CBD TECHNIQUE: Multiplanar, multisequence images of the abdomen were acquired without contrast. Additiona l highly T2 weighted images of the pancreatic or biliary tree for MRCP. 3-D reconstructions generated on a dedicated workstation. FINDINGS: The heart is borderline enlarged without pericardial effusion. Unable to exclude some abnormal opacit y or pleural effusion at the left base. Liver normal size. On opposed phase T1-weighted sequences, show no significant fatty infiltration. There is mild intrahepatic biliary ductal dilatation. Uniform mild dilatation of the bile duct up to 9 mm. The entire proper and common bile duct are packed with numerous small stones measuring up to 1 cm and spanning 8 cm down to the distal duct and up to the level of the right and left hepatic ducts. While there is no gallbladder hydrops, the gallbladder is also packed with stones as seen on ultraso und. No abnormal gallbladder wall thickening or surrounding fluid is seen. No hydronephrosis on either side. There scattered small renal cortical cysts measuring up to 1 cm. Prominent patient motion limits the evaluation. There are nonspecific bilateral adrenal nodularity me asuring up to 1.7 cm on the left and 1.5 cm on the right. The degree of motion limits adequate assess ment on out of phase T1-weighted sequence. Limited assessment of the pancreas due to the motion and lack of contrast. Spleen shows no gross abno rmality. Extensive lipomatosis of the pararenal spaces. No significant bowel abnormality or obvious upper abdo marie lymphadenopathy is seen. IMPRESSION: 1. The gallbladder is packed with numerous small stones as seen on ultrasound. 2. However, impressively, both the common hepatic duct and common bile duct are also packed with ston es, with stones measuring up to 1 cm in size and spanning nearly 8 cm along the course of the entire bile duct. Mild intrahepatic and extrahepatic biliary ductal dilatation with the bile duct dilated to 9 mm. 3. Indeterminate bilateral adrenal nodularity measuring up to 1.7 cm. Recommend 6 month follow-up adr enal mass protocol CT. A benign etiology is favored. 4. Pronounced lipomatosis in the pararenal spaces. 5. Possible small left effusion versus abnormal opacity/airspace disease at the left base.
[2023-06-20 19:49] LABS: Glucose,Whole Blood 146 mg/dL (70-110)
[2023-06-20] MEDS: MELATONIN 5 MG TABLET PO SCH (20:48)
[2023-06-20] MEDS: LATANOPROST 0.005% OPHTH DROPS 2.5 ML BTL BOTH EYES SCH (20:50)
[2023-06-21] MEDS: ISOSORBIDE MONONITRATE ER 30 MG TAB.ER.24H PO SCH (06:09)
[2023-06-21] MEDS: SEVELAMER 800 MG TAB PO SCH ×3 (06:09→17:15)
[2023-06-21] MEDS: carvediloL 3.125 MG TAB PO SCH ×3 (06:09→17:16)
[2023-06-21] MEDS: hydrALAZINE HCL 25 MG TAB PO SCH ×2 (06:09→20:56)
[2023-06-21] MEDS: FOLIC ACID 1 MG TAB PO SCH (06:09)
[2023-06-21] MEDS: FUROSEMIDE 40 MG TAB PO SCH ×2 (06:09→17:15)
[2023-06-21] MEDS: CEFEPIME 1 GM in SODIUM CHLORIDE 0.9% 50 ML IVPB SCH ×2 (06:09→18:28)
[2023-06-21] MEDS: SERTRALINE 50 MG TAB PO SCH (06:09)
[2023-06-21 07:50] LABS: Glucose,Whole Blood 156 mg/dL (70-110)
[2023-06-21] MEDS: HEPARIN SODIUM,PORCINE 5,000 UNIT/ML 1 ML VIAL SQ SCH ×2 (09:13→20:56)
[2023-06-21] MEDS: INSULIN ASPART (NovoLOG) 100 UNIT/ML VIAL SQ SCH ×4 (09:13→20:57)
[2023-06-21] MEDS: PANTOPRAZOLE 40 MG/10 ML VIAL IVP SCH ×2 (09:13→20:56)
[2023-06-21] MEDS: INSULIN DETEMIR (LEVEMIR) 100 UNIT/ML SYR SQ SCH (09:13)
[2023-06-21 10:35] LABS: BUN/Creat Ratio 6.24 Ratio (12.00-20.00); Blood Urea Nitrogen 20.6 mg/dL (9.0-27.0); Chloride 100 mmol/L (96-109); Glucose 137 mg/dL (70-110); Potassium 4.5 mmol/L (3.5-5.5); Sodium 138 mmol/L (135-145)
[2023-06-21 10:36] LABS: Calcium 8.6 mg/dL (8.7-10.3); Carbon Dioxide 26.7 mmol/L (21.6-31.8)
[2023-06-21 11:36] LABS: Glucose,Whole Blood 109 mg/dL (70-110)
--- NOTE | 2023-06-21 11:49 | P.PN ---
Subjective patient is seen for follow-up for end-stage renal disease. She is maintained on Thursday schedule. No significant complaints today. Patient is resting comfortably. Seen on hemodialysis. Tolerating treatment well. Objective - Vital Signs Vital signs: Vital Signs Temp 97.5 F L 06/21/23 07:25 Pulse 76 06/21/23 07:25 Resp 18 06/21/23 07:25 BP 134/78 06/21/23 07:25 Pulse Ox 100 06/21/23 08:36 FiO2 Intake & Output 06/20/23 06/21/23 06/21/23 18:59 06:59 18:59 Intake Total 610 Output Total 150 300 Balance 460 -300 Weight 95.5 kg Intake: Intake, IV Titration 250 Amount Cefepime 1 gm In Sodium 50 Chloride 0.9% 50 ml @ 12. 5 mls/hr IVPB Q12H [facility] Rx #:[id number] metroNIDAZOLE-NS PMX 500 200 mg In Saline 1 100ml.bag @ 100 mls/hr IVPB Q8HR [facility] Rx#:[id number] Oral 360 Output: Urine 150 300 Other: Voiding Method Incontinent Incontinent Incontinent External Catheter External Catheter External Catheter # Bowel Movements 1 - Exam Patient is sleeping, comfortable, no acute distress Examination of the heart S1 and S2 Examination of the lungs bilateral breath sounds are heard Abdomen is soft nontender, obese Examination of the lower extremities shows no significant edema. - Labs CBC & Chem 7: 06/20/23 06:15 06/21/23 05:53 Labs: Abnormal Lab Results - Last 24 Hours (Table) 06/20/23 06/21/23 06/21/23 Range/Units 19:47 05:53 07:29 Creatinine 3.3 H (0.6-1.5) mg/dL Est GFR (CKD-EPI) 15 L (>=60) BUN/Creatinine Ratio 6.24 L (12.00-20.00) Ratio Glucose 137 H (70-110) mg/dL POC Glucose (mg/dL) 146 H 156 H (70-110) mg/dL Calcium 8.6 L (8.7-10.3) mg/dL Microbiology - Last 24 Hours (Table) 06/18/23 11:41 Urine Culture - Final Urine,Voided Escherichia coli Assessment and Plan Assessment: 1. End-stage renal disease on hemodialysis on a Thursday aníbal almendarez. 2. Elevated alkaline phosphatase with dilated bile duct and gallbladder packed with calculi. Surgery has been consulted. 3. CK D mineral disorder Plan: Hemodialysis today Resume Renvela with meals when eating.
[2023-06-21] MEDS: metroNIDAZOLE-NS PMX 500 MG in SALINE 1 100ML.BAG IVPB SCH ×3 (11:58→23:33)
[2023-06-21] MEDS: ATORVASTATIN 10 MG TAB PO SCH (11:58)
--- NOTE | 2023-06-21 13:17 | P.PN ---
Subjective Progress Note Date: 06/21/23 CHIEF COMPLAINT: Elevated liver enzymes HISTORY OF PRESENT ILLNESS: The patient is a 67-year-old female admitted with transaminitis. She is tolerating liquid diet. No reports of abdominal pain. ROS: No reports of nausea and vomiting. No fevers or chills. No new chest pain. No productive sputum PHYSICAL EXAM: VITAL SIGNS: Reviewed CONSTITUTIONAL: Well developed and in no acute distress. EYES: Conjuctivae without sclera icterus. Extraocular movements grossly intact. HEAD, EARS, NOSE, THROAT: Moist buccal mucosa. Head is atraumatic, normocephalic. Hears conversational speech. No nasal drainage. RESPIRATORY: Non-labored respirations and equal bilateral excursions. CARDIOVASCULAR: Palpable 2+ radial pulses. ABDOMEN: Obese, nontender. MUSCULOSKELETAL: No gross deformity of the lower extremities noted. No clubbing. No cyanosis. SKIN: Good skin turgor. Well perfused. NEUROLOGIC: Cranial nerves II through XII grossly intact. No focal or lateralizing signs. PSYCH: Flat affect. CLINICAL LABS: Reviewed. WBC normal. LFTs elevated. STUDIES: MRCP obtained for choledocholithiasis. Findings consistent with severe choledocholithiasis involving common bile duct and hepatic duct. ASSESSMENT: 1. Transaminitis 2. Choledocholithiasis PLAN: 1. Transfer to outside facility for urgent ERCP as GI not available at this institution at this time. Objective - Vital Signs Vital signs: Vital Signs Temp 97.4 F L 06/21/23 11:12 Pulse 67 06/21/23 11:12 Resp 16 06/21/23 11:12 BP 141/68 06/21/23 11:12 Pulse Ox 100 06/21/23 11:12 FiO2 Intake & Output 06/20/23 06/21/23 06/21/23 18:59 06:59 18:59 Intake Total 610 Output Total 150 300 Balance 460 -300 Weight 95.5 kg Intake: Intake, IV Titration 250 Amount Cefepime 1 gm In Sodium 50 Chloride 0.9% 50 ml @ 12. 5 mls/hr IVPB Q12H [facility] Rx #:[id number] metroNIDAZOLE-NS PMX 500 200 mg In Saline 1 100ml.bag @ 100 mls/hr IVPB Q8HR [facility] Rx#:[id number] Oral 360 Output: Urine 150 300 Other: Voiding Method Incontinent Incontinent Incontinent External Catheter External Catheter External Catheter # Bowel Movements 1 - Labs CBC & Chem 7: 06/20/23 06:15 06/21/23 05:53 Labs: Abnormal Lab Results - Last 24 Hours (Table) 06/20/23 06/21/23 06/21/23 Range/Units 19:47 05:53 07:29 Creatinine 3.3 H (0.6-1.5) mg/dL Est GFR (CKD-EPI) 15 L (>=60) BUN/Creatinine Ratio 6.24 L (12.00-20.00) Ratio Glucose 137 H (70-110) mg/dL POC Glucose (mg/dL) 146 H 156 H (70-110) mg/dL Calcium 8.6 L (8.7-10.3) mg/dL Microbiology - Last 24 Hours (Table) 06/18/23 11:41 Urine Culture - Final Urine,Voided Escherichia coli
[2023-06-21] MEDS: levETIRAcetam 250 MG TAB PO SCH (17:15)
[2023-06-21] MEDS: FOLIC ACID-VIT B COMPLEX-VIT C 1 CAP PO SCH (17:15)
--- NOTE | 2023-06-21 17:45 | P.PN ---
Subjective Progress Note Date: 06/21/23 67-year-old female with past medical history of hypertension, diabetes mellitus, DVT/PE, coronary artery disease, CVA/TIA, end-stage renal disease, presents the emergency department with a chief complaint of abnormal laboratory studies. Patient presents from [facility]. Per EMS patient had abnormal laboratory studies. She does report having a slight nonproductive cough with nausea and vomiting. Patient is alert and oriented 2 which is her baseline. Patient has right sided deficits at Baseline from previous CVA. Patient had abdominal ultrasound completed due to elevated liver enzymes results did show gallbladder is packed with calculi and is mostly obscured by the extensive shadowing. Bile duct dilated at 8 mm. Questionable double ducts within the liver that could reflect intrahepatic biliary ductal dilatation. Correlate for possible biliary obstruction. Sodium 137 potassium 3.5 creatinine 3.35 Total bilirubin 0.9 AST 71 down to 34 ALT 1:30 down to 85 alk phos 447 down to 378 24 hour interval change 06/21/2023 Patient is seen and evaluated with and discussed with nursing staff; surgery recommendations noted and appreciated MRCP reveals choledocholithiasis embarking: Bilateral impacted -- GI recommending patient to be transferred to outside facility for urgent ERCP --Called patient's guardian Shaista for update on transfer; message left Objective - Vital Signs Vital signs: Vital Signs Temp 97.4 F L 06/21/23 11:12 Pulse 67 06/21/23 11:12 Resp 16 06/21/23 11:12 BP 141/68 06/21/23 11:12 Pulse Ox 100 06/21/23 11:12 FiO2 Intake & Output 06/20/23 06/21/23 06/21/23 18:59 06:59 18:59 Intake Total 610 Output Total 150 300 Balance 460 -300 Weight 95.5 kg Intake: Intake, IV Titration 250 Amount Cefepime 1 gm In Sodium 50 Chloride 0.9% 50 ml @ 12. 5 mls/hr IVPB Q12H [facility] Rx #:[id number] metroNIDAZOLE-NS PMX 500 200 mg In Saline 1 100ml.bag @ 100 mls/hr IVPB Q8HR [facility] Rx#:[id number] Oral 360 Output: Urine 150 300 Other: Voiding Method Incontinent Incontinent Incontinent External Catheter External Catheter External Catheter # Bowel Movements 1 - Exam General: Alert, in no acute distress Head: atraumatic normocephalic. Eyes PERRL, EOMI intact, mucous membranes moist Respiratory: Lungs clear to auscultation bilaterally Cardiovascular: Regular rate and rhythm Chest: With this catheter to right upper chest without surrounding erythema or tenderness Abdominal: Soft without guarding or rebound Extremities: Normal inspection with full range of motion and normal capillary refill right sided deficits Neuroogic: alert and oriented 3, CN II-XII intact, able to ambulate with steady gait Skin: warm dry and intact with normal color - Labs CBC & Chem 7: 06/20/23 06:15 06/21/23 05:53 Labs: Abnormal Lab Results - Last 24 Hours (Table) 06/20/23 06/21/23 06/21/23 Range/Units 19:47 05:53 07:29 Creatinine 3.3 H (0.6-1.5) mg/dL Est GFR (CKD-EPI) 15 L (>=60) BUN/Creatinine Ratio 6.24 L (12.00-20.00) Ratio Glucose 137 H (70-110) mg/dL POC Glucose (mg/dL) 146 H 156 H (70-110) mg/dL Calcium 8.6 L (8.7-10.3) mg/dL Microbiology - Last 24 Hours (Table) 06/18/23 11:41 Urine Culture - Final Urine,Voided Escherichia coli
[2023-06-21 17:47] LABS: Glucose,Whole Blood 117 mg/dL (70-110)
[2023-06-21 20:31] LABS: Glucose,Whole Blood 117 mg/dL (70-110)
[2023-06-21] MEDS: MELATONIN 5 MG TABLET PO SCH (20:56)
[2023-06-21] MEDS: LATANOPROST 0.005% OPHTH DROPS 2.5 ML BTL BOTH EYES SCH (21:02)
[2023-06-21] MEDS: ACETAMINOPHEN TAB 325 MG TAB PO PRN (21:59)
[2023-06-22] MEDS: CEFEPIME 1 GM in SODIUM CHLORIDE 0.9% 50 ML IVPB SCH ×2 (05:12→17:38)
[2023-06-22] MEDS: SEVELAMER 800 MG TAB PO SCH ×3 (07:56→17:36)
[2023-06-22] MEDS: FOLIC ACID 1 MG TAB PO SCH (07:57)
[2023-06-22] MEDS: FUROSEMIDE 40 MG TAB PO SCH ×2 (07:57→17:34)
[2023-06-22] MEDS: ISOSORBIDE MONONITRATE ER 30 MG TAB.ER.24H PO SCH (07:57)
[2023-06-22] MEDS: INSULIN DETEMIR (LEVEMIR) 100 UNIT/ML SYR SQ SCH ×2 (07:57→09:24)
[2023-06-22] MEDS: HEPARIN SODIUM,PORCINE 5,000 UNIT/ML 1 ML VIAL SQ SCH ×2 (07:57→21:19)
[2023-06-22] MEDS: SERTRALINE 50 MG TAB PO SCH (07:57)
[2023-06-22] MEDS: INSULIN ASPART (NovoLOG) 100 UNIT/ML VIAL SQ SCH ×4 (08:22→21:24)
[2023-06-22] MEDS: PANTOPRAZOLE 40 MG/10 ML VIAL IVP SCH ×2 (08:23→21:20)
[2023-06-22 08:27] LABS: Glucose,Whole Blood 77 mg/dL (70-110)
[2023-06-22 09:18] LABS: BUN/Creat Ratio 4.31 Ratio (12.00-20.00); Blood Urea Nitrogen 11.2 mg/dL (9.0-27.0); Carbon Dioxide 27.2 mmol/L (21.6-31.8); Chloride 99 mmol/L (96-109); Glucose 64 mg/dL (70-110); Potassium 3.8 mmol/L (3.5-5.5); Sodium 135 mmol/L (135-145)
[2023-06-22 09:19] LABS: ALT 28 U/L (8-44); AST 17 U/L (13-35); Albumin 2.8 g/dL (3.8-4.9); Albumin/Globulin Ratio 1.47 Ratio (1.60-3.17); Alkaline Phosphatase 241 U/L (41-126); Calcium 8.6 mg/dL (8.7-10.3); Globulin 1.9 g/dL (1.6-3.3); Total Bilirubin 0.4 mg/dL (0.3-1.2); Total Protein 4.7 g/dL (6.2-8.2)
[2023-06-22 09:49] LABS: Basophils # (A) 0.07 X 10*3/uL (0.00-0.10); Basophils % (A) 0.8 %; Eosinophils # (A) 0.33 X 10*3/uL (0.04-0.35); Eosinophils % (A) 3.9 %; HCT 27.9 % (37.2-46.3); HGB 8.3 g/dL (12.0-15.0); Lymphocytes # (A) 2.16 X 10*3/uL (0.90-5.00); Lymphocytes % (A) 25.7 %; MCH 30.2 pg (27.0-32.0); MCHC 29.7 g/dL (32.0-37.0); MCV 101.5 FL (80.0-97.0); Monocytes # (A) 0.69 X 10*3/uL (0.20-1.00); Monocytes % (A) 8.2 %; NRBC Per 100 WBC 0 X 10*3/uL (0.00-0.01); Neutrophils # (A) 4.93 X 10*3/uL (1.80-7.70); Neutrophils % (A) 58.9 %; Platelet Count 130 X 10*3/uL (140-440); RBC 2.75 X 10*6/uL (4.10-5.20); RDW 13.4 % (11.5-14.5); WBC 8.39 X 10*3/uL (4.50-10.00)
[2023-06-22] MEDS: metroNIDAZOLE-NS PMX 500 MG in SALINE 1 100ML.BAG IVPB SCH ×3 (10:08→23:09)
[2023-06-22] MEDS: ATORVASTATIN 10 MG TAB PO SCH (10:23)
--- NOTE | 2023-06-22 11:59 | P.PN ---
Subjective patient is seen for follow-up for end-stage renal disease. She is maintained on Thursday schedule. No significant complaints today. Patient is resting comfortably. Tolerated hemodialysis well yesterday. Plans for transfer to [facility]. Objective - Vital Signs Vital signs: Vital Signs Temp 98.0 F 06/22/23 07:41 Pulse 73 06/22/23 07:41 Resp 16 06/22/23 07:41 BP 183/74 06/22/23 07:41 Pulse Ox 99 06/22/23 08:01 FiO2 Intake & Output 06/21/23 06/22/23 06/22/23 18:59 06:59 18:59 Intake Total 400 Output Total 1700 300 Balance -1300 -300 Weight 83 kg Intake: Hemodialysis 400 Output: Urine 300 300 Hemodialysis 1400 Other: Voiding Method Incontinent Incontinent Incontinent External Catheter External Catheter External Catheter - Exam Patient is sleeping, comfortable, no acute distress Examination of the heart S1 and S2 Examination of the lungs bilateral breath sounds are heard Abdomen is soft nontender, obese Examination of the lower extremities shows no significant edema. - Labs CBC & Chem 7: 06/22/23 06:35 06/22/23 06:35 Labs: Abnormal Lab Results - Last 24 Hours (Table) 06/21/23 06/21/23 06/22/23 Range/Units 17:46 20:29 06:35 RBC 2.75 L (4.10-5.20) X 10*6/uL Hgb 8.3 L (12.0-15.0) g/dL Hct 27.9 L (37.2-46.3) % MCV 101.5 H (80.0-97.0) FL MCHC 29.7 L (32.0-37.0) g/dL Plt Count 130 L (140-440) X 10*3/uL Immature Gran # 0.21 H (0.00-0.04) X 10*3/uL Creatinine (0.6-1.5) mg/dL Est GFR (CKD-EPI) (>=60) BUN/Creatinine Ratio (12.00-20.00) Ratio Glucose (70-110) mg/dL POC Glucose (mg/dL) 117 H 117 H (70-110) mg/dL Calcium (8.7-10.3) mg/dL Alkaline Phosphatase (41-126) U/L Total Protein (6.2-8.2) g/dL Albumin (3.8-4.9) g/dL Albumin/Globulin Ratio (1.60-3.17) Ratio 06/22/ Range/Units 06:35 RBC (4.10-5.20) X 10*6/uL Hgb (12.0-15.0) g/dL Hct (37.2-46.3) % MCV (80.0-97.0) FL MCHC (32.0-37.0) g/dL Plt Count (140-440) X 10*3/uL Immature Gran # (0.00-0.04) X 10*3/uL Creatinine 2.6 H (0.6-1.5) mg/dL Est GFR (CKD-EPI) 20 L (>=60) BUN/Creatinine Ratio 4.31 L (12.00-20.00) Ratio Glucose 64 L (70-110) mg/dL POC Glucose (mg/dL) (70-110) mg/dL Calcium 8.6 L (8.7-10.3) mg/dL Alkaline Phosphatase 241 H (41-126) U/L Total Protein 4.7 L (6.2-8.2) g/dL Albumin 2.8 L (3.8-4.9) g/dL Albumin/Globulin Ratio 1.47 L (1.60-3.17) Ratio Assessment and Plan Assessment: 1. End-stage renal disease on hemodialysis on a Thursday schedule. 2. Elevated alkaline phosphatase with dilated bile duct and gallbladder packed with calculi. Surgery has been consulted. There are plans for transfer to [facility] 3. CK D mineral disorder Plan: Hemodialysis on 06/24/2023 Resume Renvela with meals when eating.
[2023-06-22 12:14] LABS: Glucose,Whole Blood 90 mg/dL (70-110)
[2023-06-22] MEDS: hydrALAZINE HCL 25 MG TAB PO SCH ×2 (12:49→21:19)
--- NOTE | 2023-06-22 16:29 | P.PN ---
Subjective Progress Note Date: 06/22/23 67-year-old female with past medical history of hypertension, diabetes mellitus, DVT/PE, coronary artery disease, CVA/TIA, end-stage renal disease, presents the emergency department with a chief complaint of abnormal laboratory studies. Patient presents from [facility]. Per EMS patient had abnormal laboratory studies. She does report having a slight nonproductive cough with nausea and vomiting. Patient is alert and oriented 2 which is her baseline. Patient has right sided deficits at Baseline from previous CVA. Patient had abdominal ultrasound completed due to elevated liver enzymes results did show gallbladder is packed with calculi and is mostly obscured by the extensive shadowing. Bile duct dilated at 8 mm. Questionable double ducts within the liver that could reflect intrahepatic biliary ductal dilatation. Correlate for possible biliary obstruction. Sodium 137 potassium 3.5 creatinine 3.35 Total bilirubin 0.9 AST 71 down to 34 ALT 1:30 down to 85 alk phos 447 down to 378 24 hour interval change 06/21/2023 Patient is seen and evaluated with and discussed with nursing staff; surgery recommendations noted and appreciated MRCP reveals choledocholithiasis embarking: Bilateral impacted -- GI recommending patient to be transferred to outside facility for urgent ERCP --Called patient's guardian Shaista for update on transfer; message left 06/21/2023 Patient is seen and evaluated in room at bedside; no specific complaints Vital signs are reviewed and remained stable Lab review shows downtrending liver enzymes Patient has been accepted at [facility] -- Await bed or getting Objective - Vital Signs Vital signs: Vital Signs Temp 98.0 F 06/22/23 07:41 Pulse 73 06/22/23 07:41 Resp 16 06/22/23 07:41 BP 183/74 06/22/23 07:41 Pulse Ox 99 06/22/23 08:01 FiO2 Intake & Output 06/21/23 06/22/23 06/22/23 18:59 06:59 18:59 Intake Total 400 Output Total 1700 300 Balance -1300 -300 Weight 83 kg Intake: Hemodialysis 400 Output: Urine 300 300 Hemodialysis 1400 Other: Voiding Method Incontinent Incontinent Incontinent External Catheter External Catheter External Catheter - Exam General: Alert, in no acute distress Head: atraumatic normocephalic. Eyes PERRL, EOMI intact, mucous membranes moist Respiratory: Lungs clear to auscultation bilaterally Cardiovascular: Regular rate and rhythm Chest: With this catheter to right upper chest without surrounding erythema or tenderness Abdominal: Soft without guarding or rebound Extremities: Normal inspection with full range of motion and normal capillary refill right sided deficits Neuroogic: alert and oriented 3, CN II-XII intact, able to ambulate with steady gait Skin: warm dry and intact with normal color - Labs CBC & Chem 7: 06/22/23 06:35 06/22/23 06:35 Labs: Abnormal Lab Results - Last 24 Hours (Table) 06/21/23 06/21/23 06/22/23 Range/Units 17:46 20:29 06:35 RBC 2.75 L (4.10-5.20) X 10*6/uL Hgb 8.3 L (12.0-15.0) g/dL Hct 27.9 L (37.2-46.3) % MCV 101.5 H (80.0-97.0) FL MCHC 29.7 L (32.0-37.0) g/dL Plt Count 130 L (140-440) X 10*3/uL Immature Gran # 0.21 H (0.00-0.04) X 10*3/uL Creatinine (0.6-1.5) mg/dL Est GFR (CKD-EPI) (>=60) BUN/Creatinine Ratio (12.00-20.00) Ratio Glucose (70-110) mg/dL POC Glucose (mg/dL) 117 H 117 H (70-110) mg/dL Calcium (8.7-10.3) mg/dL Alkaline Phosphatase (41-126) U/L Total Protein (6.2-8.2) g/dL Albumin (3.8-4.9) g/dL Albumin/Globulin Ratio (1.60-3.17) Ratio 06/22/23 Range/Units 06:35 RBC (4.10-5.20) X 10*6/uL Hgb (12.0-15.0) g/dL Hct (37.2-46.3) % MCV (80.0-97.0) FL MCHC (32.0-37.0) g/dL Plt Count (140-440) X 10*3/uL Immature Gran # (0.00-0.04) X 10*3/uL Creatinine 2.6 H (0.6-1.5) mg/dL Est GFR (CKD-EPI) 20 L (>=60) BUN/Creatinine Ratio 4.31 L (12.00-20.00) Ratio Glucose 64 L (70-110) mg/dL POC Glucose (mg/dL) (70-110) mg/dL Calcium 8.6 L (8.7-10.3) mg/dL Alkaline Phosphatase 241 H (41-126) U/L Total Protein 4.7 L (6.2-8.2) g/dL Albumin 2.8 L (3.8-4.9) g/dL Albumin/Globulin Ratio 1.47 L (1.60-3.17) Ratio Assessment and Plan Assessment: 1. Cholelithiasis with right upper quadrant pain/cholecystitis - Patient has been placed on IV fluids, IV antibiotics and pain control - Gen. surgery on board and recommending supportive care 2. Possible choledocholithiasis - Blood work reveals elevated liver enzymes; right upper quadrant ultrasound completed reveals mild dilation -- Patient has been placed on IV antibiotics -- General surgery on board and recommending clear liquid diet and IV fluids -- MRCP is ordered for evaluation of possible choledocholithiasis 3. End-stage renal disease/hemodialysis; nephrology consult; patient undergoing hemodialysis 4. Hypertension; Coreg 3.125 mg twice a day; hydralazine 25 mg daily 5. Diabetes mellitus controlled with insulin; Lantus 45 units subcu daily 6. DVT/PE; patient is currently on systemic anticoagulation which is placed on hold till final decision on any surgical needs 7. Hyperlipidemia; Lipitor 10 mg daily at bedtime 8. Seizure disorder; Keppra 250 mg daily DVT prophylaxis; SCDs CODE STATUS; full code
--- NOTE | 2023-06-22 16:51 | P.PN ---
Subjective Progress Note Date: 06/22/23 CHIEF COMPLAINT: Elevated liver enzymes HISTORY OF PRESENT ILLNESS: The patient is a 67-year-old female admitted with transaminitis and choledocholithiasis. No acute abdominal pain. She is resting comfortably. ROS: No reports of nausea and vomiting. No fevers or chills. No new chest pain. No productive sputum PHYSICAL EXAM: VITAL SIGNS: Reviewed CONSTITUTIONAL: Well developed and in no acute distress. EYES: Conjuctivae without sclera icterus. Extraocular movements grossly intact. HEAD, EARS, NOSE, THROAT: Moist buccal mucosa. Head is atraumatic, normocephalic. Hears conversational speech. No nasal drainage. RESPIRATORY: Non-labored respirations and equal bilateral excursions. CARDIOVASCULAR: Palpable 2+ radial pulses. ABDOMEN: Obese, nontender. MUSCULOSKELETAL: No gross deformity of the lower extremities noted. No clubbing. No cyanosis. SKIN: Good skin turgor. Well perfused. NEUROLOGIC: Cranial nerves II through XII grossly intact. No focal or lateralizing signs. PSYCH: Flat affect. CLINICAL LABS: Reviewed. WBC normal. LFTs normal. STUDIES: MRCP obtained for choledocholithiasis. Findings consistent with severe choledocholithiasis involving common bile duct and hepatic duct. ASSESSMENT: 1. Transaminitis 2. Choledocholithiasis PLAN: 1. With common bile duct stones and risk for obstruction, transfer to facility for ERCP advised. 2. GI coverage not available at this facility. Objective - Vital Signs Vital signs: Vital Signs Temp 98.7 F 06/22/23 12:51 Pulse 80 06/22/23 12:51 Resp 17 06/22/23 12:51 BP 165/76 06/22/23 12:51 Pulse Ox 99 06/22/23 12:51 FiO2 Intake & Output 06/21/23 06/22/23 06/22/23 18:59 06:59 18:59 Intake Total 400 Output Total 1700 300 Balance -1300 -300 Weight 83 kg Intake: Hemodialysis 400 Output: Urine 300 300 Hemodialysis 1400 Other: Voiding Method Incontinent Incontinent Incontinent External Catheter External Catheter External Catheter - Labs CBC & Chem 7: 06/22/23 06:35 06/22/23 06:35 Labs: Abnormal Lab Results - Last 24 Hours (Table) 06/21/23 06/21/23 06/22/23 Range/Units 17:46 20:29 06:35 RBC 2.75 L (4.10-5.20) X 10*6/uL Hgb 8.3 L (12.0-15.0) g/dL Hct 27.9 L (37.2-46.3) % MCV 101.5 H (80.0-97.0) FL MCHC 29.7 L (32.0-37.0) g/dL Plt Count 130 L (140-440) X 10*3/uL Immature Gran # 0.21 H (0.00-0.04) X 10*3/uL Creatinine (0.6-1.5) mg/dL Est GFR (CKD-EPI) (>=60) BUN/Creatinine Ratio (12.00-20.00) Ratio Glucose (70-110) mg/dL POC Glucose (mg/dL) 117 H 117 H (70-110) mg/dL Calcium (8.7-10.3) mg/dL Alkaline Phosphatase (41-126) U/L Total Protein (6.2-8.2) g/dL Albumin (3.8-4.9) g/dL Albumin/Globulin Ratio (1.60-3.17) Ratio 06/22/23 Range/Units 06:35 RBC (4.10-5.20) X 10*6/uL Hgb (12.0-15.0) g/dL Hct (37.2-46.3) % MCV (80.0-97.0) FL MCHC (32.0-37.0) g/dL Plt Count (140-440) X 10*3/uL Immature Gran # (0.00-0.04) X 10*3/uL Creatinine 2.6 H (0.6-1.5) mg/dL Est GFR (CKD-EPI) 20 L (>=60) BUN/Creatinine Ratio 4.31 L (12.00-20.00) Ratio Glucose 64 L (70-110) mg/dL POC Glucose (mg/dL) (70-110) mg/dL Calcium 8.6 L (8.7-10.3) mg/dL Alkaline Phosphatase 241 H (41-126) U/L Total Protein 4.7 L (6.2-8.2) g/dL Albumin 2.8 L (3.8-4.9) g/dL Albumin/Globulin Ratio 1.47 L (1.60-3.17) Ratio
[2023-06-22] MEDS: levETIRAcetam 250 MG TAB PO SCH (17:34)
[2023-06-22] MEDS: FOLIC ACID-VIT B COMPLEX-VIT C 1 CAP PO SCH (17:34)
[2023-06-22 17:54] LABS: Glucose,Whole Blood 103 mg/dL (70-110)
[2023-06-22 20:14] LABS: Glucose,Whole Blood 109 mg/dL (70-110)
[2023-06-22] MEDS: MELATONIN 5 MG TABLET PO SCH (21:19)
[2023-06-22] MEDS: LATANOPROST 0.005% OPHTH DROPS 2.5 ML BTL BOTH EYES SCH (21:21)
[2023-06-22] MEDS: ACETAMINOPHEN TAB 325 MG TAB PO PRN (23:09)
[2023-06-23] MEDS: SEVELAMER 800 MG TAB PO SCH ×3 (06:34→17:28)
[2023-06-23] MEDS: ISOSORBIDE MONONITRATE ER 30 MG TAB.ER.24H PO SCH (06:35)
[2023-06-23] MEDS: SERTRALINE 50 MG TAB PO SCH (06:35)
[2023-06-23] MEDS: FUROSEMIDE 40 MG TAB PO SCH ×2 (06:35→17:21)
[2023-06-23] MEDS: FOLIC ACID 1 MG TAB PO SCH (06:35)
[2023-06-23] MEDS: hydrALAZINE HCL 25 MG TAB PO SCH ×2 (06:35→21:26)
[2023-06-23] MEDS: carvediloL 3.125 MG TAB PO SCH ×2 (06:35→17:21)
[2023-06-23] MEDS: CEFEPIME 1 GM in SODIUM CHLORIDE 0.9% 50 ML IVPB SCH ×2 (06:36→18:53)
[2023-06-23 07:22] LABS: Glucose,Whole Blood 136 mg/dL (70-110)
[2023-06-23] MEDS: INSULIN ASPART (NovoLOG) 100 UNIT/ML VIAL SQ SCH ×4 (07:56→21:18)
[2023-06-23] MEDS: PANTOPRAZOLE 40 MG/10 ML VIAL IVP SCH ×2 (09:06→21:27)
[2023-06-23] MEDS: metroNIDAZOLE-NS PMX 500 MG in SALINE 1 100ML.BAG IVPB SCH ×4 (09:07→23:49)
[2023-06-23] MEDS: HEPARIN SODIUM,PORCINE 5,000 UNIT/ML 1 ML VIAL SQ SCH ×2 (09:07→21:19)
[2023-06-23] MEDS: ATORVASTATIN 10 MG TAB PO SCH (09:15)
[2023-06-23] MEDS: INSULIN DETEMIR (LEVEMIR) 100 UNIT/ML SYR SQ SCH (10:02)
[2023-06-23 10:57] LABS: ALT 29 U/L (8-44); AST 19 U/L (13-35); Albumin 2.9 g/dL (3.8-4.9); Albumin/Globulin Ratio 1.45 Ratio (1.60-3.17); Alkaline Phosphatase 236 U/L (41-126); BUN/Creat Ratio 4.53 Ratio (12.00-20.00); Blood Urea Nitrogen 16.3 mg/dL (9.0-27.0); Calcium 8.8 mg/dL (8.7-10.3); Carbon Dioxide 23.9 mmol/L (21.6-31.8); Chloride 98 mmol/L (96-109); Glucose 123 mg/dL (70-110); Potassium 4.4 mmol/L (3.5-5.5); Sodium 135 mmol/L (135-145); Total Bilirubin 0.4 mg/dL (0.3-1.2); Total Protein 4.9 g/dL (6.2-8.2)
[2023-06-23 11:57] LABS: Glucose,Whole Blood 156 mg/dL (70-110)
[2023-06-23 16:34] VITALS: BMI 27.4
[2023-06-23] MEDS: FOLIC ACID-VIT B COMPLEX-VIT C 1 CAP PO SCH (17:21)
[2023-06-23] MEDS: levETIRAcetam 250 MG TAB PO SCH (17:28)
--- NOTE | 2023-06-23 17:35 | P.PN ---
Subjective 67-year-old female with past medical history of hypertension, diabetes mellitus, DVT/PE, coronary artery disease, CVA/TIA, end-stage renal disease, presents the emergency department with a chief complaint of abnormal laboratory studies. Patient presents from [facility]. Per EMS patient had abnormal laboratory studies. She does report having a slight nonproductive cough with nausea and vomiting. Patient is alert and oriented 2 which is her baseline. Patient has right sided deficits at Baseline from previous CVA. Patient had abdominal ultrasound completed due to elevated liver enzymes results did show gallbladder is packed with calculi and is mostly obscured by the extensive shadowing. Bile duct dilated at 8 mm. Questionable double ducts within the liver that could reflect intrahepatic biliary ductal dilatation. Correlate for possible biliary obstruction. Sodium 137 potassium 3.5 creatinine 3.35 Total bilirubin 0.9 AST 71 down to 34 ALT 1:30 down to 85 alk phos 447 down to 378 24 hour interval change 06/21/2023 Patient is seen and evaluated with and discussed with nursing staff; surgery recommendations noted and appreciated MRCP reveals choledocholithiasis embarking: Bilateral impacted -- GI recommending patient to be transferred to outside facility for urgent ERCP --Called patient's guardian Shaista for update on transfer; message left 06/21/2023 Patient is seen and evaluated in room at bedside; no specific complaints Vital signs are reviewed and remained stable Lab review shows downtrending liver enzymes Patient has been accepted at [facility] -- Await bed or getting 06/22/2023, i am resuming the care of the pt today Patient is poor historian, she does not answers questions, her mentation at baseline as per family at bedside patient on liquid diet, almost not eating only minimal Patient is hemodynamically stable WBCs improved 3.6 Patient remains on cefepime and oral Flagyl also she is on insulin and Keppra, glucose monitor closely Urine cultures growing E. coli Pending transfer to [facility] Objective - Vital Signs Vital signs: Vital Signs Temp 98.6 F 06/23/23 12:30 Pulse 81 06/23/23 12:30 Resp 17 06/23/23 12:30 BP 146/73 06/23/23 12:30 Pulse Ox 98 06/23/23 12:30 FiO2 Intake & Output 06/22/23 06/23/23 06/23/23 18:59 06:59 18:59 Intake Total 300 590 Output Total 500 400 Balance -200 190 Weight 79.5 kg Intake: Oral 300 590 Output: Urine 500 400 Other: Voiding Method Incontinent Incontinent Incontinent External Catheter External Catheter External Catheter - Exam -GENERAL: The patient is alert , no acute distress HEENT: Pupils are round and equally reacting to light. EOMI. No scleral icterus. No conjunctival pallor. Normocephalic, atraumatic. No pharyngeal erythema. No thyromegaly. CARDIOVASCULAR: S1 and S2 present. No murmurs, rubs, or gallops. PULMONARY: Chest is clear to auscultation, no wheezing , no crackles. ABDOMEN: Soft, nontender, nondistended, normoactive bowel sounds. No palpable or ganomegaly. MUSCULOSKELETAL: No joint swelling or deformity. EXTREMITIES: No cyanosis, clubbing, or pedal edema. NEUROLOGICAL: Gross neurological examination did not reveal any focal deficits. SKIN: No rashes. no petechiae. - Labs CBC & Chem 7: 06/22/23 06:35 06/23/23 06:24 Labs: Abnormal Lab Results - Last 24 Hours (Table) 06/23/23 06/23/23 06/23/23 Range/Units 06:24 07:21 11:56 Anion Gap 13.10 H (4.00-12.00) mmol/L Creatinine 3.6 H (0.6-1.5) mg/dL Est GFR (CKD-EPI) 13 L (>=60) BUN/Creatinine Ratio 4.53 L (12.00-20.00) Ratio Glucose 123 H (70-110) mg/dL POC Glucose (mg/dL) 136 H 156 H (70-110) mg/dL Alkaline Phosphatase 236 H (41-126) U/L Total Protein 4.9 L (6.2-8.2) g/dL Albumin 2.9 L (3.8-4.9) g/dL Albumin/Globulin Ratio 1.45 L (1.60-3.17) Ratio Assessment and Plan Assessment: 1. Cholelithiasis with right upper quadrant pain/cholecystitis - Patient has been placed on IV fluids, IV antibiotics and pain control - Gen. surgery on board and recommending supportive care - Pending transfer to [facility] 2. Possible choledocholithiasis - Blood work reveals elevated liver enzymes; right upper quadrant ultrasound completed reveals mild dilation -- Patient has been placed on IV antibiotics -- General surgery on board and recommending clear liquid diet and IV fluids -- MRCP is ordered for evaluation of possible choledocholithiasis 3. End-stage renal disease/hemodialysis; nephrology consult; patient undergoing hemodialysis 4. Hypertension; Coreg 3.125 mg twice a day; hydralazine 25 mg daily 5. Diabetes mellitus controlled with insulin; Lantus 45 units subcu daily 6. DVT/PE; patient is currently on systemic anticoagulation which is placed on hold till final decision on any surgical needs 7. Hyperlipidemia; Lipitor 10 mg daily at bedtime 8. Seizure disorder; Keppra 250 mg daily DVT prophylaxis; SCDs CODE STATUS; full code
[2023-06-23 17:52] LABS: Glucose,Whole Blood 163 mg/dL (70-110)
[2023-06-23 20:30] LABS: Glucose,Whole Blood 231 mg/dL (70-110)
[2023-06-23] MEDS: MELATONIN 5 MG TABLET PO SCH (21:20)
[2023-06-23] MEDS: ACETAMINOPHEN TAB 325 MG TAB PO PRN (21:24)
[2023-06-23] MEDS: LATANOPROST 0.005% OPHTH DROPS 2.5 ML BTL BOTH EYES SCH (21:30)
[2023-06-24] MEDS: CEFEPIME 1 GM in SODIUM CHLORIDE 0.9% 50 ML IVPB SCH ×2 (05:15→18:46)
[2023-06-24 07:51] LABS: Glucose,Whole Blood 160 mg/dL (70-110)
[2023-06-24] MEDS: INSULIN DETEMIR (LEVEMIR) 100 UNIT/ML SYR SQ SCH (09:04)
[2023-06-24] MEDS: INSULIN ASPART (NovoLOG) 100 UNIT/ML VIAL SQ SCH ×3 (09:04→17:44)
[2023-06-24] MEDS: PANTOPRAZOLE 40 MG/10 ML VIAL IVP SCH (09:05)
[2023-06-24] MEDS: HEPARIN SODIUM,PORCINE 5,000 UNIT/ML 1 ML VIAL SQ SCH (09:07)
[2023-06-24] MEDS: ISOSORBIDE MONONITRATE ER 30 MG TAB.ER.24H PO SCH (09:08)
[2023-06-24] MEDS: FOLIC ACID 1 MG TAB PO SCH (09:08)
[2023-06-24] MEDS: metroNIDAZOLE-NS PMX 500 MG in SALINE 1 100ML.BAG IVPB SCH ×2 (09:09→16:21)
[2023-06-24] MEDS: FUROSEMIDE 40 MG TAB PO SCH ×2 (09:09→18:46)
[2023-06-24] MEDS: SEVELAMER 800 MG TAB PO SCH ×3 (09:09→18:46)
[2023-06-24] MEDS: SERTRALINE 50 MG TAB PO SCH (09:09)
[2023-06-24] MEDS: ATORVASTATIN 10 MG TAB PO SCH (09:13)
--- NOTE | 2023-06-24 11:09 | P.PN ---
Subjective Progress Note Date: 06/24/23 Principal diagnosis: Choledocholithiasis Patient doing well. Denies abdominal pain. No nausea or vomiting. Objective - Vital Signs Vital signs: Vital Signs Temp 97.4 F L 06/24/23 08:00 Pulse 82 06/24/23 10:15 Resp 20 06/24/23 08:00 BP 145/64 06/24/23 10:15 Pulse Ox 100 06/24/23 08:00 FiO2 Intake & Output 06/23/23 06/24/23 06/24/23 18:59 06:59 18:59 Output Total 175 100 Balance -175 -100 Weight 79.5 kg 99 kg Output: Urine 175 100 Other: Voiding Method Incontinent Incontinent Incontinent External Catheter External Catheter External Catheter # Bowel Movements 1 - Exam Abdomen: Soft, nontender, nondistended - Labs CBC & Chem 7: 06/22/23 06:35 06/23/23 06:24 Labs: Abnormal Lab Results - Last 24 Hours (Table) 06/23/23 06/23/23 06/23/23 Range/Units 11:56 17:51 20:28 POC Glucose (mg/dL) 156 H 163 H 231 H (70-110) mg/dL 06/24/23 Range/Units 07:08 POC Glucose (mg/dL) 160 H (70-110) mg/dL Assessment and Plan (1) Cholelithiasis Narrative/Plan: 68-year-old female with choledocholithiasis and associated cholecystitis. Apparently she has been accepted and awaiting transfer. We'll sign off. Please call if needed. Current Visit: Yes Status: Acute Code(s): K80.20 - CALCULUS OF GALLBLADDER W/O CHOLECYSTITIS W/O OBSTRUCTION SNOMED Code(s): 514473561
--- NOTE | 2023-06-24 11:50 | P.PN ---
Subjective patient is seen for follow-up for end-stage renal disease. She is maintained on Thursday schedule. No significant complaints today. Patient is resting comfortably. Objective - Vital Signs Vital signs: Vital Signs Temp 97.4 F L 06/24/23 08:00 Pulse 82 06/24/23 10:15 Resp 20 06/24/23 08:00 BP 145/64 06/24/23 10:15 Pulse Ox 100 06/24/23 08:00 FiO2 Intake & Output 06/23/23 06/24/23 06/24/23 18:59 06:59 18:59 Output Total 175 100 Balance -175 -100 Weight 79.5 kg 99 kg Output: Urine 175 100 Other: Voiding Method Incontinent Incontinent Incontinent External Catheter External Catheter External Catheter # Bowel Movements 1 - Exam Patient is sleeping, comfortable, no acute distress Examination of the heart S1 and S2 Examination of the lungs bilateral breath sounds are heard Abdomen is soft nontender, obese Examination of the lower extremities shows no significant edema. - Labs CBC & Chem 7: 06/22/23 06:35 06/23/23 06:24 Labs: Abnormal Lab Results - Last 24 Hours (Table) 06/23/23 06/23/23 06/23/23 Range/Units 11:56 17:51 20:28 POC Glucose (mg/dL) 156 H 163 H 231 H (70-110) mg/dL 06/24/23 Range/Units 07:08 POC Glucose (mg/dL) 160 H (70-110) mg/dL Assessment and Plan Assessment: 1. End-stage renal disease on hemodialysis on a Thursday schedule. 2. Elevated alkaline phosphatase with dilated bile duct and gallbladder packed with calculi. Surgery has been consulted. There are plans for transfer to [facility] 3. CK D mineral disorder Plan: Hemodialysis today Resume Renvela with meals when eating.
--- NOTE | 2023-06-24 11:51 | P.PN ---
Subjective patient is seen for follow-up for end-stage renal disease. She is maintained on Thursday schedule. No significant complaints today. Patient is resting comfortably. Awaiting transfer to [facility] Objective - Vital Signs Vital signs: Vital Signs Temp 97.4 F L 06/24/23 08:00 Pulse 82 06/24/23 10:15 Resp 20 06/24/23 08:00 BP 145/64 06/24/23 10:15 Pulse Ox 100 06/24/23 08:00 FiO2 Intake & Output 06/23/23 06/24/23 06/24/23 18:59 06:59 18:59 Output Total 175 100 Balance -175 -100 Weight 79.5 kg 99 kg Output: Urine 175 100 Other: Voiding Method Incontinent Incontinent Incontinent External Catheter External Catheter External Catheter # Bowel Movements 1 - Exam Patient is sleeping, comfortable, no acute distress Examination of the heart S1 and S2 Examination of the lungs bilateral breath sounds are heard Abdomen is soft nontender, obese Examination of the lower extremities shows no significant edema. - Labs CBC & Chem 7: 06/22/23 06:35 06/23/23 06:24 Labs: Abnormal Lab Results - Last 24 Hours (Table) 06/23/23 06/23/23 06/23/23 Range/Units 11:56 17:51 20:28 POC Glucose (mg/dL) 156 H 163 H 231 H (70-110) mg/dL 06/24/23 Range/Units 07:08 POC Glucose (mg/dL) 160 H (70-110) mg/dL Assessment and Plan Assessment: 1. End-stage renal disease on hemodialysis on a Thursday schedule. 2. Elevated alkaline phosphatase with dilated bile duct and gallbladder packed with calculi. Surgery has been consulted. There are plans for transfer to [facility] 3. CK D mineral disorder Plan: Hemodialysis in a.m. Resume Renvela with meals when eating.
[2023-06-24 12:18] LABS: Glucose,Whole Blood 114 mg/dL (70-110)
[2023-06-24] MEDS: hydrALAZINE HCL 25 MG TAB PO SCH (13:46)
--- NOTE | 2023-06-24 13:59 | P.DS ---
Providers Date of admission: 06/18/23 16:20 Attending physician: Laron Warren MD Consults: 06/19/23 08:10 Consult Physician Routine Consulting Provider: Una Presley Consult Reason/Comments: Possible choledocholithiasis Do you want consulting provider notified?: Yes 06/19/23 11:19 Consult Physician Routine Consulting Provider: Flori Knutson Consult Reason/Comments: hemodialysis patient Do you want consulting provider notified?: Already Contacted Primary care physician: Pankaj Zendejas [facility] Course: Diagnoses: 1. Cholelithiasis with right upper quadrant pain/cholecystitis- Pending transfer to [facility] 2. choledocholithiasis -- MRCP : choledocholithiasis of the common hepatic duct and common bile duct measuring up to 1 cm and 8 cm lung, gallbladder packed with gallstones 3. End-stage renal disease/hemodialysis; nephrology consult; patient undergoing hemodialysis 4. Hypertension; Coreg 3.125 mg twice a day; hydralazine 25 mg daily 5. Diabetes mellitus controlled with insulin; Lantus 45 units subcu daily 6. DVT/PE; patient is currently on systemic anticoagulation which is placed on hold till final decision on any surgical needs 7. Hyperlipidemia; Lipitor 10 mg daily at bedtime 8. Seizure disorder; Keppra 250 mg daily Hospital course: 67-year-old female with past medical history of hypertension, diabetes mellitus, DVT/PE, coronary artery disease, CVA/TIA, end-stage renal disease, presents the emergency department with a chief complaint of abnormal laboratory studies. Patient presents from [facility]. Per EMS patient niño d abnormal laboratory studies. She does report having a slight nonproductive cough with nausea and vomiting. Currently her vomiting stopped and she is able to tolerate diet but workup showing extensive gallbladder disease with stones and extensive course to cholelithiasis, there is no jugular conversant in this facility so she is going to be transferred to [facility]. As the case with Dr. Cordoba and he kindly accepted the patient for transfer. Her elevated liver enzymes trending down. Patient currently at basic mental status, confirmed with family at bedside per staff. Patient evaluated by surgery team. Also nephrology were following for hemodialysis Patient currently stable for transfer and guarded prognosis Physical exam Gen: patient is a AAOx3, no distress CVS: S1-S2, RRR, no murmur Lungs: B/L CTA, no wheezing Abdomen: soft, no distention, no tenderness, positive bowel sounds Extremity: no leg edema or induration Time spent more than 35 minutes Patient Condition at Discharge: Fair Plan - Discharge Summary New Discharge Prescriptions: No Action Omeprazole 20 mg PO DIRECTED Latanoprost/Pf [Latanoprost 0.005% Eye Drop] 1 drop BOTH EYES DAILY@2100 ondansetron HCL [Zofran] 4 mg PO Q4H PRN PRN Reason: Nausea And Vomiting Melatonin 5 mg PO HS@2100 bisacodyL [Bisacodyl] 10 mg PO HS PRN PRN Reason: Constipation Apixaban [Eliquis] 2.5 mg PO BID@0700,1700 Liquicel 30 ml PO BID@1200,1700 carvediloL [Coreg] 3.125 mg PO MOWEFR@1700 levETIRAcetam [Keppra] 250 mg PO DAILY@1700 Ergocalciferol [Vitamin D2 (1250 Mcg = 30821 Iu)] 1,250 mcg PO Q14D@1700 Furosemide [Lasix] 40 mg PO BID@0700,1700 hydrALAZINE HCL [Apresoline] 25 mg PO SUTUTHSA@0700,2100 Isosorbide Mononitrate ER [Imdur] 30 mg PO DAILY@0700 Sertraline [Zoloft] 50 mg PO DAILY@0700 Dialyvite 800mg 1 tab PO DAILY@1700 Acetaminophen Tab [Tylenol] 650 mg PO Q4H PRN PRN Reason: Mild Pain Or Fever > 100.5 Atorvastatin [Lipitor] 10 mg PO DIRECTED carvediloL [Coreg] 3.125 mg PO SUTUTHSA@0700,1700 Folic Acid 0.4 mg PO DAILY@0700 hydrALAZINE HCL [Apresoline] 25 mg PO MOWEFR@1200,2100 Insulin Glargine [Lantus Vial] 45 unit SQ DAILY@0700 Loperamide [Imodium] 2 - 4 mg PO QID PRN PRN Reason: Loose Stool Sevelamer [Renvela] 1,600 mg PO AC-TID@07,12,17 Discharge Medication List Latanoprost/Pf [Latanoprost 0.005% Eye Drop] 1 drop BOTH EYES DAILY@2100 08/30/18 [History] Omeprazole 20 mg PO DIRECTED 08/30/18 [History] ondansetron HCL [Zofran] 4 mg PO Q4H PRN 08/30/18 [History] Apixaban [Eliquis] 2.5 mg PO BID@0700,1700 08/06/20 [History] Melatonin 5 mg PO HS@2100 08/06/20 [History] bisacodyL [Bisacodyl] 10 mg PO HS PRN 08/06/20 [History] Liquicel 30 ml PO BID@1200,1700 11/28/20 [History] carvediloL [Coreg] 3.125 mg PO MOWEFR@1700 11/28/20 [History] Ergocalciferol [Vitamin D2 (1250 Mcg = 74196 Iu)] 1,250 mcg PO Q14D@1700 04/15/21 [History] levETIRAcetam [Keppra] 250 mg PO DAILY@17004/15/21 [History] Acetaminophen Tab [Tylenol] 650 mg PO Q4H PRN 06/18/23 [History] Atorvastatin [Lipitor] 10 mg PO DIRECTED 06/18/23 [History] Dialyvite 800mg 1 tab PO DAILY@17006/18/23 [History] Folic Acid 0.4 mg PO DAILY@0706/18/23 [History] Furosemide [Lasix] 40 mg PO BID@0700,1700 06/18/23 [History] Insulin Glargine [Lantus Vial] 45 unit SQ DAILY@0706/18/23 [History] Isosorbide Mononitrate ER [Imdur] 30 mg PO DAILY@0700 06/18/23 [History] Loperamide [Imodium] 2 - 4 mg PO QID PRN 06/18/23 [History] Sertraline [Zoloft] 50 mg PO DAILY@0700 06/18/23 [History] Sevelamer [Renvela] 1,600 mg PO AC-TID@07,12,17 06/18/23 [History] carvediloL [Coreg] 3.125 mg PO SUTUTHSA@0700,1700 06/18/23 [History] hydrALAZINE HCL [Apresoline] 25 mg PO MOWEFR@1200,2100 06/18/23 [History] hydrALAZINE HCL [Apresoline] 25 mg PO SUTUTHSA@07,209906/18/23 [History] Follow up Appointment(s)/Referral(s): Pankaj Zendejas MD [Primary Care Provider] - 1-2 days
[2023-06-24 14:19] VITALS: BP 99/56; PULSE 80; RESP 18; TEMP 97.5
[2023-06-24] MEDS: carvediloL 3.125 MG TAB PO SCH (16:21)
[2023-06-24 17:36] LABS: Glucose,Whole Blood 114 mg/dL (70-110)
[2023-06-24] MEDS: FOLIC ACID-VIT B COMPLEX-VIT C 1 CAP PO SCH (18:45)
[2023-06-24] MEDS: levETIRAcetam 250 MG TAB PO SCH (18:46)
[2023-07-01] MEDS ORDERED: ERGOCALCIFEROL 1,250 MCG (50,000 IU) CAPSULE PO SCH (17:00)
== END 2023-06-24 19:01 | disposition short-term general hospital (02) | DRG 444 ==
LOC: EC 10:26 → 5NMEDONC 16:20
PROVIDERS: ADMIT Internal Medicine; ATTEND Internal Medicine
PROC: 5A1D70Z Performance of Urinary Filtration, Intermittent, Less than 6 Hours Per Day (ICD-10-PCS; principal; 2023-06-19)
DX: K80.65 Calculus of gallbladder and bile duct with chronic cholecystitis with obstruction (principal); N18.6 End stage renal disease; I13.2 Hypertensive heart and chronic kidney disease with heart failure and with stage 5 chronic kidney disease, or end stage renal disease; I69.351 Hemiplegia and hemiparesis following cerebral infarction affecting right dominant side; Z99.2 Dependence on renal dialysis; Z79.899 Other long term (current) drug therapy; Z20.822 Contact with and (suspected) exposure to COVID-19; B96.20 Unspecified Escherichia coli [E. coli] as the cause of diseases classified elsewhere; E11.22 Type 2 diabetes mellitus with diabetic chronic kidney disease; E78.5 Hyperlipidemia, unspecified; F10.20 Alcohol dependence, uncomplicated; R74.01 Elevation of levels of liver transaminase levels; I25.10 Atherosclerotic heart disease of native coronary artery without angina pectoris; F32.A Depression, unspecified; F41.9 Anxiety disorder, unspecified; G40.909 Epilepsy, unspecified, not intractable, without status epilepticus; Z86.711 Personal history of pulmonary embolism; Z86.14 Personal history of Methicillin resistant Staphylococcus aureus infection; Z79.01 Long term (current) use of anticoagulants; Z79.4 Long term (current) use of insulin; Z86.718 Personal history of other venous thrombosis and embolism; Z88.8 Allergy status to other drugs, medicaments and biological substances; Z88.5 Allergy status to narcotic agent; Z91.048 Other nonmedicinal substance allergy status
CPT/HCPCS: 36415; 71046; 74181; 76705; 80048; 80053; 81001; 82248; 83036; 83605; 83880; 84145; 85025; 87077; 87086; 87186; 87636; 90935; 94760; 96365; 96366; 96367; 99285